=== PATIENT | male | born 1945 | race Caucasian/White ===

== ENCOUNTER 2018-05-13 06:30 | Day surgery (SDC) | payer OTHER ==
[2018-05-12 15:31] LABS: Protime INR 1.28
--- NOTE | 2018-05-12 15:38 | RAD REPORT ---
EXAM DESCRIPTION: Barbara Fam And Fani (2 Views)05/12/2018 2:45 pm CLINICAL HISTORY: Hypertension/preop for cardioversion COMPARISON: 2010 FINDINGS: The lungs appear clear of acute infiltrate. The heart is mildly enlarged. Postsurgical changes involve the chest. IMPRESSION: No acute abnormalities displayed
[2018-05-13] MEDS ORDERED: RIVAROXABAN 20 MG TABLET PO ONE (07:30)
[2018-05-13] MEDS ORDERED: MIDAZOLAM HCL 5 MG/5 ML INJ ONE (07:48)
[2018-05-13] MEDS ORDERED: ATROPINE SULF 1 MG/10 ML SYR IV ONE (07:51)
--- NOTE | 2018-05-13 12:13 | EKG ---
Test Date: 2018-05-13 Test Time: 08:00:29 Blood Donor Recruiter Supervisor: AMY MEASUREMENT RESULTS: Intervals: Rate: 58 MD: 398 QRSD: 84 QT: 436 QTc: 428 Tebbetts: P: 56 MD: 398 QRS: -18 T: 69 INTERPRETIVE STATEMENTS: Sinus bradycardia with 1st degree AV block Otherwise normal ECG Compared to ECG 04/09/2000 02:50:00 First degree AV block now present Sinus rhythm no longer present Electronically Signed On 05-13-18 12:11:48 CDT by Kaleb Bradley
--- NOTE | 2018-05-13 18:27 | OP ---
Date of Procedure: 05/13/2018 Surgeon: Kaleb Bradley MD Procedure: Direct current cardioversion. Indication: Atrial fibrillation. Mr. Swartz is a 73-year-old white male with history of coronary artery bypass surgery in the past. Has recent normal echo and a normal Cardiolite in March. Continues to have some shortness of breath sympto ms as well as fatigue. He was in atrial fibrillation, on Xarelto. I admitted him today for cardiove rsion. Description Of Procedure: He received 8 mg of Versed for IV sedation. He received 1 shock of 100 davin ules and he converted to sinus rhythm with occasional PAC. The patient tolerated the procedure well. There were no complications. Total Conscious Sedation: 30 minutes. Final Diagnosis: Status post successful cardioversion from atrial fibrillation to normal rhythm. Plan: We will continue his present regimen including the Xarelto. He will see me in 2 weeks. The c ase was discussed with the son. SHAYNA/TIFFANIE Voice ID: [id number] Report ID: [id number]
== END 2018-05-13 09:20 | disposition home or self-care (01) ==
LOC: CCL 06:30
PROC: 5A2204Z Restoration of Cardiac Rhythm, Single (ICD-10-PCS; principal; 2018-05-13)
DX: I48.91 Unspecified atrial fibrillation (principal); I65.21 Occlusion and stenosis of right carotid artery; Z87.891 Personal history of nicotine dependence; Z88.0 Allergy status to penicillin; E78.6 Lipoprotein deficiency; I10 Essential (primary) hypertension; I25.810 Atherosclerosis of coronary artery bypass graft(s) without angina pectoris
CPT/HCPCS: 36415; 71046; 85610; 85730; 92960 ×2; 93005; J2250

== ENCOUNTER 2020-10-10 12:46 | Inpatient (IN) | payer OTHER ==
--- OUTSIDE RECORDS SUMMARY | 2020-10-10 12:48 | XMS REPORT | Continuity of Care Document ---
:1945 Author Organization [facility] Address [address] [place] [address] Dr. Guadarrama [address] [place] [id number] Care Team Providers Name Role Phone CHAVA HERNANDEZ Primary Care Physician Unavailable CHAVA HERNANDEZ Attending Clinician Unavailable Breanne RIVERA Attending Clinician Unavailable Payers Payer Name Policy Type Policy Number Effective Date Expiration Date S sugar [employer] PPO [id number] 00:00:00 Problems This patient has no known problems. Allergies, Adverse Reactions, Alerts This patient has no known allergies or adverse reactions. Medications This patient has no known medications. Procedures This patient has no known procedures. Encounters Start End Encounter Admission Attending Care Care Encounter Source Date/Time Date/Time Type Type Clinicians Facility Department ID 2020-08-03 2020-08-04 Outpatient ESME HERNANDEZ MDA NATHANAEL [id number] 07:25:55 06:29:04 SHAWNEE grider 2020-08-02 2020-08-02 Outpatient FADIA SPRINGER MDA MDA [id number] 12:09:49 23:59:00 Augusto grider 2020-08-02 2020-08-02 Outpatient FADIA SPRINGER MDA MDA [id number] 09:30:00 12:08:00 Augusto grider 2020-08-02 2020-08-02 Outpatient FADIA SPRINGER MDA MDA [id number] 09:59:38 09:59:38 Augusot grider 2020-08-02 2020-08-02 Outpatient FADIA SPRINGER MDA MDA [id number] 00:00:00 00:00:00 Augusto grider Results This patient has no known results.
[2020-10-10 14:09] LABS: Absolute Lymphocytes (CBC) 0.5 K/uL (0.7-4.9); Basophils % 0.6 % (0-1.3); Hematocrit 34.7 % (39.6-49.0); MPV 9.5 fL (7.6-11.3); RBC Red Blood Cell Count 3.84 M/uL (4.33-5.43)
--- NOTE | 2020-10-10 14:11 | RAD REPORT ---
EXAM DESCRIPTION: RAD - Chest Single View - 10/10/2020 1:44 pm CLINICAL HISTORY: Fever;SOB Chest pain. COMPARISON: Chest Pa And Lat (2 Views) dated 05/12/2018; CHEST PA AND LAT 2 VIEW dated 04/27/2011; CHES T PA AND LAT 2 VIEW dated 10/17/2006 FINDINGS: Portable technique limits examination quality. Interstitial lung markings are mildly prominent which may indicate interstitial pneumonitis/bronchiti s. Subtle reticular opacities in the lung bases, greater on the left, suggest the possibility of deve loping infiltrate/pneumonia. The heart is enlarged with changes of a prior CABG noted.
[2020-10-10] MEDS ORDERED: ALBUTEROL 2.5 MG/3 ML NEB SOL ONE (14:12)
[2020-10-10] MEDS ORDERED: IPRATROPIUM BROM 0.5MG/2.5ML ONE (14:13)
[2020-10-10 14:16] LABS: Protime INR 1.1
[2020-10-10 14:38] LABS: Bilirubin Direct 0.2 mg/dL (0-0.2); Bilirubin Total 0.8 mg/dL (0.2-1.0); Magnesium 2.2 mg/dL (1.8-2.4); Troponin (Emerg Dept Use Only) 0.04 ng/mL (0.0-0.045)
--- NOTE | 2020-10-10 15:47 | EDPHYS ---
Physician Documentation [facility] Name: Spenser Swartz Jr Age: 75 yrs Sex: Male : 1945 Arrival Date: 10/10/2020 Time: 12:54 Bed 16 Private MD: ED Physician Moisés Irving HPI: 10/10 13:26 This 75 yrs old Male presents to ER via EMS with complaints of shortness of pm1 breath. 13:26 The patient has shortness of breath at rest, with light activity. Onset: The pm1 symptoms/episode began/occurred 2 day(s) ago. Duration: The symptoms are continuous, and are steadily getting worse. The patient's shortness of breath is aggravated by nothing, is alleviated by nothing. Associated signs and symptoms: Pertinent positives: non-productive cough, subjective fever, chills. sore throat, Pertinent negatives: chest pain. Severity of symptoms: in the emergency department the symptoms are worse Pain is currently a 0 / 10. The patient has not recently seen a physician, the patient's primary care provider is Dr. Gandhi. Historical: - Allergies: 13:03 PENICILLINS; jd3 13:03 Codeine; jd3 - Home Meds: 13:03 Allopurinol Oral [Active]; amlodipine oral [Active]; Lisinopril Oral [Active]; jd3 metoprolol succinate oral oral [Active]; gabapentin oral oral [Active]; atorvastatin oral oral [Active]; Metformin Oral [Active]; aspirin Oral [Active]; doxazosin oral oral [Active]; - PMHx: 13:03 Atrial Fib; Diabetes - NIDDM; jd3 - Immunization history:: Adult Immunizations up to date. - Social history:: Smoking status: Patient denies any tobacco usage or history of. ROS: 13:26 Eyes: Negative for injury, pain, redness, and discharge. pm1 13:26 Neck: Negative for injury, pain, and swelling. 13:26 Cardiovascular: Negative for chest pain, palpitations, and edema, Abdomen/GI: Negative for abdominal pain, nausea, vomiting, diarrhea, and constipation, Back: Negative for injury and pain, MS/Extremity: Negative for injury and deformity, Skin: Negative for injury, rash, and discoloration. 13:26 Constitutional: Positive for chills, fever, Negative for poor PO intake. 13:26 ENT: Positive for sore throat, Negative for ear pain. 13:26 Respiratory: Positive for cough, shortness of breath, Negative for sputum production. 13:26 Neuro: Positive for generalized weakness. Exam: 13:26 Constitutional: This is a well developed, well nourished patient who is awake, alert, pm1 and in no acute distress. Head/Face: Normocephalic, atraumatic. Chest/axilla: Normal chest wall appearance and motion. Nontender with no deformity. No lesions are appreciated. Cardiovascular: Regular rate and rhythm with a normal S1 and S2. No gallops, murmurs, or rubs. Normal PMI, no JVD. No pulse deficits. 13:26 Back: No spinal tenderness. No costovertebral tenderness. Full range of motion. Skin: Warm, dry with normal turgor. Normal color with no rashes, no lesions, and no evidence of cellulitis. MS/ Extremity: Pulses equal, no cyanosis. Neurovascular intact. Full, normal range of motion. 13:26 Respiratory: the patient does not display signs of respiratory distress, Respirations: tachypnea, that is mild, Breath sounds: wheezing: expiratory that is mild, is heard diffusely, Respiratory rate: tachypnea at 24 13:26 Abdomen/GI: Inspection: abdomen appears normal, Palpation: abdomen is soft and non-tender, in all quadrants. 13:26 Neuro: Exam negative for acute changes, Orientation: is normal, Mentation: is normal, Motor: is normal, moves all fours. Vital Signs: 13:03 BP 135 / 55; Pulse 72; Resp 24 S; Temp 98.5(O); Pulse Ox 97% on R/A; Weight 95.25 kg jd3 (R); Height 5 ft. 8 in. (172.72 cm) (R); Pain 0/10; 14:00 BP 129 / 40; Pulse 82; Resp 23; Pulse Ox 98% on R/A; zb 15:46 BP 128 / 48; Pulse 67; Resp 18; Temp 98.6; Pulse Ox 98% on R/A; zb 16:10 BP 128 / 48; Pulse 73; Resp 18; Pulse Ox 94% on R/A; zb 13:03 Body Mass Index 31.93 (95.25 kg, 172.72 cm) jd3 MDM: 13:10 Patient medically screened. pm1 15:38 Data reviewed: lab test result(s), BUN/Cr 27/1.43 respectively on 06/07/2016 no other pm1 current labs on record. Today BUN/Cr 59/2.25 respectively. Will order small bolus of fluids in the ER. 15:44 Data reviewed: vital signs. Data interpreted: Pulse oximetry: on 2L(s) per nasal pm1 canula, is 98 %. Interpretation: normal. 15:44 Counseling: I had a detailed discussion with the patient and/or guardian regarding: the pm1 historical points, exam findings, and any diagnostic results supporting the discharge/admit diagnosis, lab results, radiology results, the need for further work-up and treatment in the hospital. 17:02 ED course: CURB-65 and PSI port score indicate admission. Scores of 2 and 97 pm1 respectively. 10/10 13:19 Order name: Basic Metabolic Panel pm1 10/10 13:19 Order name: CBC with Diff pm1 10/10 13:19 Order name: LFT's pm1 10/10 13:19 Order name: Magnesium pm1 10/10 13:19 Order name: NT PRO-BNP pm1 10/10 13:19 Order name: PT-INR pm1 10/10 13:19 Order name: Troponin (emerg Dept Use Only) pm1 10/10 13:19 Order name: COVID-19 pm1 10/10 13:19 Order name: Flu pm1 10/10 13:19 Order name: Strep pm1 10/10 14:12 Order name: CBC with Automated Diff; Complete Time: 14:23 EDMS 10/10 14:17 Order name: Protime (+INR); Complete Time: 14:23 EDMS 10/10 14:18 Order name: CORONAVIRUS EDMS 10/10 14:31 Order name: Group A Streptococcus Rapid Sc; Complete Time: 14:34 EDMS 10/10 13:19 Order name: XRAY Chest (1 view) pm1 10/10 13:19 Order name: EKG; Complete Time: 13:22 pm1 10/10 14:13 Order name: RAD; Complete Time: 14:23 EDMS 10/10 14:36 Order name: Influenza Screen (A ; Complete Time: 14:54 EDMS 10/10 14:38 Order name: Basic Metabolic Panel; Complete Time: 14:54 EDMS 10/10 14:38 Order name: Liver (Hepatic) Function; Complete Time: 14:54 EDMS 10/10 14:38 Order name: Troponin (Emerg Dept Use Only); Complete Time: 14:54 EDMS 10/10 14:38 Order name: NT PRO-BNP; Complete Time: 14:54 EDMS 10/10 14:38 Order name: Magnesium; Complete Time: 14:54 EDMS 10/10 15:02 Order name: SARS-COV-2 RT PCR; Complete Time: 15:11 EDMS 10/10 15:56 Order name: Blood Culture Adult (2) pm1 10/10 13:19 Order name: Cardiac monitoring; Complete Time: 14:58 pm1 10/10 13:19 Order name: EKG - Nurse/Tech; Complete Time: 14:58 pm1 10/10 13:19 Order name: IV Saline Lock; Complete Time: 13:54 pm1 10/10 13:19 Order name: Labs collected and sent; Complete Time: 13:54 pm1 10/10 13:19 Order name: O2 Per Protocol; Complete Time: 13:54 pm1 10/10 13:19 Order name: O2 Sat Monitoring; Complete Time: 13:54 pm1 10/10 13:19 Order name: Droplet/Contact Precautions; Complete Time: 14:03 pm1 Administered Medications: 14:01 Drug: Albuterol - atroVENT (3:1) (2.5 mg - 0.5 mg) 3 ml Route: Nebulizer; zb 14:58 Follow up: Response: No adverse reaction zb 16:30 Drug: Tamiflu 75 mg Route: PO; zb 17:00 Follow up: Response: No adverse reaction zb 16:30 Drug: Rocephin 1 grams Route: IV; Rate: calculated rate; Site: right forearm; zb 16:30 Drug: NS 0.9% 500 ml Route: IV; Rate: bolus; Site: right femoral; zb 17:00 Follow up: Response: No adverse reaction; IV Status: Completed infusion; IV Intake: zb 500ml 18:13 Drug: AZITHromycin 500 mg Route: IVPB; Infused Over: 1 hrs; Site: right forearm; zb 18:30 Follow up: Response: No adverse reaction; IV Status: Infusion continued zb Disposition: 18:58 Co-signature as Attending Physician, Moisés Irving MD. rn Disposition: 10/10/20 15:46 Hospitalization ordered by Lizandro Russell for Inpatient Admission. Preliminary diagnosis are Pneumonia, unspecified organism, Influenza due to other identified influenza virus - Influenza B virus, Acute renal failure. - Bed requested for Telemetry/MedSurg (Inpatient). - Status is Inpatient Admission. zb - Condition is Stable. - Problem is new. - Symptoms have improved. Signatures: Dispatcher [employer] EDDionne De Guzman RN RN dw Moisés Irving MD MD rn Marinas, Patrick, TABLE TOP TILE SETTER TABLE TOP TILE SETTER pm1 Esvin Pichardo RN RN Jordyn Bernal RN RN zyaa Corrections: (The following items were deleted from the chart) 17:49 15:46 Hospitalization Ordered by Lizandro Russell for Inpatient Admission. Preliminary dw diagnosis is Pneumonia, unspecified organism; Influenza due to other identified influenza virus - Influenza B virus; Acute renal failure. Bed requested for Telemetry/MedSurg (Inpatient). Status is Inpatient Admission. Condition is Stable. Problem is new. Symptoms have improved. pm1 18:55 17:49 10/10/2020 15:46 Hospitalization Ordered by Lizandro Russell for Inpatient zb Admission. Preliminary diagnosis is Pneumonia, unspecified organism; Influenza due to other identified influenza virus - Influenza B virus; Acute renal failure. Bed requested for Telemetry/MedSurg (Inpatient). Status is Inpatient Admission. Condition is Stable. Problem is new. Symptoms have improved. dw
--- NOTE | 2020-10-10 15:47 | ER ---
Nurse's Notes [facility] Name: Spenser Swartz Jr Age: 75 yrs Sex: Male : 1945 Arrival Date: 10/10/2020 Time: 12:54 Bed 16 Private MD: Diagnosis: Pneumonia, unspecified organism;Influenza due to other identified influenza virus-Influenza B virus;Acute renal failure Presentation: 10/10 12:54 Chief complaint: EMS states: "for about 2 days now the pt has been having low grade jd3 fever, cough, chills, and worsening shortness of breath on exertion. he has also been reporting getting weaker over the past couple of days.". Coronavirus screen: chills, cough unrelated to allergies, fatigue, fever, shortness of breath, Client presents with at least one sign or symptom that may indicate coronavirus-19. Standard/surgical mask placed on the client. Provider contacted for isolation considerations. Ebola Screen: Patient negative for fever greater than or equal to 101.5 degrees Fahrenheit, and additional compatible Ebola Virus Disease symptoms. Initial Sepsis Screen: Does the patient meet any 2 criteria? No. Patient's initial sepsis screen is negative. Does the patient have a suspected source of infection? No. Patient's initial sepsis screen is negative. Risk Assessment: Do you want to hurt yourself or someone else? Patient reports no desire to harm self or others. Onset of symptoms was October 08, 2020. 12:54 Method Of Arrival: EMS: [facility] jd3 12:54 Acuity: AMA 3 jd3 Historical: - Allergies: 13:03 PENICILLINS; jd3 13:03 Codeine; jd3 - Home Meds: 13:03 Allopurinol Oral [Active]; amlodipine oral [Active]; Lisinopril Oral [Active]; jd3 metoprolol succinate oral oral [Active]; gabapentin oral oral [Active]; atorvastatin oral oral [Active]; Metformin Oral [Active]; aspirin Oral [Active]; doxazosin oral oral [Active]; - PMHx: 13:03 Atrial Fib; Diabetes - NIDDM; jd3 - Immunization history:: Adult Immunizations up to date. - Social history:: Smoking status: Patient denies any tobacco usage or history of. Screenin:00 Abuse screen: Denies threats or abuse. Denies injuries from another. Nutritional zb screening: No deficits noted. Tuberculosis screening: No symptoms or risk factors identified. Fall Risk No fall in past 12 months (0 pts). No secondary diagnosis (0 pts). IV access (20 points). Ambulatory Aid- Crutches/Cane/Walker (15 pts). Gait- Normal/Bed Rest/Wheelchair (0 pts) Mental Status- Oriented to own ability (0 pts). Total Anna Fall Scale indicates Low Risk Score (25-44 pts). Fall prevention measures have been instituted. Side Rails Up X 2 Placed close to Nursing Station Frequent Obs/Assesments occuring Family Present and informed to notify staff if they need to leave bedside As available Patient and Family Educated on Fall Prevention Program and strategies. Assessment: 13:00 General: Appears in no apparent distress. uncomfortable, Behavior is calm, cooperative, zb appropriate for age. Pain: Denies pain. Neuro: Level of Consciousness is awake, alert, obeys commands, Oriented to person, place, time. Cardiovascular: Heart tones S1 S2 Capillary refill < 3 seconds in bilateral fingers Patient's skin is warm and dry. Pulses are all present. Respiratory: Reports shortness of breath at rest cough that is non-productive, dry, Breath sounds with wheezes. Respiratory: Airway is patent Respiratory effort is even, unlabored, shallow, Respiratory pattern is tachypnea. GI: Abdomen is round non-distended. : No signs and/or symptoms were reported regarding the genitourinary system. EENT: No signs and/or symptoms were reported regarding the EENT system. Derm: Skin is intact, is healthy with good turgor. Musculoskeletal: Circulation, motion, and sensation intact. Capillary refill < 3 seconds, in bilateral fingers. Range of motion: intact in all extremities. 14:00 Reassessment: Patient appears in no apparent distress at this time. Patient and/or zb family updated on plan of care and expected duration. Pain level reassessed. Patient is alert, oriented x 3, equal unlabored respirations, skin warm/dry/pink. pt less tachypneic Patient states feeling better. Patient states symptoms have improved. 15:00 Reassessment: Patient appears in no apparent distress at this time. Patient and/or zb family updated on plan of care and expected duration. Pain level reassessed. Patient is alert, oriented x 3, equal unlabored respirations, skin warm/dry/pink. pt able to stand and use urinal. still c/o of weakness. 16:00 Reassessment: Patient appears in no apparent distress at this time. Patient and/or zb family updated on plan of care and expected duration. Pain level reassessed. Patient is alert, oriented x 3, equal unlabored respirations, skin warm/dry/pink. pt in bed. ECP discussing care at bedside. 17:00 Reassessment: Patient appears in no apparent distress at this time. Patient and/or zb family updated on plan of care and expected duration. Pain level reassessed. Patient is alert, oriented x 3, equal unlabored respirations, skin warm/dry/pink. pt talking on the phone to family. denies pain or discomfort at this time. no c/o of SOB. 18:00 Reassessment: Patient appears in no apparent distress at this time. Patient and/or zb family updated on plan of care and expected duration. Pain level reassessed. Patient is alert, oriented x 3, equal unlabored respirations, skin warm/dry/pink. pt resting quietly. 18:30 Reassessment: Patient appears in no apparent distress at this time. Patient and/or zb family updated on plan of care and expected duration. Pain level reassessed. Patient is alert, oriented x 3, equal unlabored respirations, skin warm/dry/pink. admitting status discussed w/ patient. Vital Signs: 13:03 BP 135 / 55; Pulse 72; Resp 24 S; Temp 98.5(O); Pulse Ox 97% on R/A; Weight 95.25 kg [facility] (R); Height 5 ft. 8 in. (172.72 cm) (R); Pain 0/10; 14:00 BP 129 / 40; Pulse 82; Resp 23; Pulse Ox 98% on R/A; zb 15:46 BP 128 / 48; Pulse 67; Resp 18; Temp 98.6; Pulse Ox 98% on R/A; zb 16:10 BP 128 / 48; Pulse 73; Resp 18; Pulse Ox 94% on R/A; zb 13:03 Body Mass Index 31.93 (95.25 kg, 172.72 cm) [facility] ED Course: 12:54 Patient arrived in ED. jd3 12:57 Triage completed. jd3 13:04 Arm band placed on. jd3 13:10 Anthony Suarez NP is PHCP. pm1 13:10 Moisés Irving MD is Attending Physician. pm1 13:26 Jordyn Stephen RN is Primary Nurse. zb 14:03 Inserted saline lock: 20 gauge in right wrist, using aseptic technique. Blood collected.jd3 14:11 Patient has correct armband on for positive identification. Bed in low position. Call zb light in reach. Side rails up X 1. Door closed. Noise minimized. 15:45 Lizandro Russell is Hospitalizing Provider. pm1 18:30 No provider procedures requiring assistance completed. Patient admitted, IV remains in zb place. Administered Medications: 14:01 Drug: Albuterol - atroVENT (3:1) (2.5 mg - 0.5 mg) 3 ml Route: Nebulizer; zb 14:58 Follow up: Response: No adverse reaction zb 16:30 Drug: Tamiflu 75 mg Route: PO; zb 17:00 Follow up: Response: No adverse reaction zb 16:30 Drug: Rocephin 1 grams Route: IV; Rate: calculated rate; Site: right forearm; zb 16:30 Drug: NS 0.9% 500 ml Route: IV; Rate: bolus; Site: right femoral; zb 17:00 Follow up: Response: No adverse reaction; IV Status: Completed infusion; IV Intake: zb 500ml 18:13 Drug: AZITHromycin 500 mg Route: IVPB; Infused Over: 1 hrs; Site: right forearm; zb 18:30 Follow up: Response: No adverse reaction; IV Status: Infusion continued zb Intake: 17:00 IV: 500ml; Total: 500ml. zb Outcome: 15:46 Decision to Hospitalize by Provider. pm1 18:30 Admitted to Med/surg accompanied by tech, via stretcher, room 224, with chart, Report zb called to LYDIA Wilhelm 18:30 Condition: stable 18:30 Instructed on the need for admit. 18:55 Patient left the ED. zb Signatures: Anthony Suarez NP HANDY WORKER pm1 Esvin Pichardo RN RN jd3 Brown, Zipporah, RN RN zb Corrections: (The following items were deleted from the chart) 13:04 13:03 BP 135 / 45; Pulse 72bpm; Resp 24bpm; Spontaneous; Pulse Ox 97% RA; Temp 98.5F jd3 Oral; 95.25 kg Reported; Height 5 ft. 8 in. Reported; BMI: 31.9; Pain 0/10; jd3 14: 11:30 General: Appears in no apparent distress. uncomfortable, Behavior is calm, zb cooperative, appropriate for age, zb 11:30 Pain: Denies pain. zb z 11:30 Neuro: Level of Consciousness is awake, alert, obeys commands, Oriented to zb person, place, time, zb 11:30 Cardiovascular: Heart tones S1 S2 Capillary refill < 3 seconds in bilateral zb fingers Patient's skin is warm and dry. Pulses are all present. zb 11:30 Respiratory: Airway is patent Respiratory effort is even, unlabored, shallow, zb Respiratory pattern is tachypnea z 11:30 GI: zb z 11:30 Respiratory: Reports shortness of breath at rest cough that is non-productive, zb dry, Breath sounds with wheezes zb 11:30 GI: Abdomen is round non-distended, zb z 11:30 : No signs and/or symptoms were reported regarding the genitourinary system. zb z 11:30 EENT: No signs and/or symptoms were reported regarding the EENT system. zb z 11:30 Derm: Skin is intact, is healthy with good turgor, zb z 11:30 Musculoskeletal: Circulation, motion, and sensation intact. Capillary refill < 3 zb seconds, in bilateral fingers. Range of motion: intact in all extremities, zb : 12:30 General: Appears in no apparent distress. uncomfortable, Behavior is calm, zb cooperative, appropriate for age, zb 12:30 Pain: Denies pain. zb z 12:30 Neuro: Level of Consciousness is awake, alert, obeys commands, Oriented to zb person, place, time, zb 12:30 Cardiovascular: Heart tones S1 S2 Capillary refill < 3 seconds in bilateral zb fingers Patient's skin is warm and dry. Pulses are all present. zb :06 01:30 Respiratory: Reports shortness of breath at rest cough that is non-productive, zb dry, Breath sounds with wheezes zb 30 Respiratory: Airway is patent Respiratory effort is even, unlabored, shallow, zb Respiratory pattern is tachypnea zb : : No signs and/or symptoms were reported regarding the genitourinary system. zb zb : GI: Abdomen is round non-distended, zb zb :30 EENT: No signs and/or symptoms were reported regarding the EENT system. zb zb :30 Derm: Skin is intact, is healthy with good turgor, zb zb :30 Musculoskeletal: Circulation, motion, and sensation intact. Capillary refill < 3 zb seconds, in bilateral fingers. Range of motion: intact in all extremities, zb
[2020-10-10] MEDS ORDERED: OSELTAMIVIR 75 MG CAP ONE (16:35)
[2020-10-10] MEDS ORDERED: CEFTRIAXONE/SWI 1gm 1 GM/10 ML SYR ONE (16:35)
[2020-10-10] MEDS ORDERED: NA CHLORIDE 0.9% 500 ML ONE (16:35)
--- NOTE | 2020-10-10 16:58 | P.HP ---
Certification for Inpatient Patient admitted to: Observation With expected LOS: <2 Midnights Practitioner: I am a practitioner with admitting privileges, knowledge of patient current condition, hospital course, and medical plan of care. Services: Services provided to patient in accordance with Admission requirements found in Title 42 Section 412.3 of the Code of Federal Regulations Patient History Date of Service: 10/10/20 Reason for admission: Shortness of breath History of Present Illness: 75-year-old gentleman with a past medical history of chronic atrial fibrillation, hypertension and diabetes mellitus type 2 presented to the emergency department with a complain of upper respiratory symptoms including nasal congestion, sore throat and nonproductive cough of about 3 days duration. He also reports generalized weakness. Blood work in the ED demonstrated moderate leukocytosis. Patient does not meet criteria for sepsis. His COVID 19 test is negative but he tested positive for influenza B. He has no known diagnosis of COPD .The patient was given bronchodilator treatment with partial improvement in shortness of breath. He was not hypoxic on room air. His serum creatinine is elevated above his baseline. Given patient's age, renal insufficiency and his risk of progression of disease, he is hospitalized further management. Allergies codeine Allergy (Verified 05/12/18 14:14) Itching Penicillins Allergy (Verified 05/12/18 14:14) Rash Home Medications: Amlodipine [Norvasc] 10 mg PO DAILY 05/12/18 Atorvastatin Calcium [Lipitor] 40 mg PO BEDTIME 05/12/18 Metoprolol Succinate [Toprol Xl] 100 mg PO DAILY 05/12/18 Rivaroxaban [Xarelto] 20 mg PO DAILY 05/12/18 lisinopriL [Lisinopril] 40 mg PO DAILY 05/12/18 - Past Medical/Surgical History -: Hypertension -: DM type 2 -: Chronic atrial fibrillation -: Coronary artery disease -: CABG -: Rotator cuff surgery - Family History Sister -: Diabetes - Social History Smoking Status: Never smoker Alcohol use: Yes CD- Drugs: No Caffeine use: No Place of Residence: Home Review of Systems Other: Except as documented, all other systems reviewed and negative. Physical Examination - Physical Exam General: Alert, In no apparent distress, Obese HEENT: PERRLA, Mucous membr. moist/pink, Sclerae nonicteric Neck: Supple, JVD not distended Respiratory: Clear to auscultation bilaterally, Normal air movement Cardiovascular: No edema, Normal S1 S2, No murmurs, Irregular heart rate/rhythm Capillary refill: <2 Seconds Gastrointestinal: Normal bowel sounds, Soft and benign, Non-distended, No tenderness Musculoskeletal: No swelling, No tenderness Integumentary: No rashes, No erythema Neurological: Normal speech, Normal strength at 5/5 x4 extr, Cranial nerves 3-12 intact - Studies Laboratory Data (last 24 hrs) 10/10/20 13:49: PT 12.9 H, INR 1.10 10/10/20 13:49: WBC 15.7 H, Hgb 11.5 L, Hct 34.7 L, Plt Count 222 10/10/20 13:49: Sodium 138, Potassium 5.0, BUN 59 H, Creatinine 2.25 H, Glucose 245 H, Magnesium 2.2, Total Bilirubin 0.8, AST 19, ALT 36, Alkaline Phosphatase 191 H Microbiology Data (last 24 hrs): 10/10/20 13:53 Nasopharnyx Influenza Type A Antigen Screen - Final 10/10/20 13:53 Nasopharnyx Influenza Type B Antigen Screen - Final 10/10/20 13:53 Throat Group A Streptococcus Rapid Screen - Final Assessment and Plan - Problems (Diagnosis) (1) Viral pneumonia Current Visit: Yes Status: Acute (2) Influenzal bronchopneumonia Current Visit: Yes Status: Acute (3) DM type 2 (diabetes mellitus, type 2) Current Visit: Yes Status: Acute (4) Chronic atrial fibrillation Current Visit: Yes Status: Acute (5) Hypertension Current Visit: Yes Status: Acute - Plan Place patient under observation. Supportive measures with IV NS. Bronchodilators p.r.n. Will start patient on Tamiflu. Secondary bacterial infection not excluded. Will therefore treat him with IV azithromycin. Follow blood cultures. Atrial fibrillation rate controlled. Validate and reconcile home medications. PT consult. Patient recent serum creatinine baseline is unknown. Trial of IV fluid and monitor BMP for improvement. Insulin sliding scale for glucose management. Monitor CBC to follow leukocytosis. - Advance Directives Does patient have a Living Will: No Does patient have a Durable POA for Healthcare: No - Code Status/Comfort Care Code Status Assessed: Yes Code Status: Full Code
--- NOTE | 2020-10-10 17:07 | P.PN ---
Date of Service: 10/10/20 I discussed advanced directives with patient. He stated he is not having a living will or POSLT. I discussed code status. Patient want to be full code. He has not appointed MPOA. He stated his son Ion Swartz will be his medical decisionmaker. I emphasized the need to have his living will documented. Time spent advanced directive was about 18 minutes.
[2020-10-10] MEDS ORDERED: AZITHROMYCIN IV 500 MG in NA CHLORIDE 0.9% 250 ML IVPB ONE (18:00)
[2020-10-10] MEDS ORDERED: ACETAMINOPHEN 500 MG TAB PO PRN (18:03)
[2020-10-10] MEDS: OSELTAMIVIR 75 MG CAP PO SCH (20:50)
[2020-10-10] MEDS: INSULIN -REGULAR HUMAN 50 UNIT/0.5 ML ML SQ SCH (20:56)
[2020-10-10] MEDS: NA CHLORIDE 0.9% 1,000 ML IV SCH (20:57)
[2020-10-10 21:05] VITALS: BMI 33.2
[2020-10-10] MEDS: HEPARIN 5000 UNIT/ML 1 ML VIAL SQ SCH ×2 (21:35→23:17)
[2020-10-11] MEDS: ALBUTEROL 2.5 MG/3 ML NEB SOL NEB PRN ×2 (01:35→08:37)
[2020-10-11 04:17] LABS: Absolute Lymphocytes (CBC) 0.9 K/uL (0.7-4.9); Basophils % 0.4 % (0-1.3); Hematocrit 28.1 % (39.6-49.0); Lymphocytes % 7.7 % (15.3-44.8); MPV 9.5 fL (7.6-11.3)
[2020-10-11 04:27] LABS: Magnesium 2.2 mg/dL (1.8-2.4); Phosphorus 3.5 mg/dL (2.5-4.9); Potassium 4.5 mmol/L (3.5-5.1)
[2020-10-11] MEDS: NA CHLORIDE 0.9% 1,000 ML IV SCH ×2 (07:23→10:07)
[2020-10-11] MEDS ORDERED: AZITHROMYCIN IV 500 MG in NA CHLORIDE 0.9% 250 ML IVPB SCH (09:00)
[2020-10-11] MEDS: INSULIN -REGULAR HUMAN 50 UNIT/0.5 ML ML SQ SCH ×4 (10:09→20:51)
[2020-10-11] MEDS: HEPARIN 5000 UNIT/ML 1 ML VIAL SQ SCH ×2 (10:09→17:34)
[2020-10-11] MEDS: OSELTAMIVIR 75 MG CAP PO SCH ×2 (10:10→20:52)
--- NOTE | 2020-10-11 12:42 | EKG ---
Test Date: 2020-10-10 Test Time: 14:32:44 Floor Scraper: COLT MEASUREMENT RESULTS: Intervals: Rate: 100 ME: QRSD: 82 QT: 502 QTc: 647 [place]: P: ME: QRS: 54 T: 77 INTERPRETIVE STATEMENTS: Atrial fibrillation with premature ventricular or aberrantly conducted complexes ST elevation, consider inferior injury or acute infarct Prolonged QT ACUTE MO Abnormal ECG Compared to ECG 05/13/2018 08:00:29 Ventricular premature complex(es) now present ST (T wave) deviation now present Prolonged QT interval now present Myocardial infarct finding now present Sinus bradycardia no longer present First degree AV block no longer present Electronically Signed On 10-11-20 12:39:41 BULL WHEEL WORKER by Kaleb Bradley
--- NOTE | 2020-10-11 12:53 | P.PN ---
Subjective Date of Service: 10/11/20 Chief Complaint: Shortness of breath Subjective: Improving (feeling better, breathing better, but requiring 2-3LNC still, mild cough no nausea/vomiting) Review of Systems 10-point ROS is otherwise unremarkable Physical Examination - Vital Signs Temperature: 99.0 F Blood Pressure: 147/50 Pulse: 75 Respirations: 19 Pulse Ox (%): 97 - Physical Exam General: Alert, In no apparent distress HEENT: Sclerae nonicteric Respiratory: Diminished (at bases bilaterally), Other (mildly labored after exertion) Cardiovascular: No edema, Irregular heart rate/rhythm Gastrointestinal: Soft and benign, No tenderness Integumentary: No rashes Neurological: Normal speech, Normal affect - Studies Laboratory Data (last 24 hrs) 10/11/20 03:37: Sodium 141, Potassium 4.5, BUN 58 H, Creatinine 2.02 H, Glucose 172 H, Phosphorus 3.5, Magnesium 2.2 10/11/20 03:37: WBC 11.7 H D, Hgb 9.3 L, Hct 28.1 L D, Plt Count 179 10/10/20 13:49: PT 12.9 H, INR 1.10 10/10/20 13:49: WBC 15.7 H, Hgb 11.5 L, Hct 34.7 L, Plt Count 222 10/10/20 13:49: Sodium 138, Potassium 5.0, BUN 59 H, Creatinine 2.25 H, Glucose 245 H, Magnesium 2.2, Total Bilirubin 0.8, AST 19, ALT 36, Alkaline Phosphatase 191 H Microbiology Data (last 24 hrs): 10/10/20 13:53 Nasopharnyx Influenza Type A Antigen Screen - Final 10/10/20 13:53 Nasopharnyx Influenza Type B Antigen Screen - Final 10/10/20 13:53 Throat Group A Streptococcus Rapid Screen - Final Assessment & Plan Physician Review Additional Text: Viral pneumonia, Flu B Influenzal bronchopneumonia KRISTI on CKD, unclear baseline DM type 2 Chronic Afib HTN continue tamiflu, switch azithro to levaquin for possible bacterial infection follow blood cultures - neg so far afib rate controlled KRISTI improving with IVF, will continue, monitor closely for signs of overload, pt denies CHF history continue insulin sliding scale wean O2 as tolerated Afib/HTN - appear controlled confirm home medications Dispo: anticipate dc home in 24-48hrs, possibly tomorrow Time Spent Managing Pts Care (In Minutes): 35
[2020-10-11] MEDS ORDERED: Levofloxacin 750mg IV 750 MG/150 ML BAG IV SCH (13:00)
[2020-10-11] MEDS: ATORVASTATIN 40 MG TAB PO SCH (20:52)
[2020-10-11] MEDS: GABAPENTIN 300 MG CAP PO SCH (20:52)
[2020-10-11] MEDS: DOXAZOSIN 2 MG TAB PO SCH (21:00)
[2020-10-12] MEDS: HEPARIN 5000 UNIT/ML 1 ML VIAL SQ SCH ×3 (01:31→17:16)
[2020-10-12 04:26] LABS: Absolute Lymphocytes (CBC) 0.7 K/uL (0.7-4.9); Basophils % 0.4 % (0-1.3); Hematocrit 26.6 % (39.6-49.0); Lymphocytes % 6.5 % (15.3-44.8); MPV 9.7 fL (7.6-11.3); RBC Red Blood Cell Count 2.95 M/uL (4.33-5.43)
[2020-10-12 04:42] LABS: Magnesium 2.2 mg/dL (1.8-2.4); Potassium 4.2 mmol/L (3.5-5.1)
[2020-10-12] MEDS: ALBUTEROL 2.5 MG/3 ML NEB SOL NEB PRN ×2 (04:50→10:45)
[2020-10-12 05:01] LABS: Blood Morphology Comment NOT SEEN (NOT SEEN); Platelet Estimate ADEQ
--- NOTE | 2020-10-12 06:48 | RAD REPORT ---
EXAM DESCRIPTION: RAD - Chest Single View - 10/12/2020 6:24 am CLINICAL HISTORY: hypoxia, pneumonia COMPARISON: Portable October 10 TECHNIQUE: AP portable chest image was obtained 10/12/2020 6:24 am . FINDINGS: Lung volumes are similar to comparison. New airspace opacification has developed in the lo wer right lung field. There is increased interstitial opacification throughout both lung cheema with increased central pulmonary vasculature. Cardiomegaly is present. Patchy left perihilar airspace opac ification present as well. Sternotomy wires CABG surgical changes noted. Trachea is midline. No measurable pleural effusion and no pneumothorax. No acute bony abnormality seen. No acute aortic findings suspected. IMPRESSION: Focal right lung base and left perihilar airspace opacification with overall heart, vasc ular interstitial prominence. Bilateral pneumonia is suspected and patient shows failure or volume overload findings as well.
[2020-10-12] MEDS: ASPIRIN 81 MG CHEWABLE TABLET PO SCH (08:40)
[2020-10-12] MEDS: AMLODIPINE 10 MG TAB PO SCH (08:40)
[2020-10-12] MEDS: OSELTAMIVIR 75 MG CAP PO SCH ×2 (08:40→21:45)
[2020-10-12] MEDS: METOPROLOL XL 50 MG TAB PO SCH (08:40)
[2020-10-12] MEDS: INSULIN -REGULAR HUMAN 50 UNIT/0.5 ML ML SQ SCH ×4 (08:42→21:46)
[2020-10-12] MEDS: allopurinoL 300 MG TAB PO SCH (08:45)
[2020-10-12] MEDS ORDERED: FUROSEMIDE 40 MG/4 ML VIAL IV ONE (11:52)
--- NOTE | 2020-10-12 11:59 | P.CNS ---
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 Cr was 2.2 on admission, started on IVF cr down to 1.8, pt stated during his last visit with PCP he was instructed to stop metfromin due to worsening RFT denied NSAID in take pt laso was taking diuretics prn for edema Review of Systems: Head and Neck: No red eye. No ear pain. GI: No nausea, no vomiting. : No polyuria, no dysuria, no hematuria. Field Staff: Not applicable. Respiratory: shortness of breath, ocassional edema Cardiovascular: No chest pain or palpitation Endocrine: No polydipsia. Skin: No rash. Neuro: Has neuropathy. Musculoskeletal: No back pain . 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 cr improved now , off IVF will give lasix X1 will order UA and UPC agree to hold losartan DM as per primary team HTN BP controllled Infelunza positive on 3liters NC CXR with signs of congestion and fluid overload total time spent 45min will give lasix X1 Allergies codeine Allergy (Verified 05/12/18 14:14) Itching Penicillins Allergy (Verified 05/12/18 14:14) Rash Home Medications: Amlodipine [Norvasc] 10 mg PO DAILY 05/12/18 Atorvastatin Calcium [Lipitor] 40 mg PO BEDTIME 05/12/18 Metoprolol Succinate [Toprol Xl] 50 mg PO DAILY 05/12/18 lisinopriL [Lisinopril] 40 mg PO DAILY 05/12/18 Allopurinol 1 tab PO DAILY 10/10/20 Alpha Lipoic Acid 200 mg PO DAILY 10/10/20 Aspirin 1 tab PO DAILY 10/10/20 Cholecalciferol (Vitamin D3) [Vitamin D3] 5,000 unit PO DAILY 10/10/20 Cyanocobalamin (Vitamin B-12) [Vitamin B-12] 1,000 mcg PO DAILY 10/10/20 Cyanocobalamin (Vitamin B-12) [Vitamin B12] 1,000 mcg PO DAILY 10/10/20 Doxazosin Mesylate 1 tab PO BEDTIME 10/10/20 Gabapentin 300 mg PO BEDTIME 10/10/20 Glutha Dose 1 tab PO DAILY 10/10/20 L.acidoph,Paracasei, B.lactis [Probiotic] 1 cap PO DAILY 10/10/20 Mv-Mn/Iron/Folic Acid/Herb 190 [Vitamin D3 Complete Caplet] 5,000 units PO DAILY 10/10/20 Prevagen 1 tab PO DAILY 10/10/20 Ubidecarenone/Vit E Acet [Co Q-10 100 mg Softgel] 1 each PO DAILY 10/10/20 Vit C/E/Zn/Coppr/Lutein/Zeaxan [Preservision Areds 2 Softgel] 1 each PO BID 10/10/20 - Past Medical/Surgical History Diabetic: Yes -: Hypertension -: DM type 2 -: Chronic atrial fibrillation -: Coronary artery disease -: Benign Tremors -: CABG -: Rotator cuff surgery - Family History Sister Medical History: Diabetes Father Medical History: Lung disease Notes: emphysema - Social History Alcohol use: Yes CD- Drugs: No Caffeine use: Yes Place of Residence: Home Physical Examination Temp Pulse Resp BP Pulse Ox 98.3 F 78 26 H 125/48 L 94 10/12/20 08:00 10/12/20 08:00 10/12/20 08:00 10/12/20 08:00 10/12/20 08:00
[2020-10-12] MEDS ORDERED: PNEUMOCOCCAL VACCINE 0.5 ML IMVAC ONE (12:00)
[2020-10-12 14:45] LABS: Urine Appearance CLEAR; Urine Bilirubin NEGATIVE (NEG); Urine Blood NEGATIVE (NEG); Urine Color YELLOW; Urine Glucose NEGATIVE (NEG); Urine Protein NEGATIVE (NEG); Urine Urobilinogen 0.2 mg/dL (0.2-1.0)
[2020-10-12 14:49] LABS: Urine Microscopic Reflex NO UMIC
[2020-10-12 14:53] LABS: Urine Protein/Creatinine Ratio 0.35 ratio (<0.15)
--- NOTE | 2020-10-12 15:19 | P.PN ---
Subjective Date of Service: 10/12/20 Chief Complaint: Shortness of breath Subjective: No new changes (continues with SOB, reports overall feeling better - chills improved) Review of Systems 10-point ROS is otherwise unremarkable Physical Examination - Vital Signs Temperature: 98.2 F Blood Pressure: 126/59 Pulse: 79 Respirations: 27 Pulse Ox (%): 94 - Physical Exam General: Alert, In no apparent distress HEENT: Sclerae nonicteric Respiratory: Crackles/rales, Other (mildly labored on 2-3LNC) Cardiovascular: Edema (1+ bilateral lower extremity edema), Irregular heart rate/rhythm Gastrointestinal: Soft and benign, No tenderness Musculoskeletal: No tenderness Integumentary: No significant lesion Neurological: Normal speech, Normal affect - Studies Microbiology Data (last 24 hrs): 10/10/20 13:53 Throat Culture & Sensitivity - Final NORMAL UPPER RESPIRATORY DENZEL GROWN. Assessment & Plan Physician Review Additional Text: Viral pneumonia, Flu B Influenzal bronchopneumonia KRISTI on CKD, unclear baseline DM type 2 Chronic Afib HTN continue tamiflu, levaquin for possible bacterial superinfection follow blood cultures - neg so far afib rate controlled KRISTI improved with IVF - pt seemed volume overloaded yesterday evening so fluids were dc'd continues to have some SOB and oxygen requirement. CXR today with some pulm edema nephrology consulted for KRISTI on CKD and volume overload will give IV Lasix x1 today continue insulin sliding scale Afib/HTN - appears controlled confirm home medications Dispo: anticipate dc home in 24-48hrs, possibly tomorrow, weaning oxygen Time Spent Managing Pts Care (In Minutes): 35
[2020-10-12 15:57] LABS: Urine Appearance CLEAR; Urine Bilirubin NEGATIVE (NEG); Urine Blood NEGATIVE (NEG); Urine Color YELLOW; Urine Glucose NEGATIVE (NEG); Urine Protein NEGATIVE (NEG); Urine Urobilinogen 0.2 mg/dL (0.2-1.0)
[2020-10-12 15:58] LABS: Urine Microscopic Reflex NO UMIC
--- NOTE | 2020-10-12 19:20 | RAD REPORT ---
EXAM DESCRIPTION: US - Renal Ultrasound-Complete - 10/12/2020 6:52 pm CLINICAL HISTORY: Acute renal insufficiency COMPARISON: None. FINDINGS: The right kidney measures 10 cm with an increased echotexture. The left kidney measures 9 cm with an increased echotexture. Hydronephrosis is not seen. No gross abnormality of bladder is seen IMPRESSION: Increased renal echotexture consistent with parenchymal disease
[2020-10-12] MEDS: DOXAZOSIN 2 MG TAB PO SCH (21:44)
[2020-10-12] MEDS: GABAPENTIN 300 MG CAP PO SCH (21:45)
[2020-10-12] MEDS: ATORVASTATIN 40 MG TAB PO SCH (21:45)
[2020-10-13] MEDS: HEPARIN 5000 UNIT/ML 1 ML VIAL SQ SCH ×3 (01:10→17:36)
[2020-10-13 04:21] LABS: Absolute Lymphocytes (CBC) 0.9 K/uL (0.7-4.9); Basophils % 0.7 % (0-1.3); Hematocrit 26.4 % (39.6-49.0); Lymphocytes % 10.6 % (15.3-44.8); MPV 9.4 fL (7.6-11.3); RBC Red Blood Cell Count 2.93 M/uL (4.33-5.43)
[2020-10-13 04:31] LABS: Magnesium 2.4 mg/dL (1.8-2.4); Potassium 4.5 mmol/L (3.5-5.1)
[2020-10-13] MEDS: INSULIN -REGULAR HUMAN 50 UNIT/0.5 ML ML SQ SCH ×3 (07:30→16:30)
[2020-10-13] MEDS: METOPROLOL XL 50 MG TAB PO SCH (09:21)
[2020-10-13] MEDS: allopurinoL 300 MG TAB PO SCH (09:21)
[2020-10-13] MEDS: OSELTAMIVIR 75 MG CAP PO SCH (09:21)
[2020-10-13] MEDS: AMLODIPINE 10 MG TAB PO SCH (09:21)
[2020-10-13] MEDS: ASPIRIN 81 MG CHEWABLE TABLET PO SCH (09:21)
--- NOTE | 2020-10-13 10:33 | P.DS ---
Admission Date: 10/11/20 Discharge Date: 10/13/20 (Hospitalist) Disposition: ROUTINE DISCHARGE Discharge Condition: FAIR Reason for Admission: Congestive heart failure Brief History of Present Illness: Patient is 75 years of age admitted with shortness of breath elevated BNP presumed heart failure the also has chronic renal failure him a Haemophilus influenza B positive seen by Nephrology no evidence of sepsis Hospital Course: Patient did well no new complaints is AFib remain control seen by Nephrology renal function was little better improved with diuretics renal ultrasound chronic renal disease patient to be discharged home resume his home medications added some Lasix continue with anti influenza therapy for another 3 days the time of discharge he was alert oriented responsive cooperative vital signs all stable AFib remained controlled as chest was clear cardiovascular system os sounds normal patient is in AFib abdomen soft extremities no edema the check room air pulse ox prior to discharge ambulate Vital Signs/Physical Exam: Temp Pulse Resp BP Pulse Ox 98.1 F 91 H 25 H 133/63 96 10/13/20 08:00 10/13/20 09:21 10/13/20 08:00 10/13/20 09:21 10/13/20 08:00 Laboratory Data at Discharge: WBC 8.8 K/uL (4.3-10.9) D 10/13/20 03:53 Hgb 8.9 g/dL (13.6-17.9) L 10/13/20 03:53 Hct 26.4 % (39.6-49.0) L 10/13/20 03:53 Plt Count 200 K/uL (152-406) 10/13/20 03:53 PT 12.9 SECONDS (9.5-12.5) H 10/10/20 13:49 INR 1.10 10/10/20 13:49 Sodium 143 mmol/L (136-145) 10/13/20 03:53 Potassium 4.5 mmol/L (3.5-5.1) 10/13/20 03:53 BUN 52 mg/dL (7-18) H 10/13/20 03:53 Creatinine 1.89 mg/dL (0.55-1.3) H 10/13/20 03:53 Glucose 119 mg/dL (74-106) H 10/13/20 03:53 Phosphorus 3.5 mg/dL (2.5-4.9) 10/11/20 03:37 Magnesium 2.4 mg/dL (1.8-2.4) 10/13/20 03:53 Total Bilirubin 0.8 mg/dL (0.2-1.0) 10/10/20 13:49 AST 19 U/L (15-37) 10/10/20 13:49 ALT 36 U/L (12-78) 10/10/20 13:49 Alkaline Phosphatase 191 U/L (45-117) H 10/10/20 13:49 Home Medications: Amlodipine [Norvasc*] 10 mg PO DAILY 05/12/18 Atorvastatin Calcium [Lipitor] 40 mg PO BEDTIME 05/12/18 Metoprolol Succinate [Toprol Xl] 50 mg PO DAILY 05/12/18 lisinopriL [Lisinopril] 40 mg PO DAILY 05/12/18 Allopurinol 1 tab PO DAILY 10/10/20 Alpha Lipoic Acid 200 mg PO DAILY 10/10/20 Aspirin 1 tab PO DAILY 10/10/20 Cholecalciferol (Vitamin D3) [Vitamin D3] 5,000 unit PO DAILY 10/10/20 Cyanocobalamin (Vitamin B-12) [Vitamin B-12] 1,000 mcg PO DAILY 10/10/20 Cyanocobalamin (Vitamin B-12) [Vitamin B12] 1,000 mcg PO DAILY 10/10/20 Doxazosin Mesylate 1 tab PO BEDTIME 10/10/20 Gabapentin 300 mg PO BEDTIME 10/10/20 Glutha Dose 1 tab PO DAILY 10/10/20 L.acidoph,Paracasei, B.lactis [Probiotic] 1 cap PO DAILY 10/10/20 Mv-Mn/Iron/Folic Acid/Herb 190 [Vitamin D3 Complete Caplet] 5,000 units PO DAILY 10/10/20 Prevagen 1 tab PO DAILY 10/10/20 Ubidecarenone/Vit E Acet [Co Q-10 100 mg Softgel] 1 each PO DAILY 10/10/20 Vit C/E/Zn/Coppr/Lutein/Zeaxan [Preservision Areds 2 Softgel] 1 each PO BID 10/10/20 Furosemide [Lasix] 40 mg PO DAILY 30 Days #30 tab 10/13/20 Oseltamivir [Tamiflu*] 75 mg PO BID #6 cap 10/13/20 New Medications: Furosemide [Lasix] 40 mg PO DAILY 30 Days #30 tab Oseltamivir [Tamiflu*] 75 mg PO BID #6 cap Followup: Unknown,U [Primary Care Provider] -
[2020-10-13 14:19] VITALS: O2SAT 95
--- NOTE | 2020-10-13 14:26 | P.PN ---
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 Cr was 2.2 on admission, started on IVF cr down to 1.8, today feels better , but cont to require oxygen Cr stable will give lasix X1 Review of Systems: Head and Neck: No red eye. No ear pain. GI: No nausea, no vomiting. : No polyuria, no dysuria, no hematuria. Production Control Technologist: Not applicable. Respiratory: shortness of breath improved Cardiovascular: No chest pain or palpitation Endocrine: No polydipsia. Skin: No rash. Neuro: Has neuropathy. Musculoskeletal: No back pain . 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
[2020-10-13] MEDS ORDERED: FUROSEMIDE 40 MG/4 ML VIAL IV ONE (14:28)
[2020-10-13 17:33] VITALS: BP 142/64; TEMP 97.2
== END 2020-10-13 18:36 | disposition home or self-care (01) | DRG 194 ==
LOC: ER 12:46 → ERHOLD 16:47 → 2ND 18:13 → OBSVTOIN 10-11 11:24
PROVIDERS: ADMIT Internal Medicine; ATTEND Internal Medicine Sleep Medicine
DX: J10.08 Influenza due to other identified influenza virus with other specified pneumonia (principal); I48.20 Chronic atrial fibrillation, unspecified; I12.0 Hypertensive chronic kidney disease with stage 5 chronic kidney disease or end stage renal disease; N18.5 Chronic kidney disease, stage 5; N17.9 Acute kidney failure, unspecified; J12.9 Viral pneumonia, unspecified; I25.10 Atherosclerotic heart disease of native coronary artery without angina pectoris; E86.0 Dehydration; E11.22 Type 2 diabetes mellitus with diabetic chronic kidney disease; B96.3 Hemophilus influenzae [H. influenzae] as the cause of diseases classified elsewhere; E66.9 Obesity, unspecified; Z68.33 Body mass index [BMI] 33.0-33.9, adult; Z88.0 Allergy status to penicillin; Z79.82 Long term (current) use of aspirin; Z88.5 Allergy status to narcotic agent; Z79.84 Long term (current) use of oral hypoglycemic drugs; Z79.899 Other long term (current) drug therapy; Z79.01 Long term (current) use of anticoagulants; Z95.1 Presence of aortocoronary bypass graft; Z20.828 Contact with and (suspected) exposure to other viral communicable diseases; Z23 Encounter for immunization
CPT/HCPCS: 36415; 71045; 76770; 80048; 80076; 81003; 82570; 82947; 83735; 83880; 84100; 84156; 84484; 85025; 85610; 87040; 87070; 87081; 87804; 90471; 90732; 93005; 94640; 94760; 96365; 96375; 97112; 97116; 97161; 97530; 99285; J0456; J0696; J1644; J1940; J7030; J7040; J7050; U0003

== ENCOUNTER 2020-12-18 05:41 | Inpatient (IN) | payer OTHER ==
--- OUTSIDE RECORDS SUMMARY | 2020-12-18 05:44 | XMS REPORT | Continuity of Care Document ---
:1945 Author Organization [facility] Address [address] [place] [address] Dr. Guadarrama [address] [place] [id number] Care Team Providers Name Role Phone CHAVA HERNANDEZ Primary Care Physician Unavailable CHAVA HERNANDEZ Attending Clinician Unavailable Breanne RIVERA Attending Clinician Unavailable Payers Payer Name Policy Type Policy Number Effective Date Expiration Date S sugar [employer] PPO [id number] 00:00:00 Problems This patient has no known problems. Allergies, Adverse Reactions, Alerts This patient has no known allergies or adverse reactions. Medications This patient has no known medications. Procedures This patient has no known procedures. Encounters Start End Encounter Admission Attending Care Care Encounter Source Date/Time Date/Time Type Type Clinicians Facility Department ID 2020-08-03 2020-08-04 Outpatient ESME HERNANDEZ MDA NATHANAEL [id number] 07:25:55 06:29:04 SHAWNEE grider 2020-08-02 2020-08-02 Outpatient FADIA SPRINGER MDA MDA [id number] 12:09:49 23:59:00 Augusto grider 2020-08-02 2020-08-02 Outpatient FADIA SPRINGER MDA MDA [id number] 09:30:00 12:08:00 Augusto grider 2020-08-02 2020-08-02 Outpatient ESME VILLEGASHTFADIA Lao NATHANAEL MDA [id number] 09:59:38 09:59:38 Augusto grider 2020-08-02 2020-08-02 Outpatient FADIA SPRINGER MDA MDA [id number] 00:00:00 00:00:00 Augusto grider Results This patient has no known results.
[2020-12-18] MEDS ORDERED: IPRATROPIUM BROM 0.5MG/2.5ML ONE (06:16)
[2020-12-18] MEDS ORDERED: LEVALBUTEROL 1.25 MG/3 ML NEB ONE (06:17)
[2020-12-18 06:22] LABS: Absolute Lymphocytes (CBC) 0.8 K/uL (0.7-4.9); Basophils % 0.5 % (0-1.3); Hematocrit 32.8 % (39.6-49.0); Lymphocytes % 5.3 % (15.3-44.8); MPV 8.1 fL (7.6-11.3); RBC Red Blood Cell Count 3.84 M/uL (4.33-5.43)
[2020-12-18 06:29] LABS: Protime INR 1.16
[2020-12-18] MEDS ORDERED: ACETAMINOPHEN 325 MG TABLET ONE (06:37)
[2020-12-18 06:44] LABS: ALT/SGPT 40 U/L (12-78); AST/SGOT 23 U/L (15-37); Albumin 4.2 g/dL (3.4-5.0); Alkaline Phosphatase 207 U/L (45-117); BUN Blood Urea Nitrogen 28 mg/dL (7-18); Bicarbonate 23 mmol/L (21-32); Bilirubin Direct 0.3 mg/dL (0-0.2); Bilirubin Total 1.1 mg/dL (0.2-1.0); Glucose Level 170 mg/dL (74-106); Magnesium 2.2 mg/dL (1.8-2.4); NT PRO-BNP 1526 pg/mL (<450); Potassium 4.3 mmol/L (3.5-5.1); Protein, Total 6.8 g/dL (6.4-8.2); Sodium Level 142 mmol/L (136-145); Troponin (Emerg Dept Use Only) < 0.02 ng/mL (0.0-0.045)
[2020-12-18] MEDS ORDERED: NA CHLORIDE 0.9% 250 ML ONE (06:53)
[2020-12-18] MEDS ORDERED: CEFTRIAXONE/SWI 1gm 1 GM/10 ML SYR ONE (06:53)
[2020-12-18] MEDS ORDERED: AZITHROMYCIN 500 MG INJ IVPB ONE (06:53)
--- NOTE | 2020-12-18 07:13 | EDPHYS ---
Physician Documentation [facility] Name: Spenser Swartz Jr Age: 75 yrs Sex: Male : 1945 Arrival Date: 12/18/2020 Time: 05:42 Bed 3 Private MD: ED Physician Aneesh Lares HPI: 12/18 06:07 This 75 yrs old Male presents to ER via EMS with complaints of Respiratory mh7 Distress. 06:07 The patient has shortness of breath at rest. Onset: The symptoms/episode began/occurred mh7 today, at 02:30. Duration: The symptoms are continuous, and are unchanged since they started. The patient's shortness of breath is aggravated by supine position, is alleviated by nothing. Associated signs and symptoms: Pertinent positives: non-productive cough, Pertinent negatives: chest pain, productive cough, diaphoresis, dizziness, fever, hemoptysis, loss of consciousness, nausea, numbness in extremities, visual changes, vomiting. Severity of symptoms: At their worst the symptoms were moderate today, in the emergency department the symptoms have improved moderately. States that he choked on some soda then felt SOB when he tried to lay down. EMS reports O2 Sat of 82 % at the scene.. Historical: - Allergies: 05:56 Codeine; bb 05:56 PENICILLINS; bb - Home Meds: 05:56 Allopurinol Oral [Active]; amlodipine oral [Active]; Aspirin Oral [Active]; bb atorvastatin Oral [Active]; doxazosin Oral [Active]; gabapentin Oral [Active]; lisinopril Oral [Active]; Metformin Oral [Active]; metoprolol succinate Oral [Active]; - PMHx: 05:56 Atrial Fib; Diabetes - NIDDM; Hypertension; bb - PSHx: 05:56 CABG; bb - Immunization history:: Adult Immunizations up to date. - Social history:: Smoking status: unknown. ROS: 06:07 Constitutional: Negative for fever, chills, and weight loss, Eyes: Negative for injury, mh7 pain, redness, and discharge, ENT: Negative for injury, pain, and discharge, Neck: Negative for injury, pain, and swelling, Cardiovascular: Negative for chest pain, palpitations, and edema, Abdomen/GI: Negative for abdominal pain, nausea, vomiting, diarrhea, and constipation, Back: Negative for injury and pain, : Negative for injury, bleeding, discharge, and swelling, MS/Extremity: Negative for injury and deformity, Skin: Negative for injury, rash, and discoloration, Neuro: Negative for headache, weakness, numbness, tingling, and seizure, Psych: Negative for depression, anxiety, suicide ideation, homicidal ideation, and hallucinations, Allergy/Immunology: Negative for hives, rash, and allergies, Endocrine: Negative for neck swelling, polydipsia, polyuria, polyphagia, and marked weight changes, Hematologic/Lymphatic: Negative for swollen nodes, abnormal bleeding, and unusual bruising. Exam: 06:07 Head/Face: Normocephalic, atraumatic. Eyes: Pupils equal round and reactive to light, mh7 extra-ocular motions intact. Lids and lashes normal. Conjunctiva and sclera are non-icteric and not injected. Cornea within normal limits. Periorbital areas with no swelling, redness, or edema. Neck: Trachea midline, no thyromegaly or masses palpated, and no cervical lymphadenopathy. Supple, full range of motion without nuchal rigidity, or vertebral point tenderness. No Meningismus. Chest/axilla: Normal chest wall appearance and motion. Nontender with no deformity. No lesions are appreciated. Cardiovascular: Regular rate and rhythm with a normal S1 and S2. No gallops, murmurs, or rubs. Normal PMI, no JVD. No pulse deficits. 06:07 Back: No spinal tenderness. No costovertebral tenderness. Full range of motion. Skin: Warm, dry with normal turgor. Normal color with no rashes, no lesions, and no evidence of cellulitis. MS/ Extremity: Pulses equal, no cyanosis. Neurovascular intact. Full, normal range of motion. Neuro: Awake and alert, GCS 15, oriented to person, place, time, and situation. Cranial nerves II-XII grossly intact. Motor strength 5/5 in all extremities. Sensory grossly intact. Cerebellar exam normal. Normal gait. Psych: Awake, alert, with orientation to person, place and time. Behavior, mood, and affect are within normal limits. 06:07 Constitutional: The patient appears alert, awake, uncomfortable. 06:07 Respiratory: mild respiratory distress is noted, Respirations: tachypnea, that is mild, Breath sounds: rhonchi, that are moderate, are scattered, Respiratory rate: 28 Vital Signs: 05:52 BP 156 / 49; Pulse 82; Resp 28; Temp 100.9(A); Pulse Ox 98% on 15% Non-rebreather mask; bb Weight 93.44 kg (R); Height 5 ft. 8 in. (172.72 cm) (R); Pain 0/10; 07:39 BP 108 / 53; Pulse 67; Resp 20; Pulse Ox 98% on 4 lpm NC; ph 08:39 BP 123 / 47; Pulse 70; Resp 18; Pulse Ox 97% on R/A; ph 05:52 Body Mass Index 31.32 (93.44 kg, 172.72 cm) bb MDM: 07:11 Differential diagnosis: Anemia Anxiety Reaction asthma, Bronchitis CHF exacerbation, mh7 Chronic Obstructive Pulmonary Disease Myocardial Infarction pneumonia, pulmonary edema. Data reviewed: vital signs, nurses notes, EMS record, old medical records, lab test result(s), cardiac enzymes, CBC, electrolytes, urinalysis, EKG, radiologic studies, plain films. Data interpreted: Pulse oximetry: on BiPAP is 100 %. Interpretation: acceptable. Counseling: I had a detailed discussion with the patient and/or guardian regarding: the historical points, exam findings, and any diagnostic results supporting the discharge/admit diagnosis, the presence of at least one elevated blood pressure reading (>120/80) during this emergency department visit, lab results, radiology results, the need for further work-up and treatment in the hospital. Response to treatment: the patient's symptoms have markedly improved after treatment. 07:13 Patient medically screened. 12/18 05:51 Order name: Basic Metabolic Panel; Complete Time: 07:06 12/18 05:51 Order name: CBC with Diff 12/18 05:51 Order name: LFT's; Complete Time: 07:06 12/18 05:51 Order name: Magnesium; Complete Time: 07:06 12/18 05:51 Order name: NT PRO-BNP; Complete Time: 07:06 12/18 05:51 Order name: PT-INR; Complete Time: 07:06 12/18 05:51 Order name: Troponin (emerg Dept Use Only); Complete Time: 07:06 12/18 05:51 Order name: XRAY Chest (1 view) [facility] 12/18 06:14 Order name: Blood Culture Adult (2) [facility] 12/18 08:23 Order name: COVID-19/FLU A+B [facility] 12/18 09:21 Order name: CBC Smear Scan [facility] 12/18 05:51 Order name: EKG; Complete Time: 05:52 [facility] 12/18 05:51 Order name: Cardiac monitoring; Complete Time: 06:02 [facility] 12/18 05:51 Order name: EKG - Nurse/Tech; Complete Time: 06:02 [facility] 12/18 05:51 Order name: IV Saline Lock; Complete Time: 06:02 [facility] 12/18 05:51 Order name: Labs collected and sent; Complete Time: 06:02 [facility] 12/18 05:51 Order name: O2 Per Protocol; Complete Time: 06:02 [facility] 12/18 05:51 Order name: O2 Sat Monitoring; Complete Time: 06:02 [facility] Administered Medications: 06:25 Drug: Tylenol 650 mg Route: PO; mg2 06:43 Drug: Rocephin - (cefTRIAXone) 1 grams Route: IVPB; Infused Over: 30 mins; Site: left wh forearm; 06:45 Drug: AZITHromycin 500 mg Route: IVPB; Infused Over: 1 hrs; Site: left forearm; 08:22 Drug: Lasix 40 mg Route: IVP; Site: left forearm; Disposition: 12/18/20 07:13 Hospitalization ordered by Lizandro Russell for Inpatient Admission. Preliminary diagnosis are CHF Exacerbation, Pneumonia, Hypoxia. - Bed requested for Telemetry/MedSurg (Inpatient). - Status is Inpatient Admission. sv - Condition is Stable. - Problem is new. - Symptoms have improved. Signatures: Dispatcher [employer] EDMS Shauna Swift RN RN sv Woody, Diana RN Pauline Quiñonez RN RN bb Hall, Patricia, RN RN ph Habalo, Winsy, RN RN Gerson Garcia RN RN mg2 Aneesh Lares MD MD 7 Corrections: (The following items were deleted from the chart) 07:43 07:10 Influenza Screen (A \T\ B)+BA.LAB.BRZ ordered. EDMT EDMT 07:43 07:10 CORONAVIRUS+MR.LAB.BRZ ordered. EDMT EDMS 08:58 07:13 Hospitalization Ordered by Lizandro Russell for Inpatient Admission. Preliminary dw diagnosis is CHF Exacerbation; Pneumonia; Hypoxia. Bed requested for Telemetry/MedSurg (Inpatient). Status is Inpatient Admission. Condition is Stable. Problem is new. Symptoms have improved. [facility] 09:40 08:58 12/18/2020 07:13 Hospitalization Ordered by Lizandro Russell for Inpatient sv Admission. Preliminary diagnosis is CHF Exacerbation; Pneumonia; Hypoxia. Bed requested for Telemetry/MedSurg (Inpatient). Status is Inpatient Admission. Condition is Stable. Problem is new. Symptoms have improved. dw
--- NOTE | 2020-12-18 07:13 | ER ---
Nurse's Notes [facility] Name: Spenser Swartz Jr Age: 75 yrs Sex: Male : 1945 Arrival Date: 12/18/2020 Time: 05:42 Bed 3 Private MD: Diagnosis: CHF Exacerbation;Pneumonia;Hypoxia Presentation: 12/18 05:52 Chief complaint: EMS states: they were toned out for report of pt in respiratory bb distress after choking on root beer earlier tonight. Coronavirus screen: At this time, the client does not indicate any symptoms associated with coronavirus-19. Ebola Screen: No symptoms or risks identified at this time. Initial Sepsis Screen: Does the patient meet any 2 criteria? RR > 20 per min. No. Patient's initial sepsis screen is negative. Does the patient have a suspected source of infection? No. Patient's initial sepsis screen is negative. Risk Assessment: Do you want to hurt yourself or someone else? Patient reports no desire to harm self or others. Onset of symptoms was December 18, 2020. 05:52 Method Of Arrival: EMS: [facility] bb 05:52 Acuity: AMA 1 bb 05:52 Care prior to arrival: Glucose check: 245 Oxygen administered. via a non-rebreather bb mask. Triage Assessment: 06:06 Respiratory: Reports shortness of breath at rest. mg2 06:06 General: Appears. Respiratory: the patient has mild shortness of breath. mg2 Historical: - Allergies: 05:56 Codeine; bb 05:56 PENICILLINS; bb - Home Meds: 05:56 Allopurinol Oral [Active]; amlodipine oral [Active]; Aspirin Oral [Active]; bb atorvastatin Oral [Active]; doxazosin Oral [Active]; gabapentin Oral [Active]; lisinopril Oral [Active]; Metformin Oral [Active]; metoprolol succinate Oral [Active]; - PMHx: 05:56 Atrial Fib; Diabetes - NIDDM; Hypertension; bb - PSHx: 05:56 CABG; bb - Immunization history:: Adult Immunizations up to date. - Social history:: Smoking status: unknown. Screenin:04 Abuse screen: Denies threats or abuse. Denies injuries from another. Nutritional mg2 screening: No deficits noted. Tuberculosis screening: No symptoms or risk factors identified. Fall Risk IV access (20 points). Assessment: 06:02 General: Appears distressed, Behavior is calm, cooperative. Pain: Denies pain. Neuro: mg2 Level of Consciousness is awake, alert, obeys commands, Oriented to person, place, time, situation. Respiratory: Airway is patent Respiratory effort is even, labored, Respiratory pattern is tachypnea Breath sounds with wheezes bilaterally. in right upper lobe and left upper lobe. GI: No signs and/or symptoms were reported involving the gastrointestinal system. : No signs and/or symptoms were reported regarding the genitourinary system. EENT: No signs and/or symptoms were reported regarding the EENT system. Derm: Skin is intact, is healthy with good turgor, Skin is pink, warm \T\ dry. normal. Musculoskeletal: Circulation, motion, and sensation intact. Capillary refill < 3 seconds. 06:05 Reassessment: patient started on BIPAP \T\ 70% FIO2. mg2 06:06 Cardiovascular: Rhythm is atrial fibrillation. mg2 06:53 Reassessment: Patient appears in no apparent distress at this time. Patient and/or mg2 family updated on plan of care and expected duration. Pain level reassessed. 07:14 Reassessment: Patient appears in no apparent distress at this time. Patient and/or ph family updated on plan of care and expected duration. Pain level reassessed. Patient is alert, oriented x 3, equal unlabored respirations, skin warm/dry/pink. Pt requesting to remove Bi-pap, states that he is feeling claustrophobic but that his breathing is feeling better, mask removed and pt placed on NC at 4L, appears to be tolerating well w/ Spo2 100% and non-labored respirations. 08:38 Reassessment: Patient appears in no apparent distress at this time. Patient and/or ph family updated on plan of care and expected duration. Pain level reassessed. Patient is alert, oriented x 3, equal unlabored respirations, skin warm/dry/pink. Dr Russell at bedside to speak w/ pt, pt currently 98% RA. Vital Signs: 05:52 BP 156 / 49; Pulse 82; Resp 28; Temp 100.9(A); Pulse Ox 98% on 15% Non-rebreather mask; bb Weight 93.44 kg (R); Height 5 ft. 8 in. (172.72 cm) (R); Pain 0/10; 07:39 BP 108 / 53; Pulse 67; Resp 20; Pulse Ox 98% on 4 lpm NC; ph 08:39 BP 123 / 47; Pulse 70; Resp 18; Pulse Ox 97% on R/A; ph 05:52 Body Mass Index 31.32 (93.44 kg, 172.72 cm) bb ED Course: 05:42 Patient arrived in ED. cl3 05:47 Gerson Garcia, RN is Primary Nurse. mg2 05:51 Aneesh Lares MD is Attending Physician. mh7 05:54 Triage completed. bb 05:56 Arm band placed on Patient placed in an exam room, on a stretcher, on oxygen, on bb radiographer cardiac catheterization, on pulse oximetry, RT at bedside for placement of Bipap. EKG completed in triage. Results shown to MD. 06:04 No provider procedures requiring assistance completed. Inserted saline lock: 20 gauge mg2 in left forearm, using aseptic technique. Blood collected. by ASPEN Casanova. 06:05 Patient has correct armband on for positive identification. mg2 06:10 XRAY Chest (1 view) In Process Unspecified. EDMS 07:12 Lizandro Russell is Hospitalizing Provider. 7 Administered Medications: 06:25 Drug: Tylenol 650 mg Route: PO; mg2 06:43 Drug: Rocephin - (cefTRIAXone) 1 grams Route: IVPB; Infused Over: 30 mins; Site: left wh forearm; 06:45 Drug: AZITHromycin 500 mg Route: IVPB; Infused Over: 1 hrs; Site: left forearm; wh 08:22 Drug: Lasix 40 mg Route: IVP; Site: left forearm; Outcome: 07:13 Decision to Hospitalize by Provider. mh7 09:40 Patient left the ED. sv Signatures: Dispatcher [employer] EDMS Shauna Swift RN RN sv Ballard, Brenda, RN RN bb Leonor Chase RN RN Aman Merino RN RN Gerson Garcia RN RN [facility] Maranda Segovia cl3 Aneesh Lares MD MD [facility]
--- NOTE | 2020-12-18 07:31 | RAD REPORT ---
EXAM DESCRIPTION: Barbara Single View12/18/2020 6:10 am CLINICAL HISTORY: Shortness of breath COMPARISON: September 2020 FINDINGS: Right basilar consolidation. Mild additional bilateral interstitial lung opacities. Heart is moderately enlarged. Postsurgical shelly nges involve the chest IMPRESSION: Mild bilateral interstitial pulmonary opacities likely pulmonary edema Right basilar lung opacity may represent a superimposed pneumonia or atelectasis
[2020-12-18] MEDS ORDERED: FUROSEMIDE 40 MG/4 ML VIAL ONE (08:11)
[2020-12-18 08:23] LABS: SARS-COV-2 RT PCR NEGATIVE (NEGATIVE)
--- NOTE | 2020-12-18 09:00 | P.HP ---
Certification for Inpatient Patient admitted to: Observation With expected LOS: <2 Midnights Practitioner: I am a practitioner with admitting privileges, knowledge of patient current condition, hospital course, and medical plan of care. Services: Services provided to patient in accordance with Admission requirements found in Title 42 Section 412.3 of the Code of Federal Regulations Patient History Date of Service: 12/18/20 Reason for admission: Shortness of breath History of Present Illness: 75-year-old gentleman with a history of chronic atrial fibrillation, coronary artery disease, DM type 2 was brought to the emergency department due to sudden onset of shortness of breath, coughing and choking sensation. Patient states he tripped on his root beer around 2:00 a.m. today. The episode was followed by respiratory distress, choking, coughing. EMS was called for found him with oxygen saturation of 82%. Patient was placed on 100% non-rebreather mask and brought to the emergency department. Patient had low-grade fever with a temperature of 100.9 in the ED. His chest x-ray in the ED demonstrated vascular congestion and right basilar opacity. Patient was tolerating room air with oxygen saturation of 98% during my examination in the ED. His initial troponin is negative. EKG demonstrated a rate controlled atrial fibrillation with nonspecific ST changes. COVID 19 test is negative. Patient reports having received 2 doses of the COVID vaccine. He is diagnosed with acute CHF, there is also a concern for aspiration pneumonitis. He is placed under observation for further management. Allergies codeine Allergy (Verified 05/12/18 14:14) Itching Penicillins Allergy (Verified 05/12/18 14:14) Rash Home Medications: Amlodipine [Norvasc*] 10 mg PO DAILY 05/12/18 Atorvastatin Calcium [Lipitor] 40 mg PO BEDTIME 05/12/18 Metoprolol Succinate [Toprol Xl] 50 mg PO DAILY 05/12/18 lisinopriL [Lisinopril] 40 mg PO DAILY 05/12/18 Allopurinol 1 tab PO DAILY 10/10/20 Alpha Lipoic Acid 200 mg PO DAILY 10/10/20 Aspirin 1 tab PO DAILY 10/10/20 Cholecalciferol (Vitamin D3) [Vitamin D3] 5,000 unit PO DAILY 10/10/20 Cyanocobalamin (Vitamin B-12) [Vitamin B-12] 1,000 mcg PO DAILY 10/10/20 Cyanocobalamin (Vitamin B-12) [Vitamin B12] 1,000 mcg PO DAILY 10/10/20 Doxazosin Mesylate 1 tab PO BEDTIME 10/10/20 Gabapentin 300 mg PO BEDTIME 10/10/20 Glutha Dose 1 tab PO DAILY 10/10/20 L.acidoph,Paracasei, B.lactis [Probiotic] 1 cap PO DAILY 10/10/20 Mv-Mn/Iron/Folic Acid/Herb 190 [Vitamin D3 Complete Caplet] 5,000 units PO DAILY 10/10/20 Prevagen 1 tab PO DAILY 10/10/20 Ubidecarenone/Vit E Acet [Co Q-10 100 mg Softgel] 1 each PO DAILY 10/10/20 Vit C/E/Zn/Coppr/Lutein/Zeaxan [Preservision Areds 2 Softgel] 1 each PO BID 10/10/20 Furosemide [Lasix] 40 mg PO DAILY 30 Days #30 tab 10/13/20 Oseltamivir [Tamiflu*] 75 mg PO BID #6 cap 10/13/20 - Past Medical/Surgical History Diabetic: Yes -: Hypertension -: DM type 2 -: Chronic atrial fibrillation -: Coronary artery disease -: Benign Tremors -: CABG -: Rotator cuff surgery - Family History Sister -: Diabetes Father -: Lung disease Notes: emphysema - Social History Alcohol use: Yes CD- Drugs: No Caffeine use: Yes Review of Systems Other: Except as documented, all other systems reviewed and negative. Physical Examination - Physical Exam General: Alert, In no apparent distress, Oriented x3 HEENT: Atraumatic, Normocephalic, Mucous membr. moist/pink, EOMI, Sclerae nonicteric Neck: Supple, JVD not distended, No Thyromegaly Respiratory: Clear to auscultation bilaterally, Normal air movement Cardiovascular: Normal S1 S2, Edema (Bilateral lower extremities.), Irregular heart rate/rhythm Gastrointestinal: Normal bowel sounds, Soft and benign, Non-distended, No tenderness Musculoskeletal: No clubbing, No tenderness Integumentary: No rashes, No erythema Neurological: Normal speech, Normal strength at 5/5 x4 extr, Cranial nerves 3-12 intact - Studies Laboratory Data (last 24 hrs) 12/18/20 06:05: PT 13.4 H, INR 1.16 12/18/20 06:05: WBC 14.90 H, Hgb 10.7 L, Hct 32.8 L, Plt Count 247 12/18/20 06:05: Sodium 142, Potassium 4.3, BUN 28 H, Creatinine 1.43 H, Glucose 170 H, Magnesium 2.2, Total Bilirubin 1.1 H, AST 23, ALT 40, Alkaline Phosphatase 207 H Assessment and Plan - Problems (Diagnosis) (1) Congestive heart failure Current Visit: Yes Status: Acute (2) Aspiration pneumonitis Current Visit: Yes Status: Acute (3) Chronic atrial fibrillation Current Visit: No Status: Acute (4) Hypertension Current Visit: No Status: Acute - Plan Place patient under observation. Treat CHF exacerbation with IV Lasix Trend troponin Obtain echocardiogram. Start IV clindamycin and Rocephin to treat aspiration pneumonia. Repeat chest x-ray in a.m. follow blood cultures. Continue on metoprolol for afib. Continue home antihypertensives. - Advance Directives Does patient have a Living Will: No Does patient have a Durable POA for Healthcare: No
[2020-12-18 09:21] LABS: Anisocytosis 1+; Blood Morphology Comment NOTED (NOT SEEN); Ovalocytes 1+; Platelet Estimate ADEQ; White Blood Cell Scan OK (OK)
[2020-12-18] MEDS ORDERED: CEFTRIAXONE 1 GM/NS 50 ML 1 GM/50 ML BAG IV SCH (09:47)
[2020-12-18] MEDS ORDERED: ONDANSETRON 4 MG/2 ML VIAL IV PRN (09:47)
[2020-12-18] MEDS ORDERED: ACETAMINOPHEN 500 MG TAB PO PRN (09:47)
[2020-12-18] MEDS ORDERED: CLINDAMYCIN PHOSPHATE 600 MG in NA CHLORIDE 0.9% 50 ML IV SCH (09:47)
[2020-12-18] MEDS ORDERED: ALBUTEROL 2.5 MG/3 ML NEB SOL NEB PRN (09:47)
[2020-12-18 10:33] VITALS: BMI 31.3
[2020-12-18] MEDS: CEFTRIAXONE/SWI 1gm 1 GM/10 ML SYR IV SCH (11:46)
[2020-12-18] MEDS: CLINDAMYCIN 600MG/D5W 600 MG/50 ML BAG IV SCH ×2 (13:36→16:32)
[2020-12-18] MEDS: FUROSEMIDE 40 MG/4 ML VIAL IV SCH (17:08)
[2020-12-18] MEDS: HEPARIN 5000 UNIT/ML 1 ML VIAL SQ SCH (20:54)
[2020-12-19] MEDS: CLINDAMYCIN 600MG/D5W 600 MG/50 ML BAG IV SCH ×3 (00:25→17:09)
[2020-12-19 05:55] LABS: Absolute Lymphocytes (CBC) 1.3 K/uL (0.7-4.9); Basophils % 0.6 % (0-1.3); Lymphocytes % 11.7 % (15.3-44.8); MPV 8.7 fL (7.6-11.3); RBC Red Blood Cell Count 3.42 M/uL (4.33-5.43)
[2020-12-19 06:17] LABS: Phosphorus 3.9 mg/dL (2.5-4.9); Potassium 4.2 mmol/L (3.5-5.1)
--- NOTE | 2020-12-19 08:03 | RAD REPORT ---
EXAM DESCRIPTION: RAD - Chest Single View - 12/19/2020 4:32 am CLINICAL HISTORY: CHF / ?pneumonia COMPARISON: Portable December 18 TECHNIQUE: AP portable chest image was obtained 12/19/2020 4:32 am . FINDINGS: Heart size has decreased. Central vasculature has diminished in prominence. The CHF/ volum e overload component seen on the prior day study has improved. There remains right greater than left lung base opacification also improved. Trachea is midline. Sternotomy wires are in place. No measurab le pleural effusion and no pneumothorax. No acute bony abnormality seen. No acute aortic findings chani pected. IMPRESSION: Partial resolution of the bilateral lung base infiltrate pattern. Substantial reduction in the CHF/ volume overload component seen on the prior day study.
[2020-12-19] MEDS: FUROSEMIDE 40 MG/4 ML VIAL IV SCH ×2 (09:03→17:08)
[2020-12-19] MEDS: HEPARIN 5000 UNIT/ML 1 ML VIAL SQ SCH ×2 (09:04→21:05)
[2020-12-19] MEDS: CEFTRIAXONE/SWI 1gm 1 GM/10 ML SYR IV SCH (11:55)
--- NOTE | 2020-12-19 15:42 | P.PN ---
Subjective Date of Service: 12/19/20 Chief Complaint: Shortness of breath Subjective: Improving (breathing more comfortably, however still having slight increased work of breathing, dyspnea on exertion. lower extremity swelling) Review of Systems 10-point ROS is otherwise unremarkable Physical Examination - Vital Signs Temperature: 98.4 F Blood Pressure: 145/63 Pulse: 68 Respirations: 14 Pulse Ox (%): 94 - Studies Laboratory Data (last 24 hrs) 12/19/20 05:24: Sodium 141, Potassium 4.2, BUN 31 H, Creatinine 1.43 H, Glucose 131 H, Phosphorus 3.9, Magnesium 2.0, Triglycerides 85, Cholesterol 75, HDL Cholesterol 32 L, Cholesterol/HDL Ratio 2.34 12/19/20 05:24: WBC 10.90 D, Hgb 9.7 L, Hct 29.0 L, Plt Count 199 12/18/20 15:11: Troponin I 0.02 Assessment & Plan Physician Review Additional Text: Physical Exam: General: Alert, slight increased work of breathing HEENT: Sclerae nonicteric, normal conjunctiva Respiratory: slightly diminished at bases bilaterally Cardiovascular: Irregular heart rate/rhythm, 1+ b/l lower extremity edema to knees Gastrointestinal: soft, NTND Ext: no rash/erythema Problem List: acute on chronic Congestive heart failure, unknown type Aspiration pneumonia chronic CKD3 Chronic atrial fibrillation Hypertension improving, but still with dyspnea, slight increased work of breathing, continue IV diuresis echocardiogram to be done today continue abx for aspiration pneumonia - clinda & rocephin repeat CXR today with improvement blood cultures pending metoprolol not given, h/o afib, patient with bradycardia overnight / early this morning to 30s for brief moments, 4-5 second pause cardiology consulted, pt states he thinks this may have happened before renal function appears at baseline Dispo: anticipate dc home tomorrow pending further diuresis and bradycardia resolves. Time Spent Managing Pts Care (In Minutes): 40
[2020-12-19] MEDS ORDERED: ALBUTEROL 2.5 MG/3 ML NEB SOL NEB PRN (16:00)
--- NOTE | 2020-12-19 17:11 | EKG ---
Test Date: 2020-12-18 Test Time: 05:46:59 Furnishings Conservator: RAJI MEASUREMENT RESULTS: Intervals: Rate: 77 [place]: QRSD: 80 QT: 366 QTc: 414 [place]: P: [place]: QRS: -18 T: 120 INTERPRETIVE STATEMENTS: Atrial fibrillation Nonspecific ST and T wave abnormality Abnormal ECG Compared to ECG 10/10/2020 14:36:58 ST (T wave) deviation now present Electronically Signed On 12-19-20 17:06:34 [employer]ES [employer] MARK[employer] INTERN by Kaleb Bradley
[2020-12-19] MEDS ORDERED: DOXAZOSIN 2 MG TAB PO SCH (21:00)
[2020-12-19] MEDS ORDERED: ATORVASTATIN 40 MG TAB PO SCH (21:00)
[2020-12-19] MEDS ORDERED: GABAPENTIN 300 MG CAP PO SCH (21:00)
[2020-12-20] MEDS: CLINDAMYCIN 600MG/D5W 600 MG/50 ML BAG IV SCH ×2 (00:06→08:39)
[2020-12-20 06:11] LABS: Basophils % 1.1 % (0-1.3); Hematocrit 28.1 % (39.6-49.0); Lymphocytes % 16.4 % (15.3-44.8); MPV 8.4 fL (7.6-11.3); RBC Red Blood Cell Count 3.34 M/uL (4.33-5.43)
[2020-12-20 06:20] LABS: Magnesium 2.1 mg/dL (1.8-2.4)
[2020-12-20] MEDS: METOPROLOL XL 50 MG TAB PO SCH ×2 (08:38→09:00)
[2020-12-20] MEDS: HEPARIN 5000 UNIT/ML 1 ML VIAL SQ SCH (08:38)
[2020-12-20] MEDS: FUROSEMIDE 40 MG/4 ML VIAL IV SCH (08:38)
[2020-12-20] MEDS: CEFTRIAXONE/SWI 1gm 1 GM/10 ML SYR IV SCH (08:39)
[2020-12-20] MEDS ORDERED: AMLODIPINE 10 MG TAB PO SCH (09:00)
[2020-12-20] MEDS ORDERED: allopurinoL 300 MG TAB PO SCH (09:00)
[2020-12-20] MEDS ORDERED: ASPIRIN 81 MG CHEWABLE TABLET PO SCH (09:00)
[2020-12-20 09:31] VITALS: O2SAT 97
--- NOTE | 2020-12-20 09:51 | ECHO ---
HEIGHT: 5 ft 8 in WEIGHT: 195 lb 12.8 oz DATE OF STUDY: 12/19/[address]: gato koehler 2-DIMENSIONAL: YES M.MODE: YES DOPPLER: YES COLOR FLOW: YES TDS: NO PORTABLE: NO DEFINITY: NO BUBBLE STUDY: NO DIAGNOSIS: CONGESTIVE HEART FAILURE EXACERBATION CARDIAC HISTORY: CATHERIZATION: NO SURGERY: YES PROSTHETIC VALVE: NO PACEMAKER: NO MEASUREMENTS (cm) DIASTOLIC (NORMALS) SYSTOLIC (NORMALS) IVSd 1.2 (0.6-1.2) LA Diam 3.8 (1.9-4.0) LVEF 77% LVIDd 4.6 (3.5-5.7) LVIDs 2.5 (2.0-3.5) %FS 45% LVPWd 1.3 (0.6-1.2) Ao Diam 2.7 (2.0-3.7) 2 DIMENSIONAL ASSESSMENT: RIGHT ATRIUM: NORMAL LEFT ATRIUM: NORMAL RIGHT VENTRICLE: NORMAL LEFT VENTRICLE: NORMAL TRICUSPID VALVE: NORMAL MITRAL VALVE: NORMAL PULMONIC VALVE: NORMAL AORTIC VALVE: SCLEROSIS PERICARDIAL EFFUSION: NONE AORTIC ROOT: NORMAL LEFT VENTRICULAR WALL MOTION: NORMAL DOPPLER/COLOR FLOW: NORMAL COMMENTS: AORTIC SCLEROSIS WITH NO STENOSIS. NORMAL LEFT VENTRICULAR SIZE AND FUNCTION. NO WALL MOTION ABNORMALITY. TECHNOLOGIST: Chandana VENTURA
--- NOTE | 2020-12-20 10:01 | CON ---
Date of Consultation: 12/19/2020 Reason For Consultation: Congestive heart failure, atrial fibrillation, and bradycardia. History Of Present Illness: Mr. Swartz is a 75-year-old male. He is very well known to me from previou s office visit and admission. He has had a history of paroxysmal atrial fibrillation, underwent a ca rdioversion by me in April of 2018. He converted to sinus rhythm now. However, he is back into atria l fibrillation that is now chronic with a lower ventricular response. He also has a history of diabe len, hypertension, coronary artery disease and he is status post CABG. He came in with congestive he art failure that is already improved by the time I saw him. The patient has had PND, orthopnea, peda l edema. He denied any palpitation or syncope. Denied any chest pain. He denied any fever, chills, or cough. Past Medical History: As stated earlier. Allergies: HE IS ALLERGIC TO CODEINE AND LEVAQUIN. Review of Systems: Negative. Social History: Negative. Family History: Noncontributory. Medications: At home include Lasix, aspirin, Neurontin, metoprolol, allopurinol, , Lipitor and lisinopril. Physical Examination: Vital Signs: Stable. He had atrial fibrillation at a rate of 60. HEENT: Negative. Neck: Supple with no bruit, lymphadenopathy, JVD, or thyromegaly. Chest: Reveals some rales at both bases. Cardiac: Revealed atrial fibrillation. Abdomen: Benign. Extremities: Revealed only trace edema. Neurologic: He was nonfocal. Pulses were present distally bilaterally. Skin: Dry and intact. Diagnostic Data: EKG showed atrial fibrillation with a rate in 60. His chest x-ray was unremarkable . BNP was 1526. His creatinine was 1.43. His hemoglobin was 9.7. Impression And Plan: 1.Chronic atrial fibrillation, slow ventricular response. The patient definitely should be on antic oagulation. He should be on Xarelto or Eliquis. I think his metoprolol should be held. If his hear t rate increases, we will consider ablation or pacemaker down the road. There is an echocardiogram p ending. 2.Acute on chronic diastolic congestive heart failure. He is now on Lasix. He is already improving and diuresing well. 3.Palpable chronic obstructive pulmonary disease. He is on antibiotics and inhalers now. 4.Renal insufficiency. 5.Anemia. 6.Diabetes, well controlled. 7.Hypertension, well controlled. 8.Dyslipidemia, well controlled. 9.Coronary artery disease, status post coronary artery bypass grafting. Continue present regimen. Hold metoprolol, add an anticoagulant. Check the echocardiogram. I will continue to follow him. SHAYNA/TIFFANIE Voice ID: [id number] Report ID: [id number]
--- NOTE | 2020-12-20 11:39 | P.CNS ---
Date of Consult: 12/20/20 Reason for Consult: Aspiration pneumonia, bacteremia Chief Complaint: Shortness of breath History of Present Illness: The patient is an 85-year-old male with a past medical history of paroxysmal atrial fibrillation status post cardioversion, diabetes type 2, CAD status post CABG, congestive heart failure who presented to the ED on Saturday after some shortness of breath after having a sip soda and feeling a choking like sensation. EMS was dispatched and he was found to have an O2 saturation 82%. In the ER the patient was placed on 100% non-rebreather mask, and chest x-ray was ordered which showed vascular congestion consistent with congestive heart failure and right basal opacities. Due to the patient's clinical presentation and chest x-ray findings aspiration pneumonia is suspected. Blood cultures were ordered and both were positive for gram positive , awaiting species identification. Infectious disease has been consulted to monitor the patient's possible aspiration pneumonia as well as bacteremia. Repeat blood cultures have been ordered, patient is currently on clindamycin and ceftriaxone. Patient denies nausea, vomiting, diarrhea, shortness breath, chest pain, any acute complaints/pain. Patient states he is feeling well. Patient remains afebrile, leukocytosis resolved. 10 papoint ROS completed with pertinant postives and negatives listed above. Allergies codeine Allergy (Verified 05/12/18 14:14) Itching Penicillins Allergy (Verified 05/12/18 14:14) Rash Home Medications: Amlodipine [Norvasc*] 10 mg PO DAILY 05/12/18 Atorvastatin Calcium [Lipitor] 40 mg PO BEDTIME 05/12/18 Metoprolol Succinate [Toprol Xl] 50 mg PO DAILY 05/12/18 Allopurinol 1 tab PO DAILY 10/10/20 Aspirin 1 tab PO DAILY 10/10/20 Doxazosin Mesylate 1 tab PO BEDTIME 10/10/20 Gabapentin 300 mg PO BEDTIME 10/10/20 L.acidoph,Paracasei, B.lactis [Probiotic] 1 cap PO DAILY 10/10/20 Vit C/E/Zn/Coppr/Lutein/Zeaxan [Preservision Areds 2 Softgel] 1 each PO BID 10/10/20 Furosemide [Lasix] 40 mg PO DAILY 30 Days #30 tab 10/13/20 lisinopriL [Lisinopril] 40 mg PO DAILY 12/18/20 - Past Medical/Surgical History Diabetic: Yes -: Hypertension -: DM type 2 -: Chronic atrial fibrillation -: Coronary artery disease -: Benign Tremors -: CABG -: Rotator cuff surgery - Family History Sister Medical History: Diabetes Father Medical History: Lung disease Notes: emphysema - Social History Smoking Status: Unknown if ever smoked Alcohol use: No CD- Drugs: No Caffeine use: No Place of Residence: Home Review of Systems 10-point ROS is otherwise unremarkable Physical Examination Temp Pulse Resp BP Pulse Ox 98 F 63 18 149/54 H 98 12/20/20 08:00 12/20/20 08:00 12/20/20 08:00 12/20/20 08:00 12/20/20 08:00 General: Alert, In no apparent distress, Oriented x3 HEENT: Atraumatic, Normocephalic Neck: Supple, 2+ carotid pulse no bruit Respiratory: Clear to auscultation bilaterally, Normal air movement Cardiovascular: No edema, Irregular heart rate/rhythm (a fib) Capillary refill: <2 Seconds Gastrointestinal: Normal bowel sounds Musculoskeletal: No clubbing, No swelling, No contractures Integumentary: No rashes, No breakdown, No significant lesion Microbiology 12/18/20 06:40 Blood - Blood Aerobic Blood Culture - Preliminary 12/18/20 06:40 Blood - Blood Blood Culture Gram Stain - Preliminary 12/18/20 06:40 Blood - Blood Anaerobic Blood Culture - Preliminary No growth in 24 hours. 12/18/20 06:25 Blood - Blood Aerobic Blood Culture - Preliminary 12/18/20 06:25 Blood - Blood Blood Culture Gram Stain - Preliminary 12/18/20 06:25 Blood - Blood Anaerobic Blood Culture - Preliminary No growth in 24 hours. Conclusions/Impression: Assessment: 1. Aspiration pneumonia 2. Bacteremia 3. Diabetes type 2 4. Chronic atrial fibrillation 5. Renal insufficiency 6. Congestive heart failure 7. Anemia plan: 1. Will continue current antibiotics for 2 weeks to cover aspiration pneumonia. PO recommendations following discharge include: Levaquin and clindamycin for two weeks. 2. Blood cultures taken on 12/18 were both grew gram positive cocci- awaiting species identification. Repeat blood cultures have been ordered. -medical management per primary team -continue monitor CBC and BMP -continue to monitor for signs of infection Plan of care discussed with Dr. Breen Thank you for consultation
[2020-12-20 11:42] VITALS: BP 119/50; TEMP 97.8
--- NOTE | 2020-12-20 14:38 | P.DS ---
Admission Date: 12/18/20 Discharge Date: 12/20/20 Disposition: ROUTINE DISCHARGE Discharge Condition: GOOD Reason for Admission: Shortness of breath Consultations: ID - Dr. Breen Procedures: CXR (12/18): Mild bilateral interstitial pulmonary opacities likely pulmonary edema. Right basilar lung opacity may represent a superimposed pneumonia or atelectasis. CXR (12/19): Partial resolution of the bilateral lung base infiltrate pattern. Substantial reduction in the CHF/ volume overload component seen on the prior day study. TTE (12/19): Aortic sclerosis, no stenosis. Normal LV size and function (77%), no wall motion abnormality. Problem List: acute on chronic diastolic CHF Aspiration pneumonia chronic CKD3 Chronic atrial fibrillation Hypertension Brief History of Present Illness: 75-year-old gentleman with a history of chronic atrial fibrillation, coronary artery disease, DM type 2 was brought to the emergency department due to sudden onset of shortness of breath, coughing and choking sensation. Patient states he tripped on his root beer around 2:00 a.m. today. The episode was followed by respiratory distress, choking, coughing. EMS was called for found him with oxygen saturation of 82%. Patient was placed on 100% non-rebreather mask and brought to the emergency department. Patient had low-grade fever with a temperature of 100.9 in the ED. His chest x-ray in the ED demonstrated vascular congestion and right basilar opacity. Patient was tolerating room air with oxygen saturation of 98% during my examination in the ED. His initial troponin is negative. EKG demonstrated a rate controlled atrial fibrillation with nonspecific ST changes. COVID 19 test is negative. Patient reports having received 2 doses of the COVID vaccine. He is diagnosed with acute CHF, there is also a concern for aspiration pneumonitis. He is placed under observation for further management. Hospital Course: Patient was treated with IV diuresis and empiric antibiotics for aspiration pneumonia. Patient's breathing and hypoxia improved, his leukocytosis improved. Patient had blood cultures growing Gram positive cocci, infectious disease was consulted, however final culture grew CONS - suspected contaminant. ID recommended discharge on the clindamycin and Levaquin for 2 weeks. During his hospitalization he was noted to become bradycardic down to the 30s temporarily, with 4 second pause. Cardiology was consulted, his metoprolol was discontinued. Patient remained in AFib, he was discharged on anti coagulation. He is to follow up with his PCP in the next week, and cardiology in the next few weeks. Vital Signs/Physical Exam: Physical Exam: General: Alert, NAD, breathing comfortably HEENT: Sclerae nonicteric, normal conjunctiva Respiratory: Clear to auscultation bilaterally Cardiovascular: Irregular heart rate/rhythm, trace b/l lower extremity edema Gastrointestinal: soft, NTND Ext: no rash/erythema Temp Pulse Resp BP Pulse Ox 97.8 F 67 18 119/50 L 98 12/20/20 11:42 12/20/20 11:42 12/20/20 11:42 12/20/20 11:42 12/20/20 11:42 Laboratory Data at Discharge: WBC 6.00 K/uL (4.3-10.9) D 12/20/20 05:51 Hgb 9.4 g/dL (13.6-17.9) L 12/20/20 05:51 Hct 28.1 % (39.6-49.0) L 12/20/20 05:51 Plt Count 189 K/uL (152-406) 12/20/20 05:51 PT 13.4 SECONDS (9.5-12.5) H 12/18/20 06:05 INR 1.16 12/18/20 06:05 Sodium 141 mmol/L (136-145) 12/20/20 05:51 Potassium 4.0 mmol/L (3.5-5.1) 12/20/20 05:51 BUN 32 mg/dL (7-18) H 12/20/20 05:51 Creatinine 1.39 mg/dL (0.55-1.3) H 12/20/20 05:51 Glucose 119 mg/dL (74-106) H 12/20/20 05:51 Phosphorus 3.9 mg/dL (2.5-4.9) 12/19/20 05:24 Magnesium 2.1 mg/dL (1.8-2.4) 12/20/20 05:51 Total Bilirubin 1.1 mg/dL (0.2-1.0) H 12/18/20 06:05 AST 23 U/L (15-37) 12/18/20 06:05 ALT 40 U/L (12-78) 12/18/20 06:05 Alkaline Phosphatase 207 U/L (45-117) H 12/18/20 06:05 Troponin I 0.02 ng/mL (0.0-0.045) 12/18/20 15:11 Triglycerides 85 mg/dL (<150) 12/19/20 05:24 Cholesterol 75 mg/dL (<200) 12/19/20 05:24 HDL Cholesterol 32 mg/dL (40-60) L 12/19/20 05:24 Cholesterol/HDL Ratio 2.34 12/19/20 05:24 Home Medications: Amlodipine [Norvasc*] 10 mg PO DAILY 05/12/18 Atorvastatin Calcium [Lipitor] 40 mg PO BEDTIME 05/12/18 Allopurinol 1 tab PO DAILY 10/10/20 Aspirin 1 tab PO DAILY 10/10/20 Doxazosin Mesylate 1 tab PO BEDTIME 10/10/20 Gabapentin 300 mg PO BEDTIME 10/10/20 L.acidoph,Paracasei, B.lactis [Probiotic] 1 cap PO DAILY 10/10/20 Vit C/E/Zn/Coppr/Lutein/Zeaxan [Preservision Areds 2 Softgel] 1 each PO BID 10/10/20 Furosemide [Lasix*] 40 mg PO DAILY 30 Days #30 tab 10/13/20 lisinopriL [Lisinopril] 40 mg PO DAILY 12/18/20 Rivaroxaban [Xarelto] 20 mg PO DAILY 30 Days #30 tablet 12/20/20 clindamycin HCL [Clindamycin HCl] 600 mg PO Q8H 14 Days #84 capsule 12/20/20 levoFLOXacin [Levaquin] 750 mg PO DAILY 14 Days #14 tab 12/20/20 New Medications: clindamycin HCL [Clindamycin HCl] 600 mg PO Q8H 14 Days #84 capsule levoFLOXacin [Levaquin] 750 mg PO DAILY 14 Days #14 tab Rivaroxaban [Xarelto] 20 mg PO DAILY 30 Days #30 tablet Physician Discharge Instructions: You were found to have an acute CHF Exacerbation and aspiration pneumonia from your choking episode. You responded well to antibiotics. You are discharged with 2 weeks of 2 antibiotics. Your heart rate was noted to get very low, Cardiology was consulted and recommended stopping your metoprolol. It is also recommended you start on a blood thinner to reduce your risk of developing a blood clot that can go to your lungs/brain. Anne Mariequis and Xarelto are 2 types of blood thinners. Prescriptions were sent for both to see which would be more affordable. You are only to take one of these prescriptions, not both. Please follow up with your PCP in the next week, and follow up with Cardiology in 1-2 weeks. Diet: AHA Activity: Ad dotty Followup: Unknown,U [Primary Care Provider] - Time spent managing pt's care (in minutes): 45
[2020-12-20] MEDS ORDERED: CLINDAMYCIN INJ 600 MG in NA CHLORIDE 0.9% 50 ML IV SCH (17:00)
--- NOTE | 2020-12-26 12:28 | PN ---
Subjective: The patient was initially admitted by Dr. Irving and Dr. Russell on 12/19/2020. He was se en for congestive heart failure, atrial fibrillation, and bradycardia. The patient has had chronic a trial fibrillation with slow ventricular response. I recommended Xarelto or Eliquis. His metoprolol was held because of bradycardia. I think if his heart rate increases, we will consider ablation and a pacemaker. He also has acute on chronic diastolic congestive heart failure. He is improved much on Lasix. He has COPD. He is on antibiotics and inhalers. Renal insufficiency, anemia, diabetes, h ypertension, dyslipidemia, coronary artery disease status post CABG. Echocardiogram that was done on 12/19/2020 showed aortic sclerosis without any stenosis, normal left ventricular ejection fraction, normal ventricular size with an ejection fraction of 77%. On 12/20/2020, his blood pressure was 119/ 50. He was in AFib at a rate of 67. He was afebrile, 97% on room air. His last creatinine was 1.39 , which was improved. Last hemoglobin was 9.4. Again, he has chronic atrial fibrillation, low ventr icular response. We should take him off metoprolol. He should definitely be on anticoagulation with Xarelto or Eliquis. His other problems listed earlier are stable. He can go home whenever it is ok ay with Dr. Irving. I will see him in the office in the next week or 2. SHAYNA/TIFFANIE Voice ID: [id number] Report ID: [id number]
== END 2020-12-20 16:25 | disposition home or self-care (01) | DRG 177 ==
LOC: ER 05:41 → 2ND 09:30 → OBSVTOIN 12-19 13:34
PROVIDERS: ADMIT Internal Medicine; ATTEND Hospitalist
DX: J69.0 Pneumonitis due to inhalation of food and vomit (principal); I50.33 Acute on chronic diastolic (congestive) heart failure; I13.0 Hypertensive heart and chronic kidney disease with heart failure and stage 1 through stage 4 chronic kidney disease, or unspecified chronic kidney disease; I48.20 Chronic atrial fibrillation, unspecified; R78.81 Bacteremia; N18.30 Chronic kidney disease, stage 3 unspecified; E11.22 Type 2 diabetes mellitus with diabetic chronic kidney disease; J44.9 Chronic obstructive pulmonary disease, unspecified; N28.9 Disorder of kidney and ureter, unspecified; E78.5 Hyperlipidemia, unspecified; D64.9 Anemia, unspecified; I25.10 Atherosclerotic heart disease of native coronary artery without angina pectoris; Z88.5 Allergy status to narcotic agent; Z88.0 Allergy status to penicillin; Z79.82 Long term (current) use of aspirin; Z95.1 Presence of aortocoronary bypass graft; Z79.84 Long term (current) use of oral hypoglycemic drugs; Z79.899 Other long term (current) drug therapy; Z20.822 Contact with and (suspected) exposure to COVID-19
CPT/HCPCS: 0240U; 36415; 71045; 80048; 80061; 80076; 82947; 83735; 83880; 84100; 84145; 84484; 85025; 85610; 87040; 87205; 93005; 93306; 94760; 96374; 96375; 97161; 99291; G0378; J0456; J0696; J1644; J1940; J7050

== ENCOUNTER 2021-08-15 05:55 | Day surgery (SDC) | payer OTHER ==
--- NOTE | 2021-08-11 14:07 | RAD REPORT ---
EXAM DESCRIPTION: RAD - Chest Pa And Lat (2 Views) - 08/11/2021 2:02 pm CLINICAL HISTORY: Pre Op pending carotid angiogram Chest pain. COMPARISON: Chest Single View dated 12/19/2020; Chest Single View dated 12/18/2020; Chest Single View d ated 10/12/2020; Chest Single View dated 10/10/2020 FINDINGS: The lungs are clear. The heart is normal in size. No displaced fractures. Sternotomy wires noted. IMPRESSION: No acute or concerning finding suspected.
[2021-08-11 14:10] LABS: Absolute Lymphocytes (CBC) 1.2 K/uL (0.7-4.9); Basophils % 1.1 % (0-1.3); Hematocrit 38.3 % (39.6-49.0); Lymphocytes % 14.9 % (15.3-44.8); MPV 8.2 fL (7.6-11.3); RBC Red Blood Cell Count 4.34 M/uL (4.33-5.43)
[2021-08-11 14:16] LABS: Protime INR 1.32
[2021-08-11 14:29] LABS: Potassium 4.8 mmol/L (3.5-5.1)
[2021-08-15] MEDS ORDERED: HEPA 1000U/500MLS 1,000 UNIT/500 ML BAG IV ONE (07:34)
[2021-08-15] MEDS ORDERED: LIDOCAINE 1% 20 ML MDV ONE (07:34)
[2021-08-15] MEDS ORDERED: NA CHLORIDE 0.9% 500 ML ONE (07:42)
[2021-08-15] MEDS ORDERED: FENTANYL CITR 100 MCG/2 ML ONE (08:14)
[2021-08-15] MEDS ORDERED: MIDAZOLAM HCL 2 MG/2 ML INJ ONE (08:14)
[2021-08-15] MEDS ORDERED: ATROPINE SULF 1 MG/10 ML SYR IV ONE (08:14)
[2021-08-15 08:42] VITALS: TEMP 97.8
[2021-08-15 10:01] VITALS: BP 98/57; O2SAT 97
--- NOTE | 2021-08-15 15:55 | OP ---
Surgeon: Kaleb Bradley MD Hand Presser: Mr. Shelley. Procedure Performed: Mr. Swartz is 76. He was admitted to the field laborer today as an outpatient for bila teral selective carotid angiogram. Indication: Cerebrovascular disease that has worsened by Doppler. Procedure In Detail: In the field laborer, he was prepped and draped in routine sterile manner. Given Ve rsed and fentanyl for sedation. A 6-Portuguese sheath introduced in the right common femoral artery succ essfully. Angio-Seal was used to close the case. Angiography there was normal. A JR4 catheter was used to cannulate the right common carotid first and then the left common carotid second. Angiograph y there revealed normal common carotid artery bilaterally, normal external carotid artery, and ostial 50%-60% bilateral ICAs. The patient tolerated the procedure well. There were no complications. Blood Loss: 5 mL. Anesthesia: Total conscious sedation was 30 minutes. Final Diagnosis: Moderate cerebrovascular disease. Plan: To continue medical therapy. Followup carotid Doppler once a year. The patient will remain i n the hospital for 2 hours of bedrest and then go home. SHAYNA/TIFFANIE Voice ID: [id number] Report ID: [id number]
== END 2021-08-15 10:15 | disposition home or self-care (01) ==
LOC: CCL 05:55
DX: I65.23 Occlusion and stenosis of bilateral carotid arteries (principal); I25.10 Atherosclerotic heart disease of native coronary artery without angina pectoris; I48.91 Unspecified atrial fibrillation; I10 Essential (primary) hypertension; Z79.01 Long term (current) use of anticoagulants; Z88.0 Allergy status to penicillin; Z88.6 Allergy status to analgesic agent; Z20.822 Contact with and (suspected) exposure to COVID-19
CPT/HCPCS: 93005; 85025; 80048; 36415; 85610; 82947; 85730; 71046; 36222; U0003; C1893; C1760; J2250; J3010; J7040; J1644

== ENCOUNTER 2022-04-03 05:35 | Inpatient (IN) | payer OTHER ==
--- OUTSIDE RECORDS SUMMARY | 2022-04-03 05:38 | XMS REPORT | Continuity of Care Document ---
:[address] [facility] t Address [address] [place] [address] Dr. Guadarrama [address] [place] [id number] Care Team Providers Name Role Phone [phone] Primary Care Physician Unavailable PEREZ Attending Clinician Unavailable CORBY Attending Clinician Unavailable CHAVA HERNANDEZ Attending Clinician Unavailable Breanne RIVERA Attending Clinician Unavailable Payers Payer Name Policy Type Policy Number Effective Date Expiration Date S sugar [employer] MED[employer]ARE PPO [id number] 00:00:00 Problems This patient has no known problems. Allergies, Adverse Reactions, Alerts This patient has no known allergies or adverse reactions. Medications This patient has no known medications. Procedures This patient has no known procedures. Encounters Start End Encounter Admission Attending Care Care Encounter Source Date/Time Date/Time Type Type Clinicians Facility Department ID 2021-08-03 2021-08-03 Outpatient ESME RILEYNELSON NATHANAEL HUFFMAN [id number] 11:01:39 23:59:00 JONNY grider 2021-08-03 2021-08-03 Outpatient ESME TODD NATHANAEL HUFFMAN [id number] 13:29:14 13:29:14 JONNY grider 2021-08-03 2021-08-03 Outpatient ESME TAVAREZ NATHANAEL MDA [id number] 12:46:21 13:24:31 EH grider 2021-08-03 2021-08-03 Outpatient ESME RILEYNELSON NATHANAEL HUFFMAN [id number] 11:00:35 11:00:35 JONNY grider 2021-08-03 2021-08-03 Outpatient ESME RILEYNELSON NATHANAEL HUFFMAN [id number] 09:18:41 09:18:41 JONNY grider 2020-08-03 2020-08-04 Outpatient ESME HERNANDEZ NATHANAEL MDA [id number] 07:25:55 06:29:04 SHAWNEE grider 2020-08-02 2020-08-02 Outpatient [facility] MDA MDA [id number] 12:09:49 23:59:00 Augusto grider 2020-08-02 2020-08-02 Outpatient [facility] MDA [id number] 09:30:00 12:08:00 Augusto grider 2020-08-02 2020-08-02 Outpatient [facility] MDA MDA [id number] 09:59:38 09:59:38 Augusto grider 2020-08-02 2020-08-02 Outpatient [facility] MDA MDA [id number] 00:00:00 00:00:00 Augusto grider Results This patient has no known results.
[2022-04-03 06:23] LABS: Absolute Lymphocytes (CBC) 0.5 K/uL (0.7-4.9); Hematocrit 34.8 % (39.6-49.0); Lymphocytes % 2.9 % (15.3-44.8); MCV 77.8 fL (80-100); MPV 7.9 fL (7.6-11.3); RBC Red Blood Cell Count 4.48 M/uL (4.33-5.43)
[2022-04-03 06:27] LABS: Protime INR 2.06
[2022-04-03] MEDS ORDERED: CEFTRIAXONE 1000 MG/VIAL ONE ×2 (06:28→08:53)
[2022-04-03] MEDS ORDERED: NA CHLORIDE 0.9% 50 ML ONE (06:28)
[2022-04-03 06:41] LABS: Urine Blood Negative (Negative); Urine Glucose 2+ (Negative); Urine Protein 3+ (Negative); Urine Specific Gravity 1.015 (1.005-1.030); Urine pH 5.5 (5.0-7.0)
[2022-04-03 06:44] LABS: Albumin 3.7 g/dL (3.4-5.0); Bilirubin Direct 0.2 mg/dL (0-0.2); Bilirubin Total 0.8 mg/dL (0.2-1.0); Magnesium 2.3 mg/dL (1.8-2.4); Potassium 4.8 mmol/L (3.5-5.1); Protein, Total 6.5 g/dL (6.4-8.2)
[2022-04-03 06:51] LABS: Troponin High Sensitivity 367.2 pg/mL (<58.9)
[2022-04-03 06:59] LABS: Blood Morphology Comment NOT SEEN (NOT SEEN); Platelet Estimate ADEQ
--- NOTE | 2022-04-03 07:42 | ER ---
Nurse's Notes [facility] Name: Spenser Swartz Jr Age: 77 yrs Sex: Male : 1945 Arrival Date: 04/03/2022 Time: 05:41 Bed 4 Private MD: Diagnosis: Fever, unspecified;Weakness;Chronic atrial fibrillation;longterm (current) use of anticoagulants;Sepsis, unspecified organism;Acute kidney failure, unspecified-on chronic;Elevated white blood cell count;Non ST elevation NV Presentation: 04/03 05:41 Chief complaint: Patient states: "I just don't feel good overall" pt took 1300mg as6 Tylenol [facility] states: called out for fever. Coronavirus screen: Client presents with at least one sign or symptom that may indicate coronavirus-19. Provider contacted for isolation considerations. Ebola Screen: No symptoms or risks identified at this time. Initial Sepsis Screen: Does the patient meet any 2 criteria? RR > 20 per min. Does the patient have a suspected source of infection? Yes: Productive cough/pneumonia. Risk Assessment: Do you want to hurt yourself or someone else? Patient reports no desire to harm self or others. Onset of symptoms was April 03, 2022. 05:41 Method Of Arrival: EMS: [facility] as6 05:41 Acuity: AMA 3 as6 Historical: - Allergies: 05:44 Codeine; as6 05:44 PENICILLINS; as6 - PMHx: 05:44 Atrial Fib; Diabetes - NIDDM; Hypertension; Parkinson's disease; as6 - Immunization history:: Client reports receiving the 2nd dose of the Covid vaccine, pfizer. - Social history:: Smoking status: Patient denies any tobacco usage or history of. - Family history:: not pertinent. Screenin:56 Abuse screen: Denies threats or abuse. Denies injuries from another. Nutritional as6 screening: No deficits noted. Tuberculosis screening: No symptoms or risk factors identified. Fall Risk None identified. Assessment: 05:53 Reassessment: pt had a short run of v-tach. General: Appears ill, Behavior is calm, as6 cooperative, Reports chills for fever for feeling ill for fatigue for. Pain: Denies pain. Neuro: Miles Agitation-Sedation Scale (RASS): 0 - Alert and Calm Level of Consciousness is awake, alert, obeys commands, Oriented to person, place, time, situation. Cardiovascular: Denies chest pain, shortness of breath. Respiratory: Reports cough that is Respiratory effort is even, unlabored, Respiratory pattern is regular, symmetrical. Derm: Skin temperature is hot. 06:56 Reassessment: Patient appears in no apparent distress at this time. as6 07:00 Reassessment: RECD REPORT FROM DAVE FREEMAN. 77YO WM P/W MALAISE AND FEVER, CT PENDING. bp 08:00 Reassessment: No changes from previously documented assessment. Patient and/or family bp updated on plan of care and expected duration. Pain level reassessed. PT RETURNED FROM CT. ADMIT INITIATED. Vital Signs: 05:41 BP 159 / 57; Pulse 79; Resp 31; Temp 100.4; Pulse Ox 95% ; Weight 95.25 kg (R); Height as6 5 ft. 8 in. (172.72 cm) (R); Pain 0/10; 06:56 BP 126 / 83; Pulse 78; Resp 24 S; Pulse Ox 94% on R/A; as6 08:00 BP 108 / 38; Pulse 67; Resp 24; Temp 98.8; Pulse Ox 96% ; bp 05:41 Body Mass Index 31.93 (95.25 kg, 172.72 cm) as6 ED Course: 05:41 Patient arrived in ED. as6 05:44 Triage completed. as6 05:46 Dave Gamboa, RN is Primary Nurse. as6 05:46 Arm band placed on. as6 05:48 Jamil Ceja MD is Attending Physician. shelly 05:56 Bed in low position. Call light in reach. Side rails up X2. Client placed on continuous as6 cardiac and pulse oximetry monitoring. NIBP monitoring applied. 06:16 Inserted saline lock: 18 gauge in right forearm, using aseptic technique. Blood as6 collected. 06:29 XRAY Chest (1 view) In Process Unspecified. EDMS 07:39 Yovani Schmid MD is Hospitalizing Provider. shelly 07:47 CT Chest Abdomen Pelvis W/O Contrast In Process Unspecified. EDMS 20:30 No provider procedures requiring assistance completed. Patient admitted, IV remains in as6 place. Administered Medications: 06:29 Drug: Rocephin (cefTRIAXone) 1 grams Route: IV; Rate: per protocol; Site: right forearm;as6 20:09 Follow up: Response: No adverse reaction; IV Status: Completed infusion; IV Intake: [id number] 06:30 Drug: NS 0.9% 1000 ml Route: IV; Rate: 1 bolus; Site: right forearm; bp 20:07 Follow up: Response: No adverse reaction; IV Status: Completed infusion; IV Intake: 62cmdi6 07:45 Drug: NS 0.9% 1000 ml Route: IV; Rate: 125 ml/hr; Site: right forearm; bp 20:07 Follow up: IV Status: Infusion continued upon admission as6 07:45 Drug: NS 0.9% 1000 ml Route: IV; Rate: 1 bolus; Site: right forearm; bp 20:09 Follow up: Response: No adverse reaction; IV Status: Completed infusion; IV Intake: as6 1000ml 07:45 Drug: Zithromax (azithromycin) 500 mg Route: IVPB; Infused Over: 1 hrs; Site: right bp forearm; 20:10 Follow up: Response: No adverse reaction; IV Status: Completed infusion; IV Intake: as6 250ml 07:45 Drug: Tylenol 650 mg Route: PO; bp 08:28 Follow up: Response: No adverse reaction bp 08:40 Drug: Rocephin (cefTRIAXone) 1 grams Route: IV; Rate: per protocol; Site: right forearm;bp 20:09 Follow up: Response: No adverse reaction; IV Status: Completed infusion; IV Intake: [id number] Medication: 20:31 VIS not applicable for this client. as6 Intake: 20:07 IV: 50ml; Total: 50ml. as6 20:09 IV: 50ml; Total: 100ml. as6 20:09 IV: 1000ml; Total: 1100ml. as6 20:09 IV: 50ml; Total: 1150ml. as6 20:10 IV: 250ml; Total: 1400ml. as6 Outcome: 07:41 Decision to Hospitalize by Provider. shelly 20:30 Admitted to ICU accompanied by porfirio, via stretcher, room 7, with chart, Report called as6 to Rocio FREEMAN 20:30 Condition: stable 20:30 Instructed on the need for admit. 21:09 Patient left the ED. sm5 Signatures: Dispatcher [employer] EDJamil Duckworth MD MD cha Peltier, Brian RN RN bp Dave Gamboa, RN RN as6 Mariam Ha, RN RN sm5
--- NOTE | 2022-04-03 07:42 | EDPHYS ---
Physician Documentation [facility] Name: Spenser Swartz Jr Age: 77 yrs Sex: Male : 1945 Arrival Date: 04/03/2022 Time: 05:41 Bed 4 Private MD: ED Physician Jamil Ceja HPI: 04/03 07:30 This 77 yrs old Male presents to ER via EMS with complaints of Fever. shelly 07:30 The patient reports fever, that was measured at 101 degrees Fahrenheit, with a pattern shelly that is constant, higher at night. Onset: The symptoms/episode began/occurred 1 day(s) ago. Modifying factors: there are no obvious modifying factors. Associated signs and symptoms: Pertinent positives: arthralgias, backache, chills, decreased appetite, headache, myalgias, nausea, runny nose. Severity of symptoms: At their worst the symptoms were mild moderate in the emergency department the symptoms have improved mildly. The patient has not experienced similar symptoms in the past. 07:34 The patient or guardian reports cough, that is intermittent, flu symptoms, arthralgias, shelly low-grade fever, myalgias. Modifying factors: The symptoms are alleviated by nothing. the symptoms are aggravated by activity. Associated signs and symptoms: Pertinent positives: fever, rhinorrhea. Historical: - Allergies: 05:44 Codeine; as6 05:44 PENICILLINS; as6 - PMHx: 05:44 Atrial Fib; Diabetes - NIDDM; Hypertension; Parkinson's disease; as6 - Immunization history:: Client reports receiving the 2nd dose of the Covid vaccine, pfizer. - Social history:: Smoking status: Patient denies any tobacco usage or history of. - Family history:: not pertinent. ROS: 07:34 Eyes: Negative for injury, pain, redness, and discharge, ENT: Negative for injury, shelly pain, and discharge, Neck: Negative for injury, pain, and swelling, Cardiovascular: Negative for chest pain, palpitations, and edema, Respiratory: Negative for shortness of breath, cough, wheezing, and pleuritic chest pain, Abdomen/GI: Negative for abdominal pain, nausea, vomiting, diarrhea, and constipation, Back: Negative for injury and pain, : Negative for injury, bleeding, discharge, and swelling, MS/Extremity: Negative for injury and deformity, Skin: Negative for injury, rash, and discoloration, Neuro: Negative for headache, weakness, numbness, tingling, and seizure, Psych: Negative for depression, anxiety, suicide ideation, homicidal ideation, and hallucinations, Allergy/Immunology: Negative for hives, rash, and allergies, Endocrine: Negative for neck swelling, polydipsia, polyuria, polyphagia, and marked weight changes, Hematologic/Lymphatic: Negative for swollen nodes, abnormal bleeding, and unusual bruising. 07:34 Constitutional: Positive for body aches, chills, fatigue, fever, malaise. Exam: 07:34 Head/Face: Normocephalic, atraumatic. Eyes: Pupils equal round and reactive to light, shelly extra-ocular motions intact. Lids and lashes normal. Conjunctiva and sclera are non-icteric and not injected. Cornea within normal limits. Periorbital areas with no swelling, redness, or edema. ENT: Nares patent. No nasal discharge, no septal abnormalities noted. Tympanic membranes are normal and external auditory canals are clear. Oropharynx with no redness, swelling, or masses, exudates, or evidence of obstruction, uvula midline. Mucous membranes moist. Chest/axilla: Normal chest wall appearance and motion. Nontender with no deformity. No lesions are appreciated. Respiratory: Lungs have equal breath sounds bilaterally, clear to auscultation and percussion. No rales, rhonchi or wheezes noted. No increased work of breathing, no retractions or nasal flaring. Abdomen/GI: Soft, non-tender, with normal bowel sounds. No distension or tympany. No guarding or rebound. No evidence of tenderness throughout. Back: No spinal tenderness. No costovertebral tenderness. Full range of motion. Male : Normal genitalia with no discharge or lesions. Skin: Warm, dry with normal turgor. Normal color with no rashes, no lesions, and no evidence of cellulitis. 07:34 Constitutional: The patient appears non-diaphoretic, febrile. 07:34 ECG was reviewed by the Attending Physician. Vital Signs: 05:41 BP 159 / 57; Pulse 79; Resp 31; Temp 100.4; Pulse Ox 95% ; Weight 95.25 kg (R); Height as6 5 ft. 8 in. (172.72 cm) (R); Pain 0/10; 06:56 BP 126 / 83; Pulse 78; Resp 24 S; Pulse Ox 94% on R/A; as6 08:00 BP 108 / 38; Pulse 67; Resp 24; Temp 98.8; Pulse Ox 96% ; bp 05:41 Body Mass Index 31.93 (95.25 kg, 172.72 cm) as6 MDM: 05:48 Patient medically screened. shelly 07:37 Antibiotic administration: Rocephin and Zithromax given. Differential diagnosis: shelly bronchitis, flu, URI, viral Infection, bacterial infection, URI, bronchitis, pneumonia UTI, gastroenteritis, meningitis. Data reviewed: vital signs, nurses notes, lab test result(s), EKG, radiologic studies, CT scan, plain films. Data interpreted: manager monitoring: rate is 78 beats/min, rhythm is atrial fibrillation, Pulse oximetry: on room air is 94 %. Test interpretation: by ED physician or midlevel provider: ECG, plain radiologic studies. Counseling: I had a detailed discussion with the patient and/or guardian regarding: the historical points, exam findings, and any diagnostic results supporting the discharge/admit diagnosis, the presence of at least one elevated blood pressure reading (>120/80) during this emergency department visit, lab results, radiology results, the need for further work-up and treatment in the hospital. 04/03 06:01 Order name: Basic Metabolic Panel; Complete Time: 07:04/03 06:01 Order name: CBC with Diff; Complete Time: 07:04/03 06:01 Order name: LFT's; Complete Time: 07:04/03 06:01 Order name: Magnesium; Complete Time: 07:04/03 06:01 Order name: NT PRO-BNP; Complete Time: 07:04/03 06:01 Order name: PT-INR; Complete Time: 07:04/03 06:01 Order name: Troponin HS; Complete Time: 07:13 04/03 06:01 Order name: Lipase; Complete Time: 07:13 04/03 06:01 Order name: Lactate; Complete Time: 07:13 04/03 06:01 Order name: Procalcitonin; Complete Time: 07:04/03 06:02 Order name: Flu; Complete Time: 07:04/03 06:02 Order name: SARS-COV-2 RT PCR (Document "Date of Onset" if Symptomatic); Complete Time: [facility] 19:57 04/03 06:06 Order name: Blood Culture Adult (2) [facility] 04/03 06:17 Order name: Glucose, Ancillary Testing; Complete Time: 07:13 [facility]SD 04/03 06:01 Order name: XRAY Chest (1 view); Complete Time: 19:57 [facility] 04/03 06:41 Order name: Urine Dipstick-Ancillary; Complete Time: 07:13 [facility]SD 04/03 06:59 Order name: Manual Differential; Complete Time: 07:13 [facility]SD 04/03 07:28 Order name: Urine Culture [facility] 04/03 07:30 Order name: CT Chest Abdomen Pelvis W/O Contrast; Complete Time: 19:57 [facility] 04/03 11:08 Order name: CBC with Automated Diff [facility]SD 04/03 11:08 Order name: CBC with Automated Diff [facility]SD 04/03 11:08 Order name: Comprehensive Metabolic Panel [facility] 04/03 11:08 Order name: Comprehensive Metabolic Panel [facility] 04/03 11:08 Order name: Protime (+INR) [facility] 04/03 11:08 Order name: Protime (+INR) [facility] 04/03 11:08 Order name: PTT, Activated Partial Thromb [facility]SD 04/03 11:08 Order name: PTT, Activated Partial Thromb [facility]SD 04/03 11:36 Order name: Lactate Sepsis 2 HR Follow-up; Complete Time: 19:57 [facility] 04/03 15:24 Order name: US; Complete Time: 19:57 [facility] 04/03 06:01 Order name: EKG; Complete Time: 06:02 [facility] 04/03 06:01 Order name: Cardiac monitoring; Complete Time: 06:17 [facility] 04/03 06:01 Order name: EKG - Nurse/Tech; Complete Time: 06:17 [facility] 04/03 06:01 Order name: IV Saline Lock; Complete Time: 06:17 [facility] 04/03 06:01 Order name: Labs collected and sent; Complete Time: 06:17 [facility] 04/03 06:01 Order name: O2 Per Protocol; Complete Time: 06:17 [facility] 04/03 06:01 Order name: O2 Sat Monitoring; Complete Time: 06:17 [facility] 04/03 06:01 Order name: Urine Dipstick-Ancillary (obtain specimen); Complete Time: 06:56 shelly 04/03 11:08 Order name: CONS Physician Consult EDMS 04/03 11:08 Order name: Heart Healthy EDMS EC:34 Rate is 77 beats/min. Rhythm is irregularly irregular. QRS [place] is Normal. IA interval shelly is normal. QRS interval is normal. QT interval is normal. No Q waves. T waves are Normal. No ST changes noted. Clinical impression: Atrial Fibrillation. Interpreted by me. Reviewed by me. Administered Medications: 06:29 Drug: Rocephin (cefTRIAXone) 1 grams Route: IV; Rate: per protocol; Site: right forearm;as6 20:09 Follow up: Response: No adverse reaction; IV Status: Completed infusion; IV Intake: [id number] 06:30 Drug: NS 0.9% 1000 ml Route: IV; Rate: 1 bolus; Site: right forearm; bp 20:07 Follow up: Response: No adverse reaction; IV Status: Completed infusion; IV Intake: [id number] 07:45 Drug: NS 0.9% 1000 ml Route: IV; Rate: 125 ml/hr; Site: right forearm; bp 20:07 Follow up: IV Status: Infusion continued upon admission as6 07:45 Drug: NS 0.9% 1000 ml Route: IV; Rate: 1 bolus; Site: right forearm; bp 20:09 Follow up: Response: No adverse reaction; IV Status: Completed infusion; IV Intake: as6 1000ml 07:45 Drug: Zithromax (azithromycin) 500 mg Route: IVPB; Infused Over: 1 hrs; Site: right bp forearm; 20:10 Follow up: Response: No adverse reaction; IV Status: Completed infusion; IV Intake: as6 250ml 07:45 Drug: Tylenol 650 mg Route: PO; bp 08:28 Follow up: Response: No adverse reaction bp 08:40 Drug: Rocephin (cefTRIAXone) 1 grams Route: IV; Rate: per protocol; Site: right forearm;bp 20:09 Follow up: Response: No adverse reaction; IV Status: Completed infusion; IV Intake: [id number] Disposition Summary: 04/03/22 07:41 Hospitalization Ordered Hospitalization Status: Inpatient Admission shelly Provider: Yovani Schmid cha Condition: Stable shelly Problem: new shelly Symptoms: have improved shelly Bed/Room Type: Standard shelly Location: Intensive Care Unit(04/03/22 18:41) bd Room Assignment: 7-(04/03/22 18:41) bd Diagnosis - Fever, unspecified shelly - Weakness shelly - Chronic atrial fibrillation shelly - medical technologist blood bank (current) use of anticoagulants shelly - Sepsis, unspecified organism shelly - Acute kidney failure, unspecified - on chronic shelly - Elevated white blood cell count shelly - Non ST elevation NE shelly Discharge Instructions: - Discharge Summary Sheet ph Forms: - Medication Reconciliation Form shelly - SBAR form ph Signatures: Dispatcher [employer] Angie Calderon Corey, MD MD cha Peltier, Brian, RN RN bp Dave Gamboa RN RN as6 Corrections: (The following items were deleted from the chart) 12:24 07:41 Telemetry/MedSurg (Inpatient) shelly bp 12:24 07:41 shelly bp 18:41 12:24 [facility] ER HOLD bp bd 18:41 12:24 ERHOLD- bp bd
[2022-04-03] MEDS ORDERED: ACETAMINOPHEN 325 MG TABLET ONE (07:56)
[2022-04-03] MEDS ORDERED: AZITHROMYCIN 500 MG INJ IVPB ONE (07:56)
[2022-04-03] MEDS ORDERED: NA CHLORIDE 0.9% 250 ML ONE (07:56)
[2022-04-03] MEDS ORDERED: NA CHLORIDE 0.9% 1,000 ML ONE ×3 (07:56→10:10)
--- NOTE | 2022-04-03 08:12 | RAD REPORT ---
EXAM DESCRIPTION: CT - Chest Abd Pelvis Wo Con - 04/03/2022 7:45 am CLINICAL HISTORY: Chest and abdomen pain. fever and renal failure COMPARISON: No comparisons TECHNIQUE: A limited noncontrast study was performed. All CT scans are performed using dose optimization technique as appropriate and may include automated exposure control or mA/KV adjustment according to patient size. FINDINGS: Mild patchy opacities are seen in both posterior lung bases, nonspecific.Changes of prior CABG are noted.No pleural or pericardial effusion.No intrathoracic adenopathy. The liver, spleen, pancreas, adrenal glands and kidneys are within normal limits. No bowel obstruction, free air, free fluid or abscess. Normal appendix. Moderate stool retained throu ghout the colon. Diverticulosis coli. No pathologic lymphadenopathy in the abdomen or pelvis. Small f at containing umbilical hernia. Thoracic degenerative changes are present. IMPRESSION: Small patchy opacities in both posterior lung bases likely representing pneumonia.
--- NOTE | 2022-04-03 08:17 | RAD REPORT ---
EXAM DESCRIPTION: RAD - Chest Single View - 04/03/2022 6:27 am CLINICAL HISTORY: COUGH Chest pain. COMPARISON: Chest Pa And Lat (2 Views) dated 08/11/2021; Chest Single View dated 12/19/2020; Chest Sin gle View dated 12/18/2020; Chest Single View dated 10/12/2020 FINDINGS: Portable technique limits examination quality. Mild interstitial pulmonary edema. The heart is enlarged with changes of a prior CABG noted. No displ aced fractures. IMPRESSION: Mild CHF.
[2022-04-03] MEDS ORDERED: MORPHINE 2 MG/ML SYR IV PRN (11:01)
[2022-04-03] MEDS ORDERED: ACETAMINOPHEN 500 MG TAB PO PRN (11:01)
[2022-04-03] MEDS ORDERED: ONDANSETRON 4 MG/2 ML VIAL IV PRN (11:01)
--- NOTE | 2022-04-03 11:06 | EKG ---
Test Date: 2022-04-03 Test Time: 06:00:55 Service Restorer Emergency: RAJI MEASUREMENT RESULTS: Intervals: Rate: 77 VA: QRSD: 88 QT: 432 QTc: 488 [place]: P: VA: QRS: -45 T: 85 INTERPRETIVE STATEMENTS: Atrial fibrillation with a competing junctional pacemaker Left anterior fascicular block Prolonged QT Abnormal ECG Compared to ECG 08/11/2021 12:25:11 Left anterior fascicular block now present Prolonged QT interval now present Electronically Signed On 04-03-22 11:04:46 CDT by Kaleb Bradley
[2022-04-03] MEDS: NA CHLORIDE 0.9% 1,000 ML IV SCH (12:00)
[2022-04-03] MEDS ORDERED: NA CHLORIDE 0.9% 500 ML IV ONE (12:10)
[2022-04-03] MEDS ORDERED: VANCOMYCIN 1 GM in NA CHLORIDE 0.9% 250 ML IVPB SCH (12:28)
[2022-04-03] MEDS ORDERED: HYDROCORTISONE SUC 100 MG INJ IV ONE (12:29)
[2022-04-03] MEDS ORDERED: NA CHLORIDE 0.9% 500 ML ONE (12:53)
[2022-04-03] MEDS ORDERED: HYDROCORTISONE SUC 100 MG INJ ONE (12:53)
[2022-04-03] MEDS ORDERED: VANCOMYCIN 1.75 GM in NA CHLORIDE 0.9% 500 ML IVPB SCH (13:00)
[2022-04-03] MEDS ORDERED: Levofloxacin500mg IV 500 MG/100 ML BAG IV SCH (15:00)
--- NOTE | 2022-04-03 15:23 | RAD REPORT ---
EXAM DESCRIPTION: US - Renal Ultrasound-Complete - 04/03/2022 1:43 pm CLINICAL HISTORY: Acute renal failure COMPARISON: January 2022 FINDINGS: The right kidney measures 11 cm with an increased echotexture. 1.8 centimeters cyst The left kidney measures 11 cm with an increased echotexture. Hydronephrosis is not seen. No gross abnormality of bladder is noted. Prostate gland is enlarged IMPRESSION: Increased renal echotexture consistent with parenchymal disease
[2022-04-03] MEDS ORDERED: Levofloxacin500mg IV 500 MG/100 ML BAG IV ONE (17:04)
[2022-04-03] MEDS ORDERED: CEFTRIAXONE 1,000 MG in NA CHLORIDE 0.9% 50 ML IVPB SCH (21:00)
[2022-04-03 22:23] VITALS: BMI 33.0
[2022-04-03] MEDS: HYDROCORTISONE SUC 100 MG INJ IV SCH (22:29)
[2022-04-04 05:13] LABS: Absolute Lymphocytes (CBC) 0.8 K/uL (0.7-4.9); Lymphocytes % 5.8 % (15.3-44.8); MCV 79.3 fL (80-100); MPV 8.1 fL (7.6-11.3); RBC Red Blood Cell Count 4.16 M/uL (4.33-5.43)
[2022-04-04 05:16] LABS: Protime INR 1.37
[2022-04-04 05:26] LABS: AST/SGOT 48 U/L (15-37); Albumin 3.3 g/dL (3.4-5.0); Alkaline Phosphatase 138 U/L (45-117); BUN Blood Urea Nitrogen 56 mg/dL (7-18); Bicarbonate 22 mmol/L (21-32); Bilirubin Total 0.7 mg/dL (0.2-1.0); Glomerular Filtration Rate 32 ml/min (=/>90); Glucose Level 223 mg/dL (74-106); Potassium 4.7 mmol/L (3.5-5.1); Protein, Total 6.1 g/dL (6.4-8.2); Sodium Level 137 mmol/L (136-145)
[2022-04-04 05:29] LABS: ALT/SGPT < 10 U/L (12-78)
--- NOTE | 2022-04-04 07:43 | P.HP ---
Certification for Inpatient Patient admitted to: Inpatient With expected LOS: >2 Midnights Patient will require the following post-hospital care: None Practitioner: I am a practitioner with admitting privileges, knowledge of patient current condition, hospital course, and medical plan of care. Services: Services provided to patient in accordance with Admission requirements found in Title 42 Section 412.3 of the Code of Federal Regulations Patient History Date of Service: 04/03/22 Reason for admission: Pneumonia; Allergies codeine Allergy (Verified 08/11/21 13:12) Itching Penicillins Allergy (Verified 08/11/21 13:12) Rash Home Medications: Amlodipine [Norvasc*] 10 mg PO DAILY 05/12/18 Atorvastatin Calcium [Lipitor] 40 mg PO BEDTIME 05/12/18 Allopurinol 1 tab PO DAILY 10/10/20 Aspirin 1 tab PO DAILY 10/10/20 Doxazosin Mesylate 1 tab PO BEDTIME 10/10/20 Gabapentin 300 mg PO BEDTIME 10/10/20 L.acidoph,Paracasei, B.lactis [Probiotic] 1 cap PO DAILY 10/10/20 Vit C/E/Zn/Coppr/Lutein/Zeaxan [Preservision Areds 2 Softgel] 1 each PO BID 10/10/20 Furosemide [Lasix*] 40 mg PO DAILY 30 Days #30 tab 10/13/20 lisinopriL [Lisinopril] 40 mg PO DAILY 12/18/20 Rivaroxaban [Xarelto] 20 mg PO DAILY 30 Days #30 tablet 12/20/20 clindamycin HCL [Clindamycin HCl] 600 mg PO Q8H 14 Days #84 capsule 12/20/20 levoFLOXacin [Levaquin] 750 mg PO DAILY 14 Days #14 tab 12/20/20 - Past Medical/Surgical History Has patient received pneumonia vaccine in the past: Yes Diabetic: Yes -: Hypertension -: DM type 2 -: Chronic atrial fibrillation -: Coronary artery disease -: Benign Tremors -: CABG -: Rotator cuff surgery - Family History Sister Medical History: Diabetes Father Medical History: Lung disease Notes: emphysema - Social History Smoking Status: Never smoker Alcohol use: No CD- Drugs: No Place of Residence: Home Review of Systems 10-point ROS is otherwise unremarkable Physical Examination - Vital Signs Temperature: 97.2 F Blood Pressure: 165/66 Pulse: 62 Respirations: 19 Pulse Ox (%): 95 - Physical Exam General: Alert, In no apparent distress, Oriented x3 HEENT: Atraumatic, PERRLA, Mucous membr. moist/pink, EOMI, Sclerae nonicteric Neck: Supple, 2+ carotid pulse no bruit, No LAD, Without JVD or thyroid abnormality Respiratory: Diminished, Rhonchi/gurgles Cardiovascular: Regular rate/rhythm, Normal S1 S2, No murmurs Gastrointestinal: Normal bowel sounds, Soft and benign, Non-distended, No tenderness, No rebound, No guarding Musculoskeletal: No clubbing, No swelling, No tenderness Integumentary: No rashes Neurological: Normal speech, Normal strength at 5/5 x4 extr, Normal tone, Sensation intact, Cranial nerves 3-12 intact Lymphatics: No axilla or inguinal lymphadenopathy - Studies Microbiology Data (last 24 hrs): 04/03/22 06:08 Nasopharnyx Influenza Type A Antigen Screen - Final 04/03/22 06:08 Nasopharnyx Influenza Type B Antigen Screen - Final Assessment & Plan - Problems (Diagnosis) (1) Pneumonia Current Visit: Yes Status: Acute Qualifiers: Pneumonia type: due to unspecified organism Laterality: bilateral Lung location: lower lobe of lung Qualified Code(s): J18.9 - Pneumonia, unspecified organism (2) Chronic atrial fibrillation Current Visit: No Status: Acute (3) Congestive heart failure Current Visit: No Status: Acute (4) DM type 2 (diabetes mellitus, type 2) Current Visit: No Status: Acute (5) Hypertension Current Visit: No Status: Acute Qualifiers: Hypertension type: primary hypertension Qualified Code(s): I10 - Essential (primary) hypertension - Plan Plan: 1. Continue with IV antibiotics 2. Awaiting sputum and blood culture 3. Repeat chest x-ray 4. CT scan of the chest if pneumonia is not improving- 5. Appreciate pulmonary consultation 6. Continue with nebs as needed 7. O2 per protocol 8. Continue with gentle hydration 9. Repeat labs including CBC and renal function in a.m. 10. GI and DVT prophylaxis Discharge Plan: Home Plan to discharge in: Greater than 2 days - Advance Directives Does patient have a Living Will: No Does patient have a Durable POA for Healthcare: No - Code Status/Comfort Care Code Status Assessed: Yes Code Status: Full Code Critical Care: No Time Spent Managing PTS Care (In Minutes): 45
--- NOTE | 2022-04-04 07:49 | P.PN ---
Subjective Date of Service: 04/04/22 Subjective: No new changes, No C/O voiced, Improving Review of Systems 10-point ROS is otherwise unremarkable Physical Examination - Vital Signs Temperature: 97.2 F Blood Pressure: 165/66 Pulse: 62 Respirations: 19 Pulse Ox (%): 95 - Physical Exam General: Alert, In no apparent distress, Oriented x3 Respiratory: Diminished, Expiratory wheezes Cardiovascular: Regular rate/rhythm, Normal S1 S2, No murmurs Gastrointestinal: Normal bowel sounds, Soft and benign, Non-distended, No tenderness Musculoskeletal: No clubbing, No swelling, No tenderness Neurological: Sensation intact, Cranial nerves 3-12 intact - Studies Microbiology Data (last 24 hrs): 04/03/22 06:08 Nasopharnyx Influenza Type A Antigen Screen - Final 04/03/22 06:08 Nasopharnyx Influenza Type B Antigen Screen - Final Medications List Reviewed: Yes Assessment & Plan - Problems (Diagnosis) (1) Pneumonia Current Visit: Yes Status: Acute Qualifiers: Pneumonia type: due to unspecified organism Laterality: bilateral Lung location: lower lobe of lung Qualified Code(s): J18.9 - Pneumonia, unspecified organism (2) Chronic atrial fibrillation Current Visit: No Status: Acute (3) Congestive heart failure Current Visit: No Status: Acute (4) DM type 2 (diabetes mellitus, type 2) Current Visit: No Status: Acute (5) Hypertension Current Visit: No Status: Acute Qualifiers: Hypertension type: primary hypertension Qualified Code(s): I10 - Essential (primary) hypertension - Plan Plan: 1. Continue with IV antibiotics 2. Awaiting sputum and blood culture 3. Repeat chest x-ray 4. CT scan of the chest if pneumonia is not improving- 5. Appreciate pulmonary consultation 6. Continue with nebs as needed 7. O2 per protocol 8. Continue with gentle hydration 9. Repeat labs including CBC and renal function in a.m. 10. GI and DVT prophylaxis Discharge Plan: Home Plan to discharge in: Greater than 2 days - Advance Directives Does patient have a Living Will: No Does patient have a Durable POA for Healthcare: No - Code Status/Comfort Care Code Status: Full Code Critical Care: No Time Spent Managing PTS Care (In Minutes): 45
[2022-04-04] MEDS: HYDROCORTISONE SUC 100 MG INJ IV SCH ×2 (07:59→20:15)
[2022-04-04] MEDS: NA CHLORIDE 0.9% 1,000 ML IV SCH (08:00)
--- NOTE | 2022-04-04 13:11 | CON ---
Date of Consultation: 04/04/2022 Reason For Consultation: Elevated BUN and creatinine, hypertension, fluid management. 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 The patient came to the hospital over the weekend. He attended a football game. After the football game, he started feeling tired, weak, cough with yellowish sputum. His symptoms gradually got worse until he came to the hospital yesterday, found to have elevation in BUN and creatinine. For that reason, we have been consulted. The only changes in his medication when we saw him back in February. He has significant increase in his leg swelling. At that time, we resumed his Lasix. The patient also continued to be on SHAHBAZ inhibitor. Otherwise, no other insulting medications. The patient denied taking any nonsteroidal. No IV contrast. No recent hospitalization. Upon arrival to the hospital, creatinine was 2.5. The patient was initiated on hydration, creatinine down to 2, GFR has been improved to 32. His baseline GFR used to be 44. Past Medical History: As I mention above; 1. Parkinson disease. 2. Hypertension. 3. COPD. 4. Diabetes since 2009, complicated with neuropathy, no retinopathy. 5. 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 6. Chronic edema. Allergies: TO CODEINE AND PENICILLIN. Past Surgical History: Includes; 1. CABG. 2. Rotator cuff surgery. Family History: Positive for diabetes and COPD. Social History: Denied smoking, denied drinking, denied drugs abuse. Review of Systems: Head and Neck: No red eye. No ear pain. Has light headache. GI: Decreased intake. : No polyuria. No dysuria. No hematuria. Product Development Ecologist: Not applicable. Respiratory: Has cough. Cardiovascular: Has leg swelling. Endocrine: No polydipsia. Skin: No rash. Neuro: Has neuropathy. Has tremor. Musculoskeletal: Generalized fatigue and cramp. Physical Examination: Vital Signs: When I saw the patient; blood pressure 165/66, pulse of 62, afebrile. Chest: Clear to auscultation. Heart: S1, S2. Regular. Abdomen: Soft, nontender. Extremity: Trace edema. Venous stasis change bilaterally. Neuro: Resting tremor. No weakness. Laboratory Data: Back in February 2022; hemoglobin 11.3, BUN 19, creatinine 1.6, GFR 44, calcium of 8.8. Upon admission to the hospital; sodium 133, potassium 4.8, bicarb 22, BUN 64, creatinine 2.5, GFR 26. Calcium is 8.6, albumin 3.7. Corrected calcium is 8.6. Today lab data; sodium 137, potassium 4.7, bicarb 22, BUN 56, creatinine 2, calcium 8.7. Urinalysis negative for infection, +3 protein. Chest x-ray; cardiomegaly with congestion. Renal ultrasound showing a small size kidney, no obstruction, [address] abdomen and pelvis was done without any contrast showed pneumonia. Current Medications: The patient received 3 L of IV fluid bolus, Levaquin 500, vancomycin, morphine. Lisinopril has discontinued. Lasix has been discontinued. Assessment And Plan: 1. Acute kidney injury secondary to prerenal, dehydration, secondary to heat exertion, superimposed with SHAHBAZ inhibitor and Lasix, on the recovery phase, looked to me normal volume, currently with history of congestive heart failure. I will hold on further bolus of the fluid and maintain the patient on 50 per hour and we will monitor the patient. I agree with holding Lasix, holding lisinopril for the time being, and we will follow up the patient. 2. Hypertension, controlled, optimal with the presence of acute kidney injury as above. Holding SHAHBAZ inhibitor and Lasix. We will monitor. 3. Heat exertion secondary to dehydration and Lasix, on the recovery phase. 4. Hyponatremia, depletional, resolved. 5. Congestive heart failure, currently normal volume. I am going to hold on any diuresis for the time being and we will follow up. Time spent examining the patient [id number], reviewing the data of lab and radiology discussing the case with the patient reviewing the case with the tractor driver teamster including nursing discussing the case with the hospitalist 35-minute NURIS/TIFFANIE Voice ID: [id number] Report ID: [id number] DRAKE
[2022-04-04] MEDS: RIVAROXABAN 20 MG TABLET PO SCH (18:45)
[2022-04-04] MEDS: ATORVASTATIN 40 MG TAB PO SCH (20:14)
[2022-04-04] MEDS: DOXAZOSIN 2 MG TAB PO SCH (20:14)
[2022-04-04] MEDS: GABAPENTIN 300 MG CAP PO SCH (20:14)
--- NOTE | 2022-04-05 07:14 | P.PN ---
Date of Service: 04/05/22 Subjective Subjective: No new changes, No C/O voiced, Improving; Patient states he feels much better. Review of Systems 10-point ROS is otherwise unremarkable Physical Examination - Vital Signs Reviewed - Physical Exam General: Alert, In no apparent distress, Oriented x3 Respiratory: Diminished, Expiratory wheezes Cardiovascular: Regular rate/rhythm, Normal S1 S2, No murmurs Gastrointestinal: Normal bowel sounds, Soft and benign, Non-distended, No tenderness Musculoskeletal: No clubbing, No swelling, No tenderness Neurological: Sensation intact, Cranial nerves 3-12 intact Assessment & Plan - Problems (Diagnosis) (1) Pneumonia Current Visit: Yes Status: Acute Qualifiers: Pneumonia type: due to unspecified organism Laterality: bilateral Lung location: lower lobe of lung Qualified Code(s): J18.9 - Pneumonia, unspecified organism (2) Chronic atrial fibrillation Current Visit: No Status: Acute (3) Congestive heart failure Current Visit: No Status: Acute (4) DM type 2 (diabetes mellitus, type 2) Current Visit: No Status: Acute (5) Hypertension Current Visit: No Status: Acute Qualifiers: Hypertension type: primary hypertension Qualified Code(s): I10 - Essential (primary) hypertension - Plan Continue with plan of care as mentioned below: 1. Continue with IV antibiotics 2. Awaiting sputum and blood culture 3. Repeat chest x-ray 4. Continue with strict blood pressure and blood sugar control 5. Appreciate cardiology and nephrology consultation 6. Continue with nebs as needed 7. O2 per protocol 8. Continue with gentle hydration 9. Repeat labs including CBC and renal function in a.m. 10. GI and DVT prophylaxis Discharge Plan: Home Plan to discharge in: Greater than 2 days - Advance Directives Does patient have a Living Will: No Does patient have a Durable POA for Healthcare: No - Code Status/Comfort Care Code Status: Full Code Critical Care: No Time Spent Managing PTS Care (In Minutes): 45
[2022-04-05] MEDS ORDERED: RIVAROXABAN 20 MG TABLET PO SCH (08:00)
[2022-04-05] MEDS: ASPIRIN 81 MG CHEWABLE TABLET PO SCH (08:43)
[2022-04-05] MEDS: allopurinoL 300 MG TAB PO SCH (08:43)
[2022-04-05] MEDS: HYDROCORTISONE SUC 100 MG INJ IV SCH ×2 (08:43→21:55)
[2022-04-05] MEDS: AMLODIPINE 10 MG TAB PO SCH (08:44)
[2022-04-05] MEDS: lisinopriL 20 MG TAB PO SCH (08:44)
[2022-04-05] MEDS ORDERED: HOME MED 1 EA UNK (Lisinopril [Lisinopril] 40 MG Tablet) PO SCH (09:00)
[2022-04-05] MEDS ORDERED: FUROSEMIDE 40 MG TABLET PO SCH (09:00)
[2022-04-05] MEDS ORDERED: Levofloxacin 750mg IV 750 MG/150 ML BAG IV SCH (12:00)
[2022-04-05 12:19] LABS: Absolute Lymphocytes (CBC) 0.7 K/uL (0.7-4.9); Hematocrit 37.2 % (39.6-49.0); Lymphocytes % 7.1 % (15.3-44.8); MCV 79.9 fL (80-100); MPV 8.1 fL (7.6-11.3); RBC Red Blood Cell Count 4.65 M/uL (4.33-5.43)
[2022-04-05 12:48] LABS: Albumin 3.9 g/dL (3.4-5.0); Magnesium 2.3 mg/dL (1.8-2.4); Potassium 4.6 mmol/L (3.5-5.1); Protein, Total 7.2 g/dL (6.4-8.2)
[2022-04-05] MEDS ORDERED: VANCOMYCIN 1.75 GM in NA CHLORIDE 0.9% 500 ML IVPB SCH ×4 (13:00)
--- NOTE | 2022-04-05 15:41 | PN ---
Date of Progress Note: 04/05/2022 Subjective: The patient was admitted with acute kidney injury secondary to prerenal, secondary to heat exhaustion and over diuresis. The patient was treated, recovered. The patient came today feeling well. Diuresis has been stopped. Physical Examination: Vital Signs: Blood pressure 153/80, pulse of 62, afebrile. Chest: Clear to auscultation. Heart: S1, S2 regular. Abdomen: Soft, nontender. Extremity: Trace edema. Neuro: Alert, oriented x3. No focal. Laboratory Data: WBC 10.4, H and H 11.8/37.2. Sodium 136, potassium 4.6, bicarb 24, BUN 50, creatinine down to 1.9, GFR 35, calcium 9.6. Current Medications: The patient on include; 1. Levaquin 750 every 48 hours. 2. Vancomycin. 3. Xarelto. 4. Amlodipine 10. 5. Cardura 2 mg. 6. Lisinopril 40. 7. Gabapentin. 8. Lasix 40 daily. 9. Lisinopril. 10. Hydrocortisone. 11. Allopurinol. Assessment And Plan: 1. Acute kidney injury secondary to prerenal, secondary to heat exhaustion, superimposed with over diuresis, recovered, resolved. Okay to resume Lasix 20 mg daily and we will monitor. 2. Gout, stable. 3. Hypertension, controlled, optimal. Continue current treatment. Decrease Lasix to 20 mg and continue lisinopril. 4. Congestive heart failure, currently normal volume. Resume Lasix 20 mg. 5. Pneumonia as by primary. Continue current antibiotic. We will follow up vancomycin level. 6. Hyponatremia secondary to dilutional secondary to congestive heart failure. Resume Lasix 20 mg. The patient cleared from the Renal standpoint for discharge planning to follow up in the office in 2-3 weeks. Time spent examining the patient [id number], reviewing the data of lab and radiology discussing the case with the patient reviewing the case with the team assistant including nursing discussing the case with the hospitalist 35-minute NURIS/TIFFANIE Voice ID: [id number] Report ID: [id number] MTDDutch
[2022-04-05] MEDS: RIVAROXABAN 20 MG TABLET PO SCH (17:28)
[2022-04-05 17:47] VITALS: O2SAT 96
--- NOTE | 2022-04-05 21:11 | CON ---
Date of Consultation: 04/03/2022 Reason For Consultation: Atrial fibrillation. History Of Present Illness: Mr. Swartz is a 77-year-old white male, known to me from previous office vi sits and admissions. He has a history of atrial fibrillation, diabetes, hypertension, dyslipidemia, coronary artery disease status post CABG, and parkinsonism, came in with pneumonia and sepsis and rap id rate with atrial fibrillation. He has no cardiac symptoms. Denied PND, orthopnea, pedal edema, p alpitations, or syncope. He has some shortness of breath from his pneumonia. Has had some cough. H as had some chills, but no fever. He denied any chest pain. Past Medical History: As stated above. Allergies: HE IS ALLERGIC TO CODEINE AND PENICILLIN. Review of Systems: Negative. Social History: Negative. Family History: Noncontributory. Physical Examination: Vital Signs: Stable. He was in atrial fibrillation at a rate of 60. Afebrile. HEENT: Negative. Neck: Supple without any lymphadenopathy, JVD, thyromegaly, or bruit. Chest: Revealed some crackles both bases and some expiratory wheezing. Cardiac: Revealed atrial fibrillation. Abdomen: Benign. Extremities: Revealed no clubbing, cyanosis. He had trace edema and chronic venous changes distally . His pulses were present bilaterally distally. Neurologic: He was nonfocal. Skin: Dry and intact. Diagnostic Data: EKG showed atrial fibrillation. Chest x-ray showed congestive heart failure, possi ble pneumonia. Procalcitonin was elevated. Creatinine is 2.05. His white count was 17,000. Tropon in was 361. Glucose . Impression And Plan: 1.Elevated troponin secondary to demand ischemia from pneumonia as well as renal insufficiency. 2.Chronic atrial fibrillation for which he takes Xarelto. 3.Mild congestive heart failure exacerbation. 4.Renal insufficiency. 5.Elevated white count. 6.Poorly controlled diabetes. 7.Elevated procalcitonin secondary to sepsis. 8.Hypertension, well controlled. 9.Dyslipidemia, well controlled. 10.Parkinsonism. 11.Coronary artery disease, status post coronary artery bypass graft. I will continue his present r egimen including Xarelto, lisinopril, Lasix, allopurinol, Norvasc, Lipitor, and aspirin. H e needs to be on antibiotics. He needs to have some mild diuresis while watching his kidney function . No need for doing anything with his atrial fibrillation. SHAYNA/TIFFANIE Voice ID: [id number] Report ID: [id number]
[2022-04-05] MEDS: GABAPENTIN 300 MG CAP PO SCH (21:56)
[2022-04-05] MEDS: DOXAZOSIN 2 MG TAB PO SCH (21:56)
[2022-04-05] MEDS: ATORVASTATIN 40 MG TAB PO SCH (21:56)
[2022-04-05] MEDS ORDERED: HYDRALAZINE HCL 20 MG/ML VIAL IV PRN (22:14)
[2022-04-06 06:18] LABS: Absolute Lymphocytes (CBC) 0.9 K/uL (0.7-4.9); Hematocrit 30.8 % (39.6-49.0); Lymphocytes % 10.4 % (15.3-44.8); MCV 79.8 fL (80-100); MPV 7.8 fL (7.6-11.3); RBC Red Blood Cell Count 3.86 M/uL (4.33-5.43)
[2022-04-06 06:33] LABS: Albumin 3.2 g/dL (3.4-5.0); Bilirubin Total 0.8 mg/dL (0.2-1.0); Magnesium 1.9 mg/dL (1.8-2.4); Potassium 4.4 mmol/L (3.5-5.1); Protein, Total 5.8 g/dL (6.4-8.2)
--- NOTE | 2022-04-06 07:17 | RAD REPORT ---
EXAM DESCRIPTION: RAD - Chest Single View - 04/06/2022 4:55 am CLINICAL HISTORY: pneumonia COMPARISON: Portable 04/03/2022 TECHNIQUE: AP portable chest image was obtained 04/06/2022 4:55 am . FINDINGS: No new mass or consolidation. Central vasculature and lung markings have decreased in prom inence. Sternotomy wires are in place. No new or progressive parenchymal finding. Heart and vasculatu re are normal. No measurable pleural effusion and no pneumothorax. No acute bony abnormality seen. No acute aortic findings suspected. IMPRESSION: Complete or near complete resolution of the mild CHF or volume overload pattern. No focal infiltrate identifiable.
[2022-04-06] MEDS: HYDROCORTISONE SUC 100 MG INJ IV SCH (08:17)
[2022-04-06] MEDS: allopurinoL 300 MG TAB PO SCH (08:17)
[2022-04-06] MEDS: ASPIRIN 81 MG CHEWABLE TABLET PO SCH (08:17)
[2022-04-06] MEDS: AMLODIPINE 10 MG TAB PO SCH (08:18)
[2022-04-06 08:19] VITALS: BP 137/56
[2022-04-06] MEDS: lisinopriL 20 MG TAB PO SCH (08:19)
[2022-04-06] MEDS ORDERED: FUROSEMIDE 20 MG TABLET PO SCH (09:00)
[2022-04-06 10:54] VITALS: TEMP 97.7
--- NOTE | 2022-04-06 12:00 | P.PN ---
Subjective Date of Service: 04/06/22 Chief Complaint: Pneumonia; Physical Examination - Vital Signs Temperature: 97.7 F Blood Pressure: 137/56 Pulse: 65 Respirations: 18 Pulse Ox (%): 97 - Studies Microbiology Data (last 24 hrs): 04/03/22 06:37 Clean Catch Urine [place] Count - Final BETWEEN 10,000 & 100,000 CFU/ML 04/03/22 06:37 Clean Catch Urine - Final MIXED DENZEL. Medications List Reviewed: Yes Assessment And Plan - Plan 1. Acute kidney injury secondary to prerenal, secondary to heat exhaustion, superimposed with over diuresis, recovered, resolved. Okay to resume Lasix 20 mg daily and we will monitor. 2. Gout, stable. 3. Hypertension, controlled, optimal. Continue current treatment. Decrease Lasix to 20 mg and continue lisinopril. 4. Congestive heart failure, currently normal volume. Resume Lasix 20 mg. 5. Pneumonia as by primary. Continue current antibiotic. We will follow up vancomycin level. 6. Hyponatremia secondary to dilutional secondary to congestive heart failure. Resume Lasix 20 mg. The patient cleared from the Renal standpoint for discharge planning to follow up in the office in 2-3 weeks.
== END 2022-04-06 11:50 | disposition home or self-care (01) | DRG 871 ==
LOC: ER 05:35 → ERHOLD 11:02 → INTOOBSV 11:02 → OBSVTOIN 11:02 → 3RD-ICU 19:26 → 4TH 04-04 14:20
PROVIDERS: ADMIT Hospitalist; ATTEND Hospitalist
DX: A41.9 Sepsis, unspecified organism (principal); J18.9 Pneumonia, unspecified organism; N17.9 Acute kidney failure, unspecified; E87.1 Hypo-osmolality and hyponatremia; I48.20 Chronic atrial fibrillation, unspecified; I13.0 Hypertensive heart and chronic kidney disease with heart failure and stage 1 through stage 4 chronic kidney disease, or unspecified chronic kidney disease; J44.0 Chronic obstructive pulmonary disease with (acute) lower respiratory infection; R65.20 Severe sepsis without septic shock; T67.5XXA Heat exhaustion, unspecified, initial encounter; M10.9 Gout, unspecified; G20 Parkinson's disease; E11.22 Type 2 diabetes mellitus with diabetic chronic kidney disease; N18.32 Chronic kidney disease, stage 3b; I50.9 Heart failure, unspecified; E11.21 Type 2 diabetes mellitus with diabetic nephropathy; I25.10 Atherosclerotic heart disease of native coronary artery without angina pectoris; Z95.1 Presence of aortocoronary bypass graft; Z88.0 Allergy status to penicillin; Z20.822 Contact with and (suspected) exposure to COVID-19
CPT/HCPCS: 36415; 71045; 71250; 74176; 76770; 80048; 80053; 80076; 80202; 81003; 82947; 83605; 83690; 83735; 83880; 84145; 84484; 85025; 85610; 85730; 87040; 87086; 87088; 87804; 93005; 96365; 96366; 99285; J0360; J0456; J1720; J3370; J7030; J7040; J7050; U0003

== ENCOUNTER 2022-09-19 12:39 | Inpatient (IN) | payer OTHER ==
--- OUTSIDE RECORDS SUMMARY | 2022-09-19 12:42 | XMS REPORT | Continuity of Care Document ---
:1945 Author Organization [facility] t Address [address] [place] [address] Care Team Providers Name Role Phone [phone] Primary Care Physician Unavailable JOSEE LI Attending Clinician Unavailable EH TAVAREZ Attending Clinician Unavailable JONNY TODD Attending Clinician Unavailable SHAWNEE HERNANDEZ Attending Clinician Unavailable FADIA RIVERA Attending Clinician Unavailable Payers Payer Name Policy Type Policy Number Effective Date Expiration Date S sugar [employer] MEDICARE PPO [id number] 2021 00:00:00 Problems This patient has no known problems. Allergies, Adverse Reactions, Alerts Allergy Allergy Status Severity Reaction(s) Onset Inactive Treating Comm ents Source Name Type Date Date Clinician CODEINE DRUG Active MD SULFATE INGREDI 6-24 Anderso 00:00: n 00 PENICILL Drug Active Low Rash MD INS Class 6-24 Anderso 00:00: n 00 CODEINE DRUG Active MD SULFATE INGREDI 6-24 Anderso 00:00: n 00 PENICILL Drug Active Low Rash 2015- MD INS Class 6-24 Anderso 00:00: n 00 CODEINE DRUG Active MD SULFATE INGREDI 6-24 Anderso 00:00: n 00 PENICILL Drug Active Low Rash 2015- MD INS Class 6-24 Anderso 00:00: n 00 CODEINE DRUG Active 2015- MD SULFATE INGREDI 6-24 Anderso 00:00: n 00 PENICILL Drug Active Low Rash 2015-0 MD INS Class 6-24 Anderso 00:00: n 00 CODEINE DRUG Active MD SULFATE INGREDI 6-24 Anderso 00:00: n 00 PENICILL Drug Active Low Rash 2015- MD INS Class 6-24 Anderso 00:00: n 00 CODEINE DRUG Active 2016-0 MD SULFATE INGREDI 6-24 Anderso 00:00: n 00 PENICILL Drug Active Low Rash 2016-0 MD INS Class 6-24 Anderso 00:00: n 00 CODEINE DRUG Active 2016-0 MD SULFATE INGREDI 6-24 Anderso 00:00: n 00 PENICILL Drug Active Low Rash 2016-0 MD INS Class 6-24 Anderso 00:00: n 00 CODEINE DRUG Active 2016-0 MD SULFATE INGREDI 6-24 Anderso 00:00: n 00 PENICILL Drug Active Low Rash 2016-0 MD INS Class 6-24 Anderso 00:00: n 00 CODEINE DRUG Active 2016-0 MD SULFATE INGREDI 6-24 Anderso 00:00: n 00 PENICILL Drug Active Low Rash 2016-0 MD INS Class 6-24 Anderso 00:00: n 00 CODEINE DRUG Active 2016-0 MD SULFATE INGREDI 6-24 Anderso 00:00: n 00 PENICILL Drug Active Low Rash 2016-0 MD INS Class 6-24 Anderso 00:00: n 00 CODEINE DRUG Active 2016-0 MD SULFATE INGREDI 6-24 Anderso 00:00: n 00 PENICILL Drug Active Low Rash 2016-0 MD INS Class 6-24 Anderso 00:00: n 00 CODEINE DRUG Active 2016-0 MD SULFATE INGREDI 6-24 Anderso 00:00: n 00 PENICILL Drug Active Low Rash 2016-0 MD INS Class 6-24 Anderso 00:00: n 00 CODEINE DRUG Active 2016-0 MD SULFATE INGREDI 6-24 Anderso 00:00: n 00 PENICILL Drug Active Low Rash 2016-0 MD INS Class 6-24 Anderso 00:00: n 00 CODEINE DRUG Active 2016-0 MD SULFATE INGREDI 6-24 Anderso 00:00: n 00 PENICILL Drug Active Low Rash 2016-0 MD INS Class 6-24 Anderso 00:00: n 00 CODEINE DRUG Active 2016-0 MD SULFATE INGREDI 6-24 Anderso 00:00: n 00 PENICILL Drug Active Low Rash 2016-0 MD INS Class 6-24 Anderso 00:00: n 00 CODEINE DRUG Active 2016-0 MD SULFATE INGREDI 6-24 Anderso 00:00: n 00 PENICILL Drug Active Low Rash 2016-0 MD INS Class 6-24 Anderso 00:00: n 00 CODEINE DRUG Active 2016-0 MD SULFATE INGREDI 6-24 Anderso 00:00: n 00 PENICILL Drug Active Low Rash 2016-0 MD INS Class 6-24 Anderso 00:00: n 00 CODEINE DRUG Active 2016-0 MD SULFATE INGREDI 6-24 Anderso 00:00: n 00 PENICILL Drug Active Low Rash 2016-0 MD INS Class 6-24 Anderso 00:00: n 00 CODEINE DRUG Active 2016-0 MD SULFATE INGREDI 6-24 Anderso 00:00: n 00 PENICILL Drug Active Low Rash 2016-0 MD INS Class 6-24 Anderso 00:00: n 00 CODEINE DRUG Active 2016-0 MD SULFATE INGREDI 6-24 Anderso 00:00: n 00 PENICILL Drug Active Low Rash 2016-0 MD INS Class 6-24 Anderso 00:00: n 00 CODEINE DRUG Active 2015-0 MD SULFATE INGREDI 6-24 Anderso 00:00: n 00 PENICILL Drug Active Low Rash 2015-0 MD INS Class 6-24 Anderso 00:00: n 00 CODEINE DRUG Active 2015-0 MD SULFATE INGREDI 6-24 Anderso 00:00: n 00 PENICILL Drug Active Low Rash 2016-0 MD INS Class 6-24 Anderso 00:00: n 00 Medications This patient has no known medications. Procedures This patient has no known procedures. Encounters Start End Encounter Admission Attending Care Care Encounter Source Date/Time Date/Time Type Type Clinicians Facility Department ID 2022-08-02 2022-08-02 Outpatient NATHANAEL MDA [id number] MD 10:40:58 23:59:00 Augusto o n 2022-08-02 2022-08-02 Outpatient BHUPENDRANATHANAEL EASTMAN MDA [id number] MD 13:29:31 13:29:31 JOSEE grider 2022-08-02 2022-08-02 Outpatient MDA MDA [id number] MD 12:59:37 12:59:37 Augusto o n 2022-08-02 2022-08-02 Outpatient NATHANAEL MDA [id number] MD 11:29:26 11:29:26 Augusto o n 2022-08-02 2022-08-02 Outpatient EL NATHANAEL TAVAREZ MDA [id number] MD 09:12:03 10:12:28 EH grider 2021-08-03 2021-08-03 Outpatient PEREZ, MDA MDA [id number] 11:01:39 23:59:00 JONNY Casas o cheo 2021-08-03 2021-08-03 Outpatient PEREZ, MDA MDA [id number] 13:29:14 13:29:14 JONNY Casas o cheo 2021-08-03 2021-08-03 Outpatient [facility], MDA MDA [id number] MD 12:46:21 13:24:31 EH grider 2021-08-03 2021-08-03 Outpatient PEREZ, MDA MDA [id number] 11:00:35 11:00:35 JONNY grider 2021-08-03 2021-08-03 Outpatient PEREZ, MDA MDA [id number] 09:18:41 09:18:41 JONNY grider 2020-08-03 2020-08-04 Outpatient [facility], MDA MDA [id number] 07:25:55 06:29:04 SHAWNEE grider 2020-08-02 2020-08-02 Outpatient RIVERA, FADIA MDA MDA [id number] 12:09:49 23:59:00 Augusto o cheo 2020-08-02 2020-08-02 Outpatient RIVERA, FADIA MDA MDA [id number] 09:30:00 12:08:00 Augusto o cheo 2020-08-02 2020-08-02 Outpatient RIVERA FADIA MDA MDA [id number] 09:59:38 09:59:38 Augusto o cheo 2020-08-02 2020-08-02 Outpatient RIVERA FADIA MDA MDA [id number] 00:00:00 00:00:00 Augusto o cheo Results This patient has no known results.
--- NOTE | 2022-09-19 15:35 | RAD REPORT ---
EXAM DESCRIPTION: RAD - Chest Single View - 09/19/2022 3:28 pm CLINICAL HISTORY: SOB COMPARISON: Chest Single View dated 04/06/2022; Chest Single View dated 04/03/2022; Chest Pa And Lat ( 2 Views) dated 08/11/2021; Chest Single View dated 12/19/2020 FINDINGS: Lines: None. Lungs: Vascular engorgement. Pleural: Small right effusion. Cardiac: Mild cardiomegaly. Mediastinum: Within normal limits. Bones: No acute fractures. Sternotomy. Other: None IMPRESSION: Findings likely representing edema with small right effusion.
[2022-09-19 15:49] LABS: Protime INR 1.32
[2022-09-19 15:50] LABS: Absolute Lymphocytes (CBC) 0.8 K/uL (0.7-4.9); Hematocrit 23.2 % (39.6-49.0); Lymphocytes % 11.7 % (15.3-44.8); MCV 82.6 fL (80-100); MPV 8.2 fL (7.6-11.3)
[2022-09-19 16:09] LABS: Albumin 3.8 g/dL (3.4-5.0); Bilirubin Direct 0.3 mg/dL (0-0.2); Bilirubin Total 0.8 mg/dL (0.2-1.0); Magnesium 2.8 mg/dL (1.8-2.4); Protein, Total 6.4 g/dL (6.4-8.2)
[2022-09-19 16:11] LABS: Troponin High Sensitivity 67.7 pg/mL (<58.9)
[2022-09-19 16:30] LABS: SARS-COV-2 RT PCR NEGATIVE (NEGATIVE)
[2022-09-19] MEDS ORDERED: NA CHLORIDE 0.9% 250 ML ONE (17:15)
[2022-09-19] MEDS ORDERED: PANTOPRAZOLE 40 MG INJ ONE (17:15)
--- NOTE | 2022-09-19 18:35 | P.HP ---
Certification for Inpatient Patient admitted to: Inpatient With expected LOS: >2 Midnights Patient will require the following post-hospital care: None Practitioner: I am a practitioner with admitting privileges, knowledge of patient current condition, hospital course, and medical plan of care. Services: Services provided to patient in accordance with Admission requirements found in Title 42 Section 412.3 of the Code of Federal Regulations Patient History Date of Service: 09/19/22 Reason for admission: Upper GI bleed History of Present Illness: 77-year-old male with history of A. fib on chronic anticoagulation with Xarelto, aspirin, CAD status post CABG, insulin-dependent diabetes, hypertension, hyperlipidemia and CKD presents the emergency department for dyspnea on exertion. Patient reports symptoms worsening over the course the last couple weeks he also reports dark stools the past 2 weeks. He was evaluated in the emergency department his labs were significant for mild creatinine 2.72 GFR 23 BUN 91 hemoglobin 7.5 Pierce crit 20.2 BNP 4189 high-sensitivity troponin 67.7 chest x-ray shows findings likely representing edema with small right pleural effusion. Patient was given 2 units packed red blood cells in the emergency department ED provider discussed case with GI who recommends admission. He was placed on Protonix drip. Allergies codeine Allergy (Verified 08/11/21 13:12) Itching Penicillins Allergy (Verified 08/11/21 13:12) Rash Home Medications: Amlodipine [Norvasc*] 10 mg PO DAILY 05/12/18 Atorvastatin Calcium [Lipitor] 40 mg PO BEDTIME 05/12/18 Allopurinol 1 tab PO DAILY 10/10/20 Aspirin 1 tab PO DAILY 10/10/20 Doxazosin Mesylate 1 tab PO BEDTIME 10/10/20 Gabapentin 300 mg PO BEDTIME 10/10/20 L.acidoph,Paracasei, B.lactis [Probiotic] 1 cap PO DAILY 10/10/20 Vit C/E/Zn/Coppr/Lutein/Zeaxan [Preservision Areds 2 Softgel] 1 each PO BID 10/10/20 Furosemide [Lasix*] 40 mg PO DAILY 30 Days #30 tab 10/13/20 lisinopriL [Lisinopril] 40 mg PO DAILY 12/18/20 Dapagliflozin Propanediol [Farxiga] 1 tab PO DAILY 04/05/22 Rivaroxaban [Xarelto*] 1 tab PO DAILY AT SUPPER 04/05/22 levoFLOXacin [Levaquin] 500 mg PO DAILY #10 tab 04/06/22 predniSONE [Prednisone*] 20 mg PO BID #11 tab 04/06/22 - Past Medical/Surgical History Diabetic: Yes -: Hypertension -: DM type 2 -: Chronic atrial fibrillation -: Coronary artery disease -: Benign Tremors -: CKD -: CABG -: Rotator cuff surgery Psychosocial/ Personal History: Patient lives at home with his - Family History Sister -: Diabetes Father -: Lung disease Notes: emphysema - Social History Smoking Status: Never smoker Alcohol use: No CD- Drugs: No Caffeine use: No Place of Residence: Home Review of Systems 10-point ROS is otherwise unremarkable Respiratory: SOB with Excertion Gastrointestinal: Melena Physical Examination - Physical Exam General: Alert, In no apparent distress, Oriented x3 HEENT: Atraumatic, PERRLA, Mucous membr. moist/pink, EOMI, Sclerae nonicteric Neck: Supple, 2+ carotid pulse no bruit, No LAD, Without JVD or thyroid abnormality Respiratory: Clear to auscultation bilaterally, Normal air movement Cardiovascular: Regular rate/rhythm, Normal S1 S2, Edema Capillary refill: <2 Seconds Gastrointestinal: Normal bowel sounds, No tenderness Musculoskeletal: No tenderness Integumentary: No rashes Neurological: Normal gait, Normal speech, Normal strength at 5/5 x4 extr, Normal tone, Normal affect Lymphatics: No axilla or inguinal lymphadenopathy - Studies Laboratory Data (last 24 hrs) 09/19/22 15:31: PT 14.5 H, INR 1.32 09/19/22 15:31: WBC 6.80, Hgb 7.5 L, Hct 23.2 L, Plt Count 180 09/19/22 15:31: Sodium 139, Potassium 5.0, BUN 91 H, Creatinine 2.72 H, Glucose 120 H, Magnesium 2.8 H, Total Bilirubin 0.8, AST 18, ALT 13, Alkaline Phosphatase 154 H Assessment and Plan - Plan Assessment: Dyspnea on exertion, acute blood loss anemia secondary to upper GI bleed complicated with use of chronic anticoagulation Acute on chronic diastolic congestive heart failure Atrial fibrillation on chronic anticoagulation therapy KRISTI on CKD 4 Diabetes mellitus type 2insulin-dependent Hypertension Hyperlipidemia Plan: Dyspnea on exertion, acute blood loss anemia secondary to upper GI bleed complicated with use of chronic anticoagulation: NPO after midnight, give 2u PRBC now, monitor H/H. Gi consult, hold xarelto/asa. Continue protonix drip. Appreciate Gi input. Acute on chronic diastolic congestive heart failure: IV lasix, cardiology/nephrology consult. Atrial fibrillation on chronic anticoagulation therapy: Hold anticoagulation. monitor on tele, rate controlled. KRISTI on CKD 4: Nephrology consulted. Diabetes mellitus type 2insulin-dependent: Q6H accucheck, SSI Hypertension: Continue home meds. Hyperlipidemia: Continue home meds. DVT PPX: SCD Code status: Full Discharge Plan: Home Plan to discharge in: 72 Hours - Advance Directives Does patient have a Living Will: No Does patient have a Durable POA for Healthcare: No - Code Status/Comfort Care Code Status Assessed: Yes (Full code) Critical Care: No Time Spent Managing Pts Care (In Minutes): 70
--- NOTE | 2022-09-19 18:41 | ER ---
Nurse's Notes [facility] Name: Spenser Swartz Jr Age: 77 yrs Sex: Male : 1945 Arrival Date: 09/19/2022 Time: 12:44 Bed 25 Private MD: Diagnosis: GI Bleed/ Gastrointestinal hemorrhage, unspecified;Anemia, unspecified Presentation: 09/19 13:06 Chief complaint: Patient states: SOB with exertion worse than usual this week. No ll1 fever. Slight cough. No appetite. No N/V/D. Coronavirus screen: Vaccine status: Patient reports receiving the 2nd dose of the covid vaccine. Client denies travel out of the [place] in the last 14 days. cough unrelated to allergies, difficulty breathing, shortness of breath, Client presents with at least one sign or symptom that may indicate coronavirus-19. Standard/surgical mask placed on the client. Ebola Screen: Patient denies travel to an Ebola-affected area in the 21 days before illness onset. Initial Sepsis Screen: Does the patient meet any 2 criteria? No. Patient's initial sepsis screen is negative. Does the patient have a suspected source of infection? No. Patient's initial sepsis screen is negative. Risk Assessment: Do you want to hurt yourself or someone else? Patient reports no desire to harm self or others. Onset of symptoms was September 12, 2022. 13:06 Method Of Arrival: Wheelchair ll1 13:06 Acuity: AMA 3 ll1 Triage Assessment: 13:10 General: Appears uncomfortable, Behavior is cooperative, appropriate for age. Pain: ll1 Denies pain. Respiratory: Reports shortness of breath on exertion cough that is Onset: The symptoms/episode began/occurred 1 week, the patient has moderate shortness of breath. Musculoskeletal: Reports B feet swelling. Historical: - Allergies: 13:09 Codeine; ll1 13:09 PENICILLINS; ll1 - PMHx: 13:09 Atrial Fib; Diabetes - NIDDM; Hypertension; Parkinson's disease; ll1 - PSHx: 13:09 triple bypass; achilles tendon SX, L shoulder rotator cuff; ll1 - Immunization history:: Client reports receiving the 2nd dose of the Covid vaccine. - Social history:: Smoking status: Patient denies any tobacco usage or history of. Screenin:37 Abuse screen: Denies threats or abuse. Denies injuries from another. Nutritional tp1 screening: No deficits noted. Tuberculosis screening: No symptoms or risk factors identified. Fall Risk None identified. Assessment: 15:15 General: Appears in no apparent distress. comfortable, Behavior is calm, cooperative. tp1 Pain: Denies pain. Neuro: Level of Consciousness is awake, alert, obeys commands, Oriented to person, place, time, situation. Cardiovascular: Capillary refill < 3 seconds in bilateral fingers Patient's skin is warm and dry. Rhythm is atrial fibrillation. Respiratory: Reports shortness of breath cough that is Airway is patent Respiratory effort is even, unlabored, Breath sounds are clear Denies pain with respiration, pain with cough. GI: Abdomen is obese, Patient currently denies diarrhea, nausea, vomiting. : No signs and/or symptoms were reported regarding the genitourinary system. EENT: No signs and/or symptoms were reported regarding the EENT system. Derm: Skin is pink, warm \T\ dry. Musculoskeletal: Circulation, motion, and sensation intact. 15:40 Musculoskeletal: Swelling present in right leg and left leg. tp1 16:52 Reassessment: Patient appears in no apparent distress at this time. No changes from tp1 previously documented assessment. Patient and/or family updated on plan of care and expected duration. Pain level reassessed. Patient is alert, oriented x 3, equal unlabored respirations, skin warm/dry/pink. Patient denies pain at this time. 18:18 Reassessment: received written order from GUERLINE Fermin to administer tylenol 650 mg PO tp1 X1, benadryl 12.5 mg IV X1, and Solu-cortef 50 mg IV X1 pre-infusion. 18:18 Reassessment: Patient appears in no apparent distress at this time. No changes from tp1 previously documented assessment. Patient is alert, oriented x 3, equal unlabored respirations, skin warm/dry/pink. Patient denies pain at this time. 19:30 Reassessment: Patient appears in no apparent distress at this time. Patient is alert, tp1 oriented x 3, equal unlabored respirations, skin warm/dry/pink. resting in bed watching TV Patient denies pain at this time. 20:31 Reassessment: Patient appears in no apparent distress at this time. No changes from tp1 previously documented assessment. Patient is alert, oriented x 3, equal unlabored respirations, skin warm/dry/pink. Patient denies pain at this time. 20:33 Reassessment: attempted to give report. tp1 21:06 Reassessment: report given to Winnie FREEMAN. tp1 Vital Signs: 13:06 BP 117 / 81; Pulse 62; Resp 18; Temp 98.2(O); Pulse Ox 97% ; Weight 99.79 kg; Height 5 ll1 ft. 8 in. (172.72 cm); Pain 0/10; 15:38 BP 130 / 92; Pulse 63; Resp 16; Pulse Ox 100% on R/A; tp1 16:52 BP 111 / 42; Pulse 60; Resp 14; Pulse Ox 100% ; tp1 17:30 BP 100 / 49; Pulse 64; Resp 18; Pulse Ox 98% on R/A; tp1 20:30 BP 115 / 54; Pulse 62; Resp 18; Pulse Ox 97% on R/A; tp1 13:06 Body Mass Index 33.45 (99.79 kg, 172.72 cm) 1 ED Course: 12:44 Patient arrived in ED. am2 13:06 Arm band placed on. ll1 13:09 Triage completed. 1 14:49 David Fermin PA is PHCP. [facility] 14:49 Dom Toscano MD is Attending Physician. m 15:05 Patient placed in an exam room, on a stretcher. iw 15:12 Marybeth Zhang RN is Primary Nurse. tp1 15:30 XRAY Chest (1 view) In Process Unspecified. EDMS 15:37 Patient has correct armband on for positive identification. Placed in gown. Bed in low tp1 position. Adult w/ patient. Client placed on continuous cardiac and pulse oximetry monitoring. NIBP monitoring applied. 15:37 No provider procedures requiring assistance completed. EKG done. Inserted saline lock: tp1 20 gauge in right antecubital area, using aseptic technique. Blood collected. 15:40 COVID-19/FLU A+B Sent. tp1 16:52 Served as a cardiac rehabilitation program director during rectal exam. tp1 18:39 Yovani Schmid MD is Hospitalizing Provider. [facility] 21:06 Patient admitted, IV remains in place. tp1 Administered Medications: 17:20 Drug: ProTONIX (pantoprazole) 80 mg Route: IVP; Site: right antecubital; tp1 20:32 Follow up: Response: No adverse reaction tp1 17:25 Drug: ProTONIX (pantoprazole) 8 mg/hr Route: IV; Rate: 25 ml/hr; Site: right tp1 antecubital; 21:01 Follow up: IV Status: Infusion continued upon admission tp1 20:34 Drug: Solu-CORTEF (hyrdoCORTISONE) 50 mg Route: IVP; Site: right antecubital; kr3 21:01 Follow up: Response: No adverse reaction tp1 20:38 Drug: Benadryl (diphenhydrAMINE) 12.5 mg Route: IVP; Site: right antecubital; kr3 21:01 Follow up: Response: No adverse reaction tp1 20:38 Drug: Tylenol 650 mg Route: PO; kr3 21:01 Follow up: Response: No adverse reaction tp1 Medication: 15:40 VIS not applicable for this client. tp1 Outcome: 18:40 Decision to Hospitalize by Provider. conner 21:06 Admitted to Med/surg accompanied by nurse, via wheelchair, with chart. tp1 21:06 Condition: good 21:06 Discharge instructions given to patient, Instructed on the need for admit, Demonstrated understanding of instructions. 21:33 Patient left the ED. tp1 Signatures: Dispatcher [employer] EDMS David Fermin PA PA [facility] Virginie Cole RN RN Ashanti Valdes Lynsay, RN RN ll1 Marybeth Zhang RN RN tp1 Lynne Murrieta RN RN kr3 Corrections: (The following items were deleted from the chart) 18:19 18:17 Reassessment: tp1 tp1
--- NOTE | 2022-09-19 18:41 | EDPHYS ---
Physician Documentation [facility] Name: Spenser Swartz Jr Age: 77 yrs Sex: Male : 1945 Arrival Date: 09/19/2022 Time: 12:44 Bed 25 Private MD: ED Physician Dom Toscano HPI: 09/19 14:58 This 77 yrs old Male presents to ER via Wheelchair with complaints of Shortness Of jmm Breath. 14:58 The patient has shortness of breath at rest. Onset: The symptoms/episode began/occurred jmm gradually, 2 week(s) ago. Duration: The symptoms are continuous. The patient's shortness of breath is aggravated by exertion. Is a 77-year-old male with history of atrial fibrillation, diabetes mellitus, hypertension the presents emerged department with complaints of progressively worsening shortness of breath beginning approximately 2 weeks ago. Patient also complaining of dark stools. Denies chest pain.. Historical: - Allergies: 13:09 Codeine; ll1 13:09 PENICILLINS; ll1 - PMHx: 13:09 Atrial Fib; Diabetes - NIDDM; Hypertension; Parkinson's disease; ll1 - PSHx: 13:09 triple bypass; achilles tendon SX, L shoulder rotator cuff; ll1 - Immunization history:: Client reports receiving the 2nd dose of the Covid vaccine. - Social history:: Smoking status: Patient denies any tobacco usage or history of. ROS: 14:58 Constitutional: Positive for fatigue. jmm 14:58 Respiratory: Positive for shortness of breath. 14:58 All other systems are negative. Exam: 14:58 Constitutional: This is a well developed, well nourished patient who is awake, alert, jmm and in no acute distress. Head/Face: atraumatic. Eyes: EOMI, no conjunctival erythema appreciated ENT: Moist Mucus Membranes Neck: Trachea midline, Supple Chest/axilla: Normal chest wall appearance and motion. Cardiovascular: Regular rate and rhythm. No edema appreciated Respiratory: Normal respirations, no respiratory distress appreciated 14:58 Skin: General appearance color normal MS/ Extremity: Moves all extremities, no obvious deformities appreciated, no edema noted to the lower extremities Neuro: Awake and alert Psych: Behavior is normal, Mood is normal, Patient is cooperative and pleasant 14:58 Abdomen/GI: Inspection: abdomen appears normal, Bowel sounds: normal, Palpation: abdomen is soft and non-tender, in all quadrants, Rectal exam: Stool: guaiac positive, black, hemorrhoid(s). Vital Signs: 13:06 BP 117 / 81; Pulse 62; Resp 18; Temp 98.2(O); Pulse Ox 97% ; Weight 99.79 kg; Height 5 ll1 ft. 8 in. (172.72 cm); Pain 0/10; 15:38 BP 130 / 92; Pulse 63; Resp 16; Pulse Ox 100% on R/A; tp1 16:52 BP 111 / 42; Pulse 60; Resp 14; Pulse Ox 100% ; tp1 17:30 BP 100 / 49; Pulse 64; Resp 18; Pulse Ox 98% on R/A; tp1 20:30 BP 115 / 54; Pulse 62; Resp 18; Pulse Ox 97% on R/A; tp1 13:06 Body Mass Index 33.45 (99.79 kg, 172.72 cm) ll1 MDM: 14:59 Patient medically screened. [facility] 18:39 Data reviewed: vital signs, nurses notes. Counseling: I had a detailed discussion with conner the patient and/or guardian regarding: the historical points, exam findings, and any diagnostic results supporting the discharge/admit diagnosis, lab results, radiology results, the need for further work-up and treatment in the hospital. ED course: I discussed the patient with the GI whom will consult on the case. I discussed the patient with Kaveh Singh whom accepted the patient to Dr. Sharmaine thomas.. 09/19 14:58 Order name: Basic Metabolic Panel; Complete Time: 16:12 [facility] 09/19 14:58 Order name: CBC with Diff; Complete Time: 16:10 [facility] 09/19 14:58 Order name: LFT's; Complete Time: 16:12 [facility] 09/19 14:58 Order name: Magnesium; Complete Time: 16:12 [facility] 09/19 14:58 Order name: NT PRO-BNP; Complete Time: 16:12 [facility] 09/19 14:58 Order name: PT-INR; Complete Time: 16:10 [facility] 09/19 14:58 Order name: Troponin HS; Complete Time: 16:12 [facility] 09/19 14:58 Order name: XRAY Chest (1 view); Complete Time: 15:48 [facility] 09/19 14:59 Order name: COVID-19/FLU A+B; Complete Time: 16:52 [facility] 09/19 16:11 Order name: Type And Screen [facility] 09/19 17:16 Order name: Bb Add On bd 09/19 18:23 Order name: ABO/RH no charge; Complete Time: 18:27 [facility] 09/19 14:58 Order name: EKG; Complete Time: 15:01 [facility] 09/19 14:58 Order name: Cardiac monitoring; Complete Time: 15:40 [facility] 09/19 14:58 Order name: EKG - Nurse/Tech; Complete Time: 15:40 [facility] 09/19 14:58 Order name: IV Saline Lock; Complete Time: 15:40 [facility] 09/19 14:58 Order name: Labs collected and sent; Complete Time: 15:40 [facility] 09/19 14:58 Order name: O2 Per Protocol; Complete Time: 15:40 [facility] 09/19 14:58 Order name: O2 Sat Monitoring; Complete Time: 15:40 [facility] 09/19 16:11 Order name: Gown patient; Complete Time: 16:44 [facility] Administered Medications: 17:20 Drug: ProTONIX (pantoprazole) 80 mg Route: IVP; Site: right antecubital; tp1 20:32 Follow up: Response: No adverse reaction tp1 17:25 Drug: ProTONIX (pantoprazole) 8 mg/hr Route: IV; Rate: 25 ml/hr; Site: right tp1 antecubital; 21:01 Follow up: IV Status: Infusion continued upon admission tp1 20:34 Drug: Solu-CORTEF (hyrdoCORTISONE) 50 mg Route: IVP; Site: right antecubital; kr3 21:01 Follow up: Response: No adverse reaction tp1 20:38 Drug: Benadryl (diphenhydrAMINE) 12.5 mg Route: IVP; Site: right antecubital; kr3 21:01 Follow up: Response: No adverse reaction tp1 20:38 Drug: Tylenol 650 mg Route: PO; kr3 21:01 Follow up: Response: No adverse reaction tp1 Disposition Summary: 09/19/22 18:40 Hospitalization Ordered Hospitalization Status: Inpatient Admission alicia Provider: Schmid, Mohammad jmm Location: Telemetry/MedSur (Inpatient) jmm Condition: Stable jmm Problem: new jmm Symptoms: have improved jmm Bed/Room Type: Standard [facility] Room Assignment: 402(09/19/22 20:32) cg Diagnosis - GI Bleed/ Gastrointestinal hemorrhage, unspecified jmm - Anemia, unspecified jmm Forms: - Medication Reconciliation Form jmm - SBAR form jmm Addendum: 09/24/2022 04:22 Co-signature as Attending Physician, Dom Toscano MD I agree with the assessment and r t plan of care. Signatures: Dispatcher [employer] EDMS David Fermin PA PA jmm Garcia, Cindy RN RN cg Ida Segovia RN RN ll1 Marybeth Zhang RN RN tp1 Lynne Murrieta RN RN kr3 Dom Toscano MD MD rt Corrections: (The following items were deleted from the chart) 09/19 20:32 18:40 jmm cg
[2022-09-19] MEDS ORDERED: HYDROCORTISONE SUC 100 MG INJ ONE (20:23)
[2022-09-19] MEDS ORDERED: ACETAMINOPHEN 325 MG TABLET ONE (20:24)
[2022-09-19] MEDS ORDERED: DIPHENHYDRAMINE 12.5MG/5ML LIQ ONE (20:24)
[2022-09-19] MEDS ORDERED: DIPHENHYDRAMINE 50 MG/ML VIAL ONE (20:27)
[2022-09-19] MEDS: INSULIN -REGULAR HUMAN 50 UNIT/0.5 ML ML SQ SCH (21:15)
[2022-09-19] MEDS ORDERED: ONDANSETRON 4 MG/2 ML VIAL IV PRN (21:15)
[2022-09-19] MEDS: PANTOPRAZOLE INJ 80 MG in NA CHLORIDE 0.9% 250 ML IV SCH (21:15)
[2022-09-19 21:36] VITALS: BMI 33.3
[2022-09-19] MEDS ORDERED: NA CHLORIDE 0.9% 100 ML IV ONE (22:52)
[2022-09-20] MEDS: PANTOPRAZOLE INJ 80 MG in NA CHLORIDE 0.9% 250 ML IV SCH ×2 (02:42→17:25)
[2022-09-20] MEDS ORDERED: FUROSEMIDE 40 MG/4 ML VIAL IV ONE (03:49)
[2022-09-20 06:05] LABS: Absolute Lymphocytes (CBC) 0.6 K/uL (0.7-4.9); Hematocrit 27.5 % (39.6-49.0); Lymphocytes % 9.1 % (15.3-44.8); MCV 84.2 fL (80-100); RBC Red Blood Cell Count 3.27 M/uL (4.33-5.43)
[2022-09-20 06:25] LABS: Albumin 3.6 g/dL (3.4-5.0); Bilirubin Total 1.6 mg/dL (0.2-1.0); Protein, Total 6.1 g/dL (6.4-8.2)
[2022-09-20] MEDS: INSULIN -REGULAR HUMAN 50 UNIT/0.5 ML ML SQ SCH ×4 (07:30→20:04)
[2022-09-20] MEDS ORDERED: PNEUMOCOCCAL VACCINE 0.5 ML IMVAC ONE (08:00)
[2022-09-20] MEDS ORDERED: FUROSEMIDE 20 MG/ 2ML VIAL IV SCH (09:00)
[2022-09-20] MEDS ORDERED: NA CHLORIDE 0.9% 1,000 ML ONE (11:34)
[2022-09-20] MEDS ORDERED: propofoL 200 MG/20 ML VIAL IV ONE (12:13)
[2022-09-20] MEDS ORDERED: ALBUTEROL 2.5 MG/3 ML NEB SOL ONE (12:51)
--- NOTE | 2022-09-20 13:22 | EKG ---
Test Date: 2022-09-19 Test Time: 15:20:34 Associate Professor Of Management: TP MEASUREMENT RESULTS: Intervals: Rate: 66 NV: QRSD: 90 QT: 428 QTc: 448 [place]: P: NV: QRS: -49 T: 173 INTERPRETIVE STATEMENTS: Atrial fibrillation Left anterior fascicular block Nonspecific ST and T wave abnormality Abnormal ECG Compared to ECG 04/03/2022 06:00:55 ST (T wave) deviation now present Prolonged QT interval no longer present Electronically Signed On 09-20-22 13:21:15 [employer] (CAD) by Raoul Dailey
[2022-09-20 15:29] LABS: Potassium 4.8 mmol/L (3.5-5.1)
[2022-09-20 15:30] LABS: Absolute Lymphocytes (CBC) 0.9 K/uL (0.7-4.9); Lymphocytes % 8.5 % (15.3-44.8); MCV 81.8 fL (80-100); MPV 8.6 fL (7.6-11.3); RBC Red Blood Cell Count 3.54 M/uL (4.33-5.43)
--- NOTE | 2022-09-20 16:06 | RAD REPORT ---
EXAM DESCRIPTION: RAD - Chest Single View - 09/20/2022 3:47 pm CLINICAL HISTORY: COPD Chest pain. COMPARISON: Chest Single View dated 09/19/2022; Chest Single View dated 04/06/2022; Chest Single View dated 04/03/2022; Chest Pa And Lat (2 Views) dated 08/11/2021 FINDINGS: Portable technique limits examination quality. Mild pulmonary edema is seen. The heart is moderately enlarged in size with changes of a prior CABG. No displaced fractures. IMPRESSION: Mild CHF.
--- NOTE | 2022-09-20 16:56 | CON ---
Date of Consultation: 09/20/2022 Reason For Consultation: Elevated BUN and creatinine, fluid management. 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 Last seen in the office back in early June. The patient apparently had chronic leg swelling and shortness of breath. The patient had acute kidney injury secondary to over diuresis, was seen in the office in June. At that time, we decreased the Lasix as his creatinine was jumped up to 2.5. According to the patient, the patient started having some shortness of breath without increasing any swelling, but has decreased in his exertional tolerance. For that reason, gradually his exertional tolerance has been declining. For that reason, he reported to the hospital. The patient came to the hospital complaining from his shortness of breath, also the patient had some black stool and found to have significant drop in his hemoglobin down to 7.5. The patient denied taking any nonsteroidal, no IV contrast. Primary workup found to have elevation in creatinine up to 2.7, down GFR 23 with elevation in the BUN to 91. For that reason, we have been consulted. The patient again denied other changes in his medication. The patient complaining from orthopnea and decreased exertional tolerance with increased increase in leg swelling. Past Medical History: Includes; 1. Diabetes complicated with neuropathy, nephropathy, and retinopathy with nephrotic range proteinuria. 2. Hypertension. 3. Hyperlipidemia. 4. CAD status post CABG. Had echocardiogram back in December 2020 with normal ejection fraction. 5. Hypertension. 6. Parkinson disease. Allergies: TO CODEINE AND PENICILLIN. Past Surgical History: Includes CABG, rotator cuff surgery. Family History: Positive for diabetes and COPD. Social History: Denied smoking, denied drinking, denied drugs abuse. Review of Systems: Head and Neck: No red eye. No ear pain. GI: Has black stool. : No polyuria. No dysuria. Has foamy urine. Technical Report Writer: Not applicable. Respiratory: Has shortness of breath. Cardiovascular: Has orthopnea. Has leg swelling. Has decreased exertional tolerance. Neuro: Has neuropathy. Musculoskeletal: Generalized fatigue. Skin: No rash. Physical Examination: General: When I saw the patient; the patient lying in bed, slightly shortness of breath. Vital Signs: Blood pressure 131/49, pulse of 50, afebrile. Chest: Crackles bilateral. Heart: S1, S2. Systolic murmur. Abdomen: Obese. Could not appreciate any organomegaly. No guarding or rebound. Extremities: +1 edema, erythema with venous stasis change bilateral. Laboratory Data: WBC 6.5, H and H 8.7/27.5. Sodium 139, potassium 5, bicarb 17, BUN 87, creatinine 2.6, GFR 24, calcium 8.8. Troponin 9.1. Urinalysis; +1 protein, specific gravity 1.017. Current Medications: The patient on include Lasix 20 b.i.d., pantoprazole, insulin. Assessment And Plan: 1. Acute kidney injury on advanced chronic kidney disease, normal-sized kidney 10/10, nephrotic range proteinuria, over volume. I am going to go ahead and increase the Lasix to 40 mg b.i.d. and we will monitor the patient. I am going to go ahead and get chest x-ray for better evaluation for fluid status and we will monitor. 2. Hypertension, controlled, optimal. We will continue to utilize blood pressure for more diuresis. 3. 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 Serum protein electrophoresis was negative before back in December. Serology also was negative. I am going to keep avoiding any SHAHBAZ inhibitor or ARB for the time being. 4. Hyponatremia, dilutional. 5. Acidosis non-anion gap metabolic acidosis secondary to renal failure. I am going to start the patient on sodium bicarb oral. 6. Congestive heart failure with exacerbation. We will try to optimize the fluid status with diuresis. 7. Anemia secondary to gastrointestinal bleed. Continue PPI. I am going to send for anemia workup. Again, light chain disease has been ruled out. 8. Coronary artery disease with congestive heart failure exacerbation. Continue serial cardiac enzyme. Time spent examining the patient [id number], reviewing data, lab and radiology, discussing the case with the patient, discussing the case with count team clerk including nursing and hospitalist more than 65 minutes JT Voice ID: [id number] Report ID: [id number] [facility]
[2022-09-20 17:09] LABS: Blood Morphology Comment NOT SEEN (NOT SEEN); Platelet Estimate ADEQ; White Blood Cell Scan OK (OK)
[2022-09-20] MEDS: FUROSEMIDE 40 MG/4 ML VIAL IV SCH (17:26)
[2022-09-20] MEDS: SODIUM BICARB 325 MG TAB PO SCH (20:06)
--- NOTE | 2022-09-21 02:33 | OP ---
Surgeon: Justino Hawthorne MD Procedure Performed: Esophagogastroduodenoscopy. Indication For Procedure: Severe iron-deficiency anemia, suspected upper GI bleed. Plan For Anesthesia: Monitored anesthesia care. Complexity: Average. Technique: After obtaining informed consent from the patient and explaining risks and complications, which include but are not limited to bleeding, infection, perforation, and anesthesia complication, patient was placed in the left lateral position and sedation was given. From then on, the scope was advanced to the mouth and carefully guided up till the second portion of the duodenum. After complet ion of examination, all therapeutic maneuvers, scope and equipment were withdrawn and the procedure t erminated in a safe manner. Findings: Esophagus: No gross lesion in the entire esophagus. Stomach: Mild patchy erythema seen in the body and antrum; biopsies taken. A single, very small AVM that was not bleeding was seen in the gastric body. This was updated. Duodenum: In the duodenal bulb, another small red spot was seen. Due to suspicion of AVM, this was ablated as well. The second part of the duodenum appeared normal. Complications: None. Estimated Blood Loss: Minimal. Tolerance To Anesthesia: Excellent. Postoperative Diagnoses: Gastritis, small nonbleeding gastric arteriovenous malformations, status po st ablation. Plan: Continue pain management. Follow up in the GI Clinic. The patient has seen Dr. Cordova who pe rformed a recent colonoscopy done a few weeks ago. So, the patient can follow up with him or with us . Continue PPI. Advance diet to full liquids and discharge today or tomorrow. US/MODL Voice ID: [id number] Report ID: [id number]
[2022-09-21] MEDS: PANTOPRAZOLE INJ 80 MG in NA CHLORIDE 0.9% 250 ML IV SCH ×2 (03:56→08:30)
[2022-09-21 05:01] LABS: Absolute Lymphocytes (CBC) 0.9 K/uL (0.7-4.9); Hematocrit 28.6 % (39.6-49.0); Lymphocytes % 12.2 % (15.3-44.8); MCV 82.6 fL (80-100); MPV 8.2 fL (7.6-11.3); RBC Red Blood Cell Count 3.46 M/uL (4.33-5.43)
[2022-09-21 05:48] LABS: Albumin 3.7 g/dL (3.4-5.0); Bilirubin Total 1.5 mg/dL (0.2-1.0); Ferritin 27.7 ng/mL (26-388); Folic Acid, (Folate) 14.9 ng/mL (3.1-17.5); Magnesium 2.4 mg/dL (1.8-2.4); Phosphorus 3.9 mg/dL (2.5-4.9); Potassium 4.3 mmol/L (3.5-5.1); Uric Acid 5.3 mg/dL (3.5-7.2)
[2022-09-21 05:50] LABS: Thyroid Stimulating Hormone 4.39 uIU/mL (0.360-3.740)
[2022-09-21] MEDS: INSULIN -REGULAR HUMAN 50 UNIT/0.5 ML ML SQ SCH (07:30)
[2022-09-21] MEDS: FUROSEMIDE 40 MG/4 ML VIAL IV SCH (08:55)
[2022-09-21] MEDS: SODIUM BICARB 325 MG TAB PO SCH (08:55)
[2022-09-21 08:57] VITALS: BP 127/48
[2022-09-21] MEDS ORDERED: SOD FERRIC GLUC COMPLX/SUCROSE 125 MG in NA CHLORIDE 0.9% 100 ML IV SCH (09:00)
--- NOTE | 2022-09-21 09:00 | P.PN ---
Date of Service: 09/19/22 Subjective Patient down for EGD Physical Examination - Physical Exam General: Alert, In no apparent distress, Oriented x3 Respiratory: Clear to auscultation bilaterally, Normal air movement Cardiovascular: Regular rate/rhythm, Normal S1 S2, Edema Gastrointestinal: Normal bowel sounds, No tenderness Neurological: Normal gait, Normal speech, Normal strength at 5/5 x4 extr, Normal tone, Normal affect Assessment and Plan - Plan Assessment: Dyspnea on exertion, acute blood loss anemia secondary to upper GI bleed complicated with use of chronic anticoagulation Acute on chronic diastolic congestive heart failure Atrial fibrillation on chronic anticoagulation therapy KRISTI on CKD 4 Diabetes mellitus type 2insulin-dependent Hypertension Hyperlipidemia Plan: Dyspnea on exertion, acute blood loss anemia secondary to upper GI bleed complicated with use of chronic anticoagulation: NPO after midnight, give 2u PRBC now, monitor H/H. Gi consult, hold xarelto/asa. Continue protonix drip. Appreciate Gi input. Acute on chronic diastolic congestive heart failure: IV lasix, cardiology/nephrology consult. Atrial fibrillation on chronic anticoagulation therapy: Hold anticoagulation. m onitor on tele, rate controlled. KRISTI on CKD 4: Nephrology consulted. Diabetes mellitus type 2insulin-dependent: Q6H accucheck, SSI Hypertension: Continue home meds. Hyperlipidemia: Continue home meds.
[2022-09-21 09:36] VITALS: TEMP 98.3
--- NOTE | 2022-09-21 10:11 | P.DS ---
Discharge Date: 09/21/22 Disposition: ROUTINE DISCHARGE Discharge Condition: GOOD Reason for Admission: Upper GI bleed Consultations: Gastroenterology and cardiology Brief History of Present Illness: Pt is a 77-year-old male with history of A. fib on chronic anticoagulation with Xarelto, aspirin, CAD status post CABG, insulin-dependent diabetes, hypertension, hyperlipidemia and CKD presents the emergency department for dyspnea on exertion. Patient reports symptoms worsening over the course the last couple weeks he also reports dark stools the past 2 weeks. He was evaluated in the emergency department his labs were significant for mild creatinine 2.72 GFR 23 BUN 91 hemoglobin 7.5 Pierce crit 20.2 BNP 4189 high- sensitivity troponin 67.7 chest x-ray shows findings likely representing edema with small right pleural effusion. Patient was given 2 units packed red blood cells in the emergency department ED provider discussed case with GI who recommends admission. He was placed on Protonix drip. Hospital Course: Patient has done well during hospitalization. EGD showed gastritis. Patient is stable for discharge on Protonix twice a day. Cardiology recommends holding off on Xarelto and they will follow him up as an outpatient. At this time, patient is stable for discharge. Patient does have some acute renal insufficiency and uremia which may be related to GI bleed. Patient needs to keep himself hydrated well. Continue with nephrology follow-up as well. Vital Signs/Physical Exam: Temp Pulse Resp BP Pulse Ox 98.3 F 66 16 127/48 L 95 09/21/22 08:00 09/21/22 08:55 09/21/22 08:00 09/21/22 08:55 09/21/22 08:00 General: Alert, In no apparent distress, Oriented x3 Laboratory Data at Discharge: WBC 7.60 K/uL (4.3-10.9) 09/21/22 04:06 Hgb 9.4 g/dL (13.6-17.9) L 09/21/22 04:06 Hct 28.6 % (39.6-49.0) L 09/21/22 04:06 Plt Count 190 K/uL (152-406) 09/21/22 04:06 PT 14.5 SECONDS (9.5-12.5) H 09/19/22 15:31 INR 1.32 09/19/22 15:31 Sodium 138 mmol/L (136-145) 09/21/22 04:06 Potassium 4.3 mmol/L (3.5-5.1) 09/21/22 04:06 BUN 82 mg/dL (7-18) H 09/21/22 04:06 Creatinine 2.64 mg/dL (0.55-1.3) H 09/21/22 04:06 Glucose 135 mg/dL (74-106) H 09/21/22 04:06 Uric Acid 5.3 mg/dL (3.5-7.2) 09/21/22 04:06 Phosphorus 3.9 mg/dL (2.5-4.9) 09/21/22 04:06 Magnesium 2.4 mg/dL (1.8-2.4) 09/21/22 04:06 Total Bilirubin 1.5 mg/dL (0.2-1.0) H 09/21/22 04:06 AST 20 U/L (15-37) 09/21/22 04:06 ALT 28 U/L (12-78) 09/21/22 04:06 Alkaline Phosphatase 109 U/L (45-117) 09/21/22 04:06 Home Medications: Amlodipine [Norvasc*] 10 mg PO DAILY 05/12/18 Atorvastatin Calcium [Lipitor] 40 mg PO BEDTIME 05/12/18 Aspirin 1 tab PO DAILY 10/10/20 Doxazosin Mesylate 1 tab PO BEDTIME 10/10/20 Gabapentin 300 mg PO BEDTIME 10/10/20 L.acidoph,Paracasei, B.lactis [Probiotic] 1 cap PO DAILY 10/10/20 Furosemide [Lasix*] 40 mg PO DAILY 30 Days #30 tab 10/13/20 lisinopriL [Lisinopril] 40 mg PO DAILY 12/18/20 Dapagliflozin Propanediol [Farxiga] 1 tab PO DAILY 04/05/22 predniSONE [Prednisone*] 20 mg PO BID #11 tab 04/06/22 Carbidopa/Levodopa [Carbidopa-Levodopa 25-100 Tab] 2 tab PO TID 09/20/22 Hydralazine [Apresoline*] 25 mg PO TID 09/20/22 Insulin Glargine/Lixisenatide [Soliqua 100 Unit-33 Mcg/ml Pen] See Protocol SQ ACHS 09/20/22 Na Bicarb Tab [Sodium Bicarb 325 MG Tab*] 650 mg PO BID 09/20/22 Pramipexole [Mirapex*] 0.5 mg PO TID 09/20/22 Pantoprazole [Protonix Tab] 40 mg PO BID #60 tab 09/21/22 New Medications: Pantoprazole [Protonix Tab] 40 mg PO BID #60 tab Physician Discharge Instructions: -DC IV and DC home -Follow-up with PCP in 1 to 2 weeks -Follow-up with Cardiology, Nephrorology, and gastroenterology in 1 to 2 weeks -Please call Dr. Schmid at [phone] if any questions regarding hospital stay -Please call nursing station at [phone] if any nursing or medication questions -Return to the emergency room if symptoms worsen Diet: AHA Activity: Fall precautions Followup: Manuel Gandhi MD [Primary Care Provider] - Time spent managing pt's care (in minutes): 35
[2022-09-21 11:21] VITALS: O2SAT 95
--- NOTE | 2022-09-24 07:06 | CON ---
Date of Consultation: 09/21/2022 Reason For Consultation: The patient with upper GI bleed in the setting of atrial fibrillation, on X arelto. History Of Present Illness: Mr. Swartz is 77, has a history of CABG, atrial fibrillation, diabetes, hyp ertension, and parkinsonism, came in with upper GI bleed, hemoglobin was 7.5. He is now status post ablation of gastric bleed by Dr. Hawthorne. He has AVMs by endoscopy. He is asymptomatic from a card iovascular standpoint. His Xarelto has been held. He denied any cardiac symptoms. He has received transfusions. Past Medical History: Includes CABG, atrial fibrillation, diabetes, hypertension, and parkinsonism. Allergies: TO CODEINE AND PENICILLIN. Review of Systems: Negative. Social History: Negative. Family History: Negative. Physical Examination: Vital Signs: Stable. He was in atrial fibrillation, rate was 64. HEENT: Negative. Neck: Supple with no bruit. Chest: Clear. Cardiac: Exam revealed atrial fibrillation. Abdomen: Benign. Extremities: Revealed no clubbing, cyanosis, or edema. Skin: Dry and intact. Neurologically: He was nonfocal. Pulses were present distally bilaterally. Medications: Include aspirin, Lipitor, Xarelto, Norvasc, Sinemet, insulin, lisinopril, Farxiga, Lasi x, hydralazine, Neurontin, and doxazosin. Diagnostic Data: His creatinine is 2.76 . Troponin was 91. Hemoglobin is 7.5. Impression And Plan: The patient with gastrointestinal bleed secondary to arteriovenous malformation , status post ablation. I think we should hold the Xarelto. Continue baby aspirin. He has chronic atrial fibrillation. We will consider him for a Watchman in the very near future. Cardiac vargas, he has a history of coronary artery bypass graft, atrial fibrillation. He is asymptomatic in that regar d. His elevated troponin is secondary to demand ischemia from anemia. Has diabetes, hypertension th at are all controlled, Parkinsonism is well controlled. He has significant renal insufficiency. We will have to follow very closely. From my standpoint, he can go home. Hold Xarelto. Continue the r est of the medicine. Continue baby aspirin. I will see him in the office soon. I will set him up f or a Watchman. SHAYNA/TIFFANIE Voice ID: [id number] Report ID: [id number]
== END 2022-09-21 12:26 | disposition home or self-care (01) | DRG 377 ==
LOC: ER 12:39 → ERHOLD 18:23 → 4TH 21:07
PROVIDERS: ADMIT Hospitalist; ATTEND Hospitalist
PROC: 30233N1 Transfusion of Nonautologous Red Blood Cells into Peripheral Vein, Percutaneous Approach (ICD-10-PCS; 2022-09-19)
PROC: 0DB78ZX Excision of Stomach, Pylorus, Via Natural or Artificial Opening Endoscopic, Diagnostic (ICD-10-PCS; 2022-09-20)
PROC: 0DB68ZX Excision of Stomach, Via Natural or Artificial Opening Endoscopic, Diagnostic (ICD-10-PCS; principal; 2022-09-20 14:30)
DX: K29.71 Gastritis, unspecified, with bleeding (principal); I50.33 Acute on chronic diastolic (congestive) heart failure; N17.9 Acute kidney failure, unspecified; I13.0 Hypertensive heart and chronic kidney disease with heart failure and stage 1 through stage 4 chronic kidney disease, or unspecified chronic kidney disease; D62 Acute posthemorrhagic anemia; N18.4 Chronic kidney disease, stage 4 (severe); I24.8 Other forms of acute ischemic heart disease; E87.1 Hypo-osmolality and hyponatremia; E87.20 Acidosis, unspecified; K31.811 Angiodysplasia of stomach and duodenum with bleeding; I48.91 Unspecified atrial fibrillation; E11.22 Type 2 diabetes mellitus with diabetic chronic kidney disease; E11.40 Type 2 diabetes mellitus with diabetic neuropathy, unspecified; D63.1 Anemia in chronic kidney disease; E78.5 Hyperlipidemia, unspecified; G20 Parkinson's disease; I25.10 Atherosclerotic heart disease of native coronary artery without angina pectoris; J44.9 Chronic obstructive pulmonary disease, unspecified; N28.9 Disorder of kidney and ureter, unspecified; Z88.5 Allergy status to narcotic agent; Z88.0 Allergy status to penicillin; Z79.4 Long term (current) use of insulin; Z95.0 Presence of cardiac pacemaker; Z79.52 Long term (current) use of systemic steroids; Z79.01 Long term (current) use of anticoagulants; Z79.82 Long term (current) use of aspirin; Z79.899 Other long term (current) drug therapy; Z20.822 Contact with and (suspected) exposure to COVID-19
CPT/HCPCS: 0240U; 36415; 36430; 71045; 80048; 80053; 80069; 80076; 82550; 82607; 82728; 82746; 82947; 83540; 83735; 83880; 83970; 84439; 84443; 84466; 84484; 84550; 85025; 85610; 86850; 86900; 86901; 88305; 88312; 93005; 96365; 96366; 96375; 99285; C9113; J1200; J1720; J1940; J2704; J2916; J7030; J7050; J7613; P9016; Q0163

== ENCOUNTER 2022-10-10 13:45 | Inpatient (IN) | payer OTHER ==
--- OUTSIDE RECORDS SUMMARY | 2022-10-10 13:48 | XMS REPORT | Continuity of Care Document ---
:1945 Author Organization [facility] t Address [address] [place] [address] Care Team Providers Name Role Phone [phone] Primary Care Physician Unavailable JOSEE LI Attending Clinician Unavailable HE TAVAREZ Attending Clinician Unavailable JONNY TODD Attending Clinician Unavailable SHAWNEE HERNANDEZ Attending Clinician Unavailable FADIA RIVERA Attending Clinician Unavailable Payers Payer Name Policy Type Policy Number Effective Date Expiration Date S sugar [employer] MED[employer] PPO [id number] 2021 00:00:00 Problems This patient has no [...] Department ID 2022-08-02 2022-08-02 Outpatient NATHANAEL MDA [id number] MD 10:40:58 23:59:00 Augusto o n 2022-08-02 2022-08-02 Outpatient BHUPENDRANATHANAEL EASTMAN MDA [id number] MD 13:29:31 13:29:31 JOSEE grider 2022-08-02 2022-08-02 Outpatient MDA MDA [id number] MD 12:59:37 12:59:37 Augusto o n 2022-08-02 2022-08-02 Outpatient NATHANAEL MDA [id number] MD 11:29:26 11:29:26 Augusto o n 2022-08-02 2022-08-02 Outpatient EL NATHANAEL TAVAREZ MDA [id number] MD 09:12:03 10:12:28 EH grider 2021-08-03 2021-08-03 Outpatient PEREZ, MDA MDA [id number] 11:01:39 23:59:00 JONNY Casas o cheo 2021-08-03 2021-08-03 Outpatient PEREZ, MDA MDA [id number] 13:29:14 13:29:14 JONNY Casas o cheo 2021-08-03 2021-08-03 Outpatient [facility], MDA MDA [id number] MD 12:46:21 13:24:31 EH grider 2021-08-03 2021-08-03 Outpatient PEREZ, MDA MDA [id number] 11:00:35 11:00:35 JONNY grider 2021-08-03 2021-08-03 Outpatient PEREZ, MDA MDA [id number] 09:18:41 09:18:41 JONNY grider 2020-08-03 2020-08-[address] [facility], MDA MDA [id number] 07:25:55 06:29:04 SHAWNEE grider 2020-08-02 2020-08-02 Outpatient RIVERA, FADIA MDA MDA [id number] 12:09:49 23:59:00 Augusto o cheo 2020-08-02 2020-08-02 Outpatient RIVERA, FADIA MDA MDA [id number] 09:30:00 12:08:00 Augusto o cheo 2020-08-02 2020-08-02 Outpatient RIVERA FADIA MDA MDA [id number] 09:59:38 09:59:38 Augusto o cheo 2020-08-02 2020-08-02 Outpatient RIVERA FADIA MDA MDA [id number] 00:00:00 00:00:00 Augusto o cheo Results This patient has no known results.
[2022-10-10 14:32] LABS: Absolute Lymphocytes (CBC) 0.4 K/uL (0.7-4.9); Hematocrit 28.1 % (39.6-49.0); Lymphocytes % 3.5 % (15.3-44.8); MCV 81.4 fL (80-100); MPV 8.2 fL (7.6-11.3); RBC Red Blood Cell Count 3.45 M/uL (4.33-5.43)
--- NOTE | 2022-10-10 14:36 | RAD REPORT ---
EXAM DESCRIPTION: Barbara Single View10/10/2022 2:26 pm CLINICAL HISTORY: Shortness of breath COMPARISON: September 20, 2022 FINDINGS: The lungs appear clear of acute infiltrate. The heart is moderately enlarged. Post surgical changes involve the chest IMPRESSION: No acute abnormalities displayed
[2022-10-10] MEDS ORDERED: NA CHLORIDE 0.9% 1,000 ML ONE (14:37)
[2022-10-10 14:47] LABS: Albumin 3.6 g/dL (3.4-5.0); Bilirubin Total 0.8 mg/dL (0.2-1.0); Potassium 4.5 mmol/L (3.5-5.1); Protein, Total 5.9 g/dL (6.4-8.2); Troponin High Sensitivity 46.1 pg/mL (<58.9)
[2022-10-10 15:36] LABS: Protime INR 1.2
[2022-10-10] MEDS ORDERED: LIDOCAINE VISCOUS 2% SOLN 15 ML UDC ONE (16:09)
[2022-10-10 16:22] LABS: SARS-COV-2 RT PCR NEGATIVE (NEGATIVE)
[2022-10-10 16:48] LABS: Urine Bacteria None Seen /HPF (<20); Urine RBC <5 /HPF (None Seen)
--- NOTE | 2022-10-10 18:58 | RAD REPORT ---
EXAM DESCRIPTION: CT - Chest Abd Pelvis Wo Con - 10/10/2022 6:42 pm CLINICAL HISTORY: Shortness of breath/hypotension/abdominal pain COMPARISON: March 2022 TECHNIQUE: Computed axial tomography of the chest, abdomen and pelvis was obtained. Oral contrast wa s given. IV contrast was not requested. All CT scans are performed using dose optimization technique as appropriate and may include automated exposure control or mA/KV adjustment according to patient size. FINDINGS: The evaluation of mediastinum, kylee, vessels and solid organs is limited secondary to the lack of IV contrast administration Mild patchy opacities lower lobes. No mediastinal or hilar lymphadenopathy is seen. Coronary arterial calcifications. Cardiomegaly Small right pleural effusion. A pericardial effusion is not seen. The liver, pancreas, adrenals and kidneys appear grossly normal Mild splenomegaly There is no evidence of diverticulitis. A normal appendix Pepe catheter within the bladder. Small to moderate umbilical hernia IMPRESSION: Mild patchy opacities lower lobes may indicate mild pneumonia or pneumonitis Mild splenomegaly
--- NOTE | 2022-10-10 19:13 | EDPHYS ---
Physician Documentation [facility] Name: Spenser Swartz Jr Age: 77 yrs Sex: Male : 1945 Arrival Date: 10/10/2022 Time: 13:46 Bed 5 Private MD: ED Physician Dom Toscano HPI: 10/10 14:10 This 77 yrs old Male presents to ER via EMS with complaints of Fever, Shortness Of jh7 Breath. 14:10 The patient reports fever, that was measured at 102 degrees Fahrenheit. Onset: The jh7 symptoms/episode began/occurred today. 16:56 Associated signs and symptoms: Pertinent positives: cough, shortness of breath, jh7 Pertinent negatives: chest pain. 77-year-old male presents for shortness of breath and fever. gave 1300 mg of Tylenol prior to arrival. History of triple bypass and blood transfusion. States his PCP is Dr. Gandhi. Also reports history of A. fib and Parkinson's. Patient was 90% O2 saturation on scene and increased to 96% with 2 L of oxygen.. Historical: - Allergies: 14:08 Codeine; kr3 14:08 PENICILLINS; kr3 - PMHx: 14:08 Atrial Fib; Diabetes - NIDDM; Parkinson's disease; Hypertension; kr3 - PSHx: 14:08 achilles tendon SX, L shoulder rotator cuff; triple bypass; kr3 - Immunization history:: Adult Immunizations up to date. - Social history:: Smoking status: Patient/guardian denies using tobacco, the patient reports quitting approximately 50 years ago. ROS: 16:59 Eyes: Negative for injury, pain, redness, and discharge, ENT: Negative for injury, jh7 pain, and discharge, Neck: Negative for injury, pain, and swelling, Cardiovascular: Negative for chest pain, palpitations, and edema, Abdomen/GI: Negative for abdominal pain, nausea, vomiting, diarrhea, and constipation, MS/Extremity: Negative for injury and deformity, Skin: Negative for injury, rash, and discoloration, Neuro: Negative for headache, weakness, numbness, tingling, and seizure. 16:59 Constitutional: Positive for chills, fever. 16:59 Respiratory: Positive for shortness of breath, at rest. Negative for wheezing. 16:59 All other systems are negative. Exam: 14:38 Constitutional: This is a well developed, well nourished patient who is awake, alert, jh7 and in no acute distress. Head/Face: Normocephalic, atraumatic. Eyes: Pupils equal round and reactive to light, extra-ocular motions intact. Lids and lashes normal. Conjunctiva and sclera are non-icteric and not injected. Cornea within normal limits. Periorbital areas with no swelling, redness, or edema. Neck: Trachea midline, no thyromegaly or masses palpated, and no cervical lymphadenopathy. Supple, full range of motion without nuchal rigidity, or vertebral point tenderness. No Meningismus. 14:38 Abdomen/GI: Soft, non-tender, with normal bowel sounds. No distension or tympany. No guarding or rebound. No evidence of tenderness throughout. Skin: Warm, dry with normal turgor. Normal color with no rashes, no lesions, and no evidence of cellulitis. MS/ Extremity: Pulses equal, no cyanosis. Neurovascular intact. Full, normal range of motion. Neuro: Awake and alert, GCS 15, oriented to person, place, time, and situation. Motor strength 5/5 in all extremities. Sensory grossly intact. Normal gait. 14:38 Cardiovascular: Rate: normal, Rhythm: irregularly irregular, Pulses: Pulses are 2+ in right radial artery and left radial artery. 14:38 Cardiovascular: Edema: 3+ edema to level of left midcalf, left ankle, left foot, right midcalf, right ankle and right foot. 14:38 Respiratory: mild respiratory distress is noted, Breath sounds: decreased breath sounds, are located in both bases. Vital Signs: 14:03 BP 123 / 43; Pulse 67; Resp 27; Temp 101.8(A); Pulse Ox 99% on 2 lpm NC; Weight 99.79 kr3 kg; Height 5 ft. 8 in. (172.72 cm); 14:33 BP 90 / 40; Pulse 52; Resp 15 S; Temp 100.5(O); Pulse Ox 99% on 2 lpm NC; jl7 15:30 BP 112 / 43; Pulse 45; Resp 19; Pulse Ox 100% ; jl7 16:45 BP 121 / 57; Pulse 58; Resp 15; Temp 99.9(C); Pulse Ox 100% on 2 lpm NC; jl7 17:07 BP 98 / 47; Pulse 51; Resp 15; Temp 99.5(C); Pulse Ox 94% ; jl7 18:00 BP 137 / 54; Pulse 61; Resp 17; Pulse Ox 99% ; jl7 19:00 BP 120 / 54; Pulse 69; Resp 15; Pulse Ox 100% ; jl7 20:27 BP 120 / 66; Pulse 55; Resp 19 S; Temp 99.1(C); Pulse Ox 100% on 2 lpm NC; as6 14:03 Body Mass Index 33.45 (99.79 kg, 172.72 cm) kr3 MDM: 13:50 Patient medically screened. [facility] 19:11 Post IV fluid administration reassessment for Sepsis: Client not prescribed the 30 jh7 mL/kg IVF due to: concern for fluid overload. concern for heart failure. blood pressure responded with lesser volume. Amount of IVF prescribed: 1000. 19:16 Differential diagnosis: viral Infection, bacterial infection, pneumonia UTI, Influenza, jh7 CHF exacerbation, pulmonary embolism. Data reviewed: vital signs, nurses notes, lab test result(s), EKG, radiologic studies, CT scan, plain films. Data interpreted: shelter monitor: rate is 59 beats/min, rhythm is atrial fibrillation, with no ectopy, Interpretation: atrial fibrillation. Counseling: I had a detailed discussion with the patient and/or guardian regarding: the historical points, exam findings, and any diagnostic results supporting the discharge/admit diagnosis, the need for further work-up and treatment in the hospital. Response to treatment: the patient's symptoms have markedly improved after treatment, Blood pressure normalized after 1 L fluid bolus, hypoxia improved after oxygen therapy. ED course: The patient will be admitted for septic shock. Admission discussed with Kaveh Singh NP. Severe sepsis criteria met due to source of infection being pneumonia, temperature of greater than 100.9, respiratory rate 27, and a documented MAP less than 65. Septic shock criteria met due to severe sepsis criteria being met and to documented MAPs less than 65. Blood pressure improved after 1 L bolus given. Additional fluids were not given due to history of CHF and bilateral 3+ pitting edema in lower extremities.. 10/10 13:54 Order name: Blood Culture Adult (2) [facility] 10/10 13:54 Order name: CBC with Diff; Complete Time: 14:37 [facility] 10/10 13:54 Order name: CMP; Complete Time: 14:59 [facility] 10/10 13:54 Order name: Lactate w/ 2H reflex if indic.; Complete Time: 14:59 [facility] 10/10 13:54 Order name: Protime (+inr); Complete Time: 15:53 [facility] 10/10 13:54 Order name: Ptt, Activated; Complete Time: 15:53 [facility] 10/10 13:54 Order name: Urine Culture [facility] 10/10 13:54 Order name: Urine Microscopic Only; Complete Time: 16:54 [facility] 10/10 13:54 Order name: Troponin High Sensitivity; Complete Time: 14:59 [facility] 10/10 13:55 Order name: NT PRO-BNP; Complete Time: 14:59 [facility] 10/10 15:00 Order name: COVID-19/FLU A+B; Complete Time: 16:25 [facility] 10/10 15:05 Order name: Glucose, Ancillary Testing; Complete Time: 15:14 [facility] 10/10 16:02 Order name: D-Dimer; Complete Time: 16:43 [facility] 10/10 16:02 Order name: Procalcitonin; Complete Time: 17:17 [facility] 10/10 13:54 Order name: Chest Single View XRAY; Complete Time: 14:37 [facility] 10/10 13:54 Order name: EKG; Complete Time: 13:55 [facility] 10/10 13:54 Order name: Accucheck; Complete Time: 14:38 [facility] 10/10 13:54 Order name: Cardiac monitoring; Complete Time: 14:38 [facility] 10/10 13:54 Order name: EKG - Nurse/Tech; Complete Time: 14:38 [facility] 10/10 13:54 Order name: IV Saline Lock - Large Bore; Complete Time: 14:38 [facility] 10/10 13:54 Order name: Labs collected and sent; Complete Time: 14:38 [facility] 10/10 13:54 Order name: O2 Per Protocol; Complete Time: 14:38 [facility] 10/10 13:54 Order name: O2 Sat Monitoring; Complete Time: 14:38 [facility] 10/10 13:54 Order name: Vital Signs; Complete Time: 14:38 [facility] 10/10 17:54 Order name: CT Chest Abdomen Pelvis W/O Contrast; Complete Time: 19:00 [facility] 10/10 16:01 Order name: My; Complete Time: 16:38 jh7 EC:38 Rate is 62 beats/min. Rhythm is irregularly irregular. Left axis deviation noted. QRS [facility] interval is normal at 0.88 msec. QT interval is normal at 418 msec. Clinical impression: Atrial Fibrillation. Administered Medications: 14:38 Drug: NS 0.9% 1000 ml Route: IV; Rate: 1 bolus; Site: left forearm; jl7 15:30 Follow up: Response: No adverse reaction; IV Status: Completed infusion; IV Intake: jl7 1000ml 17:18 Not Given (Physician Discretion): Lasix (furosemide) 40 mg IVP once; give over 2 minutesj7 19:40 Drug: AZITHromycin 500 mg Route: IVPB; Infused Over: 1 hrs; Site: left forearm; as6 20:26 Follow up: Response: No adverse reaction; IV Status: Completed infusion; IV Intake: as6 250ml 19:40 Drug: Rocephin (cefTRIAXone) 1 grams Route: IV; Rate: 1 calculated rate; Site: left as6 forearm; 20:26 Follow up: Response: No adverse reaction; IV Status: Completed infusion; IV Intake: [id number] Disposition: 10/11 12:35 Co-signature as Attending Physician, Dom Toscano MD I agree with the assessment and rt plan of care. Disposition Summary: 10/10/22 19:13 Hospitalization Ordered Hospitalization Status: Inpatient Admission [facility] Provider: Luis Irving [facility] Condition: Stable [facility] Problem: new [facility] Symptoms: have improved [facility] Bed/Room Type: Standard [facility] Room Assignment: [facility](10/10/22 19:47) 1 Diagnosis - Severe sepsis with septic shock [facility] Forms: - Medication Reconciliation Form [facility] - SBAR form [facility] Critical care time excluding procedures: 10/10 19:16 Critical care time: Bedside Care: 20 minutes, Consultation: 10 minutes. Total time: 30 [facility] minutes Signatures: Dispatcher [employer] Ashlee Wick RN RN jl7 Shelby Monsivais RN RN eb1 Dave Gamboa RN RN as6 Cynthia Joseph FNP [employer] 7 Lynne Murrieta RN RN kr3 Dom Toscano MD MD rt Corrections: (The following items were deleted from the chart) 19:31 16:59 Respiratory: mild respiratory distress is noted, Breath sounds: decreased breath jh7 sounds, are located in both bases, jh7 19:31 16:59 Constitutional: This is a well developed, well nourished patient who is awake, jh7 alert, and in no acute distress. Head/Face: Normocephalic, atraumatic. Eyes: Pupils equal round and reactive to light, extra-ocular motions intact. Lids and lashes normal. Conjunctiva and sclera are non-icteric and not injected. Cornea within normal limits. Periorbital areas with no swelling, redness, or edema. Neck: Trachea midline, no thyromegaly or masses palpated, and no cervical lymphadenopathy. Supple, full range of motion without nuchal rigidity, or vertebral point tenderness. No Meningismus. jh7 19:31 16:59 Cardiovascular: Rate: normal, Rhythm: irregularly irregular, Pulses: Pulses are jh7 2+ in right radial artery and left radial artery. jh7 19:31 16:59 Cardiovascular: Edema: 3+ edema to level of left midcalf, left ankle, left foot, jh7 right midcalf, right ankle and right foot, jh7 19:31 16:59 Abdomen/GI: Soft, non-tender, with normal bowel sounds. No distension or tympany. jh7 No guarding or rebound. No evidence of tenderness throughout. Skin: Warm, dry with normal turgor. Normal color with no rashes, no lesions, and no evidence of cellulitis. MS/ Extremity: Pulses equal, no cyanosis. Neurovascular intact. Full, normal range of motion. Neuro: Awake and alert, GCS 15, oriented to person, place, time, and situation. Motor strength 5/5 in all extremities. Sensory grossly intact. Normal gait. jh7 19:47 19:13 jh7 eb1
--- NOTE | 2022-10-10 19:13 | ER ---
Nurse's Notes [facility] Name: Spenser Swartz Jr Age: 77 yrs Sex: Male : 1945 Arrival Date: 10/10/2022 Time: 13:46 Bed 5 Private MD: Diagnosis: Severe sepsis with septic shock Presentation: 10/10 14:03 Chief complaint: EMS states: toned out for SOB, patient was in the low 90 upon arrival. kr3 patients temp was 101.4 30 minutes after gave 1300 mg of tylenol. Applied 2 LPM NC and patients saturation came up to the high 90's. Coronavirus screen: Vaccine status: Patient reports receiving the 2nd dose of the covid vaccine. Client denies travel out of the [place] in the last 14 days. Ebola Screen: Patient denies travel to an Ebola-affected area in the 21 days before illness onset. Initial Sepsis Screen: Does the patient meet any 2 criteria? RR > 20 per min. Temp <36.0*C (96.8*F)) or > 38.3*C (100.9*F). Yes Does the patient have a suspected source of infection? No. Patient's initial sepsis screen is negative. 14:03 Method Of Arrival: EMS kr3 14:08 Risk Assessment: Do you want to hurt yourself or someone else? Patient reports no kr3 desire to harm self or others. Onset of symptoms. Onset of symptoms was October 10, 2022. 14:08 Acuity: AMA 3 kr3 14:09 Acuity: AMA 2 iw Triage Assessment: 14:09 General: Appears distressed, comfortable, Behavior is calm, cooperative, appropriate kr3 for age. Historical: - Allergies: 14:08 Codeine; kr3 14:08 PENICILLINS; kr3 - PMHx: 14:08 Atrial Fib; Diabetes - NIDDM; Parkinson's disease; Hypertension; kr3 - PSHx: 14:08 achilles tendon SX, L shoulder rotator cuff; triple bypass; kr3 - Immunization history:: Adult Immunizations up to date. - Social history:: Smoking status: Patient/guardian denies using tobacco, the patient reports quitting approximately 50 years ago. Screenin:30 [facility] ED Fall Risk Assessment (Adult) History of falling in the last 3 months, jl7 including since admission No falls in past 3 months (0 pts) Confusion or Disorientation No (0 pts) Intoxicated or Sedated No (0 pts) Impaired Gait Yes (1 pt) Mobility Assist Device Used No (0 pt) Altered Elimination Yes (1 pt) Score/Fall Risk Level 0 - 2 = Low Risk Oriented to surroundings, Maintained a safe environment, Assessed \T\ reinforced patient's understanding of fall precautions, Hourly rounding (assess needs \T\ fall precautionary measures) done. Abuse screen: Denies threats or abuse. Denies injuries from another. Nutritional screening: No deficits noted. Tuberculosis screening: No symptoms or risk factors identified. Assessment: 14:30 General: Appears in no apparent distress. uncomfortable, ill, obese, unkempt, Behavior jl7 is calm, cooperative, drowsy. Pain: Denies pain. Neuro: Level of Consciousness is obeys commands, lethargic, Oriented to person, place, time. Cardiovascular: Rhythm is irregular. Respiratory: Airway is patent Respiratory effort is even, unlabored, Respiratory pattern is regular, symmetrical. GI: Abdomen is round distended. Derm: Skin is pink, warm \T\ dry. 15:30 Reassessment: Patient appears in no apparent distress at this time. No changes from jl7 previously documented assessment. Patient and/or family updated on plan of care and expected duration. Pain level reassessed. Pt remains drowsy and oriented. 16:30 Reassessment: Patient appears in no apparent distress at this time. No changes from jl7 previously documented assessment. Vital Signs: 14:03 BP 123 / 43; Pulse 67; Resp 27; Temp 101.8(A); Pulse Ox 99% on 2 lpm NC; Weight 99.79 kr3 kg; Height 5 ft. 8 in. (172.72 cm); 14:33 BP 90 / 40; Pulse 52; Resp 15 S; Temp 100.5(O); Pulse Ox 99% on 2 lpm NC; jl7 15:30 BP 112 / 43; Pulse 45; Resp 19; Pulse Ox 100% ; jl7 16:45 BP 121 / 57; Pulse 58; Resp 15; Temp 99.9(C); Pulse Ox 100% on 2 lpm NC; jl7 17:07 BP 98 / 47; Pulse 51; Resp 15; Temp 99.5(C); Pulse Ox 94% ; jl7 18:00 BP 137 / 54; Pulse 61; Resp 17; Pulse Ox 99% ; jl7 19:00 BP 120 / 54; Pulse 69; Resp 15; Pulse Ox 100% ; jl7 20:27 BP 120 / 66; Pulse 55; Resp 19 S; Temp 99.1(C); Pulse Ox 100% on 2 lpm NC; as6 14:03 Body Mass Index 33.45 (99.79 kg, 172.72 cm) kr3 ED Course: 13:46 Patient arrived in ED. ph 13:50 [facility]. jh7 13:50 Dom Toscano MD is Attending Physician. jh7 14:00 Initial lab(s) drawn, by me, sent to lab. First set of blood cultures drawn. iw 14:02 Ashlee Panda RN is Primary Nurse. jl7 14:07 Inserted saline lock: 20 gauge in right antecubital area, using aseptic technique. iw Blood collected. 14:07 Maintain EMS IV. Dressing intact. Site clean \T\ dry. Gauge \T\ site: 18LAC . iw 14:08 Triage completed. kr3 14:09 Arm band placed on left wrist. Patient placed in an exam room, on a stretcher. kr3 14:15 Patient has correct armband on for positive identification. Placed in gown. Bed in low jl7 position. Call light in reach. Side rails up X2. Client placed on continuous cardiac and pulse oximetry monitoring. NIBP monitoring applied. 14:28 Chest Single View XRAY In Process Unspecified. EDMS 14:40 EKG done, by ED staff, reviewed by Cynthia LYNN. jl7 16:30 Urine collected: Pepe catheter specimen, clear. Pepe cath inserted, using sterile jl7 technique, 16 Fr., by wi, balloon inflated, urine specimen collected. returned clear yellow urine. Patient tolerated well. 17:05 No provider procedures requiring assistance completed. Patient admitted, IV remains in jl7 place. intact, No redness/swelling at site. 18:44 CT Chest Abdomen Pelvis W/O Contrast In Process Unspecified. EDMS 19:12 Luis Irving MD is Hospitalizing Provider. jh7 Administered Medications: 14:38 Drug: NS 0.9% 1000 ml Route: IV; Rate: 1 bolus; Site: left forearm; jl7 15:30 Follow up: Response: No adverse reaction; IV Status: Completed infusion; IV Intake: jl7 1000ml 17:18 Not Given (Physician Discretion): Lasix (furosemide) 40 mg IVP once; give over 2 minutesjh7 19:40 Drug: AZITHromycin 500 mg Route: IVPB; Infused Over: 1 hrs; Site: left forearm; as6 20:26 Follow up: Response: No adverse reaction; IV Status: Completed infusion; IV Intake: as6 250ml 19:40 Drug: Rocephin (cefTRIAXone) 1 grams Route: IV; Rate: 1 calculated rate; Site: left as6 forearm; 20:26 Follow up: Response: No adverse reaction; IV Status: Completed infusion; IV Intake: [id number] Medication: 16:45 VIS not applicable for this client. jl7 Intake: 15:30 IV: 1000ml; Total: 1000ml. jl7 20:26 IV: 10ml; Total: 1010ml. as6 20:26 IV: 250ml; Total: 1260ml. as6 Outcome: 19:13 Decision to Hospitalize by Provider. jh7 20:26 Admitted to Med/surg accompanied by tech, via stretcher, room 232, with oxygen, with as6 chart, Report called to Rafa FREEMAN 20:26 Condition: stable 20:26 Instructed on the need for admit. 20:28 Patient left the ED. as6 Signatures: Dispatcher [employer] EDMS Virginie Cole RN RN iw Hall, Patricia, RN RN ph Leal, Jahala, RN RN jl7 Slawson, Ashby, RN RN as6 Cynthia Joseph FNP [employer] 7 Lynne Murrieta RN RN kr3 Corrections: (The following items were deleted from the chart) 17:00 14:33 BP 154 / 84; Pulse 87bpm; Resp 15bpm; Spontaneous; Pulse Ox 99% 2 lpm Nasal jl7 Cannula; Temp 100.5F Oral; jl7
[2022-10-10] MEDS ORDERED: CEFTRIAXONE 1000 MG/VIAL ONE (19:25)
[2022-10-10] MEDS ORDERED: AZITHROMYCIN 500 MG INJ IVPB ONE (19:25)
[2022-10-10] MEDS ORDERED: NA CHLORIDE 0.9% 250 ML ONE (19:25)
--- NOTE | 2022-10-10 20:24 | P.HP ---
Certification for Inpatient Patient admitted to: Inpatient With expected LOS: >2 Midnights Patient will require the following post-hospital care: None Practitioner: I am a practitioner with admitting privileges, knowledge of patient current condition, hospital course, and medical plan of care. Services: Services provided to patient in accordance with Admission requirements found in Title 42 Section 412.3 of the Code of Federal Regulations Patient History Date of Service: 10/10/22 Reason for admission: Septic shock, pneumonia History of Present Illness: 77-year-old male with history of atrial fibrillation, previously on anticoagulation but recently discontinued after GI bleed, CAD status post CABG, insulin-dependent diabetes, hypertension, hyperlipidemia, Parkinson's, CKD 4 presents the emergency department for shortness of breath, fever. He reports feeling short of breath last couple weeks but began running fever today. He was evaluated in the emergency department his labs were significant for white blood cell count 10.7 hemoglobin 9.1 hematocrit 28.1 creatinine 2.73 GFR 23 glucose 188 BNP 4218 procalcitonin 0.19 urine negative for UTI chest x-ray negative for acute findings CT chest abdomen pelvis without contrast was performed which revealed mild patchy opacities lower lobes and indicate mild pneumonia or pneumonitis, mild splenomegaly. Patient's blood pressures were soft in the emergency department, he had SIRS criteria present including tachypnea, fever and met criteria for septic shock given 2 blood pressures with MAP less than 65. He was given 1 L of normal saline and his blood pressure improved, he was not given 30 cc/kg IV fluid bolus given his history of congestive heart failure with presence of bilateral pitting edema to the lower extremities. Will admit for further valuation and management of septic shock, pneumonia. Allergies codeine Allergy (Verified 08/11/21 13:12) Itching Penicillins Allergy (Verified 08/11/21 13:12) Rash Home Medications: Amlodipine [Norvasc*] 10 mg PO DAILY 05/12/18 Atorvastatin Calcium [Lipitor] 40 mg PO BEDTIME 05/12/18 Aspirin 1 tab PO DAILY 10/10/20 Doxazosin Mesylate 1 tab PO BEDTIME 10/10/20 Gabapentin 300 mg PO BEDTIME 10/10/20 L.acidoph,Paracasei, B.lactis [Probiotic] 1 cap PO DAILY 10/10/20 Furosemide [Lasix*] 40 mg PO DAILY 30 Days #30 tab 10/13/20 lisinopriL [Lisinopril] 40 mg PO DAILY 12/18/20 Dapagliflozin Propanediol [Farxiga] 1 tab PO DAILY 04/05/22 predniSONE [Prednisone*] 20 mg PO BID #11 tab 04/06/22 Carbidopa/Levodopa [Carbidopa-Levodopa 25-100 Tab] 2 tab PO TID 09/20/22 Hydralazine [Apresoline*] 25 mg PO TID 09/20/22 Insulin Glargine/Lixisenatide [Soliqua 100 Unit-33 Mcg/ml Pen] See Protocol SQ ACHS 09/20/22 Na Bicarb Tab [Sodium Bicarb 325 MG Tab*] 650 mg PO BID 09/20/22 Pramipexole [Mirapex*] 0.5 mg PO TID 09/20/22 Pantoprazole [Protonix Tab] 40 mg PO BID #60 tab 09/21/22 - Past Medical/Surgical History Diabetic: Yes -: Hypertension -: DM type 2 -: Chronic atrial fibrillation -: Coronary artery disease -: Benign Tremors -: CKD 4 -: CABG -: Rotator cuff surgery Psychosocial/ Personal History: Patient lives at home with his - Family History Sister -: Diabetes Father -: Lung disease Notes: emphysema - Social History Alcohol use: No CD- Drugs: No Caffeine use: No Place of Residence: Home Review of Systems 10-point ROS is otherwise unremarkable General: Fever, Chills, Weakness, Malaise Respiratory: Cough, Dry, Shortness of Breath Physical Examination - Physical Exam General: Alert, In no apparent distress, Oriented x3 HEENT: Atraumatic, PERRLA, Mucous membr. moist/pink, EOMI, Sclerae nonicteric Neck: Supple, 2+ carotid pulse no bruit, No LAD, Without JVD or thyroid abnormality Respiratory: Diminished, Crackles/rales Cardiovascular: Normal S1 S2, Edema, Irregular heart rate/rhythm (A. fib, rate controlled) Capillary refill: <2 Seconds Gastrointestinal: Normal bowel sounds, No tenderness Musculoskeletal: No tenderness Integumentary: No rashes Neurological: Normal speech, Normal strength at 5/5 x4 extr, Normal tone, Normal affect Lymphatics: No axilla or inguinal lymphadenopathy - Studies Laboratory Data (last 24 hrs) 10/10/22 14:00: PT 13.2 H, INR 1.20, APTT 31.0 10/10/22 14:00: Sodium 138, Potassium 4.5, BUN 46 H, Creatinine 2.73 H, Glucose 188 H, Total Bilirubin 0.8, AST 16, ALT 16, Alkaline Phosphatase 186 H 10/10/22 14:00: WBC 10.70, Hgb 9.1 L, Hct 28.1 L, Plt Count 157 Assessment and Plan - Plan Assessment: Septic shock secondary to bilateral lower lobe pneumonia Acute on chronic diastolic congestive heart failure Atrial fibrillation CKD 4 Diabetes mellitus type IIinsulin-dependent CAD status post CABG Anemia of chronic diseaserecent upper GI bleed secondary to gastritis Plan: Septic shock secondary to bilateral lower lobe pneumonia: Blood cultures obtained in the emergency department, SIRS criteria present including fever, tachypnea meets criteria for septic shock given 2 blood pressures with MAP less than 65. He was given 1 L NS bolus, not given 30 cc/kg IV fluid bolus as blood pressure improved with 1 L of normal saline and he also has acute on chronic diastolic congestive heart failure. Will consult cardiology, nephrology continu e with antibiotics Rocephin/Zithromax. Will obtain sputum culture as well. Acute on chronic diastolic congestive heart failure: Cardiology to be consulted, will hold off on diuresis for the time being given no pulmonary edema present on chest x-ray, soft blood pressure readings in ED. Atrial fibrillation: Continue medications for rate control patient was taken off of his Xarelto after a recent GI bleed related to gastritis. He is reportedly going to receive the watchman procedure sometime in the near future with his flight/transport nurse. He currently takes daily aspirin, will continue this. CKD 4: Stable from baseline, nephrology consulted given presence of septic shock, volume overload, CKD 4. Diabetes mellitus type IIinsulin-dependent: Mild sliding scale insulin. CAD status post CABG: Monitor on telemetry, continue meds. Anemia of chronic diseaserecent upper GI bleed secondary to gastritis: Hemoglobin stable from discharge levels, continue twice daily Protonix. EGD showed gastritis at the time patient was taken off of his Xarelto. Denies further episodes of bleeding. DVT PPX:SCD Code status:Full Discharge Plan: Home Plan to discharge in: 72 Hours - Advance Directives Does patient have a Living Will: No Does patient have a Durable POA for Healthcare: No - Code Status/Comfort Care Code Status Assessed: Yes (Full code) Critical Care: No Time Spent Managing Pts Care (In Minutes): 70
[2022-10-10] MEDS ORDERED: ONDANSETRON 4 MG/2 ML VIAL IV PRN (20:52)
[2022-10-10] MEDS ORDERED: ALBUTEROL 2.5 MG/3 ML NEB SOL NEB PRN (20:52)
[2022-10-10] MEDS: INSULIN -REGULAR HUMAN 50 UNIT/0.5 ML ML SQ SCH (21:00)
[2022-10-10] MEDS: CARBIDOPA/LEVODOPA 25/100 TAB PO SCH (21:50)
[2022-10-10] MEDS: PANTOPRAZOLE 40MG TABLET PO SCH (21:50)
[2022-10-10] MEDS: SODIUM BICARB 325 MG TAB PO SCH (21:50)
[2022-10-10] MEDS: HEPARIN 5000 UNIT/ML 1 ML VIAL SQ SCH (21:50)
[2022-10-10 23:06] VITALS: BMI 33.4
[2022-10-11 05:59] LABS: Absolute Lymphocytes (CBC) 0.7 K/uL (0.7-4.9); Hematocrit 25.9 % (39.6-49.0); MCV 81.2 fL (80-100); MPV 8.2 fL (7.6-11.3); RBC Red Blood Cell Count 3.19 M/uL (4.33-5.43)
[2022-10-11 06:19] LABS: AST/SGOT 10 U/L (15-37); Albumin 3.1 g/dL (3.4-5.0); Alkaline Phosphatase 118 U/L (45-117); BUN Blood Urea Nitrogen 45 mg/dL (7-18); Bicarbonate 23 mmol/L (21-32); Glomerular Filtration Rate 27 ml/min (=/>90); Glucose Level 119 mg/dL (74-106); Potassium 4.3 mmol/L (3.5-5.1); Protein, Total 5.5 g/dL (6.4-8.2); Sodium Level 138 mmol/L (136-145)
[2022-10-11 06:25] LABS: ALT/SGPT < 10 U/L (16-61)
[2022-10-11] MEDS: INSULIN -REGULAR HUMAN 50 UNIT/0.5 ML ML SQ SCH ×4 (07:30→21:00)
[2022-10-11] MEDS: SODIUM BICARB 325 MG TAB PO SCH ×2 (08:56→22:02)
[2022-10-11] MEDS: PANTOPRAZOLE 40MG TABLET PO SCH ×2 (08:56→16:12)
[2022-10-11] MEDS: ASPIRIN EC 81 MG TAB PO SCH (08:56)
[2022-10-11] MEDS: CARBIDOPA/LEVODOPA 25/100 TAB PO SCH ×3 (08:56→22:01)
[2022-10-11] MEDS: HEPARIN 5000 UNIT/ML 1 ML VIAL SQ SCH ×2 (08:57→22:03)
[2022-10-11] MEDS ORDERED: CEFTRIAXONE 1,000 MG in NA CHLORIDE 0.9% 50 ML IVPB SCH (09:00)
[2022-10-11] MEDS ORDERED: AZITHROMYCIN IV 500 MG in NA CHLORIDE 0.9% 250 ML IVPB SCH (09:00)
--- NOTE | 2022-10-11 09:18 | P.PN ---
Date of Service: 10/11/22 Subjective: feels breathing has improved no nausea/vomiting/diarrhea, no bleeding still short of breat / dyspneic on exertion ROS: A complete review of systems was performed and is negative except as mentioned above Physical Exam: Gen: NAD, AOx3 HEENT: normal conjunctiva, sclera anicteric CV: irregularlly irregular rhythm, 1+ bilateral lower extremity edema Pulm: non-labored respirations, diminished bialterally with rhonchi, on 2L NC Abd: soft, non-tender, non-distended Skin: no rashes, no lesions Neuro: normal speech, normal affect, moves all extremities vitals reviewed Problem List Septic shock secondary to bilateral lower lobe pneumonia Acute on chronic diastolic congestive heart failure Atrial fibrillation CKD 4 Diabetes mellitus type IIinsulin-dependent CAD status post CABG Anemia of chronic diseaserecent upper GI bleed secondary to gastritis b/l pneumonia blood cultures obtained in ED; 2BP with MAP< 65, documented septic shock. received only 1L NS, due to acute on chronic diastolic CHF febrile >101 in ED continue empiric antibiotics Pulm consulted acute on chronic d-CHF Afib - continue home meds, pt with rate control, stable cardiology consulted recent GI bleed, not candidate for anticoagulation, scheduled for watchman's procedure next month KRISTI on CKD4 repeat labs, monitor; possibly from CHF exacerbation vs hypotension / sepsis nephrology consullted sliding scale insulin / accucheks monitor hgb given recent GI bleed pt denies any dark or bloody stools VTE: SCDs Code: Full Dispo: home, ~2 days Time Spent Managing Pts Care (In Minutes): 35
--- NOTE | 2022-10-11 13:19 | P.CNS ---
Date of Consult: 10/11/22 Reason for Consult: Shortness of breath Chief Complaint: Shortness of breath History of Present Illness: Patient is 77 years of age has been sick for about 2 days complaining of shortness of breath admitted with a pneumonia he does have Parkinson's disease with tremors history of coronary artery disease he is doing much better denies any fever chills or productive cough feeling better since admission Allergies codeine Allergy (Verified 08/11/21 13:12) Itching Penicillins Allergy (Verified 08/11/21 13:12) Rash Home Medications: Atorvastatin Calcium [Lipitor] 40 mg PO BEDTIME 05/12/18 Aspirin 1 tab PO DAILY 10/10/20 Doxazosin Mesylate 1 tab PO BEDTIME 10/10/20 Gabapentin 300 mg PO BEDTIME 10/10/20 lisinopriL [Lisinopril] 40 mg PO DAILY 12/18/20 Dapagliflozin Propanediol [Farxiga] 1 tab PO DAILY 04/05/22 Carbidopa/Levodopa [Carbidopa-Levodopa 25-100 Tab] 2 tab PO TID 09/20/22 Hydralazine [Apresoline*] 25 mg PO TID 09/20/22 Na Bicarb Tab [Sodium Bicarb 325 MG Tab*] 650 mg PO BID 09/20/22 Pramipexole [Mirapex*] 1 tab PO TID 09/20/22 Pantoprazole [Protonix Tab] 40 mg PO BID #60 tab 09/21/22 Allopurinol 1 tab PO DAILY 10/10/22 Furosemide [Lasix*] 40 mg PO DAILY PRN 10/10/22 Umeclidinium Brm/Vilanterol Tr [Anoro Ellipta 62.5-25 Mcg INH] 1 puff IH DAILY 10/10/22 - Past Medical/Surgical History Diabetic: Yes -: Hypertension -: DM type 2 -: Chronic atrial fibrillation -: Coronary artery disease -: Benign Tremors -: CKD 4 -: CABG -: Rotator cuff surgery Psychosocial/ Personal History: Patient lives at home with his - Family History Sister Medical History: Diabetes Father Medical History: Lung disease Notes: emphysema - Social History Smoking Status: Unknown if ever smoked Alcohol use: No CD- Drugs: No Caffeine use: No Place of Residence: Home Review of Systems 10-point ROS is otherwise unremarkable Physical Examination Temp Pulse Resp BP Pulse Ox 98.9 F 63 18 104/48 L 90 L 10/11/22 12:00 10/11/22 12:00 10/11/22 12:00 10/11/22 12:00 10/11/22 12:00 General: Alert, In no apparent distress, Oriented x3 Neck: Supple Respiratory: Clear to auscultation bilaterally Cardiovascular: No edema, Regular rate/rhythm, Normal S1 S2 Gastrointestinal: Normal bowel sounds, Soft and benign, Non-distended Laboratory Data (last 24 hrs) 10/10/22 14:00: PT 13.2 H, INR 1.20, APTT 31.0 10/10/22 14:00: Sodium 138, Potassium 4.5, BUN 46 H, Creatinine 2.73 H, Glucose 188 H, Total Bilirubin 0.8, AST 16, ALT 16, Alkaline Phosphatase 186 H 10/10/22 14:00: WBC 10.70, Hgb 9.1 L, Hct 28.1 L, Plt Count 157 - Problems (1) Congestive heart failure Current Visit: Yes Status: Acute Plan: Patient is 77 years of age admitted with worsening dyspnea he does have a right- sided pleural effusion elevated BNP chronic renal failure mild anemia I suspect that he has an exacerbation of his underlying presumed diastolic heart failure patient does not smoke currently he is on any inhaled doing better doubt pneumonia chest x-ray shows cardiomegaly patient's vital signs are stable probably needs to increase his Lasix at home there is no evidence of any infection he does not qualify for home O2 given him 1 dose of Lasix here patient has a Pepe catheter and for discharge Qualifiers: Heart failure type: diastolic
[2022-10-11] MEDS: FUROSEMIDE 40 MG/4 ML VIAL IV SCH (13:46)
--- NOTE | 2022-10-11 15:10 | CON ---
Date of Consultation: 10/11/2022 Reason For Consultation: Shortness of breath and heart failure. History Of Present Illness: A 77-year-old male with history of atrial fibrillation; history of GI bl eed, so he is not on anticoagulation; coronary artery disease, status post CABG; diabetes; diastolic heart failure; Parkinson's; dyslipidemia, stage 4 kidney disease, presented with shortness of breath, lower extremity edema, found to be in acute heart failure, started on Lasix and he is doing better. Past Medical History: As outlined above in the HPI. Medications: Reviewed. Please refer to reconciliation sheet for detailed list. Allergies: CODEINE, PENICILLIN. Family History: No premature coronary artery disease or cancer. Social History: Does not smoke or drink. Does not use any drugs. Review of Systems: All systems reviewed are they are negative except as mentioned in the HPI. Physical Examination: Vital Signs: Reviewed. Head and Neck: Pupils are equal, reactive to light. Intact eye movements. No JVD. No cervical lym phadenopathy. Neck is supple. Thyroid is not enlarged. Lungs: Decreased breathing sounds with rhonchi bilaterally. No accessory muscle use or muscle retra ction. Heart: Irregularly irregular. No extra sounds. Abdomen: Soft, nontender. Bowel sounds positive. No organomegaly. No masses or hernia. No rigidi ty or rebound. Extremities: Edema bilaterally. No clubbing, cyanosis. Intact pulses. Skin: No rashes. Neurologic: Alert, awake, oriented x3. No acute focal deficits appreciated. Investigations: Creatinine on admission was 2.73 and now is 2.39. Troponins are negative. Hemoglob in 8.6 and white blood cell count was 8.6. Chest x-ray, no acute abnormalities. Assessment And Plan: 1.Acute on chronic diastolic heart failure exacerbation. Continue IV Lasix. His creatinine has imp roved significantly suggesting significant fluid overload condition. Monitor BUN, creatinine, and el ectrolytes. 2.Acute on chronic renal failure due to acute congestive heart failure exacerbation and elevated simone tral venous pressure, improved with Lasix. Continue current management. Patient had a recent gastro intestinal bleed, so is not a candidate for anticoagulation. He is already on the schedule to have a left atrial appendage closure, which will be done as an outpatient. In the interim, I recommend to load him with amiodarone to get him out of atrial fibrillation and if he does not convert into sinus rhythm, then we will plan for cardioversion. SR/MODL Voice ID: [id number] Report ID: [id number]
--- NOTE | 2022-10-11 18:23 | P.CNS ---
Date of Consult: 10/11/22 Reason for Consult: KRISTI , fluid management Chief Complaint: Shortness of breath History of Present Illness: A 77-year-old gentleman with significant past medical history Diabetic CKD IV , of hypertension , COPD, Parkinson disease , diabetes s, CAD status post CABG, and CHF pt was admitted for SOB pt was admitted recently for CHF exacerbation and anemia , this admission pt had SOB, in ER pt was febrile, BP borderline, pt received IVF, in ER Cr 2.7 , CT scan showed pneumonia, pt started ion IVF ABx , his cr improved to 2.3 today , lasix resumed Past Medical History: Includes; 1. Diabetes complicated with neuropathy, nephropathy, and retinopathy with nephrotic range proteinuria. 2. Hypertension. 3. Hyperlipidemia. 4. CAD status post CABG. Had echocardiogram back in December 2020 with normal ejection fraction. 5. Hypertension. 6. Parkinson disease. Allergies: TO CODEINE AND PENICILLIN. Past Surgical History: Includes CABG, rotator cuff surgery. Family History: Positive for diabetes and COPD. Social History: Denied smoking, denied drinking, denied drugs abuse ROS General : fever, HEENT: Denies dry, vision changes and headache Resp: SOB,denied cough or wheezes Cardiovascular: have excertional dyspnea and edema , denied chest pain, palpitation GI: denies abdominal pain, diarrhea or constipation : denies dysuria, urgency, foamy urine or blood tinged urine Musculoskeletal: denies muscle aches, joint pain Endo: denies polyuria and and polydipsia Extre: denies pain numbness Physical exam General: AAOx3, NAD, obese HEENT PERRLA, moist mucose membrane neck: supple, no elevated JVD CHEST; rales HEART : RRR. Normal S1,2 no murmur or rub Abd: soft, Nt, liao catheter Ext: +1 edema Skin : No rash A/P # KRISTI on diabetic CKD Cr improving CT scan no hydronephrosis cont lasix renal diet renal dose medications will dc Liao in 1-2 days #DM SSI #CHF Cont lasix I/o low salt diet #Anemia of chronic disease S/P EGD recently , showed gastritis Cont PPI monitor Hb and transfuse if Hb <7.0 Total time spent 65 minutes including documentation, reviewing labs , placing orders and discussing with medical team Allergies codeine Allergy (Verified 08/11/21 13:12) Itching Penicillins Allergy (Verified 08/11/21 13:12) Rash Home Medications: Atorvastatin Calcium [Lipitor] 40 mg PO BEDTIME 05/12/18 Aspirin 1 tab PO DAILY 10/10/20 Doxazosin Mesylate 1 tab PO BEDTIME 10/10/20 Gabapentin 300 mg PO BEDTIME 10/10/20 lisinopriL [Lisinopril] 40 mg PO DAILY 12/18/20 Dapagliflozin Propanediol [Farxiga] 1 tab PO DAILY 04/05/22 Carbidopa/Levodopa [Carbidopa-Levodopa 25-100 Tab] 2 tab PO TID 09/20/22 Hydralazine [Apresoline*] 25 mg PO TID 09/20/22 Na Bicarb Tab [Sodium Bicarb 325 MG Tab*] 650 mg PO BID 09/20/22 Pramipexole [Mirapex*] 1 tab PO TID 09/20/22 Pantoprazole [Protonix Tab] 40 mg PO BID #60 tab 09/21/22 Allopurinol 1 tab PO DAILY 10/10/22 Furosemide [Lasix*] 40 mg PO DAILY PRN 10/10/22 Umeclidinium Brm/Vilanterol Tr [Anoro Ellipta 62.5-25 Mcg INH] 1 puff IH DAILY 10/10/22 - Past Medical/Surgical History Diabetic: Yes -: Hypertension -: DM type 2 -: Chronic atrial fibrillation -: Coronary artery disease -: Benign Tremors -: CKD 4 -: CABG -: Rotator cuff surgery Psychosocial/ Personal History: Patient lives at home with his - Family History Sister Medical History: Diabetes Father Medical History: Lung disease Notes: emphysema - Social History Smoking Status: Unknown if ever smoked Alcohol use: No CD- Drugs: No Caffeine use: No Place of Residence: Home Physical Examination Temp Pulse Resp BP Pulse Ox 99.5 F 65 18 131/60 94 10/11/22 16:00 10/11/22 16:00 10/11/22 16:00 10/11/22 16:00 10/11/22 16:00
[2022-10-12 04:00] LABS: Absolute Lymphocytes (CBC) 0.8 K/uL (0.7-4.9); Hematocrit 28.4 % (39.6-49.0); Lymphocytes % 11.7 % (15.3-44.8); MCV 81.2 fL (80-100); MPV 8.3 fL (7.6-11.3)
[2022-10-12 04:18] LABS: AST/SGOT 12 U/L (15-37); Albumin 3.3 g/dL (3.4-5.0); Alkaline Phosphatase 112 U/L (45-117); BUN Blood Urea Nitrogen 46 mg/dL (7-18); Bicarbonate 23 mmol/L (21-32); Glomerular Filtration Rate 27 ml/min (=/>90); Glucose Level 133 mg/dL (74-106); Potassium 4.3 mmol/L (3.5-5.1); Protein, Total 5.9 g/dL (6.4-8.2); Sodium Level 136 mmol/L (136-145)
[2022-10-12 04:29] LABS: ALT/SGPT < 10 U/L (16-61)
[2022-10-12] MEDS: INSULIN -REGULAR HUMAN 50 UNIT/0.5 ML ML SQ SCH ×4 (07:30→20:49)
[2022-10-12] MEDS: ASPIRIN EC 81 MG TAB PO SCH (08:31)
[2022-10-12] MEDS: HEPARIN 5000 UNIT/ML 1 ML VIAL SQ SCH ×2 (08:31→20:12)
[2022-10-12] MEDS: SODIUM BICARB 325 MG TAB PO SCH ×2 (08:31→20:12)
[2022-10-12] MEDS: FUROSEMIDE 40 MG/4 ML VIAL IV SCH (08:31)
[2022-10-12] MEDS: CARBIDOPA/LEVODOPA 25/100 TAB PO SCH ×3 (08:31→20:12)
[2022-10-12] MEDS: PANTOPRAZOLE 40MG TABLET PO SCH ×2 (08:31→16:39)
--- NOTE | 2022-10-12 14:40 | P.PN ---
Subjective Date of Service: 10/12/22 Chief Complaint: Shortness of breath Subjective: Other (He reports no inc in SOB.) Physical Examination - Vital Signs Temperature: 97.6 F Blood Pressure: 132/66 Pulse: 58 Respirations: 14 Pulse Ox (%): 91 - Physical Exam General: In no apparent distress HEENT: Atraumatic, Normocephalic Neck: Supple, JVD not distended Respiratory: Other (Symmetric chest expansion) Cardiovascular: No rubs, No murmurs Gastrointestinal: Soft and benign, No guarding Musculoskeletal: No clubbing, Swelling Integumentary: No warmth Neurological: Normal speech, Normal tone Lymphatics: No axilla or inguinal lymphadenopathy Urinary: Other (No bladder distention) External genitalia: Deferred Rectal: Deferred - Studies Microbiology Data (last 24 hrs): 10/10/22 16:25 Clean Catch Urine [place] Count - Final No growth. 10/10/22 16:25 Clean Catch Urine - Final No growth. Assessment And Plan - Plan # KRISTI 2/2 CRS1 w/ shock on diabetic CKD Shock resolved, SCr improving CT scan no hydronephrosis cont lasix [place] po fluid intake Monitor renal panel # Acute on chronic diastolic HF Received abx empirically for ?pneumonia Cont lasix low salt diet Do not restrict po fluid intake unless serum Na drops below 130 meq/L # Anemia of chronic disease S/P EGD recently , showed gastritis Cont PPI monitor Hb and transfuse if Hb <7.0 # DM Mngt per primary team
--- NOTE | 2022-10-12 16:25 | P.PN ---
Date of Service: 10/12/22 Subjective: feeling much better sitting up in chair at bedside has not ambulated much yet no new/worsening symptoms liao remains, good UOP off oxygen this morning ROS: A complete review of systems was performed and is negative except as mentioned above Physical Exam: Gen: NAD, AOx3 HEENT: normal conjunctiva, sclera anicteric CV: irregularlly irregular rhythm, trace-1+ bilateral lower extremity edema Pulm: non-labored respirations, diminished bilaterally with mild rhonchi, on room air Abd: soft, non-tender, non-distended Neuro: normal speech, normal affect, moves all extremities liao in place (placed in ED for strict I/Os) vitals reviewed Problem List Septic shock secondary to bilateral lower lobe pneumonia Acute on chronic diastolic congestive heart failure Atrial fibrillation CKD 4 Diabetes mellitus type IIinsulin-dependent CAD status post CABG Anemia of chronic diseaserecent upper GI bleed secondary to gastritis b/l pneumonia blood cultures obtained in ED; 2BP with MAP< 65, documented septic shock. received only 1L NS, due to acute on chronic diastolic CHF febrile >101 in ED continue empiric antibiotics Pulm consulted - dc'd antibiotics 10/11, felt this is not sepsis/infectious lasix as need acute on chronic d-CHF Afib - continue home meds, pt with rate control, stable cardiology consulted recent GI bleed, not candidate for anticoagulation, scheduled for watchman's procedure next month KRISTI on CKD4 repeat labs, monitor; possibly from CHF exacerbation vs hypotension / sepsis nephrology consulted stable around baseline now dc liao in AM sliding scale insulin / accucheks monitor hgb given recent GI bleed pt denies any dark or bloody stools VTE: SCDs Code: Full Dispo: home, ~possibly tomorrow Time Spent Managing Pts Care (In Minutes): 35
[2022-10-12] MEDS ORDERED: AMIODARONE HCL 150 MG in D5W 100 ML IV STA (19:25)
[2022-10-12] MEDS ORDERED: AMIODARONE HCL 900 MG in Dextrose 5%-Water 482 ML IV SCH (20:00)
--- NOTE | 2022-10-12 20:02 | PN ---
Date of Progress Note: 10/12/2022 Subjective: Seen by bedside, doing clinically better. Review of Systems: No chest pain. He has some shortness of breath. No dysuria, polyuria, or urinary urgency. All othe r systems reviewed and they were negative. Physical Examination: Vital Signs: Reviewed. Head And Neck: Pupils are equal and reactive to light. Intact eye movements. No JVD. No cervical lymphadenopathy. Neck is supple. Thyroid is not enlarged. Lungs: Clear to auscultation bilaterally. No rhonchi, wheezing, or crackles. No accessory muscle u se. Heart: Irregularly irregular. No extra sounds. Abdomen: Soft, nontender. Bowel sounds positive. No organomegaly. No masses or hernia. No rigidi ty or rebound. Extremities: Trace edema. No clubbing or cyanosis. Intact pulses. Skin: No rash. Neurologic: Alert, awake, and oriented x3. No acute focal deficits appreciated. Investigations: Labs are reviewed. Assessment/recommendation: 1.[id number] diastolic heart failure exacerbation, improving. Continue current management. 2.Atrial fibrillation. The patient was not started on amiodarone drip yet. We will discuss with [facility] hospitalist and if no contraindication, also recommend load with amiodarone drip. We will plan for left atrial appendage closure as an outpatient due to the GI bleed history and at that time, while he is on amiodarone, we will do cardioversion. SR/MODL Voice ID: [id number] Report ID: [id number]
[2022-10-12] MEDS ORDERED: AMIODARONE IN DEXTROSE,ISO-OSM 360 MG/200 ML BAG IV ONE ×2 (20:52→20:55)
[2022-10-13 03:49] LABS: Absolute Lymphocytes (CBC) 0.7 K/uL (0.7-4.9); Hematocrit 28.5 % (39.6-49.0); MCV 79.8 fL (80-100); MPV 8.1 fL (7.6-11.3); RBC Red Blood Cell Count 3.57 M/uL (4.33-5.43)
[2022-10-13 04:14] LABS: AST/SGOT 16 U/L (15-37); Albumin 3.3 g/dL (3.4-5.0); Alkaline Phosphatase 102 U/L (45-117); BUN Blood Urea Nitrogen 44 mg/dL (7-18); Bicarbonate 24 mmol/L (21-32); Creatine Phosphokinase 90 U/L (39-308); Glomerular Filtration Rate 30 ml/min (=/>90); Glucose Level 145 mg/dL (74-106); Potassium 4.4 mmol/L (3.5-5.1); Sodium Level 137 mmol/L (136-145)
[2022-10-13 04:29] LABS: ALT/SGPT < 10 U/L (16-61)
[2022-10-13] MEDS: INSULIN -REGULAR HUMAN 50 UNIT/0.5 ML ML SQ SCH (07:30)
[2022-10-13] MEDS: SODIUM BICARB 325 MG TAB PO SCH (08:22)
[2022-10-13] MEDS: ASPIRIN EC 81 MG TAB PO SCH (08:23)
[2022-10-13] MEDS: PANTOPRAZOLE 40MG TABLET PO SCH (08:23)
[2022-10-13] MEDS: CARBIDOPA/LEVODOPA 25/100 TAB PO SCH (08:23)
[2022-10-13] MEDS: HEPARIN 5000 UNIT/ML 1 ML VIAL SQ SCH (08:24)
[2022-10-13] MEDS: FUROSEMIDE 40 MG/4 ML VIAL IV SCH (08:25)
[2022-10-13 08:33] VITALS: BP 155/58
[2022-10-13 09:08] VITALS: TEMP 98.1
[2022-10-13 10:11] VITALS: O2SAT 91
--- NOTE | 2022-10-13 10:11 | P.DS ---
Admission Date: 10/10/22 Discharge Date: 10/13/22 Disposition: ROUTINE DISCHARGE Discharge Condition: FAIR Reason for Admission: Shortness of breath - Problems (1) Congestive heart failure Current Visit: Yes Status: Acute Qualifiers: Heart failure type: diastolic Brief History of Present Illness: Patient is 77 years of age has been sick for about 2 days complaining of shortness of breath admitted with a pneumonia he does have Parkinson's disease with tremors history of coronary artery disease he is doing much better denies any fever chills or productive cough feeling better since admission Hospital Course: Patient is 77 years of age admitted with acute on chronic diastolic heart failure developed A. fib by cardiology and was started on amiodarone he did well was diuresed also seen by nephrology and function stable CT of the abdomen was also done nonspecific changes scheduled for a cardioversion on October 31 and to resume all other home medication oxygenation satisfactory at discharge and to monitor his weights fluid intake salt Vital Signs/Physical Exam: Temp Pulse Resp BP Pulse Ox 98.1 F 64 18 155/58 H 90 L 10/13/22 08:00 10/13/22 08:25 10/13/22 08:00 10/13/22 08:25 10/13/22 08:00 Laboratory Data at Discharge: WBC 6.10 K/uL (4.3-10.9) 10/13/22 03:18 Hgb 9.3 g/dL (13.6-17.9) L 10/13/22 03:18 Hct 28.5 % (39.6-49.0) L 10/13/22 03:18 Plt Count 161 K/uL (152-406) 10/13/22 03:18 PT 13.2 SECONDS (9.5-12.5) H 10/10/22 14:00 INR 1.20 10/10/22 14:00 APTT 31.0 SECONDS (24.3-36.9) 10/10/22 14:00 Sodium 137 mmol/L (136-145) 10/13/22 03:18 Potassium 4.4 mmol/L (3.5-5.1) 10/13/22 03:18 BUN 44 mg/dL (7-18) H 10/13/22 03:18 Creatinine 2.17 mg/dL (0.70-1.30) H 10/13/22 03:18 Glucose 145 mg/dL (74-106) H 10/13/22 03:18 Total Bilirubin 1.0 mg/dL (0.2-1.0) 10/13/22 03:18 AST 16 U/L (15-37) 10/13/22 03:18 ALT < 10 U/L (16-61) L 10/13/22 03:18 Alkaline Phosphatase 102 U/L (45-117) 10/13/22 03:18 Home Medications: Atorvastatin Calcium [Lipitor] 40 mg PO BEDTIME 05/12/18 Aspirin 1 tab PO DAILY 10/10/20 Doxazosin Mesylate 1 tab PO BEDTIME 10/10/20 Gabapentin 300 mg PO BEDTIME 10/10/20 lisinopriL [Lisinopril] 40 mg PO DAILY 12/18/20 Dapagliflozin Propanediol [Farxiga] 1 tab PO DAILY 04/05/22 Carbidopa/Levodopa [Carbidopa-Levodopa 25-100 Tab] 2 tab PO TID 09/20/22 Hydralazine [Apresoline*] 25 mg PO TID 09/20/22 Na Bicarb Tab [Sodium Bicarb 325 MG Tab*] 650 mg PO BID 09/20/22 Pramipexole [Mirapex*] 1 tab PO TID 09/20/22 Pantoprazole [Protonix Tab*] 40 mg PO BID #60 tab 09/21/22 Allopurinol 1 tab PO DAILY 10/10/22 Furosemide [Lasix*] 40 mg PO DAILY PRN 10/10/22 Umeclidinium Brm/Vilanterol Tr [Anoro Ellipta 62.5-25 Mcg INH] 1 puff IH DAILY 10/10/22 Amiodarone HCl [Cordarone*] 200 mg PO DAILY 30 Days #60 tab 10/13/22 New Medications: Amiodarone HCl [Cordarone*] 200 mg PO DAILY 30 Days #60 tab Physician Discharge Instructions: Fluid restriction 1200 cc a day no added salt diet Daily weights uterine prescription has been faxed follow-up with Dr. Kingsley for cardioversion scheduled for October 31 Diet: Low sodium Followup: Raoul Dailey MD [ACTIVE - CAN ADMIT] - Unknown,U [Primary Care Provider] -
[2022-10-13] MEDS ORDERED: AMIODARONE HCL 900 MG in Dextrose 5%-Water 482 ML IV SCH (12:00)
--- NOTE | 2022-10-13 17:31 | EKG ---
Test Date: 2022-10-10 Test Time: 14:38:36 Ship Fitter: BG MEASUREMENT RESULTS: Intervals: Rate: 62 NH: QRSD: 88 QT: 418 QTc: 424 Novice: P: NH: QRS: -44 T: 182 INTERPRETIVE STATEMENTS: Atrial fibrillation Left axis deviation Nonspecific ST and T wave abnormality Abnormal ECG Compared to ECG 09/19/2022 15:20:34 Left-axis deviation now present Left anterior fascicular block no longer present ST (T wave) deviation still present Electronically Signed On 10-13-22 17:27:33 BAG TURNER by Raoul Dailey
== END 2022-10-13 11:29 | disposition home or self-care (01) | DRG 871 ==
LOC: ER 13:45 → ERHOLD 19:35 → 2ND 20:21
PROVIDERS: ADMIT Hospitalist; ATTEND Internal Medicine Sleep Medicine
DX: A41.9 Sepsis, unspecified organism (principal); I50.33 Acute on chronic diastolic (congestive) heart failure; J18.9 Pneumonia, unspecified organism; I13.0 Hypertensive heart and chronic kidney disease with heart failure and stage 1 through stage 4 chronic kidney disease, or unspecified chronic kidney disease; N18.4 Chronic kidney disease, stage 4 (severe); N17.9 Acute kidney failure, unspecified; E11.22 Type 2 diabetes mellitus with diabetic chronic kidney disease; E11.40 Type 2 diabetes mellitus with diabetic neuropathy, unspecified; E11.319 Type 2 diabetes mellitus with unspecified diabetic retinopathy without macular edema; D63.1 Anemia in chronic kidney disease; I48.91 Unspecified atrial fibrillation; E78.5 Hyperlipidemia, unspecified; G20 Parkinson's disease; D63.8 Anemia in other chronic diseases classified elsewhere; I25.10 Atherosclerotic heart disease of native coronary artery without angina pectoris; Z88.5 Allergy status to narcotic agent; Z79.4 Long term (current) use of insulin; Z88.0 Allergy status to penicillin; Z95.1 Presence of aortocoronary bypass graft; Z79.82 Long term (current) use of aspirin; Z79.52 Long term (current) use of systemic steroids; Z87.891 Personal history of nicotine dependence; Z79.899 Other long term (current) drug therapy; Z20.822 Contact with and (suspected) exposure to COVID-19
CPT/HCPCS: 0240U; 36415; 51702; 71045; 71250; 74176; 80053; 81015; 82550; 82947; 83605; 83880; 84145; 84484; 85025; 85379; 85610; 85730; 87040; 87086; 87088; 93005; 94010; 96361; 96365; 96368; 99285; J0282; J0456; J1644; J1815; J1940; J7030; J7050

== ENCOUNTER → 2022-12-27 | Day surgery (SDC) | payer OTHER ==
[~2022-12-27] MED LIST: ATROPINE SULF 1 MG/10 ML SYR IV ONE; FENTANYL CITR 100 MCG/2 ML ONE; FLUMAZENIL 0.1 MG/ML (5 mL VIAL) IV ONE; LIDOCAINE VISCOUS 2% SOLN 15 ML UDC ONE; MIDAZOLAM HCL 5 ML ONE; NA CHLORIDE 0.9% 500 ML ONE
[2022-12-27 10:14] VITALS: BP 101/63; O2SAT 100
--- NOTE | 2022-12-27 10:50 | OP ---
Date of Procedure: 12/27/2022 Surgeon: MARIBEL NINO Procedure Performed: Transesophageal echocardiogram. Indication: Left atrial appendage thrombus. This is a pre-Watchman. Description Of Procedure: After risks, benefits, alternatives, risks were explained, the patient agr eed to the procedure and signed informed consent. The patient was brought into the cardiac ablation laboratory and after proper time-out, the back of the throat was numbed using local lidocaine and the n I gave 3 mg of Versed and then LETA probe was inserted without difficulty. LETA was performed. No t hrombus was seen. LETA probe was removed. The patient tolerated the procedure very well. Conclusion: Successful transesophageal echocardiogram with no complications and no left atrial appen dage thrombus. Plan: Proceed with Watchman. /TIFFANIE Voice ID: [id number] Report ID: [id number]
--- NOTE | 2022-12-27 13:53 | TEE ---
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 NORMAL LEFT VENTRICULAR EJECTION FRACTION 55-60% 2. NO LEFT ATRIAL APPENDAGE THROMBUS IS SEEN TECHNOLOGIST: VENESSA JOHNSON
== END | disposition home or self-care (01) ==
LOC: EKG 06:29
PROVIDERS: ATTEND Internal Medicine
DX: I48.91 Unspecified atrial fibrillation (principal); Z88.0 Allergy status to penicillin; Z88.5 Allergy status to narcotic agent
CPT/HCPCS: 93312; J2250; J7040 ×2; J0461; J3010

== ENCOUNTER 2023-03-14 06:42 | Day surgery (SDC) | payer OTHER ==
[2023-03-14] MEDS ORDERED: FLUMAZENIL 0.1 MG/ML (5 mL VIAL) IV ONE (07:17)
[2023-03-14] MEDS ORDERED: MIDAZOLAM HCL 2 MG/2 ML INJ ONE (07:17)
[2023-03-14] MEDS ORDERED: ATROPINE SULF 1 MG/10 ML SYR IV ONE (07:17)
[2023-03-14] MEDS ORDERED: LIDOCAINE VISCOUS 2% SOLN 15 ML UDC ONE ×2 (07:24)
[2023-03-14] MEDS ORDERED: PHENOL 1.4% ORAL SPRAY 180ML ONE (07:24)
[2023-03-14] MEDS ORDERED: MIDAZOLAM HCL 5 MG/5 ML INJ ONE ×2 (07:24)
[2023-03-14] MEDS ORDERED: NA CHLORIDE 0.9% 500 ML ONE (07:29)
--- NOTE | 2023-03-15 07:01 | TEE ---
TRANSESOPHAGEAL ECHOCARDIOGRAM REPORT CARDIOLOGY DEPARTMENT DATE OF STUDY: 03/14/2023 HEIGHT: 5'8 WEIGHT: 216 DIAGNOSIS: STATUS POST WATCHMAN CARDIAC HISTORY: CATHERIZATION: SURGERY: PROSTHETIC VALVE: PACEMAKER: 2 DIMENSIONAL ASSESSMENT: RIGHT ATRIUM: LEFT ATRIUM: RIGHT VENTRICLE: LEFT VENTRICLE: TRICUSPID VALVE: MITRAL VALVE: PULMONIC VALVE: AORTIC VALVE: PERICARDIAL EFFUSION: AORTIC ROOT: EJECTION FRACTION: 50 % COMMENTS: 1. LETA PROBE WAS INSERTED WITH DIFFICULTY. 2. WATCHMAN IS SEATED WELL. NO LEAK. SMALL THROMBUS ON THE DEVICE. 3. NORMAL LEFT VENTRICULAR EJECTION FRACTION 50%. TECHNOLOGIST: Abbey JOHNSON
== END 2023-03-14 09:15 | disposition home or self-care (01) ==
LOC: EKG 06:42
PROVIDERS: ATTEND Internal Medicine
DX: I48.91 Unspecified atrial fibrillation (principal); Z98.890 Other specified postprocedural states; I25.10 Atherosclerotic heart disease of native coronary artery without angina pectoris; I35.0 Nonrheumatic aortic (valve) stenosis; I11.0 Hypertensive heart disease with heart failure; I50.33 Acute on chronic diastolic (congestive) heart failure; E11.9 Type 2 diabetes mellitus without complications; E78.5 Hyperlipidemia, unspecified; Z79.82 Long term (current) use of aspirin; Z79.01 Long term (current) use of anticoagulants; Z79.899 Other long term (current) drug therapy; Z88.0 Allergy status to penicillin; Z88.5 Allergy status to narcotic agent; Z87.891 Personal history of nicotine dependence; Z82.49 Family history of ischemic heart disease and other diseases of the circulatory system
CPT/HCPCS: 93312; 82947; J2250; J7040; J0461

== ENCOUNTER 2023-05-06 11:00 | Day surgery (SDC) | payer OTHER ==
[~2023-05-06 11:00] MED LIST changes: -ATROPINE SULF 1 MG/10 ML SYR IV ONE; -FENTANYL CITR 100 MCG/2 ML ONE; -FLUMAZENIL 0.1 MG/ML (5 mL VIAL) IV ONE; -LIDOCAINE VISCOUS 2% SOLN 15 ML UDC ONE; -MIDAZOLAM HCL 5 ML ONE; -NA CHLORIDE 0.9% 500 ML ONE; +SIMPLE SYRUP 10 ML, LIDOCAINE 2% VISCOUS ORAL 10 ML PO ONE
[2023-05-06] MEDS ORDERED: HYDRALAZINE HCL 20 MG/ML VIAL ONE (11:15)
[2023-05-06] MEDS ORDERED: FLUMAZENIL 0.1 MG/ML (5 mL VIAL) IV ONE (11:16)
[2023-05-06] MEDS ORDERED: MIDAZOLAM HCL 5 ML ONE (11:16)
[2023-05-06] MEDS ORDERED: ATROPINE SULF 1 MG/10 ML SYR IV ONE (11:16)
[2023-05-06] MEDS ORDERED: METOPROLOL TARTRATE 5 MG/5 ML INJ IV ONE (11:16)
[2023-05-06] MEDS ORDERED: FENTANYL CITR 100 MCG/2 ML ONE (11:16)
[2023-05-06] MEDS ORDERED: NA CHLORIDE 0.9% 500 ML ONE (11:30)
--- NOTE | 2023-05-06 13:40 | OP ---
Date of Procedure: 05/06/2023 Surgeon: MARIBEL NINO Procedure Performed: Transesophageal echocardiogram. Indication: AFib, post Watchman. Description Of Procedure: After risks, benefits, and alternatives were explained, the patient agreed to procedure and signed informed consent. The patient was brought into the cardiac catheterization laboratory. After appropriate time-out, back of throat was numbed using viscous and lidocaine and th en gave 3 mg of Versed and LETA was performed and Watchman seated very well. No thrombus. LETA was re moved and the patient sent to recovery in stable condition. Conclusion: Successful LETA post Watchman and Watchman seated well with no leak or thrombus. Plan: Discontinue Xarelto. SR/MODL Voice ID: [id number] Report ID: [id number]
--- NOTE | 2023-05-07 06:54 | TEE ---
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 TRANSESOPHAGEAL ECHOCARDIOGRAM PROBE WAS INSERTED WITHOUT DIFFICULTY 2. NORMAL LEFT VENTRICULAR EJECTION FRACTION 55-60% 3. WATCHMAN IS SEATED WELL, NO THROMBUS, NO LEAKS TECHNOLOGIST: JACQUE LORA
== END 2023-05-06 15:01 | disposition home or self-care (01) ==
LOC: EKG 11:00
PROVIDERS: ATTEND Internal Medicine
DX: I48.91 Unspecified atrial fibrillation (principal); Z98.890 Other specified postprocedural states
CPT/HCPCS: 93312; 82947; J2250; J7040; J0360; J0461; J3010

== ENCOUNTER 2023-09-30 10:50 | Inpatient (IN) | payer OTHER ==
[2023-09-30] MEDS ORDERED: ACETAMINOPHEN 500 MG TAB ONE (11:24)
--- NOTE | 2023-09-30 11:36 | RAD REPORT ---
EXAM DESCRIPTION: CT - Abdomen Pelvis Wo Contrast - 09/30/2023 11:09 am CLINICAL HISTORY: fever, diarrhea;Abd pain COMPARISON: Chest Pa And Lat (2 Views) dated 09/17/2023 TECHNIQUE: Thin cut axial CT imaging of the abdomen and pelvis was performed without IV contrast. Mu ltiplanar reformats were generated and reviewed. All CT scans are performed using dose optimization technique as appropriate and may include automated exposure control or mA/KV adjustment according to patient size. FINDINGS: Patchy bibasilar airspace opacities. Trace right pleural effusion. The liver, adrenal glands, and pancreas show no suspicious findings. Calcific focus near the liver hi lum, favored to be vascular in nature. Spleen is mildly enlarged measuring 14.8 cm in long axis. Gall bladder and biliary tree are also without suspicious finding. Symmetric renal contour, without suspicious parenchymal findings within limits of noncontrast techniq ue. No evidence of radiopaque calculi or hydroureteronephrosis. No dilated bowel loops or bowel wall thickening. Mild colonic diverticulosis. No free air, free fluid or inflammatory stranding. No hernia, mass or bulky lymphadenopathy. The urinary bladder is without significant finding. Mild prostatomegaly. No suspicious bony findings. IMPRESSION: Patchy bibasilar airspace opacities with trace right pleural effusion, concerning for pn eumonia. Mild splenomegaly. Other incidental findings include colonic diverticulosis and mild prostatomegaly.
[2023-09-30 11:47] LABS: Absolute Lymphocytes (CBC) 0.5 K/uL (0.7-4.9); Hematocrit 33.7 % (39.6-49.0); Lymphocytes % 3.4 % (15.3-44.8); MPV 8.3 fL (7.6-11.3); Platelets 179 thou/uL (152-406); RBC Red Blood Cell Count 4.88 M/uL (4.33-5.43)
[2023-09-30 11:57] LABS: Protime INR 1.24
[2023-09-30 12:06] LABS: Albumin 3.7 g/dL (3.4-5.0); Bilirubin Total 1.6 mg/dL (0.2-1.0); Potassium 3.4 mEq/L (3.5-5.1); Protein, Total 7.2 g/dL (6.4-8.2)
[2023-09-30] MEDS ORDERED: AZITHROMYCIN 500 MG INJ IVPB ONE (12:09)
[2023-09-30] MEDS ORDERED: NA CHLORIDE 0.9% 250 ML ONE ×2 (12:09→12:51)
[2023-09-30] MEDS ORDERED: CEFTRIAXONE 1000 MG/VIAL ONE (12:09)
[2023-09-30 12:13] LABS: Specific Gravity 1.019 (1.005-1.030); Transitional Epithelial <5 /HPF (None Seen); Urine Bacteria None Seen /HPF (<20); Urine Bilirubin NEGATIVE (Negative); Urine Blood Negative (Negative); Urine Clarity Clear (Clear); Urine Color Light-Yellow (Yellow); Urine Glucose 4+ (Over) (Negative); Urine Protein 1+ (Negative); Urine Urobilinogen Normal (Normal); Urine pH 5.5 (5.0-7.0)
[2023-09-30 12:25] LABS: Platelet Estimate ADEQ
[2023-09-30 12:26] LABS: Anisocytosis 1+; Blood Morphology Comment NOTED (NOT SEEN); Hypochromasia 1+; Ovalocytes 1+; Poikilocytosis 1+; Toxic Granulation NOTED
--- NOTE | 2023-09-30 12:37 | ER ---
Nurse's Notes [facility] Name: Spenser Swartz Jr Age: 78 yrs Sex: Male : 1945 Arrival Date: 09/30/2023 Time: 10:50 Bed 13 Private MD: Diagnosis: Severe sepsis without septic shock;Pneumonia, unspecified organism;Dyspnea, unspecified Presentation: 09/30 11:12 Chief complaint: Patient states: EMS reports weakness, dry heaving, and upset stomach cp4 that started yesterday. Coronavirus screen: Vaccine status: Patient reports being unvaccinated. Client denies travel out of the [place] in the last 14 days. At this time, the client does not indicate any symptoms associated with coronavirus-19. Ebola Screen: Patient negative for fever greater than or equal to 101.5 degrees Fahrenheit, and additional compatible Ebola Virus Disease symptoms Patient denies exposure to infectious person. Patient denies travel to an Ebola-affected area in the 21 days before illness onset. No symptoms or risks identified at this time. Risk Assessment: Do you want to hurt yourself or someone else? Patient reports no desire to harm self or others. Onset of symptoms was September 28, 2023. 11:12 Method Of Arrival: EMS: [facility] cp4 11:12 Acuity: AMA 3 cp4 11:13 Initial Sepsis Screen: Does the patient meet any 2 criteria? No. Patient's initial cp4 sepsis screen is negative. Does the patient have a suspected source of infection? No. Patient's initial sepsis screen is negative. Triage Assessment: 11:13 General: Appears in no apparent distress. Behavior is calm, cooperative, appropriate cp4 for age. Pain: Denies pain. Historical: - Allergies: 11:13 Codeine; cp4 11:13 PENICILLINS; cp4 - PMHx: 11:13 Atrial Fib; Diabetes - NIDDM; Parkinson's disease; Hypertension; cp4 - PSHx: 11:13 triple bypass; achilles tendon SX; cp4 - Immunization history:: Adult Immunizations up to date. - Social history:: Smoking status: Patient denies any tobacco usage or history of. - Family history:: not pertinent. - Hospitalizations: : No recent hospitalization is reported. Screenin:06 [facility] ED Fall Risk Assessment (Adult) History of falling in the last 3 months, cp4 including since admission No falls in past 3 months (0 pts) Confusion or Disorientation No (0 pts) Intoxicated or Sedated No (0 pts) Impaired Gait No (0 pts) Mobility Assist Device Used No (0 pt) Altered Elimination No (0 pt) Score/Fall Risk Level 0 - 2 = Low Risk Oriented to surroundings, Maintained a safe environment, Educated pt \T\ family on fall prevention, incl call for assistance when getting out of bed, Assessed \T\ reinforced patient's understanding of fall precautions, Hourly rounding (assess needs \T\ fall precautionary measures) done. Abuse screen: Denies threats or abuse. Nutritional screening: No deficits noted. Tuberculosis screening: No symptoms or risk factors identified. Assessment: 12:06 Reassessment: No changes from previously documented assessment. cp4 Vital Signs: 11:13 BP 139 / 76; Pulse 70; Resp 18; Temp 99.2; Pulse Ox 98% ; FiO2 2 %; cp4 12:00 BP 130 / 60; Pulse 69; Resp 20; Pulse Ox 98% 2 lpm ; cp4 13:00 BP 106 / 61; Pulse 70; Resp 20; Pulse Ox 99% 2 lpm ; cp4 14:00 BP 132 / 66; Pulse 69; Resp 20; Pulse Ox 99% 2 lpm ; cp4 15:00 BP 134 / 57; Pulse 68; Resp 20; Pulse Ox 99% 2 lpm ; cp4 16:00 BP 127 / 60; Pulse 70; Resp 18; Pulse Ox 99% 2 lpm ; cp4 17:00 BP 141 / 65; Pulse 69; Resp 18; Pulse Ox 98% ; cp4 20:00 BP 130 / 77; Pulse 70; Resp 18; Pulse Ox 99% 2 lpm ; cp4 ED Course: 10:57 Patient arrived in ED. rn 10:57 Moisés Irving MD is Attending Physician. rn 11:03 Nazia Kevin is Primary Nurse. cp4 11:09 CT Abd/Pelvis - Without Contrast In Process Unspecified. EDMS 11:13 Triage completed. cp4 11:13 Arm band placed on left wrist. Patient placed in an exam room. cp4 11:53 SARS-COV-2 RT PCR Sent. cp4 11:53 Flu Sent. cp4 11:53 BNP Sent. cp4 11:53 Blood Culture Adult (2) Sent. cp4 12:06 Placed in gown. Bed in low position. Call light in reach. Side rails up X2. cp4 12:07 Inserted saline lock: 22 gauge in right upper arm, using aseptic technique. Blood cp4 collected. 12:36 Luis Irving MD is Hospitalizing Provider. rn 13:13 Chest Single View XRAY In Process Unspecified. EDMS 15:45 BNP Sent. cp4 20:23 No provider procedures requiring assistance completed. cp4 20:23 Patient admitted, IV remains in place. cp4 20:23 Provided Education on: admissions. cp4 Administered Medications: 11:53 Drug: Acetaminophen PO 1000 mg PO once Route: PO; cp4 12:07 Drug: Zithromax IVPB 500 mg IVPB once over 1 hrs; mix in 250 mL NS Route: IVPB; Infused cp4 Over: 1 hrs; Site: right upper arm; 14:09 Follow up: Response: No adverse reaction; IV Status: Completed infusion cp4 12:08 Drug: Rocephin IV 1 grams IV at calculated rate once; Given slow IV push per pharmacy cp4 instructions Route: IV; Rate: calculated rate; Site: right upper arm; 12:24 Follow up: Response: No adverse reaction; IV Status: Completed infusion cp4 12:41 Drug: NS 0.9% IV 250 ml IV at bolus once Route: IV; Rate: bolus; Site: right upper arm; cp4 14:09 Follow up: Response: No adverse reaction; IV Status: Completed infusion cp4 15:45 Follow up: Response: No adverse reaction; IV Status: Completed infusion cp4 Medication: 12:06 VIS not applicable for this client. cp4 Outcome: 12:36 Decision to Hospitalize by Provider. rn 20:36 Admitted to Tele accompanied by tech, via stretcher, with oxygen, Report called to kingsley Ballard 20:36 Condition: stable 20:36 Discharge instructions given to patient, Instructed on the need for admit, 20:53 Patient left the ED. cp4 Signatures: Dispatcher [employer] Moisés Malloy MD MD rn Potter, Christina cp4 Corrections: (The following items were deleted from the chart) 11:14 11:13 PSHx: achilles tendon SX; cp4 cp4
--- NOTE | 2023-09-30 12:37 | EDPHYS ---
Physician Documentation [facility] Name: Spenser Swartz Jr Age: 78 yrs Sex: Male : 1945 Arrival Date: 09/30/2023 Time: 10:50 Bed 13 Private MD: ED Physician Moisés Irving HPI: 09/30 11:13 This 78 yrs old Male presents to ER via EMS with complaints of General Weakness. rn 11:13 Patient reports generalized weakness that began yesterday. Reports subjective fever and rn feeling sick. Reports cough and shortness of breath along with diarrhea. No abdominal pain. No vomiting. Does have a history of congestive heart failure. Denies any changes in lower extremity swelling.. Onset: The symptoms/episode began/occurred last night. Severity of symptoms: At their worst the symptoms were moderate in the emergency department the symptoms are unchanged. The patient has not experienced similar symptoms in the past. Historical: - Allergies: 11:13 Codeine; cp4 11:13 PENICILLINS; cp4 - PMHx: 11:13 Atrial Fib; Diabetes - NIDDM; Parkinson's disease; Hypertension; cp4 - PSHx: 11:13 triple bypass; achilles tendon SX; cp4 - Immunization history:: Adult Immunizations up to date. - Social history:: Smoking status: Patient denies any tobacco usage or history of. - Family history:: not pertinent. - Hospitalizations: : No recent hospitalization is reported. ROS: 11:13 Constitutional: Positive for fever ENT: Negative for nasal congestion Neck: Negative rn for injury, pain, and swelling, Cardiovascular: Negative for chest pain, palpitations, and edema, Respiratory: Positive for cough and shortness of breath Abdomen/GI: Positive for diarrhea MS/Extremity: Negative for injury and deformity, Skin: Negative for injury, rash, and discoloration, Neuro: Positive for generalized weakness and malaise Exam: 11:13 Constitutional: This is a well developed, well nourished patient who is awake, alert, rn and in no acute distress. Head/Face: Normocephalic, atraumatic. ENT: Dry mucous membranes, no stridor Cardiovascular: Tachycardic, regular. No pulse deficits. Respiratory: Expiratory wheezing bilaterally, diminished breath sounds at bases. Mild tachypnea. Abdomen/GI: Soft, non-tender, nondistended MS/ Extremity: Pulses equal, no cyanosis. Neurovascular intact. Full, normal range of motion. Equal circumference. 1+ edema bilaterally with mild erythema, no open wounds Neuro: Awake and alert, GCS 15, oriented to person, place, time, and situation. Cranial nerves II-XII grossly intact. Motor strength 4/5 in all extremities. Sensory grossly intact. 12:46 ECG was reviewed by the Attending Physician. rn Vital Signs: 11:13 BP 139 / 76; Pulse 70; Resp 18; Temp 99.2; Pulse Ox 98% ; FiO2 2 %; cp4 12:00 BP 130 / 60; Pulse 69; Resp 20; Pulse Ox 98% 2 lpm ; cp4 13:00 BP 106 / 61; Pulse 70; Resp 20; Pulse Ox 99% 2 lpm ; cp4 14:00 BP 132 / 66; Pulse 69; Resp 20; Pulse Ox 99% 2 lpm ; cp4 15:00 BP 134 / 57; Pulse 68; Resp 20; Pulse Ox 99% 2 lpm ; cp4 16:00 BP 127 / 60; Pulse 70; Resp 18; Pulse Ox 99% 2 lpm ; cp4 17:00 BP 141 / 65; Pulse 69; Resp 18; Pulse Ox 98% ; cp4 20:00 BP 130 / 77; Pulse 70; Resp 18; Pulse Ox 99% 2 lpm ; cp4 MDM: 10:57 Patient medically screened. rn 12:30 ED course: Patient with congestive heart failure, elevated lactate, will be gentle with rn fluids, at this time 1 250 cc bolus ordered given already 1+ edema and pleural effusion on chest imaging along with elevated BNP.. 12:34 Differential Diagnosis. rn 12:34 Data reviewed: vital signs, nurses notes, lab test result(s), radiologic studies, CT rn scan, and as a result, I will admit patient. Consideration of Admission/Observation Patient was admitted/placed on observation. Escalation of care including admission/observation considered. Care significantly affected by the following chronic conditions: Diabetes, Hypertension, Congestive Heart Failure. Counseling: I had a detailed discussion with the patient and/or guardian regarding the historical points, exam findings, and any diagnostic results supporting the discharge/admit diagnosis, lab results, radiology results, the need for further work-up and treatment in the hospital. ED course: Patient with fever, pneumonia as source, elevated lactate and WBC. Blood cultures obtained, antibiotics ordered and administered. Lactate is elevated but less than 4 and no clinical signs of shock to indicate need for full sepsis bolus, will give fluids as needed given congestive heart failure and already volume overload status.. 09/30 10:58 Order name: Blood Culture Adult (2) rn 09/30 10:58 Order name: CBC with Diff; Complete Time: 12:29 rn 09/30 10:58 Order name: CMP; Complete Time: 12:29 rn 09/30 10:58 Order name: Lactate w/ 2H reflex if indic.; Complete Time: 12:29 rn 09/30 10:58 Order name: Protime (+inr); Complete Time: 12:29 rn 09/30 10:58 Order name: Ptt, Activated; Complete Time: 12:29 rn 09/30 10:58 Order name: Urinalysis w/ reflexes; Complete Time: 12:29 rn 09/30 10:58 Order name: BNP; Complete Time: 12:29 rn 09/30 10:58 Order name: Flu; Complete Time: 12:29 rn 09/30 10:58 Order name: SARS-COV-2 RT PCR; Complete Time: 12:29 rn 09/30 12:25 Order name: Manual Differential; Complete Time: 12:29 EDLA 09/30 12:40 Order name: Glucose, Ancillary Testing; Complete Time: 12:48 EDLA 09/30 14:49 Order name: BNP cp4 09/30 15:48 Order name: NT PRO-BNP EDMS 09/30 18:40 Order name: Glucose, Ancillary Testing EDLA 09/30 10:58 Order name: Chest Single View XRAY; Complete Time: 13:25 rn 09/30 10:59 Order name: CT Abd/Pelvis - Without Contrast; Complete Time: 11:38 rn 11 14:05 Order name: Echo with Doppler EDLA 09/30 15:32 Order name: CT EDLA 09/30 10:58 Order name: EKG; Complete Time: 10:59 rn 09/30 10:58 Order name: Accucheck; Complete Time: 11:04 rn 09/30 10:58 Order name: Cardiac monitoring; Complete Time: 11:04 rn 09/30 10:58 Order name: EKG - Nurse/Tech; Complete Time: 11:53 rn 09/30 10:58 Order name: IV Saline Lock - Large Bore; Complete Time: 11:04 rn 09/30 10:58 Order name: Labs collected and sent; Complete Time: 11:53 rn 09/30 10:58 Order name: O2 Per Protocol; Complete Time: 11: rn 09/30 10:58 Order name: O2 Sat Monitoring; Complete Time: 11:04 rn 09/30 10:58 Order name: Vital Signs; Complete Time: 11:04 rn EC:46 Rate is 70 beats/min. Left axis deviation noted. QRS is positive in lead I and negative rn in lead aVF. QRS interval is prolonged at 186 msec. No Q waves. T waves are Normal. No ST changes noted. Clinical impression: paced rhythm. Interpreted by me. Reviewed by me. Administered Medications: 11:53 Drug: Acetaminophen PO 1000 mg PO once Route: PO; cp4 12:07 Drug: Zithromax IVPB 500 mg IVPB once over 1 hrs; mix in 250 mL NS Route: IVPB; Infused cp4 Over: 1 hrs; Site: right upper arm; 14:09 Follow up: Response: No adverse reaction; IV Status: Completed infusion cp4 12:08 Drug: Rocephin IV 1 grams IV at calculated rate once; Given slow IV push per pharmacy cp4 instructions Route: IV; Rate: calculated rate; Site: right upper arm; 12:24 Follow up: Response: No adverse reaction; IV Status: Completed infusion cp4 12:41 Drug: NS 0.9% IV 250 ml IV at bolus once Route: IV; Rate: bolus; Site: right upper arm; cp4 14:09 Follow up: Response: No adverse reaction; IV Status: Completed infusion cp4 15:45 Follow up: Response: No adverse reaction; IV Status: Completed infusion cp4 Disposition Summary: 09/30/23 12:36 Hospitalization Ordered Notes: Hospitalization Status: Inpatient Admission rn Provider: Luis Irving rn Condition: Stable rn Problem: new rn Symptoms: have improved rn Bed/Room Type: Standard rn Location: Telemetry/MedSurg (Inpatient)(09/30/23 20:10) rv1 Room Assignment: 206(09/30/23 20:10) rv1 Diagnosis - Severe sepsis without septic shock rn - Pneumonia, unspecified organism rn - Dyspnea, unspecified rn Forms: - Medication Reconciliation Form rn - SBAR form rn - Leadership Thank You Letter rn Signatures: Dispatcher [employer] Angie Calderon bd Moisés Irving MD MD rn Caro Mora rv1 Nazia Kevin cp4 Corrections: (The following items were deleted from the chart) 11:14 11:13 PSHx: achilles tendon SX; cp4 cp4 12:37 12:36 Acute kidney failure, unspecified rn rn 17:52 12:36 Telemetry/MedSurg (Inpatient) nlely bd 17:52 12:36 rn bd 20:10 17:52 [facility] ER HOLD bd rv1 20:10 17:52 ERHOLD- bd rv1
--- NOTE | 2023-09-30 13:23 | RAD REPORT ---
EXAM DESCRIPTION: Dionnat Single View09/30/2023 1:11 pm CLINICAL HISTORY: Cough COMPARISON: August 2023 FINDINGS: Pulmonary vascular congestion Mild bibasilar opacities may represent pneumonia or atelectasis Heart is moderately enlarged. Pacemaker leads in place. Postsurgical changes involve the chest
--- NOTE | 2023-09-30 13:50 | P.HP ---
Certification for Inpatient Patient admitted to: Inpatient With expected LOS: <2 Midnights Patient will require the following post-hospital care: None Practitioner: I am a practitioner with admitting privileges, knowledge of patient current condition, hospital course, and medical plan of care. Services: Services provided to patient in accordance with Admission requirements found in Title 42 Section 412.3 of the Code of Federal Regulations Patient History Date of Service: 09/30/23 Reason for admission: acute on chronic heart failure History of Present Illness: 78-year-old male with a past medical history of atrial fibrillation, diabetes [id number], Parkinson's, hypertension, presents to the emergency room with generalized weakness. HPI limited, spoke with patients son, he reports he was ok yesterday, has known reported weakness, Son reports not feeling well and is worse than the last 24 hours. Reports associated cough and shortness of breath with loose stools, reports lower extremity edema. Denies chest pain, abdominal pain, NV. r Plan to admit for - Severe sepsis without septic shock, Pneumonia, unspecified organism, Dyspnea, unspecified, acute on chronic heart failure. Laboratory evaluation with elevated lactic 2.3, leukocytosis 15.90, microcytic anemia 10.3, 33.7, mild hyponatremia 134, mild hypokalemia 3.4, acute on chronic kidney injury unknown baseline BUN 26 creatinine 2.04, SARS negative, UA unremarkable chest x-ray FINDINGS: Pulmonary vascular congestion. Mild bibasilar opacities may represent pneumonia or atelectasis. Heart is moderately enlarged.Pacemaker leads in place. Postsurgical changes involve the ches, BNP 3853, Allergies codeine Allergy (Verified 09/17/23 09:11) Itching Penicillins Allergy (Verified 09/17/23 09:11) Rash Home Medications: Atorvastatin Calcium [Lipitor] 40 mg PO BEDTIME 05/12/18 Aspirin 1 tab PO DAILY 10/10/20 Doxazosin Mesylate 1 tab PO BEDTIME 10/10/20 Gabapentin 300 mg PO BEDTIME 10/10/20 Dapagliflozin Propanediol [Farxiga] 1 tab PO DAILY 04/05/22 Carbidopa/Levodopa [Carbidopa-Levodopa 25-100 Tab] 2 tab PO TID 09/20/22 Pramipexole [Mirapex*] 1 tab PO TID 09/20/22 Furosemide [Lasix*] 40 mg PO DAILY PRN 10/10/22 Insulin Glargine/Lixisenatide [Soliqua 100 Unit-33 Mcg/ml Pen] 20 units SQ DAILY 09/30/23 - Past Medical/Surgical History Diabetic: Yes -: Hypertension -: DM type 2 -: Chronic atrial fibrillation -: Coronary artery disease -: Benign Tremors -: CKD 4 -: CABG -: Rotator cuff surgery Psychosocial/ Personal History: Patient lives at home with his - Family History Sister -: Diabetes Father -: Lung disease Notes: emphysema - Social History Alcohol use: No CD- Drugs: No Caffeine use: No Review of Systems PER HPI Physical Examination - Physical Exam General: Confused HEENT: Atraumatic, Normocephalic Neck: Supple, 2+ carotid pulse no bruit Respiratory: Diminished Cardiovascular: Regular rate/rhythm, Edema (BLE ) Gastrointestinal: Normal bowel sounds, Soft and benign Musculoskeletal: No clubbing, No swelling Integumentary: Other (dry skin BLE) Neurological: Other (confused, lethargic) - Studies Laboratory Data (last 24 hrs) 09/30/23 09/30/23 09/30/23 11:35 11:35 11:35 WBC 15.90 H Hgb 10.3 L Hct 33.7 L Plt Count 179 PT 13.6 H INR 1.24 APTT 33.9 Sodium 134 L Potassium 3.4 L BUN 26 H Creatinine 2.04 H Glucose 241 H Total Bilirubin 1.6 H AST 13 L ALT 13 L Alkaline Phosphatase 167 H Microbiology Data (last 24 hrs): 09/30/23 11:40 Nasopharnyx Influenza Type A Antigen Screen - Final 09/30/23 11:40 Nasopharnyx Influenza Type B Antigen Screen - Final Assessment and Plan - Plan Assessment/Plan Acute on chronic heart failure, ukn baseline cardiomegealy severe sepsis without shock secondary to pneumonia Metabolic encephalopathy secondary to sepsis cardiology consult gentle diureiss sepsis gentle IVF due to known heart failure trend wbc, lactic leukocytosis 15.90, elevated lactic 2.3 SARS negative, UA unremarkable chest x-ray FINDINGS: Pulmonary vascular congestion. Mild bibasilar opacities may represent pneumonia or atelectasis. Heart is moderately enlarged.Pacemaker leads in place. Postsurgical changes involve the ches, BNP 3853, CT Head IMPRESSION: No acute intracranial abnormality is seen If patient's symptoms persist MRI of the brain would be recommended [facility] 09/19/2023 1. Left main is 100% occluded. 2. RCA; diffuse 90% and then becomes 100% occluded. Graft Study: 1. Widely patent OBREGON to LAD. 2. Widely patent SVG to RCA. 3. Occluded SVG to OM. 4. LVEDP was elevated between 25 and 30 mmHg. Right heart cath numbers: RA pressure is 25/29, mean 26. RV pressure 95/17, mean of 26. PA pressure was 95/40, mean of 59. Pulmonary wedge pressure was between 40 and 45, and the cardiac output was 4.66 L/minute. Mean gradient across the aortic valve was 18 to 20 mmHg and valve area was 1.5 sq cm. Conclusions: 1. Severe cachil dehe coronary artery disease with occluded RCA and left main with patent OBREGON to LAD and SVG graft to RCA. 2. Severely elevated filling pressure and severe pulmonary hypertension. 3. Moderate aortic valve stenosis as outlined above. microcytic anemia HH10.3, 33.7,trend HH hyponatremia sodium 134,, trend electrolytes, replace prn hypokalemia potassium 3.4 trend electroyltes replace PRN atrial fibrillation resume appop home meds acute on chronic kidney injury unk baseline Neph consult trend kidney function acute on chronic kidney injury unknown baseline BUN 26 creatinine 2.04 diabetes [id number] SSI, Parkinson's hypertension resume approp home meds Diet Renal Full Code DVT heparin, Discharge Plan: Home - Advance Directives Does patient have a Living Will: No Does patient have a Durable POA for Healthcare: No - Code Status/Comfort Care Code Status: Full Code Critical Care: No Time Spent Managing Pts Care (In Minutes): 55
--- OUTSIDE RECORDS SUMMARY | 2023-09-30 14:36 | XMS REPORT | Continuity of Care Document ---
Author Name Unknown Address [address] [facility] [address] [place] [address] [facility] Address [address] [facility] [address] [place] [address] Care Team Providers Care Dental Ceramist Assistant Name Role Phone None, None Primary Care Physician Unavailab JOSEE Laughlin Attending Clinician Unavailab EH Burton Attending Clinician Unavailable Josee Plasencia APRN Attending Clinician ARAMIS ANTUNEZ Attending Clinician Unavailable Mickey Briggs Attending Clinician Unavailable Kristina Hodge Attending Clinician Unavailable JONNY TODD Attending Clinician Unavailable SHAWNEE HERNANDEZ Attending Clinician Unavail able FADIA RIVERA Attending Clinician Unavailable Raoul Dailey Admitting Clinician Unavailable Manuel Gandhi Admitting Clinician Unavailable Payers Payer Name Policy Type Policy Number Effective Date Expirati on Date Source [employer] MEDICARE O [id number] 1 00:00:00 [employer] MEDICARE PPO [id number] 1 00:00:00 Problems Condition Name Condition Details Condition Category Status Onset Date Resolution Date Last Treatment Date Treating Clinician Comments Source Presence of Watchman left atrial appendage closure device Presence of Watchman left atrial appendage closure device Disease Active 8- 00:00: 00 [facility] Pneumonia Pneumonia Disease Active 8-17 00:00: 00 [facility] Congestive heart failure Congestive heart failure Disease Active 817 00:00: 00 [facility] Bradycardi a Bradycardi a Disease Active 817 00:00: 00 [facility] Pacemaker Pacemaker Disease Active 817 00:00: 00 [facility] Melanoma Melanoma Disease Active 2- 00:00: 00 [facility] Parkinson' s disease Parkinson' s disease Disease Active 2021-10 0-13 00:00: 00 Overview: Formattin g of this note might be different from the original. Last Assessmen t & Plan: Formattin g of this note might be different from the original. He was recently diagnosed with Parkinson 's. He states that since beginning the medicatio n the tremors have improved. He attended physical therapy which was helpful in teaching him proper ways to walk. He will continue with the Sinemet and Mirapex. He will continue to follow-up with his local provider. [facility] Chronic atrial fibrillati on Chronic atrial fibrillati on Disease Active 2020-10 0 00:00: 00 Overview: Formattin g of this note might be different from the original. Last Assessmen t & Plan: Formattin g of this note might be different from the original. He is currently in sinus rhythm. He continues to follow with his local cardiolog ist and takes Xarelto 15 mg daily. Continue cardiac medicatio ns, as above. [facility] Hyperkalem ia Hyperkalem ia Disease Active 2020-10 0 00:00: 00 Overview: Formattin g of this note might be different from the original. Last Assessmen t & Plan: Formattin g of this note might be different from the original. Potassium is elevated to 5.7 and as above he has an elevated creatinin e of 1.88. He states that his physician is aware that he has an elevated creatinin e but he is unsure what his potassium has been. I have given extensive education on high potassium foods and what to avoid. Nephrotox ic agents were also discussed with the patient. I have instructe d Mr. Ritchei to follow-up with his local PCP for repeat labs. A message has also been sent to Dr. Gandhi with his recent labs. [facility] Hyperlipid emia Hyperlipid emia Disease Active 2020-10 00:00: 00 Overview: Formattin g of this note might be different from the original. Last Assessmen t & Plan: Formattin g of this note might be different from the original. As above he is followed by his local cardiolog ist who manages his hyperlipi demia. He will continue with atorvasta tin 40 mg daily. He will continue to avoid fatty and fried foods and increase activity. [facility] Neuropathy Neuropathy Disease Active 2020-10 00:00: 00 Overview: Formattin g of this note might be different from the original. Last Assessmen t & Plan: Formattin g of this note might be different from the original. The neuropath y is overall stable; continue gabapenti n 300 mg at bedtime. 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 Last Assessmen t & Plan: Formattin g of this note might be different from the original. Refer to plan under history of malignant melanoma of the skin. [facility] Tremor Tremor Disease Active 2020-10 00:00: 00 Overview: Formattin g of this note might be different from the original. Last Assessmen t & Plan: Formattin g of this note might be different from the original. He has a tremor for which she is being followed by a local neurologi st. He is being evaluated for Parkinson 's. [facility] Type 2 diabetes mellitus Type 2 diabetes mellitus Disease Recurre nce 2020-10 00:00: 00 Overview: Formattin g of this note might be different from the original. Last Assessmen t & Plan: Formattin g of this note might be different from the original. Blood glucose is 117 today; he continues with Farxiga 5 mg daily. His local PCP continues to manage his diabetes. [facility] History of malignant melanoma of skin History of malignant melanoma of skin Disease Active 2019-10 00:00: 00 Overview: Formattin g of this note might be different from the original. Last Assessmen t & Plan: Formattin g of this note might be different from the original. Robe Ritchie is a 77 y.o. 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 This was treated with a wide local excision and negative sentinel node biopsy. He developed local recurrenc e in the left ear in 2010. He has remained free of disease since this time and has been followed with active surveilla nce and in 07/2021 kiki rodriguez to [facility]. He returns today with follow-up and restaging scans. LDH is 209, ultrasoun d of the head and neck is negative for metastati c cervical or parotid adenopath y and chest x-ray without acute or metastati c disease. I have personall y reviewed the imaging and agree there is no evidence of disease recurrenc e. As he is now 10 years from his last recurrenc e and therapy it is recommend ed to continue with annual visits in the [facility] with chest x-ray and ultrasoun d to rule out disease recurrenc e. Therefore , he will return in 07/2023. Robe Ritchie was instructe d to continue with routine dermatolo gy exams as well as self skin and fritz exams and to notify us of any concernin g areas or further questions . He was reminded on sun safety and encourage d to use sunscreen liberally and to wear longsleev e shirts, hats and sunglasse s when out in the sun. He was given education on the role of the [facility] and educated on the importanc e of [facility]. Encourage d to continue with routine physical, ophthalmo logy and dental exams. [facility] Hypertensi on Hypertensi on Disease Recurre nce 2019-10 0- 00:00: 00 Overview: Formattin g of this note might be different from the original. Last Assessmen t & Plan: Formattin g of this note might be different from the original. His blood pressure is 150/69 today in clinic. He continues to be followed by a local cardiolog ist. He will continue with Norvasc 10 mg daily, lisinopri l 20 mg daily, hydralazi ne 10 mg 3 times daily, Lasix 20 mg daily, and aspirin daily. He states that his doctor recently cut down the lisinopri l and Lasix secondary to his kidney function. [facility] Serum creatinine raised Serum creatinine raised Disease Active 7- 00:00: 00 Overview: Formattin g of this note might be different from the original. Last Assessmen t & Plan: Formattin g of this note might be different from the original. His creatinin e is 2.27 with BUN 59. Electroly len are unremarka ble. He states that his cardiolog ist recently dropped his Lasix and lisinopri l secondary to elevated creatinin e. He is now seeing a nephrolog ist and is scheduled for a follow-up next month. We discussed nephrotox ic agents that he should avoid. [facility] Fatty liver Fatty liver Disease Active 05-07 00:00: 00 [facility] Allergies, Adverse Reactions, Alerts Allergy Name Allergy Type Status Severity Reaction(s) Onset Date Inactive Date Treating Clinician Comments Source [facility] Drug Class Active Low Rash 04-13 00:00: 00 MD Sunil grider CODEINE SULFATE DRUG INGREDI Active 04-13 00:00: 00 MD Sunil grider [facility] Drug Class Active Low Rash 04-13 00:00: 00 MD Sunil grider CODEINE SULFATE DRUG INGREDI Active 04-13 00:00: 00 MD Sunil grider [facility] Drug Class Active Low Rash 04-13 00:00: 00 MD Sunil grider CODEINE SULFATE DRUG INGREDI Active 04-13 00:00: 00 MD Sunil grider [facility] Drug Class Active Low Rash 04-13 00:00: 00 MD Sunil grider CODEINE SULFATE DRUG INGREDI Active 04-13 00:00: 00 MD Sunil grider [facility] Drug Class Active Low Rash 04-13 00:00: 00 MD Sunil grider CODEINE SULFATE DRUG INGREDI Active 04-13 00:00: 00 MD Sunil grider [facility] Drug Class Active Low Rash 04-13 00:00: 00 MD Sunil grider CODEINE SULFATE DRUG INGREDI Active 04-13 00:00: 00 MD Sunil grider [facility] Drug Class Active Low Rash 04-13 00:00: 00 MD Sunil grider CODEINE SULFATE DRUG INGREDI Active 04-13 00:00: 00 MD Sunil grider [facility] Drug Class Active Low Rash 04-13 00:00: 00 MD Sunil grider CODEINE SULFATE DRUG INGREDI Active 04-13 00:00: 00 MD Sunil grider [facility] Drug Class Active Low Rash 04-13 00:00: 00 MD Sunil grider CODEINE SULFATE DRUG INGREDI Active 04-13 00:00: 00 MD Sunil grider [facility] Drug Class Active Low Rash 04-13 00:00: 00 MD Sunil grider CODEINE SULFATE DRUG INGREDI Active 04-13 00:00: 00 MD Sunil grider [facility] Drug Class Active Low Rash 04-13 00:00: 00 MD Sunil grider CODEINE SULFATE DRUG INGREDI Active 04-13 00:00: 00 MD Sunil grider [facility] Drug Class Active Low Rash 04-13 00:00: 00 MD Sunil grider CODEINE SULFATE DRUG INGREDI Active 04-13 00:00: 00 MD Sunil grider [facility] Drug Class Active Low Rash 04-13 00:00: 00 MD Sunil grider CODEINE SULFATE DRUG INGREDI Active 04-13 00:00: 00 MD Sunil grider [facility] Drug Class Active Low Rash 04-13 00:00: 00 MD Sunil grider CODEINE SULFATE DRUG INGREDI Active 04-13 00:00: 00 MD Sunil grider [facility] Drug Class Active Low Rash 04-13 00:00: 00 MD Sunil grider CODEINE SULFATE DRUG INGREDI Active 04-13 00:00: 00 MD Sunil grider [facility] Drug Class Active Low Rash 04-13 00:00: 00 MD Sunil grider CODEINE SULFATE DRUG INGREDI Active 04-13 00:00: 00 MD Sunil grider [facility] Drug Class Active Low Rash 04-13 00:00: 00 MD Sunil grider CODEINE SULFATE DRUG INGREDI Active 04-13 00:00: 00 MD Sunil grider [facility] Drug Class Active Low Rash 04-13 00:00: 00 MD Sunil grider CODEINE SULFATE DRUG INGREDI Active 04-13 00:00: 00 MD Sunil grider [facility] Drug Class Active Low Rash 04-13 00:00: 00 MD Sunil grider CODEINE SULFATE DRUG INGREDI Active 04-13 00:00: 00 MD Sunil grider [facility] Drug Class Active Low Rash 04-13 00:00: 00 MD Sunil grider CODEINE SULFATE DRUG INGREDI Active 04-13 00:00: 00 MD Sunil grider [facility] Drug Class Active Low Rash 04-13 00:00: 00 MD Sunil grider CODEINE SULFATE DRUG INGREDI Active 04-13 00:00: 00 MD Sunil grider [facility] Drug Class Active Low Rash 04-13 00:00: 00 MD Sunil grider CODEINE SULFATE DRUG INGREDI Active 04-13 00:00: 00 MD Sunil grider [facility] Drug Class Active Low Rash 04-13 00:00: 00 MD Sunil grider CODEINE SULFATE DRUG INGREDI Active 04-13 00:00: 00 MD Sunil grider [facility] Drug Class Active Low Rash 04-13 00:00: 00 MD Sunil grider CODEINE SULFATE DRUG INGREDI Active 04-13 00:00: 00 MD Sunil grider [facility] Drug Class Active Low Rash 04-13 00:00: 00 MD Sunil grider CODEINE SULFATE DRUG INGREDI Active 04-13 00:00: 00 MD Sunil grider [facility] Drug Class Active Low Rash 04-13 00:00: 00 MD Sunil grider CODEINE SULFATE DRUG INGREDI Active 04-13 00:00: 00 MD Sunil grider [facility] Drug Class Active Low Rash 04-13 00:00: 00 MD Sunil grider CODEINE SULFATE DRUG INGREDI Active 04-13 00:00: 00 MD Sunil grider [facility] Drug Class Active Low Rash 04-13 00:00: 00 MD Sunil grider CODEINE SULFATE DRUG INGREDI Active 04-13 00:00: 00 MD Sunil grider [facility] Drug Class Active Low Rash 04-13 00:00: 00 MD Sunil grider CODEINE SULFATE DRUG INGREDI Active 04-13 00:00: 00 MD Sunil grider [facility] Drug Class Active Low Rash 04-13 00:00: 00 MD Sunil grider CODEINE SULFATE DRUG INGREDI Active 04-13 00:00: 00 MD Sunil grider [facility] Drug Class Active Low Rash 04-13 00:00: 00 MD Sunil grider CODEINE SULFATE DRUG INGREDI Active 04-13 00:00: 00 MD Sunil grider [facility] Drug Class Active Low Rash 04-13 00:00: 00 MD Sunil grider CODEINE SULFATE DRUG INGREDI Active 04-13 00:00: 00 MD Sunil grider [facility] Drug Class Active Low Rash 04-13 00:00: 00 MD Sunil grider CODEINE SULFATE DRUG INGREDI Active 04-13 00:00: 00 MD Sunil grider [facility] Drug Class Active Low Rash 04-13 00:00: 00 MD Sunil grider CODEINE SULFATE DRUG INGREDI Active 04-13 00:00: 00 MD Sunil grider [facility] Drug Class Active Low Rash 04-13 00:00: 00 MD Sunil grider CODEINE SULFATE DRUG INGREDI Active 04-13 00:00: 00 MD Sunil grider [facility] Drug Class Active Low Rash 04-13 00:00: 00 MD Sunil grider CODEINE SULFATE DRUG INGREDI Active 04-13 00:00: 00 MD Sunil grider [facility] Drug Class Active Low Rash 04-13 00:00: 00 MD Sunil grider CODEINE SULFATE DRUG INGREDI Active 04-13 00:00: 00 MD Sunil grider [facility] Drug Class Active Low Rash 04-13 00:00: 00 MD Sunil grider Codeine Propensi ty to adverse reaction s Active 04-13 00:00: 00 Patient not sure if he is allergic to codeine [facility]icill ins Propensi ty to adverse reaction s Active Rash 04-13 00:00: 00 [facility] CODEINE SULFATE DRUG INGREDI Active 04-13 00:00: 00 MD Sunil grider [facility] Drug Class Active Low Rash 04-13 00:00: 00 MD Sunil grider CODEINE SULFATE DRUG INGREDI Active 04-13 00:00: 00 MD Sunil grider [facility] Drug Class Active Low Rash 04-13 00:00: 00 MD Sunil grider CODEINE SULFATE DRUG INGREDI Active 04-13 00:00: 00 MD Sunil grider [facility] Drug Class Active Low Rash 04-13 00:00: 00 MD Sunil grider CODEINE SULFATE DRUG INGREDI Active 04-13 00:00: 00 MD Sunil grider [facility] Drug Class Active Low Rash 04-13 00:00: 00 MD Sunil grider CODEINE SULFATE DRUG INGREDI Active 04-13 00:00: 00 MD Sunil grider [facility] Drug Class Active Low Rash 04-13 00:00: 00 MD Sunil grider CODEINE SULFATE DRUG INGREDI Active 04-13 00:00: 00 MD Sunil grider [facility] Drug Class Active Low Rash 04-13 00:00: 00 MD Sunil grider CODEINE SULFATE DRUG INGREDI Active 04-13 00:00: 00 MD Sunil grider [facility] Drug Class Active Low Rash 04-13 00:00: 00 MD Sunil grider CODEINE SULFATE DRUG INGREDI Active 04-13 00:00: 00 MD Sunil grider [facility] Drug Class Active Low Rash 04-13 00:00: 00 MD Sunil grider CODEINE SULFATE DRUG INGREDI Active 04-13 00:00: 00 MD Sunil grider [facility] Drug Class Active Low Rash 04-13 00:00: 00 MD Sunil grider CODEINE SULFATE DRUG INGREDI Active 04-13 00:00: 00 MD Sunil grider [facility] DA Active SV RASHES 2012-10 00:00: 00 [facility] codeine DA Active SV ITCHING 2012-10 00:00: 00 [facility] Social History Social Habit Start Date Stop Date Quantity Comments Source History of tobacco use Cigarette Smoker [facility] Alcohol intake 2023-06-10 00:00:00 2023-06-10 00:00:00 Ex-drinker (finding) [facility] Exposure to SARS-CoV-2 (event) 2022-11-12 00:00:00 2022-11-22 14:16:00 Not sure [facility] Tobacco use and exposure 2022-11-22 00:00:00 2022-11-22 00:00:00 Smokeless tobacco non-user [facility] Sex Ass[birth year] At 1945 00:00:00 1945 00:00:00 [facility] Smoking Status Start Date Stop Date Source Ex-smoker 2022-11-22 00:00:00 2022-11-22 00:00:00 [facility] Medications Ordered Medication Name Filled Medication Name Start Date Stop Date Current Medication? Ordering Clinician Indication Dosage Frequency Signature (SIG) Comments Components Source pramipexole (Mirapex) 0.25 MG tablet 06-10 10:29: 47 Yes .25mg [id number] 3D Take 0.25 mg by mouth in the morning and 0.25 mg at noon and 0.25 mg in the evening. [facility] Apoaequorin (PREVAGEN PO) 06-10 10:29: 47 Yes Take by mouth. [facility] Multiple Vitamins-Mi nerals (PRESERVISI ON AREDS 2 PO) 06-10 10:29: 47 Yes Take by mouth. [facility] ferrous gluconate (Fergon) 324 (38 Fe) MG tablet 06-10 10:27: 08 06-10 00:00 :00 No Take by mouth. [facility] lisinopril 40 MG tablet 06-10 10:26: 06 06-10 00:00 :00 No 20mg Take 20 mg by mouth. [facility] aspirin 81 MG chewable tablet 06-10 10:26: 04 Yes 81mg Chew 81 mg. [facility] atorvastati n (Lipitor) 40 MG tablet 06-10 10:26: 04 Yes 40mg Take 40 mg by mouth. [facility] doxazosin (Cardura) 2 MG tablet 06-10 10:26: 04 Yes 2mg Take 2 mg by mouth. [facility] gabapentin (Neurontin) 300 MG capsule 06-10 10:26: 04 Yes 300mg Take 300 mg by mouth. [facility] metoprolol succinate XL (Toprol-XL) 25 MG 24 hr tablet 4-13 00:00: 00 Yes 25mg Q.5D Take 25 mg by mouth in the morning and 25 mg before bedtime. [facility] rivaroxaban (Xarelto) 15 MG tablet 11-22 14:47: 44 11-22 00:00 :00 No 15mg Take 15 mg by mouth. [facility] aspirin 81 MG chewable tablet 11-22 14:47: 11 Yes 81mg Chew 81 mg. [facility] atorvastati n (Lipitor) 40 MG tablet 11-22 14:47: 11 Yes 40mg Take 40 mg by mouth. [facility] doxazosin (Cardura) 2 MG tablet 11-22 14:47: 11 Yes 2mg Take 2 mg by mouth. [facility] ferrous gluconate (Fergon) 324 (38 Fe) MG tablet 11-22 14:47: 11 Yes Take by mouth. [facility] gabapentin (Neurontin) 300 MG capsule 11-22 14:47: 11 Yes 300mg Take 300 mg by mouth. [facility] lisinopril 40 MG tablet 11-22 14:47: 11 Yes 20mg Take 20 mg by mouth. [facility] amLODIPine (Norvasc) 10 MG tablet 11-22 14:46: 10 11-22 00:00 :00 No 10mg Take 10 mg by mouth. [facility] allopurinol (Zyloprim) 300 MG tablet 11-22 14:45: 24 11-22 00:00 :00 No 300mg Take 300 mg by mouth. [facility] Eliquis 5 MG tablet 11-06 00:00: 00 Yes 5mg Q.5D Take 5 mg by mouth in the morning and 5 mg before bedtime. [facility] Eliquis 5 MG tablet 11-06 00:00: 00 Yes 5mg Q.5D Take 5 mg by mouth in the morning and 5 mg before bedtime. [facility] amiodarone (Pacerone) 200 MG tablet 2021-10 00:00: 00 11-22 00:00 :00 No 200mg 200 mg. [facility] furosemide (Lasix) 40 MG tablet 2021-10 00:00: 00 Yes 40mg 40 mg. [facility] Umeclidiniu m-Vilantero l 62.5-25 MCG/ACT aerosol powder 2021-10- 00:00: 00 Yes 1{puff} 1 puff. [facility] furosemide (Lasix) 40 MG tablet 2021-10 00:00: 00 Yes 40mg 40 mg. [facility] Woody mora-Vilantero l 62.5-25 MCG/ACT aerosol powder 2021-10 00:00: 00 06-10 00:00 :00 No 1{puff} 1 puff. [facility] pantoprazol e (ProtoNix) 40 MG EC tablet 2021-10 00:00: 00 11-22 00:00 :00 No 40mg 40 mg. [facility] Insulin Glargine-Li xisenatide 100-33 UNT-MCG/ML solution pen-injecto r 2021-10 00:00: 00 Yes BEFORE MEALS AND AT BEDTIME [facility] sodium bicarbonate 325 MG tablet 2021-10 00:00: 00 Yes 650mg 650 mg. [facility] Insulin Glargine-Li xisenatide 100-33 UNT-MCG/ML solution pen-injecto r 2021-10 00:00: 00 Yes BEFORE MEALS AND AT BEDTIME [facility] sodium bicarbonate 325 MG tablet 2021-10 00:00: 00 06-10 00:00 :00 No 650mg 650 mg. [facility] carbidopa-l evodopa (Sinemet) 25-100 MG tablet - 00:00: 00 Yes 2{tbl} 2 tablets. [facility] carbidopa-l evodopa (Sinemet) 25-100 MG tablet 9- 00:00: 00 Yes 2{tbl} 2 tablets. [facility] hydrALAZINE (Apresoline ) 25 MG tablet - 00:00: 00 Yes 25mg 25 mg. [facility] hydrALAZINE (Apresoline ) 25 MG tablet - 00:00: 00 Yes 25mg 25 mg. [facility] predniSONE (Deltasone) 20 MG tablet 6-16 00:00: 00 11-22 00:00 :00 No 20mg 20 mg. [facility] dapaglifloz in (Farxiga) 5 MG 6-15 00:00: 00 Yes 1{tbl} 1 tablet. [facility] dapaglifloz in (Farxiga) 5 MG 6-15 00:00: 00 Yes 1{tbl} 1 tablet. [facility] pramipexole (Mirapex) 0.125 MG tablet 2- 00:00: 00 11-22 00:00 :00 No 1{tbl} [id number] 3D Take 1 tablet by mouth in the morning and 1 tablet at noon and 1 tablet in the evening. [facility] Vital Signs Vital Name Observation Time Observation Value Comments S our Systolic blood pressure 2023-06-10 15:20:00 131 mm[Hg] [facility] Diastolic blood pressure 2023-06-10 15:20:00 75 mm[Hg] [facility] Heart rate 2023-06-10 15:20:00 69 /min [facility] Body height 2023-06-10 15:20:00 [facility]6 [facility] 2023-06-10 15:20:00 [facility].791 [facility] BMI 2023-06-10 15:20:00 [facility] Sy[facility] blood pressure 2022-11-22 20:43:00 95 mm[Hg] [facility] Diastolic blood pressure 2022-11-22 20:43:00 58 mm[Hg] [facility] Heart rate 2022-11-22 20:43:00 70 /min [facility] Body height 2022-11-22 20:43:00 172.7 cm [facility] 2022-11-22 20:43:00 92.987 [facility] BMI 2022-11-22 20:43:00 31.17 kg/m2 [facility] Procedures Procedure Date / Time Performed Performing Clinicia n Source ECG 12-LEAD 2023-06-10 16:05:51 Josee Plasencia [facility] [id number] 2023-01-30 00:00:00 LUDIVINA [facility] ECG 12-LEAD 2022-11-22 20:51:00 [facility] [id number] 2022-11-05 00:00[facility]00 [facility] [id number] 2022-11-05 00:00:00 [facility] [id number] [facility]22[facility]11[facility]05 [facility] [id number] 2022-11-05 [facility] [id number] 2022-11-02 00:00:00 KYRPO [facility] Encounters Start Date/Time End Date/Time Encounter Type Admission Type Attending Clinicians Care Facility Care Department Encounter ID Source 2023-03-28 14:54:56 Outpatient [facility] [id number] [facility] 2023-01-17 15:36:04 Outpatient [facility] [id number] [facility] 2023-01-16 11:42:11 Outpatient [facility] [id number] [facility] 2022-11-23 14:44:00 Outpatient [facility] [id number] [facility] 2022-11-22 14:10:22 Outpatient [facility] [id number] [facility] 2022-11-21 14:02:07 Outpatient [facility] [id number] [facility] 2022-11-16 13:09:26 Outpatient [facility] [id number] [facility] 2022-11-08 13:33:42 Outpatient [facility] [id number] [facility] 2022-11-07 09:40:24 Outpatient [facility] [id number] [facility] 2022-11-06 09:33:34 Outpatient [facility] [id number] [facility] 2022-11-04 20:47:02 Outpatient [facility] [id number] [facility] 2023-08-01 10:10:03 2023-08-01 23:59:[address] [facility] [id number] MD Sunil grider 2023-08-01 13:37:31 2023-08-01 14:10:02 Outpatient EH BUTCHER MDA MDA [id number] MD Sunil grider 2023-08-01 13:38:00 2023-08-01 13:38:00 Outpatient JOSEE KERN MDA MDA [id number] MD Sunil grider 2023-08-01 11:00:08 2023-08-01 11:00:08 Outpatient JOSEE KERN MDA MDA [id number] MD Sunil grider 2023-08-01 10:31:46 2023-08-01 10:31:46 Outpatient JOSEE KERN MDA MDA [id number] MD Sunil grider 2023-06-10 10:00:00 2023-06-10 10:58:48 Office Visit Erinn Josee [facility] [id number] [facility] 2023-06-06 13:45:00 2023-06-06 13:45:00 Outpatient ARAMIS ANTUNEZ [facility] [id number] [facility] 2023-01-30 05:50:00 2023-01-30 17:37:00 Inpatient Mickey Gee [facility] CARD [id number] [facility] 2022-11-22 14:45:00 2022-11-22 15:17:29 Office Visit Aramis Antunez [facility] [id number] [facility] 2022-10-31 05:46:00 2022-11-06 12:48:00 Inpatient Kristina Retana [facility] MEDI.01 [id number] 60 [facility] 2022-08-02 10:40:58 2022-08-02 23:59:00 Outpatient ESME MDA MDA [id number] MD Sunil grider 2022-08-02 13:29:31 2022-08-02 13:29:31 Outpatient JOSEE KERN MDA MDA [id number] MD Snuil grider 2022-08-02 12:59:37 2022-08-02 12:59:37 Outpatient EL MDA MDA [id number] MD Sunil grider 2022-08-02 11:29:26 2022-08-02 11:29:26 Outpatient EL MDA MDA [id number] MD Sunil grider 2022-08-02 09:12:03 2022-08-02 10:12:28 Outpatient ESME CORBY EH MDA MDA [id number] MD Sunil grider 2021-08-03 11:01:39 2021-08-03 23:59:00 Outpatient JONNY VÁSQUEZ MDA MDA [id number] MD Sunil grider 2021-08-03 13:29:14 2021-08-03 13:29:14 Outpatient JONNY VÁSQUEZ MDA MDA [id number] MD Sunil grider 2021-08-03 12:46:21 2021-08-03 13:24:31 Outpatient ESME EH TAVAREZ MDA MDA [id number] MD Sunil grider 2021-08-03 11:00:35 2021-08-03 11:00:35 Outpatient JONNY VÁSQUEZ MDA MDA [id number] MD Sunil grider 2021-08-03 09:18:41 2021-08-03 09:18:41 Outpatient JONNY VÁSQUEZ MDA MDA [id number] MD Sunil grider 2020-08-03 07:25:55 2020-08-04 06:29:04 Outpatient SHAWNEE LEON MDA MDA [id number] MD Sunil grider 2020-08-02 12:09:49 2020-08-02 23:59:00 Outpatient EL FADIA RIVERA MDA MDA [id number] MD Sunil grider 2020-08-02 09:30:00 2020-08-02 12:08:00 Outpatient EL NICOLE FADIA MDA MDA [id number] MD Sunil grider 2020-08-02 09:59:38 2020-08-02 09:59:38 Outpatient EL NICOLE FADIA MDA MDA [id number] MD Sunil grider 2020-08-02 00:00:00 2020-08-02 00:00:00 Outpatient EL RIVERAFADIA THOMAS MDA MDA [id number] MD Sunil grider Results Test Description Test Time Test Comments Results Result Co mments Source [id number] 10:52:00* Test Item Value Reference Range Interpretation Comme nts ACT-ISTAT (test code = ACTI) 263 SEC 74-137 H Performed by cer tified metal drilling machine operator at [facility] GLUCOSE [id number] 08:49:00* Test Item Value Reference Range Interpretation Comme nts GLUCOSE BEDSIDE (test code = GLUBED) 134 MG/DL 70-110 H Performed by cer tified metal drilling machine operator at [facility] - XR CHEST 1 [id number] 00:00:00 [facility] 1945 Sex: M FAX: Manuel Gaxiola MD [phone] [place]: St: ADM FAX: Raoul Bowens MD [phone] ------ Name: ROBE RITCHIE [facility] : 1945 Age/S: 77/M [address] [place] [address] Unit #: [id number] Loc: [place] [address] Phys: Raoul Dailey MD Acct: [id number] Dis Date: Status: ADM IN PHONE #: [phone] Exam Date: 01/30/2023 1200 FAX #: [phone] Reason: S/P WATCHMAN EXAMS: CPT CODE: [id number] XR CHEST 1 V 44627 PROCEDURE INFORMATION: Exam: XR Chest Exam date and time: 01/30/2023 11:41AM Age: 77 years old Clinical indication: Pre-operative exam; Respiratory screening exam; Additional info: S/P watchman TECHNIQUE: Imaging protocol: Radiologic exam of the chest. Views: 1 view. COMPARISON: DX XR CHEST 2 V 01/28/2023 12:16 PM FINDINGS: Tubes, catheters and devices: Pacemaker. Lungs:Hypodensity lungs. No consolidation. No interstitial edema. Pleural spaces: No pleural effusion. Nopneumothorax. Heart/Mediastinum: Mild cardiomegaly. Bones/joints: Midline sternotomy wires. IMPRESSION: No acute cardiopulmonary process identified. at 1212 Reported and signed by: Ronald Escalante M.D. CC: Manuel Gandhi MD;Raoul Dailey MD Technologist: RT Alayna(R) Trnscrd Date/Time/By: 01/30/2023 (1212) : By: [email or web address] Orig Print D/T: S: 01/30/2023 (1212) PAGE 1 Signed ReportBASIC METABOLIC [id number] 12:42:00* Test Item Value Reference Range Interpretation Comme nts SODIUM (test code = NA) 140 mEq/L 134-147 N POTASSIUM (test code = K) 4.2 mEq/L 3.4-5.0 N CHLORIDE (test code = CL) 106 mEq/L 100-108 N CARBON DIOXIDE (test code = CO2) 27 mEq/l 21-33 N ANION GAP (test code = GAP) 11 0-20 N GLUCOSE (test code = GLU) 106 mg/dL 70-110 N BLOOD UREA NITROGEN (test code = BUN) 37 mg/dL 7-18 H GLOMERULAR FILTRATION RATE (test code = GFR) 35.4 70-80 L The Glomerular Filtration Rate is a calculated parameterbased on serum Creatinine, patient age and sex. GFR valuesless than 60 mL/min/1.73 square meters are indicative ofChronic Kidney Disease. Values less than 15 mL/min/1.73square meters indicate Kidney failure. The calculation forGFR is based on the CKD-EPI (2020) calculation. This formulais race indifferent and is the recommended formula for GFRby the National Kidney Foundation for Adults.The GFR will not calculate if the sex is unknown or if thepatient's age is <18 years. CREATININE (test code = CREAT) 1.9 mg/dL 0.6-1.3 H CALCIUM (test code = CA) 9.2 mg/dL 8.0-10.5 N [id number] 12:42:00* Test Item Value Reference Range Interpretation Comme nts PREALBUMIN (test code = PREALB) 22.9 mg/dL 16.0-40.0 N PROTHROMBIN [id number] 12:24:00* Test Item Value Reference Range Interpretation Comme nts PROTHROMBIN TIME PATIENT (test code = PTP) 13.2 SECONDS 9.3-12.9 H INTERNATIONAL NORMAL RATIO (test code = INR) 1.2 0.8-1.2 N TARGET INR BY INDICATION Indication INR1. Prophylaxis of venous thrombosis 2.0 - 3.0 (orthopedic surgery), Prophylaxis of venous thrombosis (other than high-risk surgery), Treatment of Deep Vein Thrombosis/Pulmonary Embolism, Prevention of systemic embolism - Tissue heart valves, Acute Myocardial Infarction (to prevent systemic embolism), Valvular heart disease, Atrial Fibrillation, Bileaflet mechanical valve in aortic position.2. Mechanical prosthetic valves (high risk), 2.5 - 3.5 Presence of Lupus Anticoagulant or Antiphospholipid Antibodies, Prevention of systemic embolism - Acute Myocardial Infarction (to prevent recurrent infarct). CBC W/AUTO [id number] 12:20:00* Test Item Value Reference Range Interpretation Comme nts WHITE BLOOD CELL (test code = WBC) 6.6 x10 3/uL 4.5-11.0 N RED BLOOD CELL (test code = RBC) 4.66 x10 6/uL 4.00-5.60 N HEMOGLOBIN (test code = HGB) 11.9 g/dL 12.5-16.9 L HEMATOCRIT (test code = HCT) 38.4 % 37.5-50.7 N MEAN CELL VOLUME (test code = MCV) 82.4 fL 81.0-99.0 N MEAN CELL HGB (test code = MCH) 25.5 pg 27.0-33.0 L MEAN CELL HGB CONCETRATION (test code = MCHC) 31.0 g/dL 33.0-37.0 L RED CELL DISTRIBUTION WIDTH CV (test code = RDW) 16.6 % 11.5-14.5 H RED CELL DISTRIBUTION WIDTH SD (test code = RDW-SD) 50.3 fL 37.0-54.0 N PLATELET COUNT (test code = PLT) 176 x10 3/uL 150-400 N MEAN PLATELET VOLUME (test c ode = MPV) 9.6 fL 7.0-9.0 H NEUTROPHIL % (test code = NT%) 63.2 % 56.0-77.0 N IMMATURE GRANULOCYTE % (test code = IG%) 0.3 % 0.0-2.0 N LYMPHOCYTE % (test code = LY%) 21.3 % 14.0-32.0 N MONOCYTE % (test code = MO%) 8.2 % 4.8-9.0 N EOSINOPHIL % (test code = EO%) 6.2 % 0.3-3.7 H BASOPHIL % (test code = BA%) 0.8 % 0.0-2.0 N NUCLEATED RBC % (test code = NRBC%) 0.0 % 0-0 N NEUTROPHIL # (test code = NT#) 4.18 x10 3/uL 2.0-7.6 N IMMATURE GRANULOCYTE # (test code = IG#) 0.02 x10 3/uL 0.00-0.03 N LYMPHOCYTE # (test code = LY#) 1.41 x10 3/uL 1.0-3.8 N MONOCYTE # (test code = MO#) 0.54 x10 3/uL 0.1-0.8 N EOSINOPHIL # (test code = EO#) 0.41 x10 3/uL 0.0-0.2 H BASOPHIL # (test code = BA#) 0.05 x10 3/uL 0.0-0.2 N NUCLEATED RBC # (test code = NRBC#) 0.00 x10 3/uL 0.0-0.1 N MANUAL DIFF REQUIRED (test c ode = MDIFF) NO - XR CHEST 2 [id number] 00:00:00 [facility] : 1945 Sex: M FAX: Manuel Gaxiola MD [phone] [place]: St: PRE FAX: Raoul Bowens MD [phone] ------ Name: ROBE RITCHIE [facility] [employer] : 1945 Age/S: 77/M [address] [place] [address] Unit #: [id number] Loc: [place] [address] Phys: Raoul Dailey MD Acct: [id number] Dis Date: Status: PRE IN PHONE #: Exam Date: 01/28/2023 1311 FAX #: [phone] Reason: PRE OP EXAMS: CPT CODE: [id number] CHEST 2 V 08406 PROCEDURE INFORMATION: Exam: XR Chest Exam date and time: 01/28/2023 12:16 PM Age: 77 years old Clinical indication: Pre- operative exam; Cardiovascular screening and respiratory screening exam; Additional info: Pre op TECHNIQUE: Imaging protocol: Radiologic exam of the chest. Views: 2 views. PA and Lateral COMPARISON: CR XR CHEST 1V 11/06/2022 8:30 AM FINDINGS: Tubes, Catheter,Devices: Pacemaker from the left is noted. Lungs: Appear free of acute disease. Pleural spaces: No pleural effusion. No pneumothorax. Heart/Mediastinum: Mild cardiomegaly is unchanged.Calcifications and tortuosity of the aorta is noted.. Bones/joints: Median sternotomy wires are identified. IMPRESSION: No acute cardiopulmonary findings. at 1349 Reported and signed by: Sherry Marroquin M.D. CC: Manuel Gandhi MD; Raoul Dailey MD Technologist: RT Carlitos(R) Trngakayleen Date/Time/By: 01/28/2023 (1348) : By: Altagracia Orig Print D/T: S: 01/28/2023 (133) PAGE 1 Signed ReportGLUCOSE [id number] 11:50:00* Test Item Value Reference Range Interpretation Comme [facility] GLUCOSE BEDSIDE (test code = GLUBED) 171 MG/DL 70-110 H Performed by jerome ohara metal drilling machine operator at [facility] CYTOLOGY NON [id number] 11:05:00* Test Item Value Reference Range Interpretation Comme nts CYTOLOGY NON SUPERVISOR INTELLIGENCE ANALYST (test code = CR) R UN DATE: 11/06/22 [employer] - LAB PAGE 1 RUN TIME: 1106 Specimen Inquiry RUN USER: INTERFACE P ATIENT: ROBE RITCHIE JR LOC: [facility] U #: [id number] AGE/SX: 77/M ROOM: [facility] RE10/31/22REG DR: Kristina Hodge MD : [birth year] BED: 1 DIS: STATUS: ADM IN TLOC: SPEC #: [id number] RECD: 11/05/22 STATUS: SHIVA VILLA #: [id number] JHON: 11/02/22- SUBM DR: Kristina Hodge MD ENTERED: 11/05/22 SP TYPE: CYTO NGYN OTHR DR: No Primary or Family Physician Sherly Gomes MD, Molham MD Barr, David T MD Dahdel, Maher MD Lakhani, Asif MD Raslan,Aramis Narayanan MD, MDORDERED: 28502, 60324, ANATOMIC SPEC COPIES TO: No Primary or Family Physician Sherly Gomes MD [address] [place] [address] Mickey Briggs MD [address] [place] [address] Kristina Hodge MD [address] [place] [address] Manuel Gandhi MD [address] [place] [address] Taylor Lowery MD [address] [place] [address] [address] [place] [address] Carlos Alberto Barfield MD [address] [place] [address] CONTINUED ON NEXT PAGE R UN DATE: 11/06/22 [employer] - LAB PAGE 2 RUN TIME: 1106 Specimen Inquiry RUN USER: INTERFACE S PEC #: [id number] PATIENT: ROBE RITCHIE JR #[id number] (Continued) COPIES TO: (Continued) Raoul Dailey MD [address] [facility] [address] [place], [place] [id number] [place] [address], [address] [place], [place] [address] PROCEDURES: 94482 (11/05/22-1420) 28028 (11/05/22) TISSUES: A. PLEURAL FLUID - RIGHT CLINICAL HISTORY SAME FINAL DIAGNOSIS Pleural effusion, right, cellblock and cytospin: No cells diagnostic of malignancy. GROSS DESCRIPTION Received right pleural effusion is 45 mL of yellow fluid without fixative for cytologicevaluation, cellblock and cytospin smears are prepared. Technical component performed at [facility],[address] [place] [address], [place] [address] Unless gross only, the diagnosis is based upon microscopic examination.Immunohistochemistr y: This test was developed and its performance characteristicsdetermined by this laboratory. It has not been approved nor does it need approvalby the US FDA. Appropriate positive and negative controls are reviewed and judgedto be acceptable. This laboratory is certified under the Clinical Laboratory ImprovementAmendments (CLIA-88) as qualified to perform high complexity clinical laboratory testing. MICROSCOPIC DESCRIPTION Cellblock and cytospin smears of the right pleural effusion reveal numerous mesothelialcells with background mild mixed inflammation. No cells diagnostic of malignancy areidentified. There is an accepted false positive and negative rate in all cytologicdiagnostic procedures, therefore, tissue biopsy confirmation is recommended if clinicallyindicated. CONTINUED ON NEXT PAGE Eliseo UN DATE: 11/06/22 [employer] - LAB PAGE 3 RUN TIME: 1106 Specimen Inquiry RUN USER: INTERFACE S PEC #: [id number] PATIENT: ROBE RITCHIE #[id number] (Continued) CLINICAL INFORMATION RIGHT PLEURAL EFFUSION ------- Signed _ Manuel Ybarra 11/06/22 1105 END OF REPORT BASIC METABOLIC [id number] 08:38:00* Test Item Value Reference Range Interpretation Comme nts SODIUM (test code = NA) 138 mEq/L 134-147 N POTASSIUM (test code = K) 5.0 mEq/L 3.4-5.0 N CHLORIDE (test code = CL) 107 mEq/L 100-108 N CARBON DIOXIDE (test code = CO2) 26 mEq/l 21-33 N ANION GAP (test code = GAP) 10 0-20 N GLUCOSE (test code = GLU) 115 mg/dL 70-110 H BLOOD UREA NITROGEN (test code = BUN) 58 mg/dL 7-18 H GLOMERULAR FILTRATION RATE (test code = GFR) 25.5 70-80 L The Glomerular Filtration Rate is a calculated parameterbased on serum Creatinine, patient age and sex. GFR valuesless than 60 mL/min/1.73 square meters are indicative ofChronic Kidney Disease. Values less than 15 mL/min/1.73square meters indicate Kidney failure. The calculation forGFR is based on the CKD-EPI (2020) calculation. This formulais race indifferent and is the recommended formula for GFRby the National Kidney Foundation for Adults.The GFR will not calculate if the sex is unknown or if thepatient's age is <18 years. CREATININE (test code = CREAT) 2.5 mg/dL 0.6-1.3 H CALCIUM (test code = CA) 9.2 mg/dL 8.0-10.5 N [id number] 08:38:00* Test Item Value Reference Range Interpretation Comme nts PHOSPHOROUS (test code = PHOS) 4.2 MG/DL 2.5-4.9 N [id number] 08:38:00* Test Item Value Reference Range Interpretation Comme nts MAGNESIUM (test code = MAG) 2.03 mg/dL 1.80-2.40 N CBC W/AUTO [id number] 08:26:00* Test Item Value Reference Range Interpretation Comme nts WHITE BLOOD CELL (test code = WBC) 6.1 x10 3/uL 4.5-11.0 N RED BLOOD CELL (test code = RBC) 3.86 x10 6/uL 4.00-5.60 L HEMOGLOBIN (test code = HGB) 9.6 g/dL 12.5-16.9 L HEMATOCRIT (test code = HCT) 31.2 % 37.5-50.7 L MEAN CELL VOLUME (test code = MCV) 80.8 fL 81.0-99.0 L MEAN CELL HGB (test code = MCH) 24.9 pg 27.0-33.0 L MEAN CELL HGB CONCETRATION (test code = MCHC) 30.8 g/dL 33.0-37.0 L RED CELL DISTRIBUTION WIDTH CV (test code = RDW) 16.3 % 11.5-14.5 H RED CELL DISTRIBUTION WIDTH SD (test code = RDW-SD) 47.7 fL 37.0-54.0 N PLATELET COUNT (test code = PLT) 166 x10 3/uL 150-400 N MEAN PLATELET VOLUME (test c ode = MPV) 10.0 fL 7.0-9.0 H NEUTROPHIL % (test code = NT%) 71.6 % 56.0-77.0 N IMMATURE GRANULOCYTE % (test code = IG%) 0.5 % 0.0-2.0 N LYMPHOCYTE % (test code = LY%) 13.3 % 14.0-32.0 L MONOCYTE % (test code = MO%) 8.7 % 4.8-9.0 N EOSINOPHIL % (test code = EO%) 5.1 % 0.3-3.7 H BASOPHIL % (test code = BA%) 0.8 % 0.0-2.0 N NUCLEATED RBC % (test code = NRBC%) 0.0 % 0-0 N NEUTROPHIL # (test code = NT#) 4.35 x10 3/uL 2.0-7.6 N IMMATURE GRANULOCYTE # (test code = IG#) 0.03 x10 3/uL 0.00-0.03 N LYMPHOCYTE # (test code = LY#) 0.81 x10 3/uL 1.0-3.8 L MONOCYTE # (test code = MO#) 0.53 x10 3/uL 0.1-0.8 N EOSINOPHIL # (test code = EO#) 0.31 x10 3/uL 0.0-0.2 H BASOPHIL # (test code = BA#) 0.05 x10 3/uL 0.0-0.2 N NUCLEATED RBC # (test code = NRBC#) 0.00 x10 3/uL 0.0-0.1 N MANUAL DIFF REQUIRED (test c ode = MDIFF) NO GLUCOSE [id number] 05:51:00* Test Item Value Reference Range Interpretation Comme nts GLUCOSE BEDSIDE (test code = GLUBED) 101 MG/DL 70-110 N Performed by cer lev metal drilling machine operator at [facility] - XR CHEST 1 [id number] 00:00:00 [facility] 1945 Sex: M FAX: Kristina Adrian MD [phone] [place]: St: ADM FAX: Manuel Gaxiola MD [phone] FAX: Raoul Bowens MD [phone] FAX: Wade Carey [phone] Name: ROBE RITCHIE [facility] [employer] :1945 Age/S: 77/M [address] [place] [address] Unit #: [id number] Loc: G.4421 [place] [address] Phys: Wade Carey Acct: [id number] Dis Date: Status: ADM IN PHONE #: [phone] Exam Date: 11/06/2022 0950 FAX #: [phone] Reason: Post PM/ICD EXAMS: CPT CODE: [id number] XR CHEST 1 V 92651 PROCEDURE INFORMATION: Exam: XR Chest Exam date and time: 11/06/2022 8:30 AM Age: 77 years old Clinical indication: Other: Post pm/icd TECHNIQUE: Imaging protocol: Radiologic exam of the chest. Views: 1 view. COMPARISON: CR XR CHEST 1V 11/05/2022 2:06 PM FINDINGS: Tubes, catheters and devices: Stable surgical implants. Lungs: Interval slight worsening of the right mid/lower lung pulmonary infiltrate. No significant left pulmonary infiltrate. Pleural spaces: Small right pleural effusion, stable. No pneumothorax. No left pleural effusion. Heart/Mediastinum: Stable cardiomegaly. Bones/joints:Median sternotomy wires. IMPRESSION: 1. Stable small right pleural effusion. Interval slight worsening of the right mid/lower lung pulmonary infiltrate. 2. No significant left pulmonary infiltrate. at 1013 Reported and signed by: Alessandra Franks M.D. CC: Kristina Hodge MD; Manuel Gandhi MD; Raoul Dailey MD; Wade Keating Technologist: RT Mary(Eliseo) Trnscrd Date/Time/By: 11/06/2022 (1013) : By: [email or web address] Signed Report GLUCOSE [id number] 19:11:00* Test Item Value Reference Range Interpretation Comme nts GLUCOSE BEDSIDE (test code = GLUBED) 121 MG/DL 70-110 H Performed by cer tified metal drilling machine operator at [facility] GLUCOSE [id number] 16:47:00* Test Item Value Reference Range Interpretation Comme nts GLUCOSE BEDSIDE (test code = GLUBED) 122 MG/DL 70-110 H Performed by cer tified metal drilling machine operator at [facility] COVID 19 Asymptomatic IH [id number] 08:22:00* Test Item Value Reference Range Interpretation Comme nts COVID 19 Asymptomatic IH AG (test code = COVNONPUIAG) Negative Negative A negative resul t is presumptive and should be confirmedwith an FDA authorized molecular assay, if necessary forpatient management.A positive result does not rule out co-infections withother pathogens.This test detects both viable (live) and non-viable,SARS-CoV, and SARS-CoV-2. Test performance depends on theamount of virus (antigen) in the sample.This test has not been FDA cleared or approved; the test hasbeen authorized by FDA under an Emergency Use Authorization(EUA) for use by laboratories certified under the CLIA thatmeet the requirements to perform moderate, high or waivedcomplexity tests. BASIC METABOLIC [id number] 08:13:00* Test Item Value Reference Range Interpretation Comme nts SODIUM (test code = NA) 137 mEq/L 134-147 N POTASSIUM (test code = K) 5.0 mEq/L 3.4-5.0 N CHLORIDE (test code = CL) 104 mEq/L 100-108 N CARBON DIOXIDE (test code = CO2) 23 mEq/l 21-33 N ANION GAP (test code = GAP) 15 0-20 N GLUCOSE (test code = GLU) 120 mg/dL 70-110 H BLOOD UREA NITROGEN (test code = BUN) 77 mg/dL 7-18 H GLOMERULAR FILTRATION RATE (test code = GFR) 20.5 70-80 L The Glomerular Filtration Rate is a calculated parameterbased on serum Creatinine, patient age and sex. GFR valuesless than 60 mL/min/1.73 square meters are indicative ofChronic Kidney Disease. Values less than 15 mL/min/1.73square meters indicate Kidney failure. The calculation forGFR is based on the CKD-EPI (2020) calculation. This formulais race indifferent and is the recommended formula for GFRby the National Kidney Foundation for Adults.The GFR will not calculate if the sex is unknown or if thepatient's age is <18 years. CREATININE (test code = CREAT) 3.0 mg/dL 0.6-1.3 H CALCIUM (test code = CA) 9.5 mg/dL 8.0-10.5 N [id number] 08:13:00* Test Item Value Reference Range Interpretation Comme nts PHOSPHOROUS (test code = PHOS) 5.1 MG/DL 2.5-4.9 H [id number] 08:13:00* Test Item Value Reference Range Interpretation Comme nts MAGNESIUM (test code = MAG) 2.11 mg/dL 1.80-2.40 N CBC W/AUTO [id number] 07:38:00* Test Item Value Reference Range Interpretation Comme nts WHITE BLOOD CELL (test code = WBC) 9.4 x10 3/uL 4.5-11.0 RED BLOOD CELL (test code = RBC) 3.98 x10 6/uL 4.00-5.60 L HEMOGLOBIN (test code = HGB) 10.0 g/dL 12.5-16.9 L HEMATOCRIT (test code = HCT) 32.1 % 37.5-50.7 L MEAN CELL VOLUME (test code = MCV) 80.7 fL 81.0-99.0 L MEAN CELL HGB (test code = MCH) 25.1 pg 27.0-33.0 L MEAN CELL HGB CONCETRATION (test code = MCHC) 31.2 g/dL 33.0-37.0 L RED CELL DISTRIBUTION WIDTH CV (test code = RDW) 16.2 % 11.5-14.5 H RED CELL DISTRIBUTION WIDTH SD (test code = RDW-SD) 46.7 fL 37.0-54.0 N PLATELET COUNT (test code = PLT) 197 x10 3/uL 150-400 N MEAN PLATELET VOLUME (test c ode = MPV) 11.6 fL 7.0-9.0 H NEUTROPHIL % (test code = NT%) 75.8 % 56.0-77.0 N IMMATURE GRANULOCYTE % (test code = IG%) 0.3 % 0.0-2.0 N LYMPHOCYTE % (test code = LY%) 12.0 % 14.0-32.0 L MONOCYTE % (test code = MO%) 7.4 % 4.8-9.0 N EOSINOPHIL % (test code = EO%) 3.9 % 0.3-3.7 H BASOPHIL % (test code = BA%) 0.6 % 0.0-2.0 N NUCLEATED RBC % (test code = NRBC%) 0.0 % 0-0 N NEUTROPHIL # (test code = NT#) 7.12 x10 3/uL 2.0-7.6 N IMMATURE GRANULOCYTE # (test code = IG#) 0.03 x10 3/uL 0.00-0.03 N LYMPHOCYTE # (test code = LY#) 1.13 x10 3/uL 1.0-3.8 N MONOCYTE # (test code = MO#) 0.70 x10 3/uL 0.1-0.8 N EOSINOPHIL # (test code = EO#) 0.37 x10 3/uL 0.0-0.2 H BASOPHIL # (test code = BA#) 0.06 x10 3/uL 0.0-0.2 N NUCLEATED RBC # (test code = NRBC#) 0.00 x10 3/uL 0.0-0.1 N MANUAL DIFF REQUIRED (test c ode = MDIFF) NO THROMBOPLASTIN TIME [id number] 07:11:00* Test Item Value Reference Range Interpretation Comme [facility] THROMBOPLASTIN TIME PARTIAL (test code = PTT) 37.5 Seconds 25.0-39.5 N Therapeutic Rang e: 50.4 - 88.3 Seconds Effective 02/03/2019 GLUCOSE [id number] 06:09:00* Test Item Value Reference Range Interpretation Comme [facility] GLUCOSE BEDSIDE (test code = GLUBED) 118 MG/DL 70-110 H Performed by jerome [employer] machine operator at [facility] - XR CHEST 1 [id number] 00:00:00 [facility] : 1945 Sex: M FAX: Kristina Adrian MD [phone] [place]: St: ADM FAX: Manuel Gaxiola MD [phone] FAX: Raoul Bowens MD [phone] FAX: Wade Carey [phone] Name: ROBE RITCHIE [facility] [employer] :1945 Age/S: 77/M 79 [place] [address] Unit #: [id number] Loc: G.4421 [place] [address] Phys: Wade Carey EMERGENCY MEDICAL TECHNICIAN BASIC Acct: [id number] Dis Date: Status: ADM IN PHONE #: [phone] Exam Date: 11/05/2022 1408 FAX #: [phone] Reason: Post PM/ICD EXAMS: CPT CODE: [id number] XR CHEST 1 V 56078 PROCEDURE INFORMATION: Exam: XR Chest Exam date and time: 11/05/2022 2:06 PM Age: 77 years old Clinical indication: Other: Post pm/icd TECHNIQUE: Imaging protocol: Radiologic exam of the chest. Views: 1 view. COMPARISON: CR XR CHEST 1V 11/02/2022 2:22 PM FINDINGS: Left chest cardiac device with leads projecting over the expected regions of the right atrium and ventricle. Lungs: Low lung volumes are present bilaterally. Bilateral multifocal airspace opacities. Pleural spaces: Small right pleural effusion. No pneumothorax. Heart/Mediastinum: Heart size is within normal limits. Atherosclerotic calcifications. Bones/joints: No displaced fracture. Median sternotomy wires. IMPRESSION: Bilateral multifocal airspace opacities may represent developing pneumonia. Small right pleural effusion. at 1533 Reported and signed by: Brady Santizo M.D. CC: Kristina Hodge MD; Manuel Gandhi MD; Raoul Dailey MD; Wade Carey Technologist: RT Mary(R) Trnscrd Date/Time/By: 11/05/2022 (153) : By: [id number] Orig Print D/T: S: 11/05/2022 (1532) PAGE 1 Signed ReportGLUCOSE [id number] 20:06:00* Test Item Value Reference Range Interpretation Comme nts GLUCOSE BEDSIDE (test code = GLUBED) 126 MG/DL 70-110 H Performed by [facility] tified metal drilling machine operator at [facility] GLUCOSE [id number] 17:05:00* Test Item Value Reference Range Interpretation Comme nts GLUCOSE BEDSIDE (test code = GLUBED) 157 MG/DL 70-110 H Performed by [facility] [employer] metal drilling machine operator at [facility] GLUCOSE [id number] 14:03:00* Test Item Value Reference Range Interpretation Comme nts GLUCOSE BEDSIDE (test code = GLUBED) 131 MG/DL 70-110 H Performed by [facility] [employer] metal drilling machine operator at [facility] GLUCOSE [id number] 08:26:00* Test Item Value Reference Range Interpretation Comme nts GLUCOSE BEDSIDE (test code = GLUBED) 106 MG/DL 70-110 N Performed by [facility] [employer] metal drilling machine operator at [facility] BASIC METABOLIC [id number] 07:56:00* Test Item Value Reference Range Interpretation Comme nts SODIUM (test code = NA) 136 mEq/L 134-147 N POTASSIUM (test code = K) 5.1 mEq/L 3.4-5.0 H CHLORIDE (test code = CL) 104 mEq/L 100-108 N CARBON DIOXIDE (test code = CO2) 21 mEq/l 21-33 N ANION GAP (test code = GAP) 16 0-20 N GLUCOSE (test code = GLU) 138 mg/dL 70-110 H BLOOD UREA NITROGEN (test code = BUN) 63 mg/dL 7-18 H GLOMERULAR FILTRATION RATE (test code = GFR) 19.7 70-80 L The Glomerular Filtration Rate is a calculated parameterbased on serum Creatinine, patient age and sex. GFR valuesless than 60 mL/min/1.73 square meters are indicative ofChronic Kidney Disease. Values less than 15 mL/min/1.73square meters indicate Kidney failure. The calculation forGFR is based on the CKD-EPI (2020) calculation. This formulais race indifferent and is the recommended formula for GFRby the National Kidney Foundation for Adults.The GFR will not calculate if the sex is unknown or if thepatient's age is <18 years. CREATININE (test code = CREAT) 3.1 mg/dL 0.6-1.3 H CALCIUM (test code = CA) 8.7 mg/dL 8.0-10.5 N [id number] 07:56:00* Test Item Value Reference Range Interpretation Comme nts PHOSPHOROUS (test code = PHOS) 5.5 MG/DL 2.5-4.9 H [id number] 07:56:00* Test Item Value Reference Range Interpretation Comme nts MAGNESIUM (test code = MAG) 2.07 mg/dL 1.80-2.40 N CBC W/AUTO [id number] 07:25:00* Test Item Value Reference Range Interpretation Comme nts WHITE BLOOD CELL (test code = WBC) 4.7 x10 3/uL 4.5-11.0 N RED BLOOD CELL (test code = RBC) 3.75 x10 6/uL 4.00-5.60 L HEMOGLOBIN (test code = HGB) 9.3 g/dL 12.5-16.9 L HEMATOCRIT (test code = HCT) 30.9 % 37.5-50.7 L MEAN CELL VOLUME (test code = MCV) 82.4 fL 81.0-99.0 N MEAN CELL HGB (test code = MCH) 24.8 pg 27.0-33.0 L MEAN CELL HGB CONCETRATION (test code = MCHC) 30.1 g/dL 33.0-37.0 L RED CELL DISTRIBUTION WIDTH CV (test code = RDW) 16.1 % 11.5-14.5 H RED CELL DISTRIBUTION WIDTH SD (test code = RDW-SD) 48.6 fL 37.0-54.0 N PLATELET COUNT (test code = PLT) 174 x10 3/uL 150-400 N MEAN PLATELET VOLUME (test c ode = MPV) 11.6 fL 7.0-9.0 H NEUTROPHIL % (test code = NT%) 65.4 % 56.0-77.0 N IMMATURE GRANULOCYTE % (test code = IG%) 0.4 % 0.0-2.0 N LYMPHOCYTE % (test code = LY%) 16.3 % 14.0-32.0 N MONOCYTE % (test code = MO%) 8.6 % 4.8-9.0 N EOSINOPHIL % (test code = EO%) 8.2 % 0.3-3.7 H BASOPHIL % (test code = BA%) 1.1 % 0.0-2.0 N NUCLEATED RBC % (test code = NRBC%) 0.0 % 0-0 N NEUTROPHIL # (test code = NT#) 3.05 x10 3/uL 2.0-7.6 N IMMATURE GRANULOCYTE # (test code = IG#) 0.02 x10 3/uL 0.00-0.03 N LYMPHOCYTE # (test code = LY#) 0.76 x10 3/uL 1.0-3.8 L MONOCYTE # (test code = MO#) 0.40 x10 3/uL 0.1-0.8 N EOSINOPHIL # (test code = EO#) 0.38 x10 3/uL 0.0-0.2 H BASOPHIL # (test code = BA#) 0.05 x10 3/uL 0.0-0.2 N NUCLEATED RBC # (test code = NRBC#) 0.00 x10 3/uL 0.0-0.1 N MANUAL DIFF REQUIRED (test c ode = MDIFF) NO GLUCOSE [id number] 17:07:00* Test Item Value Reference Range Interpretation Comme nts GLUCOSE BEDSIDE (test code = GLUBED) 129 MG/DL 70-110 H Performed by cer tified metal drilling machine operator at [facility] GLUCOSE [id number] 13:01:00* Test Item Value Reference Range Interpretation Comme nts GLUCOSE BEDSIDE (test code = GLUBED) 156 MG/DL 70-110 H Performed by cer lev metal drilling machine operator at [facility] BASIC METABOLIC [id number] 08:11:00* Test Item Value Reference Range Interpretation Comme nts SODIUM (test code = NA) 137 mEq/L 134-147 N POTASSIUM (test code = K) 5.1 mEq/L 3.4-5.0 H CHLORIDE (test code = CL) 103 mEq/L 100-108 N CARBON DIOXIDE (test code = CO2) 24 mEq/l 21-33 N ANION GAP (test code = GAP) 15 0-20 N GLUCOSE (test code = GLU) 149 mg/dL 70-110 H BLOOD UREA NITROGEN (test code = BUN) 70 mg/dL 7-18 H GLOMERULAR FILTRATION RATE (test code = GFR) 17.6 70-80 L The Glomerular Filtration Rate is a calculated parameterbased on serum Creatinine, patient age and sex. GFR valuesless than 60 mL/min/1.73 square meters are indicative ofChronic Kidney Disease. Values less than 15 mL/min/1.73square meters indicate Kidney failure. The calculation forGFR is based on the CKD-EPI (2020) calculation. This formulais race indifferent and is the recommended formula for GFRby the National Kidney Foundation for Adults.The GFR will not calculate if the sex is unknown or if thepatient's age is <18 years. CREATININE (test code = CREAT) 3.4 mg/dL 0.6-1.3 H CALCIUM (test code = CA) 9.1 mg/dL 8.0-10.5 N [id number] 08:11:00* Test Item Value Reference Range Interpretation Comme nts PHOSPHOROUS (test code = PHOS) 6.1 MG/DL 2.5-4.9 H [id number] 08:11:00* Test Item Value Reference Range Interpretation Comme nts MAGNESIUM (test code = MAG) 2.10 mg/dL 1.80-2.40 N CBC W/AUTO [id number] 07:17:00* Test Item Value Reference Range Interpretation Comme nts WHITE BLOOD CELL (test code = WBC) 4.5 x10 3/uL 4.5-11.0 N RED BLOOD CELL (test code = RBC) 3.68 x10 6/uL 4.00-5.60 L HEMOGLOBIN (test code = HGB) 9.1 g/dL 12.5-16.9 L HEMATOCRIT (test code = HCT) 30.0 % 37.5-50.7 L MEAN CELL VOLUME (test code = MCV) 81.5 fL 81.0-99.0 N MEAN CELL HGB (test code = MCH) 24.7 pg 27.0-33.0 L MEAN CELL HGB CONCETRATION (test code = MCHC) 30.3 g/dL 33.0-37.0 L RED CELL DISTRIBUTION WIDTH CV (test code = RDW) 15.9 % 11.5-14.5 H RED CELL DISTRIBUTION WIDTH SD (test code = RDW-SD) 48.3 fL 37.0-54.0 N PLATELET COUNT (test code = PLT) 147 x10 3/uL 150-400 L MEAN PLATELET VOLUME (test c ode = MPV) 10.5 fL 7.0-9.0 H NEUTROPHIL % (test code = NT%) 62.6 % 56.0-77.0 N IMMATURE GRANULOCYTE % (test code = IG%) 0.2 % 0.0-2.0 N LYMPHOCYTE % (test code = LY%) 19.8 % 14.0-32.0 N MONOCYTE % (test code = MO%) 10.4 % 4.8-9.0 H EOSINOPHIL % (test code = EO%) 5.9 % 0.3-3.7 H BASOPHIL % (test code = BA%) 1.1 % 0.0-2.0 N NUCLEATED RBC % (test code = NRBC%) 0.0 % 0-0 N NEUTROPHIL # (test code = NT#) 2.84 x10 3/uL 2.0-7.6 N IMMATURE GRANULOCYTE # (test code = IG#) 0.01 x10 3/uL 0.00-0.03 N LYMPHOCYTE # (test code = LY#) 0.90 x10 3/uL 1.0-3.8 L MONOCYTE # (test code = MO#) 0.47 x10 3/uL 0.1-0.8 N EOSINOPHIL # (test code = EO#) 0.27 x10 3/uL 0.0-0.2 H BASOPHIL # (test code = BA#) 0.05 x10 3/uL 0.0-0.2 N NUCLEATED RBC # (test code = NRBC#) 0.00 x10 3/uL 0.0-0.1 N MANUAL DIFF REQUIRED (test c ode = MDIFF) NO GLUCOSE [id number] 05:45:00* Test Item Value Reference Range Interpretation Comme nts GLUCOSE BEDSIDE (test code = GLUBED) 150 MG/DL 70-110 H Performed by cer tified metal drilling machine operator at [facility] GLUCOSE [id number] 21:24:00* Test Item Value Reference Range Interpretation Comme nts GLUCOSE BEDSIDE (test code = GLUBED) 158 MG/DL 70-110 H Performed by cer tified metal drilling machine operator at [facility] GLUCOSE [id number] 18:20:00* Test Item Value Reference Range Interpretation Comme nts GLUCOSE BEDSIDE (test code = GLUBED) 179 MG/DL 70-110 H Performed by cer tified metal drilling machine operator at [facility] PLERUAL FLD [id number] 17:00:00* Test Item Value Reference Range Interpretation Comme nts PLERUAL FLD GLUCOSE (test code = GLUPL) 142 MG/DL See_Comment The Reference Ra nge and Method Performance specificationshave not been established for this fluid. The test resultshould be correlated into the clinical context forinterpretation. [Automated message] The system which generated this result transmitted reference range: (). The reference range was not used to interpret this result as normal/abnormal. PLEURUAL FLD [id number] 17:00:00* Test Item Value Reference Range Interpretation Comme nts PLEURUAL FLD GLUCOSE (test c ode = GLUPL) 142 MG/DL PLEURAL FLD TOTAL [id number] 16:59:00* Test Item Value Reference Range Interpretation Comme nts PLEURAL FLD TOTAL PROTEIN (test code = PROTPL) 2.8 GM/DL See_Comment The Reference Ra nge and Method Performance specificationshave not been established for this fluid. The test resultshould be correlated into the clinical context forinterpretation. [Automated message] The system which generated this result transmitted reference range: (). The reference range was not used to interpret this result as normal/abnormal. PLEURAL FLD [id number] 16:59:00* Test Item Value Reference Range Interpretation Comme nts PLEURAL FLD LDH (test code = LDHPL) 102 UNITS/L See_Comment Result is in INT ERNATIONAL UNITS/LITERThe Reference Range and Method Performance specificationshave not been established for this fluid. The test resultshould be correlated into the clinical context forinterpretation. [Automated message] The system which generated this result transmitted reference range: (). The reference range was not used to interpret this result as normal/abnormal. PLEURAL FLD TOTAL [id number] 16:59:00* Test Item Value Reference Range Interpretation Comme nts PLEURAL FLD TOTAL PROTEIN (t est code = PROTPL) 2.8 GM/DL PLEURAL FLD [id number] 16:59:00* Test Item Value Reference Range Interpretation Comme nts PLEURAL FLD LDH (test code = LDHPL) 102 UNITS/L PLEURAL FLD CELL [id number] 16:13:00* Test Item Value Reference Range Interpretation Comme nts PLEURAL FLD COLOR (test code = COLPL) YELLOW PLEURAL FLD APPEARANCE (test code = APPPL) CLEAR PLEURAL FLD WBC (test code = WBCPL) 221 cells/uL 0-500 N PLEURAL FLD RBC (test code = RBCPL) < 2000 Cells/uL 0-0 H PLEURAL FLD POLY (test code = POLYPL) 38 % PLEURAL FLD LYMPHOCYTE (test code = LYMPHPL) 31 % PLEURAL FLD MONOCYTE (test code = MONOPL) 26 % PLEURAL FLD MACROPHAGE (test code = MACPL) 5 % PLEURAL FLD MESOTHELIAL (len t code = MESPL) RARE GLUCOSE [id number] 12:19:00* Test Item Value Reference Range Interpretation Comme nts GLUCOSE BEDSIDE (test code = GLUBED) 166 MG/DL 70-110 H Performed by cer tified metal drilling machine operator at [facility] TOTAL IRON BINDING [id number] 10:08:00* Test Item Value Reference Range Interpretation Comme nts SERUM IRON (test code = IRON) 24 mcg/dL 35-150 L TOTAL IRON BINDING CAPACITY (test code = TIBC) 378 mcg/dL 260-445 N UIBC (test code = UIBC) 354 mcg/dL IRON SATURATION (test code = FESAT) 6.3 % 14-34 L [id number] 10:08:00* Test Item Value Reference Range Interpretation Comme nts FERRITIN (test code = BOB) 34.5 ng/mL 23.9-336.2 N BASIC METABOLIC [id number] 09:58:00* Test Item Value Reference Range Interpretation Comme nts SODIUM (test code = NA) 138 mEq/L 134-147 N POTASSIUM (test code = K) 4.9 mEq/L 3.4-5.0 N CHLORIDE (test code = CL) 104 mEq/L 100-108 N CARBON DIOXIDE (test code = CO2) 25 mEq/l 21-33 N ANION GAP (test code = GAP) 14 0-20 N GLUCOSE (test code = GLU) 119 mg/dL 70-110 H BLOOD UREA NITROGEN (test code = BUN) 68 mg/dL 7-18 H GLOMERULAR FILTRATION RATE (test code = GFR) 19.7 70-80 L The Glomerular Filtration Rate is a calculated parameterbased on serum Creatinine, patient age and sex. GFR valuesless than 60 mL/min/1.73 square meters are indicative ofChronic Kidney Disease. Values less than 15 mL/min/1.73square meters indicate Kidney failure. The calculation forGFR is based on the CKD-EPI (2020) calculation. This formulais race indifferent and is the recommended formula for GFRby the National Kidney Foundation for Adults.The GFR will not calculate if the sex is unknown or if thepatient's age is <18 years. CREATININE (test code = CREAT) 3.1 mg/dL 0.6-1.3 H CALCIUM (test code = CA) 9.7 mg/dL 8.0-10.5 N [id number] 09:58:00* Test Item Value Reference Range Interpretation Comme nts PHOSPHOROUS (test code = PHOS) 4.8 MG/DL 2.5-4.9 N [id number] 09:58:00* Test Item Value Reference Range Interpretation Comme nts MAGNESIUM (test code = MAG) 2.03 mg/dL 1.80-2.40 N CBC W/AUTO [id number] 09:38:00* Test Item Value Reference Range Interpretation Comme nts WHITE BLOOD CELL (test code = WBC) 5.1 x10 3/uL 4.5-11.0 N RED BLOOD CELL (test code = RBC) 3.80 x10 6/uL 4.00-5.60 L HEMOGLOBIN (test code = HGB) 9.4 g/dL 12.5-16.9 L HEMATOCRIT (test code = HCT) 30.7 % 37.5-50.7 L MEAN CELL VOLUME (test code = MCV) 80.8 fL 81.0-99.0 L MEAN CELL HGB (test code = MCH) 24.7 pg 27.0-33.0 L MEAN CELL HGB CONCETRATION (test code = MCHC) 30.6 g/dL 33.0-37.0 L RED CELL DISTRIBUTION WIDTH CV (test code = RDW) 16.1 % 11.5-14.5 H RED CELL DISTRIBUTION WIDTH SD (test code = RDW-SD) 48.0 fL 37.0-54.0 N PLATELET COUNT (test code = PLT) 181 x10 3/uL 150-400 N MEAN PLATELET VOLUME (test c ode = MPV) 10.7 fL 7.0-9.0 H NEUTROPHIL % (test code = NT%) 65.2 % 56.0-77.0 N IMMATURE GRANULOCYTE % (test code = IG%) 0.2 % 0.0-2.0 N LYMPHOCYTE % (test code = LY%) 17.8 % 14.0-32.0 N MONOCYTE % (test code = MO%) 9.5 % 4.8-9.0 H EOSINOPHIL % (test code = EO%) 6.3 % 0.3-3.7 H BASOPHIL % (test code = BA%) 1.0 % 0.0-2.0 N NUCLEATED RBC % (test code = NRBC%) 0.0 % 0-0 N NEUTROPHIL # (test code = NT#) 3.29 x10 3/uL 2.0-7.6 N IMMATURE GRANULOCYTE # (test code = IG#) 0.01 x10 3/uL 0.00-0.03 N LYMPHOCYTE # (test code = LY#) 0.90 x10 3/uL 1.0-3.8 L MONOCYTE # (test code = MO#) 0.48 x10 3/uL 0.1-0.8 N EOSINOPHIL # (test code = EO#) 0.32 x10 3/uL 0.0-0.2 H BASOPHIL # (test code = BA#) 0.05 x10 3/uL 0.0-0.2 N NUCLEATED RBC # (test code = NRBC#) 0.00 x10 3/uL 0.0-0.1 N MANUAL DIFF REQUIRED (test c ode = MDIFF) NO GLUCOSE [id number] 06:42:00* Test Item Value Reference Range Interpretation Comme nts GLUCOSE BEDSIDE (test code = GLUBED) 118 MG/DL 70-110 H Performed by jerome ohara metal drilling machine operator at [facility] - XR CHEST 1 [id number] 00:00:00 [facility] 1945 Sex: M FAX: Kristina Adrian MD [phone] [place]: St: ADM FAX: Manuel Gaxiola MD [phone] FAX: Terri Matos FAX: Raoul Bowens MD [phone] Name: ROBE RITCHIE [facility] : 1945 Age/S: 77/M [address] [place] [address] Unit #: [id number] Loc: [address] [place] [id number] Phys: Terri Matos MD Acct: [id number] Dis Date: Status: ADM IN PHONE #: [phone] Exam Date: 11/02/2022 FAX #: [phone] Reason: POST RIGHT THORACENTESIS EXAMS: CPT CODE: [id number] XR CHEST 1 V 13453 PROCEDURE INFORMATION: Exam: XR Chest Exam date and time: 11/02/2022 2:22 PM Age: 77 years old Clinical indication: Screening exam; Other screening; Additional info: Post right thoracentesis TECHNIQUE: Imaging protocol: Radiologic exam of the chest. Views: 1 view. COMPARISON: CR XR CHEST 1V 11/01/2022 2:50 PM FINDINGS: Lungs: Decreased but persistent right lower lobe infiltrate and pleural effusion. Pleural spaces: See "Lungs" finding. Heart/Mediastinum: Mild cardiomegaly. Bones/joints: Post sternotomy change. Broken mid sternotomy wire. Thoracic spurring. Post sternotomy change to the left shoulder. IMPRESSION: Decreased but persistent right lower lobe infiltrate and pleural effusion. at 2162 Reported and signed by:Uriel Leon M.D. CC: Kristina Hodge MD; Manuel Gandhi MD; Terri Matos MD; Raoul Dailey MD Technologist: RT Bassam(R) Trnscrd Date/Time/By: 11/02/2022 (1454) : By: [id number] [facility] D/T: S: 11/02/2022 (145) PAGE 1 Signed Report- US THORACENTESIS [id number] 00:00:00 [facility] 1945 Sex: M Name: ROBE RITCHIE [facility] : 1945 Age/S: 77 / M [address] [place] [address] Unit #: [id number] Loc: [place] [address] Phys: Taylor Lowery MD Acct: [id number] Dis Date: Status: ADM IN PHONE #: [phone] Exam Date: 11/02/2022 1410 FAX #: [phone] Reason: r effusion EXAMS: CPT CODE: [id number] US THORACENTESIS W/IMAG [id number] PROCEDURE INFORMATION: Exam: IR Thoracentesis, Aspiration With Image Guidance Exam date and time: 11/02/2022 1:20 PM Age: 77 years old Clinical indication: Condition or disease; Additional info: R effusion TECHNIQUE: Imaging protocol: Radiology Procedure. Thoracentesis, needle or catheter, aspiration of the pleural space with imaging guidance. Concurrent real time US visualization of vascular needle entry. Permanent recording and reporting. COMPARISON: CR XR CHEST 1V 11/01/2022 2:50 PM FINDINGS: Advanced practice providers: None. CONSENT AND SEDATION INFO: Consent: The risks, benefits and alternatives of the procedure were discussed. Informed consent was obtained. Time out: Timeout was performed prior to the procedure. Sterile technique: All elements of maximal sterile barrier technique were followed which include cap, mask, sterile gown, sterile gloves, sterile full- body drape, hand hygiene, 2% chlorhexidine for cutaneous antisepsis (skin prep), sterile ultrasound gel, and sterile probe cover. Procedure summary: Ultrasound was used to evaluate potential access sites. Preliminary ultrasound demonstrates moderate right pleural effusion. The right chest was sterilely prepped and draped. 1% lidocaine was used for local anesthesia. Using ultrasound guidance, 5 [place] [employer] sheathed needle was advanced into the pleural space using trocar technique. Pleural fluid was aspirated after removal of the needle. The sheath was removed, and pressure was applied at the puncture site with adequate hemostasis. Sterile dressing was applied. Surgical tissue or fluid: Total volume of 1200 mL of clear yellow pleural fluid was removed. Complications: There were no evident complications and the patient had no complaints. IMPRESSION: Technically successful ultrasound guided right thoracentesis. PAGE 1 Signed Report (CONTINUED) Name: ROBE RITCHIE JR [facility] : 1945 Age/S: 77 / M [address] [place] [address] Unit #: [id number] Loc: [place] [address] Phys: Taylor Lowery MD Acct: [id number] Dis Date: Status: ADM IN PHONE #: [phone] Exam Date: 11/02/2022 1410 FAX #: [phone] Reason: r effusion EXAMS: CPT CODE: [id number] US THORACENTESIS W/IMAG [id number] (Continued) at 1633 Reported and signed by: Terri Matos M.D. CC: Kristina Maldonado; Manuel Gandhi MD; Taylor Lowery MD; Raoul Dailey MD Technologist: Daisy Tate [facility] Date/Time:11/02/2022 (1632) [id number] Orig Print D/T: S: 11/02/2022 (1632) Probe: PAGE 2 Signed ReportGLUCOSE [id number] 20:29:00* Test Item Value Reference Range Interpretation Comme [facility] GLUCOSE BEDSIDE (test code = GLUBED) 141 MG/DL 70-110 H Performed by cer tified metal drilling machine operator at [facility] GLUCOSE [id number] 17:38:00* Test Item Value Reference Range Interpretation Comme nts GLUCOSE BEDSIDE (test code = GLUBED) 176 MG/DL 70-110 H Performed by cer tified metal drilling machine operator at [facility] GLUCOSE [id number] 12:19:00* Test Item Value Reference Range Interpretation Comme nts GLUCOSE BEDSIDE (test code = GLUBED) 153 MG/DL 70-110 H Performed by cer tified metal drilling machine operator at [facility] BASIC METABOLIC [id number] 08:45:00* Test Item Value Reference Range Interpretation Comme nts SODIUM (test code = NA) 139 mEq/L 134-147 N POTASSIUM (test code = K) 5.0 mEq/L 3.4-5.0 N CHLORIDE (test code = CL) 105 mEq/L 100-108 N CARBON DIOXIDE (test code = CO2) 24 mEq/l 21-33 N ANION GAP (test code = GAP) 15 0-20 N GLUCOSE (test code = GLU) 132 mg/dL 70-110 H BLOOD UREA NITROGEN (test code = BUN) 63 mg/dL 7-18 H GLOMERULAR FILTRATION RATE (test code = GFR) 20.5 70-80 L The Glomerular Filtration Rate is a calculated parameterbased on serum Creatinine, patient age and sex. GFR valuesless than 60 mL/min/1.73 square meters are indicative ofChronic Kidney Disease. Values less than 15 mL/min/1.73square meters indicate Kidney failure. The calculation forGFR is based on the CKD-EPI (202) calculation. This formulais race indifferent and is the recommended formula for GFRby the National Kidney Foundation for Adults.The GFR will not calculate if the sex is unknown or if thepatient's age is <18 years. CREATININE (test code = CREAT) 3.0 mg/dL 0.6-1.3 H CALCIUM (test code = CA) 9.4 mg/dL 8.0-10.5 N [id number] 08:45:00* Test Item Value Reference Range Interpretation Comme nts PHOSPHOROUS (test code = PHOS) 4.3 MG/DL 2.5-4.9 N [id number] 08:45:00* Test Item Value Reference Range Interpretation Comme nts MAGNESIUM (test code = MAG) 2.17 mg/dL 1.80-2.40 N B-TYPE NATRIURETIC [id number] 08:42:00* Test Item Value Reference Range Interpretation Comme nts B-TYPE NATRIURETIC PEPTIDE ( test code = BNP) 295.0 PG/ML 0-100 H CBC W/AUTO [id number] 08:20:00* Test Item Value Reference Range Interpretation Comme nts WHITE BLOOD CELL (test code = WBC) 5.4 x10 3/uL 4.5-11.0 N RED BLOOD CELL (test code = RBC) 3.68 x10 6/uL 4.00-5.60 L HEMOGLOBIN (test code = HGB) 9.0 g/dL 12.5-16.9 L HEMATOCRIT (test code = HCT) 29.7 % 37.5-50.7 L MEAN CELL VOLUME (test code = MCV) 80.7 fL 81.0-99.0 L MEAN CELL HGB (test code = MCH) 24.5 pg 27.0-33.0 L MEAN CELL HGB CONCETRATION (test code = MCHC) 30.3 g/dL 33.0-37.0 L RED CELL DISTRIBUTION WIDTH CV (test code = RDW) 16.1 % 11.5-14.5 H RED CELL DISTRIBUTION WIDTH SD (test code = RDW-SD) 47.8 fL 37.0-54.0 N PLATELET COUNT (test code = PLT) 179 x10 3/uL 150-400 N MEAN PLATELET VOLUME (test c ode = MPV) 10.3 fL 7.0-9.0 H NEUTROPHIL % (test code = NT%) 70.5 % 56.0-77.0 N IMMATURE GRANULOCYTE % (test code = IG%) 0.2 % 0.0-2.0 N LYMPHOCYTE % (test code = LY%) 14.2 % 14.0-32.0 N MONOCYTE % (test code = MO%) 7.6 % 4.8-9.0 N EOSINOPHIL % (test code = EO%) 6.6 % 0.3-3.7 H BASOPHIL % (test code = BA%) 0.9 % 0.0-2.0 N NUCLEATED RBC % (test code = NRBC%) 0.0 % 0-0 N NEUTROPHIL # (test code = NT#) 3.83 x10 3/uL 2.0-7.6 N IMMATURE GRANULOCYTE # (test code = IG#) 0.01 x10 3/uL 0.00-0.03 N LYMPHOCYTE # (test code = LY#) 0.77 x10 3/uL 1.0-3.8 L MONOCYTE # (test code = MO#) 0.41 x10 3/uL 0.1-0.8 N EOSINOPHIL # (test code = EO#) 0.36 x10 3/uL 0.0-0.2 H BASOPHIL # (test code = BA#) 0.05 x10 3/uL 0.0-0.2 N NUCLEATED RBC # (test code = NRBC#) 0.00 x10 3/uL 0.0-0.1 N MANUAL DIFF REQUIRED (test c ode = MDIFF) NO GLUCOSE [id number] 06:16:00* Test Item Value Reference Range Interpretation Comme nts GLUCOSE BEDSIDE (test code = GLUBED) 146 MG/DL 70-110 H Performed by cer tified metal drilling machine operator at [facility] - XR CHEST 1 [id number] 00:00:00 [facility] 1945 Sex: M FAX: Kristina Adrian MD [phone] [place]: St: ADM FAX: Manuel Gaxiola MD [phone] FAX: Taylor Palacios MD [phone] FAX: Raoul Bowens MD [phone] Name: ROBE RITCHIE [facility] : 1945 Age/S: 77/M [address] [place] [address] Unit #: [id number] Loc: G.4421 [place] [address] Phys: Taylor Lowery MD Acct: [id number] Dis Date: Status: ADM IN PHONE #: [phone] Exam Date: 11/01 1525 FAX #: [phone] Reason: sob EXAMS: CPT CODE: [id number] XR CHEST 1 V 75720 PROCEDUREINFORMATION: Exam: XR Chest Exam date and time: 11/01/2022 2:50 PM Age: 77 years old Clinical indication: Shortness of breath; Additional info: SOB TECHNIQUE: Imaging protocol: Radiologic exam of the chest. Views: 1 view. COMPARISON: DX XR CHEST 2 V 10/29/2022 11:55 AM FINDINGS: Lungs: Increased moderate right lower lobe airspace opacity is noted. Small opacity in left lung base is increased. No interstitial edema. Pleural spaces: No left pleural effusion. Small right pleural effusion. No pneumothorax. Heart/Mediastinum: Heart size is mildly enlarged. Bones/joints: No acute abnormality. Midline s ternotomy wires. IMPRESSION: 1. Increased moderate right lower lobe pneumonia with small right pleural effusion. 2. Increased left base atelectasis/infiltrate. at 1556 Reported and signed by: Ronald Escalante M.D. CC: Kristina Hodge MD; Manuel Gandhi MD; Taylor Lowery MD; Raoul Dailey MD Technologist: Ck Alcala Trnscrd Date/Time/By: 11/01/2022 (7566) : By: [email or web address] Orig Print D/T: S: 11/01/2022 (1918) PAGE 1 Signed Report- [facility] 2022-11-01 00:00:00 [facility] LEONOR BAUTISTAName: ROBE RITCHIE : 1945 Sex: M Name: ROBE RITCHIE [facility] Leonor Bautista : 1945 Age/S: 77 / M [address] [place] [address] Unit #: [id number] Loc: [place]Y [address] Phys: Cynthia Silver AGACNP Acct: [id number] Dis Date: Status: ADM IN PHONE #: [phone] Exam Date: 11/01/2022 1058 FAX #: [phone] Reason: rule out DVT, LE edema, erythema EXAMS: CPT CODE: [id number] DUP VEIN MARIE 75322 PROCEDURE INFORMATION: Exam: US Duplex Lower Extremity Veins, Bilateral Exam date and time: 11/01/2022 10:13 AM Age: 77 yearsold Clinical indication: Edema, localized; Lower extremity, bilateral; Additional info: Rule out dvt, le edema, erythema TECHNIQUE: Imaging protocol: Real-time duplex ultrasound of the bilateral extremities with 2-D jason scale, color Doppler flow and spectral waveform analysis with image documentati on. Complete exam focused on the bilateral lower extremity veins. COMPARISON: No relevant prior studies available. FINDINGS: Right deep veins: Unremarkable. The common femoral, femoral, proximal profunda femoral and popliteal veins are patent without thrombus. Normal Doppler waveforms. Normal compressibility and/or augmentation response. Right superficial veins: Saphenofemoral junction is patent without thrombus. Left deep veins: Unremarkable. The common femoral, femoral, proximal profunda femoral and popliteal veins are patent without thrombus. Normal Doppler waveforms. Normal compressibility and/or augmentation response. Left superficial veins: Saphenofemoral junction is patent without thr ombus. Soft tissues: Right Mercedes's cyst measures 5.1 X 1.4 X 2.8 cm. Soft tissue edema. IMPRESSION: No evidence of deep vein thrombosis. at 1108 Reported and signed by: Uriel Leon M.D. CC: Kristina Hodge MD; Manuel Gandhi MD; Cynthia Dailey MD Technologist: Rosa Trujillo RDMS(AB)(OB) Trnscb Date/Time: 11/01/2022 (1108) [id number] PAGE 1 Signed Report- US RETROPERITONEAL [id number] 00:00:[address] [facility] [place] [place] ROBE RITCHIE : 1945 Sex: M Name: ROBE RITCHIE [facility] Leonor Bautista : 1945 Age/S: 77 / M [address] [place] [address] Unit #: [id number] Loc: [place] [address] Phys: Sherly Gomes MD Acct: [id number] Dis Date: Status: ADM IN PHONE #: [phone] Exam Date: 11/01/2022 1100 FAX #: [phone] Reason: CKD EXAMS: CPT CODE: [id number] US RETROPERITONEAL COM [id number] PROCEDURE INFORMATION: Exam: US Retroperitoneal; Com plete; Kidneys and Bladder Exam date and time: 11/01/2022 10:05 AM Age: 77 years old Clinical indication: Abnormal findings; Abnormal lab test; Abnormal kidney function lab tests; Additional info: CkdTECHNIQUE: Imaging protocol: Real-time ultrasound of the retroperitoneum with image documentation. Complete exam focused on the kidneys and bladder. COMPARISON: No relevant prior studies available. FINDINGS: Right kidney: The right kidney measures 9.5 cm. No stones. No hydronephrosis.The renal corticomedullary differentiation is maintained. Simple right renal cyst measures 1.9 cm. Left kidney: The left kidney measures 10.4 cm. No stones. No hydronephrosis.The renal corticomedullary differentiation is maintained. Aorta: Obscured aorta bifurcation by bowel gas. Intraperitoneal space: Ascites. Urinary bladder: Unremarkable. IMPRESSION: 1. No acute renal abnormality. 2. Ascites. at 1115 Reported and signed by: Uriel Leon M.D. CC: Sherly Gomes MD; Kristina Hodge MD; Manuel Gandhi MD; Raoul Dailey MD Technologist: Rosa Trujillo RDMS(AB)(OB) Trnscb Date/Time: 11/01/2022 (1115) [email or web address] Orig Print D/T: S: 11/01/2022 (1115) Probe: PAGE 1 Signed Report GLUCOSE [id number] 19:10:00* Test Item Value Reference Range Interpretation Comme nts GLUCOSE BEDSIDE (test code = GLUBED) 181 MG/DL 70-110 H Performed by cer tified metal drilling machine operator at [facility] GLUCOSE [id number] 09:03:00* Test Item Value Reference Range Interpretation Comme nts GLUCOSE BEDSIDE (test code = GLUBED) 114 MG/DL 70-110 H Performed by cer tified metal drilling machine operator at [facility] GLUCOSE [id number] 07:24:00* Test Item Value Reference Range Interpretation Comme nts GLUCOSE BEDSIDE (test code = GLUBED) 123 MG/DL 70-110 H Performed by [facility] tified metal drilling machine operator at [facility] BASIC METABOLIC [id number] 11:52:00* Test Item Value Reference Range Interpretation Comme nts SODIUM (test code = NA) 141 mEq/L 134-147 N POTASSIUM (test code = K) 5.0 mEq/L 3.4-5.0 N CHLORIDE (test code = CL) 105 mEq/L 100-108 N CARBON DIOXIDE (test code = CO2) 25 mEq/l 21-33 N ANION GAP (test code = GAP) 16 0-20 N GLUCOSE (test code = GLU) 107 mg/dL 70-110 N BLOOD UREA NITROGEN (test code = BUN) 69 mg/dL 7-18 H GLOMERULAR FILTRATION RATE (test code = GFR) 17.6 70-80 L The Glomerular Filtration Rate is a calculated parameterbased on serum Creatinine, patient age and sex. GFR valuesless than 60 mL/min/1.73 square meters are indicative ofChronic Kidney Disease. Values less than 15 mL/min/1.73square meters indicate Kidney failure. The calculation forGFR is based on the CKD-EPI (2020) calculation. This formulais race indifferent and is the recommended formula for GFRby the National Kidney Foundation for Adults.The GFR will not calculate if the sex is unknown or if thepatient's age is <18 years. CREATININE (test code = CREAT) 3.4 mg/dL 0.6-1.3 H CALCIUM (test code = CA) 9.5 mg/dL 8.0-10.5 N [id number] 11:52:00* Test Item Value Reference Range Interpretation Comme nts PREALBUMIN (test code = PREALB) 27.7 mg/dL 16.0-40.0 N PROTHROMBIN [id number] 11:46:00* Test Item Value Reference Range Interpretation Comme nts PROTHROMBIN TIME PATIENT (test code = PTP) 13.6 SECONDS 9.3-12.9 H INTERNATIONAL NORMAL RATIO (test code = INR) 1.2 0.8-1.2 N TARGET INR BY INDICATION Indication INR1. Prophylaxis of venous thrombosis 2.0 - 3.0 (orthopedic surgery), Prophylaxis of venous thrombosis (other than high-risk surgery), Treatment of Deep Vein Thrombosis/Pulmonary Embolism, Prevention of systemic embolism - Tissue heart valves, Acute Myocardial Infarction (to prevent systemic embolism), Valvular heart disease, Atrial Fibrillation, Bileaflet mechanical valve in aortic position.2. Mechanical prosthetic valves (high risk), 2.5 - 3.5 Presence of Lupus Anticoagulant or Antiphospholipid Antibodies, Prevention of systemic embolism - Acute Myocardial Infarction (to prevent recurrent infarct). CBC W/AUTO [id number] 11:33:00* Test Item Value Reference Range Interpretation Comme nts WHITE BLOOD CELL (test code = WBC) 5.7 x10 3/uL 4.5-11.0 N RED BLOOD CELL (test code = RBC) 3.70 x10 6/uL 4.00-5.60 L HEMOGLOBIN (test code = HGB) 9.2 g/dL 12.5-16.9 L HEMATOCRIT (test code = HCT) 30.3 % 37.5-50.7 L MEAN CELL VOLUME (test code = MCV) 81.9 fL 81.0-99.0 N MEAN CELL HGB (test code = MCH) 24.9 pg 27.0-33.0 L MEAN CELL HGB CONCETRATION (test code = MCHC) 30.4 g/dL 33.0-37.0 L RED CELL DISTRIBUTION WIDTH CV (test code = RDW) 16.3 % 11.5-14.5 H RED CELL DISTRIBUTION WIDTH SD (test code = RDW-SD) 49.0 fL 37.0-54.0 N PLATELET COUNT (test code = PLT) 191 x10 3/uL 150-400 N MEAN PLATELET VOLUME (test c ode = MPV) 10.7 fL 7.0-9.0 H NEUTROPHIL % (test code = NT%) 73.3 % 56.0-77.0 N IMMATURE GRANULOCYTE % (test code = IG%) 0.2 % 0.0-2.0 N LYMPHOCYTE % (test code = LY%) 14.6 % 14.0-32.0 N MONOCYTE % (test code = MO%) 8.2 % 4.8-9.0 N EOSINOPHIL % (test code = EO%) 2.8 % 0.3-3.7 N BASOPHIL % (test code = BA%) 0.9 % 0.0-2.0 N NUCLEATED RBC % (test code = NRBC%) 0.0 % 0-0 N NEUTROPHIL # (test code = NT#) 4.21 x10 3/uL 2.0-7.6 N IMMATURE GRANULOCYTE # (test code = IG#) 0.01 x10 3/uL 0.00-0.03 N LYMPHOCYTE # (test code = LY#) 0.84 x10 3/uL 1.0-3.8 L MONOCYTE # (test code = MO#) 0.47 x10 3/uL 0.1-0.8 N EOSINOPHIL # (test code = EO#) 0.16 x10 3/uL 0.0-0.2 N BASOPHIL # (test code = BA#) 0.05 x10 3/uL 0.0-0.2 N NUCLEATED RBC # (test code = NRBC#) 0.00 x10 3/uL 0.0-0.1 N MANUAL DIFF REQUIRED (test c ode = MDIFF) NO - XR CHEST 2 [id number] 00:00:[address] [facility] [place] [place]: ROBE RITCHIE : 1945 Sex: M FAX: Manuel Gaxiola MD [phone] [place]: St: PRE FAX: Raoul Bowens MD [phone] ------ Name: ROBE RITCHIE JR [facility] : 1945 Age/S: 77/M [address] [place] [address] Unit #: [id number] Loc: [place] [address] Phys: Raoul Dailey MD Acct: [id number] Dis Date: Status: PRE IN PHONE #: Exam Date: 10/29/2022 1225 FAX #: [phone] Reason: PAT EXAMS: CPT CODE: [id number] XR CHEST 2 V 88246 PROCEDURE INFORMATION: Exam: XR Chest Exam date and time: 10/29/2022 11:55 AM Age: 77 years old Clinical indication: Other: Pre-op; Additional info: Pat TECHNIQUE: Imaging protocol: Radiologic exam of the chest. Views: 2 views. PA and Lateral COMPARISON: No relevant prior studies available. FINDINGS: Lungs: No significant interstitial edema. No focal consolidation in left lung. Moderate opacity in the right lower lobe is noted. Pleural spaces: No significant left pleural effusion. Small right pleural effusion. Heart/Mediastinum: The heart size is normal. Bones/joints: Midline sternotomy wires. IMPRESSION: 1. Moderate right lower lobe opacity, possibly pneumonia. 2. Small right pleural effusion. at 1252 Reported and signed by: Ronald Escalante M.D. CC: Manuel Gandhi MD; Raoul Dailey MD Technologist: Ashanti Stewart, RT(R); Shauna Valdes [facility] Date/Time/By: 10/29/2022 (5770) : By: [email or web address] Orig Print D/T: S: 10/29/2022 (3111) PAGE 1 Signed Report Notes Date/Time Note Provider Source 2023-01-30 13:42:00 [id number] 12T13:42:[id number] [place] 522578 PATIENT NAME: ROBE RITCHIE JR ADMIT DATE: 01/30/23ACCOUNT NO: [id number] ROOM NO: [facility] AGE: 77 REPORT TYPE: eECHOCARDIOGRAM REPORT SEX: M ADMITTING PHYSICIAN:Raoul Dailey MD ATTENDING PHYSICIAN:Mickey Briggs MD *[address] [address]Xoxgg: [phone]: [phone] Limited Transthoracic Echocardiogram Patient: Robe RitchieStudy Date: 01/30/2023 BP: Location: COCCLURN: [id number] : 1945 Age: 77 Height: 65 in / 165.1 cmAccession#: [id number] Gender: M Weight: 216 lb / 98.2 kgBMI/BSA: 36 kg/m 2 / 2.16 m 2 *Ordering Physician: * Wade Carey *Interpreting Physician: * Mickey Briggs MD*Registered Vascular Technologist (Rvt): Mary Dennis RDCS Indications: R/O PERICARDIAL EFFUSION. Study data: Transthoracic echocardiogram, limited study. Limited 2Dand limited spectral Doppler. Location: Bedside. Patient room number:PACU. Findings Left ventricle: The estimated ejection fraction is 50-54%.Pericardium: There is no pericardial effusion. Measurements Left ventricle Value RefPATIENT NAME: ROBE RITCHIE FRANDY, LAX 4.8 cm 4.2 - 5.8 ESD, LAX 3.5 cm 2.5 - 4.0 ESD/bsa, LAX 1.6 cm/m 2 1.3 - 2.1 FS, LAX 28 % 25 - 43 PW, ED 1.2 cm 0.6 - 1.0 IVS/PW, ED 0.99 --------- EF 54 % 52 - 72 Ventricular septum Value Ref IVS, ED 1.2 cm 0.6 - 1.0 Tricuspid valve Value Ref TR peak v 3.63 m/sec <=2.8 Peak RV-RA grad, S 53 mm Hg --------- Conclusions Summary: Left ventricle: The estimated ejection fraction is 50-54%. Prepared and electronically signed by Mickey Briggs MD01/30/2023 13:42 at 1342 PATIENT NAME: ROBE RITCHIE JR :42:0 0G.[id number] for patient yhqqTSSBGFNCEHDSRE5996-52-93X72:43:01 HCACL 2023-01-30 11:38:00 [id number] 12T11:38:00 [facility] ([facility])Discharge SummaryREPORT#:[id number] REPORT STATUS: SignedDATE:01/30/23 TIME: 1138 PATIENT: ROBE RITCHIE JR UNIT #: [id number]#: [id number] [address] AGE: 77 SEX: M ATTEND: Mickey Briggs [facility] AUTHOR: Wade Carey EMERGENCY MEDICAL TECHNICIAN BASIC * ALL edits or amendments must be made on the electronic/computer document * Wade Carey 01/30/23 1138:PCP PCPDischarge to: smoot General InformationDischarge date: 01/30/23Discharge diagnosis:AFIBHospital course:Patient with paroxysmal atrial fibrillation, CHADSVASC score of 6, and intolerance to long-term anticoagulation due to bleeding risk. Patient is s/p successful implantation of a 24mm Watchman device in the left atrial appendage. Patient tolerated the procedure without post-op complications. No thrombus was identified in the pre-/intra-op LETA. Postoperatively, chest x-ray is negative for any acute process. Post-op echo didnot show a pericardial effusion. Patient ambulated without any difficulty, and heart rate and blood pressure are stable. Right groin suture removed by this CLOTH HANDLER. No infection, bleeding, or hematoma. Dermabond applied and intact. Patient was provided with post-Watchman discharge instructions. Patient is to follow up with PCP and cone cleaner in 1 to 2 weeks post discharge. Patient is to follow up with cone cleaner for the 45-day LETA, and for anticoagulation recommendation. Patient is to continue Eliquis for 6 weeks, then transition to aspirin and Plavix. Duration of aspirin is lifelong. Duration of Plavix is 6 months post 45-day LETA. Post-Watchman discharge instructions given to the patient who verbalized understanding, and patient was instructed to report any complaints of chest pain, shortness of breath, lightheadedness, or dizziness to the cone cleaner. Dispo: It is medically necessary that patients undergoing percutaneous left atrial appendage occlusion are admitted as an inpatient. This patient had a recovery that was earlier than expected and can be discharged today. Med Rec PCPPCP:PCP: Manuel Gandhi MD Med RecDischarge meds:Continue taking these medications:ATORVASTATIN (LIPITOR) 40 MG TAB 40 MILLIGRAM ORAL BEDTIME. Comments: TAKES AT 3617-6070 DOXAZOSIN (CARDURA) 2 MG TAB 2 MILLIGRAM ORAL BEDTIME. Comments: TAKES 8329-0980 ASPIRIN (ASPIRIN) 81 MG TAB.CHEW 81 MILLIGRAM ORAL BEDTIME. Dapagliflozin Propanediol (FARXIGA) 5 MG TAB 5 MILLIGRAM ORAL DAILY. GABAPENTIN (NEURONTIN) 300 MG CAP 300 MILLIGRAM ORAL BEDTIME. PRAMIPEXOLE DI-HCL (MIRAPEX) 0.25 MG TAB 0.25 MILLIGRAM ORAL THREE TIMES A DAY. [AREDS N2 EYES] 1 CAPSULE ORAL TWICE DAILY. CARBIDOPA/LEVODOPA (SINEMET 25/100 MG) 25 MG-100 MG TAB 2 TABLET ORAL THREE TIMES A DAY. SODIUM BICARBONATE (SODIUM BICARBONATE) 650 MG TAB 650 MILLIGRAM ORAL TWICE DAILY. UMECLIDINIUM BRM/VILANTEROL TR (ANORO ELLIPTA 62.5-25 MCG INH) 62.5 MCG-25 MCG/ACTUATION INHALER 1 PUFF INHALATION RT - DAILY. [PREVAGEN EXT STRENGT] 1 ORAL DAILY. [BALANCE FRUIT] 3 TABLET ORAL DAILY. [BALANCE VEGGIES] 3 TABLET ORAL DAILY. UBIDECARENONE (CO Q-10) (Unknown Strength) CAP Unknown Dose ORAL DAILY. DOCUSATE SODIUM (COLACE) 100 MG CAP 100 MILLIGRAM ORAL DAILY. FUROSEMIDE (LASIX) 40 MG TAB 40 MILLIGRAM ORAL DAILY. Qty = 30 APIXABAN (ELIQUIS) 5 MG TAB 5 MILLIGRAM ORAL TWICE DAILY. Qty = 60 METOPROLOL TARTRATE (LOPRESSOR) 25 MG TAB 25 MILLIGRAM ORAL TWICE DAILY. Qty = 60 LISINOPRIL (ZESTRIL) 40 MG TAB 40 MILLIGRAM ORAL DAILY. hydrALAZINE (APRESOLINE) 25 MG TAB 25 MILLIGRAM ORAL THREE TIMES A DAY. [INSULIN PEN] ObjectiveVS/I OLast Documented: Result Date Time O2 Delivery Simple mask 01/30 1135 O2 Flow Rate 14 01/30 1135 Temp 36.5 01/30 1118 Pulse Ox 96 01/30 0901 B/P 138/65 01/30 0901 Pulse 69 01/30 0901 Resp 16 01/30 0901 PATIENT WEIGHT: Weight (lb): 216Weight (oz): 14.96Weight (kg): 98.400 General appearance: alert, awake, orientedCardiovascular: regular rate rhythmRespiratory: clear to auscultation, no distressGI: soft, non-tenderExtremities: moves allNeuro/TUMBLER PLATER: alert, oriented X 3Skin: dryWound/incision: Location:Right groin suture removed by this CLOTH HANDLER. No infection, bleeding, or hematoma. Dermabond applied and intact. ResultsFindings/Data:Laboratory Tests: 01/30 01/30 01/30 1123 1047 0838 Chemistry POC Glucose (70 - 110 MG/DL) 140 H 134 H Coagulation Activated Coag Time (74 - 137 SEC) 263 H Treatments ProceduresTreatments Procedures:Left atrial appendage closure using 24 mm Watchman FLX closure device.Imaging:Recent Impressions:RADIOLOGY - XR CHEST 2 V 01/28 1311 Report Impression - Status: SIGNED Entered: 01/28/2023 1349 IMPRESSION: No acute cardiopulmonary findings. Impression By: Altagracia Marroquin M.D. Discharge Instructions PCPPCP:PCP: Manuel Gandhi MD )( Discharge to: Home/Self Care Discharge InstructionsAdditional Discharge Routines: Attending Follow-Up)( Diet: Cardiac)( Activity: As Tolerated Follow-up AppointmentsAttending Physician: Attending Physician: Raoul Dailey MD Attending physician follow up timeframe: In 1-2 weeks Mickey Briggs 01/30/23 1716:Attestations Physician AttestationAgree w/findings plan:I have seen the pt, I Agree with the findings and plan as documented by Wade Keating. at 1529 at 1717 RPT #:[id number] OF REPORTDSDischarge pcwwbcr5529-32-49R46:38:00G.[id number] ailable for patient vaquDOPUKIDBWIPVUL6852-13-25P63:29:15 [facility] 2023-01-30 11:28:00 [id number] 12T11:28:[id number] [place] [address] PATIENT NAME: ROBE RITCHIE JR ADMIT DATE: 01/30/23ACCOUNT NO: [id number] ROOM NO: [facility] AGE: 77 REPORT TYPE: eELECTROCARDIOGRAM REPORT SEX: M ADMITTING PHYSICIAN:Raoul Dailey MD ATTENDING PHYSICIAN:Mickey Briggs MD Order:[id number] Reason : S/P WATCHMAN Test Date/Time Stamp:SatJan 30 2023 11:28:33Blood Pressure : / mmHGVent. Rate : 070 BPM Atrial Rate : 037 BPM P-R Int : 000 ms QRS Dur : 190 ms QT Int : 466 ms P-R-T Axes : 000 -79 097 degrees QTc Int : 503 ms Ventricular-paced rhythm with occasional premature ventricular complexesAbnormal ECGPRE_OPConfirmed by OPAL CERVANTES MD ([id number]) on 01/30/2023 7:16:23 PM Referred By: Raoul Dailey Confirmed by:OPAL CERVANTES MD at 7476 PATIENT NAME: ROBE RITCHIE JR .[id number] AVAvailable for patient [id number]:16:42 [facility] 2023-01-30 10:59:00 [id number] 12T10:59:[id number] [address] PATIENT NAME: ROBE RITCHIE JR ADMIT DATE: 01/30/23ACCOUNT NO: [id number] [facility] 78 REPORT TYPE: OPERATIVE REPORT SEX: M ADMITTING PHYSICIAN:Raoul Dailey MD ATTENDING PHYSICIAN:Mickey Briggs MD OPERATION DATE: 01/30/2023 PREOPERATIVE DIAGNOSIS: POSTOPERATIVE DIAGNOSIS: PROCEDURE PERFORMED: Left atrial appendage closure using 24 mm Watchman FLX closure device. SURGEON: Raoul Dailey MD DESULPHURIZER OPERATOR: ANESTHESIA: INDICATION: Atrial fibrillation, intolerance of anticoagulants and high risk ofstroke. ACCESS: Right femoral vein, 16-[place] closed with kihsja-lz-ommzc suture. COMPLICATIONS: None. BLEEDING: Less than 50 mL PROCEDURE IN DETAIL: After risks, benefits and alternatives were explained, thepatient agreed to proceed and signed informed consent. The patient was brought into the cardiac Catheterization Laboratory, prepped and draped in sterile fashion. Then anesthesia was applied and LETA probe was inserted by anesthesia team and there was no thrombus in the appendage as such I used a micropuncture kit with ultrasound guidance and accessed right femoral vein and then placed 8-[place] Citizen [place] sheath. Gave partial dose of heparin and then upgraded to 16-[place] Citizen Cook sheath and took SL1 sheath into the SVC over a wire and then the [place] needle inside that descended into the interatrial septum and under the LETA and fluoroscopy guidance and in the low mid position, transseptal puncture was performed successfully. LA pressure was measured between 15 and 17 mmHg. We then sent a ProTrack wire into the left atrium and the full dose of heparin by that time was administered to assure ACT level above 250 throughout the procedure and then I exchanged the SL1 sheath for the Watchman double curve sheath and then I took a pigtail into the left atrium navigated that into the appendage and then telescoped the Watchman sheath over it into the appendage andperformed appendage angiogram and determined 24 mm device will be suitable for closure. The device was prepped and de-aired in the usual sterile fashion and then removed the pigtail after good bleed back from the sheath with a positive PATIENT NAME: ROBE RITCHIE JR flush through the Watchman delivery system. Watchman delivery system was introduced into the sheath and advanced all the way to the appendage and securedin place and then under fluoroscopy and LETA guidance, the Watchman was deployed successfully. PASS criteria were evaluated and met and then device was releasedin position. Subsequently removed the Watchman sheath and delivery system inside of it and then removed the 16-[place] Cook sheath and applied a rthewm-fw-wajab suture for closure with good hemostasis. The patient tolerated the procedure very well and was transferred to recovery in stable condition. CONCLUSION: Successful left atrial appendage closure using 24 mm Watchman FLX closure device. Dictated By: Raoul Dailey MD Date Dictated: 01/30/2023 10:59:18Date Transcribed: 01/30/2023 13:19:45SR/Jus #: [id number] ID: [id number] by Raoul Dailey MD On 04/30/2023 10:54:12 AM at 1054 PATIENT NAME: ROBE RITCHIE JR [id number]:19:00G.[id number] lable for patient gxpzXTPOALAVWMTFHS8785-88-69Z84:54:56 [facility] 2023-01-28 11:52:00 [id number] 10T11:52:[id number] [address] PATIENT NAME: ROBE RITCHIE JR ADMIT DATE: ACCOUNT NO: [id number] ROOM NO: AGE: 77 REPORT TYPE: eELECTROCARDIOGRAM REPORT SEX: M ADMITTING PHYSICIAN:Raoul Dailey MD ATTENDING PHYSICIAN:Raoul Dailey MD Order:[id number] Reason : PREOP Test Date/Time Stamp:SatJan 28 2023 11:52:40Blood Pressure : / mmHGVent. Rate : 075 BPM Atrial Rate : 086 BPM P-R Int : 000 ms QRS Dur : 186 ms QT Int : 478 ms P-R-T Axes : 000 263 104 degrees QTc Int : 533 ms Sinus rhythm with complete heart block and Ventricular-paced rhythm withfrequent premature ventricular complexesAbnormal ECGPRE_OPConfirmed by OPAL CERVANTES MD ([id number]) on 01/28/2023 4:15:17 PM Referred By: Raoul Dailey Confirmed by:OPAL ECRVANTES MD at 1615 PATIENT NAME: ROBE RITCHIE JR .[id number] AVAvailable for patient [id number]:15:43 [facility] 2022-11-06 10:30:00 [id number] 17T10:30:00 [facility] Discharge SummaryREPORT#:[id number] REPORT STATUS: SignedDATE:11/06/22 TIME: 1030 PATIENT: ROBE RITCHIE JR UNIT #: [id number]#: [id number] [address] [birth year] AGE: 77 SEX: M ATTEND: Kristina Hodge MDADM AUTHOR: Lis Benson MD * ALL edits or amendments must be made on the electronic/computer document * General InformationDate of admission:Observation Start Date: Date of admission: 10/31/22 Discharge date: 11/06/22Admission diagnosis: atrial thrombus afib bradycardia SSSDMHTNCKDparkinson's disease Hx of bleeding Discharge diagnosis: atrial thrombus afib bradycardia SSSDMHTNCKDparkinson's disease Hx of bleeding Hospital course: atrial thrombus afib bradycardia SSSDMHTNCKDparkinson's disease Hx of bleeding atrial thrombus /afib/ bradycardia tele HR -- 40 -- manage as cardiology hematology consult -- usp AC start eliuis now DM-- hold metformin now -- sliding scale HTN -- stop lisinopril-- due to CKD -- hold hydralazine -- monitor BP -- well control now CKD-- nephrology consult DVTP-- on eliquis 11/01- he feel well -- tele -- show HR -- 20--30 at night -- EP consult as cardiology -- BP-- stable -- continue monitor in tele 11/02- he feel well -- EP consult -- no indication for pacemaker now -- thorancentesis -- 1200 cc fluid remove afternoon -- continue monitor in tele -- home if ok with cardiology and pulmon 11/03- his HR-- 39 --47 -- pacemaker placement -- saturday as EP and cardiology 11/04- no complaint -- remain bradycrdiac --pacemaker -- AM he had pacemaker placement . he feel well he is stable to discharge home . he will follow up with cardiology and pcp in 2 weeks Consultants: cardiology, nephrology Free Text DxA P NotesFree text DxA P notes: atrial thrombus afib bradycardia SSSDMHTNCKDparkinson's disease Hx of bleeding atrial thrombus /afib/ bradycardia tele HR -- 40 -- manage as cardiology hematology consult -- [employer] AC start eliuis now DM-- hold metformin now -- sliding scale HTN -- stop lisinopril-- due to CKD -- hold hydralazine -- monitor BP -- well control now CKD-- nephrology consult DVTP-- on eliquis 11/01- he feel well -- tele -- show HR -- 20--30 at night -- EP consult as cardiology -- BP-- stable -- continue monitor in tele 11/02- he feel well -- EP consult -- no indication for pacemaker now -- thorancentesis -- 1200 cc fluid remove afternoon -- continue monitor in tele -- home if ok with cardiology and pulmon 11/03- his HR-- 39 --47 -- pacemaker placement -- saturday as EP and cardiology 11/04- no complaint -- remain bradycrdiac --pacemaker -- AM Med Rec Med RecDischarge meds:Stop taking the following medications:FUROSEMIDE (LASIX) 40 MG TAB 20 MILLIGRAM ORAL DAILY. as needed for EDEMA hydrALAZINE (APRESOLINE) 25 MG TAB 25 MILLIGRAM ORAL THREE TIMES A DAY. LISINOPRIL (ZESTRIL) 40 MG TAB 20 MILLIGRAM ORAL DAILY. AMIODARONE (PACERONE) 200 MG TAB 200 MILLIGRAM ORAL DAILY. Continue taking these medications:ATORVASTATIN (LIPITOR) 40 MG TAB 40 MILLIGRAM ORAL BEDTIME. Comments: TAKES AT [id number] DOXAZOSIN (CARDURA) 2 MG TAB 2 MILLIGRAM ORAL BEDTIME. Comments: TAKES 2011-6886 ASPIRIN (ASPIRIN) 81 MG TAB.CHEW 81 MILLIGRAM ORAL BEDTIME. Dapagliflozin Propanediol (FARXIGA) 5 MG TAB 5 MILLIGRAM ORAL DAILY. GABAPENTIN (NEURONTIN) 300 MG CAP 300 MILLIGRAM ORAL BEDTIME. PRAMIPEXOLE DI-HCL (MIRAPEX) 0.25 MG TAB 0.25 MILLIGRAM ORAL THREE TIMES A DAY. [AREDS N2 EYES] 1 CAPSULE ORAL TWICE DAILY. CARBIDOPA/LEVODOPA (SINEMET 25/100 MG) 25 MG-100 MG TAB 2 TABLET ORAL THREE TIMES A DAY. SODIUM BICARBONATE (SODIUM BICARBONATE) 650 MG TAB 650 MILLIGRAM ORAL TWICE DAILY. UMECLIDINIUM BRM/VILANTEROL TR (ANORO ELLIPTA 62.5-25 MCG INH) 62.5 MCG-25 MCG/ACTUATION INHALER 1 PUFF INHALATION RT - DAILY. [PREVAGEN EXT STRENGT] 1 ORAL DAILY. [BALANCE FRUIT] 3 TABLET ORAL DAILY. [BALANCE VEGGIES] 3 TABLET ORAL DAILY. [MINERALS IMMUNO 150] 3 TABLET ORAL DAILY. UBIDECARENONE (CO Q-10) (Unknown Strength) CAP Unknown Dose ORAL DAILY. DOCUSATE SODIUM (COLACE) 100 MG CAP 100 MILLIGRAM ORAL DAILY. Start taking the following new medications:DOXYCYCLINE MONOHYDRATE (MONODOX) 100 MG CAP 100 MILLIGRAM ORAL EVERY 12 HOURS. Qty = 8 No Refills FUROSEMIDE (LASIX) 40 MG TAB 40 MILLIGRAM ORAL DAILY. Qty = 30 No Refills APIXABAN (ELIQUIS) 5 MG TAB 5 MILLIGRAM ORAL TWICE DAILY. Qty = 60 No Refills METOPROLOL TARTRATE (LOPRESSOR) 25 MG TAB 25 MILLIGRAM ORAL TWICE DAILY. Qty = 60 No Refills ObjectiveVS/I OLast Documented: Result Date Time Pulse Ox 98 11/06 0750 B/P 165/83 11/06 0750 B/P Mean 110.5 11/06 0750 O2 Delivery Room air 11/06 0750 Temp 36.3 11/06 0750 Pulse 69 11/06 0750 Resp 18 11/06 0750 O2 Flow Rate 2 11/02 2044 24 hour I O ending at 0700: 11/06 0700 11/05 1900 Intake Total Output Total 700 Balance -700 Number Voids 2 Output, Urine 700 General appearance: alert, awake, orientedHead/Eyes: atraumatic, normal conjunctiva/sclera, normal eyelids/periorb., normocephalicNeck: full range of motion, non-tender, no JVDCardiovascular: bradycardic, normal heart soundsRespiratory: aerating well, clear to auscultationAbdomen: non-tender, normal bowel sounds, soft, no distentionExtremities: moves all, no calf tenderness, no edemaNeuro/TUMBLER PLATER: alert, oriented X 3, CNII-XII intact, normal speech, no motor deficits, no sensory deficitsSkin: dry, intact ResultsFindings/Data:Laboratory Tests: 11/06 11/06 11/05 11/05 0811 0540 1859 1636 Chemistry Sodium (134 - 147 mEq/L) 138 Potassium (3.4 - 5.0 mEq/L) 5.0 Chloride (100 - 108 mEq/L) 107 Carbon Dioxide (21 - 33 mEq/l) 26 Anion Gap (0 - 20) 10 BUN (7 - 18 mg/dL) 58 H Creatinine (0.6 - 1.3 mg/dL) 2.5 H Glomerular Filtr Rate (70 - 80) 25.5 L Glucose (70 - 110 mg/dL) 115 H POC Glucose (70 - 110 MG/DL) 101 121 H 122 H Calcium (8.0 - 10.5 mg/dL) 9.2 Phosphorus (2.5 - 4.9 MG/DL) 4.2 Magnesium (1.80 - 2.40 mg/dL) 2.03 Hematology WBC (4.5 - 11.0 x10 3/uL) 6.1 RBC (4.00 - 5.60 x10 6/uL) 3.86 L Hgb (12.5 - 16.9 g/dL) 9.6 L Hct (37.5 - 50.7 %) 31.2 L MCV (81.0 - 99.0 fL) 80.8 L MCH (27.0 - 33.0 pg) 24.9 L MCHC (33.0 - 37.0 g/dL) 30.8 L RDW (11.5 - 14.5 %) 16.3 H Plt Count (150 - 400 x10 3/uL) 166 MPV (7.0 - 9.0 fL) 10.0 H Neut % (Auto) (56.0 - 77.0 %) 71.6 Lymph % (Auto) (14.0 - 32.0 %) 13.3 L [place] % (Auto) (4.8 - 9.0 %) 8.7 Eos % (Auto) (0.3 - 3.7 %) 5.1 H Baso % (Auto) (0.0 - 2.0 %) 0.8 Neut # (Auto) (2.0 - 7.6 x10 3/uL) 4.35 Lymph # (Auto) (1.0 - 3.8 x10 3/uL) 0.81 L [place] # (Auto) (0.1 - 0.8 x10 3/uL) 0.53 Eos # (Auto) (0.0 - 0.2 x10 3/uL) 0.31 H Baso # (Auto) (0.0 - 0.2 x10 3/uL) 0.05 Abs Immat Gran (auto) (0.00 - 0.03 x10 3/uL) 0.03 Add Manual Diff NO Immature Gran % (0.0 - 2.0 %) 0.5 Nucleated RBC % (0 - 0 %) 0.0 Nucleated RBCs # (Man) (0.0 - 0.1 x10 3/uL) 0.00 Discharge Instructions PCPDischarge to: Home/Self CareAdditional Discharge Routines: PCP Follow-Up, Steam Fitter Helper Follow-UpDiet: CardiacActivity: As Tolerated Follow-up AppointmentsPCP follow-up: PCP: Manuel Gandhi MD PCP follow up timeframe: In 1-2 weeks Special instructions:CALL TO SCHEDULE APPOINTMENTAttending Physician: Attending Physician: Kristina Hodge MD Pceiklqtkn provider 1: Provider 1: Mickey Briggs MD Specialty: CardiologyInterventional Consult follow up timeframe: In 2-3 weeks Special instructions:CALL TO SCHEDULE APPOINTMENTConsulting provider 2: Provider 2: Aramis Antunez MD Specialty: CARDIOLOGY ELECTROPHYSIOLOGY Follow up timeframe: In 1-2 weeks Special instructions:CALL TO SCHEDULE APPOINTMENTConsulting provider 3: Provider 3: Sherly Gomes MD Specialty: NEPHROLOGY Follow up timeframe: ADVISED Special instructions:CALL TO SCHEDULE APPOINTMENTConsulting provider 4: Provider 4: Taylor Lowery MD Specialty: PULMONARY Follow up timeframe: IF ADVISED Quality: Discharge Current MedicationsCurrent medication review: Current Medications Sig/Denice Start time Last Medication Dose Route Stop Time Status Admin Docusate Sodium 100 MG DAILY 11/01 0900 AC PO 12/01 0859 Aspirin 81 MG BEDTIME 10/31 2100 AC PO 11/30 205 Atorvastatin Calcium 40 MG BEDTIME 10/31 2100 AC PO 11/30 205 Gabapentin 300 MG BEDTIME 10/31 2100 AC PO 11/30 205 Insulin Human Lispro 0 AC HS 10/31 1630 AC SUBQ 11/30 1629 Carbidopa/Levodopa 2 TAB TID 10/31 1500 AC PO 11/30 1459 Pramipexole 0.25 MG TID 10/31 1500 AC Dihydrochloride PO 11/30 1459 Dextrose/Water 125 ML ASDIR PRN 10/31 1200 CKD IV 11/30 1159 Dextrose/Water 250 ML ASDIR PRN 10/31 1200 CKD IV 11/30 1159 Glucagon 1 MG ASDIR PRN 10/31 1200 AC IM 11/30 1159 Furosemide 0 .STK-MED ONE 10/31 1045 DC .ROUTE Furosemide 0 .STK-MED ONE 10/31 1043 DC .ROUTE Furosemide 60 MG Q8HR 10/31 0945 AC 10/31 IV 10/31 2201 1047 Sodium Chloride 250 ML ASDIR PRN 10/31 0945 AC IV 11/30 0944 Apixaban 2.5 MG BID 10/31 0900 AC PO 11/30 0859 Atropine Sulfate 0.5 MG ASDIR PRN 10/31 0830 AC IV 11/01 0822 Sodium Chloride 500 ML ASDIR PRN 10/31 0830 AC IV 11/01 0822 Vancomycin HCl 0 .STK-MED ONE 10/31 0735 DC 10/31 .ROUTE 0751 Heparin Sodium 0 .STK-MED ONE 10/31 0724 DC .ROUTE Sugammadex Sodium 0 .STK-MED ONE 10/31 0615 DC IV Sodium Chloride 250 ML .STK-MED ONE 10/31 702 DC IV Heparin Sodium 0 .STK-MED ONE 10/31 699 DC .ROUTE Norepinephrine 0 .K-MED ONE 10/31 699 DC Bitartrate IV Propofol 20 ML .STK-MED ONE 10/31 699 DC IV Rocuronium [place] 0 .STK-MED ONE 10/31 699 DC IV Heparin Sodium 0 .STK-MED ONE 10/31 0658 DC 10/31 .ROUTE 0751 Heparin Sodium/ 2,000 ML .STK-MED ONE 10/31 657 DC 10/31 Sodium Chloride IV 0751 Heparin Sodium/ 500 ML .STK-MED ONE 10/31 657 DC 10/31 Sodium Chloride IV 0751 Bupivacaine HCl 0 .K-MED ONE 10/31 0657 DC .ROUTE Acetaminophen 0 .[facility]-MED ONE 10/31 642 DC .ROUTE Gabapentin 0 .[facility]-MED ONE 10/31 642 DC .ROUTE Lidocaine HCl 0 .[facility]-MED ONE 10/31 642 DC .ROUTE Acetaminophen 1,000 MG PREOP ONCALL 10/29 1145 DC PO 11/28 2359 Lactated Ringer's 1,000 ML PREOP ONCALL 10/29 1145 DC IV 11/28 2359 Lidocaine HCl 2 ML PREOP ONCALL 10/29 1145 DC LOCAL 11/28 2359 Lidocaine HCl 2 ML PREOP ONCALL 10/29 1145 DC LOCAL 11/28 2359 Sodium Chloride 500 ML PREOP ONCALL 10/29 1145 DC IV 11/28 2359 Sodium Chloride 500 ML PREOP ONCALL 10/29 1145 DC IV 11/28 2359 Sodium Chloride 1,000 ML PREOP ONCALL 10/29 1145 DC IV 11/28 2359 Sodium Chloride 5 ML ASDIR PRN 10/29 1145 AC IV 11/28 1144 Sodium Chloride 10 ML ASDIR PRN 10/29 1145 AC IV 11/28 1144 Sodium Chloride 250 ML ASDIR PRN 10/29 1145 DC IV 11/28 1144 Home Medications:ATORVASTATIN (LIPITOR) 40 MG PO BEDTIME DOXAZOSIN (CARDURA) 2 MG PO BEDTIME ASPIRIN 81 MG PO BEDTIME Dapagliflozin Propanediol (FARXIGA) 5 MG PO DAILY FUROSEMIDE (LASIX) 20 MG PO DAILY PRN EDEMA hydrALAZINE (APRESOLINE) 25 MG PO TID LISINOPRIL (ZESTRIL) 20 MG PO DAILY GABAPENTIN (NEURONTIN) 300 MG PO BEDTIME PRAMIPEXOLE DI-HCL (MIRAPEX) 0.25 MG PO TID [AREDS N2 EYES] 1 CAP PO BID CARBIDOPA/LEVODOPA (SINEMET 25/100 MG) 2 TAB PO TID SODIUM BICARBONATE 650 MG PO BID UMECLIDINIUM BRM/VILANTEROL TR (ANORO ELLIPTA 62.5-25 MCG INH) 1 PUFF INH RTDAILY AMIODARONE (PACERONE) 200 MG PO DAILY [PREVAGEN EXT STRENGT] 1 PO DAILY [BALANCE FRUIT] 3 TAB PO DAILY [BALANCE VEGGIES] 3 TAB PO DAILY [MINERALS IMMUNO 150] 3 TAB PO DAILY UBIDECARENONE (CO Q-10) (Unknown Dose) PO DAILY DOCUSATE SODIUM (COLACE) 100 MG PO DAILY I attest that the foregoing medication list in the medical record is true, accurate, and complete to the best of my knowledge. at 1039 RPT #:[id number] OF REPORTDSDischarge [id number]:30:00G.[id number] ailable for patient [id number]:39:34 [facility] 2022-11-06 09:18:00 [id number] 17T09:18:00 [facility])Cardiology Progress NoteREPORT#:[id number] REPORT STATUS: SignedDATE:11/06/22 TIME: 917 PATIENT: ROBE RITCHIE UNIT #: [id number]#: [id number] [address] [birth year] AGE: 77 SEX: M ATTEND: Kristina Hodge AUTHOR: Cynthia Silver * ALL edits or amendments must be made on the electronic/computer document * SubjectiveComments:s/p PPM, doing well. Objective GeneralVS/I O:24 hour I O ending at 0700: 11/06 0700 11/05 1900 Intake Total Output Total 700 Balance -700 Number Voids 2 Output, Urine 700 Vital Signs: Date Time Temp Pulse Resp B/P B/P Pulse O2 O2 Flow FiO2 Mean Ox Delivery Rate 11/06 0750 36.3 69 18 165/83 110.5 98 Room air 11/06 0609 36.4 70 16 127/65 85 93 11/06 0541 36.3 70 16 127/78 94.2 95 Nasal cannula 11/05 2338 36.5 69 18 113/64 80.0 95 Room air 11/05 2140 36.4 70 16 127/65 85 93 Room air 11/05 1638 36.7 70 20 132/74 0.0 90 PATIENT WEIGHT: Weight (lb): 212Weight (oz): 3.82Weight (kg): 96.270 Medications:Active Meds + DC'd Last 24 HrsDoxycycline Monohydrate (DOXYCYCLINE MONOHYDRATE) 100 MG Q12HR PO Ferric Sodium Gluconate Complex (FERRLECIT) 125 MG DAILY IV Sodium Chloride (SODIUM CHLORIDE 0.9%) 100 MLFentanyl Citrate (SUBLIMAZE) 0 .STK-MED ONE .ROUTE (DC) Midazolam HCl (VERSED) 0 .STK-MED ONE .ROUTE (DC) Lidocaine/Epinephrine (XYLOCAINE 1% W/EPI (5mcg/mL) MPF) 0 .STK-MED ONE LOCAL (DC) Cefazolin Sodium (KEFZOL OR ANCEF) 0 .STK-MED ONE .ROUTE (DC) Gentamicin Sulfate (GARAMYCIN) 0 .STK-MED ONE .ROUTE (DC) Lidocaine/Epinephrine (XYLOCAINE 1% W/EPI (5mcg/mL) MPF) 0 .STK-MED ONE LOCAL (DC) Sodium Bicarbonate (SODIUM BICARBONATE) 0 .STK-MED ONE IV (DC) Hydrocodone Bitart/Acetaminophen (NORCO 5/325) 2 TAB Q4H PRN PRN PO Calcium Acetate (CALCIUM ACETATE) 667 MG C MEALS PO Ferric Sodium Gluconate Complex (FERRLECIT) 125 MG DAILY IV (DC) Sodium Chloride (SODIUM CHLORIDE 0.9%) 100 MLFurosemide (LASIX) 40 MG BID 9A 5P PO Docusate Sodium (COLACE) 100 MG DAILY PO Aspirin (ASPIRIN) 81 MG BEDTIME PO Atorvastatin Calcium (LIPITOR) 40 MG BEDTIME PO Gabapentin (NEURONTIN) 300 MG BEDTIME PO Insulin Human Lispro (HUMALOG) 0 AC HS SUBQ Carbidopa/Levodopa (SINEMET-25 100) 2 TAB TID PO Pramipexole Dihydrochloride (MIRAPEX) 0.25 MG TID PO Dextrose/Water (DEXTROSE 10% IN WATER) 125 ML ASDIR PRN IV (CKD) Dextrose/Water (DEXTROSE 10% IN WATER) 250 ML ASDIR PRN IV (CKD) Glucagon (GLUCAGON) 1 MG ASDIR PRN IM Sodium Chloride (SODIUM CHLORIDE 0.9%) 250 ML ASDIR PRN IV Physical ExamGeneral appearance: alert, awake, orientedHead/Eyes: atraumaticENT: moist mucosal membranesNeck: non-tender, no JVDCardiovascular: CV assessment: regular rate and rhythm, no murmurRespiratory: decreased breath sounds, no distressAbdomen: soft, non-tenderGenitourinary: no flank pain, no urinary catheterUpper extremity: UE assessment: normal temperatureLower extremity: LE assessment: edemaMusculoskeletal: normal inspectionNeuro/TUMBLER PLATER: alert, oriented X 3, normal speechSkin: dry, some erythema of BLEWound/incision: Location:Left upper chest covered with dressingPsychiatry: normal affect, normal mood ResultsFindings/Data:Laboratory Tests 11/06 11/06 11/05 11/05 0811 0540 1859 1636 Chemistry Sodium (134 - 147 mEq/L) 138 Potassium (3.4 - 5.0 mEq/L) 5.0 Chloride (100 - 108 mEq/L) 107 Carbon Dioxide (21 - 33 mEq/l) 26 Anion Gap (0 - 20) 10 BUN (7 - 18 mg/dL) 58 H Creatinine (0.6 - 1.3 mg/dL) 2.5 H Glomerular Filtr Rate (70 - 80) 25.5 L Glucose (70 - 110 mg/dL) 115 H POC Glucose (70 - 110 MG/DL) 101 121 H 122 H Calcium (8.0 - 10.5 mg/dL) 9.2 Phosphorus (2.5 - 4.9 MG/DL) 4.2 Magnesium (1.80 - 2.40 mg/dL) 2.03 Laboratory Tests 11/06 0811 Hematology WBC (4.5 - 11.0 x10 3/uL) 6.1 RBC (4.00 - 5.60 x10 6/uL) 3.86 L Hgb (12.5 - 16.9 g/dL) 9.6 L Hct (37.5 - 50.7 %) 31.2 L MCV (81.0 - 99.0 fL) 80.8 L MCH (27.0 - 33.0 pg) 24.9 L MCHC (33.0 - 37.0 g/dL) 30.8 L RDW (11.5 - 14.5 %) 16.3 H Plt Count (150 - 400 x10 3/uL) 166 MPV (7.0 - 9.0 fL) 10.0 H Neut % (Auto) (56.0 - 77.0 %) 71.6 Lymph % (Auto) (14.0 - 32.0 %) 13.3 L [place] % (Auto) (4.8 - 9.0 %) 8.7 Eos % (Auto) (0.3 - 3.7 %) 5.1 H Baso % (Auto) (0.0 - 2.0 %) 0.8 Neut # (Auto) (2.0 - 7.6 x10 3/uL) 4.35 Lymph # (Auto) (1.0 - 3.8 x10 3/uL) 0.81 L [place] # (Auto) (0.1 - 0.8 x10 3/uL) 0.53 Eos # (Auto) (0.0 - 0.2 x10 3/uL) 0.31 H Baso # (Auto) (0.0 - 0.2 x10 3/uL) 0.05 Abs Immat Gran (auto) (0.00 - 0.03 x10 3/uL) 0.03 Add Manual Diff NO Immature Gran % (0.0 - 2.0 %) 0.5 Nucleated RBC % (0 - 0 %) 0.0 Nucleated RBCs # (Man) (0.0 - 0.1 x10 3/uL) 0.00 Laboratory Tests 11/06 0811 Chemistry Magnesium (1.80 - 2.40 mg/dL) 2.03 Radiology data:Recent Impressions:RADIOLOGY - XR CHEST 1 V 11/05 6718 Report Impression - Status: SIGNED Entered: 11/05/2022 6413 IMPRESSION: Bilateral multifocal airspace opacities may represent developing pneumonia.Small right pleural effusion.Impression By: [email or web address] - Brady Santizo M.D. Telemetry Interpretation:paced Diagnosis, Assessment PlanProblem List/A P: 1. Atrial fibrillation 2. KRISTI (acute kidney injury) 3. Hx of CABG 4. Diastolic CHF Plan discussed with: patient, nurse Free Text DxA P NotesFree Text DxA P Notes:77 YO male with PMHx of CAD s/p 3V CABG (2014), chronic atrial fibrillation, GI Bleed, hypertension, CKD, and Diastolic CHF. He was on chronic anticoagulation with Xarelto but developed GI bleed. He was admitted today to undergo watchman procedure. However, during the preoperative LETA he was found to have left atrial appendage thrombus so the procedure was halted, also found to have elevated creatinine, and volume overloaded 1. Chronic atrial fibrillation - with SSS s/p PPMWatchman halted due to left atrial thrombus11/05/22: s/p SJ PPMstart metoprolol artrate 25 mg BIDno need for amiodarone since this is chronic afibresume Eliquis 48 post PPM which will be on 11/07/22 2. Left atrial thrombusresume Eliquis tomorrowrepeat Echo in a month to eval LA clot 3. KRISTI on CKDunclear baseline kidney functioncreatinine 3.4->3.0->3.1 ->3.4->3->2.5Nephrology followingOn Lasix 40 mg IV twice daily 4. 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 CAD with prior 3V CABGcontinue ASA, statin, add BB 6. Lower extremity edema d/t fluid overloaddiuresis per nephroLE venous doppler no DVT 7. Hypertensionnormotensivehold ACEI/ARBs d/t AKIstart Metoprolol tartrate 25 mg BID 8. History of GIB bleedhgb 9.2->9->9.4-> 9.1-> 9.3->9.6 9. CXR showed RLL opacity/pleural effusionWBC normal, no feveron PO Lasixs/p rt thoracentesis 1.2 L (11/02)per Pulm Kiley to DC from cardiologyOutpatient follw-up with Dr. Dailey next weekDischarge meds discharged indepth with patient at 1529 at 2339 RPT #:[id number] OF REPORTPRProgress [id number]:18:00G.[id number] able for patient [id number]:30:08 [facility] 2022-11-06 08:23:00 [id number]- 17T08:23:00 [facility] ([facility])EP Progress NoteREPORT#:[id number] REPORT STATUS: SignedDATE:11/06/22 TIME: 822 PATIENT: ROBE RITCHIE UNIT #: [id number]#: [id number] [address] [birth year] AGE: 77 SEX: M ATTEND: Kristina Hodge AUTHOR: Wade Carey EMERGENCY MEDICAL TECHNICIAN BASIC * ALL edits or amendments must be made on the electronic/computer document * Wade Carey 11/06/22 0823:Objective GeneralVS/I OLast Documented: Result Date Time Pulse Ox 98 11/06 0750 B/P 165/83 11/06 0750 B/P Mean 110.5 11/06 0750 O2 Delivery Room air 11/06 0750 Temp 36.3 11/06 0750 Pulse 69 11/06 0750 Resp 18 11/06 0750 O2 Flow Rate 2 11/02 2044 24 hour I O ending at 0700: 11/06 0700 11/05 1900 Intake Total Output Total 700 Balance -700 Number Voids 2 Output, Urine 700 PATIENT WEIGHT: Weight (lb): 212Weight (oz): 3.82Weight (kg): 96.270 Medications:Active Meds + DC'd Last 24 HrsDoxycycline Monohydrate (DOXYCYCLINE MONOHYDRATE) 100 MG Q12HR PO Ferric Sodium Gluconate Complex (FERRLECIT) 125 MG DAILY IV Sodium Chloride (SODIUM CHLORIDE 0.9%) 100 MLFentanyl Citrate (SUBLIMAZE) 0 .STK-MED ONE .ROUTE (DC) Midazolam HCl (VERSED) 0 .STK-MED ONE .ROUTE (DC) Lidocaine/Epinephrine (XYLOCAINE 1% W/EPI (5mcg/mL) MPF) 0 .STK-MED ONE LOCAL (DC) Cefazolin Sodium (KEFZOL OR ANCEF) 0 .STK-MED ONE .ROUTE (DC) Gentamicin Sulfate (GARAMYCIN) 0 .STK-MED ONE .ROUTE (DC) Lidocaine/Epinephrine (XYLOCAINE 1% W/EPI (5mcg/mL) MPF) 0 .STK-MED ONE LOCAL (DC) Sodium Bicarbonate (SODIUM BICARBONATE) 0 .STK-MED ONE IV (DC) Hydrocodone Bitart/Acetaminophen (NORCO 5/325) 2 TAB Q4H PRN PRN PO Calcium Acetate (CALCIUM ACETATE) 667 MG C MEALS PO Ferric Sodium Gluconate Complex (FERRLECIT) 125 MG DAILY IV (DC) Sodium Chloride (SODIUM CHLORIDE 0.9%) 100 MLFurosemide (LASIX) 40 MG BID 9A 5P PO Docusate Sodium (COLACE) 100 MG DAILY PO Aspirin (ASPIRIN) 81 MG BEDTIME PO Atorvastatin Calcium (LIPITOR) 40 MG BEDTIME PO Gabapentin (NEURONTIN) 300 MG BEDTIME PO Insulin Human Lispro (HUMALOG) 0 AC HS SUBQ Carbidopa/Levodopa (SINEMET-25 100) 2 TAB TID PO Pramipexole Dihydrochloride (MIRAPEX) 0.25 MG TID PO Dextrose/Water (DEXTROSE 10% IN WATER) 125 ML ASDIR PRN IV (CKD) Dextrose/Water (DEXTROSE 10% IN WATER) 250 ML ASDIR PRN IV (CKD) Glucagon (GLUCAGON) 1 MG ASDIR PRN IM Sodium Chloride (SODIUM CHLORIDE 0.9%) 250 ML ASDIR PRN IV Physical ExamGeneral appearance: alert, awake, orientedCardiovascular: CV assessment: regular rate and rhythm, no murmurRespiratory: on oxygen, no distressAbdomen: soft, non-tenderExtremities: moves allNeuro/TUMBLER PLATER: alert, oriented X 3Skin: dryWound/incision: Location:PPM site clean, dry; no sign of infectionFindings/Data:Laboratory Tests: 11/06 11/05 11/05 0540 1859 1636 Chemistry POC Glucose (70 - 110 MG/DL) 101 121 H 122 H Recent Impressions:RADIOLOGY - XR CHEST 1 V 11/05 1408 Report Impression - Status: SIGNED Entered: 11/05/2022 1533 IMPRESSION: Bilateral multifocal airspace opacities may represent developing pneumonia.Small right pleural effusion.Impression By: [id number] - Brady Santizo M.D. Diagnosis, Assessment PlanFree Text A P:1. Bradycardia-currently VPaced 70-s/p PPM implantation per ()-monitored overnight-hemodynamically stable-PPM site clean, dry; no sign of infection-device interrogation completed; normal function-CXR: no pneumothorax-L arm sling in place-instructions given for wound care, mobility, driving, and moisture-Rx: minocycline 100mg bid x5 days-no lovenox or heparin [id number] AC eliquis 48hrs post-op-ok to d/c from EP standpoint; outpt f/u, , 2 weeks 2. Afib-s/p aborted attempt for LAAO via WATCHMAN per -s/p [place], [place] thrombus-no AA therapy-AC eliquis 3. CHF-per cardio, LVEF nml Consultants: cardiology, nephrology at 1134 at 2147 RPT #:[id number] OF REPORTPRProgress [id number] able for patient [id number]:06 [facility] 2022-11-06 08:05:00 [id number]:05:00 [facility] ([facility])Nephrology Progress NoteREPORT#:[id number] REPORT STATUS: SignedDATE:11/06/22 TIME: 0805 PATIENT: ROBE RITCHIE JR UNIT #: [id number]#: [id number] ROOM/BED: 4421-1DOB: [birth year] AGE: 77 SEX: M ATTEND: Kristina Hodge MDADM AUTHOR: Sherly Gomes MD * ALL edits or amendments must be made on the electronic/computer document * SubjectiveChief complaint:For watchman deviceHPI:Patient seen and evaluated, discussed with care team, 77-year-old male with history of diabetes mellitus, hypertension, hyperlipidemia, chronic kidney disease followed by patient liaison in [place] who presented for watchman's device placement, however the procedure was aborted due to TTE showing atrial thrombus. His laboratories showed sodium 141, potassium 5, CO2 25, BUN 69, creatinine 3.4, glucose 107, hemoglobin 9.2, platelet 191, blood count 5.7. Patient seen post procedure in the PACU, he feels okay except for shortness of breath. Renal consult was requested for evaluation management of his elevated BUN and creatinine.Patient reports:Yes: complaints. Comments:Patient seen and evaluated, HPI no change from initial, feels okay. Review of SystemsConstitutional:Reports: fatigue. Denies: chills, fever. Skin:Reports: swelling. Denies: rash. Allergy/Immun:Denies: hives, itching. Eyes:Denies: redness, discharge. ENT:Denies: ear drainage, ear ringing. Respiratory:Denies: hemoptysis, SOB. Cardiovascular:Denies: chest pain. Objective GeneralVS/I O:Vital Signs: Date Time Temp Pulse Resp B/P B/P Pulse O2 O2 Flow FiO2 Mean Ox Delivery Rate 11/06 0750 36.3 69 18 165/83 110.5 98 Room air 11/06 0609 36.4 70 16 127/65 85 93 11/06 0541 36.3 70 16 127/78 94.2 95 Nasal cannula 11/05 2338 36.5 69 18 113/64 80.0 95 Room air 11/05 2140 36.4 70 16 127/65 85 93 Room air 11/05 1638 36.7 70 20 132/74 0.0 90 24 hour I O ending at 0700: 11/06 0700 11/05 1900 Intake Total Output Total 700 Balance -700 Number Voids 2 Output, Urine 700 PATIENT WEIGHT: Weight (lb): 212Weight (oz): 3.82Weight (kg): 96.270 MedicationsActive Meds + DC'd Last 24 HrsDoxycycline Monohydrate (DOXYCYCLINE MONOHYDRATE) 100 MG Q12HR PO Ferric Sodium Gluconate Complex (FERRLECIT) 125 MG DAILY IV Sodium Chloride (SODIUM CHLORIDE 0.9%) 100 MLFentanyl Citrate (SUBLIMAZE) 0 .STK-MED ONE .ROUTE (DC) Midazolam HCl (VERSED) 0 .STK-MED ONE .ROUTE (DC) Lidocaine/Epinephrine (XYLOCAINE 1% W/EPI (5mcg/mL) MPF) 0 .STK-MED ONE LOCAL (DC) Cefazolin Sodium (KEFZOL OR ANCEF) 0 .STK-MED ONE .ROUTE (DC) Gentamicin Sulfate (GARAMYCIN) 0 .STK-MED ONE .ROUTE (DC) Lidocaine/Epinephrine (XYLOCAINE 1% W/EPI (5mcg/mL) MPF) 0 .STK-MED ONE LOCAL (DC) Sodium Bicarbonate (SODIUM BICARBONATE) 0 .STK-MED ONE IV (DC) Hydrocodone Bitart/Acetaminophen (NORCO 5/325) 2 TAB Q4H PRN PRN PO Calcium Acetate (CALCIUM ACETATE) 667 MG C MEALS PO Ferric Sodium Gluconate Complex (FERRLECIT) 125 MG DAILY IV (DC) Sodium Chloride (SODIUM CHLORIDE 0.9%) 100 MLFurosemide (LASIX) 40 MG BID 9A 5P PO Docusate Sodium (COLACE) 100 MG DAILY PO Aspirin (ASPIRIN) 81 MG BEDTIME PO Atorvastatin Calcium (LIPITOR) 40 MG BEDTIME PO Gabapentin (NEURONTIN) 300 MG BEDTIME PO Insulin Human Lispro (HUMALOG) 0 AC HS SUBQ Carbidopa/Levodopa (SINEMET-25 100) 2 TAB TID PO Pramipexole Dihydrochloride (MIRAPEX) 0.25 MG TID PO Dextrose/Water (DEXTROSE 10% IN WATER) 125 ML ASDIR PRN IV (CKD) Dextrose/Water (DEXTROSE 10% IN WATER) 250 ML ASDIR PRN IV (CKD) Glucagon (GLUCAGON) 1 MG ASDIR PRN IM Sodium Chloride (SODIUM CHLORIDE 0.9%) 250 ML ASDIR PRN IV Physical ExamGeneral appearance: alert, no acute distressHead/eyes: atraumatic, normocephalicENT: normal noseNeck: non-tender, supple/no meningismusCardiovascular: normal heart sounds, no rubRespiratory: aerating well, symmetric expansionAbdomen: non-tender, softGenitourinary: no flank pain, no urinary catheterExtremities: pitting edema, non-tenderMusculoskeletal: no CVA tenderness, no tendernessNeuro/TUMBLER PLATER: alert, normal speechSkin: dry, intact ResultsFindings/Data:Laboratory Tests 11/06 11/05 11/05 11/05 11/05 0540 1859 1636 0558 0510 Chemistry Sodium (134 - 147 mEq/L) 137 Potassium (3.4 - 5.0 mEq/L) 5.0 Chloride (100 - 108 mEq/L) 104 Carbon Dioxide (21 - 33 mEq/l) 23 Anion Gap (0 - 20) 15 BUN (7 - 18 mg/dL) 77 H Creatinine (0.6 - 1.3 mg/dL) 3.0 H Glomerular Filtr Rate (70 - 80) 20.5 L Glucose (70 - 110 mg/dL) 120 H POC Glucose (70 - 110 MG/DL) 101 121 H 122 H 118 H Calcium (8.0 - 10.5 mg/dL) 9.5 Phosphorus (2.5 - 4.9 MG/DL) 5.1 H Magnesium (1.80 - 2.40 mg/dL) 2.11 11/04 1653 1238 0804 0450 Chemistry Sodium (134 - 147 mEq/L) 136 Potassium (3.4 - 5.0 mEq/L) 5.1 H Chloride (100 - 108 mEq/L) 104 Carbon Dioxide (21 - 33 mEq/l) 21 Anion Gap (0 - 20) 16 BUN (7 - 18 mg/dL) 63 H Creatinine (0.6 - 1.3 mg/dL) 3.1 H Glomerular Filtr Rate (70 - 80) 19.7 L Glucose (70 - 110 mg/dL) 138 H POC Glucose (70 - 110 MG/DL) 126 H 157 H 131 H 106 Calcium (8.0 - 10.5 mg/dL) 8.7 Phosphorus (2.5 - 4.9 MG/DL) 5.5 H Magnesium (1.80 - 2.40 mg/dL) 2.07 11/03 11/03 1656 1225 Chemistry POC Glucose (70 - 110 MG/DL) 129 H 156 H Laboratory Tests 11/05 0510 Coagulation PTT (Nestor) (25.0 - 39.5 Seconds) 37.5 Laboratory Tests 11/05 11/04 0510 0450 Hematology WBC (4.5 - 11.0 x10 3/uL) 9.4 4.7 RBC (4.00 - 5.60 x10 6/uL) 3.98 L 3.75 L Hgb (12.5 - 16.9 g/dL) 10.0 L 9.3 L Hct (37.5 - 50.7 %) 32.1 L 30.9 L MCV (81.0 - 99.0 fL) 80.7 L 82.4 MCH (27.0 - 33.0 pg) 25.1 L 24.8 L MCHC (33.0 - 37.0 g/dL) 31.2 L 30.1 L RDW (11.5 - 14.5 %) 16.2 H 16.1 H Plt Count (150 - 400 x10 3/uL) 197 174 MPV (7.0 - 9.0 fL) 11.6 H 11.6 H Neut % (Auto) (56.0 - 77.0 %) 75.8 65.4 Lymph % (Auto) (14.0 - 32.0 %) 12.0 L 16.3 [place] % (Auto) (4.8 - 9.0 %) 7.4 8.6 Eos % (Auto) (0.3 - 3.7 %) 3.9 H 8.2 H Baso % (Auto) (0.0 - 2.0 %) 0.6 1.1 Neut # (Auto) (2.0 - 7.6 x10 3/uL) 7.12 3.05 Lymph # (Auto) (1.0 - 3.8 x10 3/uL) 1.13 0.76 L [place] # (Auto) (0.1 - 0.8 x10 3/uL) 0.70 0.40 Eos # (Auto) (0.0 - 0.2 x10 3/uL) 0.37 H 0.38 H Baso # (Auto) (0.0 - 0.2 x10 3/uL) 0.06 0.05 Abs Immat Gran (auto) (0.00 - 0.03 x10 3/uL) 0.03 0.02 Add Manual Diff NO NO Immature Gran % (0.0 - 2.0 %) 0.3 0.4 Nucleated RBC % (0 - 0 %) 0.0 0.0 Nucleated RBCs # (Man) (0.0 - 0.1 x10 3/uL) 0.00 0.00 Laboratory Tests 11/05 0720 Serology SARS-CoV-2 Ag (Rapid) (Negative) Negative Microbiology Date/Time Procedure - Status Source Growth 11/03 2134 Occult Blood - COMP STOOL Recent Impressions:RADIOLOGY - XR CHEST 1 V 11/05 1408 Report Impression - Status: SIGNED Entered: 11/05/2022 1533 IMPRESSION: Bilateral multifocal airspace opacities may represent developing pneumonia.Small right pleural effusion.Impression By: [email or web address] - Brady Santizo M.D. Laboratory Tests 11/06 11/05 11/05 0540 1859 1636 Chemistry POC Glucose (70 - 110 MG/DL) 101 121 H 122 H Diagnosis, Assessment PlanFree Text A P:Patient seen and evaluated, discussed with care team, images and laboratories reviewed.History of hypertension: On doxazosin/hydralazine and lisinopril: We will hold lisinopril: Multiple pressure closely and adjust medications as neededHistory of diabetes mellitus: On Farxiga at, will DC due to low GFR.History of hyperlipidemiaHistory of A. 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 Sodium 139, potassium 5, CO2 24, BUN 63, creatinine 3 down from 3.4 improving, hemoglobin 9,platelet 179, blood count 5. laboratory this morning showed hemoglobin 9.4, platelet 181, blood count 5.1, sodium 138, potassium 4.9, CO2 25, BUN 68, creatinine 3.1 relatively stable, will give 3 more doses of IV Lasix 40 mg every 8 hours, iron saturation 6.3%, ferritin 34, will give Ferrlecit 125 mg IV daily for 8 doses11/03/2022 laboratory this morning showed sodium 137, potassium 5.1, CO2 24, BUN 70, creatinine 3.4 up from 3.1, phosphorus 6.1 we will start PhosLo 1 p.o. with each meal, hemoglobin 9.1, platelet 147, blood count 4.5, will start Lasix 40 mgp.o. twice daily, will check fecal occult blood since patient had low iron stores11/04/2022 laboratory this morning showed sodium 136, potassium 5.1, CO2 21, BUN 63 down from 70, creatinine 3.1 down from 3.4 better, phosphorus 5.5 was startedon PhosLo yesterday, hemoglobin 9.3, platelet 174, blood count 4.7, continue Lasix 40 mg p.o. twice daily11/05/2022 laboratory this morning showed sodium 137, potassium 5, CO2 23, BUN 77, creatinine 3 down from 3.1, hemoglobin 10, platelet 177, blood count 9.4, output reported 1700 cc.11/06/2022 weight down to 96 kg, laboratory this morning showed sodium 138, potassium 5, CO2 26, BUN 58, creatinine 2.5 down from 3 continues to improve, hemoglobin 9.6, platelet 166, blood count 6.1Consultants: cardiology, nephrology at [address] [facility] #:[id number] OF REPORTPRProgress [id number]:05:[id number] able for patient [id number]:02:49 [facility] 2022-11-05 16:16:00 [id number] 16T16:16:00 [facility] ([facility])DT Operative NoteREPORT#:[id number] REPORT STATUS: SignedDATE:11/05/22 TIME: 1616 PATIENT: ROBE RITCHIE UNIT #: [id number]#: [id number] [address] [birth year] AGE: 77 SEX: M ATTEND: Kristina Hodge AUTHOR: Aramis Antunez MD * ALL edits or amendments must be made on the electronic/computer document * Operative Report Operative NoteNote:Permanent pacemaker implantation procedure note Procedure Date: 11/05/2022 Operators: Aramis Antunez MD. Referring: Dr. Mickey Conner MD. Pre-Op Diagnosis: Irreversible symptomatic bradycardia, atrial fibrillation with slow ventricular response. Post-Op Diagnosis: Same. Procedure: 1. Implantation of dual-chamber pacemaker.2. Left arm venogram. Procedure Summary/Findings: The risks, benefits, alternatives of the device implant with sedation were explained before the procedure. Risks explained include cardiac tamponade, pneumothorax, bleeding, infection, vascular injury, MA, CVA, emergent sternotomy, intubation, . Written informed consent was obtained. The patient was reassessed prior to the procedure, including airway, physical status vitals. The patient was deemed appropriate to proceed with moderate conscious sedation. IV antibiotics were given at the beginning of the procedure as standard protocol. Moderate conscious sedation was provided under my direct supervision by an independent sedation-trained nurse who monitored the patient vitals throughoutthe procedure. About 45 minutes were spent directly supervising monitoring the patient receiving sedation. A total of 1 mg of IV Versed 50 mcg of IV Fentanyl was used for sedation. See nurse s sedation sheet that I signed for further details. The patient tolerated the sedation well. After applying standard sterile precautions, local anesthetic with 2% lidocaine with epinephrine was administered to the prepectoral region. A left sided venogram showed patency from the axillary vein to the heart. The skin was incised 4 cm dissected to fascia. A pocket was created over the pectoralis muscle using blunt dissection. Hemostasis was obtained with electrocautery. Percutaneous left sided axillary venous access was obtained via the modified Seldinger technique with micropuncture technique under fluoroscopic guidance leon wire was advanced to the inferior vena cava. An additional axillary venipuncture was performed in a similar manner and another wire was advanced to the inferior vena cava. A hemostatic peel-away sheath was inserted over one of the wires and a 7F ventricular lead was advanced. Using a slightly curved stylet, this lead was passively fixed to the right ventricular apical septum after seeing great injury confirming adequate numbers on interrogation. THAI showed septal position of the lead. Next a hemostatic peel-away sheath was advanced over the remaining wire and a 6F atrial lead was advanced. Using a J stylet, this lead was actively fixed to the right atrial appendage after seeing great injury confirming adequate numbers on interrogation. Pacing at 10V did not cause any chest wall or diaphragmatic stimulation. Optimal lead slack was confirmed. Theleads were secured to the muscle with Ethibond. The pocket was irrigated thoroughly with antibiotic solution and hemostasis was confirmed. A new generator was brought onto the field and connected to the leads. The generator and leads were introduced into the pocket. The generator was tied to the muscle with silk. In 3-layer standard fashion, the pocket was sutured with Vicryl to provide adequate closure. The wound was dressed with gauze surgical tape. Pressure dressing was applied. At the conclusion of the procedure, fluoroscopy revealed good lead position withno pneumothorax or retained sponges, and a normal heart border on THAI view. Thepatient tolerated the procedure well and was returned to a telemetry bed in stable condition. Device:St Mani Model [id number], Serial # [id number]: Model 2088TC/46, Serial # [id number]: Model 1948/52, Serial # [id number]. P wave: 1.4 mV A.fibRA pacing impedance: 460 ohmsRA threshold: A fib R wave: 7.4 mVRV pacing impedance: 460 ohmsRV threshold: 0.5 V @ 0.4 ms Settings: DDD 60/120 Estimated Blood Loss: Minimal Blood Administered: None Grafts or Implants: Device as above Any Specimen Removed: None Complications: None Anesthesia: Moderate conscious sedation Medications: Versed, Fentanyl, Ancef Conclusion: 1. Successful implantation of a dual-chamber pacemaker2. No apparent immediate complications Post-Procedure Plan:1. _Observe patient overnight as outpatient with extended recovery.2. Bedrest for 6 hours.3. Resume cardiac diet.4. EKG after procedure.5. Portable CXR now 2-view CXR tomorrow morning if possible.6. Device interrogation tomorrow morning.7. Hold anticoagulants x 48 hours.8. Pain control: Tylenol Tylenol #3 as needed.9. Antibiotics: Minocycline 100mg BID x7 days.10. Follow-up in 2 weeks in [facility]. Device/Wound Care Instructions:1. Keep wound completely dry for at least 1 week.2. Not to elevate device-side arm past horizontal for at least 2 weeks.3. Use sling for at least 2 weeks.4. No lifting over 10 lbs with device arm for 2 weeks.5. Remove dressings the day after procedure. Can re-apply fresh dressing as needed.6. Do not remove Steri-strips or glue. They will come off by itself.7. No driving until follow-up. at 1619 RPT #:[id number] OF REPORTOPOperative [id number]:16:00G.[id number] ilable for patient [id number]:20:19 [facility] 2022-11-05 14:59:00 [id number] 16T14:59:00 [facility] ([facility])Pulmonology Progress NoteREPORT#:[id number] REPORT STATUS: SignedDATE:11/05/22 TIME: 1459 PATIENT: ROBE RITCHIE UNIT #: [id number]#: [id number] [address]: [birth year] AGE: 77 SEX: M ATTEND: Kristina Hodge AUTHOR: Ricky Lassiter MD * ALL edits or amendments must be made on the electronic/computer document * SubjectiveChief complaint:No acute events overnightThis morning had pacemaker placementDoing well postprocedure on room air Review of Systems ROSConstitutional:Denies: fatigue, fever, lethargy. Respiratory:Denies: hemoptysis, pleuritic pain, pneumonia. Cardiovascular:Denies: GONZALEZ (dyspnea on exertion), palpitations, parox nocturnal dyspnea. GI:Denies: anorexia, diarrhea, hematochezia. Heme:Denies: adenopathy, bleeding, bruising, petechiae, other. Objective GeneralVS/I O:Last Documented: Result Date Time Pulse Ox 98 11/05 719 B/P 133/52 11/05 719 B/P Mean 78.9 11/05 719 Temp 36.6 11/05 719 Pulse 44 11/05 719 Resp 20 11/05 719 O2 Delivery Room air 11/05 06 O2 Flow Rate 2 11/02 2044 24 hour I O ending at 0700: 11/05 0700 11/04 1900 Intake Total 100.00 Output Total 1700 Balance -1700 100.00 Intake, IV 100.00 Output, Urine 1700 PATIENT WEIGHT: Weight (lb): 220Weight (oz): 7.4Weight (kg): 100.000 Medications:Active Meds + DC'd Last 24 HrsFerric Sodium Gluconate Complex (FERRLECIT) 125 MG DAILY IV Sodium Chloride (SODIUM CHLORIDE 0.9%) 100 MLFentanyl Citrate (SUBLIMAZE) 0 .STK-MED ONE .ROUTE (DC) Midazolam HCl (VERSED) 0 .STK-MED ONE .ROUTE (DC) Lidocaine/Epinephrine (XYLOCAINE 1% W/EPI (5mcg/mL) MPF) 0 .STK-MED ONE LOCAL (DC) Cefazolin Sodium (KEFZOL OR ANCEF) 0 .STK-MED ONE .ROUTE (DC) Gentamicin Sulfate (GARAMYCIN) 0 .STK-MED ONE .ROUTE (DC) Lidocaine/Epinephrine (XYLOCAINE 1% W/EPI (5mcg/mL) MPF) 0 .STK-MED ONE LOCAL (DC) Sodium Bicarbonate (SODIUM BICARBONATE) 0 .STK-MED ONE IV (DC) Hydrocodone Bitart/Acetaminophen (NORCO 5/325) 2 TAB Q4H PRN PRN PO Calcium Acetate (CALCIUM ACETATE) 667 MG C MEALS PO Ferric Sodium Gluconate Complex (FERRLECIT) 125 MG DAILY IV (DC) Sodium Chloride (SODIUM CHLORIDE 0.9%) 100 MLFurosemide (LASIX) 40 MG BID 9A 5P PO Docusate Sodium (COLACE) 100 MG DAILY PO Aspirin (ASPIRIN) 81 MG BEDTIME PO Atorvastatin Calcium (LIPITOR) 40 MG BEDTIME PO Gabapentin (NEURONTIN) 300 MG BEDTIME PO Insulin Human Lispro (HUMALOG) 0 AC HS SUBQ Carbidopa/Levodopa (SINEMET-25 100) 2 TAB TID PO Pramipexole Dihydrochloride (MIRAPEX) 0.25 MG TID PO Dextrose/Water (DEXTROSE 10% IN WATER) 125 ML ASDIR PRN IV (CKD) Dextrose/Water (DEXTROSE 10% IN WATER) 250 ML ASDIR PRN IV (CKD) Glucagon (GLUCAGON) 1 MG ASDIR PRN IM Sodium Chloride (SODIUM CHLORIDE 0.9%) 250 ML ASDIR PRN IV Physical ExamGeneral appearance: alert, awake, oriented, no acute distress, pleasant, conversational, mental status normal, no respiratory distressHead/eyes: atraumatic, normocephalic, PERRL, PERRLANeck: full range of motion, non-tenderCardiovascular: normal heart sounds, normal S1/S2, regular rate rhythm, no murmur, no rub, no gallopRespiratory/chest: aerating well, clear to auscultation, symmetric expansion, nodistress, no tendernessAbdomen: soft, non-tender, no distention, no guardingExtremities: no cyanosis, no edema, no peripheral edemaMusculoskeletal: no muscle spasmNeuro/TUMBLER PLATER: alert ResultsFindings/Data:Laboratory Tests 11/05/22 0510:[Embedded Image Not Available]Laboratory Tests 11/05 11/05 11/05 11/05 7219 1636 0558 0510 Chemistry Sodium (134 - 147 mEq/L) 137 Potassium (3.4 - 5.0 mEq/L) 5.0 Chloride (100 - 108 mEq/L) 104 Carbon Dioxide (21 - 33 mEq/l) 23 Anion Gap (0 - 20) 15 BUN (7 - 18 mg/dL) 77 H Creatinine (0.6 - 1.3 mg/dL) 3.0 H Glomerular Filtr Rate (70 - 80) 20.5 L Glucose (70 - 110 mg/dL) 120 H POC Glucose (70 - 110 MG/DL) 121 H 122 H 118 H Calcium (8.0 - 10.5 mg/dL) 9.5 Phosphorus (2.5 - 4.9 MG/DL) 5.1 H Magnesium (1.80 - 2.40 mg/dL) 2.11 Laboratory Tests 11/05 0510 Coagulation PTT ([place]) (25.0 - 39.5 Seconds) 37.5 Laboratory Tests 11/05 0510 Hematology WBC (4.5 - 11.0 x10 3/uL) 9.4 RBC (4.00 - 5.60 x10 6/uL) 3.98 L Hgb (12.5 - 16.9 g/dL) 10.0 L Hct (37.5 - 50.7 %) 32.1 L MCV (81.0 - 99.0 fL) 80.7 L MCH (27.0 - 33.0 pg) 25.1 L MCHC (33.0 - 37.0 g/dL) 31.2 L RDW (11.5 - 14.5 %) 16.2 H Plt Count (150 - 400 x10 3/uL) 197 MPV (7.0 - 9.0 fL) 11.6 H Neut % (Auto) (56.0 - 77.0 %) 75.8 Lymph % (Auto) (14.0 - 32.0 %) 12.0 L [place] % (Auto) (4.8 - 9.0 %) 7.4 Eos % (Auto) (0.3 - 3.7 %) 3.9 H Baso % (Auto) (0.0 - 2.0 %) 0.6 Neut # (Auto) (2.0 - 7.6 x10 3/uL) 7.12 Lymph # (Auto) (1.0 - 3.8 x10 3/uL) 1.13 [place] # (Auto) (0.1 - 0.8 x10 3/uL) 0.70 Eos # (Auto) (0.0 - 0.2 x10 3/uL) 0.37 H Baso # (Auto) (0.0 - 0.2 x10 3/uL) 0.06 Abs Immat Gran (auto) (0.00 - 0.03 x10 3/uL) 0.03 Add Manual Diff NO Immature Gran % (0.0 - 2.0 %) 0.3 Nucleated RBC % (0 - 0 %) 0.0 Nucleated RBCs # (Man) (0.0 - 0.1 x10 3/uL) 0.00 Laboratory Tests 11/05 0720 Serology SARS-CoV-2 Ag (Rapid) (Negative) Negative Radiology data:Recent Impressions:RADIOLOGY - XR CHEST 1 V 11/05 1408 Report Impression - Status: SIGNED Entered: 11/05/2022 1533 IMPRESSION: Bilateral multifocal airspace opacities may represent developing pneumonia.Small right pleural effusion.Impression By: [email or web address] Agus Santizo M.D. Diagnosis, Assessment PlanFree Text A P:Impressions:1. Pleural effusion#2 pulmonary edema#3 CHF exacerbation#4 CKD#5 atrial thrombosis#6 history of GI bleed Recommendations:On room air saturating wellStatus post pacemaker placementPostprocedure chest x-ray reviewed no consolidations, mild atelectasisThoracentesis 1.2 L drainedDVT prophylaxisFull code Consultants: cardiology, nephrology at 2033 RPT #:[id number] OF REPORTPRProgress [id number]:59:00G.[id number] able for patient [id number]:34:01 [facility] 2022-11-05 11:42:00 [id number] 16T11:42:00 [facility] ([facility])Juanjose/Oncology Progress NoteREPORT#:[id number] REPORT STATUS: SignedDATE:11/05/22 TIME: 1142 PATIENT: ROBE RITCHIE JR UNIT #: [id number]#: [id number] [place] [facility] [place]: [birth year] AGE: 77 SEX: M ATTEND: Kristina Hodge AUTHOR: Carlos Alberto Barfield MD * ALL edits or amendments must be made on the electronic/computer document * SubjectiveChief Complaint:For PPM placement today- eliquis on hold Objective Physical ExamVS:Vital Signs Date Temp Pulse Resp B/P B/P Mean Pulse Ox FiO2 11/04-11/05 36.3-36.6 38-47 16-20 125-145/50-70 75.0-93.1 94-99 Last Documented: Result Date Time Pulse Ox 98 11/05 0720 B/P 133/52 11/05 0720 B/P Mean 78.9 11/05 0720 Temp 36.6 11/05 0720 Pulse 44 11/05 0720 Resp 20 11/05 07 O2 Delivery Room air 11/05 0600 O2 Flow Rate 2 11/02 2044 General appearance: alert, awake, orientedHEENT: anicteric, atraumaticCardiovascular: bradycardia, irregularly irregularRespiratory: crackles, decreased breath soundsAbdomen: non-tender, normal bowel sounds, softExtremities: pitting edemaNeuro/TUMBLER PLATER: alert, oriented X 3skin dry, intactPsychiatry: normal affect Current MedicationsMedications:Active Meds + DC'd Last 24 HrsHydrocodone Bitart/Acetaminophen (NORCO 5/325) 2 TAB Q4H PRN PRN PO Calcium Acetate (CALCIUM ACETATE) 667 MG C MEALS PO Ferric Sodium Gluconate Complex (FERRLECIT) 125 MG DAILY IV Sodium Chloride (SODIUM CHLORIDE 0.9%) 100 MLFurosemide (LASIX) 40 MG BID 9A 5P PO Docusate Sodium (COLACE) 100 MG DAILY PO Aspirin (ASPIRIN) 81 MG BEDTIME PO Atorvastatin Calcium (LIPITOR) 40 MG BEDTIME PO Gabapentin (NEURONTIN) 300 MG BEDTIME PO Insulin Human Lispro (HUMALOG) 0 AC HS SUBQ Carbidopa/Levodopa (SINEMET-25 100) 2 TAB TID PO Pramipexole Dihydrochloride (MIRAPEX) 0.25 MG TID PO Dextrose/Water (DEXTROSE 10% IN WATER) 125 ML ASDIR PRN IV (CKD) Dextrose/Water (DEXTROSE 10% IN WATER) 250 ML ASDIR PRN IV (CKD) Glucagon (GLUCAGON) 1 MG ASDIR PRN IM Sodium Chloride (SODIUM CHLORIDE 0.9%) 250 ML ASDIR PRN IV ResultsFindings/Data:Laboratory Tests 11/05/22 0510:[Embedded Image Not Available]Laboratory Tests 11/05 11/05 11/04 11/04 11/04 0558 0510 1955 1653 1238 Chemistry Sodium (134 - 147 mEq/L) 137 Potassium (3.4 - 5.0 mEq/L) 5.0 Chloride (100 - 108 mEq/L) 104 Carbon Dioxide (21 - 33 mEq/l) 23 Anion Gap (0 - 20) 15 BUN (7 - 18 mg/dL) 77 H Creatinine (0.6 - 1.3 mg/dL) 3.0 H Glomerular Filtr Rate (70 - 80) 20.5 L Glucose (70 - 110 mg/dL) 120 H POC Glucose (70 - 110 MG/DL) 118 H 126 H 157 H 131 H Calcium (8.0 - 10.5 mg/dL) 9.5 Phosphorus (2.5 - 4.9 MG/DL) 5.1 H Magnesium (1.80 - 2.40 mg/dL) 2.11 Laboratory Tests 11/05 0510 Coagulation PTT ([place]) (25.0 - 39.5 Seconds) 37.5 Laboratory Tests 11/05 0510 Hematology WBC (4.5 - 11.0 x10 3/uL) 9.4 RBC (4.00 - 5.60 x10 6/uL) 3.98 L Hgb (12.5 - 16.9 g/dL) 10.0 L Hct (37.5 - 50.7 %) 32.1 L MCV (81.0 - 99.0 fL) 80.7 L MCH (27.0 - 33.0 pg) 25.1 L MCHC (33.0 - 37.0 g/dL) 31.2 L RDW (11.5 - 14.5 %) 16.2 H Plt Count (150 - 400 x10 3/uL) 197 MPV (7.0 - 9.0 fL) 11.6 H Neut % (Auto) (56.0 - 77.0 %) 75.8 Lymph % (Auto) (14.0 - 32.0 %) 12.0 L [place] % (Auto) (4.8 - 9.0 %) 7.4 Eos % (Auto) (0.3 - 3.7 %) 3.9 H Baso % (Auto) (0.0 - 2.0 %) 0.6 Neut # (Auto) (2.0 - 7.6 x10 3/uL) 7.12 Lymph # (Auto) (1.0 - 3.8 x10 3/uL) 1.13 [place] # (Auto) (0.1 - 0.8 x10 3/uL) 0.70 Eos # (Auto) (0.0 - 0.2 x10 3/uL) 0.37 H Baso # (Auto) (0.0 - 0.2 x10 3/uL) 0.06 Abs Immat Gran (auto) (0.00 - 0.03 x10 3/uL) 0.03 Add Manual Diff NO Immature Gran % (0.0 - 2.0 %) 0.3 Nucleated RBC % (0 - 0 %) 0.0 Nucleated RBCs # (Man) (0.0 - 0.1 x10 3/uL) 0.00 Laboratory Tests 11/05 0720 Serology SARS-CoV-2 Ag (Rapid) (Negative) Negative Diagnosis, Assessment PlanConsultants: cardiology, nephrology Free Text DxA P NotesFree Text DxA P Notes:ASSESSMENT:1. 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 Previous history of anticoagulation with recent GI bleed. Suspectunderlying acute iron deficiency anemia.3. Acute on chronic kidney disease.4. Acute on chronic diastolic congestive heart failure.5. History of coronary artery disease status post coronary artery bypass graft.6. Hypertension. PLAN:-Continue anticoagulation recommendations as per cardiology. Suspect leftatrial thrombus secondary to underlying atrial fibrillation. No necessity forhypercoagulable workup. Currently, started on Eliquis 2.5 mg oral twice dailygiven renal insufficiency- on hold for PPM today-Iron panel with iron deficiency- ferrlecit x 8 ordered- dose 12/26 today- Hb 10-Nephrology consultation appreciated. Creatinine 3 Currently receiving Lasix 40 mg po BID now-Bilateral lower extremity ultrasound to rule out deep vein thrombosis- negative-Pulm consult and f/u appreciated- s/ rt thoracentesis 1200mL removed 11/02-Other medical management as per primary team. Stable from heme end. Carlos Alberto Barfield MD at 1144 RPT #:[id number] OF REPORTPRProgress [id number]:42:[id number] able for patient [id number]:44:53 [facility]L 2022-11-05 08:59:00 [id number]- 16T08:59:00 [facility] ([facility])Cardiology Progress NoteREPORT#:[id number] REPORT STATUS: SignedDATE:11/05/22 TIME: 08 PATIENT: ROBE RITCHIE UNIT #: [id number]#: [id number] [address] [birth year] AGE: 77 SEX: M ATTEND: Kristina Hodge AUTHOR: Cynthia Silver * ALL edits or amendments must be made on the electronic/computer document * SubjectivePatient reports:No: complaints. Objective GeneralVS/I O:24 hour I O ending at 0700: 11/05 0700 11/04 1900 Intake Total 100.00 Output Total 1700 Balance -1700 100.00 Intake, IV 100.00 Output, Urine 1700 Vital Signs: Date Time Temp Pulse Resp B/P B/P Pulse O2 O2 Flow FiO2 Mean Ox Delivery Rate 11/05 0720 36.6 44 20 133/52 78.9 98 11/05 0600 36.6 46 18 125/50 75.0 94 Room air 11/04 2309 36.4 47 16 145/59 87.8 94 Room air 11/04 1956 36.6 44 16 145/67 93.1 94 Room air 11/04 1659 36.5 38 18 140/52 81.1 94 Room air 11/04 1240 36.3 42 18 128/70 89.5 99 Nasal cannula PATIENT WEIGHT: Weight (lb): 220Weight (oz): 7.4Weight (kg): 100.000 Medications:Active Meds + DC'd Last 24 HrsHydrocodone Bitart/Acetaminophen (NORCO 5/325) 2 TAB Q4H PRN PRN PO Calcium Acetate (CALCIUM ACETATE) 667 MG C MEALS PO Ferric Sodium Gluconate Complex (FERRLECIT) 125 MG DAILY IV Sodium Chloride (SODIUM CHLORIDE 0.9%) 100 MLFurosemide (LASIX) 40 MG BID 9A 5P PO Docusate Sodium (COLACE) 100 MG DAILY PO Aspirin (ASPIRIN) 81 MG BEDTIME PO Atorvastatin Calcium (LIPITOR) 40 MG BEDTIME PO Gabapentin (NEURONTIN) 300 MG BEDTIME PO Insulin Human Lispro (HUMALOG) 0 AC HS SUBQ Carbidopa/Levodopa (SINEMET-25 100) 2 TAB TID PO Pramipexole Dihydrochloride (MIRAPEX) 0.25 MG TID PO Dextrose/Water (DEXTROSE 10% IN WATER) 125 ML ASDIR PRN IV (CKD) Dextrose/Water (DEXTROSE 10% IN WATER) 250 ML ASDIR PRN IV (CKD) Glucagon (GLUCAGON) 1 MG ASDIR PRN IM Sodium Chloride (SODIUM CHLORIDE 0.9%) 250 ML ASDIR PRN IV Physical ExamGeneral appearance: alert, awakeHead/Eyes: atraumaticENT: moist mucosal membranesNeck: non-tender, no JVDCardiovascular: CV assessment: bradycardia, irregularly irregular, no murmurRespiratory: decreased breath sounds, no distressAbdomen: soft, non-tenderGenitourinary: no flank pain, no urinary catheterUpper extremity: UE assessment: normal temperatureLower extremity: LE assessment: edemaMusculoskeletal: normal inspectionNeuro/TUMBLER PLATER: alert, oriented X 3, normal speechSkin: dry, some erythema of BLEPsychiatry: normal affect, normal mood ResultsFindings/Data:Laboratory Tests 11/05 11/05 11/04 11/04 11/04 0558 0510 1955 1653 1238 Chemistry Sodium (134 - 147 mEq/L) 137 Potassium (3.4 - 5.0 mEq/L) 5.0 Chloride (100 - 108 mEq/L) 104 Carbon Dioxide (21 - 33 mEq/l) 23 Anion Gap (0 - 20) 15 BUN (7 - 18 mg/dL) 77 H Creatinine (0.6 - 1.3 mg/dL) 3.0 H Glomerular Filtr Rate (70 - 80) 20.5 L Glucose (70 - 110 mg/dL) 120 H POC Glucose (70 - 110 MG/DL) 118 H 126 H 157 H 131 H Calcium (8.0 - 10.5 mg/dL) 9.5 Phosphorus (2.5 - 4.9 MG/DL) 5.1 H Magnesium (1.80 - 2.40 mg/dL) 2.11 Laboratory Tests 11/05 0510 Coagulation PTT ([place]) (25.0 - 39.5 Seconds) 37.5 Laboratory Tests 11/05 0510 Hematology WBC (4.5 - 11.0 x10 3/uL) 9.4 RBC (4.00 - 5.60 x10 6/uL) 3.98 L Hgb (12.5 - 16.9 g/dL) 10.0 L Hct (37.5 - 50.7 %) 32.1 L MCV (81.0 - 99.0 fL) 80.7 L MCH (27.0 - 33.0 pg) 25.1 L MCHC (33.0 - 37.0 g/dL) 31.2 L RDW (11.5 - 14.5 %) 16.2 H Plt Count (150 - 400 x10 3/uL) 197 MPV (7.0 - 9.0 fL) 11.6 H Neut % (Auto) (56.0 - 77.0 %) 75.8 Lymph % (Auto) (14.0 - 32.0 %) 12.0 L [place] % (Auto) (4.8 - 9.0 %) 7.4 Eos % (Auto) (0.3 - 3.7 %) 3.9 H Baso % (Auto) (0.0 - 2.0 %) 0.6 Neut # (Auto) (2.0 - 7.6 x10 3/uL) 7.12 Lymph # (Auto) (1.0 - 3.8 x10 3/uL) 1.13 [place] # (Auto) (0.1 - 0.8 x10 3/uL) 0.70 Eos # (Auto) (0.0 - 0.2 x10 3/uL) 0.37 H Baso # (Auto) (0.0 - 0.2 x10 3/uL) 0.06 Abs Immat Gran (auto) (0.00 - 0.03 x10 3/uL) 0.03 Add Manual Diff NO Immature Gran % (0.0 - 2.0 %) 0.3 Nucleated RBC % (0 - 0 %) 0.0 Nucleated RBCs # (Man) (0.0 - 0.1 x10 3/uL) 0.00 Laboratory Tests 11/05 0720 Serology SARS-CoV-2 Ag (Rapid) (Negative) Negative Laboratory Tests 11/05 0510 Chemistry Magnesium (1.80 - 2.40 mg/dL) 2.11 Radiology data:Recent Impressions:RADIOLOGY - XR CHEST 1 V 11/05 1408 Report Impression - Status: SIGNED Entered: 11/05/2022 1533 IMPRESSION: Bilateral multifocal airspace opacities may represent developing pneumonia.Small right pleural effusion.Impression By: [email or web address] - Brady Santizo M.D. Results: labs reviewed, vital signs reviewed Diagnosis, Assessment Plan Free Text DxA P NotesFree Text DxA P Notes:77 YO male with PMHx of CAD s/p 3V CABG (2014), chronic atrial fibrillation, GI Bleed, hypertension, CKD, and Diastolic CHF. He was on chronic anticoagulation with Xarelto but developed GI bleed. He was admitted today to undergo watchman procedure. However, during the preoperative LETA he was found to have left atrial appendage thrombus so the procedure was halted, also found to have elevated creatinine, and volume overloaded 1. Chronic atrial fibrillation - slow A. fib/AFLT. Per EPS.Watchman halted due to left atrial thrombusHold Eliquis -PPM planned todaynot on BB, CCB or AA d/t bradycardiacontinue telemetry - monitor for sick sinus syndromeRepeat Echo in a month to eval LA clotPPM today 2. Left atrial thrombusEliquis 2.5 mg BID - on hold in prep for Saturday 3. KRISTI on CKDunclear baseline kidney functioncreatinine 3.4->3.0->3.1 ->3.4->3Nephrology followingOn Lasix 40 mg IV twice daily 4. 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 CAD with prior 3V CABGno BB due to bradycardiacontinue ASA and statin 6. Lower extremity edema d/t fluid overloaddiuresis per nephroLE venous doppler no DVT 7. Hypertensionnormotensivemonitor off BP medshold ACEI/ARBs d/t KRISTI, no BB d/t bradycardia 8. History of GIB bleedhgb 9.2->9->9.4-> 9.1-> 9.3 9. CXR showed RLL opacity/pleural effusionWBC normal, no feveron PO Lasixs/p rt thoracentesis 1.2 L (11/02)per Pulm at 1702 at 2338 RPT #:[id number] OF REPORTPRProgress [id number]:59:[id number] able for patient [id number]:02:55 [facility] 2022-11-05 08:55:00 [id number] 16T08:55:00 [facility] ([facility])Clinical NoteREPORT#:[id number] REPORT STATUS: SignedDATE:11/05/22 TIME: 0855 PATIENT: ROBE RITCHIE UNIT #: [id number]#: [id number] [address] [birth year] AGE: 77 SEX: M ATTEND: Kristina Hodge AUTHOR: Dionne Smith APRN * ALL edits or amendments must be made on the electronic/computer document * Clinical NoteNote:Chart reviewed, pt out room for procedure. Will see in AM. Labs in AM. at 0855 RPT #:[id number] OF REPORTCLClinical [id number]:55:00G.[id number] able for patient [id number]:56:09 [facility] 2022-11-05 07:43:00 [id number] 16T07:43:00 [facility] ([facility])Nephrology Progress NoteREPORT#:[id number] REPORT STATUS: SignedDATE:11/05/22 TIME: 0743 PATIENT: ROBE RITCHIE JR UNIT #: [id number]#: [id number] ROOM/BED: 4421[address]1DOB: [birth year] AGE: 77 SEX: M ATTEND: NaveenHerberthhumberto Vila MDADM AUTHOR: Sherly Gomes MD * ALL edits or amendments must be made on the electronic/computer document * SubjectiveChief complaint:For watchman deviceHPI:Patient seen and evaluated, discussed with care team, 77-year-old male with history of diabetes mellitus, hypertension, hyperlipidemia, chronic kidney disease followed by patient liaison in [place] and [place] who presented for watchman's device placement, however the procedure was aborted due to TTE showing atrial thrombus. His laboratories showed sodium 141, potassium 5, CO2 25, BUN 69, creatinine 3.4, glucose 107, hemoglobin 9.2, platelet 191, blood count 5.7. Patient seen post procedure in the PACU, he feels okay except for shortness of breath. Renal consult was requested for evaluation management of his elevated BUN and creatinine.Patient reports:Yes: complaints. Comments:Patient seen and evaluated, HPI no change from initial, feels okay. Review of SystemsConstitutional:Reports: fatigue. Denies: chills, fever. Skin:Denies: abrasion, bruising. Allergy/Immun:Denies: hives, itching. Eyes:Denies: redness, discharge. ENT:Denies: ear drainage, ear ringing. Respiratory:Denies: hemoptysis, SOB. Cardiovascular:Denies: chest pain. Objective GeneralVS/I O:Vital Signs: Date Time Temp Pulse Resp B/P B/P Pulse O2 O2 Flow FiO2 Mean Ox Delivery Rate 11/05 0720 36.6 44 20 133/52 78.9 98 11/05 0600 36.6 46 18 125/50 75.0 94 Room air 11/04 2309 36.4 47 16 145/59 87.8 94 Room air 11/04 1956 36.6 44 16 145/67 93.1 94 Room air 11/04 1659 36.5 38 18 140/52 81.1 94 Room air 11/04 1240 36.3 42 18 128/70 89.5 99 Nasal cannula 11/04 0808 36.3 37 18 135/48 77.0 93 Room air 24 hour I O ending at 0700: 11/05 0700 11/04 1900 Intake Total 100.00 Output Total 1700 Balance -1700 100.00 Intake, IV 100.00 Output, Urine 1700 PATIENT WEIGHT: Weight (lb): 220Weight (oz): 7.4Weight (kg): 100.000 MedicationsActive Meds + DC'd Last 24 HrsHydrocodone Bitart/Acetaminophen (NORCO 5/325) 2 TAB Q4H PRN PRN PO Calcium Acetate (CALCIUM ACETATE) 667 MG C MEALS PO Ferric Sodium Gluconate Complex (FERRLECIT) 125 MG DAILY IV Sodium Chloride (SODIUM CHLORIDE 0.9%) 100 MLFurosemide (LASIX) 40 MG BID 9A 5P PO Docusate Sodium (COLACE) 100 MG DAILY PO Aspirin (ASPIRIN) 81 MG BEDTIME PO Atorvastatin Calcium (LIPITOR) 40 MG BEDTIME PO Gabapentin (NEURONTIN) 300 MG BEDTIME PO Insulin Human Lispro (HUMALOG) 0 AC HS SUBQ Carbidopa/Levodopa (SINEMET-25 100) 2 TAB TID PO Pramipexole Dihydrochloride (MIRAPEX) 0.25 MG TID PO Dextrose/Water (DEXTROSE 10% IN WATER) 125 ML ASDIR PRN IV (CKD) Dextrose/Water (DEXTROSE 10% IN WATER) 250 ML ASDIR PRN IV (CKD) Glucagon (GLUCAGON) 1 MG ASDIR PRN IM Sodium Chloride (SODIUM CHLORIDE 0.9%) 250 ML ASDIR PRN IV Physical ExamGeneral appearance: alert, no acute distressHead/eyes: atraumatic, normocephalicENT: normal noseNeck: non-tender, supple/no meningismusCardiovascular: normal heart sounds, no rubRespiratory: aerating well, symmetric expansionAbdomen: non-tender, softGenitourinary: no flank pain, no urinary catheterExtremities: pitting edema, non-tenderMusculoskeletal: no CVA tenderness, no tendernessNeuro/TUMBLER PLATER: alert, normal speechSkin: dry, intact ResultsFindings/Data:Laboratory Tests 11/05 11/04 11/04 11/04 11/04 0558 1955 1653 1238 0804 Chemistry POC Glucose (70 - 110 MG/DL) 118 H 126 H 157 H 131 H 106 11/04 11/03 11/03 11/03 11/03 0450 1656 1225 0505 0500 Chemistry Sodium (134 - 147 mEq/L) 136 137 Potassium (3.4 - 5.0 mEq/L) 5.1 H 5.1 H Chloride (100 - 108 mEq/L) 104 103 Carbon Dioxide (21 - 33 mEq/l) 21 24 Anion Gap (0 - 20) 16 15 BUN (7 - 18 mg/dL) 63 H 70 H Creatinine (0.6 - 1.3 mg/dL) 3.1 H 3.4 H Glomerular Filtr Rate (70 - 80) 19.7 L 17.6 L Glucose (70 - 110 mg/dL) 138 H 149 H POC Glucose (70 - 110 MG/DL) 129 H 156 H 150 H Calcium (8.0 - 10.5 mg/dL) 8.7 9.1 Phosphorus (2.5 - 4.9 MG/DL) 5.5 H 6.1 H Magnesium (1.80 - 2.40 mg/dL) 2.07 2.10 11/021 1735 1111 0803 0803 Chemistry Sodium (134 - 147 mEq/L) 138 Potassium (3.4 - 5.0 mEq/L) 4.9 Chloride (100 - 108 mEq/L) 104 Carbon Dioxide (21 - 33 mEq/l) 25 Anion Gap (0 - 20) 14 BUN (7 - 18 mg/dL) 68 H Creatinine (0.6 - 1.3 mg/dL) 3.1 H Glomerular Filtr Rate (70 - 80) 19.7 L Glucose (70 - 110 mg/dL) 119 H POC Glucose (70 - 110 MG/DL) 158 H 179 H 166 H Calcium (8.0 - 10.5 mg/dL) 9.7 Phosphorus (2.5 - 4.9 MG/DL) 4.8 Magnesium (1.80 - 2.40 mg/dL) 2.03 Iron (35 - 150 mcg/dL) 24 L TIBC (260 - 445 mcg/dL) 378 % Saturation (14 - 34 %) 6.3 L Unsat Iron Binding (mcg/dL) 354 Ferritin (23.9 - 336.2 ng/mL) 34.5 Laboratory Tests 11/05 0510 Coagulation PTT (Nestor) (25.0 - 39.5 Seconds) 37.5 Laboratory Tests 11/05 11/04 11/03 11/02 0510 0450 0505 0803 Hematology WBC (4.5 - 11.0 x10 3/uL) 9.4 4.7 4.5 5.1 RBC (4.00 - 5.60 x10 6/uL) 3.98 L 3.75 L 3.68 L 3.80 L Hgb (12.5 - 16.9 g/dL) 10.0 L 9.3 L 9.1 L 9.4 L Hct (37.5 - 50.7 %) 32.1 L 30.9 L 30.0 L 30.7 L MCV (81.0 - 99.0 fL) 80.7 L 82.4 81.5 80.8 L MCH (27.0 - 33.0 pg) 25.1 L 24.8 L 24.7 L 24.7 L MCHC (33.0 - 37.0 g/dL) 31.2 L 30.1 L 30.3 L 30.6 L RDW (11.5 - 14.5 %) 16.2 H 16.1 H 15.9 H 16.1 H Plt Count (150 - 400 x10 3/uL) 197 174 147 L 181 MPV (7.0 - 9.0 fL) 11.6 H 11.6 H 10.5 H 10.7 H Neut % (Auto) (56.0 - 77.0 %) 75.8 65.4 62.6 65.2 Lymph % (Auto) (14.0 - 32.0 %) 12.0 L 16.3 19.8 17.8 [place] % (Auto) (4.8 - 9.0 %) 7.4 8.6 10.4 H 9.5 H Eos % (Auto) (0.3 - 3.7 %) 3.9 H 8.2 H 5.9 H 6.3 H Baso % (Auto) (0.0 - 2.0 %) 0.6 1.1 1.1 1.0 Neut # (Auto) (2.0 - 7.6 x10 3/uL) 7.12 3.05 2.84 3.29 Lymph # (Auto) (1.0 - 3.8 x10 3/uL) 1.13 0.76 L 0.90 L 0.90 L [place] # (Auto) (0.1 - 0.8 x10 3/uL) 0.70 0.40 0.47 0.48 Eos # (Auto) (0.0 - 0.2 x10 3/uL) 0.37 H 0.38 H 0.27 H 0.32 H Baso # (Auto) (0.0 - 0.2 x10 3/uL) 0.06 0.05 0.05 0.05 Abs Immat Gran (auto) (0.00 - 0.03 x10 3/uL) 0.03 0.02 0.01 0.01 Add Manual Diff NO NO NO NO Immature Gran % (0.0 - 2.0 %) 0.3 0.4 0.2 0.2 Nucleated RBC % (0 - 0 %) 0.0 0.0 0.0 0.0 Nucleated RBCs # (Man) (0.0 - 0.1 x10 3/uL) 0.00 0.00 0.00 0.00 Laboratory Tests 11/02 1345 Other Body Source Pleural Color YELLOW Pleural Appearance CLEAR Pleural RBC (0 - 0 Cells/uL) < 2000 H Pleural Tot WBC Counted (0 - 500 cells/uL) 221 Pleural Mesothelial RARE Pleural Polynuclear % (%) 38 Pleural Lymphocytes % (%) 31 Pleural Monocytes % (%) 26 Pleural Macrophages % (%) 5 Microbiology Date/Time Procedure - Status Source Growth 11/03 2134 Occult Blood - COMP STOOL Laboratory Tests 11/05 11/04 11/04 11/04 11/04 0558 1955 1653 1238 0804 Chemistry POC Glucose (70 - 110 MG/DL) 118 H 126 H 157 H 131 H 106 Laboratory Tests 11/05 0510 Coagulation PTT ([place]) (25.0 - 39.5 Seconds) 37.5 Laboratory Tests 11/05 0510 Hematology WBC (4.5 - 11.0 x10 3/uL) 9.4 RBC (4.00 - 5.60 x10 6/uL) 3.98 L Hgb (12.5 - 16.9 g/dL) 10.0 L Hct (37.5 - 50.7 %) 32.1 L MCV (81.0 - 99.0 fL) 80.7 L MCH (27.0 - 33.0 pg) 25.1 L MCHC (33.0 - 37.0 g/dL) 31.2 L RDW (11.5 - 14.5 %) 16.2 H Plt Count (150 - 400 x10 3/uL) 197 MPV (7.0 - 9.0 fL) 11.6 H Neut % (Auto) (56.0 - 77.0 %) 75.8 Lymph % (Auto) (14.0 - 32.0 %) 12.0 L [place] % (Auto) (4.8 - 9.0 %) 7.4 Eos % (Auto) (0.3 - 3.7 %) 3.9 H Baso % (Auto) (0.0 - 2.0 %) 0.6 Neut # (Auto) (2.0 - 7.6 x10 3/uL) 7.12 Lymph # (Auto) (1.0 - 3.8 x10 3/uL) 1.13 [place] # (Auto) (0.1 - 0.8 x10 3/uL) 0.70 Eos # (Auto) (0.0 - 0.2 x10 3/uL) 0.37 H Baso # (Auto) (0.0 - 0.2 x10 3/uL) 0.06 Abs Immat Gran (auto) (0.00 - 0.03 x10 3/uL) 0.03 Add Manual Diff NO Immature Gran % (0.0 - 2.0 %) 0.3 Nucleated RBC % (0 - 0 %) 0.0 Nucleated RBCs # (Man) (0.0 - 0.1 x10 3/uL) 0.00 Diagnosis, Assessment PlanFree Text A P:Patient seen and evaluated, discussed with care team, images and laboratories reviewed.History of hypertension: On doxazosin/hydralazine and lisinopril: We will hold lisinopril: Multiple pressure closely and adjust medications as neededHistory of diabetes mellitus: On Farxiga at, will DC due to low GFR.History of hyperlipidemiaHistory of A. 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 Sodium 139, potassium 5, CO2 24, BUN 63, creatinine 3 down from 3.4 improving, hemoglobin 9,platelet 179, blood count 5. laboratory this morning showed hemoglobin 9.4, platelet 181, blood count 5.1, sodium 138, potassium 4.9, CO2 25, BUN 68, creatinine 3.1 relatively stable, will give 3 more doses of IV Lasix 40 mg every 8 hours, iron saturation 6.3%, ferritin 34, will give Ferrlecit 125 mg IV daily for 8 doses11/03/2022 laboratory this morning showed sodium 137, potassium 5.1, CO2 24, BUN 70, creatinine 3.4 up from 3.1, phosphorus 6.1 we will start PhosLo 1 p.o. with each meal, hemoglobin 9.1, platelet 147, blood count 4.5, will start Lasix 40 mgp.o. twice daily, will check fecal occult blood since patient had low iron stores11/04/2022 laboratory this morning showed sodium 136, potassium 5.1, CO2 21, BUN 63 down from 70, creatinine 3.1 down from 3.4 better, phosphorus 5.5 was startedon PhosLo yesterday, hemoglobin 9.3, platelet 174, blood count 4.7, continue Lasix 40 mg p.o. twice daily11/05/2022 laboratory this morning showed sodium 137, potassium 5, CO2 23, BUN 77, creatinine 3 down from 3.1, hemoglobin 10, platelet 177, blood count 9.4, output reported 1700 cc.Consultants: cardiology, nephrology at 1034 RPT #:[id number] OF REPORTPRProgress [id number]:43:[id number] able for patient [id number]:34:57 [facility] 2022-11-04 12:14:00 [id number] 15T12:14:00 [facility] ([facility])Hospitalist Progress NoteREPORT#:[id number] REPORT STATUS: SignedDATE:11/04/22 TIME: 1214 PATIENT: ROBE RITCHIE JR UNIT #: [id number]#: [id number] [address] [birth year] AGE: 77 SEX: M ATTEND: Kristina Hodge [facility] AUTHOR: Lis Benson MD * ALL edits or amendments must be made on the electronic/computer document * SubjectiveChief complaint:he feel well . no cp no sob pacemaker -- saturdayHPI:77 years old male with PMH of parkinson disease , CAD with CABG, afib , DM , HTNand CKD had watchman placement today . LETA show atrial thrombus . procedure was canceled . he is seen in the director of cardiac cath lab . he complaint of sob for 2 weeks . he hadinternal bleeding few weeks ago . xarelto stoped . he is on ASA. no cp no fever no cough no nausea no vomiting Review of SystemsConstitutional:Denies: generalized weakness, lethargy. Respiratory:Denies: pneumonia, productive cough (sputum), SOB. Cardiovascular:Denies: chest pain, edema. GI:Denies: abdominal pain, nausea, vomiting. :Denies: flank pain. Neuro:Denies: dizziness. Objective GeneralVS/I O:Vital Signs: Date Time Temp Pulse Resp B/P B/P Pulse O2 O2 Flow FiO2 Mean Ox Delivery Rate 11/04 0808 36.3 37 18 135/48 77.0 93 Room air 11/04 0359 36.4 39 18 115/37 63.2 95 11/04 0123 36.4 43 18 113/64 80.7 95 11/03 2219 36.4 40 16 112/36 61.1 97 11/03 1708 36.2 36 18 118/42 66.9 97 Room air 11/03 1228 36.2 47 18 115/49 70.9 94 Room air 24 hour I O ending at 0700: 11/04 0700 11/03 1900 Intake Total 100 Output Total 200 Balance -100 Intake, Oral 100 Output, Urine 200 Patient 100 kg Weight Weight Standing scale Measurement Method PATIENT WEIGHT: Weight (lb): 220Weight (oz): 7.4Weight (kg): 100.000 Medications:Active Meds + DC'd Last 24 HrsCalcium Acetate (CALCIUM ACETATE) 667 MG C MEALS PO Ferric Sodium Gluconate Complex (FERRLECIT) 125 MG DAILY IV Sodium Chloride (SODIUM CHLORIDE 0.9%) 100 MLFurosemide (LASIX) 40 MG BID 9A 5P PO Docusate Sodium (COLACE) 100 MG DAILY PO Aspirin (ASPIRIN) 81 MG BEDTIME PO Atorvastatin Calcium (LIPITOR) 40 MG BEDTIME PO Gabapentin (NEURONTIN) 300 MG BEDTIME PO Insulin Human Lispro (HUMALOG) 0 AC HS SUBQ Carbidopa/Levodopa (SINEMET-25 100) 2 TAB TID PO Pramipexole Dihydrochloride (MIRAPEX) 0.25 MG TID PO Dextrose/Water (DEXTROSE 10% IN WATER) 125 ML ASDIR PRN IV (CKD) Dextrose/Water (DEXTROSE 10% IN WATER) 250 ML ASDIR PRN IV (CKD) Glucagon (GLUCAGON) 1 MG ASDIR PRN IM Sodium Chloride (SODIUM CHLORIDE 0.9%) 250 ML ASDIR PRN IV Physical ExamGeneral appearance: alert, awake, orientedHead/Eyes: atraumatic, normal conjunctiva/sclera, normal eyelids/periorb., normocephalicNeck: full range of motion, non-tender, no JVDCardiovascular: bradycardic, normal heart soundsRespiratory: aerating well, clear to auscultationAbdomen: non-tender, normal bowel sounds, soft, no distentionExtremities: moves all, no calf tenderness, no edemaNeuro/TUMBLER PLATER: alert, oriented X 3, CNII-XII intact, normal speech, no motor deficits, no sensory deficitsSkin: dry, intact ResultsFindings/Data:Laboratory Tests 11/04 11/04 11/03 11/03 0804 0450 1656 1225 Chemistry Sodium (134 - 147 mEq/L) 136 Potassium (3.4 - 5.0 mEq/L) 5.1 H Chloride (100 - 108 mEq/L) 104 Carbon Dioxide (21 - 33 mEq/l) 21 Anion Gap (0 - 20) 16 BUN (7 - 18 mg/dL) 63 H Creatinine (0.6 - 1.3 mg/dL) 3.1 H Glomerular Filtr Rate (70 - 80) 19.7 L Glucose (70 - 110 mg/dL) 138 H POC Glucose (70 - 110 MG/DL) 106 129 H 156 H Calcium (8.0 - 10.5 mg/dL) 8.7 Phosphorus (2.5 - 4.9 MG/DL) 5.5 H Magnesium (1.80 - 2.40 mg/dL) 2.07 Laboratory Tests 11/04 0450 Hematology WBC (4.5 - 11.0 x10 3/uL) 4.7 RBC (4.00 - 5.60 x10 6/uL) 3.75 L Hgb (12.5 - 16.9 g/dL) 9.3 L Hct (37.5 - 50.7 %) 30.9 L MCV (81.0 - 99.0 fL) 82.4 MCH (27.0 - 33.0 pg) 24.8 L MCHC (33.0 - 37.0 g/dL) 30.1 L RDW (11.5 - 14.5 %) 16.1 H Plt Count (150 - 400 x10 3/uL) 174 MPV (7.0 - 9.0 fL) 11.6 H Neut % (Auto) (56.0 - 77.0 %) 65.4 Lymph % (Auto) (14.0 - 32.0 %) 16.3 [place] % (Auto) (4.8 - 9.0 %) 8.6 Eos % (Auto) (0.3 - 3.7 %) 8.2 H Baso % (Auto) (0.0 - 2.0 %) 1.1 Neut # (Auto) (2.0 - 7.6 x10 3/uL) 3.05 Lymph # (Auto) (1.0 - 3.8 x10 3/uL) 0.76 L [place] # (Auto) (0.1 - 0.8 x10 3/uL) 0.40 Eos # (Auto) (0.0 - 0.2 x10 3/uL) 0.38 H Baso # (Auto) (0.0 - 0.2 x10 3/uL) 0.05 Abs Immat Gran (auto) (0.00 - 0.03 x10 3/uL) 0.02 Add Manual Diff NO Immature Gran % (0.0 - 2.0 %) 0.4 Nucleated RBC % (0 - 0 %) 0.0 Nucleated RBCs # (Man) (0.0 - 0.1 x10 3/uL) 0.00 Microbiology Date/Time Procedure - Status Source Growth 11/03 2133 Occult Blood - COMP STOOL Diagnosis, Assessment PlanConsultants: cardiology, nephrology Free Text DxA P NotesFree text DxA P notes: atrial thrombus afib bradycardia SSSDMHTNCKDparkinson's disease Hx of bleeding atrial thrombus /afib/ bradycardia tele HR -- 40 -- manage as cardiology hematology consult -- [employer] AC start eliuis now DM-- hold metformin now -- sliding scale HTN -- stop lisinopril-- due to CKD -- hold hydralazine -- monitor BP -- well control now CKD-- nephrology consult DVTP-- on eliquis 11/01- he feel well -- tele -- show HR -- 20--30 at night -- EP consult as cardiology -- BP-- stable -- continue monitor in tele 11/02- he feel well -- EP consult -- no indication for pacemaker now -- thorancentesis -- 1200 cc fluid remove afternoon -- continue monitor in tele -- home if ok with cardiology and pulmon 11/03- his HR-- 39 --47 -- pacemaker placement -- saturday as EP and cardiology 11/04- no complaint -- remain bradycrdiac --pacemaker -- AM Quality: Gen Med Crit Care Current MedicationsCurrent medication review: Current Medications Sig/Denice Start time Last Medication Dose Route Stop Time Status Admin Docusate Sodium 100 MG DAILY 11/01 0900 AC PO 12/01 858 Aspirin 81 MG BEDTIME 10/31 2099 AC PO 11/30 2058 Atorvastatin Calcium 40 MG BEDTIME 10/31 2099 AC PO 11/30 2058 Gabapentin 300 MG BEDTIME 10/31 2099 AC PO 11/30 2058 Insulin Human Lispro 0 AC HS 10/31 1630 AC SUBQ 11/30 1629 Carbidopa/Levodopa 2 TAB TID 10/31 1500 AC PO 11/30 1459 Pramipexole 0.25 MG TID 10/31 1500 AC Dihydrochloride PO 11/30 1459 Dextrose/Water 125 ML ASDIR PRN 10/31 1200 CKD IV 11/30 1159 Dextrose/Water 250 ML ASDIR PRN 10/31 1200 CKD IV 11/30 1159 Glucagon 1 MG ASDIR PRN 10/31 1200 AC IM 11/30 1159 Furosemide 0 .STK-MED ONE 10/31 1045 DC .ROUTE Furosemide 0 .STK-MED ONE 10/31 1043 DC .ROUTE Furosemide 60 MG Q8HR 10/31 0945 AC 10/31 IV 10/31 2201 1047 Sodium Chloride 250 ML ASDIR PRN 10/31 0945 AC IV 11/30 0944 Apixaban 2.5 MG BID 10/31 0900 AC PO 11/30 0859 Atropine Sulfate 0.5 MG ASDIR PRN 10/31 0830 AC IV 11/01 0822 Sodium Chloride 500 ML ASDIR PRN 10/31 0830 AC IV 11/01 0822 Vancomycin HCl 0 .STK-MED ONE 10/31 0735 DC 10/31 .ROUTE 0751 Heparin Sodium 0 .STK-MED ONE 10/31 0724 DC .ROUTE Sugammadex Sodium 0 .STK-MED ONE 10/31 0715 DC IV Sodium Chloride 250 ML .STK-MED ONE 10/31 0703 DC IV Heparin Sodium 0 .STK-MED ONE 10/31 0700 DC .ROUTE Norepinephrine 0 .STK-MED ONE 10/31 07 DC Bitartrate IV Propofol 20 ML .STK-MED ONE 10/31 07 DC IV Rocuronium [place] 0 .STK-MED ONE 10/31 07 DC IV Heparin Sodium 0 .STK-MED ONE 10/31 0658 DC 10/31 .ROUTE 0751 Heparin Sodium/ 2,000 ML .STK-MED ONE 10/31 0658 DC 10/31 Sodium Chloride IV 0751 Heparin Sodium/ 500 ML .STK-MED ONE 10/31 0658 DC 10/31 Sodium Chloride IV 0751 Bupivacaine HCl 0 .STK-MED ONE 10/31 0657 DC .ROUTE Acetaminophen 0 .STK-MED ONE 10/31 642 DC .ROUTE Gabapentin 0 .STK-MED ONE 10/31 642 DC .ROUTE Lidocaine HCl 0 .STK-MED ONE 10/31 642 DC .ROUTE Acetaminophen 1,000 MG PREOP ONCALL 10/29 1145 DC PO 11/28 2359 Lactated Ringer's 1,000 ML PREOP ONCALL 10/29 1145 DC IV 11/28 2359 Lidocaine HCl 2 ML PREOP ONCALL 10/29 1145 DC LOCAL 11/28 2359 Lidocaine HCl 2 ML PREOP ONCALL 10/29 1145 DC LOCAL 11/28 2359 Sodium Chloride 500 ML PREOP ONCALL 10/29 1145 DC IV 11/28 2359 Sodium Chloride 500 ML PREOP ONCALL 10/29 1145 DC IV 11/28 2359 Sodium Chloride 1,000 ML PREOP ONCALL 10/29 1145 DC IV 11/28 2359 Sodium Chloride 5 ML ASDIR PRN 10/29 1145 AC IV 11/28 1144 Sodium Chloride 10 ML ASDIR PRN 10/29 1145 AC IV 11/28 1144 Sodium Chloride 250 ML ASDIR PRN 10/29 1145 DC IV 11/28 1144 Home Medications:ATORVASTATIN (LIPITOR) 40 MG PO BEDTIME DOXAZOSIN (CARDURA) 2 MG PO BEDTIME ASPIRIN 81 MG PO BEDTIME Dapagliflozin Propanediol (FARXIGA) 5 MG PO DAILY FUROSEMIDE (LASIX) 20 MG PO DAILY PRN EDEMA hydrALAZINE (APRESOLINE) 25 MG PO TID LISINOPRIL (ZESTRIL) 20 MG PO DAILY GABAPENTIN (NEURONTIN) 300 MG PO BEDTIME PRAMIPEXOLE DI-HCL (MIRAPEX) 0.25 MG PO TID [AREDS N2 EYES] 1 CAP PO BID CARBIDOPA/LEVODOPA (SINEMET 25/100 MG) 2 TAB PO TID SODIUM BICARBONATE 650 MG PO BID UMECLIDINIUM BRM/VILANTEROL TR (ANORO ELLIPTA 62.5-25 MCG INH) 1 PUFF INH RTDAILY AMIODARONE (PACERONE) 200 MG PO DAILY [PREVAGEN EXT STRENGT] 1 PO DAILY [BALANCE FRUIT] 3 TAB PO DAILY [BALANCE VEGGIES] 3 TAB PO DAILY [MINERALS IMMUNO 150] 3 TAB PO DAILY UBIDECARENONE (CO Q-10) (Unknown Dose) PO DAILY DOCUSATE SODIUM (COLACE) 100 MG PO DAILY I attest that the foregoing medication list in the medical record is true, accurate, and complete to the best of my knowledge. at 1757 RPT #:[id number] OF REPORTPRProgress [id number]:14:[id number] able for patient [id number]:58:25 [facility] 2022-11-04 09:03:00 [id number] 15T09:03:00 [facility] ([facility])Cardiology Progress NoteREPORT#:[id number] REPORT STATUS: SignedDATE:11/04/22 TIME: 09 PATIENT: ROBE RITCHIE UNIT #: [id number]#: [id number] [address] [birth year] AGE: 77 SEX: M ATTEND: Kristina Hodge AUTHOR: Erica Vaughan [employer]OTH HANDLER * ALL edits or amendments must be made on the electronic/computer document * SubjectiveChief complaint:Want to walk around nursing stationPatient reports:No: chest pain, palpitations, shortness of breath. Nursing reports:No: complaints. Comments:Patient is on room air, NAD.Telemetry shows atrial fibrillation. Objective GeneralVS/I O:24 hour I O ending at 0700: 11/03 1900 11/04 0700 Intake Total 100 Output Total 200 Balance -100 Intake, Oral 100 Output, Urine 200 Patient 100 kg Weight Weight Standing scale Measurement Method Vital Signs: Date Time Temp Pulse Resp B/P B/P Pulse O2 O2 Flow FiO2 Mean Ox Delivery Rate 11/04 0808 97.3 37 18 135/48 77.0 93 Room air 11/04 0359 97.5 39 18 115/37 63.2 95 11/04 0123 97.5 43 18 113/64 80.7 95 11/03 2219 97.5 40 16 112/36 61.1 97 11/03 1708 97.2 36 18 118/42 66.9 97 Room air 11/03 1228 97.2 47 18 115/49 70.9 94 Room air PATIENT WEIGHT: Weight (lb): 220Weight (oz): 7.4Weight (kg): 100.000 Medications:Active Meds + DC'd Last 24 HrsCalcium Acetate (CALCIUM ACETATE) 667 MG C MEALS PO Ferric Sodium Gluconate Complex (FERRLECIT) 125 MG DAILY IV Sodium Chloride (SODIUM CHLORIDE 0.9%) 100 MLFurosemide (LASIX) 40 MG BID 9A 5P PO Docusate Sodium (COLACE) 100 MG DAILY PO Aspirin (ASPIRIN) 81 MG BEDTIME PO Atorvastatin Calcium (LIPITOR) 40 MG BEDTIME PO Gabapentin (NEURONTIN) 300 MG BEDTIME PO Insulin Human Lispro (HUMALOG) 0 AC HS SUBQ Carbidopa/Levodopa (SINEMET-25 100) 2 TAB TID PO Pramipexole Dihydrochloride (MIRAPEX) 0.25 MG TID PO Dextrose/Water (DEXTROSE 10% IN WATER) 125 ML ASDIR PRN IV (CKD) Dextrose/Water (DEXTROSE 10% IN WATER) 250 ML ASDIR PRN IV (CKD) Glucagon (GLUCAGON) 1 MG ASDIR PRN IM Sodium Chloride (SODIUM CHLORIDE 0.9%) 250 ML ASDIR PRN IV Status post:11/02 right thoracentesis drained 1.2 L Physical ExamGeneral appearance: alert, awake, oriented, no acute distress, pleasant, conversational, mental status normal, no respiratory distressHead/Eyes: atraumaticENT: moist mucosal membranesNeck: non-tender, no JVDCardiovascular: CV assessment: bradycardia, irregularly irregular, no murmurRespiratory: decreased breath sounds, no distressAbdomen: soft, non-tenderGenitourinary: no flank pain, no urinary catheterUpper extremity: UE assessment: normal temperatureLower extremity: LE assessment: edemaMusculoskeletal: normal inspectionNeuro/TUMBLER PLATER: alert, oriented X 3, normal speechSkin: dry, some erythema of BLEPsychiatry: normal affect, normal mood ResultsFindings/Data:Laboratory Tests 11/03 11/03 11/04 11/04 1225 1656 0450 0804 Chemistry Sodium (134 - 147 mEq/L) 136 Potassium (3.4 - 5.0 mEq/L) 5.1 H Chloride (100 - 108 mEq/L) 104 Carbon Dioxide (21 - 33 mEq/l) 21 Anion Gap (0 - 20) 16 BUN (7 - 18 mg/dL) 63 H Creatinine (0.6 - 1.3 mg/dL) 3.1 H Glomerular Filtr Rate (70 - 80) 19.7 L Glucose (70 - 110 mg/dL) 138 H POC Glucose (70 - 110 MG/DL) 156 H 129 H 106 Calcium (8.0 - 10.5 mg/dL) 8.7 Phosphorus (2.5 - 4.9 MG/DL) 5.5 H Magnesium (1.80 - 2.40 mg/dL) 2.07 Laboratory Tests 11/04 0450 Hematology WBC (4.5 - 11.0 x10 3/uL) 4.7 RBC (4.00 - 5.60 x10 6/uL) 3.75 L Hgb (12.5 - 16.9 g/dL) 9.3 L Hct (37.5 - 50.7 %) 30.9 L MCV (81.0 - 99.0 fL) 82.4 MCH (27.0 - 33.0 pg) 24.8 L MCHC (33.0 - 37.0 g/dL) 30.1 L RDW (11.5 - 14.5 %) 16.1 H Plt Count (150 - 400 x10 3/uL) 174 MPV (7.0 - 9.0 fL) 11.6 H Neut % (Auto) (56.0 - 77.0 %) 65.4 Lymph % (Auto) (14.0 - 32.0 %) 16.3 [place] % (Auto) (4.8 - 9.0 %) 8.6 Eos % (Auto) (0.3 - 3.7 %) 8.2 H Baso % (Auto) (0.0 - 2.0 %) 1.1 Neut # (Auto) (2.0 - 7.6 x10 3/uL) 3.05 Lymph # (Auto) (1.0 - 3.8 x10 3/uL) 0.76 L [place] # (Auto) (0.1 - 0.8 x10 3/uL) 0.40 Eos # (Auto) (0.0 - 0.2 x10 3/uL) 0.38 H Baso # (Auto) (0.0 - 0.2 x10 3/uL) 0.05 Abs Immat Gran (auto) (0.00 - 0.03 x10 3/uL) 0.02 Add Manual Diff NO Immature Gran % (0.0 - 2.0 %) 0.4 Nucleated RBC % (0 - 0 %) 0.0 Nucleated RBCs # (Man) (0.0 - 0.1 x10 3/uL) 0.00 Microbiology Date/Time Procedure - Status Source Growth 11/03 2133 Occult Blood - COMP STOOL Laboratory Tests 11/04 0450 Chemistry Magnesium (1.80 - 2.40 mg/dL) 2.07 Results: labs reviewed, vital signs reviewed, vital signs stable, rhythm personally rev'd, current med profile rev'dTelemetry Interpretation:Atrial fibrillation Diagnosis, Assessment PlanProblem List/A P: 1. Atrial fibrillation 2. KRISTI (acute kidney injury) 3. Hx of CABG 4. Diastolic CHF Consultants: cardiology, nephrologyPlan discussed with: patient, nurse Free Text DxA P NotesFree Text DxA P Notes:77 YO male with PMHx of CAD s/p 3V CABG (2014), chronic atrial fibrillation, GI Bleed, hypertension, CKD, and Diastolic CHF. He was on chronic anticoagulation with Xarelto but developed GI bleed. He was admitted today to undergo watchman procedure. However, during the preoperative LETA he was found to have left atrial appendage thrombus so the procedure was halted, also found to have elevated creatinine, and volume overloaded 1. Chronic atrial fibrillation - slow A. fib/AFLT. Per EPS.Watchman halted due to left atrial thrombusHold Eliquis - plan PPM in a.m 11/05.not on BB, CCB or AA d/t bradycardiacontinue telemetry - monitor for sick sinus syndromeRepeat Echo in a month to eval LA clotplan PPM on Saturday, 11/05. No dizziness. 2. Left atrial thrombusEliquis 2.5 mg BID - on hold for PPM on Saturday, 11/05. 3. KRISTI on CKDunclear baseline kidney functioncreatinine 3.4->3.0->3.1 ->3.4Nephrology followingOn Lasix 40 mg IV twice daily 4. Acute on chronic diastolic CHFEcho with normal EF, mild ASBNP 295Diuresis per nephrology, currently on IV Lasix 40 mg bid 5. CAD with prior 3V CABGno BB due to bradycardiacontinue ASA and statin 6. Lower extremity edema d/t fluid overloaddiuresis per nephroLE venous doppler no DVT 7. Hypertensionnormotensivemonitor off BP medshold ACEI/ARBs d/t KRISTI, no BB d/t bradycardia 8. History of GIB bleedhgb 9.2->9->9.4-> 9.1-> 9.3 9. CXR showed RLL opacity/pleural effusionWBC normal, no fevercould be 2/2 volume overload, on IV Lasixs/p rt thoracentesis 1.2 L (11/02)per Pulm Okay ambulate around nursing station with physical therapy CV stable.Cont supportive care.plan pacemaker in a.m. at 1226 at 1320 RPT #:[id number] OF REPORTPRProgress [id number]:03:[id number] able for patient [id number]:26:56 [facility] 2022-11-04 08:03:00 [id number] 15T08:03:00 [facility] ([facility])Nephrology Progress NoteREPORT#:[id number] REPORT STATUS: SignedDATE:11/04/22 TIME: 0803 PATIENT: ROBE RITCHIE UNIT #: [id number]#: [id number] [address] [birth year] AGE: 77 SEX: M ATTEND: Kristina Hodge AUTHOR: Sherly Gomes MD * ALL edits or amendments must be made on the electronic/computer document * SubjectiveChief complaint:For watchman deviceHPI:Patient seen and evaluated, discussed with care team, 77-year-old male with history of diabetes mellitus, hypertension, hyperlipidemia, chronic kidney disease followed by patient liaison in [place] who presented for watchman's device placement, however the procedure was aborted due to TTE showing atrial thrombus. His laboratories showed sodium 141, potassium 5, CO2 25, BUN 69, creatinine 3.4, glucose 107, hemoglobin 9.2, platelet 191, blood count 5.7. Patient seen post procedure in the PACU, he feels okay except for shortness of breath. Renal consult was requested for evaluation management of his elevated BUN and creatinine.Patient reports:Yes: complaints. Comments:Patient seen and evaluated, HPI no change from initial, feels okay. Review of SystemsConstitutional:Reports: fatigue. Denies: chills, fever. Skin:Denies: abrasion, bruising. Allergy/Immun:Denies: hives, itching. Eyes:Denies: redness, discharge. ENT:Denies: ear drainage, ear ringing. Respiratory:Denies: hemoptysis, SOB. Cardiovascular:Denies: chest pain. Objective GeneralVS/I O:Vital Signs: Date Time Temp Pulse Resp B/P B/P Pulse O2 O2 Flow FiO2 Mean Ox Delivery Rate 11/04 0359 36.4 39 18 115/37 63.2 95 11/04 0123 36.4 43 18 113/64 80.7 95 11/03 2219 36.4 40 16 112/36 61.1 97 11/03 1708 36.2 36 18 118/42 66.9 97 Room air 11/03 1228 36.2 47 18 115/49 70.9 94 Room air 24 hour I O ending at 0700: 11/04 0700 11/03 1900 Intake Total 100 Output Total 200 Balance -100 Intake, Oral 100 Output, Urine 200 Patient 100 kg Weight Weight Standing scale Measurement Method PATIENT WEIGHT: Weight (lb): 220Weight (oz): 7.4Weight (kg): 100.000 MedicationsActive Meds + DC'd Last 24 HrsCalcium Acetate (CALCIUM ACETATE) 667 MG C MEALS PO Ferric Sodium Gluconate Complex (FERRLECIT) 125 MG DAILY IV Sodium Chloride (SODIUM CHLORIDE 0.9%) 100 MLFurosemide (LASIX) 40 MG BID 9A 5P PO Docusate Sodium (COLACE) 100 MG DAILY PO Aspirin (ASPIRIN) 81 MG BEDTIME PO Atorvastatin Calcium (LIPITOR) 40 MG BEDTIME PO Gabapentin (NEURONTIN) 300 MG BEDTIME PO Insulin Human Lispro (HUMALOG) 0 AC HS SUBQ Carbidopa/Levodopa (SINEMET-25 100) 2 TAB TID PO Pramipexole Dihydrochloride (MIRAPEX) 0.25 MG TID PO Dextrose/Water (DEXTROSE 10% IN WATER) 125 ML ASDIR PRN IV (CKD) Dextrose/Water (DEXTROSE 10% IN WATER) 250 ML ASDIR PRN IV (CKD) Glucagon (GLUCAGON) 1 MG ASDIR PRN IM Sodium Chloride (SODIUM CHLORIDE 0.9%) 250 ML ASDIR PRN IV Physical ExamGeneral appearance: alert, no acute distressHead/eyes: atraumatic, normocephalicENT: normal noseNeck: non-tender, supple/no meningismusCardiovascular: normal heart sounds, no rubRespiratory: aerating well, symmetric expansionAbdomen: non-tender, softGenitourinary: no flank pain, no urinary catheterExtremities: pitting edema, non-tenderMusculoskeletal: no CVA tenderness, no tendernessNeuro/TUMBLER PLATER: alert, normal speechSkin: dry, intact ResultsFindings/Data:Laboratory Tests 11/04 11/03 11/03 11/03 11/03 0450 1656 1225 0505 0500 Chemistry Sodium (134 - 147 mEq/L) 136 137 Potassium (3.4 - 5.0 mEq/L) 5.1 H 5.1 H Chloride (100 - 108 mEq/L) 104 103 Carbon Dioxide (21 - 33 mEq/l) 21 24 Anion Gap (0 - 20) 16 15 BUN (7 - 18 mg/dL) 63 H 70 H Creatinine (0.6 - 1.3 mg/dL) 3.1 H 3.4 H Glomerular Filtr Rate (70 - 80) 19.7 L 17.6 L Glucose (70 - 110 mg/dL) 138 H 149 H POC Glucose (70 - 110 MG/DL) 129 H 156 H 150 H Calcium (8.0 - 10.5 mg/dL) 8.7 9.1 Phosphorus (2.5 - 4.9 MG/DL) 5.5 H 6.1 H Magnesium (1.80 - 2.40 mg/dL) 2.07 2.10 01/13 11/02 1735 1111 0803 0803 Chemistry Sodium (134 - 147 mEq/L) 138 Potassium (3.4 - 5.0 mEq/L) 4.9 Chloride (100 - 108 mEq/L) 104 Carbon Dioxide (21 - 33 mEq/l) 25 Anion Gap (0 - 20) 14 BUN (7 - 18 mg/dL) 68 H Creatinine (0.6 - 1.3 mg/dL) 3.1 H Glomerular Filtr Rate (70 - 80) 19.7 L Glucose (70 - 110 mg/dL) 119 H POC Glucose (70 - 110 MG/DL) 158 H 179 H 166 H Calcium (8.0 - 10.5 mg/dL) 9.7 Phosphorus (2.5 - 4.9 MG/DL) 4.8 Magnesium (1.80 - 2.40 mg/dL) 2.03 Iron (35 - 150 mcg/dL) 24 L TIBC (260 - 445 mcg/dL) 378 % Saturation (14 - 34 %) 6.3 L Unsat Iron Binding (mcg/dL) 354 Ferritin (23.9 - 336.2 ng/mL) 34.5 11/02 11/01 11/01 11/01 0533 1959 1716 1159 Chemistry POC Glucose (70 - 110 MG/DL) 118 H 141 H 176 H 153 H Laboratory Tests 11/04 11/03 11/02 0450 0505 0803 Hematology WBC (4.5 - 11.0 x10 3/uL) 4.7 4.5 5.1 RBC (4.00 - 5.60 x10 6/uL) 3.75 L 3.68 L 3.80 L Hgb (12.5 - 16.9 g/dL) 9.3 L 9.1 L 9.4 L Hct (37.5 - 50.7 %) 30.9 L 30.0 L 30.7 L MCV (81.0 - 99.0 fL) 82.4 81.5 80.8 L MCH (27.0 - 33.0 pg) 24.8 L 24.7 L 24.7 L MCHC (33.0 - 37.0 g/dL) 30.1 L 30.3 L 30.6 L RDW (11.5 - 14.5 %) 16.1 H 15.9 H 16.1 H Plt Count (150 - 400 x10 3/uL) 174 147 L 181 MPV (7.0 - 9.0 fL) 11.6 H 10.5 H 10.7 H Neut % (Auto) (56.0 - 77.0 %) 65.4 62.6 65.2 Lymph % (Auto) (14.0 - 32.0 %) 16.3 19.8 17.8 [place] % (Auto) (4.8 - 9.0 %) 8.6 10.4 H 9.5 H Eos % (Auto) (0.3 - 3.7 %) 8.2 H 5.9 H 6.3 H Baso % (Auto) (0.0 - 2.0 %) 1.1 1.1 1.0 Neut # (Auto) (2.0 - 7.6 x10 3/uL) 3.05 2.84 3.29 Lymph # (Auto) (1.0 - 3.8 x10 3/uL) 0.76 L 0.90 L 0.90 L [place] # (Auto) (0.1 - 0.8 x10 3/uL) 0.40 0.47 0.48 Eos # (Auto) (0.0 - 0.2 x10 3/uL) 0.38 H 0.27 H 0.32 H Baso # (Auto) (0.0 - 0.2 x10 3/uL) 0.05 0.05 0.05 Abs Immat Gran (auto) (0.00 - 0.03 x10 3/uL) 0.02 0.01 0.01 Add Manual Diff NO NO NO Immature Gran % (0.0 - 2.0 %) 0.4 0.2 0.2 Nucleated RBC % (0 - 0 %) 0.0 0.0 0.0 Nucleated RBCs # (Man) (0.0 - 0.1 x10 3/uL) 0.00 0.00 0.00 Laboratory Tests 11/02 11/01 11/01 11/01 1345 1345 1345 1345 Other Body Source Pleural Color YELLOW Pleural Appearance CLEAR Pleural RBC (0 - 0 Cells/uL) < 2000 H Pleural Tot WBC Counted (0 - 500 cells/uL) 221 Pleural Mesothelial RARE Pleural Polynuclear % (%) 38 Pleural Lymphocytes % (%) 31 Pleural Monocytes % (%) 26 Pleural Macrophages % (%) 5 Pleural Total Protein (() GM/DL) 2.8 Pleural LDH (() UNITS/L) 102 Pleural Glucose (() MG/DL) 142 Microbiology Date/Time Procedure - Status Source Growth 11/03 2133 Occult Blood - COMP STOOL Recent Impressions:ULTRASOUND - US THORACENTESIS W/IMAG 11/02 1410 Report Impression - Status: SIGNED Entered: 11/02/2022 1633 IMPRESSION: Technically successful ultrasound guided right thoracentesis. Impression By: [email or web address] - Terri Matos M.D.RADIOLOGY - XR CHEST 1 V 11/02 1415 Report Impression - Status: SIGNED Entered: 11/02/2022 1457 IMPRESSION: Decreased but persistent right lower lobe infiltrate and pleural effusion. Impression By: [id number] - Uriel Leon M.D. Laboratory Tests 11/04 11/03 11/03 0450 1656 1225 Chemistry Sodium (134 - 147 mEq/L) 136 Potassium (3.4 - 5.0 mEq/L) 5.1 H Chloride (100 - 108 mEq/L) 104 Carbon Dioxide (21 - 33 mEq/l) 21 Anion Gap (0 - 20) 16 BUN (7 - 18 mg/dL) 63 H Creatinine (0.6 - 1.3 mg/dL) 3.1 H Glomerular Filtr Rate (70 - 80) 19.7 L Glucose (70 - 110 mg/dL) 138 H POC Glucose (70 - 110 MG/DL) 129 H 156 H Calcium (8.0 - 10.5 mg/dL) 8.7 Phosphorus (2.5 - 4.9 MG/DL) 5.5 H Magnesium (1.80 - 2.40 mg/dL) 2.07 Laboratory Tests 11/04 0450 Hematology WBC (4.5 - 11.0 x10 3/uL) 4.7 RBC (4.00 - 5.60 x10 6/uL) 3.75 L Hgb (12.5 - 16.9 g/dL) 9.3 L Hct (37.5 - 50.7 %) 30.9 L MCV (81.0 - 99.0 fL) 82.4 MCH (27.0 - 33.0 pg) 24.8 L MCHC (33.0 - 37.0 g/dL) 30.1 L RDW (11.5 - 14.5 %) 16.1 H Plt Count (150 - 400 x10 3/uL) 174 MPV (7.0 - 9.0 fL) 11.6 H Neut % (Auto) (56.0 - 77.0 %) 65.4 Lymph % (Auto) (14.0 - 32.0 %) 16.3 [place] % (Auto) (4.8 - 9.0 %) 8.6 Eos % (Auto) (0.3 - 3.7 %) 8.2 H Baso % (Auto) (0.0 - 2.0 %) 1.1 Neut # (Auto) (2.0 - 7.6 x10 3/uL) 3.05 Lymph # (Auto) (1.0 - 3.8 x10 3/uL) 0.76 L [place] # (Auto) (0.1 - 0.8 x10 3/uL) 0.40 Eos # (Auto) (0.0 - 0.2 x10 3/uL) 0.38 H Baso # (Auto) (0.0 - 0.2 x10 3/uL) 0.05 Abs Immat Gran (auto) (0.00 - 0.03 x10 3/uL) 0.02 Add Manual Diff NO Immature Gran % (0.0 - 2.0 %) 0.4 Nucleated RBC % (0 - 0 %) 0.0 Nucleated RBCs # (Man) (0.0 - 0.1 x10 3/uL) 0.00 Microbiology Date/Time Procedure - Status Source Growth 11/03 2133 Occult Blood - COMP STOOL Diagnosis, Assessment PlanFree Text A P:Patient seen and evaluated, discussed with care team, images and laboratories reviewed.History of hypertension: On doxazosin/hydralazine and lisinopril: We will hold lisinopril: Multiple pressure closely and adjust medications as neededHistory of diabetes mellitus: On Farxiga at, will DC due to low GFR.History of hyperlipidemiaHistory of A. 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 Sodium 139, potassium 5, CO2 24, BUN 63, creatinine 3 down from 3.4 improving, hemoglobin 9,platelet 179, blood count 5. laboratory this morning showed hemoglobin 9.4, platelet 181, blood count 5.1, sodium 138, potassium 4.9, CO2 25, BUN 68, creatinine 3.1 relatively stable, will give 3 more doses of IV Lasix 40 mg every 8 hours, iron saturation 6.3%, ferritin 34, will give Ferrlecit 125 mg IV daily for 8 doses11/03/2022 laboratory this morning showed sodium 137, potassium 5.1, CO2 24, BUN 70, creatinine 3.4 up from 3.1, phosphorus 6.1 we will start PhosLo 1 p.o. with each meal, hemoglobin 9.1, platelet 147, blood count 4.5, will start Lasix 40 mgp.o. twice daily, will check fecal occult blood since patient had low iron stores11/04/2022 laboratory this morning showed sodium 136, potassium 5.1, CO2 21, BUN 63 down from 70, creatinine 3.1 down from 3.4 better, phosphorus 5.5 was startedon PhosLo yesterday, hemoglobin 9.3, platelet 174, blood count 4.7, continue Lasix 40 mg p.o. twice dailyConsultants: cardiology, nephrology at 0929 [facility] #:[id number] OF REPORTPRProgress [id number]:03:00G.[id number] able for patient [id number]:30:01 [facility] 2022-11-03 15:06:00 [id number] 14T15:06:00 [facility] ([facility])Hospitalist Progress NoteREPORT#:[id number] REPORT STATUS: SignedDATE:11/03/22 TIME: 1506 PATIENT: ROBE RITCHIE JR UNIT #: [id number]#: [id number] [address] [birth year] AGE: 77 SEX: M ATTEND: Kristina Hodge AUTHOR: Lis Benson MD * ALL edits or amendments must be made on the electronic/computer document * SubjectiveChief complaint:less sob after thoracentesis pacemaker -- saturday HPI:77 years old male with PMH of parkinson disease , CAD with CABG, afib , DM , HTNand CKD had watchman placement today . LETA show atrial thrombus . procedure was canceled . he is seen in the director of cardiac cath lab . he complaint of sob for 2 weeks . he hadinternal bleeding few weeks ago . xarelto stoped . he is on ASA. no cp no fever no cough no nausea no vomiting Review of SystemsConstitutional:Denies: fatigue, fever, generalized weakness, lethargy. Respiratory:Denies: productive cough (sputum), SOB, wheezing. Cardiovascular:Denies: chest pain, GONZALEZ (dyspnea on exertion), edema, palpitations. GI:Denies: abdominal pain, nausea, vomiting. Neuro:Denies: dizziness, headache. Objective GeneralVS/I O:Vital Signs: Date Time Temp Pulse Resp B/P B/P Pulse O2 O2 Flow FiO2 Mean Ox Delivery Rate 11/03 1228 36.2 47 18 115/49 70.9 94 Room air 11/03 0709 36.4 39 18 110/37 0.0 99 Room air 11/03 0501 36.4 42 16 104/65 78.0 97 Room air 11/03 0056 36.5 40 16 105/51 69.1 98 Room air 11/02 2045 Nasal 2 cannula 11/02 2032 36.5 43 16 110/49 69.7 95 Room air 11/02 1738 36.4 37 17 157/55 88.6 98 Room air PATIENT WEIGHT: Weight (lb): 220Weight (oz): 7.4Weight (kg): 100.000 Medications:Active Meds + DC'd Last 24 HrsCalcium Acetate (CALCIUM ACETATE) 667 MG C MEALS PO Ferric Sodium Gluconate Complex (FERRLECIT) 125 MG DAILY IV Sodium Chloride (SODIUM CHLORIDE 0.9%) 100 MLFurosemide (LASIX) 40 MG BID 9A 5P PO Furosemide (LASIX 40 mg/4 mL INJECTION) 40 MG Q8HR IV (DC) Docusate Sodium (COLACE) 100 MG DAILY PO Aspirin (ASPIRIN) 81 MG BEDTIME PO Atorvastatin Calcium (LIPITOR) 40 MG BEDTIME PO Gabapentin (NEURONTIN) 300 MG BEDTIME PO Insulin Human Lispro (HUMALOG) 0 AC HS SUBQ Carbidopa/Levodopa (SINEMET-25 100) 2 TAB TID PO Pramipexole Dihydrochloride (MIRAPEX) 0.25 MG TID PO Dextrose/Water (DEXTROSE 10% IN WATER) 125 ML ASDIR PRN IV (CKD) Dextrose/Water (DEXTROSE 10% IN WATER) 250 ML ASDIR PRN IV (CKD) Glucagon (GLUCAGON) 1 MG ASDIR PRN IM Sodium Chloride (SODIUM CHLORIDE 0.9%) 250 ML ASDIR PRN IV Physical ExamGeneral appearance: alert, awake, orientedHead/Eyes: atraumatic, normal conjunctiva/sclera, normal eyelids/periorb., normocephalicNeck: full range of motion, non-tender, no JVDCardiovascular: bradycardic, normal heart soundsRespiratory: aerating well, clear to auscultationAbdomen: non-tender, normal bowel sounds, soft, no distentionExtremities: moves all, no calf tenderness, no edemaNeuro/TUMBLER PLATER: alert, oriented X 3, CNII-XII intact, normal speech, no motor deficits, no sensory deficitsSkin: dry, intact ResultsFindings/Data:Laboratory Tests 11/03 11/03 11/03 11/02 11/02 1225 0505 0500 2031 1735 Chemistry Sodium (134 - 147 mEq/L) 137 Potassium (3.4 - 5.0 mEq/L) 5.1 H Chloride (100 - 108 mEq/L) 103 Carbon Dioxide (21 - 33 mEq/l) 24 Anion Gap (0 - 20) 15 BUN (7 - 18 mg/dL) 70 H Creatinine (0.6 - 1.3 mg/dL) 3.4 H Glomerular Filtr Rate (70 - 80) 17.6 L Glucose (70 - 110 mg/dL) 149 H POC Glucose (70 - 110 MG/DL) 156 H 150 H 158 H 179 H Calcium (8.0 - 10.5 mg/dL) 9.1 Phosphorus (2.5 - 4.9 MG/DL) 6.1 H Magnesium (1.80 - 2.40 mg/dL) 2.10 Laboratory Tests 11/03 0505 Hematology WBC (4.5 - 11.0 x10 3/uL) 4.5 RBC (4.00 - 5.60 x10 6/uL) 3.68 L Hgb (12.5 - 16.9 g/dL) 9.1 L Hct (37.5 - 50.7 %) 30.0 L MCV (81.0 - 99.0 fL) 81.5 MCH (27.0 - 33.0 pg) 24.7 L MCHC (33.0 - 37.0 g/dL) 30.3 L RDW (11.5 - 14.5 %) 15.9 H Plt Count (150 - 400 x10 3/uL) 147 L MPV (7.0 - 9.0 fL) 10.5 H Neut % (Auto) (56.0 - 77.0 %) 62.6 Lymph % (Auto) (14.0 - 32.0 %) 19.8 [place] % (Auto) (4.8 - 9.0 %) 10.4 H Eos % (Auto) (0.3 - 3.7 %) 5.9 H Baso % (Auto) (0.0 - 2.0 %) 1.1 Neut # (Auto) (2.0 - 7.6 x10 3/uL) 2.84 Lymph # (Auto) (1.0 - 3.8 x10 3/uL) 0.90 L [place] # (Auto) (0.1 - 0.8 x10 3/uL) 0.47 Eos # (Auto) (0.0 - 0.2 x10 3/uL) 0.27 H Baso # (Auto) (0.0 - 0.2 x10 3/uL) 0.05 Abs Immat Gran (auto) (0.00 - 0.03 x10 3/uL) 0.01 Add Manual Diff NO Immature Gran % (0.0 - 2.0 %) 0.2 Nucleated RBC % (0 - 0 %) 0.0 Nucleated RBCs # (Man) (0.0 - 0.1 x10 3/uL) 0.00 Diagnosis, Assessment PlanConsultants: cardiology, nephrology Free Text DxA P NotesFree text DxA P notes: atrial thrombus afib bradycardia SSSDMHTNCKDparkinson's disease Hx of bleeding atrial thrombus /afib/ bradycardia tele HR -- 40 -- manage as cardiology hematology consult -- usp AC start eliuis now DM-- hold metformin now -- sliding scale HTN -- stop lisinopril-- due to CKD -- hold hydralazine -- monitor BP -- well control now CKD-- nephrology consult DVTP-- on eliquis 11/01- he feel well -- tele -- show HR -- 20--30 at night -- EP consult as cardiology -- BP-- stable -- continue monitor in tele 11/02- he feel well -- EP consult -- no indication for pacemaker now -- thorancentesis -- 1200 cc fluid remove afternoon -- continue monitor in tele -- home if ok with cardiology and pulmon 11/03- his HR-- 39 --47 -- pacemaker placement -- saturday as EP and cardiology Quality: Gen Med Crit Care Current MedicationsCurrent medication review: Current Medications Sig/Denice Start time Last Medication Dose Route Stop Time Status Admin Docusate Sodium 100 MG DAILY 11/01 0900 AC PO 12/01 0859 Aspirin 81 MG BEDTIME 10/31 2100 AC PO 11/30 2058 Atorvastatin Calcium 40 MG BEDTIME 10/31 2100 AC PO 11/30 2058 Gabapentin 300 MG BEDTIME 10/31 2100 AC PO 11/30 2058 Insulin Human Lispro 0 AC HS 10/31 1630 AC SUBQ 11/30 1629 Carbidopa/Levodopa 2 TAB TID 10/31 1500 AC PO 11/30 1459 Pramipexole 0.25 MG TID 10/31 1500 AC Dihydrochloride PO 11/30 1459 Dextrose/Water 125 ML ASDIR PRN 10/31 1200 CKD IV 11/30 1159 Dextrose/Water 250 ML ASDIR PRN 10/31 1200 CKD IV 02/10 1159 Glucagon 1 MG ASDIR PRN 10/31 1200 AC IM 11/30 1159 Furosemide 0 .STK-MED ONE 10/31 1045 DC .ROUTE Furosemide 0 .STK-MED ONE 10/31 1043 DC .ROUTE Furosemide 60 MG Q8HR 10/31 0945 AC 10/31 IV 10/31 2201 1047 Sodium Chloride 250 ML ASDIR PRN 10/31 0945 AC IV 11/30 0944 Apixaban 2.5 MG BID 10/31 0900 AC PO 11/30 0859 Atropine Sulfate 0.5 MG ASDIR PRN 10/31 0830 AC IV 11/01 0822 Sodium Chloride 500 ML ASDIR PRN 10/31 0830 AC IV 11/01 0822 Vancomycin HCl 0 .STK-MED ONE 10/31 0735 DC 10/31 .ROUTE 0751 Heparin Sodium 0 .STK-MED ONE 10/31 0724 DC .ROUTE Sugammadex Sodium 0 .STK-MED ONE 10/31 0715 DC IV Sodium Chloride 250 ML .STK-MED ONE 10/31 07 DC IV Heparin Sodium 0 .STK-MED ONE 10/31 07 DC .ROUTE Norepinephrine 0 .STK-MED ONE 10/31 699 DC Bitartrate IV Propofol 20 ML .STK-MED ONE 10/31 07 DC IV Rocuronium [place] 0 .STK-MED ONE 10/31 699 DC IV Heparin Sodium 0 .STK-MED ONE 10/31 0658 DC 10/31 .ROUTE 0751 Heparin Sodium/ 2,000 ML .STK-MED ONE 10/31 06 DC 10/31 Sodium Chloride IV 0751 Heparin Sodium/ 500 ML .STK-MED ONE 10/31 06 DC 10/31 Sodium Chloride IV 0751 Bupivacaine HCl 0 .STK-MED ONE 10/31 0657 DC .ROUTE Acetaminophen 0 .STK-MED ONE 10/31 642 DC .ROUTE Gabapentin 0 .STK-MED ONE 10/31 642 DC .ROUTE Lidocaine HCl 0 .STK-MED ONE 10/31 642 DC .ROUTE Acetaminophen 1,000 MG PREOP ONCALL 10/29 1145 DC PO 11/28 2359 Lactated Ringer's 1,000 ML PREOP ONCALL 10/29 1145 DC IV 11/28 2359 Lidocaine HCl 2 ML PREOP ONCALL 10/29 1145 DC LOCAL 11/28 2359 Lidocaine HCl 2 ML PREOP ONCALL 10/29 1145 DC LOCAL 11/28 2359 Sodium Chloride 500 ML PREOP ONCALL 10/29 1145 DC IV 11/28 2359 Sodium Chloride 500 ML PREOP ONCALL 10/29 1145 DC IV 11/28 2359 Sodium Chloride 1,000 ML PREOP ONCALL 10/29 1145 DC IV 11/28 2359 Sodium Chloride 5 ML ASDIR PRN 10/29 1145 AC IV 11/28 1144 Sodium Chloride 10 ML ASDIR PRN 10/29 1145 AC IV 11/28 1144 Sodium Chloride 250 ML ASDIR PRN 10/29 1145 DC IV 11/28 1144 Home Medications:ATORVASTATIN (LIPITOR) 40 MG PO BEDTIME DOXAZOSIN (CARDURA) 2 MG PO BEDTIME ASPIRIN 81 MG PO BEDTIME Dapagliflozin Propanediol (FARXIGA) 5 MG PO DAILY FUROSEMIDE (LASIX) 20 MG PO DAILY PRN EDEMA hydrALAZINE (APRESOLINE) 25 MG PO TID LISINOPRIL (ZESTRIL) 20 MG PO DAILY GABAPENTIN (NEURONTIN) 300 MG PO BEDTIME PRAMIPEXOLE DI-HCL (MIRAPEX) 0.25 MG PO TID [AREDS N2 EYES] 1 CAP PO BID CARBIDOPA/LEVODOPA (SINEMET 25/100 MG) 2 TAB PO TID SODIUM BICARBONATE 650 MG PO BID UMECLIDINIUM BRM/VILANTEROL TR (ANORO ELLIPTA 62.5-25 MCG INH) 1 PUFF INH RTDAILY AMIODARONE (PACERONE) 200 MG PO DAILY [PREVAGEN EXT STRENGT] 1 PO DAILY [BALANCE FRUIT] 3 TAB PO DAILY [BALANCE VEGGIES] 3 TAB PO DAILY [MINERALS IMMUNO 150] 3 TAB PO DAILY UBIDECARENONE (CO Q-10) (Unknown Dose) PO DAILY DOCUSATE SODIUM (COLACE) 100 MG PO DAILY I attest that the foregoing medication list in the medical record is true, accurate, and complete to the best of my knowledge. at 1658 [facility] #:[id number] OF REPORTPRProgress [id number]:06:[id number] able for patient [id number]:59:08 [facility] 2022-11-03 08:55:00 [id number] 14T08:55:00 [facility] ([facility])Cardiology Progress NoteREPORT#:[id number] REPORT STATUS: SignedDATE:11/03/22 TIME: 0855 PATIENT: ROBE RITCHIE JR UNIT #: [id number]#: [id number] [address] AGE: 77 SEX: M ATTEND: Kristina Hodge MDADM AUTHOR: Erica Vaughan NP * ALL edits or amendments must be made on the electronic/computer document * SubjectiveChief complaint:doing betterPatient reports:No: chest pain, palpitations, shortness of breath. Nursing reports:No: complaints. Comments:Pt is sitting on the edge of bed, eating breakfast.Telemetry shows atrial flutter with slow rate 40-50's, occasional heart rate dropped to 30 not sustained. Plan for pacemaker insertion on SaturdayBilateral lower leg edema. Objective GeneralVS/I O:Vital Signs: Date Time Temp Pulse Resp B/P B/P Pulse O2 O2 Flow FiO2 Mean Ox Delivery Rate 11/03 1228 97.2 47 18 115/49 70.9 94 Room air 11/03 0709 97.5 39 18 110/37 0.0 99 Room air 11/03 0501 97.5 42 16 104/65 78.0 97 Room air 11/03 0056 97.7 40 16 105/51 69.1 98 Room air 11/02 2045 Nasal 2 cannula 11/02 2033 97.7 43 16 110/49 69.7 95 Room air 11/02 1738 97.5 37 17 157/55 88.6 98 Room air PATIENT WEIGHT: Weight (lb): 220Weight (oz): 7.4Weight (kg): 100.000 Medications:Active Meds + DC'd Last 24 HrsCalcium Acetate (CALCIUM ACETATE) 667 MG C MEALS PO Ferric Sodium Gluconate Complex (FERRLECIT) 125 MG DAILY IV Sodium Chloride (SODIUM CHLORIDE 0.9%) 100 MLFurosemide (LASIX) 40 MG BID 9A 5P PO Furosemide (LASIX 40 mg/4 mL INJECTION) 40 MG Q8HR IV (DC) Docusate Sodium (COLACE) 100 MG DAILY PO Aspirin (ASPIRIN) 81 MG BEDTIME PO Atorvastatin Calcium (LIPITOR) 40 MG BEDTIME PO Gabapentin (NEURONTIN) 300 MG BEDTIME PO Insulin Human Lispro (HUMALOG) 0 AC HS SUBQ Carbidopa/Levodopa (SINEMET-25 100) 2 TAB TID PO Pramipexole Dihydrochloride (MIRAPEX) 0.25 MG TID PO Dextrose/Water (DEXTROSE 10% IN WATER) 125 ML ASDIR PRN IV (CKD) Dextrose/Water (DEXTROSE 10% IN WATER) 250 ML ASDIR PRN IV (CKD) Glucagon (GLUCAGON) 1 MG ASDIR PRN IM Sodium Chloride (SODIUM CHLORIDE 0.9%) 250 ML ASDIR PRN IV Status post:11/02 right thoracentesis drained 1.2 L Physical ExamGeneral appearance: alert, awake, oriented, no acute distress, pleasant, conversational, mental status normal, no respiratory distressHead/Eyes: atraumaticENT: moist mucosal membranesNeck: non-tender, no JVDCardiovascular: CV assessment: bradycardia, irregularly irregular, no murmurRespiratory: decreased breath sounds, no distressAbdomen: soft, non-tenderGenitourinary: no flank pain, no urinary catheterUpper extremity: UE assessment: normal temperatureLower extremity: LE assessment: edemaMusculoskeletal: normal inspectionNeuro/TUMBLER PLATER: alert, oriented X 3, normal speechSkin: dry, some erythema of BLEPsychiatry: normal affect, normal mood ResultsFindings/Data:Laboratory Tests 11/02 11/02 11/03 11/03 11/03 1735 2031 0500 0505 1225 Chemistry Sodium (134 - 147 mEq/L) 137 Potassium (3.4 - 5.0 mEq/L) 5.1 H Chloride (100 - 108 mEq/L) 103 Carbon Dioxide (21 - 33 mEq/l) 24 Anion Gap (0 - 20) 15 BUN (7 - 18 mg/dL) 70 H Creatinine (0.6 - 1.3 mg/dL) 3.4 H Glomerular Filtr Rate (70 - 80) 17.6 L Glucose (70 - 110 mg/dL) 149 H POC Glucose (70 - 110 MG/DL) 179 H 158 H 150 H 156 H Calcium (8.0 - 10.5 mg/dL) 9.1 Phosphorus (2.5 - 4.9 MG/DL) 6.1 H Magnesium (1.80 - 2.40 mg/dL) 2.10 Laboratory Tests 11/03 0505 Hematology WBC (4.5 - 11.0 x10 3/uL) 4.5 RBC (4.00 - 5.60 x10 6/uL) 3.68 L Hgb (12.5 - 16.9 g/dL) 9.1 L Hct (37.5 - 50.7 %) 30.0 L MCV (81.0 - 99.0 fL) 81.5 MCH (27.0 - 33.0 pg) 24.7 L MCHC (33.0 - 37.0 g/dL) 30.3 L RDW (11.5 - 14.5 %) 15.9 H Plt Count (150 - 400 x10 3/uL) 147 L MPV (7.0 - 9.0 fL) 10.5 H Neut % (Auto) (56.0 - 77.0 %) 62.6 Lymph % (Auto) (14.0 - 32.0 %) 19.8 [place] % (Auto) (4.8 - 9.0 %) 10.4 H Eos % (Auto) (0.3 - 3.7 %) 5.9 H Baso % (Auto) (0.0 - 2.0 %) 1.1 Neut # (Auto) (2.0 - 7.6 x10 3/uL) 2.84 Lymph # (Auto) (1.0 - 3.8 x10 3/uL) 0.90 L [place] # (Auto) (0.1 - 0.8 x10 3/uL) 0.47 Eos # (Auto) (0.0 - 0.2 x10 3/uL) 0.27 H Baso # (Auto) (0.0 - 0.2 x10 3/uL) 0.05 Abs Immat Gran (auto) (0.00 - 0.03 x10 3/uL) 0.01 Add Manual Diff NO Immature Gran % (0.0 - 2.0 %) 0.2 Nucleated RBC % (0 - 0 %) 0.0 Nucleated RBCs # (Man) (0.0 - 0.1 x10 3/uL) 0.00 Laboratory Tests 11/02 1345 Other Body Source Pleural Color YELLOW Pleural Appearance CLEAR Pleural RBC (0 - 0 Cells/uL) < 2000 H Pleural Tot WBC Counted (0 - 500 cells/uL) 221 Pleural Mesothelial RARE Pleural Polynuclear % (%) 38 Pleural Lymphocytes % (%) 31 Pleural Monocytes % (%) 26 Pleural Macrophages % (%) 5 Laboratory Tests 11/03 0505 Chemistry Magnesium (1.80 - 2.40 mg/dL) 2.10 Radiology data:Recent Impressions:ULTRASOUND - US THORACENTESIS W/IMAG 11/02 1410 Report Impression - Status: SIGNED Entered: 11/02/2022 1633 IMPRESSION: Technically successful ultrasound guided right thoracentesis. Impression By: [email or web address] - Terri Matos M.D.RADIOLOGY - XR CHEST 1 V 11/02 1415 Report Impression - Status: SIGNED Entered: 11/02/2022 1457 IMPRESSION: Decreased but persistent right lower lobe infiltrate and pleural effusion. Impression By: [email or web address] - Uriel Leon M.D. Results: labs reviewed, vital signs reviewed, vital signs stable, rhythm personally rev'd, current med profile rev'dTelemetry Interpretation:Atrial flutter Diagnosis, Assessment PlanProblem List/A P: 1. Atrial fibrillation 2. KRISTI (acute kidney injury) 3. Hx of CABG 4. Diastolic CHF Consultants: cardiology, nephrologyPlan discussed with: patient, nurse Free Text DxA P NotesFree Text DxA P Notes:77 YO male with PMHx of CAD s/p 3V CABG (2014), chronic atrial fibrillation, GI Bleed, hypertension, CKD, and Diastolic CHF. He was on chronic anticoagulation with Xarelto but developed GI bleed. He was admitted today to undergo watchman procedure. However, during the preoperative LETA he was found to have left atrial appendage thrombus so the procedure was halted, also found to have elevated creatinine, and volume overloaded 1. Chronic atrial fibrillation - slow A. fib/AFLT. Per EPS.Watchman halted due to left atrial thrombusHold Eliquis - plan PPM on Saturday.not on BB, CCB or AA d/t bradycardiacontinue telemetry - monitor for sick sinus syndromeRepeat Echo in a month to eval LA clotplan PPM on Saturday No dizziness. 2. Left atrial thrombusEliquis 2.5 mg BID - on hold for PPM on Saturday. 3. KRISTI on CKDunclear baseline kidney functioncreatinine 3.4->3.0->3.1 ->3.4Nephrology following 4. Acute on chronic diastolic CHFEcho with normal EF, mild ASBNP 295Diuresis per nephrology, currently on IV Lasix 40 mg bid 5. CAD with prior 3V CABGno BB due to bradycardiacontinue ASA and statin 6. Lower extremity edema d/t fluid overloaddiuresis per nephroLE venous doppler no DVT 7. Hypertensionnormotensivemonitor off BP medshold ACEI d/t KRISTI, no BB d/t bradycardia 8. History of GIB bleedhgb 9.2->9->9.4-> 9.1 9. CXR showed RLL opacity/pleural effusionWBC normal, no fevercould be 2/2 volume overload, on IV Lasixs/p rt thoracentesis 1.2 L (11/02)per Pulm CV stable.Cont supportive care. at 1340 at 0653 RPT #:[id number] OF REPORTPRProgress [id number]:55:[id number] able for patient [id number]:40:14 [facility] 2022-11-03 08:31:00 [id number]- 14T08:31:00 [facility] ([facility])Nephrology Progress NoteREPORT#:[id number] REPORT STATUS: SignedDATE:11/03/22 TIME: 08 PATIENT: ROBE RITCHIE UNIT #: [id number]#: [id number] [address] [birth year] AGE: 77 SEX: M ATTEND: Kristina Hodge AUTHOR: Sherly Gomes MD * ALL edits or amendments must be made on the electronic/computer document * SubjectiveChief complaint:For watchman deviceHPI:Patient seen and evaluated, discussed with care team, 77-year-old male with history of diabetes mellitus, hypertension, hyperlipidemia, chronic kidney disease followed by patient liaison in [place] and [place] who presented for watchman's device placement, however the procedure was aborted due to TTE showing atrial thrombus. His laboratories showed sodium 141, potassium 5, CO2 25, BUN 69, creatinine 3.4, glucose 107, hemoglobin 9.2, platelet 191, blood count 5.7. Patient seen post procedure in the PACU, he feels okay except for shortness of breath. Renal consult was requested for evaluation management of his elevated BUN and creatinine.Patient reports:Yes: complaints. Comments:Patient seen and evaluated, HPI no change from initial, feels okay. Review of SystemsConstitutional:Reports: fatigue. Denies: chills, fever. Skin:Denies: abrasion, bruising. Allergy/Immun:Denies: hives, itching. Eyes:Denies: redness, discharge. ENT:Denies: ear drainage, ear ringing. Respiratory:Denies: hemoptysis, SOB. Cardiovascular:Denies: chest pain. Objective GeneralVS/I O:Vital Signs: Date Time Temp Pulse Resp B/P B/P Pulse O2 O2 Flow FiO2 Mean Ox Delivery Rate 11/03 0709 36.4 39 18 110/37 0.0 99 Room air 11/03 0501 36.4 42 16 104/65 78.0 97 Room air 11/03 0056 36.5 40 16 105/51 69.1 98 Room air 11/02 2045 Nasal 2 cannula 11/02 2033 36.5 43 16 110/49 69.7 95 Room air 11/02 1738 36.4 37 17 157/55 88.6 98 Room air 11/02 1114 36.4 40 17 147/68 94.5 95 Room air 11/02 0939 36.4 44 17 106/61 76.0 93 PATIENT WEIGHT: Weight (lb): 220Weight (oz): 7.4Weight (kg): 100.000 MedicationsActive Meds + DC'd Last 24 HrsFerric Sodium Gluconate Complex (FERRLECIT) 125 MG DAILY IV Sodium Chloride (SODIUM CHLORIDE 0.9%) 100 MLFurosemide (LASIX 40 mg/4 mL INJECTION) 40 MG Q8HR IV (DC) Docusate Sodium (COLACE) 100 MG DAILY PO Aspirin (ASPIRIN) 81 MG BEDTIME PO Atorvastatin Calcium (LIPITOR) 40 MG BEDTIME PO Gabapentin (NEURONTIN) 300 MG BEDTIME PO Insulin Human Lispro (HUMALOG) 0 AC HS SUBQ Carbidopa/Levodopa (SINEMET-25 100) 2 TAB TID PO Pramipexole Dihydrochloride (MIRAPEX) 0.25 MG TID PO Dextrose/Water (DEXTROSE 10% IN WATER) 125 ML ASDIR PRN IV (CKD) Dextrose/Water (DEXTROSE 10% IN WATER) 250 ML ASDIR PRN IV (CKD) Glucagon (GLUCAGON) 1 MG ASDIR PRN IM Sodium Chloride (SODIUM CHLORIDE 0.9%) 250 ML ASDIR PRN IV Physical ExamGeneral appearance: alert, no acute distressHead/eyes: atraumatic, normocephalicENT: normal noseNeck: non-tender, supple/no meningismusCardiovascular: normal heart sounds, no rubRespiratory: aerating well, symmetric expansionAbdomen: non-tender, softGenitourinary: no flank pain, no urinary catheterExtremities: pitting edema, non-tenderMusculoskeletal: no CVA tenderness, no tendernessNeuro/TUMBLER PLATER: alert, normal speechSkin: dry, intact ResultsFindings/Data:Laboratory Tests 11/03 11/03 11/02 11/02 11/02 0505 0500 2031 1735 1111 Chemistry Sodium (134 - 147 mEq/L) 137 Potassium (3.4 - 5.0 mEq/L) 5.1 H Chloride (100 - 108 mEq/L) 103 Carbon Dioxide (21 - 33 mEq/l) 24 Anion Gap (0 - 20) 15 BUN (7 - 18 mg/dL) 70 H Creatinine (0.6 - 1.3 mg/dL) 3.4 H Glomerular Filtr Rate (70 - 80) 17.6 L Glucose (70 - 110 mg/dL) 149 H POC Glucose (70 - 110 MG/DL) 150 H 158 H 179 H 166 H Calcium (8.0 - 10.5 mg/dL) 9.1 Phosphorus (2.5 - 4.9 MG/DL) 6.1 H Magnesium (1.80 - 2.40 mg/dL) 2.10 11/02 11/02 11/02 11/01 11/01 0803 0803 0533 0509 1716 Chemistry Sodium (134 - 147 mEq/L) 138 Potassium (3.4 - 5.0 mEq/L) 4.9 Chloride (100 - 108 mEq/L) 104 Carbon Dioxide (21 - 33 mEq/l) 25 Anion Gap (0 - 20) 14 BUN (7 - 18 mg/dL) 68 H Creatinine (0.6 - 1.3 mg/dL) 3.1 H Glomerular Filtr Rate (70 - 80) 19.7 L Glucose (70 - 110 mg/dL) 119 H POC Glucose (70 - 110 MG/DL) 118 H 141 H 176 H Calcium (8.0 - 10.5 mg/dL) 9.7 Phosphorus (2.5 - 4.9 MG/DL) 4.8 Magnesium (1.80 - 2.40 mg/dL) 2.03 Iron (35 - 150 mcg/dL) 24 L TIBC (260 - 445 mcg/dL) 378 % Saturation (14 - 34 %) 6.3 L Unsat Iron Binding (mcg/dL) 354 Ferritin (23.9 - 336.2 ng/mL) 34.5 11/01 11/01 11/01 11/01 10/31 1159 0752 0752 0500 1858 Chemistry Sodium (134 - 147 mEq/L) 139 Potassium (3.4 - 5.0 mEq/L) 5.0 Chloride (100 - 108 mEq/L) 105 Carbon Dioxide (21 - 33 mEq/l) 24 Anion Gap (0 - 20) 15 BUN (7 - 18 mg/dL) 63 H Creatinine (0.6 - 1.3 mg/dL) 3.0 H Glomerular Filtr Rate (70 - 80) 20.5 L Glucose (70 - 110 mg/dL) 132 H POC Glucose (70 - 110 MG/DL) 153 H 146 H 181 H Calcium (8.0 - 10.5 mg/dL) 9.4 Phosphorus (2.5 - 4.9 MG/DL) 4.3 Magnesium (1.80 - 2.40 mg/dL) 2.17 B-Natriuretic Peptide (0 - 100 PG/ML) 295.0 H 10/31 0852 Chemistry POC Glucose (70 - 110 MG/DL) 114 H Laboratory Tests 11/03 11/02 11/01 0505 0803 0752 Hematology WBC (4.5 - 11.0 x10 3/uL) 4.5 5.1 5.4 RBC (4.00 - 5.60 x10 6/uL) 3.68 L 3.80 L 3.68 L Hgb (12.5 - 16.9 g/dL) 9.1 L 9.4 L 9.0 L Hct (37.5 - 50.7 %) 30.0 L 30.7 L 29.7 L MCV (81.0 - 99.0 fL) 81.5 80.8 L 80.7 L MCH (27.0 - 33.0 pg) 24.7 L 24.7 L 24.5 L MCHC (33.0 - 37.0 g/dL) 30.3 L 30.6 L 30.3 L RDW (11.5 - 14.5 %) 15.9 H 16.1 H 16.1 H Plt Count (150 - 400 x10 3/uL) 147 L 181 179 MPV (7.0 - 9.0 fL) 10.5 H 10.7 H 10.3 H Neut % (Auto) (56.0 - 77.0 %) 62.6 65.2 70.5 Lymph % (Auto) (14.0 - 32.0 %) 19.8 17.8 14.2 [place] % (Auto) (4.8 - 9.0 %) 10.4 H 9.5 H 7.6 Eos % (Auto) (0.3 - 3.7 %) 5.9 H 6.3 H 6.6 H Baso % (Auto) (0.0 - 2.0 %) 1.1 1.0 0.9 Neut # (Auto) (2.0 - 7.6 x10 3/uL) 2.84 3.29 3.83 Lymph # (Auto) (1.0 - 3.8 x10 3/uL) 0.90 L 0.90 L 0.77 L [place] # (Auto) (0.1 - 0.8 x10 3/uL) 0.47 0.48 0.41 Eos # (Auto) (0.0 - 0.2 x10 3/uL) 0.27 H 0.32 H 0.36 H Baso # (Auto) (0.0 - 0.2 x10 3/uL) 0.05 0.05 0.05 Abs Immat Gran (auto) (0.00 - 0.03 x10 3/uL) 0.01 0.01 0.01 Add Manual Diff NO NO NO Immature Gran % (0.0 - 2.0 %) 0.2 0.2 0.2 Nucleated RBC % (0 - 0 %) 0.0 0.0 0.0 Nucleated RBCs # (Man) (0.0 - 0.1 x10 3/uL) 0.00 0.00 0.00 Laboratory Tests 11/02 11/01 11/01 11/01 1345 1345 1345 1345 Other Body Source Pleural Color YELLOW Pleural Appearance CLEAR Pleural RBC (0 - 0 Cells/uL) < 2000 H Pleural Tot WBC Counted (0 - 500 cells/uL) 221 Pleural Mesothelial RARE Pleural Polynuclear % (%) 38 Pleural Lymphocytes % (%) 31 Pleural Monocytes % (%) 26 Pleural Macrophages % (%) 5 Pleural Total Protein (() GM/DL) 2.8 Pleural LDH (() UNITS/L) 102 Pleural Glucose (() MG/DL) 142 Recent Impressions:ULTRASOUND - DUP VEIN MARIE 11/01 1058 Report Impression - Status: SIGNED Entered: 11/01/2022 1109 IMPRESSION: No evidence of deep vein thrombosis. Impression By: Ely Leon M.D.ULTRASOUND - US RETROPERITONEAL COM 11/01 1100 Report Impression - Status: SIGNED Entered: 11/01/2022 1115 IMPRESSION: 1. No acute renal abnormality. 2. Ascites. Impression By: Ely Leon M.D.RADIOLOGY - XR CHEST 1 V 11/01 1525 Report Impression - Status: SIGNED Entered: 11/01/2022 1557 IMPRESSION: 1. Increased moderate right lower lobe pneumonia with small right pleural effusion. 2. Increased left base atelectasis/infiltrate. Impression By: [id number] - Ronald Escalante M.D.ULTRASOUND - US THORACENTESIS W/IMAG 11/02 1410 Report Impression - Status: SIGNED Entered: 11/02/2022 1633 IMPRESSION: Technically successful ultrasound guided right thoracentesis. Impression By: [email or web address] - Terri Matos M.D.RADIOLOGY - XR CHEST 1 V 11/02 1415 Report Impression - Status: SIGNED Entered: 11/02/2022 1457 IMPRESSION: Decreased but persistent right lower lobe infiltrate and pleural effusion. Impression By: [id number] - Uriel Leon M.D. Laboratory Tests 11/03 11/03 11/02 11/02 11/02 0505 0500 2031 1735 1111 Chemistry Sodium (134 - 147 mEq/L) 137 Potassium (3.4 - 5.0 mEq/L) 5.1 H Chloride (100 - 108 mEq/L) 103 Carbon Dioxide (21 - 33 mEq/l) 24 Anion Gap (0 - 20) 15 BUN (7 - 18 mg/dL) 70 H Creatinine (0.6 - 1.3 mg/dL) 3.4 H Glomerular Filtr Rate (70 - 80) 17.6 L Glucose (70 - 110 mg/dL) 149 H POC Glucose (70 - 110 MG/DL) 150 H 158 H 179 H 166 H Calcium (8.0 - 10.5 mg/dL) 9.1 Phosphorus (2.5 - 4.9 MG/DL) 6.1 H Magnesium (1.80 - 2.40 mg/dL) 2.10 Laboratory Tests 11/03 0505 Hematology WBC (4.5 - 11.0 x10 3/uL) 4.5 RBC (4.00 - 5.60 x10 6/uL) 3.68 L Hgb (12.5 - 16.9 g/dL) 9.1 L Hct (37.5 - 50.7 %) 30.0 L MCV (81.0 - 99.0 fL) 81.5 MCH (27.0 - 33.0 pg) 24.7 L MCHC (33.0 - 37.0 g/dL) 30.3 L RDW (11.5 - 14.5 %) 15.9 H Plt Count (150 - 400 x10 3/uL) 147 L MPV (7.0 - 9.0 fL) 10.5 H Neut % (Auto) (56.0 - 77.0 %) 62.6 Lymph % (Auto) (14.0 - 32.0 %) 19.8 [place] % (Auto) (4.8 - 9.0 %) 10.4 H Eos % (Auto) (0.3 - 3.7 %) 5.9 H Baso % (Auto) (0.0 - 2.0 %) 1.1 Neut # (Auto) (2.0 - 7.6 x10 3/uL) 2.84 Lymph # (Auto) (1.0 - 3.8 x10 3/uL) 0.90 L [place] # (Auto) (0.1 - 0.8 x10 3/uL) 0.47 Eos # (Auto) (0.0 - 0.2 x10 3/uL) 0.27 H Baso # (Auto) (0.0 - 0.2 x10 3/uL) 0.05 Abs Immat Gran (auto) (0.00 - 0.03 x10 3/uL) 0.01 Add Manual Diff NO Immature Gran % (0.0 - 2.0 %) 0.2 Nucleated RBC % (0 - 0 %) 0.0 Nucleated RBCs # (Man) (0.0 - 0.1 x10 3/uL) 0.00 Laboratory Tests 11/02 1345 Other Body Source Pleural Color YELLOW Pleural Appearance CLEAR Pleural RBC (0 - 0 Cells/uL) < 2000 H Pleural Tot WBC Counted (0 - 500 cells/uL) 221 Pleural Mesothelial RARE Pleural Polynuclear % (%) 38 Pleural Lymphocytes % (%) 31 Pleural Monocytes % (%) 26 Pleural Macrophages % (%) 5 Diagnosis, Assessment PlanFree Text A P:Patient seen and evaluated, discussed with care team, images and laboratories reviewed.History of hypertension: On doxazosin/hydralazine and lisinopril: We will hold lisinopril: Multiple pressure closely and adjust medications as neededHistory of diabetes mellitus: On Farxiga at, will DC due to low GFR.History of hyperlipidemiaHistory of A. fib: On amiodarone, presented for watchman's device, however LETA showed atrial thrombus, procedure was aborted and patient will receive anticoagulation with Eliquis.Anemia: Check iron studies, B12, folate and serum immunofixationChronic kidney disease: No baseline creatinine is available, his creatinine 2012was 1.5, likely has stage IV chronic kidney disease.Possible acute kidney injury component, will check urinalysis, check urine protein creatinine ratio, check renal bladder ultrasound.Shortness of breath with lower extremity edema: We will give Lasix 60 mg IV every 8 hours x3 doses.11/01/2022 laboratories this morning not done yet, will check results when available, will give 3 more doses of IV Lasix 60 mg every 8 hours. Sodium 139, potassium 5, CO2 24, BUN 63, creatinine 3 down from 3.4 improving, hemoglobin 9,platelet 179, blood count 5. laboratory this morning showed hemoglobin 9.4, platelet 181, blood count 5.1, sodium 138, potassium 4.9, CO2 25, BUN 68, creatinine 3.1 relatively stable, will give 3 more doses of IV Lasix 40 mg every 8 hours, iron saturation 6.3%, ferritin 34, will give Ferrlecit 125 mg IV daily for 8 doses11/03/2022 laboratory this morning showed sodium 137, potassium 5.1, CO2 24, BUN 70, creatinine 3.4 up from 3.1, phosphorus 6.1 we will start PhosLo 1 p.o. with each meal, hemoglobin 9.1, platelet 147, blood count 4.5, will start Lasix 40 mgp.o. twice daily, will check fecal occult blood since patient had low iron storesConsultants: cardiology, nephrology at 1008 RPT #:[id number] OF REPORTPRProgress [id number]:31:00G.[id number] able for patient [id number]:09:04 [facility] 2022-11-02 17:15:00 [id number] 13T17:15:00 [facility] ([facility])Pulmonology Progress NoteREPORT#:[id number] REPORT STATUS: SignedDATE:11/02/22 TIME: 1715 PATIENT: ,ROBE PAINTER UNIT #: [id number]#: [id number] [place] [facility] [place]OB[place] [birth year] AGE: 77 SEX: M ATTEND: Kristina Hodge Julito MDADM AUTHOR: Taylor Lowery MD * ALL edits or amendments must be made on the electronic/computer document * Review of Systems ROSConstitutional:Denies: fatigue, fever, lethargy. Respiratory:Denies: hemoptysis, pleuritic pain, pneumonia. Cardiovascular:Denies: GONZALEZ (dyspnea on exertion), palpitations, parox nocturnal dyspnea. GI:Denies: anorexia, diarrhea, hematochezia. Heme:Denies: adenopathy, bleeding, bruising, petechiae, other. Objective GeneralVS/I O:Last Documented: Result Date Time Pulse Ox 95 11/02 1114 B/P 147/68 11/02 1114 B/P Mean 94.5 11/02 1114 O2 Delivery Room air 11/02 1114 Temp 36.4 11/02 1114 Pulse 40 11/02 1114 Resp 17 11/02 1114 O2 Flow Rate 2 10/31 1449 24 hour I O ending at 0700: 11/02 0700 11/01 1900 Intake Total 550 Output Total 500 Balance -500 550 Intake, Oral 550 Output, Urine 500 PATIENT WEIGHT: Weight (lb): 231Weight (oz): 4.24Weight (kg): 104.900 Medications:Active Meds + DC'd Last 24 HrsFerric Sodium Gluconate Complex (FERRLECIT) 125 MG DAILY IV Sodium Chloride (SODIUM CHLORIDE 0.9%) 100 MLFurosemide (LASIX 40 mg/4 mL INJECTION) 40 MG Q8HR IV Docusate Sodium (COLACE) 100 MG DAILY PO Furosemide (LASIX 40 mg/4 mL INJECTION) 60 MG Q8H IV (DC) Aspirin (ASPIRIN) 81 MG BEDTIME PO Atorvastatin Calcium (LIPITOR) 40 MG BEDTIME PO Gabapentin (NEURONTIN) 300 MG BEDTIME PO Insulin Human Lispro (HUMALOG) 0 AC HS SUBQ Carbidopa/Levodopa (SINEMET-25 100) 2 TAB TID PO Pramipexole Dihydrochloride (MIRAPEX) 0.25 MG TID PO Dextrose/Water (DEXTROSE 10% IN WATER) 125 ML ASDIR PRN IV (CKD) Dextrose/Water (DEXTROSE 10% IN WATER) 250 ML ASDIR PRN IV (CKD) Glucagon (GLUCAGON) 1 MG ASDIR PRN IM Sodium Chloride (SODIUM CHLORIDE 0.9%) 250 ML ASDIR PRN IV Free Text Obj NotesFree Text Obj Notes:General appearance: alert, awake, orientedHead/Eyes: atraumatic, normocephalic, PERRLANeck: full range of motion, non-tender, normal thyroidCardiovascular: normal heart sounds, normal S1/S2, regular rate rhythmRespiratory/chest: aerating well, clear to auscultation, symmetric expansionAbdomen: soft, non-tender, normal bowel soundsGenitourinary: no bladder distention, no flank painExtremities: No edema, moves all, normal capillary refill, no calf tendernessMusculoskeletal: full range of motion, normal inspection, painless range of motion, straight leg raise negSkin: dry, intact, normal color Diagnosis, Assessment PlanFree Text A P:1. Pleural effusion#2 pulmonary edema#3 CHF exacerbation#4 CKD#5 atrial thrombosis#6 history of GI bleed Should is volume overloadedCKDLasix 40 IV every 8 hoursS/p right-sided thoracentesis removed 1200 cc of fluidChest x-ray has much improvedPlan on pacemaker placement on Saturday Quality: Gen Med Crit Care Current MedicationsCurrent medication review: Current Medications Sig/Denice Start time Last Medication Dose Route Stop Time Status Admin Docusate Sodium 100 MG DAILY 11/01 0900 AC PO 12/01 0859 Aspirin 81 MG BEDTIME 10/31 2100 AC PO 11/30 2058 Atorvastatin Calcium 40 MG BEDTIME 10/31 2100 AC PO 11/30 2058 Gabapentin 300 MG BEDTIME 10/31 2100 AC PO 11/30 205 Insulin Human Lispro 0 AC HS 10/31 1630 AC SUBQ 11/30 1629 Carbidopa/Levodopa 2 TAB TID 10/31 1500 AC PO 11/30 1459 Pramipexole 0.25 MG TID 10/31 1500 AC Dihydrochloride PO 11/30 1459 Dextrose/Water 125 ML ASDIR PRN 10/31 1200 CKD IV 11/30 1159 Dextrose/Water 250 ML ASDIR PRN 10/31 1200 CKD IV 11/30 1159 Glucagon 1 MG ASDIR PRN 10/31 1200 AC IM 11/30 1159 Furosemide 0 .STK-MED ONE 10/31 1045 DC .ROUTE Furosemide 0 .STK-MED ONE 10/31 1043 DC .ROUTE Furosemide 60 MG Q8HR 10/31 0945 AC 10/31 IV 10/31 2201 1047 Sodium Chloride 250 ML ASDIR PRN 10/31 0945 AC IV 11/30 0944 Apixaban 2.5 MG BID 10/31 09 AC PO 11/30 0859 Atropine Sulfate 0.5 MG ASDIR PRN 10/31 0830 AC IV 11/01 0822 Sodium Chloride 500 ML ASDIR PRN 10/31 0830 AC IV 11/01 0822 Vancomycin HCl 0 .STK-MED ONE 10/31 0735 DC 10/31 .ROUTE 0751 Heparin Sodium 0 .STK-MED ONE 10/31 0724 DC .ROUTE Sugammadex Sodium 0 .STK-MED ONE 10/31 0715 DC IV Sodium Chloride 250 ML .STK-MED ONE 10/31 0703 DC IV Heparin Sodium 0 .STK-MED ONE 10/31 07 DC .ROUTE Norepinephrine 0 .STK-MED ONE 10/31 07 DC Bitartrate IV Propofol 20 ML .STK-MED ONE 10/31 07 DC IV Rocuronium [place] 0 .STK-MED ONE 10/31 07 DC IV Heparin Sodium 0 .STK-MED ONE 10/31 0658 DC 10/31 .ROUTE 0751 Heparin Sodium/ 2,000 ML .STK-MED ONE 10/31 0658 DC 10/31 Sodium Chloride IV 0751 Heparin Sodium/ 500 ML .STK-MED ONE 10/31 657 DC 10/31 Sodium Chloride IV 0751 Bupivacaine HCl 0 .STK-MED ONE 10/31 0657 DC .ROUTE Acetaminophen 0 .STK-MED ONE 10/31 06 DC .ROUTE Gabapentin 0 .STK-MED ONE 10/31 642 DC .ROUTE Lidocaine HCl 0 .STK-MED ONE 10/31 642 DC .ROUTE Acetaminophen 1,000 MG PREOP ONCALL 10/29 1145 DC PO 11/28 2359 Lactated Ringer's 1,000 ML PREOP ONCALL 10/29 1145 DC IV 11/28 2359 Lidocaine HCl 2 ML PREOP ONCALL 10/29 1145 DC LOCAL 11/28 2359 Lidocaine HCl 2 ML PREOP ONCALL 10/29 1145 DC LOCAL 11/28 2359 Sodium Chloride 500 ML PREOP ONCALL 10/29 1145 DC IV 11/28 2359 Sodium Chloride 500 ML PREOP ONCALL 10/29 1145 DC IV 11/28 2359 Sodium Chloride 1,000 ML PREOP ONCALL 10/29 1145 DC IV 11/28 2359 Sodium Chloride 5 ML ASDIR PRN 10/29 1145 AC IV 11/28 1144 Sodium Chloride 10 ML ASDIR PRN 10/29 1145 AC IV 11/28 1144 Sodium Chloride 250 ML ASDIR PRN 10/29 1145 DC IV 11/28 1144 Home Medications:ATORVASTATIN (LIPITOR) 40 MG PO BEDTIME DOXAZOSIN (CARDURA) 2 MG PO BEDTIME ASPIRIN 81 MG PO BEDTIME Dapagliflozin Propanediol (FARXIGA) 5 MG PO DAILY FUROSEMIDE (LASIX) 20 MG PO DAILY PRN EDEMA hydrALAZINE (APRESOLINE) 25 MG PO TID LISINOPRIL (ZESTRIL) 20 MG PO DAILY GABAPENTIN (NEURONTIN) 300 MG PO BEDTIME PRAMIPEXOLE DI-HCL (MIRAPEX) 0.25 MG PO TID [AREDS N2 EYES] 1 CAP PO BID CARBIDOPA/LEVODOPA (SINEMET 25/100 MG) 2 TAB PO TID SODIUM BICARBONATE 650 MG PO BID UMECLIDINIUM BRM/VILANTEROL TR (ANORO ELLIPTA 62.5-25 MCG INH) 1 PUFF INH RTDAILY AMIODARONE (PACERONE) 200 MG PO DAILY [PREVAGEN EXT STRENGT] 1 PO DAILY [BALANCE FRUIT] 3 TAB PO DAILY [BALANCE VEGGIES] 3 TAB PO DAILY [MINERALS IMMUNO 150] 3 TAB PO DAILY UBIDECARENONE (CO Q-10) (Unknown Dose) PO DAILY DOCUSATE SODIUM (COLACE) 100 MG PO DAILY I attest that the foregoing medication list in the medical record is true, accurate, and complete to the best of my knowledge. at 1716 RPT #:[id number] OF REPORTPRProgress [id number]:15:00G.[id number] able for patient [id number]:16:25 [facility] 2022-11-02 16:50:00 [id number] 13T16:50:00 [facility] ([facility])Juanjose/Oncology Progress NoteREPORT#:[id number] REPORT STATUS: SignedDATE:11/02/22 TIME: 1650 PATIENT: ROBE RITCHIE JR UNIT #: [id number]#: [id number] [address] [birth year] AGE: 77 SEX: M ATTEND: Kristina Hodge MDADM AUTHOR: Carlos Alberto Barfield MD * ALL edits or amendments must be made on the electronic/computer document * SubjectiveChief Complaint:S/p Rt thoracenetesis this AM Objective Physical ExamVS:Vital Signs Date Temp Pulse Resp B/P B/P Mean Pulse Ox FiO2 11/01-11/02 36.3-36.6 40-46 16-17 96-147/56-68 69.3-94.5 93-96 Last Documented: Result Date Time Pulse Ox 95 11/02 1114 B/P 147/68 11/02 1114 B/P Mean 94.5 11/02 1114 O2 Delivery Room air 11/02 1114 Temp 36.4 11/02 1114 Pulse 40 11/02 1114 Resp 17 11/02 1114 O2 Flow Rate 2 10/31 1449 General appearance: alert, awake, orientedHEENT: anicteric, atraumaticCardiovascular: bradycardia, irregularly irregularRespiratory: crackles, decreased breath soundsAbdomen: non-tender, normal bowel sounds, softExtremities: pitting edemaNeuro/TUMBLER PLATER: alert, oriented X 3skin dry, intactPsychiatry: normal affect Current MedicationsMedications:Active Meds + DC'd Last 24 HrsFerric Sodium Gluconate Complex (FERRLECIT) 125 MG DAILY IV Sodium Chloride (SODIUM CHLORIDE 0.9%) 100 MLFurosemide (LASIX 40 mg/4 mL INJECTION) 40 MG Q8HR IV Docusate Sodium (COLACE) 100 MG DAILY PO Furosemide (LASIX 40 mg/4 mL INJECTION) 60 MG Q8H IV (DC) Aspirin (ASPIRIN) 81 MG BEDTIME PO Atorvastatin Calcium (LIPITOR) 40 MG BEDTIME PO Gabapentin (NEURONTIN) 300 MG BEDTIME PO Insulin Human Lispro (HUMALOG) 0 AC HS SUBQ Carbidopa/Levodopa (SINEMET-25 100) 2 TAB TID PO Pramipexole Dihydrochloride (MIRAPEX) 0.25 MG TID PO Dextrose/Water (DEXTROSE 10% IN WATER) 125 ML ASDIR PRN IV (CKD) Dextrose/Water (DEXTROSE 10% IN WATER) 250 ML ASDIR PRN IV (CKD) Glucagon (GLUCAGON) 1 MG ASDIR PRN IM Sodium Chloride (SODIUM CHLORIDE 0.9%) 250 ML ASDIR PRN IV ResultsFindings/Data:Laboratory Tests 11/02/22 0803:[Embedded Image Not Available]Laboratory Tests 11/02 11/02 11/02 11/02 11/01 1111 0803 0803 0533 1959 Chemistry Sodium (134 - 147 mEq/L) 138 Potassium (3.4 - 5.0 mEq/L) 4.9 Chloride (100 - 108 mEq/L) 104 Carbon Dioxide (21 - 33 mEq/l) 25 Anion Gap (0 - 20) 14 BUN (7 - 18 mg/dL) 68 H Creatinine (0.6 - 1.3 mg/dL) 3.1 H Glomerular Filtr Rate (70 - 80) 19.7 L Glucose (70 - 110 mg/dL) 119 H POC Glucose (70 - 110 MG/DL) 166 H 118 H 141 H Calcium (8.0 - 10.5 mg/dL) 9.7 Phosphorus (2.5 - 4.9 MG/DL) 4.8 Magnesium (1.80 - 2.40 mg/dL) 2.03 Iron (35 - 150 mcg/dL) 24 L TIBC (260 - 445 mcg/dL) 378 % Saturation (14 - 34 %) 6.3 L Unsat Iron Binding (mcg/dL) 354 Ferritin (23.9 - 336.2 ng/mL) 34.5 11/01 1716 Chemistry POC Glucose (70 - 110 MG/DL) 176 H Laboratory Tests 11/02 0803 Hematology WBC (4.5 - 11.0 x10 3/uL) 5.1 RBC (4.00 - 5.60 x10 6/uL) 3.80 L Hgb (12.5 - 16.9 g/dL) 9.4 L Hct (37.5 - 50.7 %) 30.7 L MCV (81.0 - 99.0 fL) 80.8 L MCH (27.0 - 33.0 pg) 24.7 L MCHC (33.0 - 37.0 g/dL) 30.6 L RDW (11.5 - 14.5 %) 16.1 H Plt Count (150 - 400 x10 3/uL) 181 MPV (7.0 - 9.0 fL) 10.7 H Neut % (Auto) (56.0 - 77.0 %) 65.2 Lymph % (Auto) (14.0 - 32.0 %) 17.8 [place] % (Auto) (4.8 - 9.0 %) 9.5 H Eos % (Auto) (0.3 - 3.7 %) 6.3 H Baso % (Auto) (0.0 - 2.0 %) 1.0 Neut # (Auto) (2.0 - 7.6 x10 3/uL) 3.29 Lymph # (Auto) (1.0 - 3.8 x10 3/uL) 0.90 L [place] # (Auto) (0.1 - 0.8 x10 3/uL) 0.48 Eos # (Auto) (0.0 - 0.2 x10 3/uL) 0.32 H Baso # (Auto) (0.0 - 0.2 x10 3/uL) 0.05 Abs Immat Gran (auto) (0.00 - 0.03 x10 3/uL) 0.01 Add Manual Diff NO Immature Gran % (0.0 - 2.0 %) 0.2 Nucleated RBC % (0 - 0 %) 0.0 Nucleated RBCs # (Man) (0.0 - 0.1 x10 3/uL) 0.00 Laboratory Tests 11/02 1345 Other Body Source Pleural Color YELLOW Pleural Appearance CLEAR Pleural RBC (0 - 0 Cells/uL) < 2000 H Pleural Tot WBC Counted (0 - 500 cells/uL) 221 Pleural Mesothelial RARE Pleural Polynuclear % (%) 38 Pleural Lymphocytes % (%) 31 Pleural Monocytes % (%) 26 Pleural Macrophages % (%) 5 Radiology data:Recent Impressions:ULTRASOUND - US THORACENTESIS W/IMAG 11/02 1410 Report Impression - Status: SIGNED Entered: 11/02/2022 1633 IMPRESSION: Technically successful ultrasound guided right thoracentesis. Impression By: [email or web address] - Terri Matos M.D.RADIOLOGY - XR CHEST 1 V 11/02 1415 Report Impression - Status: SIGNED Entered: 11/02/2022 1457 IMPRESSION: Decreased but persistent right lower lobe infiltrate and pleural effusion. Impression By: [id number] - Uriel Leon M.D. Diagnosis, Assessment PlanConsultants: cardiology, nephrology Free Text DxA P NotesFree Text DxA P Notes:ASSESSMENT:1. 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 Previous history of anticoagulation with recent GI bleed. Suspectunderlying acute iron deficiency anemia.3. Acute on chronic kidney disease.4. Acute on chronic diastolic congestive heart failure.5. History of coronary artery disease status post coronary artery bypass graft.6. Hypertension. PLAN:-Continue anticoagulation recommendations as per cardiology. Suspect leftatrial thrombus secondary to underlying atrial fibrillation. No necessity forhypercoagulable workup. Currently, started on Eliquis 2.5 mg oral twice dailygiven renal insufficiency-Iron panel with iron deficiency- ferrlecit x 8 ordered-Nephrology consultation appreciated. Creatinine 3.1 Currently receiving Lasix40 mg IV q. 8 hours-Bilateral lower extremity ultrasound to rule out deep vein thrombosis- negative-Pulm consult and f/u appreciated- s/ rt thoracentesis 1200mL removed 11/02-Other medical management as per primary team. Will follow next week, Dr. Sherron head if needed. Carlos Alberto Barfield MD at 1652 RPT #:[id number] OF REPORTPRProgress [id number]:50:00G.[id number] able for patient [id number]:53:01 [facility] 2022-11-02 15:38:00 [id number] 13T15:38:00 [facility] ([facility] Progress NoteREPORT#:[id number] REPORT STATUS: SignedDATE:11/02/22 TIME: 153 PATIENT: ROBE RITCHIE JR UNIT #: [id number]#: [id number] [address] [birth year] AGE: 77 SEX: M ATTEND: Kristina Hodge Julito MDADM AUTHOR: Wade Carey EMERGENCY MEDICAL TECHNICIAN BASIC * ALL edits or amendments must be made on the electronic/computer document * Wade Carey 11/02/22 1538:Objective GeneralVS/I OLast Documented: Result Date Time Pulse Ox 95 11/02 1114 B/P 147/68 11/02 1114 B/P Mean 94.5 11/02 1114 O2 Delivery Room air 11/02 1114 Temp 36.4 11/02 1114 Pulse 40 11/02 1114 Resp 17 11/02 1114 O2 Flow Rate 2 10/31 1449 24 hour I O ending at 0700: 11/02 0700 11/01 1900 Intake Total 550 Output Total 500 Balance -500 550 Intake, Oral 550 Output, Urine 500 PATIENT WEIGHT: Weight (lb): 231Weight (oz): 4.24Weight (kg): 104.900 Medications:Active Meds + DC'd Last 24 HrsFerric Sodium Gluconate Complex (FERRLECIT) 125 MG DAILY IV Sodium Chloride (SODIUM CHLORIDE 0.9%) 100 MLFurosemide (LASIX 40 mg/4 mL INJECTION) 40 MG Q8HR IV Docusate Sodium (COLACE) 100 MG DAILY PO Furosemide (LASIX 40 mg/4 mL INJECTION) 60 MG Q8H IV (DC) Aspirin (ASPIRIN) 81 MG BEDTIME PO Atorvastatin Calcium (LIPITOR) 40 MG BEDTIME PO Gabapentin (NEURONTIN) 300 MG BEDTIME PO Insulin Human Lispro (HUMALOG) 0 AC HS SUBQ Carbidopa/Levodopa (SINEMET-25 100) 2 TAB TID PO Pramipexole Dihydrochloride (MIRAPEX) 0.25 MG TID PO Dextrose/Water (DEXTROSE 10% IN WATER) 125 ML ASDIR PRN IV (CKD) Dextrose/Water (DEXTROSE 10% IN WATER) 250 ML ASDIR PRN IV (CKD) Glucagon (GLUCAGON) 1 MG ASDIR PRN IM Sodium Chloride (SODIUM CHLORIDE 0.9%) 250 ML ASDIR PRN IV Apixaban (ELIQUIS 2.5MG TABLET) 2.5 MG BID PO (DC) Physical ExamGeneral appearance: alert, awake, orientedCardiovascular: CV assessment: bradycardia, irregular rhythmRespiratory: on oxygen, no distressAbdomen: soft, non-tenderExtremities: moves allNeuro/TUMBLER PLATER: alert, oriented X 3Findings/Data:Laboratory Tests: 11/02 11/02 11/02 11/02 1345 1111 0803 0803 Chemistry Sodium (134 - 147 mEq/L) 138 Potassium (3.4 - 5.0 mEq/L) 4.9 Chloride (100 - 108 mEq/L) 104 Carbon Dioxide (21 - 33 mEq/l) 25 Anion Gap (0 - 20) 14 BUN (7 - 18 mg/dL) 68 H Creatinine (0.6 - 1.3 mg/dL) 3.1 H Glomerular Filtr Rate (70 - 80) 19.7 L Glucose (70 - 110 mg/dL) 119 H POC Glucose (70 - 110 MG/DL) 166 H Calcium (8.0 - 10.5 mg/dL) 9.7 Phosphorus (2.5 - 4.9 MG/DL) 4.8 Magnesium (1.80 - 2.40 mg/dL) 2.03 Iron (35 - 150 mcg/dL) 24 L TIBC (260 - 445 mcg/dL) 378 % Saturation (14 - 34 %) 6.3 L Unsat Iron Binding (mcg/dL) 354 Ferritin (23.9 - 336.2 ng/mL) 34.5 Hematology WBC (4.5 - 11.0 x10 3/uL) 5.1 RBC (4.00 - 5.60 x10 6/uL) 3.80 L Hgb (12.5 - 16.9 g/dL) 9.4 L Hct (37.5 - 50.7 %) 30.7 L MCV (81.0 - 99.0 fL) 80.8 L MCH (27.0 - 33.0 pg) 24.7 L MCHC (33.0 - 37.0 g/dL) 30.6 L RDW (11.5 - 14.5 %) 16.1 H Plt Count (150 - 400 x10 3/uL) 181 MPV (7.0 - 9.0 fL) 10.7 H Neut % (Auto) (56.0 - 77.0 %) 65.2 Lymph % (Auto) (14.0 - 32.0 %) 17.8 [place] % (Auto) (4.8 - 9.0 %) 9.5 H Eos % (Auto) (0.3 - 3.7 %) 6.3 H Baso % (Auto) (0.0 - 2.0 %) 1.0 Neut # (Auto) (2.0 - 7.6 x10 3/uL) 3.29 Lymph # (Auto) (1.0 - 3.8 x10 3/uL) 0.90 L [place] # (Auto) (0.1 - 0.8 x10 3/uL) 0.48 Eos # (Auto) (0.0 - 0.2 x10 3/uL) 0.32 H Baso # (Auto) (0.0 - 0.2 x10 3/uL) 0.05 Abs Immat Gran (auto) (0.00 - 0.03 x10 3/uL) 0.01 Add Manual Diff NO Immature Gran % (0.0 - 2.0 %) 0.2 Nucleated RBC % (0 - 0 %) 0.0 Nucleated RBCs # (Man) (0.0 - 0.1 x10 3/uL) 0.00 Other Body Source Pleural RBC (0 - 0 Cells/uL) < 2000 H Pleural Tot WBC Counted (0 - 500 cells/uL) 221 11/02 11/01 11/01 0533 1959 1716 Chemistry POC Glucose (70 - 110 MG/DL) 118 H 141 H 176 H Microbiology: Date/Time Procedure - Status Source Growth 11/02 1345 Acid Fast Bacilli Smear - RECD PLEURAL FL 11/02 1345 Acid Fast Bacilli Culture - RECD PLEURAL FL 11/02 1345 Body Fluid Culture - WKST PLEURAL [place] 11/02 1345 Anaerobic Culture - WKST PLEURAL [place] 11/02 1345 Gram Stain - WKST PLEURAL [place] 11/01 1649 Acid Fast Bacilli Smear - ORD PLEURAL FL Recent Impressions:RADIOLOGY - XR CHEST 1 V 11/02 1415 Report Impression - Status: SIGNED Entered: 11/02/2022 3993 IMPRESSION: Decreased but persistent right lower lobe infiltrate and pleural effusion. Impression By: [id number] - Uriel Leon M.D. Laboratory Tests 11/02 0803 Chemistry Magnesium (1.80 - 2.40 mg/dL) 2.03 Diagnosis, Assessment PlanFree Text A P:1. Bradycardia-currently Afib 30s-50s-no AVN-blocking meds-no reversible causes-plan for PPM implantation Saturday,11/05-09, per () 2. Afib-s/p aborted attempt for LAAO via WATCHMAN per -s/p LETA, [place] thrombus-no AA therapy-AC eliquis; d/c per pulm 3. CHF-per cardio, LVEF nml Consultants: cardiology, nephrology at 1547 at 1309 RPT #:[id number] OF REPORTPRProgress [id number]:38:00G.[id number] able for patient [id number]:47:24 [facility] 2022-11-02 10:51:00 [id number] 13T10:51:00 [facility] Hospitalist Progress NoteREPORT#:[id number] REPORT STATUS: SignedDATE:11/02/22 TIME: 1051 PATIENT: ROBE RITCHIE UNIT #: [id number]#: [id number] [address] [birth year] AGE: 77 SEX: M ATTEND: Kristina Hodge AUTHOR: Lis Benson MD * ALL edits or amendments must be made on the electronic/computer document * SubjectiveChief complaint:he feel well . no cp no sob. thorancentesis todayHPI:77 years old male with PMH of parkinson disease , CAD with CABG, afib , DM , HTNand CKD had watchman placement today . LETA show atrial thrombus . procedure was canceled . he is seen in the director of cardiac cath lab . he complaint of sob for 2 weeks . he hadinternal bleeding few weeks ago . xarelto stoped . he is on ASA. no cp no fever no cough no nausea no vomiting Review of SystemsConstitutional:Denies: generalized weakness, lethargy. Respiratory:Denies: productive cough (sputum), SOB, wheezing. Cardiovascular:Denies: chest pain, GONZALEZ (dyspnea on exertion), edema, orthopnea. GI:Denies: abdominal pain, nausea, vomiting. Neuro:Denies: dizziness. Objective GeneralVS/I O:Vital Signs: Date Time Temp Pulse Resp B/P B/P Pulse O2 O2 Flow FiO2 Mean Ox Delivery Rate 11/02 0939 36.4 44 17 106/61 76.0 93 11/02 0535 36.6 44 16 123/68 86.1 93 Room air 11/01 2349 36.4 46 16 96/56 69.3 95 Room air 11/01 2001 36.5 45 16 146/64 91.0 93 Room air 11/01 1723 36.3 42 17 126/65 85.5 96 Room air 11/01 1200 36.5 46 16 147/52 83.6 97 Room air 24 hour I O ending at 0700: 11/02 0700 11/01 1900 Intake Total 550 Output Total 500 Balance -500 550 Intake, Oral 550 Output, Urine 500 PATIENT WEIGHT: Weight (lb): 231Weight (oz): 4.24Weight (kg): 104.900 Medications:Active Meds + DC'd Last 24 HrsFerric Sodium Gluconate Complex (FERRLECIT) 125 MG DAILY IV Sodium Chloride (SODIUM CHLORIDE 0.9%) 100 MLFurosemide (LASIX 40 mg/4 mL INJECTION) 40 MG Q8HR IV Docusate Sodium (COLACE) 100 MG DAILY PO Furosemide (LASIX 40 mg/4 mL INJECTION) 60 MG Q8H IV (DC) Aspirin (ASPIRIN) 81 MG BEDTIME PO Atorvastatin Calcium (LIPITOR) 40 MG BEDTIME PO Gabapentin (NEURONTIN) 300 MG BEDTIME PO Insulin Human Lispro (HUMALOG) 0 AC HS SUBQ Carbidopa/Levodopa (SINEMET-25 100) 2 TAB TID PO Pramipexole Dihydrochloride (MIRAPEX) 0.25 MG TID PO Dextrose/Water (DEXTROSE 10% IN WATER) 125 ML ASDIR PRN IV (CKD) Dextrose/Water (DEXTROSE 10% IN WATER) 250 ML ASDIR PRN IV (CKD) Glucagon (GLUCAGON) 1 MG ASDIR PRN IM Sodium Chloride (SODIUM CHLORIDE 0.9%) 250 ML ASDIR PRN IV Physical ExamGeneral appearance: alert, awake, orientedHead/Eyes: atraumatic, normal conjunctiva/sclera, normal eyelids/periorb., normocephalicNeck: full range of motion, non-tender, no JVDCardiovascular: bradycardic, normal heart soundsRespiratory: aerating well, clear to auscultationAbdomen: non-tender, normal bowel sounds, soft, no distentionExtremities: moves all, no calf tenderness, no edemaNeuro/TUMBLER PLATER: alert, oriented X 3, CNII-XII intact, normal speech, no motor deficits, no sensory deficitsSkin: dry, intact ResultsFindings/Data:Laboratory Tests 11/02 11/02 11/02 11/02 11/01 1111 0803 0803 0533 1959 Chemistry Sodium (134 - 147 mEq/L) 138 Potassium (3.4 - 5.0 mEq/L) 4.9 Chloride (100 - 108 mEq/L) 104 Carbon Dioxide (21 - 33 mEq/l) 25 Anion Gap (0 - 20) 14 BUN (7 - 18 mg/dL) 68 H Creatinine (0.6 - 1.3 mg/dL) 3.1 H Glomerular Filtr Rate (70 - 80) 19.7 L Glucose (70 - 110 mg/dL) 119 H POC Glucose (70 - 110 MG/DL) 166 H 118 H 141 H Calcium (8.0 - 10.5 mg/dL) 9.7 Phosphorus (2.5 - 4.9 MG/DL) 4.8 Magnesium (1.80 - 2.40 mg/dL) 2.03 Iron (35 - 150 mcg/dL) 24 L TIBC (260 - 445 mcg/dL) 378 % Saturation (14 - 34 %) 6.3 L Unsat Iron Binding (mcg/dL) 354 Ferritin (23.9 - 336.2 ng/mL) 34.5 Laboratory Tests 11/02 0803 Hematology WBC (4.5 - 11.0 x10 3/uL) 5.1 RBC (4.00 - 5.60 x10 6/uL) 3.80 L Hgb (12.5 - 16.9 g/dL) 9.4 L Hct (37.5 - 50.7 %) 30.7 L MCV (81.0 - 99.0 fL) 80.8 L MCH (27.0 - 33.0 pg) 24.7 L MCHC (33.0 - 37.0 g/dL) 30.6 L RDW (11.5 - 14.5 %) 16.1 H Plt Count (150 - 400 x10 3/uL) 181 MPV (7.0 - 9.0 fL) 10.7 H Neut % (Auto) (56.0 - 77.0 %) 65.2 Lymph % (Auto) (14.0 - 32.0 %) 17.8 [place] % (Auto) (4.8 - 9.0 %) 9.5 H Eos % (Auto) (0.3 - 3.7 %) 6.3 H Baso % (Auto) (0.0 - 2.0 %) 1.0 Neut # (Auto) (2.0 - 7.6 x10 3/uL) 3.29 Lymph # (Auto) (1.0 - 3.8 x10 3/uL) 0.90 L [place] # (Auto) (0.1 - 0.8 x10 3/uL) 0.48 Eos # (Auto) (0.0 - 0.2 x10 3/uL) 0.32 H Baso # (Auto) (0.0 - 0.2 x10 3/uL) 0.05 Abs Immat Gran (auto) (0.00 - 0.03 x10 3/uL) 0.01 Add Manual Diff NO Immature Gran % (0.0 - 2.0 %) 0.2 Nucleated RBC % (0 - 0 %) 0.0 Nucleated RBCs # (Man) (0.0 - 0.1 x10 3/uL) 0.00 Laboratory Tests 11/02 1345 Other Body Source Pleural Color YELLOW Pleural Appearance CLEAR Pleural RBC (0 - 0 Cells/uL) < 2000 H Pleural Tot WBC Counted (0 - 500 cells/uL) 221 Pleural Mesothelial RARE Pleural Polynuclear % (%) 38 Pleural Lymphocytes % (%) 31 Pleural Monocytes % (%) 26 Pleural Macrophages % (%) 5 Radiology data:Recent Impressions:ULTRASOUND - US THORACENTESIS W/IMAG 11/02 1410 Report Impression - Status: SIGNED Entered: 11/02/2022 1633 IMPRESSION: Technically successful ultrasound guided right thoracentesis. Impression By: [email or web address] Agus Matos M.D.RADIOLOGY - XR CHEST 1 V 11/02 1415 Report Impression - Status: SIGNED Entered: 11/02/2022 1457 IMPRESSION: Decreased but persistent right lower lobe infiltrate and pleural effusion. Impression By: [email or web address] Agus Leon M.D. Diagnosis, Assessment PlanConsultants: cardiology, nephrology Free Text DxA P NotesFree text DxA P notes: atrial thrombus afib bradycardia DMHTNCKDparkinson's disease Hx of bleeding atrial thrombus /afib/ bradycardia tele HR -- 40 -- manage as cardiology hematology consult -- [employer] AC start eliuis now DM-- hold metformin now -- sliding scale HTN -- stop lisinopril-- due to CKD -- hold hydralazine -- monitor BP -- well control now CKD-- nephrology consult DVTP-- on eliquis 11/01- he feel well -- tele -- show HR -- 20--30 at night -- EP consult as cardiology -- BP-- stable -- continue monitor in tele 11/02- he feel well -- EP consult -- no indication for pacemaker now -- thorancentesis -- 1200 cc fluid remove afternoon -- continue monitor in tele -- home if ok with cardiology and pulmon Quality: Gen Med Crit Care Current MedicationsCurrent medication review: Current Medications Sig/Denice Start time Last Medication Dose Route Stop Time Status Admin Docusate Sodium 100 MG DAILY 11/01 0900 AC PO 12/01 0859 Aspirin 81 MG BEDTIME 10/31 2100 AC PO 11/30 2058 Atorvastatin Calcium 40 MG BEDTIME 10/31 2100 AC PO 11/30 2058 Gabapentin 300 MG BEDTIME 10/31 2100 AC PO 11/30 2058 Insulin Human Lispro 0 AC HS 10/31 1630 AC SUBQ 11/30 1629 Carbidopa/Levodopa 2 TAB TID 10/31 1500 AC PO 11/30 1459 Pramipexole 0.25 MG TID 10/31 1500 AC Dihydrochloride PO 11/30 1459 Dextrose/Water 125 ML ASDIR PRN 10/31 1200 CKD IV 11/30 1159 Dextrose/Water 250 ML ASDIR PRN 10/31 1200 CKD IV 11/30 1159 Glucagon 1 MG ASDIR PRN 10/31 1200 AC IM 11/30 1159 Furosemide 0 .STK-MED ONE 10/31 1045 DC .ROUTE Furosemide 0 .STK-MED ONE 10/31 1043 DC .ROUTE Furosemide 60 MG Q8HR 10/31 0945 AC 10/31 IV 10/31 2201 1047 Sodium Chloride 250 ML ASDIR PRN 10/31 0945 AC IV 11/30 0944 Apixaban 2.5 MG BID 10/31 0900 AC PO 11/30 0859 Atropine Sulfate 0.5 MG ASDIR PRN 10/31 0830 AC IV 11/01 0822 Sodium Chloride 500 ML ASDIR PRN 10/31 0830 AC IV 11/01 0822 Vancomycin HCl 0 .STK-MED ONE 10/31 0735 DC 10/31 .ROUTE 0751 Heparin Sodium 0 .STK-MED ONE 10/31 0724 DC .ROUTE Sugammadex Sodium 0 .STK-MED ONE 10/31 0715 DC IV Sodium Chloride 250 ML .STK-MED ONE 10/31 0703 DC IV Heparin Sodium 0 .STK-MED ONE 10/31 07 DC .ROUTE Norepinephrine 0 .STK-MED ONE 10/31 07 DC Bitartrate IV Propofol 20 ML .STK-MED ONE 10/31 0700 DC IV Rocuronium [place] 0 .STK-MED ONE 10/31 0700 DC IV Heparin Sodium 0 .STK-MED ONE 10/31 0658 DC 10/31 .ROUTE 0751 Heparin Sodium/ 2,000 ML .STK-MED ONE 10/31 0658 DC 10/31 Sodium Chloride IV 0751 Heparin Sodium/ 500 ML .STK-MED ONE 10/31 0658 DC 10/31 Sodium Chloride IV 0751 Bupivacaine HCl 0 .STK-MED ONE 10/31 0657 DC .ROUTE Acetaminophen 0 .STK-MED ONE 10/31 0643 DC .ROUTE Gabapentin 0 .STK-MED ONE 10/31 0643 DC .ROUTE Lidocaine HCl 0 .STK-MED ONE 10/31 0643 DC .ROUTE Acetaminophen 1,000 MG PREOP ONCALL 10/29 1145 DC PO 11/28 2359 Lactated Ringer's 1,000 ML PREOP ONCALL 10/29 1145 DC IV 11/28 2359 Lidocaine HCl 2 ML PREOP ONCALL 10/29 1145 DC LOCAL 11/28 2359 Lidocaine HCl 2 ML PREOP ONCALL 10/29 1145 DC LOCAL 11/28 2359 Sodium Chloride 500 ML PREOP ONCALL 10/29 1145 DC IV 11/28 2359 Sodium Chloride 500 ML PREOP ONCALL 10/29 1145 DC IV 11/28 2359 Sodium Chloride 1,000 ML PREOP ONCALL 10/29 1145 DC IV 11/28 2359 Sodium Chloride 5 ML ASDIR PRN 10/29 1145 AC IV 11/28 1144 Sodium Chloride 10 ML ASDIR PRN 10/29 1145 AC IV 11/28 1144 Sodium Chloride 250 ML ASDIR PRN 10/29 1145 DC IV 11/28 1144 Home Medications:ATORVASTATIN (LIPITOR) 40 MG PO BEDTIME DOXAZOSIN (CARDURA) 2 MG PO BEDTIME ASPIRIN 81 MG PO BEDTIME Dapagliflozin Propanediol (FARXIGA) 5 MG PO DAILY FUROSEMIDE (LASIX) 20 MG PO DAILY PRN EDEMA hydrALAZINE (APRESOLINE) 25 MG PO TID LISINOPRIL (ZESTRIL) 20 MG PO DAILY GABAPENTIN (NEURONTIN) 300 MG PO BEDTIME PRAMIPEXOLE DI-HCL (MIRAPEX) 0.25 MG PO TID [AREDS N2 EYES] 1 CAP PO BID CARBIDOPA/LEVODOPA (SINEMET 25/100 MG) 2 TAB PO TID SODIUM BICARBONATE 650 MG PO BID UMECLIDINIUM BRM/VILANTEROL TR (ANORO ELLIPTA 62.5-25 MCG INH) 1 PUFF INH RTDAILY AMIODARONE (PACERONE) 200 MG PO DAILY [PREVAGEN EXT STRENGT] 1 PO DAILY [BALANCE FRUIT] 3 TAB PO DAILY [BALANCE VEGGIES] 3 TAB PO DAILY [MINERALS IMMUNO 150] 3 TAB PO DAILY UBIDECARENONE (CO Q-10) (Unknown Dose) PO DAILY DOCUSATE SODIUM (COLACE) 100 MG PO DAILY I attest that the foregoing medication list in the medical record is true, accurate, and complete to the best of my knowledge. at 1729 RPT #:[id number] OF REPORTPRProgress [id number]:51:[id number] able for patient [id number]:29:36 [facility] 2022-11-02 08:47:00 [id number]- 13T08:47:00 [facility] ([facility])Cardiology Progress NoteREPORT#:[id number] REPORT STATUS: SignedDATE:11/02/22 TIME: 0847 PATIENT: ROBE RITCHIE UNIT #: [id number]#: [id number] [address] AGE: 77 SEX: M ATTEND: Kristina Hodge AUTHOR: Cynthia Silver AGACNP * ALL edits or amendments must be made on the electronic/computer document * SubjectiveComments:slow afib at night, HR goes up to 50-60 with activity/ambulation Objective GeneralVS/I O:24 hour I O ending at 0700: 11/02 0700 11/01 1900 Intake Total 550 Output Total 500 Balance -500 550 Intake, Oral 550 Output, Urine 500 Vital Signs: Date Time Temp Pulse Resp B/P B/P Pulse O2 O2 Flow FiO2 Mean Ox Delivery Rate 11/02 0535 36.6 44 16 123/68 86.1 93 Room air 11/01 2349 36.4 46 16 96/56 69.3 95 Room air 11/01 2001 36.5 45 16 146/64 91.0 93 Room air 11/01 1723 36.3 42 17 126/65 85.5 96 Room air 11/01 1200 36.5 46 16 147/52 83.6 97 Room air PATIENT WEIGHT: Weight (lb): 231Weight (oz): 4.24Weight (kg): 104.900 Medications:Active Meds + DC'd Last 24 HrsDocusate Sodium (COLACE) 100 MG DAILY PO Furosemide (LASIX 40 mg/4 mL INJECTION) 60 MG Q8H IV (DC) Aspirin (ASPIRIN) 81 MG BEDTIME PO Atorvastatin Calcium (LIPITOR) 40 MG BEDTIME PO Gabapentin (NEURONTIN) 300 MG BEDTIME PO Insulin Human Lispro (HUMALOG) 0 AC HS SUBQ Carbidopa/Levodopa (SINEMET-25 100) 2 TAB TID PO Pramipexole Dihydrochloride (MIRAPEX) 0.25 MG TID PO Dextrose/Water (DEXTROSE 10% IN WATER) 125 ML ASDIR PRN IV (CKD) Dextrose/Water (DEXTROSE 10% IN WATER) 250 ML ASDIR PRN IV (CKD) Glucagon (GLUCAGON) 1 MG ASDIR PRN IM Sodium Chloride (SODIUM CHLORIDE 0.9%) 250 ML ASDIR PRN IV Apixaban (ELIQUIS 2.5MG TABLET) 2.5 MG BID PO (DC) Physical ExamGeneral appearance: obese, alert, awake, oriented, no acute distressNeck: non-tender, no JVDCardiovascular: CV assessment: bradycardia, irregular rhythmRespiratory: decreased breath sounds, no distressAbdomen: soft, non-tenderGenitourinary: no flank pain, no urinary catheterLower extremity: LE assessment: edemaMusculoskeletal: normal inspectionNeuro/TUMBLER PLATER: alert, oriented X 3, normal speechSkin: dry, some erythema of BLEPsychiatry: normal affect, normal mood ResultsFindings/Data:Laboratory Tests 11/02 11/01 11/01 11/01 0533 1959 1716 1159 Chemistry POC Glucose (70 - 110 MG/DL) 118 H 141 H 176 H 153 H Laboratory Tests 11/02/22 0803:[Embedded Image Not Available] 11/01/22 0752:[Embedded Image Not Available] Radiology data:Recent Impressions:ULTRASOUND - DUP VEIN MARIE 11/01 1058 Report Impression - Status: SIGNED Entered: 11/01/2022 1109 IMPRESSION: No evidence of deep vein thrombosis. Impression By: Ely Leon M.D.ULTRASOUND - US RETROPERITONEAL COM 11/01 1100 Report Impression - Status: SIGNED Entered: 11/01/2022 1115 IMPRESSION: 1. No acute renal abnormality. 2. Ascites. Impression By: Ely Leon M.D.RADIOLOGY - XR CHEST 1 V 11/01 1525 Report Impression - Status: SIGNED Entered: 11/01/2022 3469 IMPRESSION: 1. Increased moderate right lower lobe pneumonia with small right pleural effusion. 2. Increased left base atelectasis/infiltrate. Impression By: [email or web address] - Ronald Escalante M.D. Results: labs reviewed, vital signs reviewedTelemetry Interpretation:slow atrial fibrillation Diagnosis, Assessment PlanProblem List/A P: 1. Atrial fibrillation 2. KRISTI (acute kidney injury) 3. Hx of CABG 4. Diastolic CHF Plan discussed with: patient, consultants (EP CLOTH HANDLER), nurse Free Text DxA P NotesFree Text DxA P Notes:77 YO male with PMHx of CAD s/p 3V CABG (2014), chronic atrial fibrillation, GI Bleed, hypertension, CKD, and Diastolic CHF. He was on chronic anticoagulation with Xarelto but developed GI bleed. He was admitted today to undergo watchman procedure. However, during the preoperative LETA he was found to have left atrial appendage thrombus so the procedure was halted, also found to have elevated creatinine, and volume overloaded 1. Chronic atrial fibrillation - slow A. fibWatchman halted due to left atrial thrombuscontinue Eliquis 2.5 mg twice a dayHold amiodarone due to bradycardianot on BB or CCB therapycontinue telemetry - monitor for sick sinus syndromeRepeat Echo in a month to eval LA clotEP consult for slow afib - EP did not recommend PPM at this timewalked patient out of the room for several feet and HR goes up to 50-60s with stable blood pressure 2. Left atrial thrombusEliquis 2.5 mg BID - on hold in prep for thoracentesis 3. KRISTI on CKDunclear baseline kidney functioncreatinine 3.4->3.0->3.1 Nephrology following 4. Acute on chronic diastolic CHFEcho with normal EF, mild ASBNP 295Diuresis per nephrology, currently on IV Lasix 40 mg Q8H 5. CAD with prior 3V CABGno BB due to bradycardiacontinue ASA and statin 6. Lower extremity edema d/t fluid overloadon IV lasixLE venous doppler no DVT 7. Hypertensionnormotensivemonitor off BP medshold ACEI d/t KRISTI, no BB d/t bradycardia 8. History of GIB bleedhgb 9.2->9->9.4 9. CXR showed RLL opacity/pleural effusionWBC normal, no fevercould be 2/2 volume overload, on IV LasixPulmo following with planned for thoracentesis at 1100 at 2338 RPT #:[id number] OF REPORTPRProgress [id number]:[id number] able for patient [id number]:00:24 [facility] 2022-11-02 06:42:00 [id number] 13T06:42:00 [facility] ([facility])Nephrology Progress NoteREPORT#:[id number] REPORT STATUS: SignedDATE:11/02/22 TIME: 0642 PATIENT: ROBE RITCHIE UNIT #: [id number]#: [id number] [address] AGE: 77 SEX: M ATTEND: Kristina Hodge AUTHOR: Sherly Gomes MD * ALL edits or amendments must be made on the electronic/computer document * SubjectiveChief complaint:For watchman deviceHPI:Patient seen and evaluated, discussed with care team, 77-year-old male with history of diabetes mellitus, hypertension, hyperlipidemia, chronic kidney disease followed by patient liaison in [place] who presented for watchman's device placement, however the procedure was aborted due to TTE showing atrial thrombus. His laboratories showed sodium 141, potassium 5, CO2 25, BUN 69, creatinine 3.4, glucose 107, hemoglobin 9.2, platelet 191, blood count 5.7. Patient seen post procedure in the PACU, he feels okay except for shortness of breath. Renal consult was requested for evaluation management of his elevated BUN and creatinine.Patient reports:Yes: complaints. Comments:Patient seen and evaluated, HPI no change from initial, feels okay. Review of SystemsConstitutional:Reports: fatigue. Denies: chills, fever. Skin:Denies: abrasion, bruising. Allergy/Immun:Denies: hives, itching. Eyes:Denies: redness, discharge. ENT:Denies: ear drainage, ear ringing. Respiratory:Denies: hemoptysis, SOB. Cardiovascular:Denies: chest pain. Objective GeneralVS/I O:Vital Signs: Date Time Temp Pulse Resp B/P B/P Pulse O2 O2 Flow FiO2 Mean Ox Delivery Rate 11/02 0535 36.6 44 16 123/68 86.1 93 Room air 11/01 2349 36.4 46 16 96/56 69.3 95 Room air 11/01 2001 36.5 45 16 146/64 91.0 93 Room air 11/01 1723 36.3 42 17 126/65 85.5 96 Room air 11/01 1200 36.5 46 16 147/52 83.6 97 Room air 11/01 0811 36.6 50 17 165/68 100.6 92 Room air 24 hour I O ending at 0700: 11/02 0700 11/01 1900 Intake Total 550 Output Total 500 Balance -500 550 Intake, Oral 550 Output, Urine 500 PATIENT WEIGHT: Weight (lb): 231Weight (oz): 4.24Weight (kg): 104.900 MedicationsActive Meds + DC'd Last 24 HrsDocusate Sodium (COLACE) 100 MG DAILY PO Furosemide (LASIX 40 mg/4 mL INJECTION) 60 MG Q8H IV (DC) Aspirin (ASPIRIN) 81 MG BEDTIME PO Atorvastatin Calcium (LIPITOR) 40 MG BEDTIME PO Gabapentin (NEURONTIN) 300 MG BEDTIME PO Insulin Human Lispro (HUMALOG) 0 AC HS SUBQ Carbidopa/Levodopa (SINEMET-25 100) 2 TAB TID PO Pramipexole Dihydrochloride (MIRAPEX) 0.25 MG TID PO Dextrose/Water (DEXTROSE 10% IN WATER) 125 ML ASDIR PRN IV (CKD) Dextrose/Water (DEXTROSE 10% IN WATER) 250 ML ASDIR PRN IV (CKD) Glucagon (GLUCAGON) 1 MG ASDIR PRN IM Sodium Chloride (SODIUM CHLORIDE 0.9%) 250 ML ASDIR PRN IV Apixaban (ELIQUIS 2.5MG TABLET) 2.5 MG BID PO (DC) Atropine Sulfate (ATROPINE SULFATE 0.1MG/ML SYR) 0.5 MG ASDIR PRN IV (DC) Sodium Chloride (SODIUM CHLORIDE 0.9%) 500 ML ASDIR PRN IV (DC) Physical ExamGeneral appearance: alert, no acute distressHead/eyes: atraumatic, normocephalicENT: normal noseNeck: non-tender, supple/no meningismusCardiovascular: normal heart sounds, no rubRespiratory: aerating well, symmetric expansionAbdomen: non-tender, softGenitourinary: no flank pain, no urinary catheterExtremities: pitting edema, non-tenderMusculoskeletal: no CVA tenderness, no tendernessNeuro/TUMBLER PLATER: alert, normal speechSkin: dry, intact ResultsFindings/Data:Laboratory Tests 11/02 11/01 11/01 11/01 11/01 0533 1959 1716 1159 0752 Chemistry POC Glucose (70 - 110 MG/DL) 118 H 141 H 176 H 153 H B-Natriuretic Peptide (0 - 100 PG/ML) 295.0 H 11/01 11/01 10/31 10/31 10/31 0752 0500 1858 0852 0632 Chemistry Sodium (134 - 147 mEq/L) 139 Potassium (3.4 - 5.0 mEq/L) 5.0 Chloride (100 - 108 mEq/L) 105 Carbon Dioxide (21 - 33 mEq/l) 24 Anion Gap (0 - 20) 15 BUN (7 - 18 mg/dL) 63 H Creatinine (0.6 - 1.3 mg/dL) 3.0 H Glomerular Filtr Rate (70 - 80) 20.5 L Glucose (70 - 110 mg/dL) 132 H POC Glucose (70 - 110 MG/DL) 146 H 181 H 114 H 123 H Calcium (8.0 - 10.5 mg/dL) 9.4 Phosphorus (2.5 - 4.9 MG/DL) 4.3 Magnesium (1.80 - 2.40 mg/dL) 2.17 Laboratory Tests 11/01 0752 Hematology WBC (4.5 - 11.0 x10 3/uL) 5.4 RBC (4.00 - 5.60 x10 6/uL) 3.68 L Hgb (12.5 - 16.9 g/dL) 9.0 L Hct (37.5 - 50.7 %) 29.7 L MCV (81.0 - 99.0 fL) 80.7 L MCH (27.0 - 33.0 pg) 24.5 L MCHC (33.0 - 37.0 g/dL) 30.3 L RDW (11.5 - 14.5 %) 16.1 H Plt Count (150 - 400 x10 3/uL) 179 MPV (7.0 - 9.0 fL) 10.3 H Neut % (Auto) (56.0 - 77.0 %) 70.5 Lymph % (Auto) (14.0 - 32.0 %) 14.2 [place] % (Auto) (4.8 - 9.0 %) 7.6 Eos % (Auto) (0.3 - 3.7 %) 6.6 H Baso % (Auto) (0.0 - 2.0 %) 0.9 Neut # (Auto) (2.0 - 7.6 x10 3/uL) 3.83 Lymph # (Auto) (1.0 - 3.8 x10 3/uL) 0.77 L [place] # (Auto) (0.1 - 0.8 x10 3/uL) 0.41 Eos # (Auto) (0.0 - 0.2 x10 3/uL) 0.36 H Baso # (Auto) (0.0 - 0.2 x10 3/uL) 0.05 Abs Immat Gran (auto) (0.00 - 0.03 x10 3/uL) 0.01 Add Manual Diff NO Immature Gran % (0.0 - 2.0 %) 0.2 Nucleated RBC % (0 - 0 %) 0.0 Nucleated RBCs # (Man) (0.0 - 0.1 x10 3/uL) 0.00 Recent Impressions:ULTRASOUND - DUP VEIN MARIE 11/01 1058 Report Impression - Status: SIGNED Entered: 11/01/2022 1109 IMPRESSION: No evidence of deep vein thrombosis. Impression By: [email or web address] - Uriel Leon M.D.ULTRASOUND - US RETROPERITONEAL COM 11/01 1100 Report Impression - Status: SIGNED Entered: 11/01/2022 1115 IMPRESSION: 1. No acute renal abnormality. 2. Ascites. Impression By: [email or web address] - Uriel Leon M.D.RADIOLOGY - XR CHEST 1 V 11/01 1525 Report Impression - Status: SIGNED Entered: 11/01/2022 0296 IMPRESSION: 1. Increased moderate right lower lobe pneumonia with small right pleural effusion. 2. Increased left base atelectasis/infiltrate. Impression By: [email or web address] - Ronald Escalante M.D. Laboratory Tests 11/02 11/01 11/01 11/01 11/01 0533 1959 1716 1159 0752Chemistry POC Glucose (70 - 110 MG/DL) 118 H 141 H 176 H 153 H B-Natriuretic Peptide (0 - 100 295.0 HPG/ML) 11/01 751 Chemistry Sodium (134 - 147 mEq/L) 139 Potassium (3.4 - 5.0 mEq/L) 5.0 Chloride (100 - 108 mEq/L) 105 Carbon Dioxide (21 - 33 mEq/l) 24 Anion Gap (0 - 20) 15 BUN (7 - 18 mg/dL) 63 H Creatinine (0.6 - 1.3 mg/dL) 3.0 H Glomerular Filtr Rate (70 - 80) 20.5 L Glucose (70 - 110 mg/dL) 132 H Calcium (8.0 - 10.5 mg/dL) 9.4 Phosphorus (2.5 - 4.9 MG/DL) 4.3 Magnesium (1.80 - 2.40 mg/dL) 2.17 Laboratory Tests 11/01 751 Hematology WBC (4.5 - 11.0 x10 3/uL) 5.4 RBC (4.00 - 5.60 x10 6/uL) 3.68 L Hgb (12.5 - 16.9 g/dL) 9.0 L Hct (37.5 - 50.7 %) 29.7 L MCV (81.0 - 99.0 fL) 80.7 L MCH (27.0 - 33.0 pg) 24.5 L MCHC (33.0 - 37.0 g/dL) 30.3 L RDW (11.5 - 14.5 %) 16.1 H Plt Count (150 - 400 x10 3/uL) 179 MPV (7.0 - 9.0 fL) 10.3 H Neut % (Auto) (56.0 - 77.0 %) 70.5 Lymph % (Auto) (14.0 - 32.0 %) 14.2 [place] % (Auto) (4.8 - 9.0 %) 7.6 Eos % (Auto) (0.3 - 3.7 %) 6.6 H Baso % (Auto) (0.0 - 2.0 %) 0.9 Neut # (Auto) (2.0 - 7.6 x10 3/uL) 3.83 Lymph # (Auto) (1.0 - 3.8 x10 3/uL) 0.77 L [place] # (Auto) (0.1 - 0.8 x10 3/uL) 0.41 Eos # (Auto) (0.0 - 0.2 x10 3/uL) 0.36 H Baso # (Auto) (0.0 - 0.2 x10 3/uL) 0.05 Abs Immat Gran (auto) (0.00 - 0.03 x10 3/uL) 0.01 Add Manual Diff NO Immature Gran % (0.0 - 2.0 %) 0.2 Nucleated RBC % (0 - 0 %) 0.0 Nucleated RBCs # (Man) (0.0 - 0.1 x10 3/uL) 0.00 Diagnosis, Assessment PlanFree Text A P:Patient seen and evaluated, discussed with care team, images and laboratories reviewed.History of hypertension: On doxazosin/hydralazine and lisinopril: We will hold lisinopril: Multiple pressure closely and adjust medications as neededHistory of diabetes mellitus: On Farxiga at, will DC due to low GFR.History of hyperlipidemiaHistory of A. 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 Sodium 139, potassium 5, CO2 24, BUN 63, creatinine 3 down from 3.4 improving, hemoglobin 9,platelet 179, blood count 5. laboratory this morning showed hemoglobin 9.4, platelet 181, blood count 5.1, sodium 138, potassium 4.9, CO2 25, BUN 68, creatinine 3.1 relatively stable, will give 3 more doses of IV Lasix 40 mg every 8 hours, iron saturation 6.3%, ferritin 34, will give Ferrlecit 125 mg IV daily for 8 dosesConsultants: cardiology, nephrology at 1012 RPT #:[id number] OF REPORTPRProgress [id number]:42:[id number] able for patient [id number]:12:56 [facility] 2022-11-01 17:50:00 [id number] 12T17:50:00 [facility] ([facility])Juanjose/Oncology Progress NoteREPORT#:[id number] REPORT STATUS: SignedDATE:11/01/22 TIME: 1750 PATIENT: ROBE RITCHIE UNIT #: [id number]#: [id number] [address] [birth year] AGE: 77 SEX: M ATTEND: Kristina Hodge MDADM AUTHOR: Carlos Alberto Barfield MD * ALL edits or amendments must be made on the electronic/computer document * SubjectiveChief Complaint:Some improvement in breathing with diuresis- seen by cardio and pulmonary Objective Physical ExamVS:Vital SignsDate Temp Pulse Resp B/P B/P Mean Pulse Ox DyY602/-11/01 36.3-36.6 42-53 16-17 108-165/42-71 64.2-100.6 92-97 Last Documented: Result Date Time Pulse Ox 96 11/01 1723 B/P 126/65 11/01 1723 B/P Mean 85.5 11/01 1723 O2 Delivery Room air 11/01 1723 Temp 36.3 11/01 1723 Pulse 42 11/01 1723 Resp 17 11/01 1723 O2 Flow Rate 2 10/31 1449 General appearance: alert, awake, orientedHEENT: anicteric, atraumaticCardiovascular: bradycardia, irregularly irregularRespiratory: crackles, decreased breath soundsAbdomen: non-tender, normal bowel sounds, softExtremities: pitting edemaNeuro/TUMBLER PLATER: alert, oriented X 3skin dry, intactPsychiatry: normal affect Current MedicationsMedications:Active Meds + DC'd Last 24 HrsDocusate Sodium (COLACE) 100 MG DAILY PO Furosemide (LASIX 40 mg/4 mL INJECTION) 60 MG Q8H IV Aspirin (ASPIRIN) 81 MG BEDTIME PO Atorvastatin Calcium (LIPITOR) 40 MG BEDTIME PO Gabapentin (NEURONTIN) 300 MG BEDTIME PO Insulin Human Lispro (HUMALOG) 0 AC HS SUBQ Carbidopa/Levodopa (SINEMET-25 100) 2 TAB TID PO Pramipexole Dihydrochloride (MIRAPEX) 0.25 MG TID PO Dextrose/Water (DEXTROSE 10% IN WATER) 125 ML ASDIR PRN IV (CKD) Dextrose/Water (DEXTROSE 10% IN WATER) 250 ML ASDIR PRN IV (CKD) Glucagon (GLUCAGON) 1 MG ASDIR PRN IM Furosemide (LASIX 40 mg/4 mL INJECTION) 60 MG Q8HR IV (DC) Sodium Chloride (SODIUM CHLORIDE 0.9%) 250 ML ASDIR PRN IV Apixaban (ELIQUIS 2.5MG TABLET) 2.5 MG BID PO (DC) Atropine Sulfate (ATROPINE SULFATE 0.1MG/ML SYR) 0.5 MG ASDIR PRN IV (DC) Sodium Chloride (SODIUM CHLORIDE 0.9%) 500 ML ASDIR PRN IV (DC) ResultsFindings/Data:Laboratory Tests 11/01/22 0752:[Embedded Image Not Available]Laboratory Tests 11/01 11/01 11/01 11/01 11/01 1716 1159 0752 0752 0500 Chemistry Sodium (134 - 147 mEq/L) 139 Potassium (3.4 - 5.0 mEq/L) 5.0 Chloride (100 - 108 mEq/L) 105 Carbon Dioxide (21 - 33 mEq/l) 24 Anion Gap (0 - 20) 15 BUN (7 - 18 mg/dL) 63 H Creatinine (0.6 - 1.3 mg/dL) 3.0 H Glomerular Filtr Rate (70 - 80) 20.5 L Glucose (70 - 110 mg/dL) 132 H POC Glucose (70 - 110 MG/DL) 176 H 153 H 146 H Calcium (8.0 - 10.5 mg/dL) 9.4 Phosphorus (2.5 - 4.9 MG/DL) 4.3 Magnesium (1.80 - 2.40 mg/dL) 2.17 B-Natriuretic Peptide (0 - 100 PG/ML) 295.0 H 10/31 1858 Chemistry POC Glucose (70 - 110 MG/DL) 181 H Laboratory Tests 11/01 0752 Hematology WBC (4.5 - 11.0 x10 3/uL) 5.4 RBC (4.00 - 5.60 x10 6/uL) 3.68 L Hgb (12.5 - 16.9 g/dL) 9.0 L Hct (37.5 - 50.7 %) 29.7 L MCV (81.0 - 99.0 fL) 80.7 L MCH (27.0 - 33.0 pg) 24.5 L MCHC (33.0 - 37.0 g/dL) 30.3 L RDW (11.5 - 14.5 %) 16.1 H Plt Count (150 - 400 x10 3/uL) 179 MPV (7.0 - 9.0 fL) 10.3 H Neut % (Auto) (56.0 - 77.0 %) 70.5 Lymph % (Auto) (14.0 - 32.0 %) 14.2 [place] % (Auto) (4.8 - 9.0 %) 7.6 Eos % (Auto) (0.3 - 3.7 %) 6.6 H Baso % (Auto) (0.0 - 2.0 %) 0.9 Neut # (Auto) (2.0 - 7.6 x10 3/uL) 3.83 Lymph # (Auto) (1.0 - 3.8 x10 3/uL) 0.77 L [place] # (Auto) (0.1 - 0.8 x10 3/uL) 0.41 Eos # (Auto) (0.0 - 0.2 x10 3/uL) 0.36 H Baso # (Auto) (0.0 - 0.2 x10 3/uL) 0.05 Abs Immat Gran (auto) (0.00 - 0.03 x10 3/uL) 0.01 Add Manual Diff NO Immature Gran % (0.0 - 2.0 %) 0.2 Nucleated RBC % (0 - 0 %) 0.0 Nucleated RBCs # (Man) (0.0 - 0.1 x10 3/uL) 0.00 Radiology data:Recent Impressions:ULTRASOUND - DUP VEIN MARIE 11/01 1058 Report Impression - Status: SIGNED Entered: 11/01/2022 1109 IMPRESSION: No evidence of deep vein thrombosis. Impression By: Ely Leon M.D.ULTRASOUND - US RETROPERITONEAL COM 11/01 1100 Report Impression - Status: SIGNED Entered: 11/01/2022 1115 IMPRESSION: 1. No acute renal abnormality. 2. Ascites. Impression By: Ely Leon M.D.RADIOLOGY - XR CHEST 1 V 11/01 1525 Report Impression - Status: SIGNED Entered: 11/01/2022 1557 IMPRESSION: 1. Increased moderate right lower lobe pneumonia with small right pleural effusion. 2. Increased left base atelectasis/infiltrate. Impression By: [email or web address] - Ronald Escalante M.D. Diagnosis, Assessment PlanConsultants: cardiology, nephrology Free Text DxA P NotesFree Text DxA P Notes:ASSESSMENT:1. 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 Previous history of anticoagulation with recent GI bleed. Suspectunderlying acute iron deficiency anemia.3. Acute on chronic kidney disease.4. Acute on chronic diastolic congestive heart failure.5. History of coronary artery disease status post coronary artery bypass graft.6. Hypertension. PLAN:-Continue anticoagulation recommendations as per cardiology. Suspect leftatrial thrombus secondary to underlying atrial fibrillation. No necessity forhypercoagulable workup. Currently, started on Eliquis 2.5 mg oral twice dailygiven renal insufficiency- on hold tonight for thoracenetesis by IR in AM-Check iron panel/ferritin. Can provide parenteral iron if need be.-Nephrology consultation appreciated. Creatinine elevated 3.4, baselineunknown. Currently receiving Lasix 60 mg IV q. 8 hours- creatinine today 3-Bilateral lower extremity ultrasound to rule out deep vein thrombosis- negative-Pulm consult and f/u appreciated-Other medical management as per primary team. Carlos Alberto Barfield MD at 1753 RPT #:[id number] OF REPORTPRProgress [id number]:50:[id number] able for patient [id number]:53:34 [facility] 2022-11-01 16:49:00 [id number] 12T16:49:00 [facility] ([facility])Pulmonology Progress NoteREPORT#:[id number] REPORT STATUS: SignedDATE:11/01/22 TIME: 164 PATIENT: ROBE RITCHIE UNIT #: [id number]#: [id number] [address] [birth year] AGE: 77 SEX: M ATTEND: Kristina Hodge AUTHOR: Taylor Lowery MD * ALL edits or amendments must be made on the electronic/computer document * Review of Systems ROSConstitutional:Denies: fatigue, fever, lethargy. Respiratory:Denies: hemoptysis, pleuritic pain, pneumonia. Cardiovascular:Denies: GONZALEZ (dyspnea on exertion), palpitations, parox nocturnal dyspnea. GI:Denies: anorexia, diarrhea, hematochezia. Heme:Denies: adenopathy, bleeding, bruising, petechiae, other. Objective GeneralVS/I O:Last Documented: Result Date Time Pulse Ox 97 11/01 1200 B/P 147/52 11/01 1200 B/P Mean 83.6 11/01 1200 O2 Delivery Room air 11/01 1200 Temp 36.5 11/01 1200 Pulse 46 11/01 1200 Resp 16 11/01 1200 O2 Flow Rate 2 10/31 1449 24 hour I O ending at 0700: 11/01 0700 10/31 1900 Intake Total 500 Output Total 390 400 Balance 110 -400 Intake, Oral 500 Output, Urine 390 400 PATIENT WEIGHT: Weight (lb): 231Weight (oz): 4.24Weight (kg): 104.900 Medications:Active Meds + DC'd Last 24 HrsDocusate Sodium (COLACE) 100 MG DAILY PO Furosemide (LASIX 40 mg/4 mL INJECTION) 60 MG Q8H IV Aspirin (ASPIRIN) 81 MG BEDTIME PO Atorvastatin Calcium (LIPITOR) 40 MG BEDTIME PO Gabapentin (NEURONTIN) 300 MG BEDTIME PO Insulin Human Lispro (HUMALOG) 0 AC HS SUBQ Carbidopa/Levodopa (SINEMET-25 100) 2 TAB TID PO Pramipexole Dihydrochloride (MIRAPEX) 0.25 MG TID PO Dextrose/Water (DEXTROSE 10% IN WATER) 125 ML ASDIR PRN IV (CKD) Dextrose/Water (DEXTROSE 10% IN WATER) 250 ML ASDIR PRN IV (CKD) Glucagon (GLUCAGON) 1 MG ASDIR PRN IM Furosemide (LASIX 40 mg/4 mL INJECTION) 60 MG Q8HR IV (DC) Sodium Chloride (SODIUM CHLORIDE 0.9%) 250 ML ASDIR PRN IV Apixaban (ELIQUIS 2.5MG TABLET) 2.5 MG BID PO (DCr) Atropine Sulfate (ATROPINE SULFATE 0.1MG/ML SYR) 0.5 MG ASDIR PRN IV (DC) Sodium Chloride (SODIUM CHLORIDE 0.9%) 500 ML ASDIR PRN IV (DC) Free Text Obj NotesFree Text Obj Notes:General appearance: alert, awake, orientedHead/Eyes: atraumatic, normocephalic, PERRLANeck: full range of motion, non-tender, normal thyroidCardiovascular: normal heart sounds, normal S1/S2, regular rate rhythmRespiratory/chest: aerating well, clear to auscultation, symmetric expansionAbdomen: soft, non-tender, normal bowel soundsGenitourinary: no bladder distention, no flank painExtremities: No edema, moves all, normal capillary refill, no calf tendernessMusculoskeletal: full range of motion, normal inspection, painless range of motion, straight leg raise negSkin: dry, intact, normal color Diagnosis, Assessment PlanFree Text A P:1. Pleural effusion#2 pulmonary edema#3 CHF exacerbation#4 CKD#5 atrial thrombosis#6 history of GI bleed Patient presented for watchman procedure LETA revealed atrial thrombosis, the procedure was canceledHe is in CHF exacerbation with volume overload status, secondary to CKD as wellChest x-ray showed right-sided pleural effusion with atelectasis,There is bilateral infiltrates most consistent with pulm edemaPneumonia is unlikely he has no respiratory symptoms to suggest pneumonia and hehas no fever, no leukocytosis or left shift Has been on diuresis with clinical improvementChest x-ray has slightly improved, still with right-sided pleural effusionStop EliquisUltrasound-guided thoracentesis tomorrow morning by IR Quality: Gen Med Crit Care Current MedicationsCurrent medication review: Current Medications Sig/Denice Start time Last Medication Dose Route Stop Time Status Admin Docusate Sodium 100 MG DAILY 11/01 0900 AC PO 12/01 0859 Aspirin 81 MG BEDTIME 10/31 2100 AC PO 11/30 205 Atorvastatin Calcium 40 MG BEDTIME 10/31 2100 AC PO 11/30 205 Gabapentin 300 MG BEDTIME 10/31 2100 AC PO 11/30 205 Insulin Human Lispro 0 AC HS 10/31 1630 AC SUBQ 11/30 1629 Carbidopa/Levodopa 2 TAB TID 10/31 1500 AC PO 11/30 1459 Pramipexole 0.25 MG TID 10/31 1500 AC Dihydrochloride PO 11/30 1459 Dextrose/Water 125 ML ASDIR PRN 10/31 1200 CKD IV 11/30 1159 Dextrose/Water 250 ML ASDIR PRN 10/31 1200 CKD IV 11/30 1159 Glucagon 1 MG ASDIR PRN 10/31 1200 AC IM 11/30 1159 Furosemide 0 .STK-MED ONE 10/31 1045 DC .ROUTE Furosemide 0 .STK-MED ONE 10/31 1043 DC .ROUTE Furosemide 60 MG Q8HR 10/31 0945 AC 10/31 IV 10/31 2201 1047 Sodium Chloride 250 ML ASDIR PRN 10/31 0945 AC IV 11/30 0944 Apixaban 2.5 MG BID 10/31 0900 AC PO 11/30 0859 Atropine Sulfate 0.5 MG ASDIR PRN 10/31 0830 AC IV 11/01 0822 Sodium Chloride 500 ML ASDIR PRN 10/31 0830 AC IV 11/01 0822 Vancomycin HCl 0 .STK-MED ONE 10/31 0735 DC 10/31 .ROUTE 0751 Heparin Sodium 0 .STK-MED ONE 10/31 0724 DC .ROUTE Sugammadex Sodium 0 .STK-MED ONE 10/31 0715 DC IV Sodium Chloride 250 ML .STK-MED ONE 10/31 07 DC IV Heparin Sodium 0 .STK-MED ONE 10/31 699 DC .ROUTE Norepinephrine 0 .STK-MED ONE 10/31 699 DC Bitartrate IV Propofol 20 ML .STK-MED ONE 10/31 699 DC IV Rocuronium [place] 0 .STK-MED ONE 10/31 699 DC IV Heparin Sodium 0 .STK-MED ONE 10/31 0658 DC 10/31 .ROUTE 0751 Heparin Sodium/ 2,000 ML .STK-MED ONE 10/31 0658 DC 10/31 Sodium Chloride IV 0751 Heparin Sodium/ 500 ML .STK-MED ONE 10/31 657 DC 10/31 Sodium Chloride IV 0751 Bupivacaine HCl 0 .STK-MED ONE 10/31 0657 DC .ROUTE Acetaminophen 0 .STK-MED ONE 10/31 06 DC .ROUTE Gabapentin 0 .STK-MED ONE 10/31 06 DC .ROUTE Lidocaine HCl 0 .STK-MED ONE 10/31 06 DC .ROUTE Acetaminophen 1,000 MG PREOP ONCALL 10/29 1145 DC PO 11/28 2359 Lactated Ringer's 1,000 ML PREOP ONCALL 10/29 1145 DC IV 11/28 2359 Lidocaine HCl 2 ML PREOP ONCALL 10/29 1145 DC LOCAL 11/28 2359 Lidocaine HCl 2 ML PREOP ONCALL 10/29 1145 DC LOCAL 11/28 2359 Sodium Chloride 500 ML PREOP ONCALL 10/29 1145 DC IV 11/28 2359 Sodium Chloride 500 ML PREOP ONCALL 10/29 1145 DC IV 11/28 2359 Sodium Chloride 1,000 ML PREOP ONCALL 10/29 1145 DC IV 11/28 2359 Sodium Chloride 5 ML ASDIR PRN 10/29 1145 AC IV 11/28 1144 Sodium Chloride 10 ML ASDIR PRN 10/29 1145 AC IV 11/28 1144 Sodium Chloride 250 ML ASDIR PRN 10/29 1145 DC IV 11/28 1144 Home Medications:ATORVASTATIN (LIPITOR) 40 MG PO BEDTIME DOXAZOSIN (CARDURA) 2 MG PO BEDTIME ASPIRIN 81 MG PO BEDTIME Dapagliflozin Propanediol (FARXIGA) 5 MG PO DAILY FUROSEMIDE (LASIX) 20 MG PO DAILY PRN EDEMA hydrALAZINE (APRESOLINE) 25 MG PO TID LISINOPRIL (ZESTRIL) 20 MG PO DAILY GABAPENTIN (NEURONTIN) 300 MG PO BEDTIME PRAMIPEXOLE DI-HCL (MIRAPEX) 0.25 MG PO TID [AREDS N2 EYES] 1 CAP PO BID CARBIDOPA/LEVODOPA (SINEMET 25/100 MG) 2 TAB PO TID SODIUM BICARBONATE 650 MG PO BID UMECLIDINIUM BRM/VILANTEROL TR (ANORO ELLIPTA 62.5-25 MCG INH) 1 PUFF INH RTDAILY AMIODARONE (PACERONE) 200 MG PO DAILY [PREVAGEN EXT STRENGT] 1 PO DAILY [BALANCE FRUIT] 3 TAB PO DAILY [BALANCE VEGGIES] 3 TAB PO DAILY [MINERALS IMMUNO 150] 3 TAB PO DAILY UBIDECARENONE (CO Q-10) (Unknown Dose) PO DAILY DOCUSATE SODIUM (COLACE) 100 MG PO DAILY I attest that the foregoing medication list in the medical record is true, accurate, and complete to the best of my knowledge. at 1650 RPT #:[id number] OF REPORTPRProgress [id number]:49:[id number] able for patient [id number]:50:37 [facility] 2022-11-01 12:16:00 [id number] 12T12:16:00 [facility] Hospitalist Progress NoteREPORT#:[id number] REPORT STATUS: SignedDATE:11/01/22 TIME: 1216 PATIENT: ROBE RITCHIE UNIT #: [id number]#: [id number] [address] [birth year] AGE: 77 SEX: M ATTEND: Kristina Hodge MDADM AUTHOR: Lis Benson MD * ALL edits or amendments must be made on the electronic/computer document * SubjectiveChief complaint:he feel well . no cp no sob HPI:77 years old male with PMH of parkinson disease , CAD with CABG, afib , DM , HTNand CKD had watchman placement today . LETA show atrial thrombus . procedure was canceled . he is seen in the director of cardiac cath lab . he complaint of sob for 2 weeks . he hadinternal bleeding few weeks ago . xarelto stoped . he is on ASA. no cp no fever no cough no nausea no vomiting Review of SystemsConstitutional:Denies: fatigue, fever, generalized weakness, lethargy. Respiratory:Denies: pneumonia, productive cough (sputum), SOB, wheezing. Cardiovascular:Denies: chest pain, GONZALEZ (dyspnea on exertion), edema, orthopnea, palpitations. GI:Denies: abdominal pain, nausea, vomiting. Neuro:Denies: confusion, dizziness. Objective GeneralVS/I O:Vital Signs: Date Time Temp Pulse Resp B/P B/P Pulse O2 O2 Flow FiO2 Mean Ox Delivery Rate 11/01 1200 36.5 46 16 147/52 83.6 97 Room air 11/01 0811 36.6 50 17 165/68 100.6 92 Room air 11/01 0504 36.4 53 16 143/71 95.3 95 Room air 10/31 2330 36.5 45 16 108/42 64.2 92 Room air 10/31 2036 36.5 46 16 119/49 72.3 97 Room air 10/31 1449 Nasal 2 cannula 24 hour I O ending at 0700: 11/01 0700 10/31 1900 Intake Total 500 Output Total 390 400 Balance 110 -400 Intake, Oral 500 Output, Urine 390 400 PATIENT WEIGHT: Weight (lb): 231Weight (oz): 4.24Weight (kg): 104.900 Medications:Active Meds + DC'd Last 24 HrsDocusate Sodium (COLACE) 100 MG DAILY PO Furosemide (LASIX 40 mg/4 mL INJECTION) 60 MG Q8H IV Aspirin (ASPIRIN) 81 MG BEDTIME PO Atorvastatin Calcium (LIPITOR) 40 MG BEDTIME PO Gabapentin (NEURONTIN) 300 MG BEDTIME PO Insulin Human Lispro (HUMALOG) 0 AC HS SUBQ Carbidopa/Levodopa (SINEMET-25 100) 2 TAB TID PO Pramipexole Dihydrochloride (MIRAPEX) 0.25 MG TID PO Dextrose/Water (DEXTROSE 10% IN WATER) 125 ML ASDIR PRN IV (CKD) Dextrose/Water (DEXTROSE 10% IN WATER) 250 ML ASDIR PRN IV (CKD) Glucagon (GLUCAGON) 1 MG ASDIR PRN IM Furosemide (LASIX 40 mg/4 mL INJECTION) 60 MG Q8HR IV (DC) Sodium Chloride (SODIUM CHLORIDE 0.9%) 250 ML ASDIR PRN IV Apixaban (ELIQUIS 2.5MG TABLET) 2.5 MG BID PO Atropine Sulfate (ATROPINE SULFATE 0.1MG/ML SYR) 0.5 MG ASDIR PRN IV (DC) Sodium Chloride (SODIUM CHLORIDE 0.9%) 500 ML ASDIR PRN IV (DC) Sodium Chloride (SODIUM CHLORIDE) 5 ML ASDIR PRN IV (DC) Sodium Chloride (SODIUM CHLORIDE) 10 ML ASDIR PRN IV (DC) Physical ExamGeneral appearance: alert, awake, orientedHead/Eyes: atraumatic, normal conjunctiva/sclera, normal eyelids/periorb., normocephalicNeck: full range of motion, non-tender, no JVDCardiovascular: bradycardic, normal heart soundsRespiratory: aerating well, clear to auscultationAbdomen: non-tender, normal bowel sounds, soft, no distentionExtremities: moves all, no calf tenderness, no edemaNeuro/TUMBLER PLATER: alert, oriented X 3, CNII-XII intact, normal speech, no motor deficits, no sensory deficitsSkin: dry, intact ResultsFindings/Data:Laboratory Tests 11/01 11/01 11/01 10/31 0752 0752 0500 1858 Chemistry Sodium (134 - 147 mEq/L) 139 Potassium (3.4 - 5.0 mEq/L) 5.0 Chloride (100 - 108 mEq/L) 105 Carbon Dioxide (21 - 33 mEq/l) 24 Anion Gap (0 - 20) 15 BUN (7 - 18 mg/dL) 63 H Creatinine (0.6 - 1.3 mg/dL) 3.0 H Glomerular Filtr Rate (70 - 80) 20.5 L Glucose (70 - 110 mg/dL) 132 H POC Glucose (70 - 110 MG/DL) 146 H 181 H Calcium (8.0 - 10.5 mg/dL) 9.4 Phosphorus (2.5 - 4.9 MG/DL) 4.3 Magnesium (1.80 - 2.40 mg/dL) 2.17 B-Natriuretic Peptide (0 - 100 PG/ML) 295.0 H Laboratory Tests 11/01 0752 Hematology WBC (4.5 - 11.0 x10 3/uL) 5.4 RBC (4.00 - 5.60 x10 6/uL) 3.68 L Hgb (12.5 - 16.9 g/dL) 9.0 L Hct (37.5 - 50.7 %) 29.7 L MCV (81.0 - 99.0 fL) 80.7 L MCH (27.0 - 33.0 pg) 24.5 L MCHC (33.0 - 37.0 g/dL) 30.3 L RDW (11.5 - 14.5 %) 16.1 H Plt Count (150 - 400 x10 3/uL) 179 MPV (7.0 - 9.0 fL) 10.3 H Neut % (Auto) (56.0 - 77.0 %) 70.5 Lymph % (Auto) (14.0 - 32.0 %) 14.2 [place] % (Auto) (4.8 - 9.0 %) 7.6 Eos % (Auto) (0.3 - 3.7 %) 6.6 H Baso % (Auto) (0.0 - 2.0 %) 0.9 Neut # (Auto) (2.0 - 7.6 x10 3/uL) 3.83 Lymph # (Auto) (1.0 - 3.8 x10 3/uL) 0.77 L [place] # (Auto) (0.1 - 0.8 x10 3/uL) 0.41 Eos # (Auto) (0.0 - 0.2 x10 3/uL) 0.36 H Baso # (Auto) (0.0 - 0.2 x10 3/uL) 0.05 Abs Immat Gran (auto) (0.00 - 0.03 x10 3/uL) 0.01 Add Manual Diff NO Immature Gran % (0.0 - 2.0 %) 0.2 Nucleated RBC % (0 - 0 %) 0.0 Nucleated RBCs # (Man) (0.0 - 0.1 x10 3/uL) 0.00 Radiology data:Recent Impressions:ULTRASOUND - DUP VEIN MARIE 11/01 1058 Report Impression - Status: SIGNED Entered: 11/01/2022 1109 IMPRESSION: No evidence of deep vein thrombosis. Impression By: Ely Leon M.D.ULTRASOUND - US RETROPERITONEAL COM 11/01 1100 Report Impression - Status: SIGNED Entered: 11/01/2022 1115 IMPRESSION: 1. No acute renal abnormality. 2. Ascites. Impression By: Ely Leon M.D. Diagnosis, Assessment PlanConsultants: cardiology, nephrology Free Text DxA P NotesFree text DxA P notes: atrial thrombus afib bradycardia DMHTNCKDparkinson's disease Hx of bleeding atrial thrombus /afib/ bradycardia tele HR -- 40 -- manage as cardiology hematology consult -- [employer] AC start eliuis now DM-- hold metformin now -- sliding scale HTN -- stop lisinopril-- due to CKD -- hold hydralazine -- monitor BP -- well control now CKD-- nephrology consult DVTP-- on eliquis 11/01- he feel well -- tele -- show HR -- 20--30 at night -- EP consult as cardiology -- BP-- stable -- continue monitor in tele Quality: Gen Med Crit Care Current MedicationsCurrent medication review: Current Medications Sig/Denice Start time Last Medication Dose Route Stop Time Status Admin Docusate Sodium 100 MG DAILY 11/01 0900 AC PO 12/01 0859 Aspirin 81 MG BEDTIME 10/31 2100 AC PO 11/30 2058 Atorvastatin Calcium 40 MG BEDTIME 10/31 2100 AC PO 11/30 2058 Gabapentin 300 MG BEDTIME 10/31 2100 AC PO 11/30 2058 Insulin Human Lispro 0 AC HS 10/31 1630 AC SUBQ 11/30 1629 Carbidopa/Levodopa 2 TAB TID 10/31 1500 AC PO 11/30 1459 Pramipexole 0.25 MG TID 10/31 1500 AC Dihydrochloride PO 11/30 1459 Dextrose/Water 125 ML ASDIR PRN 10/31 1200 CKD IV 11/30 1159 Dextrose/Water 250 ML ASDIR PRN 10/31 1200 CKD IV 11/30 1159 Glucagon 1 MG ASDIR PRN 10/31 1200 AC IM 11/30 1159 Furosemide 0 .STK-MED ONE 10/31 1045 DC .ROUTE Furosemide 0 .STK-MED ONE 10/31 1043 DC .ROUTE Furosemide 60 MG Q8HR 10/31 0945 AC 10/31 IV 10/31 2201 1047 Sodium Chloride 250 ML ASDIR PRN 10/31 0945 AC IV 11/30 0944 Apixaban 2.5 MG BID 10/31 0900 AC PO 11/30 0859 Atropine Sulfate 0.5 MG ASDIR PRN 10/31 0830 AC IV 11/01 0822 Sodium Chloride 500 ML ASDIR PRN 10/31 0830 AC IV 11/01 0822 Vancomycin HCl 0 .STK-MED ONE 10/31 0735 DC 10/31 .ROUTE 0751 Heparin Sodium 0 .STK-MED ONE 10/31 0724 DC .ROUTE Sugammadex Sodium 0 .STK-MED ONE 10/31 0715 DC IV Sodium Chloride 250 ML .STK-MED ONE 10/31 0703 DC IV Heparin Sodium 0 .STK-MED ONE 10/31 07 DC .ROUTE Norepinephrine 0 .STK-MED ONE 10/31 07 DC Bitartrate IV Propofol 20 ML .STK-MED ONE 10/31 07 DC IV Rocuronium [place] 0 .STK-MED ONE 10/31 07 DC IV Heparin Sodium 0 .STK-MED ONE 10/31 0658 DC 10/31 .ROUTE 0751 Heparin Sodium/ 2,000 ML .STK-MED ONE 10/31 0658 DC 10/31 Sodium Chloride IV 0751 Heparin Sodium/ 500 ML .STK-MED ONE 10/31 06 DC 10/31 Sodium Chloride IV 0751 Bupivacaine HCl 0 .STK-MED ONE 10/31 0657 DC .ROUTE Acetaminophen 0 .STK-MED ONE 10/31 06 DC .ROUTE Gabapentin 0 .STK-MED ONE 10/31 06 DC .ROUTE Lidocaine HCl 0 .STK-MED ONE 10/31 642 DC .ROUTE Acetaminophen 1,000 MG PREOP ONCALL 10/29 1145 DC PO 11/28 2359 Lactated Ringer's 1,000 ML PREOP ONCALL 10/29 1145 DC IV 11/28 2359 Lidocaine HCl 2 ML PREOP ONCALL 10/29 1145 DC LOCAL 11/28 2359 Lidocaine HCl 2 ML PREOP ONCALL 10/29 1145 DC LOCAL 11/28 2359 Sodium Chloride 500 ML PREOP ONCALL 10/29 1145 DC IV 11/28 2359 Sodium Chloride 500 ML PREOP ONCALL 10/29 1145 DC IV 11/28 2359 Sodium Chloride 1,000 ML PREOP ONCALL 10/29 1145 DC IV 11/28 2359 Sodium Chloride 5 ML ASDIR PRN 10/29 1145 AC IV 11/28 1144 Sodium Chloride 10 ML ASDIR PRN 10/29 1145 AC IV 11/28 1144 Sodium Chloride 250 ML ASDIR PRN 10/29 1145 DC IV 11/28 1144 Home Medications:ATORVASTATIN (LIPITOR) 40 MG PO BEDTIME DOXAZOSIN (CARDURA) 2 MG PO BEDTIME ASPIRIN 81 MG PO BEDTIME Dapagliflozin Propanediol (FARXIGA) 5 MG PO DAILY FUROSEMIDE (LASIX) 20 MG PO DAILY PRN EDEMA hydrALAZINE (APRESOLINE) 25 MG PO TID LISINOPRIL (ZESTRIL) 20 MG PO DAILY GABAPENTIN (NEURONTIN) 300 MG PO BEDTIME PRAMIPEXOLE DI-HCL (MIRAPEX) 0.25 MG PO TID [AREDS N2 EYES] 1 CAP PO BID CARBIDOPA/LEVODOPA (SINEMET 25/100 MG) 2 TAB PO TID SODIUM BICARBONATE 650 MG PO BID UMECLIDINIUM BRM/VILANTEROL TR (ANORO ELLIPTA 62.5-25 MCG INH) 1 PUFF INH RTDAILY AMIODARONE (PACERONE) 200 MG PO DAILY [PREVAGEN EXT STRENGT] 1 PO DAILY [BALANCE FRUIT] 3 TAB PO DAILY [BALANCE VEGGIES] 3 TAB PO DAILY [MINERALS IMMUNO 150] 3 TAB PO DAILY UBIDECARENONE (CO Q-10) (Unknown Dose) PO DAILY DOCUSATE SODIUM (COLACE) 100 MG PO DAILY I attest that the foregoing medication list in the medical record is true, accurate, and complete to the best of my knowledge. at 1802 [facility] #:[id number] OF REPORTPRProgress [id number]:16:[id number] able for patient [id number]:07:03 [facility] 2022-11-01 10:59:00 [id number] 12T10:59:00 [facility] ([facility])EP Progress NoteREPORT#:[id number] REPORT STATUS: SignedDATE:11/01/22 TIME: 1059 PATIENT: ROBE RITCHIE UNIT #: [id number]#: [id number] [address] [birth year] AGE: 77 SEX: M ATTEND: Kristina Hodge MDADM AUTHOR: Wade Carey EMERGENCY MEDICAL TECHNICIAN BASIC * ALL edits or amendments must be made on the electronic/computer document * Wade Carey 11/01/22 1059:Objective GeneralVS/I OLast Documented: Result Date Time Pulse Ox 92 11/01 810 B/P 165/68 11/01 810 B/P Mean 100.6 11/01 810 O2 Delivery Room air 11/01 810 Temp 36.6 11/01 08 Pulse 50 11/01 810 Resp 17 11/01 810 O2 Flow Rate 2 10/31 1449 24 hour I O ending at 0700: 11/01 0700 10/31 1900 Intake Total 500 Output Total 390 400 Balance 110 -400 Intake, Oral 500 Output, Urine 390 400 PATIENT WEIGHT: Weight (lb): 231Weight (oz): 4.24Weight (kg): 104.900 Medications:Active Meds + DC'd Last 24 HrsDocusate Sodium (COLACE) 100 MG DAILY PO Furosemide (LASIX 40 mg/4 mL INJECTION) 60 MG Q8H IV Aspirin (ASPIRIN) 81 MG BEDTIME PO Atorvastatin Calcium (LIPITOR) 40 MG BEDTIME PO Gabapentin (NEURONTIN) 300 MG BEDTIME PO Insulin Human Lispro (HUMALOG) 0 AC HS SUBQ Carbidopa/Levodopa (SINEMET-25 100) 2 TAB TID PO Pramipexole Dihydrochloride (MIRAPEX) 0.25 MG TID PO Dextrose/Water (DEXTROSE 10% IN WATER) 125 ML ASDIR PRN IV (CKD) Dextrose/Water (DEXTROSE 10% IN WATER) 250 ML ASDIR PRN IV (CKD) Glucagon (GLUCAGON) 1 MG ASDIR PRN IM Furosemide (LASIX 40 mg/4 mL INJECTION) 60 MG Q8HR IV (DC) Sodium Chloride (SODIUM CHLORIDE 0.9%) 250 ML ASDIR PRN IV Apixaban (ELIQUIS 2.5MG TABLET) 2.5 MG BID PO Atropine Sulfate (ATROPINE SULFATE 0.1MG/ML SYR) 0.5 MG ASDIR PRN IV (DC) Sodium Chloride (SODIUM CHLORIDE 0.9%) 500 ML ASDIR PRN IV (DC) Acetaminophen (TYLENOL EXTRA STRENGTH) 1,000 MG PREOP ONCALL PO (DC) Lactated Ringer's (LACTATED RINGERS) 1,000 ML PREOP ONCALL IV (DC) Lidocaine HCl (LIDOCAINE HCL/PF) 2 ML PREOP ONCALL LOCAL (DC) Lidocaine HCl (LIDOCAINE HCL/PF) 2 ML PREOP ONCALL LOCAL (DC) Sodium Chloride (SODIUM CHLORIDE 0.9%) 500 ML PREOP ONCALL IV (DC) Sodium Chloride (SODIUM CHLORIDE 0.9%) 500 ML PREOP ONCALL IV (DC) Sodium Chloride (SODIUM CHLORIDE 0.9%) 1,000 ML PREOP ONCALL IV (DC) Sodium Chloride (SODIUM CHLORIDE) 5 ML ASDIR PRN IV (DC) Sodium Chloride (SODIUM CHLORIDE) 10 ML ASDIR PRN IV (DC) Sodium Chloride (SODIUM CHLORIDE 0.9%) 250 ML ASDIR PRN IV (DC) Physical ExamGeneral appearance: alert, awake, orientedCardiovascular: CV assessment: bradycardia, irregular rhythmRespiratory: on oxygen, no distressAbdomen: soft, non-tenderExtremities: moves allNeuro/TUMBLER PLATER: alert, oriented X 3Findings/Data:Laboratory Tests: 11/01 11/01 11/01 10/31 0752 0752 0500 1858 Chemistry Sodium (134 - 147 mEq/L) 139 Potassium (3.4 - 5.0 mEq/L) 5.0 Chloride (100 - 108 mEq/L) 105 Carbon Dioxide (21 - 33 mEq/l) 24 Anion Gap (0 - 20) 15 BUN (7 - 18 mg/dL) 63 H Creatinine (0.6 - 1.3 mg/dL) 3.0 H Glomerular Filtr Rate (70 - 80) 20.5 L Glucose (70 - 110 mg/dL) 132 H POC Glucose (70 - 110 MG/DL) 146 H 181 H Calcium (8.0 - 10.5 mg/dL) 9.4 Phosphorus (2.5 - 4.9 MG/DL) 4.3 Magnesium (1.80 - 2.40 mg/dL) 2.17 B-Natriuretic Peptide (0 - 100 PG/ML) 295.0 H Hematology WBC (4.5 - 11.0 x10 3/uL) 5.4 RBC (4.00 - 5.60 x10 6/uL) 3.68 L Hgb (12.5 - 16.9 g/dL) 9.0 L Hct (37.5 - 50.7 %) 29.7 L MCV (81.0 - 99.0 fL) 80.7 L MCH (27.0 - 33.0 pg) 24.5 L MCHC (33.0 - 37.0 g/dL) 30.3 L RDW (11.5 - 14.5 %) 16.1 H Plt Count (150 - 400 x10 3/uL) 179 MPV (7.0 - 9.0 fL) 10.3 H Neut % (Auto) (56.0 - 77.0 %) 70.5 Lymph % (Auto) (14.0 - 32.0 %) 14.2 [place] % (Auto) (4.8 - 9.0 %) 7.6 Eos % (Auto) (0.3 - 3.7 %) 6.6 H Baso % (Auto) (0.0 - 2.0 %) 0.9 Neut # (Auto) (2.0 - 7.6 x10 3/uL) 3.83 Lymph # (Auto) (1.0 - 3.8 x10 3/uL) 0.77 L [place] # (Auto) (0.1 - 0.8 x10 3/uL) 0.41 Eos # (Auto) (0.0 - 0.2 x10 3/uL) 0.36 H Baso # (Auto) (0.0 - 0.2 x10 3/uL) 0.05 Abs Immat Gran (auto) (0.00 - 0.03 x10 3/uL) 0.01 Add Manual Diff NO Immature Gran % (0.0 - 2.0 %) 0.2 Nucleated RBC % (0 - 0 %) 0.0 Nucleated RBCs # (Man) (0.0 - 0.1 x10 3/uL) 0.00 Laboratory Tests 11/01 11/01 0752 0752 Chemistry Magnesium (1.80 - 2.40 mg/dL) 2.17 B-Natriuretic Peptide (0 - 100 PG/ML) 295.0 H Diagnosis, Assessment PlanFree Text A P:1. Bradycardia-currently Afib 30s-50s-no AVN-blocking whpe-eglzgznztdoq-yt indication for PPM at this time-ok to d/c from EP standpoint 2. Afib-s/p aborted attempt for LAAO via [facility] per -s/p [place], [place] thrombus-no AA therapy-AC eliquis 3. CHF-per cardio, LVEF nml Consultants: cardiology, nephrology Aramis Antunez 11/05/22 1309:Attestations Physician AttestationAgree w/findings plan:Patient with symptoms of SOB, fatigued, tiredness for the last weeks. 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 at 0655 at 1312 RPT #:[id number] OF REPORTPRProgress [id number]:00G.[id number] able for patient [id number]:56:05 [facility] 2022-11-01 08:12:00 [id number] 12T08:12:00 [facility] ([facility])Cardiology Progress NoteREPORT#:[id number] REPORT STATUS: SignedDATE:11/01/22 TIME: 08 PATIENT: ROBE RITCHIE JR UNIT #: [id number]#: [id number] ROOM[facility]BED: [facility]DOB: [birth year] AGE: 77 SEX: M ATTEND: Kristina Hodge MDADM AUTHOR: Cynthia Silver AGACNP * ALL edits or amendments must be made on the electronic/computer document * SubjectiveComments:Slow afib at night low 30s, 40-50s when awake Objective GeneralVS/I O:24 hour I O ending at 0700: 11/01 0700 10/31 1900 Intake Total 500 Output Total 390 400 Balance 110 -400 Intake, Oral 500 Output, Urine 390 400 Vital Signs: Date Time Temp Pulse Resp B/P B/P Pulse O2 O2 Flow FiO2 Mean Ox Delivery Rate 11/01 810 36.6 50 17 165/68 100.6 92 Room air 11/01 0504 36.4 53 16 143/71 95.3 95 Room air 10/31 2330 36.5 45 16 108/42 64.2 92 Room air 10/31 2036 36.5 46 16 119/49 72.3 97 Room air 10/31 1449 Nasal 2 cannula 10/31 0840 Nasal 2 cannula PATIENT WEIGHT: Weight (lb): 231Weight (oz): 4.24Weight (kg): 104.900 Medications:Active Meds + DC'd Last 24 HrsDocusate Sodium (COLACE) 100 MG DAILY PO Furosemide (LASIX 40 mg/4 mL INJECTION) 60 MG Q8H IV (CKD) Aspirin (ASPIRIN) 81 MG BEDTIME PO Atorvastatin Calcium (LIPITOR) 40 MG BEDTIME PO Gabapentin (NEURONTIN) 300 MG BEDTIME PO Insulin Human Lispro (HUMALOG) 0 AC HS SUBQ Carbidopa/Levodopa (SINEMET-25 100) 2 TAB TID PO Pramipexole Dihydrochloride (MIRAPEX) 0.25 MG TID PO Dextrose/Water (DEXTROSE 10% IN WATER) 125 ML ASDIR PRN IV (CKD) Dextrose/Water (DEXTROSE 10% IN WATER) 250 ML ASDIR PRN IV (CKD) Glucagon (GLUCAGON) 1 MG ASDIR PRN IM Furosemide (LASIX 20MG INJ) 0 .STK-MED ONE .ROUTE (DC) Furosemide (LASIX 20MG INJ) 0 .STK-MED ONE .ROUTE (DC) Furosemide (LASIX 40 mg/4 mL INJECTION) 60 MG Q8HR IV (DC) Sodium Chloride (SODIUM CHLORIDE 0.9%) 250 ML ASDIR PRN IV Apixaban (ELIQUIS 2.5MG TABLET) 2.5 MG BID PO Atropine Sulfate (ATROPINE SULFATE 0.1MG/ML SYR) 0.5 MG ASDIR PRN IV Sodium Chloride (SODIUM CHLORIDE 0.9%) 500 ML ASDIR PRN IV Acetaminophen (TYLENOL EXTRA STRENGTH) 1,000 MG PREOP ONCALL PO (DC) Lactated Ringer's (LACTATED RINGERS) 1,000 ML PREOP ONCALL IV (DC) Lidocaine HCl (LIDOCAINE HCL/PF) 2 ML PREOP ONCALL LOCAL (DC) Lidocaine HCl (LIDOCAINE HCL/PF) 2 ML PREOP ONCALL LOCAL (DC) Sodium Chloride (SODIUM CHLORIDE 0.9%) 500 ML PREOP ONCALL IV (DC) Sodium Chloride (SODIUM CHLORIDE 0.9%) 500 ML PREOP ONCALL IV (DC) Sodium Chloride (SODIUM CHLORIDE 0.9%) 1,000 ML PREOP ONCALL IV (DC) Sodium Chloride (SODIUM CHLORIDE) 5 ML ASDIR PRN IV (DC) Sodium Chloride (SODIUM CHLORIDE) 10 ML ASDIR PRN IV (DC) Sodium Chloride (SODIUM CHLORIDE 0.9%) 250 ML ASDIR PRN IV (DC) Physical ExamGeneral appearance: obese, alert, awake, orientedNeck: non-tender, no JVDCardiovascular: CV assessment: bradycardia, irregular rhythm, pedal edemaRespiratory: decreased breath sounds, no distressAbdomen: soft, non-tenderGenitourinary: no flank pain, no urinary catheterLower extremity: LE assessment: edemaMusculoskeletal: normal inspectionNeuro/TUMBLER PLATER: alert, oriented X 3, normal speechSkin: dry, some erythema of BLEPsychiatry: normal affect, normal mood ResultsFindings/Data:Laboratory Tests 11/01 10/31 10/31 0500 1858 0852 Chemistry POC Glucose (70 - 110 MG/DL) 146 H 181 H 114 HLaboratory Tests 11/01/22 0752:[Embedded Image Not Available] Results: labs reviewed, vital signs reviewedTelemetry Interpretation:afib with slow ventricular rate Diagnosis, Assessment PlanProblem List/A P: 1. Atrial fibrillation 2. KRISTI (acute kidney injury) 3. Hx of CABG 4. Diastolic CHF Plan discussed with: patient, consultants (EP), nurse Free Text DxA P NotesFree Text DxA P Notes:77 YO male with PMHx of CAD s/p 3V CABG (2014), chronic atrial fibrillation, GI Bleed, hypertension, CKD, and Diastolic CHF. He was on chronic anticoagulation with Xarelto but developed GI bleed. He was admitted today to undergo watchman procedure. However, during the preoperative LETA he was found to have left atrial appendage thrombus so the procedure was halted, also found to have elevated creatinine, and volume overloaded 1. Chronic atrial fibrillation - slow A. fibWatchman halted due to left atrial thrombuson Eliquis 2.5 mg twice a dayHold amiodarone due to bradycardiatelemetry - monitor for sick sinus syndromeRepeat Echo in a month to eval LA clotEP consult for slow afib 2. Left atrial thrombusEliquis 2.5 mg BID 3. KRISTI on CKDcreatinine 3.4->3.0, unclear baseline kidney functionNephrology following 4. Acute on chronic diastolic CHFEcho with normal EF, mild ASBNP 295Diuresis per nephrology, currently in IV Lasix 60 mg Q8H 5. CAD with prior 3V CABGno BB due to bradycardiacontinue ASA and statin 6. Lower extremity edema d/t fluid overloadon IV lasixwill also get LE venous doppler to r/o DVT 7. Hypertensionnormotensivemonitor off BP medshold ACEI d/t KRISTI, no BB d/t bradycardia 8. History of GIB bleedhgb 9.2->9 9. CXR showed RLL opacity/pleural effusionWBC normal, no fevercould be 2/2 volume overload, on IV LasixPulmo with planned for thoracentesis Tx plan discussed in indepth with patient. at 1513 at 1880 RPT #:[id number] OF REPORTPRProgress [id number]:12:00G.[id number] able for patient [id number]:15:08 HCACL 2022-11-01 07:34:00 [id number] 12T07:34:00 [facility] ([facility]Neph[facility] Progress NoteREPORT#:[id number] REPORT STATUS: SignedDATE:11/01/22 TIME: 733 PATIENT: ROBE RITCHIE JR UNIT #: [id number]#: [id number] [address] AGE: 77 SEX: M ATTEND: Kristina Hodge AUTHOR: Sherly Gomes MD * ALL edits or amendments must be made on the electronic/computer document * SubjectiveChief complaint:For watchman deviceHPI:Patient seen and evaluated, discussed with care team, 77-year-old male with history of diabetes mellitus, hypertension, hyperlipidemia, chronic kidney disease followed by patient liaison in [place] and [place] who presented for watchman's device placement, however the procedure was aborted due to TTE showing atrial thrombus. His laboratories showed sodium 141, potassium 5, CO2 25, BUN 69, creatinine 3.4, glucose 107, hemoglobin 9.2, platelet 191, blood count 5.7. Patient seen post procedure in the PACU, he feels okay except for shortness of breath. Renal consult was requested for evaluation management of his elevated BUN and creatinine.Patient reports:Yes: complaints. Comments:Patient seen and evaluated, HPI no change from initial, feels better. Review of SystemsConstitutional:Reports: fatigue. Denies: chills, fever. Skin:Reports: swelling. Denies: rash. Allergy/Immun:Denies: hives, itching. Eyes:Denies: redness, discharge. ENT:Denies: ear drainage, ear ringing. Respiratory:Reports: SOB. Denies: hemoptysis. Cardiovascular:Denies: chest pain. Objective GeneralVS/I O:Vital Signs: Date Time Temp Pulse Resp B/P B/P Pulse O2 O2 Flow FiO2 Mean Ox Delivery Rate 11/01 0504 36.4 53 16 143/71 95.3 95 Room air 10/31 2330 36.5 45 16 108/42 64.2 92 Room air 10/31 2036 36.5 46 16 119/49 72.3 97 Room air 10/31 1449 Nasal 2 cannula 10/31 0840 Nasal 2 cannula 24 hour I O ending at 0700: 11/01 0700 10/31 1900 Intake Total 500 Output Total 390 400 Balance 110 -400 Intake, Oral 500 Output, Urine 390 400 PATIENT WEIGHT: Weight (lb): 231Weight (oz): 4.24Weight (kg): 104.900 MedicationsActive Meds + DC'd Last 24 HrsDocusate Sodium (COLACE) 100 MG DAILY PO Aspirin (ASPIRIN) 81 MG BEDTIME PO Atorvastatin Calcium (LIPITOR) 40 MG BEDTIME PO Gabapentin (NEURONTIN) 300 MG BEDTIME PO Insulin Human Lispro (HUMALOG) 0 AC HS SUBQ Carbidopa/Levodopa (SINEMET-25 100) 2 TAB TID PO Pramipexole Dihydrochloride (MIRAPEX) 0.25 MG TID PO Dextrose/Water (DEXTROSE 10% IN WATER) 125 ML ASDIR PRN IV (CKD) Dextrose/Water (DEXTROSE 10% IN WATER) 250 ML ASDIR PRN IV (CKD) Glucagon (GLUCAGON) 1 MG ASDIR PRN IM Furosemide (LASIX 20MG INJ) 0 .STK-MED ONE .ROUTE (DC) Furosemide (LASIX 20MG INJ) 0 .STK-MED ONE .ROUTE (DC) Furosemide (LASIX 40 mg/4 mL INJECTION) 60 MG Q8HR IV (DC) Sodium Chloride (SODIUM CHLORIDE 0.9%) 250 ML ASDIR PRN IV Apixaban (ELIQUIS 2.5MG TABLET) 2.5 MG BID PO Atropine Sulfate (ATROPINE SULFATE 0.1MG/ML SYR) 0.5 MG ASDIR PRN IV Sodium Chloride (SODIUM CHLORIDE 0.9%) 500 ML ASDIR PRN IV Vancomycin HCl (VANCOMYCIN HCL) 0 .STK-MED ONE .ROUTE (DC) Acetaminophen (TYLENOL EXTRA STRENGTH) 1,000 MG PREOP ONCALL PO (DC) Lactated Ringer's (LACTATED RINGERS) 1,000 ML PREOP ONCALL IV (DC) Lidocaine HCl (LIDOCAINE HCL/PF) 2 ML PREOP ONCALL LOCAL (DC) Lidocaine HCl (LIDOCAINE HCL/PF) 2 ML PREOP ONCALL LOCAL (DC) Sodium Chloride (SODIUM CHLORIDE 0.9%) 500 ML PREOP ONCALL IV (DC) Sodium Chloride (SODIUM CHLORIDE 0.9%) 500 ML PREOP ONCALL IV (DC) Sodium Chloride (SODIUM CHLORIDE 0.9%) 1,000 ML PREOP ONCALL IV (DC) Sodium Chloride (SODIUM CHLORIDE) 5 ML ASDIR PRN IV (DC) Sodium Chloride (SODIUM CHLORIDE) 10 ML ASDIR PRN IV (DC) Sodium Chloride (SODIUM CHLORIDE 0.9%) 250 ML ASDIR PRN IV (DC) Physical ExamGeneral appearance: alert, no acute distressHead/eyes: atraumatic, normocephalicENT: normal noseNeck: non-tender, supple/no meningismusCardiovascular: normal heart sounds, no rubRespiratory: aerating well, symmetric expansionAbdomen: non-tender, softGenitourinary: no flank pain, no urinary catheterExtremities: pitting edema, non-tenderMusculoskeletal: no CVA tenderness, no tendernessNeuro/TUMBLER PLATER: alert, normal speechSkin: dry, intact ResultsFindings/Data:Laboratory Tests 11/01 10/31 10/31 10/31 10/29 0500 1858 0852 0632 1050 Chemistry Sodium (134 - 147 mEq/L) 141 Potassium (3.4 - 5.0 mEq/L) 5.0 Chloride (100 - 108 mEq/L) 105 Carbon Dioxide (21 - 33 mEq/l) 25 Anion Gap (0 - 20) 16 BUN (7 - 18 mg/dL) 69 H Creatinine (0.6 - 1.3 mg/dL) 3.4 H Glomerular Filtr Rate (70 - 80) 17.6 L Glucose (70 - 110 mg/dL) 107 POC Glucose (70 - 110 MG/DL) 146 H 181 H 114 H 123 H Calcium (8.0 - 10.5 mg/dL) 9.5 Prealbumin (16.0 - 40.0 mg/dL) 27.7 Laboratory Tests 10/29 1050 Coagulation INR (0.8 - 1.2) 1.2 PT Patient/Control Mix (9.3 - 12.9 SECONDS) 13.6 H Laboratory Tests 10/29 1050 Hematology WBC (4.5 - 11.0 x10 3/uL) 5.7 RBC (4.00 - 5.60 x10 6/uL) 3.70 L Hgb (12.5 - 16.9 g/dL) 9.2 L Hct (37.5 - 50.7 %) 30.3 L MCV (81.0 - 99.0 fL) 81.9 MCH (27.0 - 33.0 pg) 24.9 L MCHC (33.0 - 37.0 g/dL) 30.4 L RDW (11.5 - 14.5 %) 16.3 H Plt Count (150 - 400 x10 3/uL) 191 MPV (7.0 - 9.0 fL) 10.7 H Neut % (Auto) (56.0 - 77.0 %) 73.3 Lymph % (Auto) (14.0 - 32.0 %) 14.6 [place] % (Auto) (4.8 - 9.0 %) 8.2 Eos % (Auto) (0.3 - 3.7 %) 2.8 Baso % (Auto) (0.0 - 2.0 %) 0.9 Neut # (Auto) (2.0 - 7.6 x10 3/uL) 4.21 Lymph # (Auto) (1.0 - 3.8 x10 3/uL) 0.84 L [place] # (Auto) (0.1 - 0.8 x10 3/uL) 0.47 Eos # (Auto) (0.0 - 0.2 x10 3/uL) 0.16 Baso # (Auto) (0.0 - 0.2 x10 3/uL) 0.05 Abs Immat Gran (auto) (0.00 - 0.03 x10 3/uL) 0.01 Add Manual Diff NO Immature Gran % (0.0 - 2.0 %) 0.2 Nucleated RBC % (0 - 0 %) 0.0 Nucleated RBCs # (Man) (0.0 - 0.1 x10 3/uL) 0.00 Laboratory Tests 11/01 10/31 10/31 0500 1858 0852 Chemistry POC Glucose (70 - 110 MG/DL) 146 H 181 H 114 H Diagnosis, Assessment PlanFree Text A P:Patient seen and evaluated, discussed with care team, images and laboratories reviewed.History of hypertension: On doxazosin/hydralazine and lisinopril: We will hold lisinopril: Multiple pressure closely and adjust medications as neededHistory of diabetes mellitus: On Farxiga at, will DC due to low GFR.History of hyperlipidemiaHistory of A. 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 Sodium 139, potassium 5, CO2 24, BUN 63, creatinine 3 down from 3.4 improving, hemoglobin 9,platelet 179, blood count 5.4Consultants: cardiology, nephrology at 0941 [facility] #:[id number] OF REPORTPRProgress [id number]:34:00G.[id number] able for patient [id number]:41:47 [facility] 2022-10-31 16:58:00 [id number] 11T16:58:[id number] [place] [address] PATIENT NAME: ROBE RITCHIE JR ADMIT DATE: 10/31/22ACCOUNT NO: [id number] ROOM NO: [id number] AGE: 77 REPORT TYPE: CONSULTATION REPORT SEX: M ADMITTING PHYSICIAN:Raoul Dailey MD ATTENDING PHYSICIAN:Kristina Hodge MD CONSULTATION DATE: 10/31/2022 HEMATOLOGY CONSULTATION PHYSICIAN REQUESTING CONSULTATION: Dr. Linn REASON FOR CONSULTATION: Atrial thrombus. HISTORY OF PRESENT ILLNESS: This is a 77-year-old gentleman with history of coronary artery disease, status post CABG, as well as chronic atrial fibrillation and previous history of GI bleed. He was to undergo Watchman's procedure today secondary to recent GI bleed from anticoagulation. However, preoperative TEEs noted a left atrial appendage thrombus. The patient had been on previous anticoagulation with Xarelto, but again as mentioned, discontinued secondary to GI bleed 2 weeks prior. He is noted to have elevated creatinine, as well as atrial fibrillation. PAST MEDICAL HISTORY:1. Chronic atrial fibrillation, previously on anticoagulation with Xarelto.2. Coronary artery disease, status post CABG.3. Diabetes type 2.4. Hypertension.5. CKD. PAST SURGICAL HISTORY: CABG. SOCIAL HISTORY: No smoking, alcohol or illicit drug use. FAMILY HISTORY: No history of malignancies or hematologic disorders. ALLERGIES: PENICILLIN AND CODEINE. REVIEW OF SYSTEMS: A 14-point review of systems noted to be negative unless otherwise mentioned in HPI. PHYSICAL EXAMINATION:VITAL SIGNS: Blood pressure 133/64, pulse 58, respiratory rate 14, temperature 36.3 degrees, O2 saturation 100% on 2 liters nasal cannula.GENERAL: Pleasant elderly gentleman, in no acute distress.HEENT: Normocephalic, atraumatic.NECK: Supple, no JVD, no carotid bruit.LUNGS: Decreased breath sounds bilaterally.HEART: S1, S2 positive. Irregularly irregular, bradycardic. PATIENT NAME: ROBE RITCHIE ABDOMEN: Soft, nontender, nondistended. Bowel sounds positive.EXTREMITIES: +2 pitting edema in bilateral lower extremities.NEUROLOGIC: Grossly nonfocal.SKIN: No rash or bruising seen.PSYCHIATRIC: The patient is awake and oriented to time, person, and place. LABORATORY DATA AND DIAGNOSTIC STUDIES: Sodium 141, potassium 5, chloride 105, bicarbonate 25, BUN 69, creatinine 3.4, glucose 107, calcium 9.5. CBC: WBC 5.0, hemoglobin 9.2, hematocrit 30.3, platelets 191,000, MCV 81.9, RDW 16.3. PT13.6, INR 1.2. Chest x-ray on 10/29/2022, moderate right lower lobe opacity, possibly pneumonia. Small right pleural effusion. ASSESSMENT:1. 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 Previous history of anticoagulation with recent GI bleed. Suspect underlying acute iron deficiency anemia.3. Acute on chronic kidney disease.4. Acute on chronic diastolic congestive heart failure.5. History of coronary artery disease status post coronary artery bypass graft. 6. Hypertension.7. Question of a right lower lobe pneumonia. PLAN:1. Continue anticoagulation recommendations as per cardiology. Suspect left atrial thrombus secondary to underlying atrial fibrillation. No necessity for hypercoagulable workup. Currently, started on Eliquis 2.5 mg oral twice daily given renal insufficiency.2. Check iron panel/ferritin. Can provide parenteral iron if need be.3. Nephrology consultation appreciated. Creatinine elevated 3.4, baseline unknown. Currently receiving Lasix 60 mg IV q. 8 hours.4. Bilateral lower extremity ultrasound to rule out deep vein thrombosis.5. Other medical management as per primary team. Thank you for the consultation. We will follow along side as the patient remains hospitalized. Dictated By: Carlos Alberto Barfield MD Date Dictated: 10/31/2022 16:58:17Date Transcribed: 10/31/2022 17:21:47AL/[facility]ESeveriano #: [id number] ID: [id number] by Carlos Alberto Barfield MD On 12/03/2022 06:50:11 PM at 0650 PATIENT NAME: ROBE RITCHIE INOCENCIO ESCALONA :21:00[facility] [id number] for patient [id number]:50:44 [facility] 2022-10-31 16:54:00 [id number] 11T16:54:00 [facility] ([facility])Pulmonary Consultation NoteREPORT#:[id number] REPORT STATUS: SignedDATE:10/31/22 TIME: 1654 PATIENT: ROBE RITCHIE INOCENCIO ESCALONA UNIT #: [id number]#: [id number] [address] [birth year] AGE: 77 SEX: M ATTEND: Kristina Hodge Julito MDADM AUTHOR: Taylor Lowery MD * ALL edits or amendments must be made on the electronic/computer document * History of Present Illness HPIHPI:Patient is a 77-year-old male with Parkinson, coronary disease, CABG,A. fibPresented today for evaluation for watchman procedureTEE showed arterial thrombosis, procedure was canceled, he has been off Xarelto for 3 weeksHe developed internal GI bleed and since then he had not have the XareltoHe denies any fever or chills, no coughing, no wheezingNo recent sick contact or travelHe had pulmonary edema in the past, pleural effusion but he never had thoracentesisChest x-ray looks abnormalHe admitted to have lower extremity edema, orthopnea, and PND History - Adult longitudinalPast medical history:Reports: Atrial fibrillation, Coronary artery disease, Diabetes mellitus, Hypertension, Kidney disease/stones, GI bleed. Denies: Ischemic stroke. Additional medical history:CardioversionPast surgical history:Reports: CABG. Alcohol use: Denies EtOH useDrug use: Denies recreational drugsSmoking status for patients 13 years old or older: Never SmokerMedications:Home Medications:Medication Dose/Rte/Freq Days Qty Entered Last Max Daily Dose Reviewed ATORVASTATIN (LIPITOR) 40 MG PO BEDTIME 08/25/13 10/31/22Strength: 40 MG TAB 0929 0657 DOXAZOSIN (CARDURA) 2 MG PO BEDTIME 08/25/13 10/31/22Strength: 2 MG TAB 0930 0657 ASPIRIN 81 MG PO BEDTIME 08/25/13 10/31/22Strength: 81 MG TAB.CHEW 0935 0657 Dapagliflozin Propanediol 5 MG PO DAILY 10/29/22 10/31/22 (FARXIGA) 1102 0657Strength: 5 MG TAB FUROSEMIDE (LASIX) 20 MG PO 10/29/22 10/31/22Strength: 40 MG TAB DAILY PRN EDEMA 1103 0657 hydrALAZINE (APRESOLINE) 25 MG PO TID 10/29/22 10/31/22Strength: 25 MG TAB 1103 0657 LISINOPRIL (ZESTRIL) 20 MG PO DAILY 10/29/22 10/31/22Strength: 40 MG TAB 1103 0657 GABAPENTIN (NEURONTIN) 300 MG PO BEDTIME 10/29/22 10/31/22Strength: 300 MG CAP 1103 0657 PRAMIPEXOLE DI-HCL 0.25 MG PO TID 10/29/22 10/31/22 (MIRAPEX) 1104 0657Strength: 0.25 MG TAB[AREDS N2 EYES] 1 CAP PO BID 10/29/22 10/31/22Strength: 1105 0657 CARBIDOPA/LEVODOPA 2 TAB PO TID 10/29/22 10/31/22 (SINEMET 25/100 MG) 1105 0657Strength: 25 MG-100 MG TAB SODIUM BICARBONATE 650 MG PO BID 10/29/22 10/31/22Strength: 650 MG TAB 1106 0657 UMECLIDINIUM 1 PUFF INH RTDAILY 10/29/22 10/31/22 BRM/VILANTEROL TR 1124 0657 (ANORO ELLIPTA 62.5-25 MCG INH)Strength: 62.5 MCG-25MCG/ACTUATION INHALER AMIODARONE (PACERONE) 200 MG PO DAILY 10/29/22 10/31/22Strength: 200 MG TAB 1124 0657[PREVAGEN EXT STRENGT] 1 PO DAILY 10/29/22 10/31/22Strength: 1126 0657[BALANCE FRUIT] 3 TAB PO DAILY 10/29/22 10/31/22Strength: 1127 0657[BALANCE VEGGIES] 3 TAB PO DAILY 10/29/22 10/31/22Strength: 1127 0657[MINERALS IMMUNO 150] 3 TAB PO DAILY 10/29/22 10/31/22Strength: 1127 0657 UBIDECARENONE (CO Q-10) (Unknown Dose) PO 10/29/22 10/31/22Strength: (Unknown DAILY 1127 0657Strength) CAP DOCUSATE SODIUM 100 MG PO DAILY 10/29/22 10/31/22 (COLACE) 1251 0657Strength: 100 MG CAP Current Hospital Medications:Anti-Infective Agents Sig/Denice Start time Last Medication Dose Route Stop Time Status Admin Vancomycin HCl 0 .STK-MED ONE 10/31 0735 DC 10/31 (VANCOMYCIN HCL) .ROUTE 0751 Autonomic Drugs Sig/Denice Start time Last Medication Dose Route Stop Time Status Admin Atropine Sulfate 0.5 MG ASDIR PRN 10/31 0830 AC (ATROPINE SULFATE IV 11/01 08 0.1MG/ML SYR) Norepinephrine 0 .STK-MED ONE 10/31 699 DC Bitartrate IV (LEVOPHED BITARTATE) Rocuronium [place] 0 .STK-MED ONE 10/31 699 DC (ZEMURON) IV Blood Formation,Coagulation Sig/Denice Start time Last Medication Dose Route Stop Time Status Admin Apixaban 2.5 MG BID 10/31 899 AC (ELIQUIS 2.5MG PO 11/30 0859 TABLET) Heparin Sodium 0 .STK-MED ONE 10/31 0724 DC (HEPARIN SODIUM) .ROUTE Heparin Sodium 0 .STK-MED ONE 10/31 699 DC (HEPARIN SODIUM) .ROUTE Heparin Sodium 0 .STK-MED ONE 10/31 0658 DC 10/31 (HEPARIN SODIUM) .ROUTE 0751 Heparin Sodium/ 2,000 ML .STK-MED ONE 10/31 657 DC 10/31 Sodium Chloride IV 0751 (HEPARIN 2,000 UNITS/ NS 1,000mL) Heparin Sodium/ 500 ML .STK-MED ONE 10/31 06 DC 10/31 Sodium Chloride IV 0751 (HEPARIN 1,000 UNITS/ NS 500ML) Cardiovascular Drugs Sig/Denice Start time Last Medication Dose Route Stop Time Status Admin Atorvastatin Calcium 40 MG BEDTIME 10/31 2099 AC (LIPITOR) PO 11/30 2058 Lidocaine HCl 0 .STK-MED ONE 10/31 0643 DC (XYLOCAINE) .ROUTE Lidocaine HCl 2 ML PREOP ONCALL 10/29 1145 DC (LIDOCAINE HCL/PF) LOCAL 11/28 2358 Lidocaine HCl 2 ML PREOP ONCALL 10/29 1145 DC (LIDOCAINE HCL/PF) LOCAL 11/28 2358 Central Nervous System Agents Sig/Denice Start time Last Medication Dose Route Stop Time Status Admin Aspirin 81 MG BEDTIME 10/31 2099 AC (ASPIRIN) PO 11/30 2058 Gabapentin 300 MG BEDTIME 10/31 2099 AC (NEURONTIN) PO 11/30 2058 Carbidopa/Levodopa 2 TAB TID 10/31 1500 AC 10/31 (SINEMET-25 100) PO 11/30 1459 1542 Pramipexole 0.25 MG TID 10/31 1500 AC 10/31 Dihydrochloride PO 11/30 1459 1543 (MIRAPEX) Propofol 20 ML .STK-MED ONE 10/31 0700 DC (DIPRIVAN 200MG/20ML IV INJECTION) Acetaminophen 0 .STK-MED ONE 10/31 0643 DC (TYLENOL EXTRA .ROUTE STRENGTH) Gabapentin 0 .STK-MED ONE 10/31 0643 DC (NEURONTIN) .ROUTE Acetaminophen 1,000 MG PREOP ONCALL 10/29 1145 DC (TYLENOL EXTRA PO 11/28 2359 STRENGTH) Electrolytic, Caloric, And Myranda Sig/Denice Start time Last Medication Dose Route Stop Time Status Admin Dextrose/Water 125 ML ASDIR PRN 10/31 1200 CKD (DEXTROSE 10% IN IV 11/30 1159 WATER) Dextrose/Water 250 ML ASDIR PRN 10/31 1200 CKD (DEXTROSE 10% IN IV 11/30 1159 WATER) Furosemide 0 .STK-MED ONE 10/31 1045 DC (LASIX 20MG INJ) .ROUTE Furosemide 0 .STK-MED ONE 10/31 1043 DC (LASIX 20MG INJ) .ROUTE Furosemide 60 MG Q8HR 10/31 0945 AC 10/31 (LASIX 40 mg/4 mL IV 10/31 2201 1542 INJECTION) Sodium Chloride 250 ML ASDIR PRN 10/31 0945 AC (SODIUM CHLORIDE IV 11/30 0944 0.9%) Sodium Chloride 500 ML ASDIR PRN 10/31 0830 AC (SODIUM CHLORIDE IV 11/01 0822 0.9%) Sodium Chloride 250 ML .STK-MED ONE 10/31 0703 DC (SODIUM CHLORIDE IV 0.9%) Lactated Ringer's 1,000 ML PREOP ONCALL 10/29 1145 DC (LACTATED RINGERS) IV 11/28 2358 Sodium Chloride 500 ML PREOP ONCALL 10/29 1145 DC (SODIUM CHLORIDE IV 11/28 2358 0.9%) Sodium Chloride 500 ML PREOP ONCALL 10/29 1145 DC (SODIUM CHLORIDE IV 11/28 2358 0.9%) Sodium Chloride 1,000 ML PREOP ONCALL 10/29 1145 DC (SODIUM CHLORIDE IV 11/28 2359 0.9%) Sodium Chloride 5 ML ASDIR PRN 10/29 1145 DC (SODIUM CHLORIDE) IV 11/28 1144 Sodium Chloride 10 ML ASDIR PRN 10/29 1145 DC (SODIUM CHLORIDE) IV 11/28 1144 Sodium Chloride 250 ML ASDIR PRN 10/29 1145 DC (SODIUM CHLORIDE IV 11/28 1144 0.9%) Gastrointestinal Drugs Sig/Denice Start time Last Medication Dose Route Stop Time Status Admin Docusate Sodium 100 MG DAILY 11/01 0900 AC (COLACE) PO 12/01 0859 Hormones And Synthetic Substit Sig/Denice Start time Last Medication Dose Route Stop Time Status Admin Insulin Human Lispro 0 AC HS 10/31 1630 AC (HUMALOG) SUBQ 11/30 1629 Glucagon 1 MG ASDIR PRN 10/31 1200 AC (GLUCAGON) IM 11/30 1159 Local Anesthetics (Parenteral) Sig/Denice Start time Last Medication Dose Route Stop Time Status Admin Bupivacaine HCl 0 .STK-MED ONE 10/31 0657 DC (MARCAINE 0.5%) .ROUTE Miscellaneous Therapeutic Agen Sig/Denice Start time Last Medication Dose Route Stop Time Status Admin Sugammadex Sodium 0 .STK-MED ONE 10/31 0715 DC (BRIDION) IV Allergies:Coded Allergies:Penicillins (Severe, RASHES 08/28/13)codeine (Severe, ITCHING 08/28/13) Ambulatory status: Independent Review of SystemsAll systems rev neg: except as marked Objective Physical ExamVitals:Last Documented: Result Date Time O2 Delivery Nasal cannula 10/31 1449 O2 Flow Rate 2 10/31 1449 Pulse Ox 100 10/31 699 B/P 133/64 10/31 699 Temp 36.3 10/31 699 Pulse 58 10/31 699 Resp 20 10/31 699 ResultsResults: x-ray personally reviewed Free Text Obj NotesFree Text Obj Notes:General appearance: alert, awake, orientedHead/Eyes: atraumatic, normocephalic, PERRLANeck: full range of motion, non-tender, normal thyroidCardiovascular: normal heart sounds, normal S1/S2, regular rate rhythmRespiratory/chest: aerating well, clear to auscultation, symmetric expansionAbdomen: soft, non-tender, normal bowel soundsGenitourinary: no bladder distention, no flank painExtremities: No edema, moves all, normal capillary refill, no calf tendernessMusculoskeletal: full range of motion, normal inspection, painless range of motion, straight leg raise negSkin: dry, intact, normal color Diagnosis, Assessment Plan Diagnosis, Assessment PlanConsultants: cardiology, nephrology Free Text DxA P NotesFree Text DxA P Notes:1. Pleural effusion#2 pulmonary edema#3 CHF exacerbation#4 CKD#5 atrial thrombosis#6 history of GI bleed Patient presented for watchman procedure LETA revealed atrial thrombosis, the procedure was canceledHe is in CHF exacerbation with volume overload status, secondary to CKD as wellChest x-ray showed right-sided pleural effusion with atelectasis,There is bilateral infiltrates most consistent with pulm edemaPneumonia is unlikely he has no respiratory symptoms to suggest pneumonia and hehas no fever, no leukocytosis or left shift We will plan right-sided thoracentesisI recommend diuresisRepeat chest x-ray tomorrow Thank you for the consult at 1657 RPT #:[id number] OF REPORTFUCzhjlpbozxpi3154-62-68K94:54:00G.PDOC2 [id number] for patient tyqhEJRXFSJGMSKASH7781-29-73A04:57:30 [facility] 2022-10-31 13:24:00 [id number] 11T13:24:00 [facility])Cardiology ConsultationREPORT#:[id number] REPORT STATUS: SignedDATE:10/31/22 TIME: 1324 PATIENT: ROBE RITCHIE UNIT #: [id number]#: [id number] [address] [birth year] AGE: 77 SEX: M ATTEND: Kristina Hodge AUTHOR: Cynthia Silver * ALL edits or amendments must be made on the electronic/computer document * History of Present Illness HPIRequesting Clinician: Dr. Estevez for consult:Atrial fibrillation intolerant of anticoagulationChief complaint:Atrial fibrillationPCP:PCP: Manuel Gandhi MD HPI:77 YO male with PMHx of CAD s/p 3V CABG (2014), chronic atrial fibrillation, GI Bleed, hypertension, CKD, and Diastolic CHF. He was on chronic anticoagulation with Xarelto but was discontinued about 2 weeks ago due to GI bleed He was admitted today to undergo watchman procedure. However, during the preoperative LETA he was found to have left atrial appendage thrombus so the procedure was halted. Also found to have elevated creatinine and Nephrology has been consulted. On physical examination he has about 2 to 3 + pitting edema of bilateral lower extremity, appear short of breath. monitoring and evaluation advisor showed slow atrial fibrillation down in the 30-40s range during sleep, when awake HR is in the 50s. Blood pressure is stable. History - Adult longitudinalPast medical history:Reports: Atrial fibrillation, Coronary artery disease, Diabetes mellitus, Hypertension, Kidney disease/stones, GI bleed. Denies: Ischemic stroke. Additional medical history:CardioversionPast surgical history:Reports: CABG. Alcohol use: Denies EtOH useDrug use: Denies recreational drugsSmoking status for patients 13 years old or older: Never SmokerHome medications:Home Medications:ATORVASTATIN (LIPITOR) 40 MG PO BEDTIME DOXAZOSIN (CARDURA) 2 MG PO BEDTIME ASPIRIN 81 MG PO BEDTIME Dapagliflozin Propanediol (FARXIGA) 5 MG PO DAILY FUROSEMIDE (LASIX) 20 MG PO DAILY PRN EDEMA hydrALAZINE (APRESOLINE) 25 MG PO TID LISINOPRIL (ZESTRIL) 20 MG PO DAILY GABAPENTIN (NEURONTIN) 300 MG PO BEDTIME PRAMIPEXOLE DI-HCL (MIRAPEX) 0.25 MG PO TID [AREDS N2 EYES] 1 CAP PO BID CARBIDOPA/LEVODOPA (SINEMET 25/100 MG) 2 TAB PO TID SODIUM BICARBONATE 650 MG PO BID UMECLIDINIUM BRM/VILANTEROL TR (ANORO ELLIPTA 62.5-25 MCG INH) 1 PUFF INH RTDAILY AMIODARONE (PACERONE) 200 MG PO DAILY [PREVAGEN EXT STRENGT] 1 PO DAILY [BALANCE FRUIT] 3 TAB PO DAILY [BALANCE VEGGIES] 3 TAB PO DAILY [MINERALS IMMUNO 150] 3 TAB PO DAILY UBIDECARENONE (CO Q-10) (Unknown Dose) PO DAILY DOCUSATE SODIUM (COLACE) 100 MG PO DAILY Allergies:Coded Allergies:Penicillins (Severe, RASHES 08/28/13)codeine (Severe, ITCHING 08/28/13) Ambulatory status: Independent Review of SystemsRespiratory:Reports: SOB. Cardiovascular:Denies: chest pain. GI:Denies: abdominal pain, nausea. Musculoskeletal:extremity swelling. Neuro:Denies: change in LOC, confusion, dizziness, syncope, weakness. Objective GeneralVS/I O:Vital Signs: Date Time Temp Pulse Resp B/P B/P Pulse O2 O2 Flow FiO2 Mean Ox Delivery Rate 10/31 0840 Nasal 2 cannula 10/31 0705 Nasal 2 cannula 10/31 0700 36.3 58 20 133/64 100 Nasal 2 cannula PATIENT WEIGHT: Weight (lb): 231Weight (oz): 4.24Weight (kg): 104.900 Medications:Active Meds + DC'd Last 24 HrsDocusate Sodium (COLACE) 100 MG DAILY PO Aspirin (ASPIRIN) 81 MG BEDTIME PO Atorvastatin Calcium (LIPITOR) 40 MG BEDTIME PO Gabapentin (NEURONTIN) 300 MG BEDTIME PO Insulin Human Lispro (HUMALOG) 0 AC HS SUBQ Carbidopa/Levodopa (SINEMET-25 100) 2 TAB TID PO Pramipexole Dihydrochloride (MIRAPEX) 0.25 MG TID PO Dextrose/Water (DEXTROSE 10% IN WATER) 125 ML ASDIR PRN IV (CKD) Dextrose/Water (DEXTROSE 10% IN WATER) 250 ML ASDIR PRN IV (CKD) Glucagon (GLUCAGON) 1 MG ASDIR PRN IM Furosemide (LASIX 20MG INJ) 0 .STK-MED ONE .ROUTE (DC) Furosemide (LASIX 20MG INJ) 0 .STK-MED ONE .ROUTE (DC) Furosemide (LASIX 40 mg/4 mL INJECTION) 60 MG Q8HR IV Sodium Chloride (SODIUM CHLORIDE 0.9%) 250 ML ASDIR PRN IV Apixaban (ELIQUIS 2.5MG TABLET) 2.5 MG BID PO Atropine Sulfate (ATROPINE SULFATE 0.1MG/ML SYR) 0.5 MG ASDIR PRN IV Sodium Chloride (SODIUM CHLORIDE 0.9%) 500 ML ASDIR PRN IV Vancomycin HCl (VANCOMYCIN HCL) 0 .STK-MED ONE .ROUTE (DC) Heparin Sodium (HEPARIN SODIUM) 0 .STK-MED ONE .ROUTE (DC) Sugammadex Sodium (BRIDION) 0 .STK-MED ONE IV (DC) Sodium Chloride (SODIUM CHLORIDE 0.9%) 250 ML .STK-MED ONE IV (DC) Heparin Sodium (HEPARIN SODIUM) 0 .STK-MED ONE .ROUTE (DC) Norepinephrine Bitartrate (LEVOPHED BITARTATE) 0 .STK-MED ONE IV (DC) Propofol (DIPRIVAN 200MG/20ML INJECTION) 20 ML .STK-MED ONE IV (DC) Rocuronium [place] (ZEMURON) 0 .STK-MED ONE IV (DC) Heparin Sodium (HEPARIN SODIUM) 0 .STK-MED ONE .ROUTE (DC) Heparin Sodium/Sodium Chloride (HEPARIN 2,000 UNITS/NS 1,000mL) 2,000 ML .STK-MED ONE IV (DC) Heparin Sodium/Sodium Chloride (HEPARIN 1,000 UNITS/NS 500ML) 500 ML .STK-MED ONE IV (DC) Bupivacaine HCl (MARCAINE 0.5%) 0 .STK-MED ONE .ROUTE (DC) Acetaminophen (TYLENOL EXTRA STRENGTH) 0 .STK-MED ONE .ROUTE (DC) Gabapentin (NEURONTIN) 0 .STK-MED ONE .ROUTE (DC) Lidocaine HCl (XYLOCAINE) 0 .STK-MED ONE .ROUTE (DC) Acetaminophen (TYLENOL EXTRA STRENGTH) 1,000 MG PREOP ONCALL PO (DC) Lactated Ringer's (LACTATED RINGERS) 1,000 ML PREOP ONCALL IV (DC) Lidocaine HCl (LIDOCAINE HCL/PF) 2 ML PREOP ONCALL LOCAL (DC) Lidocaine HCl (LIDOCAINE HCL/PF) 2 ML PREOP ONCALL LOCAL (DC) Sodium Chloride (SODIUM CHLORIDE 0.9%) 500 ML PREOP ONCALL IV (DC) Sodium Chloride (SODIUM CHLORIDE 0.9%) 500 ML PREOP ONCALL IV (DC) Sodium Chloride (SODIUM CHLORIDE 0.9%) 1,000 ML PREOP ONCALL IV (DC) Sodium Chloride (SODIUM CHLORIDE) 5 ML ASDIR PRN IV Sodium Chloride (SODIUM CHLORIDE) 10 ML ASDIR PRN IV Sodium Chloride (SODIUM CHLORIDE 0.9%) 250 ML ASDIR PRN IV (DC) Physical ExamGeneral appearance: alert, awake, oriented, no acute distressNeck: non-tender, no JVDCardiovascular: CV assessment: bradycardia, irregular rhythm, pedal edemaRespiratory: decreased breath sounds, no distressAbdomen: soft, non-tenderGenitourinary: no flank pain, no urinary catheterLower extremity: LE assessment: edemaMusculoskeletal: normal inspectionNeuro/TUMBLER PLATER: alert, oriented X 3, normal speechSkin: dry, some erythema of BLEPsychiatry: normal affect, normal mood ResultsFindings/Data:Laboratory Tests 10/31 10/31 0852 0632 Chemistry POC Glucose (70 - 110 MG/DL) 114 H 123 H Results: labs reviewed, vital signs reviewed, rhythm personally rev'dTelemetry Interpretation:slow atrial fibrillation Scores [id number] [id number] Score [id number] Score Response Value CHF: Yes 1 HTN: Yes 1 age greater than 75 years: Yes 2 diabetes mellitus: Yes 1 Total 5 HFQ-CLEI-GhqeaJCT-BLED Score HAS-BLED Score Response Value uncontrolled HTN-SBP>160 Yes 1 abn renal fxn/creat>=2.6 No 0 age 65 yrs or greater: Yes 1 bleeding: Yes 1 use of drugs w/bleed risk: Antiplatelet/ASA 325mg 1 Total 4 Diagnosis, Assessment PlanProblem List/A P: 1. Atrial fibrillation 2. KRISTI (acute kidney injury) 3. Hx of CABG 4. Diastolic CHF Plan discussed with: patient, nurse Free Text DxA P NotesFree Text DxA P Notes:77 YO male with PMHx of CAD s/p 3V CABG (2014), chronic atrial fibrillation, GI Bleed, hypertension, CKD, and Diastolic CHF. He was on chronic anticoagulation with Xarelto but developed GI bleed. He was admitted today to undergo watchman procedure. However, during the preoperative LETA he was found to have left atrial appendage thrombus so the procedure was halted, also found to have elevated creatinine, and volume overloaded 1. Chronic atrial fibrillation - slow A. fibWatchman halted due to left atrial thrombuson Eliquis 2.5 mg twice a dayHold amiodarone due to bradycardiatelemetry - monitor for sick sinus syndromeRepeat Echo in a month 2. Left atrial thrombusEliquis 2.5 mg BID 3. KRISTI on CKDcreatinine 3.4, unclear baseline kidney functionNephrology consulted 4. Acute on chronic diastolic CHFEcho with normal EF, mild ASCheck BNPDiuresis per nephrology, currently in IV Lasix 60 mg Q8H 5. CAD with prior 3V CABGno BB due to bradycardiacontinue ASA and statin 6. Lower extremity edema d/t fluid overloadon IV lasixwill also get LE venous doppler to r/o DVT 7. Hypertensionnormotensivemonitor off BP medshold ACEI d/t KRISTI, no BB d/t bradycardia 8. History of GIB bleedhgb 9.2 9. CXR showed RLL opacity WBC normalcould be 2/2 volume overloadPulmo consulted to armani for PNA Appreciate the referral. at 1556 at 2338 RPT #:[id number] OF [id number]:24:00G.PDOC2 [id number] for patient [id number]:56:47 [facility] 2022-10-31 11:38:00 [id number] 11T11:38:00 [facility] ([facility])EP Progress NoteREPORT#:[id number] REPORT STATUS: SignedDATE:10/31/22 TIME: 1138 PATIENT: ROBE RITCHIE UNIT #: [id number]#: [id number] [address] [birth year] AGE: 77 SEX: M ATTEND: Kristina Hodge AUTHOR: Wade Carey * ALL edits or amendments must be made on the electronic/computer document * See AddendumWade Carey 10/31/22 1138:Objective GeneralVS/I OLast Documented: Result Date Time O2 Delivery Nasal cannula 10/31 0840 O2 Flow Rate 2 10/31 0840 Pulse Ox 100 10/31 699 B/P 133/64 10/31 699 Temp 36.3 10/31 699 Pulse 58 10/31 699 Resp 20 10/31 699 PATIENT WEIGHT: Weight (lb): 231Weight (oz): 4.24Weight (kg): 104.900 Medications:Active Meds + DC'd Last 24 HrsFurosemide (LASIX 20MG INJ) 0 .STK-MED ONE .ROUTE (DC) Furosemide (LASIX 20MG INJ) 0 .STK-MED ONE .ROUTE (DC) Furosemide (LASIX 40 mg/4 mL INJECTION) 60 MG Q8HR IV Sodium Chloride (SODIUM CHLORIDE 0.9%) 250 ML ASDIR PRN IV Apixaban (ELIQUIS 2.5MG TABLET) 2.5 MG BID PO Atropine Sulfate (ATROPINE SULFATE 0.1MG/ML SYR) 0.5 MG ASDIR PRN IV Sodium Chloride (SODIUM CHLORIDE 0.9%) 500 ML ASDIR PRN IV Vancomycin HCl (VANCOMYCIN HCL) 0 .STK-MED ONE .ROUTE (DC) Heparin Sodium (HEPARIN SODIUM) 0 .STK-MED ONE .ROUTE (DC) Sugammadex Sodium (BRIDION) 0 .STK-MED ONE IV (DC) Sodium Chloride (SODIUM CHLORIDE 0.9%) 250 ML .STK-MED ONE IV (DC) Heparin Sodium (HEPARIN SODIUM) 0 .STK-MED ONE .ROUTE (DC) Norepinephrine Bitartrate (LEVOPHED BITARTATE) 0 .STK-MED ONE IV (DC) Propofol (DIPRIVAN 200MG/20ML INJECTION) 20 ML .STK-MED ONE IV (DC) Rocuronium [place] (ZEMURON) 0 .STK-MED ONE IV (DC) Heparin Sodium (HEPARIN SODIUM) 0 .STK-MED ONE .ROUTE (DC) Heparin Sodium/Sodium Chloride (HEPARIN 2,000 UNITS/NS 1,000mL) 2,000 ML .STK-MED ONE IV (DC) Heparin Sodium/Sodium Chloride (HEPARIN 1,000 UNITS/NS 500ML) 500 ML .STK-MED ONE IV (DC) Bupivacaine HCl (MARCAINE 0.5%) 0 .STK-MED ONE .ROUTE (DC) Acetaminophen (TYLENOL EXTRA STRENGTH) 0 .STK-MED ONE .ROUTE (DC) Gabapentin (NEURONTIN) 0 .STK-MED ONE .ROUTE (DC) Lidocaine HCl (XYLOCAINE) 0 .STK-MED ONE .ROUTE (DC) Acetaminophen (TYLENOL EXTRA STRENGTH) 1,000 MG PREOP ONCALL PO (CKD) Lactated Ringer's (LACTATED RINGERS) 1,000 ML PREOP ONCALL IV Lidocaine HCl (LIDOCAINE HCL/PF) 2 ML PREOP ONCALL LOCAL Lidocaine HCl (LIDOCAINE HCL/PF) 2 ML PREOP ONCALL LOCAL Sodium Chloride (SODIUM CHLORIDE 0.9%) 500 ML PREOP ONCALL IV Sodium Chloride (SODIUM CHLORIDE 0.9%) 500 ML PREOP ONCALL IV Sodium Chloride (SODIUM CHLORIDE 0.9%) 1,000 ML PREOP ONCALL IV Sodium Chloride (SODIUM CHLORIDE) 5 ML ASDIR PRN IV Sodium Chloride (SODIUM CHLORIDE) 10 ML ASDIR PRN IV Sodium Chloride (SODIUM CHLORIDE 0.9%) 250 ML ASDIR PRN IV Physical ExamGeneral appearance: alert, awake, orientedCardiovascular: CV assessment: irregular rhythmRespiratory: on oxygen, no distressAbdomen: soft, non-tenderExtremities: moves allNeuro/TUMBLER PLATER: alert, oriented X 3Findings/Data:Laboratory Tests: 10/31 10/31 0852 0632 Chemistry POC Glucose (70 - 110 MG/DL) 114 H 123 H Diagnosis, Assessment PlanFree Text A P:1. Afib-currently 40s-60s-s/p aborted attempt for LAAO via WATCHMAN per -s/p LETA, [place] thrombus identified-AC eliquis at 1349 at 1312 at 1423 Addendum 1: 11/05/22 1615 by Aramis Antunez MD at 1616 Addendum 2: 11/07/22 2148 by Aramis Antunez MD at 2149 RPT #:[id number] OF REPORTPRProgress [id number]:38:00G.[id number] able for patient [id number]:49:46 [facility] 2022-10-31 09:33:00 [id number] 11T09:33:00 [facility] ([facility])Nephrology Consultation NoteREPORT#:[id number] REPORT STATUS: SignedDATE:10/31/22 TIME: 932 PATIENT: ROBE RITCHIE UNIT #: [id number]#: [id number] [address] AGE: 77 SEX: M ATTEND: Kristina Hodge AUTHOR: Sherly Gomes MD * ALL edits or amendments must be made on the electronic/computer document * History of Present IllnessRequesting clinician: Yasmani Hodge for consult:Elevated creatinineChief complaint:For watchman deviceHPI:Patient seen and evaluated, discussed with care team, 77-year-old male with history of diabetes mellitus, hypertension, hyperlipidemia, chronic kidney disease followed by patient liaison in [place] and [place] who presented for watchman's device placement, however the procedure was aborted due to TTE showing atrial thrombus. His laboratories showed sodium 141, potassium 5, CO2 25, BUN 69, creatinine 3.4, glucose 107, hemoglobin 9.2, platelet 191, blood count 5.7. Patient seen post procedure in the PACU, he feels okay except for shortness of breath. Renal consult was requested for evaluation management of his elevated BUN and creatinine. History - Adult longitudinalPast medical history:Reports: Diabetes mellitus, Hypertension, Kidney disease/stones. Smoking status for patients 13 years old or older: Never SmokerMedications:Home Medications:Medication Dose/Rte/Freq Days Qty Entered Last Max Daily Dose Reviewed ATORVASTATIN (LIPITOR) 40 MG PO BEDTIME 08/25/13 10/31/22Strength: 40 MG TAB 0929 0657 DOXAZOSIN (CARDURA) 2 MG PO BEDTIME 08/25/13 10/31/22Strength: 2 MG TAB 0930 0657 ASPIRIN 81 MG PO BEDTIME 08/25/13 10/31/22Strength: 81 MG TAB.CHEW 0935 0657 Dapagliflozin Propanediol 5 MG PO DAILY 10/29/22 10/31/22 (FARXIGA) 1102 0657Strength: 5 MG TAB FUROSEMIDE (LASIX) 20 MG PO 10/29/22 10/31/22Strength: 40 MG TAB DAILY PRN EDEMA 1103 0657 hydrALAZINE (APRESOLINE) 25 MG PO TID 10/29/22 10/31/22Strength: 25 MG TAB 1103 0657 LISINOPRIL (ZESTRIL) 20 MG PO DAILY 10/29/22 10/31/22Strength: 40 MG TAB 1103 0657 GABAPENTIN (NEURONTIN) 300 MG PO BEDTIME 10/29/22 10/31/22Strength: 300 MG CAP 1103 0657 PRAMIPEXOLE DI-HCL 0.25 MG PO TID 10/29/22 10/31/22 (MIRAPEX) 1104 0657Strength: 0.25 MG TAB[AREDS N2 EYES] 1 CAP PO BID 10/29/22 10/31/22Strength: 1105 0657 CARBIDOPA/LEVODOPA 2 TAB PO TID 10/29/22 10/31/22 (SINEMET 25/100 MG) 1105 0657Strength: 25 MG-100 MG TAB SODIUM BICARBONATE 650 MG PO BID 10/29/22 10/31/22Strength: 650 MG TAB 1106 0657 UMECLIDINIUM 1 PUFF INH RTDAILY 10/29/22 10/31/22 BRM/VILANTEROL TR 1124 0657 (ANORO ELLIPTA 62.5-25 MCG INH)Strength: 62.5 MCG-25MCG/ACTUATION INHALER AMIODARONE (PACERONE) 200 MG PO DAILY 10/29/22 10/31/22Strength: 200 MG TAB 1124 0657[PREVAGEN EXT STRENGT] 1 PO DAILY 10/29/22 10/31/22Strength: 1126 0657[BALANCE FRUIT] 3 TAB PO DAILY 10/29/22 10/31/22Strength: 112 0657[BALANCE VEGGIES] 3 TAB PO DAILY 10/29/22 10/31/22Strengt: 1127 0657[MINERALS IMMUNO 150] 3 TAB PO DAILY 10/29/22 10/31/22Strengt: 1127 0657 UBIDECARENONE (CO Q-10) (Unknown Dose) PO 10/29/22 10/31/22Strength: (Unknown DAILY 112 0657Strength) CAP DOCUSATE SODIUM 100 MG PO DAILY 10/29/22 10/31/22 (COLACE) 1251 0657Strength: 100 MG CAP Current Hospital Medications:Anti-Infective Agents Sig/Denice Start time Last Medication Dose Route Stop Time Status Admin Vancomycin HCl 0 .STK-MED ONE 10/31 0735 DC 10/31 (VANCOMYCIN HCL) .ROUTE 075 Autonomic Drugs Sig/Denice Start time Last Medication Dose Route Stop Time Status Admin Atropine Sulfate 0.5 MG ASDIR PRN 10/31 0830 AC (ATROPINE SULFATE IV 11/01 08 0.1MG/ML SYR) Norepinephrine 0 .STK-MED ONE 10/31 699 DC Bitartrate IV (LEVOPHED BITARTATE) Rocuronium [place] 0 .STK-MED ONE 10/31 07 DC (ZEMURON) IV Blood Formation,Coagulation Sig/Denice Start time Last Medication Dose Route Stop Time Status Admin Apixaban 2.5 MG BID 10/31 09 AC (ELIQUIS 2.5MG PO 11/30 0859 TABLET) Heparin Sodium 0 .STK-MED ONE 10/31 0724 DC (HEPARIN SODIUM) .ROUTE Heparin Sodium 0 .STK-MED ONE 10/31 699 DC (HEPARIN SODIUM) .ROUTE Heparin Sodium 0 .STK-MED ONE 10/31 06 DC 10/31 (HEPARIN SODIUM) .ROUTE 075 Heparin Sodium/ 2,000 ML .STK-MED ONE 10/31 657 DC 10/31 Sodium Chloride IV 075 (HEPARIN 2,000 UNITS/ NS 1,000mL) Heparin Sodium/ 500 ML .STK-MED ONE 10/31 657 DC 10/31 Sodium Chloride IV 0751 (HEPARIN 1,000 UNITS/ NS 500ML) Cardiovascular Drugs Sig/Denice Start time Last Medication Dose Route Stop Time Status Admin Lidocaine HCl 0 .STK-MED ONE 10/31 0643 DC (XYLOCAINE) .ROUTE Lidocaine HCl 2 ML PREOP ONCALL 10/29 1145 AC (LIDOCAINE HCL/PF) LOCAL 11/28 2358 Lidocaine HCl 2 ML PREOP ONCALL 10/29 1145 AC (LIDOCAINE HCL/PF) LOCAL 11/28 235 Central Nervous System Agents Sig/Denice Start time Last Medication Dose Route Stop Time Status Admin Propofol 20 ML .STK-MED ONE 10/31 0700 DC (DIPRIVAN 200MG/20ML IV INJECTION) Acetaminophen 0 .STK-MED ONE 10/31 0643 DC (TYLENOL EXTRA .ROUTE STRENGTH) Gabapentin 0 .STK-MED ONE 10/31 642 DC (NEURONTIN) .ROUTE Acetaminophen 1,000 MG PREOP ONCALL 10/29 1145 CKD (TYLENOL EXTRA PO 11/28 2358 STRENGTH) Electrolytic, Caloric, And Myranda Sig/Denice Start time Last Medication Dose Route Stop Time Status Admin Sodium Chloride 500 ML ASDIR PRN 10/31 0830 AC (SODIUM CHLORIDE IV 11/01 08 0.9%) Sodium Chloride 250 ML .[facility]-MED ONE 10/31 0703 DC (SODIUM CHLORIDE IV 0.9%) Lactated Ringer's 1,000 ML PREOP ONCALL 10/29 1145 AC (LACTATED RINGERS) IV 11/28 235 Sodium Chloride 500 ML PREOP ONCALL 10/29 1145 AC (SODIUM CHLORIDE IV 11/28 2358 0.9%) Sodium Chloride 500 ML PREOP ONCALL 10/29 1145 AC (SODIUM CHLORIDE IV 11/28 2358 0.9%) Sodium Chloride 1,000 ML PREOP ONCALL 10/29 1145 AC (SODIUM CHLORIDE IV 11/28 2358 0.9%) Sodium Chloride 5 ML ASDIR PRN 10/29 1145 AC (SODIUM CHLORIDE) IV 11/28 1144 Sodium Chloride 10 ML ASDIR PRN 10/29 1145 AC (SODIUM CHLORIDE) IV 11/28 1144 Sodium Chloride 250 ML ASDIR PRN 10/29 1145 AC (SODIUM CHLORIDE IV 11/28 114 0.9%) Local Anesthetics (Parenteral) Sig/Denice Start time Last Medication Dose Route Stop Time Status Admin Bupivacaine HCl 0 .K-MED ONE 10/31 0657 DC (MARCAINE 0.5%) .ROUTE Miscellaneous Therapeutic Agen Sig/Denice Start time Last Medication Dose Route Stop Time Status Admin Sugammadex Sodium 0 .STK-MED ONE 10/31 0715 DC (BRIDION) IV Allergies:Coded Allergies:Penicillins (Severe, RASHES 08/28/13)codeine (Severe, ITCHING 08/28/13) Review of SystemsConstitutional:Reports: fatigue. Denies: chills, fever. Skin:Reports: swelling. Denies: rash. Allergy/Immun:Denies: hives, itching. Eyes:Denies: redness, discharge. ENT:Denies: ear drainage, ear ringing. Respiratory:Reports: SOB. Denies: hemoptysis. Cardiovascular:Denies: chest pain, palpitations. GI:Denies: abdominal pain, nausea, vomiting. :Denies: dysuria, flank pain. Musculoskeletal:Denies: extremity pain. Heme:Denies: bleeding. Endocrine:Denies: cold intolerance, heat intolerance. Neuro:Denies: change in LOC, syncope. Psych:Denies: agitation, anxiety. Objective GeneralVS/I O:Vital Signs: Date Time Temp Pulse Resp B/P B/P Pulse O2 O2 Flow FiO2 Mean Ox Delivery Rate 10/31 0840 Nasal 2 cannula 10/31 0705 Nasal 2 cannula 10/31 0700 36.3 58 20 133/64 100 Nasal 2 cannula PATIENT WEIGHT: Weight (lb): 231Weight (oz): 4.24Weight (kg): 104.900 Medications:Active Meds + DC'd Last 24 HrsApixaban (ELIQUIS 2.5MG TABLET) 2.5 MG BID PO Atropine Sulfate (ATROPINE SULFATE 0.1MG/ML SYR) 0.5 MG ASDIR PRN IV Sodium Chloride (SODIUM CHLORIDE 0.9%) 500 ML ASDIR PRN IV Vancomycin HCl (VANCOMYCIN HCL) 0 .STK-MED ONE .ROUTE (DC) Heparin Sodium (HEPARIN SODIUM) 0 .STK-MED ONE .ROUTE (DC) Sugammadex Sodium (BRIDION) 0 .STK-MED ONE IV (DC) Sodium Chloride (SODIUM CHLORIDE 0.9%) 250 ML .STK-MED ONE IV (DC) Heparin Sodium (HEPARIN SODIUM) 0 .STK-MED ONE .ROUTE (DC) Norepinephrine Bitartrate (LEVOPHED BITARTATE) 0 .STK-MED ONE IV (DC) Propofol (DIPRIVAN 200MG/20ML INJECTION) 20 ML .STK-MED ONE IV (DC) Rocuronium [place] (ZEMURON) 0 .STK-MED ONE IV (DC) Heparin Sodium (HEPARIN SODIUM) 0 .STK-MED ONE .ROUTE (DC) Heparin Sodium/Sodium Chloride (HEPARIN 2,000 UNITS/NS 1,000mL) 2,000 ML .STK-MED ONE IV (DC) Heparin Sodium/Sodium Chloride (HEPARIN 1,000 UNITS/NS 500ML) 500 ML .STK-MED ONE IV (DC) Bupivacaine HCl (MARCAINE 0.5%) 0 .STK-MED ONE .ROUTE (DC) Acetaminophen (TYLENOL EXTRA STRENGTH) 0 .STK-MED ONE .ROUTE (DC) Gabapentin (NEURONTIN) 0 .STK-MED ONE .ROUTE (DC) Lidocaine HCl (XYLOCAINE) 0 .STK-MED ONE .ROUTE (DC) Acetaminophen (TYLENOL EXTRA STRENGTH) 1,000 MG PREOP ONCALL PO (CKD) Lactated Ringer's (LACTATED RINGERS) 1,000 ML PREOP ONCALL IV Lidocaine HCl (LIDOCAINE HCL/PF) 2 ML PREOP ONCALL LOCAL Lidocaine HCl (LIDOCAINE HCL/PF) 2 ML PREOP ONCALL LOCAL Sodium Chloride (SODIUM CHLORIDE 0.9%) 500 ML PREOP ONCALL IV Sodium Chloride (SODIUM CHLORIDE 0.9%) 500 ML PREOP ONCALL IV Sodium Chloride (SODIUM CHLORIDE 0.9%) 1,000 ML PREOP ONCALL IV Sodium Chloride (SODIUM CHLORIDE) 5 ML ASDIR PRN IV Sodium Chloride (SODIUM CHLORIDE) 10 ML ASDIR PRN IV Sodium Chloride (SODIUM CHLORIDE 0.9%) 250 ML ASDIR PRN IV Physical ExamGeneral appearance: alert, no acute distressHead/eyes: atraumatic, normocephalicENT: normal noseNeck: non-tender, supple/no meningismusCardiovascular: normal heart sounds, no rubRespiratory: aerating well, symmetric expansionAbdomen: non-tender, softGenitourinary: no flank pain, no urinary catheterExtremities: pitting edema, non-tenderMusculoskeletal: no CVA tenderness, no tendernessNeuro/TUMBLER PLATER: alert, normal speechSkin: dry, intact ResultsFindings/Data:Laboratory Tests 10/31 10/31 10/29 0852 0632 1050 Chemistry Sodium (134 - 147 mEq/L) 141 Potassium (3.4 - 5.0 mEq/L) 5.0 Chloride (100 - 108 mEq/L) 105 Carbon Dioxide (21 - 33 mEq/l) 25 Anion Gap (0 - 20) 16 BUN (7 - 18 mg/dL) 69 H Creatinine (0.6 - 1.3 mg/dL) 3.4 H Glomerular Filtr Rate (70 - 80) 17.6 L Glucose (70 - 110 mg/dL) 107 POC Glucose (70 - 110 MG/DL) 114 H 123 H Calcium (8.0 - 10.5 mg/dL) 9.5 Prealbumin (16.0 - 40.0 mg/dL) 27.7 Laboratory Tests 10/29 1050 Coagulation INR (0.8 - 1.2) 1.2 PT Patient/Control Mix (9.3 - 12.9 SECONDS) 13.6 H Laboratory Tests 10/29 1050 Hematology WBC (4.5 - 11.0 x10 3/uL) 5.7 RBC (4.00 - 5.60 x10 6/uL) 3.70 L Hgb (12.5 - 16.9 g/dL) 9.2 L Hct (37.5 - 50.7 %) 30.3 L MCV (81.0 - 99.0 fL) 81.9 MCH (27.0 - 33.0 pg) 24.9 L MCHC (33.0 - 37.0 g/dL) 30.4 L RDW (11.5 - 14.5 %) 16.3 H Plt Count (150 - 400 x10 3/uL) 191 MPV (7.0 - 9.0 fL) 10.7 H Neut % (Auto) (56.0 - 77.0 %) 73.3 Lymph % (Auto) (14.0 - 32.0 %) 14.6 [place] % (Auto) (4.8 - 9.0 %) 8.2 Eos % (Auto) (0.3 - 3.7 %) 2.8 Baso % (Auto) (0.0 - 2.0 %) 0.9 Neut # (Auto) (2.0 - 7.6 x10 3/uL) 4.21 Lymph # (Auto) (1.0 - 3.8 x10 3/uL) 0.84 L [place] # (Auto) (0.1 - 0.8 x10 3/uL) 0.47 Eos # (Auto) (0.0 - 0.2 x10 3/uL) 0.16 Baso # (Auto) (0.0 - 0.2 x10 3/uL) 0.05 Abs Immat Gran (auto) (0.00 - 0.03 x10 3/uL) 0.01 Add Manual Diff NO Immature Gran % (0.0 - 2.0 %) 0.2 Nucleated RBC % (0 - 0 %) 0.0 Nucleated RBCs # (Man) (0.0 - 0.1 x10 3/uL) 0.00 Recent Impressions:RADIOLOGY - XR CHEST 2 V 10/29 1225 Report Impression - Status: SIGNED Entered: 10/29/2022 1252 IMPRESSION: 1. Moderate right lower lobe opacity, possibly pneumonia. 2. Small right pleural effusion. Impression By: [email or web address] - Ronald Escalante M.D. Laboratory Tests 10/31 10/31 0852 0632 Chemistry POC Glucose (70 - 110 MG/DL) 114 H 123 H Diagnosis, Assessment Plan Free Text DxA P NotesFree text DxA P notes:Patient seen and evaluated, discussed with care team, images and laboratories reviewed.History of hypertension: On doxazosin/hydralazine and lisinopril: We will hold lisinopril: Multiple pressure closely and adjust medications as neededHistory of diabetes mellitus: On Farxiga at, will DC due to low GFR.History of hyperlipidemiaHistory of A. fib: On amiodarone, presented for watchman's device, however LETA showed atrial thrombus, procedure was aborted and patient will receive anticoagulation with Eliquis.Anemia: Check iron studies, B12, folate and serum immunofixationChronic kidney disease: No baseline creatinine is available, his creatinine 2013was 1.5, likely has stage IV chronic kidney disease.Possible acute kidney injury component, will check urinalysis, check urine protein creatinine ratio, check renal bladder ultrasound.Shortness of breath with lower extremity edema: We will give Lasix 60 mg IV every 8 hours x3 doses. at 0942 RPT #:[id number] OF [id number]:33:00G.PDOC2 [id number] for patient [id number]:42:18 HCACL 2022-10-31 09:18:00 [id number] 11T09:18:00 [facility] ([facility])Hospitalist History PhysicalREPORT#:[id number] REPORT STATUS: SignedDATE:10/31/22 TIME: 917 PATIENT: ROBE RITCHIE JR UNIT #: [id number]#: [id number] [address] AGE: 77 SEX: M ATTEND: Kristina Hodge AUTHOR: Lis Benson MD * ALL edits or amendments must be made on the electronic/computer document * History of Present Illness HPIChief complaint:atrial thrombus HPI:77 years old male with PMH of parkinson disease , CAD with CABG, afib , DM , HTNand CKD had watchman placement today . LETA show atrial thrombus . procedure was canceled . he is seen in the director of cardiac cath lab . he complaint of sob for 2 weeks . he hadinternal bleeding few weeks ago . xarelto stoped . he is on ASA. no cp no fever no cough no nausea no vomiting History Social HistorySmoking status for patients 13 years old or older: Never Smoker Medication/Allergy-Vaccine HxAllergies:Coded Allergies:Penicillins (Severe, RASHES 08/28/13)codeine (Severe, ITCHING 08/28/13) Review of SystemsConstitutional:Denies: fatigue, fever, lethargy. Respiratory:Reports: GONZALEZ (dyspnea on exertion), SOB. Denies: non productive cough, wheezing. Cardiovascular:Denies: chest pain, GONZALEZ (dyspnea on exertion), edema, orthopnea, palpitations. GI:Denies: abdominal pain, nausea, vomiting. :Denies: dysuria, flank pain. Neuro:Denies: confusion, dizziness. Physical ExamVS/I O:Vital Signs Date Temp Pulse Resp B/P B/P Mean Pulse Ox FiO2 10/31 36.3 58 20 133/64 100 Last Documented: Result Date Time O2 Delivery Nasal cannula 10/31 704 O2 Flow Rate 2 10/31 704 Pulse Ox 100 10/31 699 B/P 133/64 10/31 699 Temp 36.3 10/31 699 Pulse 58 10/31 699 Resp 20 10/31 699 Patient Weight and BMI Weight (kg): 104.900 BMI: 35.2 General appearance: alert, awake, oriented, no acute distressHead/Eyes: atraumatic, normal conjunctiva/sclera, normal eyelids/periorb., normocephalicNeck: full range of motion, non-tender, no JVDCardiovascular: bradycardic, normal heart soundsRespiratory: aerating well, clear to auscultationAbdomen: non-tender, normal bowel sounds, soft, no distentionExtremities: moves all, no calf tenderness, no edemaNeuro/TUMBLER PLATER: alert, oriented X 3, CNII-XII intact, normal speech, no motor deficits, no sensory deficitsSkin: dry, intact ResultsFindings/Data:Laboratory Tests 10/31 10/31 10/29 0852 0632 1050 Chemistry Sodium (134 - 147 mEq/L) 141 Potassium (3.4 - 5.0 mEq/L) 5.0 Chloride (100 - 108 mEq/L) 105 Carbon Dioxide (21 - 33 mEq/l) 25 Anion Gap (0 - 20) 16 BUN (7 - 18 mg/dL) 69 H Creatinine (0.6 - 1.3 mg/dL) 3.4 H Glomerular Filtr Rate (70 - 80) 17.6 L Glucose (70 - 110 mg/dL) 107 POC Glucose (70 - 110 MG/DL) 114 H 123 H Calcium (8.0 - 10.5 mg/dL) 9.5 Prealbumin (16.0 - 40.0 mg/dL) 27.7 Laboratory Tests 10/29 1050 Coagulation INR (0.8 - 1.2) 1.2 PT Patient/Control Mix (9.3 - 12.9 SECONDS) 13.6 H Laboratory Tests 10/29 1050 Hematology WBC (4.5 - 11.0 x10 3/uL) 5.7 RBC (4.00 - 5.60 x10 6/uL) 3.70 L Hgb (12.5 - 16.9 g/dL) 9.2 L Hct (37.5 - 50.7 %) 30.3 L MCV (81.0 - 99.0 fL) 81.9 MCH (27.0 - 33.0 pg) 24.9 L MCHC (33.0 - 37.0 g/dL) 30.4 L RDW (11.5 - 14.5 %) 16.3 H Plt Count (150 - 400 x10 3/uL) 191 MPV (7.0 - 9.0 fL) 10.7 H Neut % (Auto) (56.0 - 77.0 %) 73.3 Lymph % (Auto) (14.0 - 32.0 %) 14.6 [place] % (Auto) (4.8 - 9.0 %) 8.2 Eos % (Auto) (0.3 - 3.7 %) 2.8 Baso % (Auto) (0.0 - 2.0 %) 0.9 Neut # (Auto) (2.0 - 7.6 x10 3/uL) 4.21 Lymph # (Auto) (1.0 - 3.8 x10 3/uL) 0.84 L [place] # (Auto) (0.1 - 0.8 x10 3/uL) 0.47 Eos # (Auto) (0.0 - 0.2 x10 3/uL) 0.16 Baso # (Auto) (0.0 - 0.2 x10 3/uL) 0.05 Abs Immat Gran (auto) (0.00 - 0.03 x10 3/uL) 0.01 Add Manual Diff NO Immature Gran % (0.0 - 2.0 %) 0.2 Nucleated RBC % (0 - 0 %) 0.0 Nucleated RBCs # (Man) (0.0 - 0.1 x10 3/uL) 0.00 Laboratory Tests: 10/31 10/31 0852 0632 Chemistry POC Glucose (70 - 110 MG/DL) 114 H 123 H Diagnosis, Assessment PlanFree Text A P: atrial thrombus afib bradycardia DMHTNCKDparkinson's disease Hx of bleeding atrial thrombus /afib/ bradycardia tele HR -- 40 -- manage as cardiology hematology consult -- usp AC start eliuis now DM-- hold metformin now -- sliding scale HTN -- stop lisinopril-- due to CKD -- hold hydralazine -- monitor BP -- well control now CKD-- nephrology consult Consultants: cardiology, nephrology Quality: [facility] Current MedicationsCurrent medication review: Current Medications Sig/Denice Start time Last Medication Dose Route Stop Time Status Admin Docusate Sodium 100 MG DAILY 11/01 0900 AC PO 12/01 0859 Aspirin 81 MG BEDTIME 10/31 2100 AC PO 11/30 2058 Atorvastatin Calcium 40 MG BEDTIME 10/31 2100 AC PO 11/30 205 Gabapentin 300 MG BEDTIME 10/31 2100 AC PO 11/30 2058 Insulin Human Lispro 0 AC HS 10/31 1630 AC SUBQ 11/30 1629 Carbidopa/Levodopa 2 TAB TID 10/31 1500 AC PO 11/30 1459 Pramipexole 0.25 MG TID 10/31 1500 AC Dihydrochloride PO 11/30 1459 Dextrose/Water 125 ML ASDIR PRN 10/31 1200 CKD IV 11/30 1159 Dextrose/Water 250 ML ASDIR PRN 10/31 1200 CKD IV 11/30 1159 Glucagon 1 MG ASDIR PRN 10/31 1200 AC IM 11/30 1159 Furosemide 0 .STK-MED ONE 10/31 1045 DC .ROUTE Furosemide 0 .STK-MED ONE 10/31 1043 DC .ROUTE Furosemide 60 MG Q8HR 10/31 0945 AC 10/31 IV 10/31 2201 1047 Sodium Chloride 250 ML ASDIR PRN 10/31 0945 AC IV 11/30 0944 Apixaban 2.5 MG BID 10/31 0900 AC PO 11/30 0859 Atropine Sulfate 0.5 MG ASDIR PRN 10/31 0830 AC IV 11/01 0822 Sodium Chloride 500 ML ASDIR PRN 10/31 0830 AC IV 11/01 0822 Vancomycin HCl 0 .STK-MED ONE 10/31 0735 DC 10/31 .ROUTE 0751 Heparin Sodium 0 .STK-MED ONE 10/31 0724 DC .ROUTE Sugammadex Sodium 0 .STK-MED ONE 10/31 0715 DC IV Sodium Chloride 250 ML .STK-MED ONE 10/31 0703 DC IV Heparin Sodium 0 .STK-MED ONE 10/31 07 DC .ROUTE Norepinephrine 0 .STK-MED ONE 10/31 699 DC Bitartrate IV Propofol 20 ML .K-MED ONE 10/31 699 DC IV Rocuronium [place] 0 .[facility]-MED ONE 10/31 699 DC IV Heparin Sodium 0 .[facility] ONE 10/31 0658 DC 10/31 .ROUTE 0751 Heparin Sodium/ 2,000 ML .STK-MED ONE 10/31 0658 DC 10/31 Sodium Chloride IV 0751 Heparin Sodium/ 500 ML .[facility] ONE 10/31 657 DC 10/31 Sodium Chloride IV 0751 Bupivacaine HCl 0 .[facility] ONE 10/31 06 DC .ROUTE Acetaminophen 0 .[facility] ONE 10/31 642 DC .ROUTE Gabapentin 0 .[facility] ONE 10/31 642 DC .ROUTE Lidocaine HCl 0 .[facility] ONE 10/31 642 DC .ROUTE Acetaminophen 1,000 MG PREOP ONCALL 10/29 1145 DC PO 11/28 2359 Lactated Ringer's 1,000 ML PREOP ONCALL 10/29 1145 DC IV 11/28 2359 Lidocaine HCl 2 ML PREOP ONCALL 10/29 1145 DC LOCAL 11/28 2359 Lidocaine HCl 2 ML PREOP ONCALL 10/29 1145 DC LOCAL 11/28 2359 Sodium Chloride 500 ML PREOP ONCALL 10/29 1145 DC IV 11/28 2359 Sodium Chloride 500 ML PREOP ONCALL 10/29 1145 DC IV 11/28 2359 Sodium Chloride 1,000 ML PREOP ONCALL 10/29 1145 DC IV 11/28 2359 Sodium Chloride 5 ML ASDIR PRN 10/29 1145 AC IV 11/28 1144 Sodium Chloride 10 ML ASDIR PRN 10/29 1145 AC IV 11/28 1144 Sodium Chloride 250 ML ASDIR PRN 10/29 1145 DC IV 11/28 1144 Home Medications:ATORVASTATIN (LIPITOR) 40 MG PO BEDTIME DOXAZOSIN (CARDURA) 2 MG PO BEDTIME ASPIRIN 81 MG PO BEDTIME Dapagliflozin Propanediol (FARXIGA) 5 MG PO DAILY FUROSEMIDE (LASIX) 20 MG PO DAILY PRN EDEMA hydrALAZINE (APRESOLINE) 25 MG PO TID LISINOPRIL (ZESTRIL) 20 MG PO DAILY GABAPENTIN (NEURONTIN) 300 MG PO BEDTIME PRAMIPEXOLE DI-HCL (MIRAPEX) 0.25 MG PO TID [AREDS N2 EYES] 1 CAP PO BID CARBIDOPA/LEVODOPA (SINEMET 25/100 MG) 2 TAB PO TID SODIUM BICARBONATE 650 MG PO BID UMECLIDINIUM BRM/VILANTEROL TR (ANORO ELLIPTA 62.5-25 MCG INH) 1 PUFF INH RTDAILY AMIODARONE (PACERONE) 200 MG PO DAILY [PREVAGEN EXT STRENGT] 1 PO DAILY [BALANCE FRUIT] 3 TAB PO DAILY [BALANCE VEGGIES] 3 TAB PO DAILY [MINERALS IMMUNO 150] 3 TAB PO DAILY UBIDECARENONE (CO Q-10) (Unknown Dose) PO DAILY DOCUSATE SODIUM (COLACE) 100 MG PO DAILY I attest that the foregoing medication list in the medical record is true, accurate, and complete to the best of my knowledge. at 1655 RPT #:[id number] OF REPORTHPHistory and physical [id number]:18:00G.[id number] AVAvailable for patient [id number]:55:39 [facility] 2022-10-29 11:18:00 [id number] 09T11:18:[id number] [address] PATIENT NAME: ROBE RITCHIE JR ADMIT DATE: ACCOUNT NO: [id number] ROOM NO: AGE: 77 REPORT TYPE: eELECTROCARDIOGRAM REPORT SEX: M ADMITTING PHYSICIAN:Raoul Dailey MD ATTENDING PHYSICIAN:Raoul Dailey MD Order:[id number] Reason : PAT Test Date/Time Stamp:SatOct 29 2022 11:18:18Blood Pressure : / mmHGVent. Rate : 054 BPM Atrial Rate : 015 BPM P-R Int : 000 ms QRS Dur : 086 ms QT Int : 446 ms P-R-T Axes : 000 -44 087 degrees QTc Int : 422 ms Atrial fibrillation with slow ventricular responseLeft axis deviationNonspecific T wave abnormalityAbnormal ECGPRE_OPConfirmed by HELEN NICOLAS, OPAL ([id number]) on 10/29/2022 12:06:18 PM Referred By: Raoul Dailey Confirmed by:OPAL CERVANTES MD at 1206 PATIENT NAME: ROBE RITCHIE .[id number] AVAvailable for patient [id number]:06:47 HCACL
--- NOTE | 2023-09-30 15:32 | RAD REPORT ---
EXAM DESCRIPTION: CT - Head Brain Wo Cont - 09/30/2023 3:10 pm CLINICAL HISTORY: Alteration of awareness/confusion COMPARISON: 2015 TECHNIQUE: Computed axial tomography of the head was obtained. IV contrast was not requested. All CT scans are performed using dose optimization technique as appropriate and may include automated exposure control or mA/KV adjustment according to patient size. FINDINGS: An intracranial bleed is not seen The ventricles are normal in caliber No extra-axial fluid collection is noted. Mild cerebral atrophy. No significant hypodensity within the brain Fluid within the sinuses/ mastoids is not seen. IMPRESSION: No acute intracranial abnormality is seen If patient's symptoms persist MRI of the brain would be recommended
[2023-09-30] MEDS ORDERED: ONDANSETRON 4 MG/2 ML VIAL IV PRN (17:21)
[2023-09-30] MEDS: FUROSEMIDE 40 MG/4 ML VIAL IV SCH (17:21)
[2023-09-30] MEDS: INSULIN REGULAR (HUMAN) 100 UNIT/ML SQ SCH ×2 (17:21→21:00)
[2023-09-30] MEDS ORDERED: ACETAMINOPHEN 500 MG TAB PO PRN (17:21)
[2023-09-30] MEDS ORDERED: FUROSEMIDE 40 MG/4 ML VIAL ONE (18:36)
[2023-09-30] MEDS ORDERED: INSULIN REGULAR (HUMAN) 100 UNIT/ML ONE (18:46)
[2023-09-30 18:59] VITALS: BMI 37.1
[2023-09-30] MEDS ORDERED: PNEUMOCOCCAL VACCINE 0.5 ML IMVAC ONE (20:00)
[2023-09-30] MEDS ORDERED: INFLUENZA VACCINE (for 6+ mo) 0.5 ML DOSE IMVAC ONE (20:00)
[2023-09-30 22:41] LABS: Potassium 3.5 mEq/L (3.5-5.1)
--- NOTE | 2023-10-01 03:28 | CON ---
Date of Consultation: 09/30/2023 Chief Complaint: Acute on chronic heart failure, cardiorenal syndrome. History Of Present Illness: The patient is an 78-year-old man with past medical history of atrial fi brillation, diabetes mellitus non-insulin dependent, Parkinson's, hypertension. He presented to the emergency room with generalized weakness, shortness of breath, difficulty with ambulation. The patie nt is not a good historian. According to his family, patient was not feeling well and he became leth argic and short of breath over the last 24 hours prior to admission. He was complaining of cough and shortness of breath. He also developed loose bowel movements and worsening of the lower extremity e wanda. The patient denied chest pain, denied abdominal pain, nausea, vomiting. The patient was evalu ated for possible pneumonia and is admitted to the hospital for severe sepsis without septic shock. Blood pressure is stable. Patient remains hemodynamically stable, although laboratory evaluation neftail wed elevated lactic acid of 2.3, severe leukocytosis, WBC 15.9, BUN is 26, creatinine 2.04. Patient has underlying chronic kidney disease stage 3. Previously creatinine level was ranging from 1.4 to 1 .6. The patient was found to have acute on chronic kidney injury, mild hypokalemia and Nephrology co nsultation is requested. The patient had urinalysis done and it is pending. Chest x-ray show pulmon ken vascular congestion, mild bibasilar opacities, which may represent pneumonia or atelectasis. Hea rt is moderately enlarged. Review of Systems: General: The patient is not a good historian, although he denies syncope. Eyes: Denies new vision changes. Ears, Nose, Mouth And Throat: Denies sore throat, earache. Respiratory: Has shortness of breath, cough, generalized weakness. He denies chest pain, syncope. GI: Denies melena, hematemesis. : Denies dysuria, hematuria. 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 Family History: Sister, diabetes. Father, lung disease. Social History: Negative for tobacco, alcohol, and negative for drugs. Physical Examination: General: The patient remains confused, although he can answer few questions. HEENT: Atraumatic, normocephalic. Neck: Supple. No bruits. Respiratory: Diminished breath sounds bilaterally at bases. No rhonchi. Cardiovascular: S1, S2. No pericardial friction, rub. Abdomen: Soft, benign, nontender. Extremities: Slight edema in both ankles. Skin: Warm and dry. Neurologic: Moving extremities. Cranial nerves intact. Laboratory Data: WBC 15.9, hemoglobin 10.3, platelet count 179,000. PT 13.6, INR 1.24. Sodium 134, potassium 3.4, BUN 26, creatinine 2.04, glucose 241, AST 13, ALT 13, AP 167. Impression: 1.Acute on chronic kidney injury, baseline previously was available and it was ranging from 1.4-1.6. On occasions, creatinine level was up to 1.8 during acute exacerbation of congestive heart failure with cardiorenal syndrome. Currently, patient is admitted for cardiorenal syndrome, congestive heart failure exacerbation, possible pneumonia and severe sepsis without shock secondary to pneumonia. Sarwat aggarwal has metabolic encephalopathy secondary to sepsis. The patient is undergoing cardiac workup to rule out acute coronary syndrome. The patient will require diuretics for cardiorenal syndrome and co ngestive heart failure. CT scan of the head did not show acute abnormalities, although the patient h as altered mental status. Several workups for altered mental status will be conducted by primary abril mora. 2.The plan is to re-evaluate renal ultrasound to rule out urinary retention. Monitor urine output a nd electrolytes. Continue diuretics. The patient has severe coronary artery disease. Recommend Car diology consultation. Patient was previously evaluated with right cardiac cath as well as left cardi ac cath. He had severe [place] coronary artery disease, moderate aortic valve stenosis and severely e levated filling pressure and severe pulmonary hypertension. 3.Hypokalemia. Monitor magnesium level, replace electrolytes as needed according to lab results. 4.Atrial fibrillation. The patient will continue beta zhao. 5.Acute on chronic kidney injury. Monitor renal function daily. Continue diuretics and monitor uri ne output. 6.Diabetes mellitus, non-insulin dependent. The patient may require insulin during this admission. 7.Encephalopathy. Recommend to check thyroid function. EB/MODL Voice ID: [id number] Report ID: [id number]
[2023-10-01 03:30] LABS: Absolute Lymphocytes (CBC) 0.7 K/uL (0.7-4.9); Hematocrit 30.6 % (39.6-49.0); Lymphocytes % 5.5 % (15.3-44.8); MCV 69.3 fL (80-100); MPV 8.6 fL (7.6-11.3); Platelets 163 thou/uL (152-406); RBC Red Blood Cell Count 4.41 M/uL (4.33-5.43)
[2023-10-01 03:40] LABS: Magnesium 2.4 mg/dL (1.6-2.4); Potassium 3.1 mEq/L (3.5-5.1)
--- NOTE | 2023-10-01 06:58 | P.CNS ---
Date of Consult: 10/01/23 Reason for Consult: Acute on chronic Congestive heart failure Requesting Physician: Yovani Schmid Chief Complaint: acute on chronic heart failure History of Present Illness: Mr. Swartz is an 78yo patient with a history of CAD, CABG, recent heart cath, a. b- fib with pacemaker, HTN, HLD, IDDM, essential tremor, and CKD who presented to the ED with cough, SOB, generalized weakness over the past week. He was diagnosed in the ED with pneumonia, CHF, and worsening over baseline renal disease. He states that he had the cardiac cath last month and saw Dr. Dailey in follow up last week. Mr. Swartz also saw Dr. Donald and was advised to increase lasix 40mg daily to 80mg daily x 1 week. In follow up later with Dr. Dailey he suggested staying on 80mg daily. Home medications list reviewed: Yes - Past Medical/Surgical History Diabetic: Yes -: Hypertension -: DM type 2 -: Chronic atrial fibrillation -: Coronary artery disease -: Benign Tremors -: CKD 4 -: CABG -: Rotator cuff surgery Psychosocial/ Personal History: Patient lives at home with his - Family History Sister Medical History: Diabetes Father Medical History: Lung disease Notes: emphysema - Social History Smoking Status: Unknown if ever smoked Alcohol use: No CD- Drugs: No Caffeine use: No Place of Residence: Home <Raoul Dailey - Last Filed: 10/01/23 06:51> <Yumiko Ramon - Last Filed: 10/01/23 12:42> Allergies codeine Allergy (Verified 09/17/23 09:11) Itching Penicillins Allergy (Verified 09/17/23 09:11) Rash Home Medications: Atorvastatin Calcium [Lipitor] 40 mg PO BEDTIME 05/12/18 Aspirin 1 tab PO DAILY 10/10/20 Doxazosin Mesylate 1 tab PO BEDTIME 10/10/20 Gabapentin 300 mg PO BEDTIME 10/10/20 Dapagliflozin Propanediol [Farxiga] 1 tab PO DAILY 04/05/22 Carbidopa/Levodopa [Carbidopa-Levodopa 25-100 Tab] 2 tab PO TID 09/20/22 Pramipexole [Mirapex*] 1 tab PO TID 09/20/22 Furosemide [Lasix*] 80 mg PO DAILY PRN 10/10/22 Insulin Glargine/Lixisenatide [[place] 100 Unit-33 Mcg/ml Pen] 20 units SQ DAILY 09/30/23 Hydralazine [Apresoline] 25 mg PO TID 10/01/23 Metoprolol Tartrate [Lopressor] 25 mg PO BID 10/01/23 Review of Systems 10-point ROS is otherwise unremarkable General: Weakness Respiratory: Cough, Shortness of Breath, SOB with Excertion Cardiovascular: Orthopnea, Edema Neurological: Weakness <Raoul Dailey - Last Filed: 10/01/23 06:51> Physical Examination Temp Pulse Resp BP Pulse Ox 97.9 F 70 18 136/68 99 10/01/23 04:00 10/01/23 04:00 10/01/23 04:00 10/01/23 04:00 10/01/23 04:00 General: In no apparent distress, Oriented x3 HEENT: Atraumatic, Normocephalic Neck: JVD not distended Respiratory: Crackles/rales Cardiovascular: Edema (1+pitting, pt describes improvement) Capillary refill: <2 Seconds Gastrointestinal: Normal bowel sounds, Soft and benign Musculoskeletal: No clubbing Integumentary: No rashes Neurological: Normal speech, Other (essential tremor) External genitalia: Deferred Rectal: Deferred Laboratory Data (last 24 hrs) 09/30/23 09/30/23 09/30/23 11:35 11:35 11:35 WBC 15.90 H Hgb 10.3 L Hct 33.7 L Plt Count 179 PT 13.6 H INR 1.24 APTT 33.9 Sodium 134 L Potassium 3.4 L BUN 26 H Creatinine 2.04 H Glucose 241 H Total Bilirubin 1.6 H AST 13 L ALT 13 L Alkaline Phosphatase 167 H <Raoul Dailey - Last Filed: 10/01/23 06:51> Temp Pulse Resp BP Pulse Ox 98.0 F 70 16 174/74 H 98 10/01/23 12:00 10/01/23 12:00 10/01/23 12:00 10/01/23 12:00 10/01/23 12:00 <Yumiko Ramon - Last Filed: 10/01/23 12:42> - Problems (1) CKD (chronic kidney disease) stage 4, GFR 15-29 ml/min Current Visit: Yes Status: Acute Plan: Monitor creatinine, electrolytes, low salt diet, avoid nephrotoxic medications, continue lasix 40mg IV daily for now. Nephrology consulted (2) Congestive heart failure Current Visit: No Status: Acute Plan: Continue beta blockers, pulmonary toilet, lasix, low salt diet, pt with iron deficiency anemia, check Iron level (3) Hypertension Current Visit: No Status: Acute Plan: Continue metoprolol, hydralazine for now Qualifiers: Hypertension type: primary hypertension Qualified Code(s): I10 - Essential (primary) hypertension (4) Pneumonia Current Visit: No Status: Acute Plan: IV abx per Medicine. Qualifiers: Pneumonia type: due to unspecified organism Laterality: bilateral Lung location: lower lobe of lung Qualified Code(s): J18.9 - Pneumonia, unspecified organism <Raoul Dailey - Last Filed: 10/01/23 06:51> - Problems (1) Congestive heart failure Current Visit: No Status: Acute Plan: Follow up outpatient post hospitalization, cardiology signed off <Yumiko Ramon - Last Filed: 10/01/23 12:42>
[2023-10-01] MEDS: INSULIN REGULAR (HUMAN) 100 UNIT/ML SQ SCH ×4 (07:30→21:53)
--- NOTE | 2023-10-01 08:19 | P.PN ---
Subjective Date of Service: 10/01/23 Chief Complaint: acute on chronic heart failure reports feelimg better, non productive cough, - Physical Exam General: Confused HEENT: Atraumatic, Normocephalic Neck: Supple, 2+ carotid pulse no bruit Respiratory: crackles Cardiovascular: Regular rate/rhythm, Edema (BLE ) Gastrointestinal: Normal bowel sounds, Soft and benign Musculoskeletal: No clubbing, No swelling Integumentary: Other (dry skin BLE) Neurological: Other (confused, lethargic) Review of Systems PER HPI Physical Examination - Vital Signs Temperature: 97.9 F Blood Pressure: 136/68 Pulse: 70 Respirations: 18 Pulse Ox (%): 99 - Studies Laboratory Data (last 24 hrs) 09/30/23 09/30/23 09/30/23 11:35 11:35 11:35 WBC 15.90 H Hgb 10.3 L Hct 33.7 L Plt Count 179 PT 13.6 H INR 1.24 APTT 33.9 Sodium 134 L Potassium 3.4 L BUN 26 H Creatinine 2.04 H Glucose 241 H Total Bilirubin 1.6 H AST 13 L ALT 13 L Alkaline Phosphatase 167 H Microbiology Data (last 24 hrs): 09/30/23 11:40 Nasopharnyx Influenza Type A Antigen Screen - Final 09/30/23 11:40 Nasopharnyx Influenza Type B Antigen Screen - Final Assessment And Plan - Plan Assessment/Plan Acute on chronic heart failure, ukn baseline cardiomegealy severe sepsis without shock secondary to pneumonia improving Metabolic encephalopathy secondary to sepsis cardiology consult, ECHO ordored sepsis gentle IVF due to known heart failure trend wbc, lactic leukocytosis 15.90, elevated lactic wbc-12.50, lactic-1.5 SARS negative, UA unremarkable chest x-ray FINDINGS: Pulmonary vascular congestion. Mild bibasilar opacities may represent pneumonia or atelectasis. Heart is moderately enlarged.Pacemaker leads in place. Postsurgical changes involve the ches, BNP 3853, CT Head IMPRESSION: No acute intracranial abnormality is seen If patient's symptoms persist MRI of the brain would be recommended BNP 3853, increased 5305, gentle diureiss C/RHC 09/19/2023 1. Left main is 100% occluded. 2. RCA; diffuse 90% and then becomes 100% occluded. Graft Study: 1. Widely patent OBREGON to LAD. 2. Widely patent SVG to RCA. 3. Occluded SVG to OM. 4. LVEDP was elevated between 25 and 30 mmHg. Right heart cath numbers: RA pressure is 25/29, mean 26. RV pressure 95/17, mean of 26. PA pressure was 95/40, mean of 59. Pulmonary wedge pressure was between 40 and 45, and the cardiac output was 4.66 L/minute. Mean gradient across the aortic valve was 18 to 20 mmHg and valve area was 1.5 sq cm. Conclusions: 1. Severe [place] coronary artery disease with occluded RCA and left main with patent OBREGON to LAD and SVG graft to RCA. 2. Severely elevated filling pressure and severe pulmonary hypertension. 3. Moderate aortic valve stenosis as outlined above. card plan increase lasix for 40 mg PO BID, FU card microcytic anemia HH10.3, 33.7,trend HH,-HGB 9.3 hyponatremia sodium 134,, trend electrolytes, replace prn hypokalemia potassium 3.4 trend electroyltes replace PRN atrial fibrillation resume appop home meds acute on chronic kidney injury unk baseline Neph consult trend kidney function acute on chronic kidney injury unknown baseline BUN 26 creatinine 2.04 diabetes [id number]-tevfizimx SSI, Parkinson's hypertension resume approp home meds Diet Renal Full Code DVT heparin, Discharge Plan: Home - Code Status/Comfort Care Code Status: Full Code Physician Review: Patient Assessed, Agree with Above Assessment and Plan Critical Care: No Time Spent Managing PTS Care (In Minutes): 35
[2023-10-01] MEDS ORDERED: POTASSIUM CL SA 10 MEQ TAB PO ONE ×2 (09:00→16:14)
[2023-10-01] MEDS: FUROSEMIDE 40 MG/4 ML VIAL IV SCH ×3 (09:37→21:51)
[2023-10-01] MEDS: AZITHROMYCIN IV 500 MG in NA CHLORIDE 0.9% 250 ML IVPB SCH (09:38)
[2023-10-01] MEDS: CEFTRIAXONE 1,000 MG in NA CHLORIDE 0.9% 50 ML IVPB SCH (09:38)
[2023-10-01 09:55] LABS: Potassium 3.5 mEq/L (3.5-5.1)
--- NOTE | 2023-10-01 13:43 | EKG ---
Test Date: 2023-09-30 Test Time: 11:46:18 Sr. Payroll Manager: HORACE MEASUREMENT RESULTS: Intervals: Rate: 70 RI: QRSD: 186 QT: 464 QTc: 501 Ambrose: P: RI: QRS: -42 T: 144 INTERPRETIVE STATEMENTS: V apced rhythm Electronically Signed On 10-01-23 13:40:09 [employer] WORKER by Raoul Dailey
[2023-10-01] MEDS ORDERED: HYDRALAZINE HCL 20 MG/ML VIAL IV PRN (14:02)
[2023-10-01] MEDS ORDERED: ALBUTEROL 2.5 MG/3 ML NEB SOL NEB PRN (16:03)
[2023-10-01] MEDS: IPRATROPIUM BROM 0.5MG/2.5ML NEB SCH ×2 (16:34→19:51)
[2023-10-01] MEDS ORDERED: SOD FERRIC GLUC COMPLX/SUCROSE 250 MG in NA CHLORIDE 0.9% 250 ML IV SCH (17:00)
--- NOTE | 2023-10-01 17:34 | PN ---
Date of Progress Note: 10/01/2023 Subjective: The patient was admitted with acute kidney injury secondary to cardiorenal. The patient still has shortness of breath. Objective: Vital Signs: Blood pressure 136/68, pulse of 70, afebrile. Chest: Crackles, bilateral. Heart: S1, S2. Systolic murmur. Abdomen: Soft, nontender. Extremities: Plus edema. Neurologic: Alert. No focality. Laboratory Data: Hemoglobin 9.4, sodium 137, potassium 3.5, bicarb 30, BUN 27, creatinine 1.7, continue to improve. GFR of 39, calcium 8.7, iron saturation of 39. Urinalysis negative for infection. Current Medications: The patient on, includes ceftriaxone, azithromycin, Lasix 40 b.i.d., Zofran, KCl. Assessment And Plan: 1. Acute kidney injury on chronic kidney disease secondary to cardiorenal. Patient still on the overvolume side. I am going to go ahead and continue the patient on the diuresis and we will monitor the patient closely. I am going to increase the Lasix to t.i.d. 2. Hypertension. Continue to utilize blood pressure for more diuresis. 3. Iron-deficiency anemia with the presence of congestive heart failure exacerbation. I will start the patient on IV iron and we will follow up with the Primary. 4. Congestive heart failure with exacerbation. As above. 5. Hypokalemia. We will supplement. time spend exam the patient face to face reviewing data lab and radiology , placing order discussing the case with the patient and nursing staff , discussing with the hospitalist >35 min JT Voice ID: [id number] Report ID: [id number] DRAKE
[2023-10-01] MEDS: BENZONATATE 100 MG CAP PO PRN (21:54)
[2023-10-02] MEDS: IPRATROPIUM BROM 0.5MG/2.5ML NEB SCH ×3 (01:13→13:52)
[2023-10-02] MEDS ORDERED: MELATONIN 5 MG TABLET PO PRN (01:14)
[2023-10-02 03:53] LABS: Absolute Lymphocytes (CBC) 0.8 K/uL (0.7-4.9); Hematocrit 30.4 % (39.6-49.0); MPV 7.7 fL (7.6-11.3); Platelets 168 thou/uL (152-406); RBC Red Blood Cell Count 4.43 M/uL (4.33-5.43)
[2023-10-02 03:58] LABS: MCV 68.6 fL (80-100)
[2023-10-02 04:42] LABS: Magnesium 2.2 mg/dL (1.6-2.4); Potassium 3.6 mEq/L (3.5-5.1)
--- NOTE | 2023-10-02 07:26 | P.PN ---
Subjective Date of Service: 10/02/23 Chief Complaint: acute on chronic heart failure Subjective: Improving reports feeling better, non productive cough, - Physical Exam General: Confused HEENT: Atraumatic, Normocephalic Neck: Supple, 2+ carotid pulse no bruit Respiratory: respirations, equal, unabored Cardiovascular: Regular rate/rhythm, Edema (BLE ) Gastrointestinal: Normal bowel sounds, Soft and benign Musculoskeletal: No clubbing, No swelling Neurological: Other AOX3 Review of Systems PER HPI Physical Examination - Vital Signs Temperature: 98.2 F Blood Pressure: 147/61 Pulse: 68 Respirations: 20 Pulse Ox (%): 95 Assessment And Plan - Plan Assessment/Plan Acute on chronic heart failure, ukn baseline cardiomegealy severe sepsis without shock secondary to pneumonia improving Metabolic encephalopathy secondary to sepsis cardiology consult, ECHO ordored sepsis gentle IVF due to known heart failure trend wbc, lactic leukocytosis 15.90, elevated lactic wbc-12.50, lactic-1.5, 11.50 SARS negative, UA unremarkable chest x-ray FINDINGS: Pulmonary vascular congestion. Mild bibasilar opacities may represent pneumonia or atelectasis. Heart is moderately enlarged.Pacemaker leads in place. Postsurgical changes in volve the ches, BNP 3853, CT Head IMPRESSION: No acute intracranial abnormality is seen If patient's symptoms persist MRI of the brain would be recommended increased after sepis bolus, BNP [phone] NEPH ADDED LASIX 40 IV TID, nebs, Tessalon Perles added for cough LHC/RHC 09/19/2023 1. Left main is 100% occluded. 2. RCA; diffuse 90% and then becomes 100% occluded. Graft Study: 1. Widely patent OBREGON to LAD. 2. Widely patent SVG to RCA. 3. Occluded SVG to OM. 4. LVEDP was elevated between 25 and 30 mmHg. Right heart cath numbers: RA pressure is 25/29, mean 26. RV pressure 95/17, mean of 26. PA pressure was 95/40, mean of 59. Pulmonary wedge pressure was between 40 and 45, and the cardiac output was 4.66 L/minute. Mean gradient across the aortic valve was 18 to 20 mmHg and valve area was 1.5 sq cm. Conclusions: 1. Severe [place] coronary artery disease with occluded RCA and left main with patent OBREGON to LAD and SVG graft to RCA. 2. Severely elevated filling pressure and severe pulmonary hypertension. 3. Moderate aortic valve stenosis as outlined above. card plan increase lasix for 40 mg PO BID, FU card microcytic anemia HH10.3, 33.7,trend HH,-HGB 9.3 hyponatremia sodium 134,, trend electrolytes, replace prn hypokalemia potassium 3.4 trend electroyltes replace PRN atrial fibrillation resume appop home meds acute on chronic kidney injury unk baseline Neph consult trend kidney function acute on chronic kidney injury unknown baseline BUN 26 creatinine 2.04 diabetes ivy-cpfsoys-iyrbjtbsi SSI, Parkinson's hypertension resume approp home meds Diet Renal Full Code DVT heparin, Discharge Plan: Home - Code Status/Comfort Care Code Status: Full Code Physician Review: Patient Assessed, Agree with Above Assessment and Plan Critical Care: No Time Spent Managing PTS Care (In Minutes): 35
[2023-10-02] MEDS: INSULIN REGULAR (HUMAN) 100 UNIT/ML SQ SCH ×3 (07:30→17:50)
[2023-10-02] MEDS: CEFTRIAXONE 1,000 MG in NA CHLORIDE 0.9% 50 ML IVPB SCH (08:10)
[2023-10-02] MEDS: AZITHROMYCIN IV 500 MG in NA CHLORIDE 0.9% 250 ML IVPB SCH (08:12)
[2023-10-02] MEDS ORDERED: FUROSEMIDE 40 MG TABLET PO PRN (08:35)
[2023-10-02] MEDS: BENZONATATE 100 MG CAP PO PRN (08:40)
[2023-10-02] MEDS: FUROSEMIDE 40 MG/4 ML VIAL IV SCH ×2 (08:40→15:15)
[2023-10-02] MEDS ORDERED: INSULIN GLARGINE 100 UNIT/ML SQ SCH (09:00)
[2023-10-02] MEDS ORDERED: ASPIRIN 81 MG CHEWABLE TABLET PO SCH (09:00)
[2023-10-02] MEDS ORDERED: METOPROLOL TAR 25 MG TAB PO SCH (09:00)
[2023-10-02] MEDS ORDERED: POTASSIUM CL SA 10 MEQ TAB PO ONE (09:00)
[2023-10-02] MEDS: HYDRALAZINE HCL 25 MG TABLET PO SCH ×2 (10:11→15:14)
[2023-10-02] MEDS: CARBIDOPA/LEVODOPA 25/100 TAB PO SCH ×2 (10:11→15:14)
[2023-10-02] MEDS: PRAMIPEXOLE 0.25 MG TAB PO SCH ×2 (10:12→15:14)
[2023-10-02] MEDS ORDERED: FUROSEMIDE 40 MG/4 ML VIAL IV ONE (11:15)
[2023-10-02] MEDS ORDERED: NITROGLYCERIN 0.2 MG/HR (5 MG) PATCH TD SCH (12:00)
--- NOTE | 2023-10-02 12:26 | RAD REPORT ---
EXAM DESCRIPTION: [facility] Single View10/02/2023 12:10 pm CLINICAL HISTORY: Chest pain COMPARISON: September 30, 2023 FINDINGS: Pulmonary vascular congestion. Moderately enlarged. Postsurgical changes involve the chest. Pacemaker leads in place normal size
--- NOTE | 2023-10-02 13:08 | PN ---
Date of Progress Note: 10/02/2023 Subjective: The patient was admitted to the hospital with acute kidney injury secondary to cardiorenal and hypokalemia. The patient did well. Objective: Vital Signs: Blood pressure 137/51, pulse of 70, afebrile. The patient had urine output of 1 L, negative of 400. Chest: Crackles, bilateral base. Heart: S1, S2. Systolic murmur. Abdomen: Soft, nontender. Extremities: Plus edema. Neurologic: Alert. No focality. Laboratory Data: Hemoglobin 9.5. Sodium 139, potassium 3.6, bicarb 29, BUN 29, creatinine 1.7, GFR 29. BNP 7900, trending up. Current Medications: The patient is on include: 1. Azithromycin. 2. Ceftriaxone. 3. IV iron. 4. Atorvastatin. 5. Cardura. 6. Lasix. 7. Hydralazine. 8. Sinemet. 9. Gabapentin. 10. Lasix 40 t.i.d. Assessment And Plan: 1. Acute kidney injury on chronic kidney disease secondary to cardiorenal on the recovery phase. We are going to continue diuresis. We will monitor the patient. I am going to go ahead and get chest x-ray for better evaluation of the fluid status for the patient and we will follow up. I will give the patient extra dose of Lasix today and we will monitor the patient. 2. Hypertension. Continue to utilize blood pressure for more diuresis. Currently, blood pressure more controlled. We will follow up. We will consider taper down his Cardura if needed and we will follow up. I am going to go ahead and add nitroglycerin. We will follow up the patient. 3. Hypokalemia. We will supplement. 4. Congestive heart failure with exacerbation as above. 5. Respiratory failure, combined COPD and congestive heart failure as above. time spend exam the patient face to face reviewing data lab and radiology , placing order discussing the case with the patient and nursing staff , discussing with the hospitalist >35 min NURIS/TIFFANIE Voice ID: [id number] Report ID: [id number] DRAKE
--- NOTE | 2023-10-02 13:29 | ECHO ---
HEIGHT: 5 ft 6 in WEIGHT: 230 lb 0 oz DATE OF STUDY: 10/02/[address]: Monik Leblanc NEON SIGN WORKERRoopa 2-DIMENSIONAL: YES M.MODE: YES DOPPLER: YES COLOR FLOW: YES TDS: YES PORTABLE: YES DEFINITY: BUBBLE STUDY: DIAGNOSIS: ELEVATED BNP, RULE OUT CONGESTIVE HEART FAILURE CARDIAC HISTORY: CATHERIZATION: YES SURGERY: YES PROSTHETIC VALVE: PACEMAKER: MEASUREMENTS (cm) DIASTOLIC (NORMALS) SYSTOLIC (NORMALS) IVSd 1.2 (0.6-1.2) LA Diam (1.9-4.0) LVEF 69% LVIDd 4.7 (3.5-5.7) LVIDs 2.9 (2.0-3.5) %FS 39% LVPWd 1.3 (0.6-1.2) Ao Diam 2.6 (2.0-3.7) 2 DIMENSIONAL ASSESSMENT: RIGHT ATRIUM: NORMAL LEFT ATRIUM: ENLARGED RIGHT VENTRICLE: NORMAL LEFT VENTRICLE: LEFT VENTRICULAR HYPERTROPHY TRICUSPID VALVE: MILD TRICUSPID REGURGITATION MITRAL VALVE: MILD MITRAL REGURGITATION PULMONIC VALVE: NORMAL AORTIC VALVE: CALCIFIED WITH AORTIC STENOSIS PERICARDIAL EFFUSION: NONE AORTIC ROOT: NORMAL LEFT VENTRICULAR WALL MOTION: NORMAL DOPPLER/COLOR FLOW: SEE BELOW COMMENTS: 1. NORMAL LEFT VENTRICULAR EJECTION FRACTION 60-65% WITH NORMAL WALL MOTION 2. SEVERE DIASTOLIC DYSFUNCTION 3. HEAVILY CALCIFIED AORTIC VALVE WITH MODERATE AORTIC STENOSIS 4. LEFT ATRIAL ENLARGEMENT 5. MILD CONCENTRIC LEFT VENTRICULAR HYPERTROPHY 6. SEVERE PULMONARY HYPERTENSION WITH RIGHT VENTRICULAR SYSTOLIC PRESSURE GREATER THAN 80 mmHg 7. MILD MITRAL REGURGITATION, TRICUSPID REGURGITATION TECHNOLOGIST: VENESSA JOHNSON
--- NOTE | 2023-10-02 13:34 | P.DS ---
Admission Date: 09/30/23 Discharge Date: 10/02/23 Disposition: ROUTINE DISCHARGE Reason for Admission: acute on chronic heart failure Brief History of Present Illness: 78-year-old male with a past medical history of atrial fibrillation, diabetes ngh-tyfqqew-uelmbzhrd, Parkinson's, hypertension, presents to the emergency room with generalized weakness. HPI limited, spoke with patients son, he reports he was ok yesterday, has known reported weakness, Son reports not feeling well and is worse than the last 24 hours. Reports associated cough and shortness of breath with loose stools, reports lower extremity edema. Denies chest pain, abdominal pain, NV. r Plan to admit for - Severe sepsis without septic shock, Pneumonia, unspecified organism, Dyspnea, unspecified, acute on chronic heart failure. Laboratory evaluation with elevated lactic 2.3, leukocytosis 15.90, microcytic anemia 10.3, 33.7, mild hyponatremia 134, mild hypokalemia 3.4, acute on chronic kidney injury unknown baseline BUN 26 creatinine 2.04, SARS negative, UA unremarkable chest x-ray FINDINGS: Pulmonary vascular congestion. Mild bibasilar opacities may represent pneumonia or atelectasis. Heart is moderately enlarged.Pacemaker leads in place. Postsurgical changes involve the ches, BNP 3853, - Physical Exam General: Confused HEENT: Atraumatic, Normocephalic Neck: Supple, 2+ carotid pulse no bruit Respiratory: respirations, equal, unabored Cardiovascular: Regular rate/rhythm, Edema (BLE ) Gastrointestinal: Normal bowel sounds, Soft and benign Musculoskeletal: No clubbing, No swelling Neurological: Other AOX3 Hospital Course: Assessment/Plan Acute on chronic heart failure, ukn baseline improved cardiomegealy severe sepsis without shock secondary to pneumonia improved Metabolic encephalopathy secondary to sepsis-resolved cardiology consult, ECHO ordored sepsis gentle IVF due to known heart failure trend wbc, lactic leukocytosis 15.90, elevated lactic wbc-12.50, lactic-1.5 SARS negative, UA unremarkable chest x-ray FINDINGS: Pulmonary vascular congestion. Mild bibasilar opacities may represent pneumonia or atelectasis. Heart is moderately enlarged.Pacemaker leads in place. Postsurgical changes in volve the ches, BNP 3853, CT Head IMPRESSION: No acute intracranial abnormality is seen If patient's symptoms persist MRI of the brain would be recommended BNP 3853, increased 5305, gentle diureiss Plan to increase lasix for 40 mg 2 tabs daily, follow up with cardiology after discharge Physician Discharge Instructions: -DC IV and DC home -Follow-up with PCP in 1 to 2 weeks -Please call Dr. Schmid at [phone] if any questions regarding hospital stay -Please call nursing station at [phone] if any nursing or medication questions -Return to the emergency room if symptoms worsen Diet: Low sodium Activity: Fall precautions Vital Signs/Physical Exam: Temp Pulse Resp BP Pulse Ox 98.3 F 70 16 119/63 95 10/02/23 12:00 10/02/23 12:00 10/02/23 12:00 10/02/23 12:00 10/02/23 12:00 Laboratory Data at Discharge: WBC 11.50 thou/uL (4.3-10.9) H 10/02/23 03:11 Hgb 9.5 g/dL (13.6-17.9) L 10/02/23 03:11 Hct 30.4 % (39.6-49.0) L 10/02/23 03:11 Plt Count 168 thou/uL (152-406) 10/02/23 03:11 PT 13.6 SECONDS (9.5-12.5) H 09/30/23 11:35 INR 1.24 09/30/23 11:35 APTT 33.9 SECONDS (24.3-36.9) 09/30/23 11:35 Sodium 139 mEq/L (136-145) 10/02/23 03:11 Potassium 3.6 mEq/L (3.5-5.1) 10/02/23 03:11 BUN 29 mg/dL (7-18) H 10/02/23 03:11 Creatinine 1.71 mg/dL (0.70-1.30) H 10/02/23 03:11 Glucose 180 mg/dL (74-106) H 10/02/23 03:11 Magnesium 2.2 mg/dL (1.6-2.4) 10/02/23 03:11 Total Bilirubin 1.6 mg/dL (0.2-1.0) H 09/30/23 11:35 AST 13 U/L (15-37) L 09/30/23 11:35 ALT 13 U/L (16-61) L 09/30/23 11:35 Alkaline Phosphatase 167 U/L (45-117) H 09/30/23 11:35 Home Medications: Atorvastatin Calcium [Lipitor] 40 mg PO BEDTIME 05/12/18 Aspirin 1 tab PO DAILY 10/10/20 Doxazosin Mesylate 1 tab PO BEDTIME 10/10/20 Gabapentin 300 mg PO BEDTIME 10/10/20 Dapagliflozin Propanediol [Farxiga] 1 tab PO DAILY 04/05/22 Carbidopa/Levodopa [Carbidopa-Levodopa 25-100 Tab] 2 tab PO TID 09/20/22 Pramipexole [Mirapex*] 1 tab PO TID 09/20/22 Insulin Glargine/Lixisenatide [Soliqua 100 Unit-33 Mcg/ml Pen] 20 units SQ DAILY 09/30/23 Hydralazine [Apresoline*] 25 mg PO TID 10/01/23 Metoprolol Tartrate [Lopressor*] 25 mg PO BID 10/01/23 Aspirin Chewable [Aspirin Chewable*] 81 mg PO DAILY tab.chew 10/02/23 Dapagliflozin Propanediol [Farxiga] 1 tab PO DAILY 10/02/23 Doxazosin [Cardura*] 1 mg PO BEDTIME tab 10/02/23 Furosemide [Lasix*] 80 mg PO DAILY PRN tab 10/02/23 Insulin -Regular Human [Novolin -R*] See Protocol SQ ACHS ml 10/02/23 Melatonin 10 mg PO BEDTIME PRN PRN 10/02/23 Nitroglycerin Patch [Transderm-Nitro 0.2MG/Hr Patch*] 5 mg TD Q24H 10/02/23 Followup: Manuel Gandhi MD [Primary Care Provider] -
[2023-10-02 13:36] VITALS: TEMP 98.2
[2023-10-02 17:22] VITALS: BP 147/61
[2023-10-02] MEDS ORDERED: ATORVASTATIN 40 MG TAB PO SCH (21:00)
[2023-10-02] MEDS ORDERED: DOXAZOSIN 2 MG TAB PO SCH ×2 (21:00)
[2023-10-02] MEDS ORDERED: GABAPENTIN 300 MG CAP PO SCH (21:00)
[2023-10-02 22:25] VITALS: O2SAT 97
== END 2023-10-02 21:55 | disposition home health service (06) | DRG 871 ==
LOC: ER 10:50 → ERHOLD 14:04 → 2ND 20:15
PROVIDERS: ADMIT Hospitalist; ATTEND Hospitalist
DX: A41.9 Sepsis, unspecified organism (principal); G93.41 Metabolic encephalopathy; I50.33 Acute on chronic diastolic (congestive) heart failure; J18.9 Pneumonia, unspecified organism; N17.9 Acute kidney failure, unspecified; I48.20 Chronic atrial fibrillation, unspecified; E87.1 Hypo-osmolality and hyponatremia; I13.0 Hypertensive heart and chronic kidney disease with heart failure and stage 1 through stage 4 chronic kidney disease, or unspecified chronic kidney disease; N18.4 Chronic kidney disease, stage 4 (severe); E11.22 Type 2 diabetes mellitus with diabetic chronic kidney disease; R65.20 Severe sepsis without septic shock; D50.9 Iron deficiency anemia, unspecified; E87.6 Hypokalemia; I25.10 Atherosclerotic heart disease of native coronary artery without angina pectoris; G20.A1 Parkinson's disease without dyskinesia, without mention of fluctuations; Z95.1 Presence of aortocoronary bypass graft; R53.1 Weakness; Z95.0 Presence of cardiac pacemaker; Z11.52 Encounter for screening for COVID-19
CPT/HCPCS: 36415; 70450; 71045; 74176; 80048; 80053; 81001; 82947; 83540; 83605; 83735; 83880; 84132; 84466; 85025; 85610; 85730; 87040; 87635; 87804; 93005; 93306; 94640; 94760; 96365; 96367; 99285; J0696; J1815; J1940; J2916; J7050; J7644

== ENCOUNTER 2024-04-11 15:10 | Inpatient (IN) | payer OTHER ==
--- OUTSIDE RECORDS SUMMARY | 2024-04-11 15:16 | XMS REPORT | Continuity of Care Document ---
Author Name Unknown Address [address] [facility] [address] [place] [address] [facility] Address [address] [facility]. [address] [place] [address] Care Team Providers Care Skeiner Name Role Phone None, None Primary Care Physician Unavailab JENNIFER Gutierrez Attending Clinician Unavail able Jennifer Martinez MD Attending Clinician JOSEE LI Attending Clinician Unavailab EH Burton Attending Clinician Unavailable Josee Plasencia APRN Attending Clinician ARAMIS THOMAS Attending Clinician Unavailable Mickey Briggs Attending Clinician Unavailable Kristina Hodge Attending Clinician Unavailable JONNY TODD Attending Clinician Unavailable SHAWNEE HERNANDEZ Attending Clinician Unavail able FADIA RIVERA Attending Clinician Unavailable Raoul Dailey Admitting Clinician Unavailable Manuel Gandhi Admitting Clinician Unavailable Payers Payer Name Policy Type Policy Number Effective Date Expirati on Date Source [employer] MEDICARE PPO [id number] 1 00:00:00 A[employer] MEDICARE ADVANTAGE Medicare [id number] 2023 00:00:00 [employer] MEDICARE O [id number] 1 00:00:00 Problems Condition Name Condition Details Condition Category Status Onset Date Resolution Date Last Treatment Date Treating Clinician Comments Source Presence of Watchman left atrial appendage closure device Presence of Watchman left atrial appendage closure device Disease Active 8-21 00:00: 00 [facility] Pneumonia Pneumonia Disease Active 8-17 00:00: 00 [facility] Congestive heart failure Congestive heart failure Disease Active 8-17 00:00: 00 [facility] Bradycardi a Bradycardi a Disease Active 8-17 00:00: 00 [facility] Pacemaker Pacemaker Disease Active 8-17 00:00: 00 [facility] Melanoma Melanoma Disease Active 2-01 00:00: 00 [facility] Parkinson' s disease Parkinson' s disease Disease [...] continue to follow-up with his local provider. [facility] Chronic atrial fibrillati on Chronic atrial fibrillati [...] daily. Continue cardiac medicatio ns, as above. [facility] Hyperkalem ia Hyperkalem ia Disease Active 2020-10 014 00:00: 00 Overview: Formattin g of this [...] the patient. I have instructe d Mr. Ritchie to follow-up with his local PCP for repeat labs. A message has also been sent to Dr. Gandhi with his recent labs. [facility] Hyperlipid emia Hyperlipid emia Disease Active 2020-10 [...] fatty and fried foods and increase activity. [facility] Neuropathy Neuropathy Disease Active 2020-10 00:00: 00 Overview: Formattin g of this note might be different from the original. Last Assessmen t & Plan: Formattin g of this note might be different from the original. The neuropath y is overall stable; continue gabapenti n 300 mg at bedtime. 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 Last Assessmen t & Plan: Formattin g of this note might be different from the original. Refer to plan under history of malignant melanoma of the skin. [facility] Tremor Tremor Disease Active 2020-10 00:00: 00 Overview: Formattin g of this note might be different from the original. Last Assessmen t & Plan: Formattin g of this note might be different from the original. He has a tremor for which she is being followed by a local neurologi st. He is being evaluated for Parkinson 's. [facility] Type 2 diabetes mellitus Type 2 diabetes mellitus Disease Recurre nce 2020-10 00:00: 00 Overview: Formattin g of this note might be different from the original. Last Assessmen t & Plan: Formattin g of this note might be different from the original. Blood glucose is 117 today; he continues with Farxiga 5 mg daily. His local PCP continues to manage his diabetes. [facility] History of malignant melanoma of skin History of malignant melanoma of skin Disease Active 2019-10 00:00: 00 Overview: Formattin g of this note might be different from the original. Last Assessmen t & Plan: Formattin g of this note might be different from the original. Robe Ritchie is a 77 y.o. male from [place], [place] diagnosed with a stage IB melanoma [...] clinic and educated on the importanc e [facility]. Encourage d to continue with routine physical, ophthalmo logy and dental exams. [facility] Hypertensi on Hypertensi on Disease Recurre nce 2019-10 0-13 00:00: 00 Overview: Formattin g of [...] and Lasix secondary to his kidney function. [facility] Serum creatinine raised Serum creatinine raised Disease Active 05-08 00:00: 00 Overview: Formattin g of this [...] nephrotox ic agents that he should avoid. [facility] Fatty liver Fatty liver Disease Active 05-07 00:00: 00 [facility] Allergies, Adverse Reactions, Alerts Allergy Name Allergy Type Status Severity Reaction(s) Onset Date Inactive Date Treating Clinician Comments Source CODEINE DRUG INGREDI Active Med Itching 03-08 00:00: 00 [facility] Drug Class Active Med Rash 03-08 00:00: 00 [facility] Drug Class Active Low Rash [...] Active Low Rash 04-13 00:00: 00 MD Sunli grider CODEINE SULFATE DRUG INGREDI Active 04-13 [...] DRUG INGREDI Active 04-13 00:00: 00 MD Anderso n Penicill ins DA Active SV RASHES 2012-10 00:00: 00 [facility] codeine DA Active SV ITCHING 2012-10 00:00: 00 [facility] Social History Social Habit Start Date Stop Date Quantity Comments Source History of tobacco use Cigarette Smoker [facility] Alcohol intake 2023-06-10 00:00:00 2023-06-10 00:00:00 Ex-drinker (finding) [facility] Exposure to SARS-CoV-2 (event) 2022-11-12 00:00:00 2022-11-22 14:16:00 Not sure [facility] Tobacco use and exposure 2022-11-22 00:00:00 2022-11-22 00:00:00 Smokeless tobacco non-user [facility] Sex Ass[birth year] At 1945 00:00:00 1945 00:00:00 [facility] Smoking Status Start Date Stop Date Source Ex-smoker 2022-11-22 00:00:00 2022-11-22 00:00:00 [facility] [employer] Medications Ordered Medication Name Filled Medication Name Start Date Stop Date Current Medication? Ordering Clinician Indication Dosage Frequency Signature (SIG) Comments Components Source pramipexole (Mirapex) 0.25 MG tablet 06-10 10:29: 47 Yes .25mg [id number] 3D Take 0.25 mg by mouth in the morning and 0.25 mg at noon and 0.25 mg in the evening. [facility] Apoaequorin (PREVAGEN PO) 06-10 10:29: 47 Yes Take by mouth. [facility] ferrous gluconate (Fergon) 324 (38 Fe) MG tablet 06-10 10:27: 08 06-10 00:00 :00 No Take by mouth. [facility] lisinopril 40 MG tablet 06-10 10:26: 06 06-10 00:00 :00 No 20mg Take 20 mg by mouth. [facility] aspirin 81 MG chewable tablet 06-10 10:26: 04 Yes 81mg Chew 81 mg. [facility] atorvastati n (Lipitor) 40 MG tablet 06-10 10:26: 04 Yes 40mg Take 40 mg by mouth. [facility] doxazosin (Cardura) 2 MG tablet 06-10 10:26: 04 Yes 2mg Take 2 mg by mouth. [facility] gabapentin (Neurontin) 300 MG capsule 06-10 10:26: 04 Yes 300mg Take 300 mg by mouth. [facility] metoprolol succinate XL (Toprol-XL) 25 MG 24 hr tablet 4-13 00:00: 00 Yes 25mg Q.5D Take 25 mg by mouth in the morning and 25 mg before bedtime. [facility] rivaroxaban (Xarelto) 15 MG tablet 11-22 14:47: 44 11-22 00:00 :00 No 15mg Take 15 mg by mouth. [facility] aspirin 81 MG chewable tablet 11-22 14:47: 11 Yes 81mg Chew 81 mg. [facility] atorvastati n (Lipitor) 40 MG tablet 11-22 14:47: 11 Yes 40mg Take 40 mg by mouth. [facility] doxazosin (Cardura) 2 MG tablet 11-22 14:47: 11 Yes 2mg Take 2 mg by mouth. [facility] ferrous gluconate (Fergon) 324 (38 Fe) MG tablet 11-22 14:47: 11 Yes Take by mouth. [facility] gabapentin (Neurontin) 300 MG capsule 11-22 14:47: 11 Yes 300mg Take 300 mg by mouth. [facility] lisinopril 40 MG tablet 11-22 14:47: 11 Yes 20mg Take 20 mg by mouth. [facility] amLODIPine (Norvasc) 10 MG tablet 11-22 14:46: 10 11-22 00:00 :00 No 10mg Take 10 mg by mouth. [facility] allopurinol (Zyloprim) 300 MG tablet 11-22 14:45: 24 11-22 00:00 :00 No 300mg Take 300 mg by mouth. [facility] Eliquis 5 MG tablet 1-17 00:00: 00 Yes 5mg Q.5D Take 5 mg by mouth in the morning and 5 mg before bedtime. [facility] amiodarone (Pacerone) 200 MG tablet 202212-14 00:00: 00 11-22 00:00 :00 No 200mg 200 mg. [facility] furosemide (Lasix) 40 MG tablet 2021-10 00:00: 00 Yes 40mg 40 mg. [facility] Umeclibobu m-Vilantero l 62.5-25 MCG/ACT aerosol powder 2021-10 00:00: 00 Yes 1{puff} 1 puff. [facility] pantoprazol e (ProtoNix) 40 MG EC tablet 2021-10 00:00: 00 11-22 00:00 :00 No 40mg 40 mg. [facility] Insulin Glargine-Li xisenatide 100-33 UNT-MCG/ML solution pen-injecto r 2021-10 00:00: 00 Yes BEFORE MEALS AND AT BEDTIME [facility] sodium bicarbonate 325 MG tablet 2021-10 00:00: 00 Yes 650mg 650 mg. [facility] carbidopa-l evodopa (Sinemet) 25-100 MG tablet 07-01 00:00: 00 Yes 2{tbl} 2 tablets. [facility] hydrALAZINE (Apresoline ) 25 MG tablet 9-08 00:00: 00 Yes 25mg 25 mg. [facility] predniSONE (Deltasone) 20 MG tablet 6-16 00:00: 00 11-22 00:00 :00 No 20mg 20 mg. [facility] dapaglifloz in (Farxiga) 5 MG 6-15 00:00: 00 Yes 1{tbl} 1 tablet. [facility] pramipexole (Mirapex) 0.125 MG tablet 11-21 00:00: 00 11-22 00:00 :00 No 1{tbl} Q.[id number] 3D Take 1 tablet by mouth in the morning and 1 tablet at noon and 1 tablet in the evening. [facility] Vital Signs Vital Name Observation Time Observation Value Comments S sugar BMI 2023-06-10 15:20:00 35.51 kg/m2 [facility] Systolic blood pressure 2023-06-10 15:20:00 131 mm[Hg] [facility] Diastolic blood pressure 2023-06-10 15:20:00 75 mm[Hg] [facility] Heart rate 2023-06-10 15:20:00 69 /min [facility] height 2023-06-10 15:20:00 167.6 cm [facility] weight 2023-06-10 15:20:00 99.791 [facility] Systolic blood pressure 2022-11-22 20:43:00 95 mm[Hg] [facility] Diastolic blood pressure 2022-11-22 20:43:00 58 mm[Hg] [facility] Heart rate 2022-11-22 20:43:00 70 /min [facility] Body height 2022-11-22 20:43:00 172.7 cm [facility] Body weight 2022-11-22 20:43:00 92.987 [facility] BMI 2022-11-22 20:43:00 31.17 kg/m2 [facility] Procedures Procedure Date / Time Performed Performing Clinicia n Source ECG 12-LEAD 2023-06-10 16:05:51 Josee Plasencia [facility] [id number] 2023-01-30 00:00:00 RASSA [facility] ECG 12-LEAD 2022-11-22 20:51:00 [facility] [id number] 2022-[facility]-05 [facility] [id number] 2022-11-05 00:00:00 [facility] [id number] 2022-11-05 00:00:00 [facility] [id number] 2022-11-05 00:00:00 [facility] [id number] 2022-11-02 00:00:00 KYRPO [facility] Encounters Start Date/Time End Date/Time Encounter Type Admission Type Attending Clinicians Care Facility Care Department Encounter ID Source 2023-03-28 14:54:56 Outpatient [facility] [id number] [facility] 2023-01-17 15:36:04 Outpatient [facility] [id number] [facility] 2023-01-16 11:42:11 Outpatient [facility] [id number] [facility] 2022-11-23 14:44:00 Outpatient [facility] [id number] [facility] 2022-11-22 14:10:22 Outpatient [facility] [id number] [facility] 2022-11-21 14:02:07 Outpatient [facility] [id number] [facility] 2022-11-16 13:09:26 Outpatient [facility] [id number] [facility] 2022-11-08 13:33:42 Outpatient [facility] [id number] [facility] 2022-11-07 09:40:24 Outpatient [facility] [id number] [facility] 2022-11-06 09:33:34 Outpatient [facility] [id number] [facility] 2022-11-04 20:47:02 Outpatient [facility] [id number] [facility] 2024-03-26 13:44:29 2024-03-26 14:49:39 Outpatient Elective JENNIFER MARTINEZ [facility] [id number] EOUT 2024-03-26 13:30:00 2024-03-26 13:45:00 Office Visit Jennifer Martinez [facility] [id number] 2023-08-01 10:10:03 2023-08-01 23:59:00 Outpatient JOSEE KERN MDA MDA [id number] MD Sunil grider 2023-08-01 13:37:31 2023-08-01 14:10:02 Outpatient EH BUTCHER MDA MDA [id number] MD Sunil grider 2023-08-01 13:38:00 2023-08-01 13:38:00 Outpatient JOSEE KERN MDA MDA [id number] MD Sunil grider 2023-08-01 11:00:08 2023-08-01 11:00:08 Outpatient JOSEE KERN MDA MDA [id number] MD Sunil grider 2023-08-01 10:31:46 2023-08-01 10:31:46 Outpatient JOSEE KERN MDA MDA [id number] MD Sunil grider 2023-06-10 10:00:00 2023-06-10 10:58:48 Office Visit Josee Plasencia [facility] [id number] [facility] 2023-06-06 13:45:00 2023-06-06 13:45:00 Outpatient VAIBHAVBreanne TAMMYSHARON [facility] [id number] [facility] 2023-01-30 05:50:00 2023-01-30 17:37:00 Inpatient Mickey Gee [facility] CARD [id number] [facility] 2022-11-22 14:45:00 2022-11-22 15:17:29 Office Visit Tulio Aramis [facility] [id number] [facility] 2022-10-31 05:46:00 2022-11-06 12:48:00 Inpatient Kristina Retana [facility]ACL MEDI.01 [id number] [facility] 2022-08-02 10:40:58 2022-08-02 23:59:00 Outpatient EL MDA MDA [id number] MD Sunil grider 2022-08-02 13:29:31 2022-08-02 13:29:31 Outpatient JOSEE KERN MDA MDA [id number] MD Sunil grider 2022-08-02 12:59:37 2022-08-02 12:59:37 Outpatient EL MDA MDA [id number] MD Sunil grider 2022-08-02 11:29:26 2022-08-02 11:29:26 Outpatient EL MDA MDA [id number] MD Sunil grider 2022-08-02 09:12:03 2022-08-02 10:12:28 Outpatient EL CORBY, EH MDA MDA [id number] MD Sunil grider 2021-08-03 11:01:39 2021-08-03 23:59:00 Outpatient JONNY VÁSQUEZ MDA MDA [id number] MD Sunil grider 2021-08-03 13:29:14 2021-08-03 13:29:14 Outpatient JONNY VÁSQUEZ MDA MDA [id number] MD Sunil grider 2021-08-03 12:46:21 2021-08-03 13:24:31 Outpatient EH BUTCHER MDA MDA [id number] MD Sunil grider 2021-08-03 11:00:35 2021-08-03 11:00:35 Outpatient JONNY VÁSQUEZ MDA MDA [id number] MD Sunil grider 2021-08-03 09:18:41 2021-08-03 09:18:41 Outpatient JONNY VÁSQUEZ MDA MDA [id number] MD Sunil grider 2020-08-03 07:25:55 2020-08-04 06:29:04 Outpatient SHAWNEE LEON MDA MDA [id number] MD Sunil grider 2020-08-02 12:09:49 2020-08-02 23:59:00 Outpatient FADIA SPRINGER MDA MDA [id number] MD Sunil grider 2020-08-02 09:30:00 2020-08-02 12:08:00 Outpatient FADIA SPRINGER MDA MDA [id number] MD Sunli grider 2020-08-02 09:59:38 2020-08-02 09:59:38 Outpatient FADIA SPRINGER MDA MDA [id number] MD Sunil grider 2020-08-02 00:00:00 2020-08-02 00:00:00 Outpatient FADIA SPRINGER MDA MDA [id number] MD Sunil grider Results Test Description Test Time Test Comments Results Result Co mments Source [id number] 10:52:00* Test Item Value Reference Range Interpretation Comme nts ACT-ISTAT (test code = ACTI) 263 SEC 74-137 H Performed by cer tified boiler/chiller operator at [facility] GLUCOSE [id number] 08:49:00* Test Item Value Reference Range Interpretation Comme nts GLUCOSE BEDSIDE (test code = GLUBED) 134 MG/DL 70-110 H Performed by jerome ohara boiler/chiller operator at [facility] - XR CHEST 1 [id number] 00:00:00 [facility] 1945 Sex: M FAX: Manuel Gaxiola MD [phone] [place]: St: ADM FAX: Raoul Bowens MD [phone] ------ Name: ERMAROBE INOCNECIO [facility] : 1945 Age/S: 77/M [address] [place] [address] Unit #: [id number] Loc: [place] [address] Phys: Raoul Dailey MD Acct: [id number] Dis Date: Status: ADM IN PHONE #: Exam Date: 01/30/2023 1200 FAX #: [phone] Reason: S/P WATCHMAN EXAMS: CPT CODE: [id number] XR CHEST 1 V 42705 PROCEDURE INFORMATION: Exam: XR Chest Exam date and time: 01/30/2023 11:41 AMAge: 77 years old Clinical indication: Pre-operative exam; Respiratory screening exam; Additional info: S/P watchman TECHNIQUE: Imaging protocol: Radiologic exam of the chest. Views: 1 view. COMPARISON: DX XR CHEST 2 V 01/28/2023 12:16 PM FINDINGS: Tubes, catheters and devices: Pacemaker. Lungs: Hypodensity lungs. No consolidation. No interstitial edema. Pleural spaces: No pleural effusion. No pneumothorax. Heart/Mediastinum: Mild cardiomegaly. Bones/joints: Midline sternotomy wires. IMPRESSION: No acute cardiopulmonary process identified. at 1212 Reported and signed by: Ronald Escalante M.D. CC: Manuel Gandhi MD; Raoul Dailey MD Technologist: Eh Sampson RT(R) Trnscrd Date/Time/By: 01/30/2023 (1211) : By: [email or web address] Orig Print D/T: S: 01/30/2023 (1212) PAGE 1 Signed ReportBASIC METABOLIC [id number] 12:42:00* Test Item Value Reference Range Interpretation [...] code = CA) 9.2 mg/dL 8.0-10.5 N [id number] 12:42:00* Test Item Value Reference Range Interpretation Comme nts PREALBUMIN (test code = PREALB) 22.9 mg/dL 16.0-40.0 N PROTHROMBIN [id number] 12:24:00* Test Item Value Reference Range Interpretation [...] Infarction (to prevent recurrent infarct). CBC W/AUTO [id number] 12:20:00* Test Item Value Reference Range Interpretation [...] = MDIFF) NO - XR CHEST 2 [id number] 00:00:00 [facility] : 1945 Sex: M FAX: Manuel Gaxiola MD [phone] [place]: St: PRE FAX: Raoul Bowens MD [phone] ----- Name: ROBE RITCHIE [facility] : 1945 Age/S: 77/M [address] [place] [address] Unit #: [id number] Loc: [place] [address] Phys: Raoul Dailey MD Acct: [id number] Dis Date: Status: PRE IN PHONE #: [phone] Exam Date: 01/28/2023 1311 FAX #: [phone] Reason: PRE OP EXAMS: CPT CODE: [id number] CHEST 2 V 93722 PROCEDURE INFORMATION: Exam: XR Chest Exam date and time: 01/28/2023 12:16 PM Age: 77 years old Clinical indication: Pre-operative exam; Cardiovascular screening and respiratory screening exam; [...] Manuel Gandhi MD; Raoul Dailey MD Technologist: Sara Wolfe RT(R) Trnscrd Date/Time/By: 01/28/2023 (4536) : By: Altagracia Orig Print D/T: S: 01/28/2023 (0635) PAGE 1 Signed ReportGLUCOSE [id number] 11:50:00 * Test Item Value Reference Range Interpretation Comme nts GLUCOSE BEDSIDE (test code = GLUBED) 171 MG/DL 70-110 H Performed by jerome carson at [facility] CYTOLOGY NON [id number] 11:05:00* Test Item Value Reference Range Interpretation Comme nts CYTOLOGY NON FIELD TECHNICAL ASSISTANT (test code = CR) R UN DATE: 11/06/22 [place] - LAB PAGE 1 RUN TIME: 1106 Specimen Inquiry RUN USER: INTERFACE P ATIENT: ROBE RITCHIE JR [facility] [id number] AGE/SX: 77/M ROOM: [facility] RE10/31/22REG DR: Kristina Hodge MD : 43 BED: 1 DIS: STATUS: ADM IN TLOC: SPEC #: [id number] RECD: 11/05/22 STATUS: SHIVA VILLA #: [id number] JHON: 11/02/22- SUBM DR: Kristina Hodge MD ENTERED: 11/05/22 SP TYPE: CYTO NGYN OTHR DR: Beata Primary or Family Physician Sherly Gomes MD, Molham MD Barr, David T MD Dahdel, Maher MD Lakhani,Carlos Alberto Dailey,Raoul Thomas,Aramis NICOLSAORDERED: 23626, 89670, ANATOMIC SPEC COPIES TO: Beata Primary or Family Physician Sherly Gomes MD [address] [facility] [place] [address] Mickey Briggs MD [address] [place] [address] Kristina Hodge MD [address] [address] [place] [address] Manuel Gandhi MD [address] [place] [address] Taylor Lowery MD [address] [place] [address] [address] [place] [address] Carlos Alberto Barfield MD [address] [place] [address] CONTINUED ON NEXT PAGE R UN DATE: 11/06/22 [place] - LAB PAGE 2 RUN TIME: 1106 Specimen Inquiry RUN USER: INTERFACE S PEC #: [id number] PATIENT: ROBE RITCHIE JR #[id number] (Continued) COPIES TO: (Continued) Raoul Dailey MD [address] [facility] [address] [place], [place] [id number] [place] [address] [address], [address] [place], [place] [address] PROCEDURES: 27168 (11/05/22) 53765 (11/05/22) TISSUES: A. PLEURAL FLUID - RIGHT CLINICAL HISTORY SAME FINAL DIAGNOSIS Pleural effusion, right, cellblock and cytospin: No cells diagnostic of malignancy. GROSS DESCRIPTION Received right pleural effusion is 45 mL of yellow fluid without fixative for cytologicevaluation, cellblock and cytospin smears are prepared. Technical component performed at [address] [address] Unless gross only, the diagnosis is based [...] if clinicallyindicated. CONTINUED ON NEXT PAGE Eliseo SHEIKH DATE: 11/06/22 [place] - LAB PAGE 3 RUN TIME: 1106 Specimen Inquiry RUN USER: INTERFACE Poonam VIVEROS #: [id number] PATIENT: ROBE RITCHIE #[id number] (Continued) CLINICAL INFORMATION RIGHT PLEURAL EFFUSION ------- Signed _ Manuel Ybarra 11/06/22 1105 END OF REPORT BASIC METABOLIC [id number] 08:38:00* Test Item Value Reference Range Interpretation [...] code = CA) 9.2 mg/dL 8.0-10.5 N [id number] 08:38:00* Test Item Value Reference Range Interpretation Comme nts PHOSPHOROUS (test code = PHOS) 4.2 MG/DL 2.5-4.9 N [id number] 08:38:00* Test Item Value Reference Range Interpretation Comme nts MAGNESIUM (test code = MAG) 2.03 mg/dL 1.80-2.40 N CBC W/AUTO [id number] 08:26:00* Test Item Value Reference Range Interpretation [...] (test c ode = MDIFF) NO GLUCOSE [id number] 05:51:00* Test Item Value Reference Range Interpretation Comme nts GLUCOSE BEDSIDE (test code = GLUBED) 101 MG/DL 70-110 N Performed by jerome ohara boiler/chiller operator at [facility] - XR CHEST 1 [id number] 00:00:00 [facility] : 1945 Sex: M FAX: Kristina Adrian MD [phone] [place]: St: ADM FAX: Manuel Gaxiola MD [phone] FAX: Raoul Bowens MD [phone] FAX: Wade Altman [phone] Name: ROBE RITCHIE [facility] : 1945 Age/S: 77/M [address] [place] [address] Bl Unit #: [id number] Loc: G.4421 [place] [address] Phys: Wade Altman Acct: [id number] Dis Date: Status: ADM IN PHONE #: [phone] Exam Date: 11/06/2022 0950 FAX #: [phone] Reason: Post PM/ICD EXAMS: CPT CODE: [id number] XR CHEST 1 V 36024 PROCEDURE INFORMATION: Exam: XR Chest Exam date and time: 11/06/2022 8:30 AM Age: 77 years old Clinical indication: Other: Post pm/icd TECHNIQUE: Imaging protocol: Radiologic exam of the chest.Views: 1 view. COMPARISON: CR XR CHEST 1V 11/05/2022 2:06 PM FINDINGS: Tubes, catheters and devices:Stable surgical implants. Lungs: Interval slight worsening of the right mid/lower lung pulmonary infiltrate. No significant left pulmonary infiltrate. Pleural spaces: Small right pleural effusion, stable. No pneumothorax. No left pleural effusion. Heart/Mediastinum: Stable cardiomegaly. Bones/joints: Median sternotomy wires. IMPRESSION: 1. Stable small right pleural effusion. Interval slight worsening of the right mid/lower lung pulmonary infiltrate. 2. No significant left pulmonary infiltrate. at 1013 Reported and signed by: Alessandra Franks M.D. CC: Kristina Hodge MD; Manuel Gandhi MD; Raoul Dailey MD; Wade Altman Technologist: RT Mary(R) Trnscrd Date/Time/By: 11/06/2022 (1013) : By: [email or web address] PAGE 1 Signed ReportGLUCOSE [id number] 19:11:00* Test Item Value Reference Range Interpretation Comme nts GLUCOSE BEDSIDE (test code = GLUBED) 121 MG/DL 70-110 H Performed by cer pepeied boiler/chiller operator at [facility] GLUCOSE [id number] 16:47:00* Test Item Value Reference Range Interpretation Comme nts GLUCOSE BEDSIDE (test code = GLUBED) 122 MG/DL 70-110 H Performed by jerome ohara boiler/chiller operator at [facility] COVID 19 Asymptomatic IH [id number] 08:22:00* Test Item Value Reference Range Interpretation [...] moderate, high or waivedcomplexity tests. BASIC METABOLIC [id number] 08:13:00* Test Item Value Reference Range Interpretation [...] code = CA) 9.5 mg/dL 8.0-10.5 N [id number] 08:13:00* Test Item Value Reference Range Interpretation Comme nts PHOSPHOROUS (test code = PHOS) 5.1 MG/DL 2.5-4.9 H [id number] 08:13:00* Test Item Value Reference Range Interpretation Comme nts MAGNESIUM (test code = MAG) 2.11 mg/dL 1.80-2.40 N CBC W/AUTO [id number] 07:38:00* Test Item Value Reference Range Interpretation [...] c ode = MDIFF) NO THROMBOPLASTIN TIME [id number] 07:11:00* Test Item Value Reference Range Interpretation Comme [facility] THROMBOPLASTIN TIME PARTIAL (test code = PTT) 37.5 Seconds 25.0-39.5 N Therapeutic Rang e: 50.4 - 88.3 Seconds Effective 02/03/2019 GLUCOSE [id number] 06:09:00* Test Item Value Reference Range Interpretation Comme [facility] GLUCOSE BEDSIDE (test code = GLUBED) 118 MG/DL 70-110 H Performed by cer lev boiler/chiller operator at [facility] - XR CHEST 1 [id number] 00:00:00 [facility] 1945 Sex: M FAX: Kristina Adrian MD [phone] [place]: St: ADM FAX: Manuel Gaxiola MD [phone] FAX: Raoul Bowens MD [phone] FAX: Wade Altman [phone] Name: ROBE RITCHIE [facility] : 1945 Age/S: 77/M [address] [place] [address] Unit #: [id number] Loc: [address] [place] [address] Phys: Wade Altman STAFF FORESTER Acct: [id number] Dis Date: Status: ADM IN PHONE #: [phone] Exam Date: 11/05/2022 1408 FAX #: [phone] Reason: Post PM/ICD EXAMS: CPT CODE: [id number] XR CHEST 1 V 44596 PROCEDURE INFORMATION: Exam: XR Chest Exam date [...] Manuel Gandhi MD; Raoul Dailey MD; Wade Altman Technologist: RT Mary(R) Trnscrd Date/Time/By: 11/05/2022 (1535) : By: [email or web address] Orig Print D/T: S: 11/05/2022 (1345) PAGE 1 Signed ReportGLUCOSE [id number] 20:06:00* Test Item Value Reference Range Interpretation Comme nts GLUCOSE BEDSIDE (test code = GLUBED) 126 MG/DL 70-110 H Performed by [facility] tified boiler/chiller operator at [facility] GLUCOSE [id number] 17:05:00* Test Item Value Reference Range Interpretation Comme nts GLUCOSE BEDSIDE (test code = GLUBED) 157 MG/DL 70-110 H Performed by [facility] tified boiler/chiller operator at [facility] GLUCOSE [id number] 14:03:00* Test Item Value Reference Range Interpretation Comme nts GLUCOSE BEDSIDE (test code = GLUBED) 131 MG/DL 70-110 H Performed by cer tified boiler/chiller operator at [facility] GLUCOSE [id number] 08:26:00* Test Item Value Reference Range Interpretation Comme nts GLUCOSE BEDSIDE (test code = GLUBED) 106 MG/DL 70-110 N Performed by cer tified boiler/chiller operator at [facility] BASIC METABOLIC [id number] 07:56:00* Test Item Value Reference Range Interpretation [...] code = CA) 8.7 mg/dL 8.0-10.5 N [id number] 07:56:00* Test Item Value Reference Range Interpretation Comme nts PHOSPHOROUS (test code = PHOS) 5.5 MG/DL 2.5-4.9 H [id number] 07:56:00* Test Item Value Reference Range Interpretation Comme nts MAGNESIUM (test code = MAG) 2.07 mg/dL 1.80-2.40 N CBC W/AUTO [id number] 07:25:00* Test Item Value Reference Range Interpretation [...] (test c ode = MDIFF) NO GLUCOSE [id number] 17:07:00* Test Item Value Reference Range Interpretation Comme [facility] GLUCOSE BEDSIDE (test code = GLUBED) 129 MG/DL 70-110 H Performed by cer tified boiler/chiller operator at [facility] GLUCOSE [id number] 13:01:00* Test Item Value Reference Range Interpretation Comme [facility] GLUCOSE BEDSIDE (test code = GLUBED) 156 MG/DL 70-110 H Performed by Cempraied boiler/chiller operator at [facility] BASIC METABOLIC [id number] 08:11:00* Test Item Value Reference Range Interpretation [...] code = CA) 9.1 mg/dL 8.0-10.5 N [id number] 08:11:00* Test Item Value Reference Range Interpretation Comme nts PHOSPHOROUS (test code = PHOS) 6.1 MG/DL 2.5-4.9 H [id number] 08:11:00* Test Item Value Reference Range Interpretation Comme nts MAGNESIUM (test code = MAG) 2.10 mg/dL 1.80-2.40 N CBC W/AUTO [id number] 07:17:00* Test Item Value Reference Range Interpretation [...] (test c ode = MDIFF) NO GLUCOSE [id number] 05:45:00* Test Item Value Reference Range Interpretation Comme nts GLUCOSE BEDSIDE (test code = GLUBED) 150 MG/DL 70-110 H Performed by cer tified boiler/chiller operator at [facility] GLUCOSE [id number] 21:24:00* Test Item Value Reference Range Interpretation Comme nts GLUCOSE BEDSIDE (test code = GLUBED) 158 MG/DL 70-110 H Performed by cer tified boiler/chiller operator at [facility] GLUCOSE [id number] 18:20:00* Test Item Value Reference Range Interpretation Comme nts GLUCOSE BEDSIDE (test code = GLUBED) 179 MG/DL 70-110 H Performed by cer tified boiler/chiller operator at [facility] PLEURUAL FLD [id number] 17:00:00* Test Item Value Reference Range Interpretation Comme nts PLEURUAL FLD GLUCOSE (test c ode = GLUPL) 142 MG/DL PLERUAL FLD [id number] 17:00:00* Test Item Value Reference Range Interpretation [...] this result as normal/abnormal. PLEURAL FLD TOTAL [id number] 16:59:00* Test Item Value Reference Range Interpretation Comme nts PLEURAL FLD TOTAL PROTEIN (t est code = PROTPL) 2.8 GM/DL PLEURAL FLD [id number] 16:59:00* Test Item Value Reference Range Interpretation Comme nts PLEURAL FLD LDH (test code = LDHPL) 102 UNITS/L PLEURAL FLD TOTAL [id number] 16:59:00* Test Item Value Reference Range Interpretation [...] interpret this result as normal/abnormal. PLEURAL FLD [id number] 16:59:00* Test Item Value Reference Range Interpretation [...] interpret this result as normal/abnormal. PLEURAL FLD CELL CT/[id number] 16:13:00* Test Item Value Reference Range Interpretation [...] (len t code = MESPL) RARE GLUCOSE [id number] 12:19:00* Test Item Value Reference Range Interpretation Comme nts GLUCOSE BEDSIDE (test code = GLUBED) 166 MG/DL 70-110 H Performed by cer tified boiler/chiller operator at [facility] TOTAL IRON BINDING [id number] 10:08:00* Test Item Value Reference Range Interpretation Comme nts SERUM IRON (test code = IRON) 24 mcg/dL 35-150 L TOTAL IRON BINDING CAPACITY (test code = TIBC) 378 mcg/dL 260-445 N UIBC (test code = UIBC) 354 mcg/dL IRON SATURATION (test code = FESAT) 6.3 % 14-34 L [id number] 10:08:00* Test Item Value Reference Range Interpretation Comme nts FERRITIN (test code = BOB) 34.5 ng/mL 23.9-336.2 N BASIC METABOLIC [id number] 09:58:00* Test Item Value Reference Range Interpretation [...] code = CA) 9.7 mg/dL 8.0-10.5 N [id number] 09:58:00* Test Item Value Reference Range Interpretation Comme nts PHOSPHOROUS (test code = PHOS) 4.8 MG/DL 2.5-4.9 N [id number] 09:58:00* Test Item Value Reference Range Interpretation Comme nts MAGNESIUM (test code = MAG) 2.03 mg/dL 1.80-2.40 N CBC W/AUTO [id number] 09:38:00* Test Item Value Reference Range Interpretation [...] (test c ode = MDIFF) NO GLUCOSE [id number] 06:42:00* Test Item Value Reference Range Interpretation Comme nts GLUCOSE BEDSIDE (test code = GLUBED) 118 MG/DL 70-110 H Performed by cer tified boiler/chiller operator at [facility] - XR CHEST 1 [id number] 00:00:00 [facility] : 1945 Sex: M FAX: Kristina Adrian MD [phone] [place]: St: ADM FAX: Manuel Gaxiola MD [phone] FAX: Terri Matos FAX: Raoul Bowens MD [phone] Name: ROBE RITCHIE [facility] [place] : 1945 Age/S: 77/M [address] [place] [address] Unit #: [id number] Loc: [address] [place] [address] Phys: Terri Matos MD Acct: [id number] Dis Date: Status: ADM IN PHONE #: [phone] Exam Date: FAX #: [phone] Reason: POST RIGHT THORACENTESIS EXAMS: CPT CODE: [id number] XR CHEST 1 N11517 PROCEDURE INFORMATION: Exam: XR Chest Exam date and time: 11/02/2022 2:22 PM Age: 77 years oldClinical indication: Screening exam; Other screening; Additional info: [...] lower lobe infiltrate and pleural effusion. at 1457 Reported and signed by: Uriel Leon M.D. CC: Kristina Hodge MD; Manuel Gandhi MD; Terri Matos MD; Raoul Dailey MD Technologist: ANGE Banegas) Gerda Date/Time/By: 11/02/2022 (1456) : By: [email or web address] Orig Print D/T: S: 11/02/2022 (7534) PAGE 1 Signed Report- US THORACENTESIS [id number] 00:00:00 [facility] FOSTERName: ROBE RITCHIE : 1945 Sex: M Name: ROBE RITCHIE [facility] : 1945 Age/S: 77 / M [address] [place] [address] Unit #: [id number] Loc: T[place] [address] Phys: Taylor Lowery MD Acct: [id number] Dis Date: Status: ADM IN PHONE #: [phone] Exam Date: 11/02/2022 1410 FAX #: [phone] Reason: r effusion EXAMS: CPT CODE: [id number] US THORACENTESIS W/IMAG 49162 PROCEDURE INFORMATION: Exam: IR Thoracentesis, Aspiration With [...] for local anesthesia. Using ultrasound guidance, 5 Cuban sheathed needle was advanced into the pleural [...] and the patient had no complaints. IMPRESSION: Technicallysuccessful ultrasound guided right thoracentesis. PAGE 1 Signed Report (CONTINUED) Name: JOSIAH RITCHIE JR [facility] : 1945 Age/S: 77 / M [address] [place] [address] Unit #: [id number]: T[place]Y [place] [address] Phys: Taylor Lowery MD Acct: [id number] Dis Date: Status: ADM IN PHONE #: Exam Date: 11/02/2022 1410 FAX #: [phone] Reason: r effusion EXAMS: CPT CODE: [id number] US THORACENTESIS W/IMAG 17244 (Continued) at 1633 Reported and signed by: Terri Matos M.D. CC: Kristina Hodge MD; Manuel Gandhi MD; Taylor Lowery MD; Raoul Dailey MD Technologist: Daisy Tate [facility] Date/Time: 11/02/2022 (1632) PearlPK16 Orig Print D/T: S: 11/02/2022 (1632) Probe: PAGE 2 Signed ReportGLUCOSE [id number] 20:29:00* Test Item Value Reference Range Interpretation Comme nts GLUCOSE BEDSIDE (test code = GLUBED) 141 MG/DL 70-110 H Performed by cer tified boiler/chiller operator at [facility] GLUCOSE [id number] 17:38:00* Test Item Value Reference Range Interpretation Comme nts GLUCOSE BEDSIDE (test code = GLUBED) 176 MG/DL 70-110 H Performed by cer tified boiler/chiller operator at [facility] GLUCOSE [id number] 12:19:00* Test Item Value Reference Range Interpretation Comme nts GLUCOSE BEDSIDE (test code = GLUBED) 153 MG/DL 70-110 H Performed by [employer] tified boiler/chiller operator at [facility] BASIC METABOLIC [id number] 08:45:00* Test Item Value Reference Range Interpretation [...] code = CA) 9.4 mg/dL 8.0-10.5 N [id number] 08:45:00* Test Item Value Reference Range Interpretation Comme nts PHOSPHOROUS (test code = PHOS) 4.3 MG/DL 2.5-4.9 N [id number] 08:45:00* Test Item Value Reference Range Interpretation Comme nts MAGNESIUM (test code = MAG) 2.17 mg/dL 1.80-2.40 N B-TYPE NATRIURETIC [id number] 08:42:00* Test Item Value Reference Range Interpretation Comme nts B-TYPE NATRIURETIC PEPTIDE ( test code = BNP) 295.0 PG/ML 0-100 H CBC W/AUTO [id number] 08:20:00* Test Item Value Reference Range Interpretation [...] (test c ode = MDIFF) NO GLUCOSE [id number] 06:16:00* Test Item Value Reference Range Interpretation Comme nts GLUCOSE BEDSIDE (test code = GLUBED) 146 MG/DL 70-110 H Performed by jerome ohara boiler/chiller operator at [facility] - XR CHEST 1 [id number] 00:00:00 [facility] : 1945 Sex: M FAX: Kristina Adrian MD [phone] [place]: St: ADM FAX: Manuel Gaxiola MD [phone] FAX: Taylor Palacios MD [phone] FAX: Raoul Bowens MD [phone] Name: ROBE RITCHIE [facility] : 1945 Age/S: 77/M [address] [place] [address] Bl Unit #: [id number] Loc: G.[address] [place] [address] Phys: Taylor Lowery MD Acct: [id number] Dis Date: Status: ADM IN PHONE #: [phone] Exam Date: 11/01 1525 FAX #: [phone] Reason: sob EXAMS: CPT CODE: [id number] XR CHEST 1 V 56578 PROCEDUREINFORMATION: Exam: XR Chest Exam date and [...] and signed by: Ronald Escalante M.D. CC: Elías Hodge MD; Manuel Gandhi MD; Taylor Lowery MD; Raoul Dailey MD Technologist: Ck Lorenz Date/Time/By: 11/01/2022 (0521) : By: [email or web address] Orig Print D/T: S: 11/01/2022 (0636) PAGE 1 Signed Report- DUP VEIN MARIE 2022-11-01 00:00:00 [facility] : 1945 Sex: M Name: ROBE RITCHIE [facility] : 1945 Age/S: 77 / M [address] [place] [address] Unit #: [id number] Loc: [place] [address] Phys: Cynthia Silver [facility] Acct: [id number] DisDate: Status: ADM IN PHONE #: [phone] Exam Date: 11/01/2022 1058 FAX #: [phone] Reason: rule out DVT, LE edema, erythema EXAMS: CPT CODE: [id number] DUP VEIN MARIE [address] PROCEDURE INFORMATION: Exam: US Duplex Lower Extremity Veins, Bilateral Exam date and time: 11/01/2022 10:13 AM Age: 77 years old Clinical indication: Edema, localized; Lower extremity, bilateral; Additional info: Rule outdvt, le edema, erythema TECHNIQUE: Imaging protocol: Real-time duplex ultrasound of the bilateral extremities with 2-D jason scale, color Doppler flow and spectral waveform analysis with image document ation. Complete exam focused on the bilateral lower extremity veins. COMPARISON: No relevant prior studies available. FINDINGS: Right deep veins: Unremarkable. The common femoral, femoral, proximal profunda femoral and popliteal veins are patent without thrombus. Normal Doppler waveforms. Normal compressibility and/or augmentation response. Right superficial veins: Saphenofemoral junction is paten t without thrombus. Left deep veins: Unremarkable. The common femoral, femoral, proximal profunda femoral and popliteal veins are patent without thrombus. Normal Doppler waveforms. Normal compressibility and/or augmentation response. Left superficial veins: Saphenofemoral junction is patent withoutthrombus. Soft tissues: Right Mercedes's cyst measures 5.1 X 1.4 X 2.8 cm. Soft tissue edema. IMPRESSION: No evidence of deep vein thrombosis. at 1108 Reported and signed by: Uriel Leon M.D. CC: Kristina Hodge MD; Manuel Gandhi MD; Cynthia Silver; Raoul Dailey MD Technologist: Rosa Trujillo RDMS(AB)(OB) Trnscb Date/Time: 11/01/2022 (1108) tBAILEER.JT18 PAGE 1 Signed Report- RETROPERITONEAL [id number] 00:00:00 [facility] : 1945 Sex: M [facility] 1945 Age/S: 77 / M [address] [place] [address] Blvd Unit #: [id number] Loc: [place] [address] Phys: Sherly Gomes MD Acct: [id number] Dis Date: Status: ADM IN PHONE #: [phone] Exam Date: 11/01/2022 1100 FAX #: [phone] Reason: CKD EXAMS:CPT CODE: [id number] US RETROPERITONEAL COM [id number] PROCEDURE INFORMATION: Exam: US Retroperitoneal; C omplete; Kidneys and Bladder Exam date and time: 11/01/2022 10:05 AM Age: 77 years old Clinical indication: Abnormal findings; Abnormal lab test; Abnormal kidney function lab tests; Additional info: Ckd TECHNIQUE: Imaging protocol: Real-time ultrasound of the retroperitoneum with image documentation. Complete exam focused on the kidneys and bladder. COMPARISON: No relevant prior studies available.FINDINGS: Right kidney: The right kidney measures 9.5 cm. No stones. No hydronephrosis.The renal corticomedullary differentiation is maintained. Simple right renal cyst measures 1.9 cm. Left kidney: The left kidney measures 10.4 cm. No stones. No hydronephrosis.The renal corticomedullary differentiation is maintained. Aorta: Obscured aorta bifurcation by bowel gas. Intraperitoneal space: Ascites.Urinary bladder: Unremarkable. IMPRESSION: 1. No acute renal abnormality. 2. Ascites. at 1115 Reported and signed by: Uriel Leon M.D. CC: Sherly Gomes MD; Kristina Hodge MD; Manuel Gandhi MD; Raoul Dailey MD Technologist: Rosa Trujillo RDMS(AB)(OB) Trnscb Date/Time: 11/01/2022 (1115) [id number] Orig Print D/T: S: 11/01/2022 (1115) Probe: PAGE 1 Signed Report GLUCOSE [id number] 19:10:00* Test Item Value Reference Range Interpretation Comme nts GLUCOSE BEDSIDE (test code = GLUBED) 181 MG/DL 70-110 H Performed by cer tified boiler/chiller operator at [facility] GLUCOSE [id number] 09:03:00* Test Item Value Reference Range Interpretation Comme nts GLUCOSE BEDSIDE (test code = GLUBED) 114 MG/DL 70-110 H Performed by cer tified boiler/chiller operator at [facility] GLUCOSE [id number] 07:24:00* Test Item Value Reference Range Interpretation Comme nts GLUCOSE BEDSIDE (test code = GLUBED) 123 MG/DL 70-110 H Performed by cer tified boiler/chiller operator at [facility] BASIC METABOLIC [id number] 11:52:00* Test Item Value Reference Range Interpretation [...] code = CA) 9.5 mg/dL 8.0-10.5 N [id number] 11:52:00* Test Item Value Reference Range Interpretation Comme [facility] PREALBUMIN (test code = PREALB) 27.7 mg/dL 16.0-40.0 N PROTHROMBIN [id number] 11:46:00* Test Item Value Reference Range Interpretation Comme [facility] PROTHROMBIN TIME PATIENT (test code = PTP) [...] Infarction (to prevent recurrent infarct). CBC W/AUTO [id number] 11:33:00* Test Item Value Reference Range Interpretation [...] = MDIFF) NO - XR CHEST 2 [id number] 00:00:00 [facility] : 1945 Sex: M FAX: Manuel Gaxiola MD [phone] [place]: St: PRE FAX: Raoul Bowens MD [phone] ------ Name: ROBE RITCHIE JR [facility] Leonor Bautista : 1945 Age/S: 77/M [address] [place] [address] Unit #: [id number] Loc: [place] [address] Phys: Raoul Dailey MD Acct: [id number] Dis Date: Status: PRE IN PHONE #: [phone] Exam Date: 10/29/2022 1225 FAX #: [phone] Reason: PAT EXAMS: CPT CODE: [id number] XR C HEST 2 V 64607 PROCEDURE INFORMATION: Exam: XR Chest Exam date [...] CC: Manuel Gandhi MD; Raoul Dailey MD Technologist:Ashanti Stewart RT(R); Shauna Valdes Trnscrd Date/Time/By: 10/29/2022 (0076) : By: [email or web address] Orig Print D/T: S: 10/29/2022 (5652) PAGE 1 Signed Report Notes Date/Time Note Provider Source 2023-01-30 13:42:00 [id number]/[id number] ernQwaqkoeUdcyI41Ld1Why6uWGbu RVR9n8+gVcqPNgBcCFxKGRkXfVy1562-64-51S77:42:69961 2-[address] [place] [address] PATIENT NAME: ROBE RITCHIE JR ADMIT DATE: 01/30/23ACCOUNT NO: [id number] ROOM NO: [facility] AGE: 77 REPORT TYPE: eECHOCARDIOGRAM REPORT SEX: M ADMITTING PHYSICIAN:Raoul Dailey MD ATTENDING PHYSICIAN:Mickey Briggs MD *[address] [address]Szgzy: [phone]: [phone] Limited Transthoracic Echocardiogram Patient: Robe RitchieStudy Date: 01/30/2023 BP: [id number] 1945 Age: 77 Height: 65 in / 165.1 cmAccession#: [id number] Gender: M Weight: 216 lb / 98.2 kgBMI/BSA: 36 kg/m 2 / 2.16 m 2 *Ordering Physician: * Wade Altman *Interpreting Physician: * Mickey Briggs MD*Can Sealer: Mary Dennis RD Indications: R/O PERICARDIAL EFFUSION. Study data: Transthoracic echocardiogram, limited study. Limited 2Dand limited spectral Doppler. Location: Bedside. Patient room number:PACU. Findings Left ventricle: The estimated ejection fraction is 50-54%.Pericardium: There is no pericardial effusion. Measurements Left ventricle Value RefPATIENT NAME: ROBE RITCHIE JR FRANDY, LAX 4.8 cm 4.2 - 5.8 [...] 1342 PATIENT NAME: ROBE RITCHIE JR :42:0 0G.[id number] for patient xnycAXCUCHJWJLXXZS4567-50-15B67:43:01 [facility] 2023-01-30 11:38:00 [id number] UfiLajxvoHYfkgavExCtT66UZiZxf p5sa/BGOiIFrmmwE6tpPsQVDDrl6194-86-89Q49:38:00 [facility] ([facility])Discharge SummaryREPORT#:[id number] REPORT STATUS: SignedDATE:01/30/23 TIME: 1138 PATIENT: ROBE RITCHIE UNIT #: [id number]#: [id number] [address] [birth year] AGE: 77 SEX: M ATTEND: Mickey Briggs [facility] AUTHOR: Wade Altman [facility] * ALL edits or amendments must be made on the electronic/computer document * Wade Altman 01/30/23 1138:PCP PCPDischarge to: [place] General InformationDischarge date: 01/30/23Discharge diagnosis:AFIBHospital course:Patient with [...] stable. Right groin suture removed by this DIVISION SERVICE MANAGER. No infection, bleeding, or hematoma. Dermabond applied and intact. Patient was provided with post-Watchman discharge instructions. Patient is to follow up with PCP and clinical trial data manager in 1 to 2 weeks post discharge. Patient is to follow up with clinical trial data manager for the 45-day LETA, and for anticoagulation [...] of breath, lightheadedness, or dizziness to the clinical trial data manager. Dispo: It is medically necessary that patients undergoing percutaneous left atrial appendage occlusion are admitted as an inpatient. This patient had a recovery that was earlier than expected and can be discharged today. Med Rec PCPPCP:PCP: Manuel Gandhi MD Med RecDischarge meds:Continue taking these medications:ATORVASTATIN (LIPITOR) 40 MG TAB 40 MILLIGRAM ORAL BEDTIME. Comments: TAKES AT 5686-9848 DOXAZOSIN (CARDURA) 2 MG TAB 2 MILLIGRAM ORAL BEDTIME. Comments: TAKES 3093-0635 ASPIRIN (ASPIRIN) 81 MG TAB.CHEW 81 MILLIGRAM [...] 36.5 01/30 1118 Pulse Ox 96 01/30 09 B/P 138/65 01/30 0901 Pulse 69 01/30 0901 Resp 16 01/30 0901 PATIENT WEIGHT: Weight (lb): 216Weight (oz): 14.96Weight (kg): 98.400 General appearance: alert, awake, orientedCardiovascular: regular rate rhythmRespiratory: clear to auscultation, no distressGI: soft, non-tenderExtremities: moves allNeuro/SCALP TREATMENT SPECIALIST: alert, oriented X 3Skin: dryWound/incision: Location:Right groin suture removed by this DIVISION SERVICE MANAGER. No infection, bleeding, or hematoma. Dermabond applied [...] Wade Keating. at 1529 at 1717 RPT #:[id number] OF REPORTDSDischarge iskyxwe8706-48-75C33:38:00G.UZHI52901694-5287IWCt ailable for patient lsxoFZTQAZJYUNFTBA2695-25-04Y10:29:15 [facility] 2023-01-30 11:28:00 [id number] U1oaJwZ1prOGfXXLVn/nlRvvJqqrL DY0G0GoqRDWNPQ7Vgx5n/B+Atp35707-62-31D66:28:60253 2-0113 [place] [address] PATIENT NAME: ROBE RITCHIE JR ADMIT DATE: 01/30/23ACCOUNT NO: [id number] ROOM NO: [facility] AGE: 77 REPORT TYPE: eELECTROCARDIOGRAM REPORT SEX: M ADMITTING PHYSICIAN:Raoul Dailey MD ATTENDING PHYSICIAN:Mickey Briggs MD Order:[id number] Reason : S/P WATCHMAN Test Date/Time Stamp:SatJan [...] Raoul Dailey Confirmed by:OPAL CERVANTES MD at 1916 PATIENT NAME: ROBE RITCHIE .[id number] AVAvailable for patient mlywXLUWKVMFKPKTLK2559-45-88P54:16:42 [facility] 2023-01-30 10:59:00 [id number]/J4 6Ogw2+Lxla8D/npNWf6tTrXEubL7Y CPu9pC5JoAA/r23hJ8RD07OmZ614531-37-54G72:59:23939 2-0128 [place] [address] PATIENT NAME: ROBE RITCHIE JR ADMIT DATE: 01/30/23ACCOUNT NO: [id number] ROOM NO: [facility] AGE: 78 REPORT TYPE: OPERATIVE REPORT SEX: M ADMITTING PHYSICIAN:Raoul Dailey MD ATTENDING PHYSICIAN:Mickey Briggs MD OPERATION DATE: 01/30/2023 PREOPERATIVE DIAGNOSIS: POSTOPERATIVE DIAGNOSIS: PROCEDURE PERFORMED: Left atrial appendage closure using 24 mm Watchman FLX closure device. SURGEON: Raoul Dailey MD SHOP REPAIRER: ANESTHESIA: INDICATION: Atrial fibrillation, intolerance of anticoagulants and high risk ofstroke. ACCESS: Right femoral vein, 16-Cuban closed with afhhbx-ox-eoljt suture. COMPLICATIONS: None. BLEEDING: Less than 50 [...] accessed right femoral vein and then placed 8-Cuban [place] sheath. Gave partial dose of heparin and then upgraded to 16-Cuban [place] sheath and took SL1 sheath into the SVC over a wire and then the [place] needle inside that descended into the interatrial [...] inside of it and then removed the 16-Cuban [place] sheath and applied a hhupxh-kr-uwadl suture for closure with good hemostasis. The patient tolerated the procedure very well and was transferred to recovery in stable condition. CONCLUSION: Successful left atrial appendage closure using 24 mm Watchman FLX closure device. Dictated By: Raoul Dailey MD Date Dictated: 01/30/2023 10:59:18Date Transcribed: 01/30/2023 13:19:45/Jus #: [id number] ID: [id number] by Raoul Dailey MD On 04/30/2023 10:54:12 AM at 1054 PATIENT NAME: ROBE RITCHIE JR uroget1215-22-30Y19:19:00G.AWX34081431-8318VRRzsd lable for patient twavFTGAIGRVJBVUHV0122-96-94V75:54:56 [facility] 2023-01-28 11:52:00 [id number]+qGGBSa J9DY7iFokfzqcVNpB0Dxa1nylx13y q9+AE7vkQrwnCJmbTpFnnjlBjat2427-69-81E97:52:40479 0-0051 [place] [id number] PATIENT NAME: ROBE RITCHIE JR ADMIT DATE: ACCOUNT NO: [id number] ROOM NO: AGE: 77 REPORT TYPE: eELECTROCARDIOGRAM REPORT SEX: M ADMITTING PHYSICIAN:Raoul Dailey MD ATTENDING PHYSICIAN:Raoul Dailey MD Order:[id number] Reason : PREOP Test Date/Time Stamp:SatJan 28 [...] Raoul Dailey Confirmed by:OPAL CERVANTES MD at 1615 PATIENT NAME: ROBE RITCHIE .[id number] AVAvailable for patient nkcqVCBORYADGUMAKQ0485-82-23Q17:15:43 [facility] 2022-11-06 10:30:00 [id number] diVYVbVJzvxuX4St8xym2vetaF+Fj 4b6DBCOh0ZkegiUuextpnexKdpB9047-65-88A60:30:00 [facility]Hospital[facility] Discharge SummaryREPORT#:[id number] REPORT STATUS: SignedDATE:11/06/22 TIME: 1030 PATIENT: ROBE RITCHIE UNIT #: [id number]#: [id number] [address] AGE: 77 SEX: M ATTEND: [...] control now CKD-- nephrology consult DVTP-- on 11/01- he feel well -- tele -- [...] control now CKD-- nephrology consult DVTP-- on 11/01- he feel well -- tele -- [...] 40 MILLIGRAM ORAL BEDTIME. Comments: TAKES AT 3978-0771 DOXAZOSIN (CARDURA) 2 MG TAB 2 MILLIGRAM ORAL BEDTIME. Comments: TAKES 6119-1201 ASPIRIN (ASPIRIN) 81 MG TAB.CHEW 81 MILLIGRAM [...] Result Date Time Pulse Ox 98 11/06 075 B/P 165/83 11/06 0750 B/P Mean 110.5 11/06 0750 O2 Delivery Room air 11/06 749 Temp 36.3 11/06 075 Pulse 69 11/06 0750 Resp 18 11/06 075 O2 Flow Rate 2 11/02 2044 24 [...] distentionExtremities: moves all, no calf tenderness, no edemaNeuro/SCALP TREATMENT SPECIALIST: alert, oriented X 3, CNII-XII intact, normal [...] (Auto) (14.0 - 32.0 %) 13.3 L [place] % (Auto) (4.8 - 9.0 %) 8.7 Eos % (Auto) (0.3 - 3.7 %) 5.1 H Baso % (Auto) (0.0 - 2.0 %) 0.8 Neut # (Auto) (2.0 - 7.6 x10 3/uL) 4.35 Lymph # (Auto) (1.0 - 3.8 x10 3/uL) 0.81 L [place] # (Auto) (0.1 - 0.8 x10 3/uL) [...] to: Home/Self CareAdditional Discharge Routines: PCP Follow-Up, Copyright Expert Follow-UpDiet: CardiacActivity: As Tolerated Follow-up AppointmentsPCP follow-up: PCP: Manuel Gandhi MD PCP follow up timeframe: In 1-2 weeks Special instructions:CALL TO SCHEDULE APPOINTMENTAttending Physician: Attending Physician: Kristina Hodge MD Znqaeqzgww provider 1: Provider 1: Mickey Briggs MD Specialty: CardiologyInterventional Consult follow up timeframe: In 2-3 weeks Special instructions:CALL TO SCHEDULE APPOINTMENTConsulting provider 2: Provider 2: Aramis Thomas MD Specialty: CARDIOLOGY ELECTROPHYSIOLOGY Follow up timeframe: [...] .STK-MED ONE 10/31 07 DC IV Rocuronium [place] 0 .STK-MED ONE 10/31 07 DC IV [...] best of my knowledge. at 1039 RPT #:[id number] OF REPORTDSDischarge uegxmaf2003-97-58F98:30:00G.QBVC95512475-2804ARNc ailable for patient ctfnAQAWDXSKGIPDKS8094-46-28Z26:39:34 [facility] 2022-11-06 09:18:00 [id number] Oimu6ADGs3gymlrpVXBd54jWSw538 yzc6G/6Ypqyl/guUreIPg6DSIdg2999-12-45M03:18:00 [facility] ([facility])Cardiology Progress NoteREPORT#:[id number] REPORT STATUS: SignedDATE:11/06/22 TIME: 917 PATIENT: ROBE RITCHIE UNIT #: [id number]#: [id number] [address] AGE: 77 SEX: M ATTEND: Kristina Hodge MDADM AUTHOR: Cynthia Silver * ALL edits or [...] normal temperatureLower extremity: LE assessment: edemaMusculoskeletal: normal inspectionNeuro/SCALP TREATMENT SPECIALIST: alert, oriented X 3, normal speechSkin: dry, [...] (Auto) (14.0 - 32.0 %) 13.3 L [place] % (Auto) (4.8 - 9.0 %) 8.7 Eos % (Auto) (0.3 - 3.7 %) 5.1 H Baso % (Auto) (0.0 - 2.0 %) 0.8 Neut # (Auto) (2.0 - 7.6 x10 3/uL) 4.35 Lymph # (Auto) (1.0 - 3.8 x10 3/uL) 0.81 L [place] # (Auto) (0.1 - 0.8 x10 3/uL) [...] thoracentesis 1.2 L (11/02)per Pulm Kiley to DUSTY from cardiologyOutpatient follw-up with Dr. Dailey next weekDischarge meds discharged indepth with patient at 1529 at 2339 RPT #:[id number] OF REPORTPRProgress spse5118-89-77I17:18:00G.KVTN66611420-8210UJSjnrh able for patient ijtyQXSTXRDUITSRCU3759-71-49C43:30:08 [facility] 2022-11-06 08:23:00 [id number]/MT ZJTgZ9jjhJLOsIm0Ix0YGCnrxIOOF T1ZB7SerWfaOnlQWD3uxfqp6+ed1211-60-71J42:23:00 [facility] ([facility])EP Progress NoteREPORT#:[id number] REPORT STATUS: SignedDATE:11/06/22 TIME: 822 PATIENT: ROBE RITCHIE JR UNIT #: [id number]#: [id number] [address] AGE: 77 SEX: M ATTEND: NarenveroKristina Julito MDADM AUTHOR: Wade Altman STAFF FORESTER * ALL edits or amendments must be made on the electronic/computer document * Wade Altman 11/06/22822:Objective GeneralVS/I OLast Documented: Result Date Time Pulse Ox 98 11/06 0750 B/P 165/83 11/06 0750 B/P Mean 110.5 11/06 0750 O2 Delivery Room air 11/06 0750 Temp 36.3 11/06 0750 Pulse 69 11/06 0750 Resp 18 11/06 0750 O2 Flow Rate 2 11/02 2045 24 hour I O ending at 0700: [...] on oxygen, no distressAbdomen: soft, non-tenderExtremities: moves allNeuro/SCALP TREATMENT SPECIALIST: alert, oriented X 3Skin: dryWound/incision: Location:PPM site [...] 100mg bid x5 days-no lovenox or heparin tnlc-ia-ihsphi AC eliquis 48hrs post-op-ok to d/c from EP standpoint; outpt f/u, , 2 weeks 2. Afib-s/p aborted attempt for LAAO via WATCHMAN per -s/p [place], [place] thrombus-no AA therapy-AC eliquis 3. CHF-per cardio, LVEF nml Consultants: cardiology, nephrology at 1134 at 2148 RPT #:[id number] OF REPORTPRProgress fgbs8278-09-33B87:23:00G.OFRX01105184-3464QQHkjvg able for patient xzmgXAPTABETHZUMXY0699-56-64Y56:35:06 [facility] 2022-11-06 08:05:00 L87450431336C+pfcj2e D4z/KsmgWuQhHxW57NcWqWgBw2gfg jrZadG/sHd6OjFRnyf5Sd7QJNNM8862-33-88I89:05:00 [facility] CenterNephrology Progress NoteREPORT#:[id number] REPORT STATUS: SignedDATE:11/06/22 TIME: 0805 PATIENT: ROBE RITCHIE UNIT #: [id number]#: [id number] [address] AGE: 77 SEX: M ATTEND: Kristina Hodge AUTHOR: Sherly Gomes MD * ALL edits or amendments must be made on the electronic/computer document * SubjectiveChief complaint:For watchman deviceHPI:Patient seen and evaluated, discussed with care team, 77-year-old male with history of diabetes mellitus, hypertension, hyperlipidemia, chronic kidney disease followed by custodial operations manager in [place] and [place] who presented for watchman's [...] pitting edema, non-tenderMusculoskeletal: no CVA tenderness, no tendernessNeuro/SCALP TREATMENT SPECIALIST: alert, normal speechSkin: dry, intact ResultsFindings/Data:Laboratory Tests [...] (14.0 - 32.0 %) 12.0 L 16.3 [place] % (Auto) (4.8 - 9.0 %) 7.4 8.6 Eos % (Auto) (0.3 - 3.7 %) 3.9 H 8.2 H Baso % (Auto) (0.0 - 2.0 %) 0.6 1.1 Neut # (Auto) (2.0 - 7.6 x10 3/uL) 7.12 3.05 Lymph # (Auto) (1.0 - 3.8 x10 3/uL) 1.13 0.76 L [place] # (Auto) (0.1 - 0.8 x10 3/uL) [...] 2133 Occult Blood - COMP STOOL Recent Impressions:RADIOLOGY [...] 166, blood count 6.1Consultants: cardiology, nephrology at [address] [place] [address] #:[id number] OF REPORTPRProgress hyic6041-81-90J42:05:00G.ZXJT68994795-4262CRXptoj able for patient vjsbFGIMQYJRBQJSTN3793-66-85M59:02:49 [facility] 2022-11-05 16:16:00 N59441759190trjRrV0I vTRuzzzfzjpKZM/PIycTz4L/zex7F iwhaoSpQBST8ViFRwY+9+rvUIz32546-83-08L36:16:00 [facility] ([facility])DT Operative NoteREPORT#:[id number] REPORT STATUS: SignedDATE:11/05/22 TIME: 1615 PATIENT: ROBE RITCHIE UNIT #: [id number]#: [id number] [address] AGE: 77 SEX: M ATTEND: Kristina Hodge AUTHOR: Aramis Thomas MD * ALL edits or amendments must be made on the electronic/computer document * Operative Report Operative NoteNote:Permanent pacemaker implantation procedure note Procedure Date: 11/05/2022 Operators: Aramis Thomas MD. Referring: Dr. Mickey Conner MD. Pre-Op [...] great injury confirming adequate numbers on interrogation. FRISIAN showed septal position of the lead. Next [...] sponges, and a normal heart border on FRISIAN view. Thepatient tolerated the procedure well and was returned to a telemetry bed in stable condition. Device:St Mani Model [id number], Serial # [id number]: Model 2088TC/46, Serial # [id number].RV: Model 1948/52, Serial # [id number]. P wave: 1.4 mV A.fibRA pacing impedance: [...] No driving until follow-up. at 1619 RPT #:[id number] OF REPORTOPOperative yhydgh9281-28-33S95:16:00G.TNIO72991417-1414XKOmc ilable for patient uncwBXVIXMUEQXYFGG0688-60-50L58:20:19 [facility] 2022-11-05 14:59:00 Z13971304388hh7IlR06 K/Btu1+THEf+Kb/v+hmxAEaF0y0/M g3pZmvFLAmgCDKKjQp2Vx6iqUuR4916-37-31O25:59:00 [facility] ([facility])Pulmonology Progress NoteREPORT#:[id number] REPORT STATUS: SignedDATE:11/05/22 TIME: 1459 PATIENT: ROBE RITCHIE UNIT #: [id number]#: [id number] [address] AGE: 77 SEX: M ATTEND: Kristina Hodge MDA AUTHOR: Ricky Lassiter MD * ALL edits [...] no edema, no peripheral edemaMusculoskeletal: no muscle spasmNeuro/SCALP TREATMENT SPECIALIST: alert ResultsFindings/Data:Laboratory Tests 11/05/22 0510:[Embedded Image Not Available]Laboratory Tests 11/05 11/05 11/05 11/05 1859 1636 0558 0510 Chemistry Sodium (134 [...] (Auto) (14.0 - 32.0 %) 12.0 L [place] % (Auto) (4.8 - 9.0 %) 7.4 Eos % (Auto) (0.3 - 3.7 %) 3.9 H Baso % (Auto) (0.0 - 2.0 %) 0.6 Neut # (Auto) (2.0 - 7.6 x10 3/uL) 7.12 Lymph # (Auto) (1.0 - 3.8 x10 3/uL) 1.13 [place] # (Auto) (0.1 - 0.8 x10 3/uL) [...] code Consultants: cardiology, nephrology at 2033 RPT #:[id number] OF REPORTPRProgress kmaw5363-63-92Q37:59:00G.FNXU73237256-4399NHSwvgx able for patient ubktIFMGZTFUZCQHTI2344-46-71T35:34:01 [facility] 2022-11-05 11:42:00 [id number] UeX4wC2EBsH8dzNcHZmrPKZxxBhGX qTQRCOsG98RH5meKdjr6JHqoFkZ9697-31-86I61:42:00 [facility] ([facility])Juanjose/Oncology Progress NoteREPORT#:[id number] REPORT STATUS: SignedDATE:11/05/22 TIME: 1142 PATIENT: ROBE RITCHIE UNIT #: [id number]#: [id number] [address] AGE: 77 SEX: M ATTEND: [...] 11/05 719 O2 Delivery Room air 11/05 0600 O2 Flow Rate 2 11/02 2044 General appearance: alert, awake, orientedHEENT: anicteric, atraumaticCardiovascular: bradycardia, irregularly irregularRespiratory: crackles, decreased breath soundsAbdomen: non-tender, normal bowel sounds, softExtremities: pitting edemaNeuro/SCALP TREATMENT SPECIALIST: alert, oriented X 3skin dry, intactPsychiatry: normal [...] - 2.40 mg/dL) 2.11 Laboratory Tests 11/05 05 Coagulation PTT ([place]) (25.0 - 39.5 Seconds) 37.5 Laboratory Tests [...] (Auto) (14.0 - 32.0 %) 12.0 L [place] % (Auto) (4.8 - 9.0 %) 7.4 Eos % (Auto) (0.3 - 3.7 %) 3.9 H Baso % (Auto) (0.0 - 2.0 %) 0.6 Neut # (Auto) (2.0 - 7.6 x10 3/uL) 7.12 Lymph # (Auto) (1.0 - 3.8 x10 3/uL) 1.13 [place] # (Auto) (0.1 - 0.8 x10 3/uL) [...] Carlos Alberto Barfield MD at 1144 RPT #:[id number] OF REPORTPRProgress qdxp4726-55-73F32:42:00G.ZNIC44624781-3596PELgvqw able for patient encnCMYLQNZLWKFJWK4374-25-99W59:44:53 [facility] 2022-11-05 08:59:00 Y08094875104GWQYmCr9 3SmbPdeqk3fdvTdOMiG8R4Ei8gEHF XEVz2702taOVf7YLcs8icIVVgip8863-00-56Q05:59:00 [facility] ([facility])Cardiology Progress NoteREPORT#:[id number] REPORT STATUS: SignedDATE:11/05/22 TIME: 0859 PATIENT: ROBE RITCHIE UNIT #: [id number]#: [id number] [address] AGE: 77 SEX: M ATTEND: Kristina Hodge MDADM AUTHOR: Cynthia Silver * ALL edits or [...] normal temperatureLower extremity: LE assessment: edemaMusculoskeletal: normal inspectionNeuro/SCALP TREATMENT SPECIALIST: alert, oriented X 3, normal speechSkin: dry, [...] 2.11 Laboratory Tests 11/05 0510 Coagulation PTT ([place]) (25.0 - 39.5 Seconds) 37.5 Laboratory Tests [...] (Auto) (14.0 - 32.0 %) 12.0 L [place] % (Auto) (4.8 - 9.0 %) 7.4 Eos % (Auto) (0.3 - 3.7 %) 3.9 H Baso % (Auto) (0.0 - 2.0 %) 0.6 Neut # (Auto) (2.0 - 7.6 x10 3/uL) 7.12 Lymph # (Auto) (1.0 - 3.8 x10 3/uL) 1.13 [place] # (Auto) (0.1 - 0.8 x10 3/uL) [...] 0.1 x10 3/uL) 0.00 Laboratory Tests 11/05 07 Serology SARS-CoV-2 Ag (Rapid) (Negative) Negative Laboratory [...] (11/02)per Pulm at 1702 at 2338 RPT #:[id number] OF REPORTPRProgress hkxx5125-34-18Z68:59:00G.IVAX28159513-9770WXGvuqk able for patient imzjFRDKPYPSVPKHCL7111-48-94D80:02:55 [facility] 2022-11-05 08:55:00 P90431289667toLeKGXJ r8xSKoO+H8LHpD+HiAYeM+dig/e13 5pUhOiH+2ICd4864IMXTOEFuMQn9732-10-03F02:55:00 [facility])Clinical NoteREPORT#:[id number] REPORT STATUS: SignedDATE:11/05/22 TIME: 0855 PATIENT: ROBE RITCHIE UNIT #: [id number]#: [id number] [address] AGE: 77 SEX: M ATTEND: Kristina Hodge AUTHOR: Dionne Smith APRN * ALL edits or amendments must be made on the electronic/computer document * Clinical NoteNote:Chart reviewed, pt out room for procedure. Will see in AM. Labs in AM. at 0855 RPT #:[id number] OF REPORTCLClinical okdl2768-74-23E88:55:00G.EGFO55853525-2425YVMxism able for patient rhzkXSUDARBZHWSIMT7465-43-85A44:56:09 [facility] 2022-11-05 07:43:00 H34301427603d4b7yr3z JUbBBMSN3U/85hskF57vNcTDl7h3o fHYM0JLttqaxM8HmQdYL1acRdwX5359-06-09F37:43:00 [facility]ph[facility] Progress NoteREPORT#:[id number] REPORT STATUS: SignedDATE:11/05/22 TIME: 07 PATIENT: ORBE RITCHIE JR UNIT #: [id number]#: [id number] [address] AGE: 77 SEX: M ATTEND: Kristina Hodge MDADM AUTHOR: Sherly Gomes MD * ALL edits or amendments must be made on the electronic/computer document * SubjectiveChief complaint:For watchman deviceHPI:Patient seen and evaluated, discussed with care team, 77-year-old male with history of diabetes mellitus, hypertension, hyperlipidemia, chronic kidney disease followed by custodial operations manager in [place] and [place] who presented for watchman's [...] pitting edema, non-tenderMusculoskeletal: no CVA tenderness, no tendernessNeuro/SCALP TREATMENT SPECIALIST: alert, normal speechSkin: dry, intact ResultsFindings/Data:Laboratory Tests [...] Magnesium (1.80 - 2.40 mg/dL) 2.07 2.10 11/02 11/02 11/02 11/02 11/02 2031 1735 1111 0803 0803 Chemistry Sodium (134 [...] 34.5 Laboratory Tests 11/05 0510 Coagulation PTT ([place]) (25.0 - 39.5 Seconds) 37.5 Laboratory Tests [...] 32.0 %) 12.0 L 16.3 19.8 17.8 [place] % (Auto) (4.8 - 9.0 %) 7.4 [...] 1.13 0.76 L 0.90 L 0.90 L [place] # (Auto) (0.1 - 0.8 x10 3/uL) [...] 106 Laboratory Tests 11/05 0510 Coagulation PTT ([place]) (25.0 - 39.5 Seconds) 37.5 Laboratory Tests [...] (Auto) (14.0 - 32.0 %) 12.0 L [place] % (Auto) (4.8 - 9.0 %) 7.4 Eos % (Auto) (0.3 - 3.7 %) 3.9 H Baso % (Auto) (0.0 - 2.0 %) 0.6 Neut # (Auto) (2.0 - 7.6 x10 3/uL) 7.12 Lymph # (Auto) (1.0 - 3.8 x10 3/uL) 1.13 [place] # (Auto) (0.1 - 0.8 x10 3/uL) [...] 1700 cc.Consultants: cardiology, nephrology at 1034 RPT #:[id number] OF REPORTPRProgress gvew6210-87-69V16:43:00G.TYSB34459700-2637MIDagep able for patient cielURWXHUPQTEAJHZ4653-72-97K16:34:57 [facility] 2022-11-04 12:14:00 P77037298989rfvLcAjQ zZUZcFL7p+e36RPC99cLLxlpWQhS6 fqJnN/Tqp2k35MhJKS8J8HkgmSm1670-51-22D38:14:00 [facility]Hospital[facility] Progress NoteREPORT#:[id number] REPORT STATUS: SignedDATE:11/04/22 TIME: 1214 PATIENT: ROBE RITCHIE UNIT #: [id number]#: [id number] [address] AGE: 77 SEX: M ATTEND: [...] canceled . 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 he complaint of sob for 2 [...] distentionExtremities: moves all, no calf tenderness, no edemaNeuro/SCALP TREATMENT SPECIALIST: alert, oriented X 3, CNII-XII intact, normal [...] % (Auto) (14.0 - 32.0 %) 16.3 [place] % (Auto) (4.8 - 9.0 %) 8.6 Eos % (Auto) (0.3 - 3.7 %) 8.2 H Baso % (Auto) (0.0 - 2.0 %) 1.1 Neut # (Auto) (2.0 - 7.6 x10 3/uL) 3.05 Lymph # (Auto) (1.0 - 3.8 x10 3/uL) 0.76 L [place] # (Auto) (0.1 - 0.8 x10 3/uL) [...] -- manage as cardiology hematology consult -- exterminator helper AC start eliuis now DM-- hold metformin [...] .STK-MED ONE 10/31 07 DC IV Rocuronium [place] 0 .STK-MED ONE 10/31 07 DC IV Heparin Sodium 0 .STK-MED ONE 10/31 0558 DC 10/31 .ROUTE 0751 Heparin Sodium/ 2,000 ML .STK-MED ONE 10/31 0558 DC 10/31 Sodium Chloride IV 0751 Heparin Sodium/ 500 ML .STK-MED ONE 10/31 0558 DC 10/31 Sodium Chloride IV 0751 Bupivacaine HCl 0 .STK-MED ONE 10/31 0657 DC .ROUTE Acetaminophen 0 .STK-MED ONE 10/31 642 DC .ROUTE Gabapentin 0 .STK-MED ONE 10/31 642 DC .ROUTE Lidocaine HCl 0 .ST-MED ONE 10/31 642 DC .ROUTE Acetaminophen 1,000 [...] best of my knowledge. at 1757 RPT #:[id number] OF REPORTPRProgress nioe5035-39-39V21:14:00G.UXBD28686485-3679TFEless able for patient xctqGKKTWQXUYGTBTT4621-13-66L51:58:25 [facility] 2022-11-04 09:03:00 I437969804673jIBpi6f U0J/3ux9be/qOfwdrYEvrjG7grdhj MAGXJlVF6+jqUwtazo6veudW8To1068-22-35Z08:03:00 [facility] CenterCard[facility] Progress NoteREPORT#:[id number] REPORT STATUS: SignedDATE:11/04/22 TIME: 09 PATIENT: ROBE RITCHIE UNIT #: [id number]#: [id number] [address] AGE: 77 SEX: M ATTEND: Kristina Hodge AUTHOR: Erica Vaughan NP * ALL edits [...] normal temperatureLower extremity: LE assessment: edemaMusculoskeletal: normal inspectionNeuro/SCALP TREATMENT SPECIALIST: alert, oriented X 3, normal speechSkin: dry, [...] % (Auto) (14.0 - 32.0 %) 16.3 [place] % (Auto) (4.8 - 9.0 %) 8.6 Eos % (Auto) (0.3 - 3.7 %) 8.2 H Baso % (Auto) (0.0 - 2.0 %) 1.1 Neut # (Auto) (2.0 - 7.6 x10 3/uL) 3.05 Lymph # (Auto) (1.0 - 3.8 x10 3/uL) 0.76 L [place] # (Auto) (0.1 - 0.8 x10 3/uL) [...] in a.m. at 1226 at 1320 RPT #:[id number] OF REPORTPRProgress jckp8444-03-46Y50:03:00G.CBIU17219669-5255GEZwrgt able for patient rlnqQYIFHBMUVWNXRD2618-76-55L99:26:56 [facility] 2022-11-04 08:03:00 J89812105112rQiCq3N6 mOa70CyMLRweFjHahhBI8NOtI8kjG f2AIUJkBYzaL26i/KvMxYgVD+gF8444-08-25H94:03:00 [facility] ([facility])Nephrology Progress NoteREPORT#:[id number] REPORT STATUS: SignedDATE:11/04/22 TIME: 0803 PATIENT: ROBE RITCHIE JR UNIT #: [id number]#: [id number] ROOM/BED: G4421-1DOB: [birth year] AGE: 77 SEX: M ATTEND: Kristina Hodge MDADM AUTHOR: Sherly Gomes MD * ALL edits or amendments must be made on the electronic/computer document * SubjectiveChief complaint:For watchman deviceHPI:Patient seen and evaluated, discussed with care team, 77-year-old male with history of diabetes mellitus, hypertension, hyperlipidemia, chronic kidney disease followed by custodial operations manager in [place] and [place] who presented for watchman's [...] pitting edema, non-tenderMusculoskeletal: no CVA tenderness, no tendernessNeuro/SCALP TREATMENT SPECIALIST: alert, normal speechSkin: dry, intact ResultsFindings/Data:Laboratory Tests [...] (14.0 - 32.0 %) 16.3 19.8 17.8 [place] % (Auto) (4.8 - 9.0 %) 8.6 10.4 H 9.5 H Eos % (Auto) (0.3 - 3.7 %) 8.2 H 5.9 H 6.3 H Baso % (Auto) (0.0 - 2.0 %) 1.1 1.1 1.0 Neut # (Auto) (2.0 - 7.6 x10 3/uL) 3.05 2.84 3.29 Lymph # (Auto) (1.0 - 3.8 x10 3/uL) 0.76 L 0.90 L 0.90 L [place] # (Auto) (0.1 - 0.8 x10 3/uL) [...] % (Auto) (14.0 - 32.0 %) 16.3 [place] % (Auto) (4.8 - 9.0 %) 8.6 Eos % (Auto) (0.3 - 3.7 %) 8.2 H Baso % (Auto) (0.0 - 2.0 %) 1.1 Neut # (Auto) (2.0 - 7.6 x10 3/uL) 3.05 Lymph # (Auto) (1.0 - 3.8 x10 3/uL) 0.76 L [place] # (Auto) (0.1 - 0.8 x10 3/uL) [...] p.o. twice dailyConsultants: cardiology, nephrology at 0929 [facility] #:[id number] OF REPORTPRProgress tqma7015-12-49Y43:03:00G.[id number] able for patient zqgcDUYISDZFKRZJTN1505-14-83G13:30:01 [facility] 2022-11-03 15:06:00 [id number] B7MpP1EJ+uCZjDFXFokHMaTUSP5SX sH1fKPYf7nPW3AIMERwDV0GfzYF9458-62-58H30:06:00 [facility] Hospitalist Progress NoteREPORT#:[id number] REPORT STATUS: SignedDATE:11/03/22 TIME: 1506 PATIENT: ROBE RITCHIE UNIT #: [id number]#: [id number] [address] AGE: 77 SEX: M ATTEND: [...] canceled . 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 he complaint of sob for 2 [...] distentionExtremities: moves all, no calf tenderness, no edemaNeuro/SCALP TREATMENT SPECIALIST: alert, oriented X 3, CNII-XII intact, normal [...] % (Auto) (14.0 - 32.0 %) 19.8 [place] % (Auto) (4.8 - 9.0 %) 10.4 H Eos % (Auto) (0.3 - 3.7 %) 5.9 H Baso % (Auto) (0.0 - 2.0 %) 1.1 Neut # (Auto) (2.0 - 7.6 x10 3/uL) 2.84 Lymph # (Auto) (1.0 - 3.8 x10 3/uL) 0.90 L [place] # (Auto) (0.1 - 0.8 x10 3/uL) [...] -- manage as cardiology hematology consult -- exterminator helper AC start eliuis now DM-- hold metformin [...] .STK-MED ONE 10/31 07 DC IV Rocuronium [place] 0 .STK-MED ONE 10/31 0700 DC IV [...] ONE 10/31 642 DC .ROUTE Gabapentin 0 .ST-MED ONE 10/31 642 DC .ROUTE Lidocaine HCl 0 .[facility]-MED ONE 10/31 642 DC .ROUTE Acetaminophen 1,000 [...] the best of my knowledge. at 1658 RPT #:[id number] OF REPORTPRProgress qazv4639-62-81Q47:06:00G.[id number] able for patient wosqOLDXVZXNRDJWXS8790-04-70F32:59:08 [facility] 2022-11-03 08:55:00 [id number] HwJ2n6ItN2+6ELaPhg31MiD7wRLqT M00wGjdO1pCUDHB8/vfZ6CpSFq76830-42-01Y61:55:00 [facility] CenterCard[facility] Progress NoteREPORT#:[id number] REPORT STATUS: SignedDATE:11/03/22 TIME: 0855 PATIENT: ROBE RITCHIE UNIT #: [id number]#: [id number] [address] [birth year] AGE: 77 SEX: M ATTEND: Kristina Hodge AUTHOR: Erica Vaughan NP * ALL edits [...] normal temperatureLower extremity: LE assessment: edemaMusculoskeletal: normal inspectionNeuro/SCALP TREATMENT SPECIALIST: alert, oriented X 3, normal speechSkin: dry, [...] % (Auto) (14.0 - 32.0 %) 19.8 [place] % (Auto) (4.8 - 9.0 %) 10.4 H Eos % (Auto) (0.3 - 3.7 %) 5.9 H Baso % (Auto) (0.0 - 2.0 %) 1.1 Neut # (Auto) (2.0 - 7.6 x10 3/uL) 2.84 Lymph # (Auto) (1.0 - 3.8 x10 3/uL) 0.90 L [place] # (Auto) (0.1 - 0.8 x10 3/uL) [...] effusion. Impression By: [id number] Agus Leon M.D. Results: labs reviewed, vital signs [...] stable.Cont supportive care. at 1340 at 0653 [facility] #:[id number] OF REPORTPRProgress gidw2359-75-43C45:55:00G.IQWH28130955-9246OWGptrg able for patient voacGCAREMZSPUWGIN3549-91-29Z49:40:14 [facility] 2022-11-03 08:31:00 [id number]+hiF KLnZ87w23zGO/NP4vXIRz6w0vfTkf /4hPSvwh2X+Flu6aj62WpIyF1Ap7702-22-47O28:31:00 [facility] CenterNephrology Progress NoteREPORT#:[id number] REPORT STATUS: SignedDATE:11/03/22 TIME: 08 PATIENT: ROBE RITCHIE UNIT #: [id number]#: [id number] [address] AGE: 77 SEX: M ATTEND: Kristina Hodge [facility] AUTHOR: Sherly Gomes MD * ALL edits or amendments must be made on the electronic/computer document * SubjectiveChief complaint:For watchman deviceHPI:Patient seen and evaluated, discussed with care team, 77-year-old male with history of diabetes mellitus, hypertension, hyperlipidemia, chronic kidney disease followed by custodial operations manager in [place] and [place] who presented for watchman's device placement, [...] pitting edema, non-tenderMusculoskeletal: no CVA tenderness, no tendernessNeuro/SCALP TREATMENT SPECIALIST: alert, normal speechSkin: dry, intact ResultsFindings/Data:Laboratory Tests [...] 11/02 11/02 11/01 11/01 0803 0803 0533 1959 1716 Chemistry Sodium (134 - 147 mEq/L) [...] (14.0 - 32.0 %) 19.8 17.8 14.2 [place] % (Auto) (4.8 - 9.0 %) 10.4 H 9.5 H 7.6 Eos % (Auto) (0.3 - 3.7 %) 5.9 H 6.3 H 6.6 H Baso % (Auto) (0.0 - 2.0 %) 1.1 1.0 0.9 Neut # (Auto) (2.0 - 7.6 x10 3/uL) 2.84 3.29 3.83 Lymph # (Auto) (1.0 - 3.8 x10 3/uL) 0.90 L 0.90 L 0.77 L [place] # (Auto) (0.1 - 0.8 x10 3/uL) [...] lobe infiltrate and pleural effusion. Impression By: Ely Leon M.D. Laboratory Tests 11/03 11/03 11/02 [...] % (Auto) (14.0 - 32.0 %) 19.8 [place] % (Auto) (4.8 - 9.0 %) 10.4 H Eos % (Auto) (0.3 - 3.7 %) 5.9 H Baso % (Auto) (0.0 - 2.0 %) 1.1 Neut # (Auto) (2.0 - 7.6 x10 3/uL) 2.84 Lymph # (Auto) (1.0 - 3.8 x10 3/uL) 0.90 L [place] # (Auto) (0.1 - 0.8 x10 3/uL) [...] iron storesConsultants: cardiology, nephrology at 1008 RPT #:[id number] OF REPORTPRProgress ikrx9586-84-99U40:31:00G.VDTY83623951-0599TGQggob able for patient tppyBWNYBXHZBEMRCT7273-01-48N21:09:04 [facility] 2022-11-02 17:15:00 [id number] UClSzjviqXS1Azvtubq4Yb+Hj4pgN RM3tAsXSoa/l8qGBDZwlKjOtQF83191-89-20M76:15:00 [facility] ([facility])Pulmonology Progress NoteREPORT#:[id number] REPORT STATUS: SignedDATE:11/02/22 TIME: 1715 PATIENT: ROBE RITCHIE UNIT #: [id number]#: [id number] [address] [birth year] AGE: 77 SEX: M ATTEND: [...] Result Date Time Pulse Ox 95 11/02 111 B/P 147/68 11/02 1114 B/P Mean 94.5 11/02 111 O2 Delivery Room air 11/02 1113 Temp 36.4 11/02 1114 Pulse 40 11/02 [...] improvedPlan on pacemaker placement on Saturday Quality: [facility] Care Current MedicationsCurrent medication review: Current [...] .STK-MED ONE 10/31 699 DC IV Rocuronium [place] 0 .STK-MED ONE 10/31 699 DC IV [...] best of my knowledge. at 1716 RPT #:[id number] OF REPORTPRProgress bgdh7462-70-04O81:15:00G.SPUF29675434-4485TGQcxch able for patient mxsbQNRSDGLZTNFQWZ3664-15-95L44:16:25 [facility] 2022-11-02 16:50:00 [id number] 8O8XIlReWRzxweOvLcRdEZ1//uO5q VU/s6STsE14nw1kgPNSZgKCcfKY2663-22-23D07:50:00 [facility] ([facility])Juanjose/Oncology Progress NoteREPORT#:[id number] REPORT STATUS: SignedDATE:11/02/22 TIME: 1650 PATIENT: ERMAROBE MURPHYPRETTY ESCALONA UNIT #: [id number]#: [id number] [address] [birth year] AGE: 77 SEX: M ATTEND: [...] soundsAbdomen: non-tender, normal bowel sounds, softExtremities: pitting edemaNeuro/SCALP TREATMENT SPECIALIST: alert, oriented X 3skin dry, intactPsychiatry: normal [...] % (Auto) (14.0 - 32.0 %) 17.8 [place] % (Auto) (4.8 - 9.0 %) 9.5 H Eos % (Auto) (0.3 - 3.7 %) 6.3 H Baso % (Auto) (0.0 - 2.0 %) 1.0 Neut # (Auto) (2.0 - 7.6 x10 3/uL) 3.29 Lymph # (Auto) (1.0 - 3.8 x10 3/uL) 0.90 L [place] # (Auto) (0.1 - 0.8 x10 3/uL) [...] Carlos Alberto Barfield MD at 1652 RPT #:[id number] OF REPORTPRProgress rlje7742-49-34M81:50:00G.YDUK03109595-4264OWSuoer able for patient ldpdNGYYLOYLUPZNIC7251-38-00K78:53:01 [facility] 2022-11-02 15:38:00 [id number] auTBvQr1fUN+eOE5v8+Fh3vzdGeHo XU5XIgcs8EEdHdJ6CM8nntZRq1/1726-74-62J51:38:00 [facility] ([facility])EP Progress NoteREPORT#:[id number] REPORT STATUS: SignedDATE:11/02/22 TIME: 1538 PATIENT: ROBE RITCHIE JR UNIT #: [id number]#: [id number] [address] [birth year] AGE: 77 SEX: M ATTEND: Kristina Hodge MDADM AUTHOR: Wade Altman STAFF FORESTER * ALL edits or amendments must be made on the electronic/computer document * Wade Altman 11/02/22 1538:Objective GeneralVS/I OLast Documented: Result Date [...] on oxygen, no distressAbdomen: soft, non-tenderExtremities: moves allNeuro/SCALP TREATMENT SPECIALIST: alert, oriented X 3Findings/Data:Laboratory Tests: 11/02 11/02 [...] % (Auto) (14.0 - 32.0 %) 17.8 [place] % (Auto) (4.8 - 9.0 %) 9.5 H Eos % (Auto) (0.3 - 3.7 %) 6.3 H Baso % (Auto) (0.0 - 2.0 %) 1.0 Neut # (Auto) (2.0 - 7.6 x10 3/uL) 3.29 Lymph # (Auto) (1.0 - 3.8 x10 3/uL) 0.90 L [place] # (Auto) (0.1 - 0.8 x10 3/uL) [...] Report Impression - Status: SIGNED Entered: 11/02/2022 6854 IMPRESSION: Decreased but persistent right lower lobe infiltrate and pleural effusion. Impression By: [email or web address] - Uriel Leon M.D. Laboratory Tests 11/02 0803 Chemistry Magnesium (1.80 - 2.40 mg/dL) 2.03 Diagnosis, Assessment PlanFree Text A P:1. Bradycardia-currently Afib 30s-50s-no AVN-blocking meds-no reversible causes-plan for PPM implantation Saturday,11/05-899, per () 2. Afib-s/p aborted attempt for LAAO via WATCHMAN per -s/p [place], [place] thrombus-no AA therapy-AC eliquis; d/c per pulm 3. CHF-per cardio, LVEF nml Consultants: cardiology, nephrology at 1547 at 1309 RPT #:[id number] OF REPORTPRProgress fche1290-49-88U42:38:00G.WEBR45966303-8723ROPjqjn able for patient jzndSUQYZSIQMNPHOV5811-17-90A38:47:24 [facility] 2022-11-02 10:51:00 [id number] JbpIgBameXUg6rbnrKKCOoDWuzAjD bLTzmOsUe47tmeP7ZEpJ8OMALOz8634-91-59T15:51:00 [facility] CenterHospitalist Progress NoteREPORT#:[id number] REPORT STATUS: SignedDATE:11/02/22 TIME: 1051 PATIENT: ROBE RITCHIE UNIT #: [id number]#: [id number] [address] AGE: 77 SEX: M ATTEND: [...] canceled . 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 he complaint of sob for 2 [...] distentionExtremities: moves all, no calf tenderness, no edemaNeuro/SCALP TREATMENT SPECIALIST: alert, oriented X 3, CNII-XII intact, normal [...] % (Auto) (14.0 - 32.0 %) 17.8 [place] % (Auto) (4.8 - 9.0 %) 9.5 H Eos % (Auto) (0.3 - 3.7 %) 6.3 H Baso % (Auto) (0.0 - 2.0 %) 1.0 Neut # (Auto) (2.0 - 7.6 x10 3/uL) 3.29 Lymph # (Auto) (1.0 - 3.8 x10 3/uL) 0.90 L [place] # (Auto) (0.1 - 0.8 x10 3/uL) [...] .STK-MED ONE 10/31 07 DC IV Rocuronium [place] 0 .STK-MED ONE 10/31 07 DC IV [...] to the best of my knowledge. at 1726 RPT #:[id number] OF REPORTPRProgress mhdf5772-76-50I19:51:00G.BATL49995043-3023FFVkrdy able for patient stgfCXEXGJWNHOCOWO4610-66-70Z20:29:36 [facility] 2022-11-02 08:47:00 [id number] MG/tuNmzb5Sz+uM8awJ9CzlOjM8yA DzYV3FJXERN1KdFYpaunog5goEC2009-81-50G54:47:00 [facility] ([facility])Cardiology Progress NoteREPORT#:[id number] REPORT STATUS: SignedDATE:11/02/22 TIME: 08 PATIENT: ROBE RITCHIE UNIT #: [id number]#: [id number] [address]: [birth year] AGE: 77 SEX: M ATTEND: [...] 16 96/56 69.3 95 Room air 11/01 2000 36.5 45 16 146/64 91.0 93 Room [...] urinary catheterLower extremity: LE assessment: edemaMusculoskeletal: normal inspectionNeuro/SCALP TREATMENT SPECIALIST: alert, oriented X 3, normal speechSkin: dry, [...] Report Impression - Status: SIGNED Entered: 11/01/2022 0479 IMPRESSION: 1. Increased moderate right lower lobe pneumonia with small right pleural effusion. 2. Increased left base atelectasis/infiltrate. Impression By: [email or web address] - Ronald Escalante M.D. Results: labs reviewed, vital signs reviewedTelemetry Interpretation:slow atrial fibrillation Diagnosis, Assessment PlanProblem List/A P: 1. Atrial fibrillation 2. KRISTI (acute kidney injury) 3. Hx of CABG 4. Diastolic CHF Plan discussed with: patient, consultants (EP DIVISION SERVICE MANAGER), nurse Free Text DxA P NotesFree Text [...] for thoracentesis at 1100 at 2338 RPT #:[id number] OF REPORTPRProgress jmuk6590-85-26R62:47:00G.DXBE59813329-6162XLFwvtb able for patient krmbEWNTPNOOZWKLVA1846-36-42W26:00:24 [facility] 2022-11-02 06:42:00 [id number] Zs/WY16Buw4l8y+JIbx3bwjGM8Krz u0kt7xShh4sx14fvBQJl5sDaEPs2978-74-53W07:42:00 [facility] CenterNephrology Progress NoteREPORT#:[id number] REPORT STATUS: SignedDATE:11/02/22 TIME: 0642 PATIENT: ROBE RITCHIE UNIT #: [id number]#: [id number] [address] [birth year] AGE: 77 SEX: M ATTEND: Kristina Hodge AUTHOR: Sherly Gomes MD * ALL edits or amendments must be made on the electronic/computer document * SubjectiveChief complaint:For watchman deviceHPI:Patient seen and evaluated, discussed with care team, 77-year-old male with history of diabetes mellitus, hypertension, hyperlipidemia, chronic kidney disease followed by custodial operations manager in [place] and [place] who presented for watchman's [...] pitting edema, non-tenderMusculoskeletal: no CVA tenderness, no tendernessNeuro/SCALP TREATMENT SPECIALIST: alert, normal speechSkin: dry, intact ResultsFindings/Data:Laboratory Tests [...] % (Auto) (14.0 - 32.0 %) 14.2 [place] % (Auto) (4.8 - 9.0 %) 7.6 Eos % (Auto) (0.3 - 3.7 %) 6.6 H Baso % (Auto) (0.0 - 2.0 %) 0.9 Neut # (Auto) (2.0 - 7.6 x10 3/uL) 3.83 Lymph # (Auto) (1.0 - 3.8 x10 3/uL) 0.77 L [place] # (Auto) (0.1 - 0.8 x10 3/uL) [...] Report Impression - Status: SIGNED Entered: 11/01/2022 1100 IMPRESSION: No evidence of deep vein thrombosis. Impression By: PearlJJerrica Leon M.D.ULTRASOUND - US RETROPERITONEAL COM 11/01 [...] % (Auto) (14.0 - 32.0 %) 14.2 [place] % (Auto) (4.8 - 9.0 %) 7.6 Eos % (Auto) (0.3 - 3.7 %) 6.6 H Baso % (Auto) (0.0 - 2.0 %) 0.9 Neut # (Auto) (2.0 - 7.6 x10 3/uL) 3.83 Lymph # (Auto) (1.0 - 3.8 x10 3/uL) 0.77 L [place] # (Auto) (0.1 - 0.8 x10 3/uL) [...] 8 dosesConsultants: cardiology, nephrology at 1012 RPT #:[id number] OF REPORTPRProgress hwxi0763-23-56J74:42:00G.VSUE40469782-8152GXWvbds able for patient vcjxROMYUCDMMZTMAW9498-00-58N68:12:56 [facility] 2022-11-01 17:50:00 [id number] pqt8jdqQ68qnWBujsF5JFGY5PXitM J1+Rb8jvKZq4gMUBLxNNnN4a6uI1849-14-55D64:50:00 [facility] CenterJuanjose/Oncology Progress NoteREPORT#:[id number] REPORT STATUS: SignedDATE:11/01/22 TIME: 1750 PATIENT: ROBE RITCHIE UNIT #: [id number]#: [id number] [address]: [birth year] AGE: 77 SEX: M ATTEND: Kristina Hodge AUTHOR: Carlos Alberto Barfield MD * ALL edits or amendments must be made on the electronic/computer document * SubjectiveChief Complaint:Some improvement in breathing with diuresis- seen by cardio and pulmonary Objective Physical ExamVS:Vital SignsDate Temp Pulse Resp B/P B/P Mean Pulse Ox TeT787/-11/01 36.3-36.6 42-53 16-17 108-165/42-71 64.2-100.6 92-97 Last [...] soundsAbdomen: non-tender, normal bowel sounds, softExtremities: pitting edemaNeuro/SCALP TREATMENT SPECIALIST: alert, oriented X 3skin dry, intactPsychiatry: normal [...] % (Auto) (14.0 - 32.0 %) 14.2 [place] % (Auto) (4.8 - 9.0 %) 7.6 Eos % (Auto) (0.3 - 3.7 %) 6.6 H Baso % (Auto) (0.0 - 2.0 %) 0.9 Neut # (Auto) (2.0 - 7.6 x10 3/uL) 3.83 Lymph # (Auto) (1.0 - 3.8 x10 3/uL) 0.77 L [place] # (Auto) (0.1 - 0.8 x10 3/uL) [...] Increased left base atelectasis/infiltrate. Impression By: PearlBJM4 Agus Escalante M.D. Diagnosis, Assessment PlanConsultants: cardiology, nephrology [...] Carlos Alberto Barfield MD at 1753 RPT #:[id number] OF REPORTPRProgress dtwq0119-39-55L17:50:00G.GCGI11498699-1045TSWwexh able for patient vuywAGIPRNXUERWAXT9752-22-90W65:53:34 [facility] 2022-11-01 16:49:00 [id number] tHdVRopkUKOTEjL+V0nuHczQs3DYD QEwYlNART5gFB5GKPfXyewdbeOc9933-26-80T02:49:00 [facility] ([facility])Pulmonology Progress NoteREPORT#:[id number] REPORT STATUS: SignedDATE:11/01/22 TIME: 1649 PATIENT: ROBE RITCHIE UNIT #: [id number]#: [id number] [address] [birth year] AGE: 77 SEX: M ATTEND: [...] .STK-MED ONE 10/31 07 DC IV Rocuronium [place] 0 .STK-MED ONE 10/31 07 DC IV [...] best of my knowledge. at 1650 RPT #:[id number] OF REPORTPRProgress wubw4840-75-81U77:49:00G.TEAM87097064-5427FZGiabh able for patient tfccYGXNGUAXACRIYW0016-94-77I25:50:37 [facility] 2022-11-01 12:16:00 [id number] N530thjJWkjAwccf+1GkIsjqh8ZOi pbkcwqWjhtzW3VvCurKMmgByaEB4876-62-33L22:16:00 [facility] CenterHospitalist Progress NoteREPORT#:[id number] REPORT STATUS: SignedDATE:11/01/22 TIME: 1216 PATIENT: ROBE RITCHIE UNIT #: [id number]#: [id number] [address] [birth year] AGE: 77 SEX: M ATTEND: [...] canceled . 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 he complaint of sob for 2 [...] distentionExtremities: moves all, no calf tenderness, no edemaNeuro/SCALP TREATMENT SPECIALIST: alert, oriented X 3, CNII-XII intact, normal speech, no motor deficits, no sensory deficitsSkin: dry, intact ResultsFindings/Data:Laboratory Tests 11/012 0752 0500 1858 Chemistry Sodium (134 - [...] % (Auto) (14.0 - 32.0 %) 14.2 [place] % (Auto) (4.8 - 9.0 %) 7.6 Eos % (Auto) (0.3 - 3.7 %) 6.6 H Baso % (Auto) (0.0 - 2.0 %) 0.9 Neut # (Auto) (2.0 - 7.6 x10 3/uL) 3.83 Lymph # (Auto) (1.0 - 3.8 x10 3/uL) 0.77 L [place] # (Auto) (0.1 - 0.8 x10 3/uL) [...] .STK-MED ONE 10/31 07 DC IV Rocuronium [place] 0 .STK-MED ONE 10/31 07 DC IV [...] ONE 10/31 642 DC .ROUTE Gabapentin 0 .[facility]-MED ONE 10/31 642 DC .ROUTE Lidocaine HCl 0 .[facility]-MED ONE 10/31 642 DC .ROUTE Acetaminophen 1,000 [...] the best of my knowledge. at 1802 RPT #:[id number] OF REPORTPRProgress pqsj5768-15-59E99:16:00G.CTCR23218268-4234JRKpmiv able for patient zykmGHPHSJQNJHIPQC6752-64-26Q67:07:03 [facility] 2022-11-01 10:59:00 [id number] o7FF11tMhN3LA1WTuNXC4L15gILBJ 8gfZTwpKPVa0Z80fK/eAmNaTlYZ0530-18-29E23:59:00 [facility] ([facility])EP Progress NoteREPORT#:[id number] REPORT STATUS: SignedDATE:11/01/22 TIME: 1058 PATIENT: ROBE RITCHIE UNIT #: [id number]#: [id number] [address] [birth year] AGE: 77 SEX: M ATTEND: Kristina Hodge MDADM AUTHOR: Wade Altman * ALL edits or amendments must be made on the electronic/computer document * Wade Altman 11/01/22 1059:Objective GeneralVS/I OLast Documented: Result Date Time Pulse Ox 92 11/01 0811 B/P 165/68 11/01 810 B/P Mean 100.6 11/01 810 O2 Delivery Room air 11/01 810 Temp 36.6 11/01 810 Pulse 50 11/01 810 Resp 17 11/01 [...] on oxygen, no distressAbdomen: soft, non-tenderExtremities: moves allNeuro/SCALP TREATMENT SPECIALIST: alert, oriented X 3Findings/Data:Laboratory Tests: 11/01 11/01 [...] % (Auto) (14.0 - 32.0 %) 14.2 [place] % (Auto) (4.8 - 9.0 %) 7.6 Eos % (Auto) (0.3 - 3.7 %) 6.6 H Baso % (Auto) (0.0 - 2.0 %) 0.9 Neut # (Auto) (2.0 - 7.6 x10 3/uL) 3.83 Lymph # (Auto) (1.0 - 3.8 x10 3/uL) 0.77 L [place] # (Auto) (0.1 - 0.8 x10 3/uL) [...] Text A P:1. Bradycardia-currently Afib 30s-50s-no AVN-blocking vblw-dusmrqzqcwea-bq indication for PPM at this time-ok to d/c from EP standpoint 2. Afib-s/p aborted attempt for LAAO via WATCHMAN per -s/p [place], [place] thrombus-no AA therapy-AC eliquis 3. CHF-per cardio, LVEF nml Consultants: cardiology, nephrology Aramis Thomas 11/05/22 1309:Attestations Physician AttestationAgree w/findings plan:Patient with symptoms of SOB, fatigued, tiredness for the last weeks. 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 at 0655 at 1312 RPT #:[id number] OF REPORTPRProgress qkto6754-31-40X00:59:00G.XTBU26723922-6981GXJuced able for patient wtciATOFEYZEPYMQFJ4409-82-69G20:56:05 [facility] 2022-11-01 08:12:00 [id number]/Y7h +S4ioLmeFC9Qgwr7lXsoXBWLlVHMM SwzRSkrPyQpKMzNLF5K6wqK3eVE4352-52-19P52:12:00 [facility])Cardiology Progress NoteREPORT#:[id number] REPORT STATUS: SignedDATE:11/01/22 TIME: 811 PATIENT: ROBE RITCHIE UNIT #: [id number]#: [id number] [address] [birth year] AGE: 77 SEX: M ATTEND: [...] Flow FiO2 Mean Ox Delivery Rate 11/01 0811 36.6 50 17 165/68 100.6 [...] urinary catheterLower extremity: LE assessment: edemaMusculoskeletal: normal inspectionNeuro/SCALP TREATMENT SPECIALIST: alert, oriented X 3, normal speechSkin: dry, [...] in indepth with patient. at 1513 at 2338 RPT #:[id number] OF REPORTPRProgress zcxj0918-59-62L86:12:00G.XMDQ87748246-8533WBUulod able for patient xjemXZDYYKNYKBRNVR3089-49-70B15:15:08 [facility] 2022-11-01 07:34:00 [id number]/aW1zD7 VRaqYQ6wqgycqArF+9U9QS5qhqqBJ 77rJWqo3VAmKvWuBYULmEien9fi9826-88-89H05:34:00 [facility] ([facility])Nephrology Progress NoteREPORT#:[id number] REPORT STATUS: SignedDATE:11/01/22 TIME: 07 PATIENT: ROBE RITCHIE UNIT #: [id number]#: [id number] [address] [birth year] AGE: 77 SEX: M ATTEND: Kristina Hodge AUTHOR: Sherly Gomes MD * ALL edits or amendments must be made on the electronic/computer document * SubjectiveChief complaint:For watchman deviceHPI:Patient seen and evaluated, discussed with care team, 77-year-old male with history of diabetes mellitus, hypertension, hyperlipidemia, chronic kidney disease followed by custodial operations manager in [place] and [place] who presented for watchman's [...] pitting edema, non-tenderMusculoskeletal: no CVA tenderness, no tendernessNeuro/SCALP TREATMENT SPECIALIST: alert, normal speechSkin: dry, intact ResultsFindings/Data:Laboratory Tests [...] % (Auto) (14.0 - 32.0 %) 14.6 [place] % (Auto) (4.8 - 9.0 %) 8.2 Eos % (Auto) (0.3 - 3.7 %) 2.8 Baso % (Auto) (0.0 - 2.0 %) 0.9 Neut # (Auto) (2.0 - 7.6 x10 3/uL) 4.21 Lymph # (Auto) (1.0 - 3.8 x10 3/uL) 0.84 L [place] # (Auto) (0.1 - 0.8 x10 3/uL) [...] blood count 5.4Consultants: cardiology, nephrology at 0941 [facility] #:[id number] OF REPORTPRProgress defc3229-46-99O57:34:00G.LYSE74008602-0847WRFcmog able for patient rsolWEQTBGSHTGQPPJ4016-73-80T93:41:47 [facility] 2022-10-31 16:58:00 [id number] 4rmluetczynmnKXwCUEVrlCUJCf3j BwYcg4++eLTDTrUamucOZpsWwrX1223-59-41D08:58:03143 1-[address] [place] [address] PATIENT NAME: ROBE RITCHIE JR ADMIT DATE: 10/31/22ACCOUNT NO: [id number] ROOM NO: 4421 AGE: 77 REPORT TYPE: CONSULTATION REPORT SEX: [...] Irregularly irregular, bradycardic. PATIENT NAME: ROBE RITCHIE JR ABDOMEN: Soft, nontender, nondistended. Bowel sounds positive.EXTREMITIES: [...] MD Date Dictated: 10/31/2022 16:58:17Date Transcribed: 10/31/2022 17:21:47[facility] CITYYadira #: [id number] ID: [id number] by Carlos Alberto Barfield MD On 12/03/2022 06:50:11 PM at 0650 PATIENT NAME: ROBE RITCHIE JR :21:00G.[place] [id number] for patient zbgnPVOMMGRBMAQETM6913-40-87E88:50:44 [facility] 2022-10-31 16:54:00 [id number] aBbvcv1r3exIrN2s+uoZVJdBUaDmP HMhvuwZCajH2XREPT+00pvR+VEJ1101-01-40N64:54:00 [facility] ([facility])Pulmonary Consultation NoteREPORT#:[id number] REPORT STATUS: SignedDATE:10/31/22 TIME: 1653 PATIENT: ROBE RITCHIE UNIT #: [id number]#: [id number] [address] [birth year] AGE: 77 SEX: M ATTEND: [...] Atropine Sulfate 0.5 MG ASDIR PRN 10/31 08 AC (ATROPINE SULFATE IV 11/01 0822 0.1MG/ML SYR) Norepinephrine 0 .STK-MED ONE 10/31 0700 DC Bitartrate IV (LEVOPHED BITARTATE) Rocuronium [place] 0 .STK-MED ONE 10/31 07 DC (ZEMURON) IV Blood Formation,Coagulation Sig/Denice Start time Last Medication Dose Route Stop Time Status Admin Apixaban 2.5 MG BID 10/31 0900 AC (ELIQUIS 2.5MG PO 11/30 0859 TABLET) Heparin Sodium 0 .STK-MED ONE 10/31 0724 DC (HEPARIN SODIUM) .ROUTE Heparin Sodium 0 .STK-MED ONE 10/31 07 DC (HEPARIN SODIUM) .ROUTE Heparin Sodium 0 .STK-MED ONE 10/31 0658 DC 10/31 (HEPARIN SODIUM) .ROUTE 0751 Heparin Sodium/ 2,000 ML .STK-MED ONE 10/31 657 DC 10/31 Sodium Chloride IV 0751 (HEPARIN 2,000 UNITS/ NS 1,000mL) Heparin Sodium/ 500 ML .STK-MED ONE 10/31 0658 DC 10/31 Sodium Chloride IV 0751 (HEPARIN 1,000 UNITS/ NS 500ML) Cardiovascular Drugs Sig/Denice Start time Last Medication Dose Route Stop Time Status Admin Atorvastatin Calcium 40 MG BEDTIME 10/31 2100 AC (LIPITOR) PO 11/30 2058 Lidocaine HCl 0 .STK-MED ONE 10/31 06 DC (XYLOCAINE) .ROUTE Lidocaine HCl 2 ML PREOP ONCALL 10/29 1145 DC (LIDOCAINE HCL/PF) LOCAL 11/28 2358 Lidocaine HCl 2 ML PREOP ONCALL 10/29 1145 DC (LIDOCAINE HCL/PF) LOCAL 11/28 235 Central Nervous System Agents Sig/Denice Start time Last Medication Dose Route Stop Time Status Admin Aspirin 81 MG BEDTIME 10/31 2100 AC (ASPIRIN) PO 11/30 2058 Gabapentin 300 MG BEDTIME 10/31 2100 AC (NEURONTIN) PO 11/30 2058 Carbidopa/Levodopa 2 TAB TID 10/31 1500 AC 10/31 (SINEMET-25 100) PO 11/30 1459 1542 Pramipexole 0.25 MG TID 10/31 1500 AC 10/31 Dihydrochloride PO 11/30 1459 1543 (MIRAPEX) Propofol 20 ML .STK-MED ONE 10/31 07 DC (DIPRIVAN 200MG/20ML IV INJECTION) Acetaminophen 0 [...] 10/29 1145 DC (LACTATED RINGERS) IV 11/28 235 Sodium Chloride 500 ML PREOP ONCALL 10/29 1145 DC (SODIUM CHLORIDE IV 11/28 235 0.9%) Sodium Chloride 500 ML PREOP ONCALL 10/29 1145 DC (SODIUM CHLORIDE IV 11/28 235 0.9%) Sodium Chloride 1,000 ML PREOP ONCALL 10/29 1145 DC (SODIUM CHLORIDE IV 11/28 235 0.9%) Sodium Chloride 5 ML ASDIR PRN [...] 2 10/31 1449 Pulse Ox 100 10/31 0700 B/P 133/64 10/31 07 Temp 36.3 10/31 0700 Pulse 58 10/31 0700 Resp 20 10/31 07 ResultsResults: x-ray personally reviewed Free Text Obj [...] you for the consult at 1657 RPT #:[id number] OF REPORTBANlgkhwpmnhve2886-89-27S47:54:00G.PDOC2 [id number] for patient yypkILVJQVVBNUYDNL9874-51-14S50:57:30 [facility] 2022-10-31 13:24:00 [id number] 1hMPdmCCF1kN82BaiKcmrXNDfKU6G 2y7rOexFEl3azgj1wodxG/n7khd1148-75-69L53:24:00 [facility])Cardiology ConsultationREPORT#:[id number] REPORT STATUS: SignedDATE:10/31/22 TIME: 1324 PATIENT: ROBE RITCHIE UNIT #: [id number]#: [id number] [address] AGE: 77 SEX: M ATTEND: Kristina Hodge MDA AUTHOR: Cynthia Silver * ALL edits or [...] bilateral lower extremity, appear short of breath. color television console monitor showed slow atrial fibrillation down in the [...] 20 ML .STK-MED ONE IV (DC) Rocuronium [place] (ZEMURON) 0 .STK-MED ONE IV (DC) Heparin [...] urinary catheterLower extremity: LE assessment: edemaMusculoskeletal: normal inspectionNeuro/SCALP TREATMENT SPECIALIST: alert, oriented X 3, normal speechSkin: dry, some erythema of BLEPsychiatry: normal affect, normal mood ResultsFindings/Data:Laboratory Tests 10/31 10/31 0852 0632 Chemistry POC Glucose (70 - 110 MG/DL) 114 H 123 H Results: labs reviewed, vital signs reviewed, rhythm personally rev'dTelemetry Interpretation:slow atrial fibrillation Scores [id number] XcibkUQF5CS2-PMVq Score ZWX4WU6-EPWj Score Response Value CHF: Yes 1 HTN: Yes 1 age greater than 75 years: Yes 2 diabetes mellitus: Yes 1 Total 5 WSG-GHRW-RoikcHMX-BLED Score HAS-BLED Score Response Value uncontrolled HTN-SBP>160 [...] normalcould be 2/2 volume overloadPulmo consulted to eval for PNA Appreciate the referral. at 1556 at 2338 RPT #:[id number] OF REPORTHVLlsqeqwutcsi3709-50-69S79:24:00G.PDOC2 [id number] for patient mmjrZKDENSKYURERLE9959-52-21K18:56:47 [facility] 2022-10-31 11:38:00 [id number] tT8GR5zj/9bo5JlazfFQJEbtt2y1r jiVT3Fd0ukwAJ3vmt6J6Dg0vEt61584-37-09R57:38:00 [facility] ([facility])EP Progress NoteREPORT#:[id number] REPORT STATUS: SignedDATE:10/31/22 TIME: 1138 PATIENT: ROBE RITCHIE UNIT #: [id number]#: [id number] [address] AGE: 77 SEX: M ATTEND: Kristina Hodge MDADM AUTHOR: Wade Altman STAFF FORESTER * ALL edits or amendments must be made on the electronic/computer document * See AddendumWade Altman 10/31/22 1138:Objective GeneralVS/I OLast Documented: Result Date Time O2 Delivery Nasal cannula 10/31 0840 O2 Flow Rate 2 10/31 0840 Pulse Ox 100 01/11 0700 B/P 133/64 01/11 0700 Temp 36.3 10/31 699 Pulse 58 10/31 [...] 20 ML .STK-MED ONE IV (DC) Rocuronium [place] (ZEMURON) 0 .STK-MED ONE IV (DC) Heparin [...] on oxygen, no distressAbdomen: soft, non-tenderExtremities: moves allNeuro/SCALP TREATMENT SPECIALIST: alert, oriented X 3Findings/Data:Laboratory Tests: 10/31 10/31 0852 0632 Chemistry POC Glucose (70 - 110 MG/DL) 114 H 123 H Diagnosis, Assessment PlanFree Text A P:1. Afib-currently 40s-60s-s/p aborted attempt for LAAO via WATCHMAN per -s/p [place], [place] thrombus identified-AC eliquis at 1349 at 1312 at 1423 Addendum 1: 11/05/22 1615 by Aramis Thomas MD at 1616 Addendum 2: 11/07/22 2148 by Aramis Thomas MD at 2149 RPT #:[id number] OF REPORTPRProgress [id number]:38:00G.[id number] able for patient klttUBZOSDITYFDAQT5496-26-88V14:49:46 [facility] 2022-10-31 09:33:00 [id number] [id number] pxIJzQIVs/VB31TpIcwYiz7Wqo79839-45-96K85:33:00 [facility] ([facility])Nephrology Consultation NoteREPORT#:[id number] REPORT STATUS: SignedDATE:10/31/22 TIME: 932 PATIENT: ROBE RITCHIE UNIT #: [id number]#: [id number] [address] AGE: 77 SEX: M ATTEND: Kristina Hodge MDA AUTHOR: Sherly Gomes MD * ALL edits or amendments must be made on the electronic/computer document * History of Present IllnessRequesting clinician: Yasmani Hodge for consult:Elevated creatinineChief complaint:For watchman deviceHPI:Patient seen and evaluated, discussed with care team, 77-year-old male with history of diabetes mellitus, hypertension, hyperlipidemia, chronic kidney disease followed by custodial operations manager in [place] and [place] who presented for watchman's [...] BEDTIME 08/25/13 10/31/22Strength: 2 MG TAB 0930 06 ASPIRIN 81 MG PO BEDTIME 08/25/13 10/31/22Strength: 81 MG TAB.CHEW 0935 06 Dapagliflozin Propanediol 5 MG PO DAILY 10/29/22 [...] 0657[BALANCE FRUIT] 3 TAB PO DAILY 10/29/22 10/31/22Strengt: 1127 0657[BALANCE VEGGIES] 3 TAB PO DAILY [...] Admin Vancomycin HCl 0 .STK-MED ONE 10/31 07 DC 10/31 (VANCOMYCIN HCL) .ROUTE 075 Autonomic Drugs Sig/Denice Start time Last Medication Dose Route Stop Time Status Admin Atropine Sulfate 0.5 MG ASDIR PRN 10/31 829 AC (ATROPINE SULFATE IV 11/01 0822 0.1MG/ML SYR) Norepinephrine 0 .STK-MED ONE 10/31 699 DC Bitartrate IV (LEVOPHED BITARTATE) Rocuronium [place] 0 .STK-MED ONE 10/31 699 DC (ZEMURON) IV Blood Formation,Coagulation Sig/Denice Start time Last Medication Dose Route Stop Time Status Admin Apixaban 2.5 MG BID 10/31 09 AC (ELIQUIS 2.5MG PO 11/30 0859 TABLET) Heparin Sodium 0 .STK-MED ONE 10/31 07 DC (HEPARIN SODIUM) .ROUTE Heparin Sodium 0 .STK-MED ONE 10/31 699 DC (HEPARIN SODIUM) .ROUTE Heparin Sodium 0 .STK-MED ONE 10/31 657 DC 10/31 (HEPARIN SODIUM) .ROUTE 075 Heparin [...] IV INJECTION) Acetaminophen 0 .STK-MED ONE 10/31 642 DC (TYLENOL EXTRA .ROUTE STRENGTH) Gabapentin 0 .STK-MED ONE 10/31 642 DC (NEURONTIN) .ROUTE Acetaminophen 1,000 MG PREOP ONCALL 10/29 1145 CKD (TYLENOL EXTRA PO 11/28 2358 STRENGTH) Electrolytic, Caloric, And Myranda Sig/Denice Start time Last Medication Dose Route Stop Time Status Admin Sodium Chloride 500 ML ASDIR PRN 10/31 0830 AC (SODIUM CHLORIDE IV 11/01 08 0.9%) Sodium Chloride 250 ML .STK-MED ONE 10/31 0703 DC (SODIUM CHLORIDE IV 0.9%) Lactated Ringer's 1,000 ML PREOP ONCALL 10/29 1145 AC (LACTATED RINGERS) IV 11/28 2358 Sodium Chloride 500 ML PREOP ONCALL 10/29 1145 AC (SODIUM CHLORIDE IV 11/28 2358 0.9%) Sodium Chloride 500 ML PREOP ONCALL 10/29 1145 AC (SODIUM CHLORIDE IV 11/28 2358 0.9%) Sodium Chloride 1,000 ML PREOP ONCALL 10/29 1145 AC (SODIUM CHLORIDE IV 11/28 2358 0.9%) Sodium Chloride 5 ML ASDIR PRN 10/29 1145 AC (SODIUM CHLORIDE) IV 11/28 114 Sodium Chloride 10 ML ASDIR PRN 10/29 1145 AC (SODIUM CHLORIDE) IV 11/28 114 Sodium Chloride 250 ML ASDIR PRN 10/29 [...] 20 ML .STK-MED ONE IV (DC) Rocuronium [place] (ZEMURON) 0 .STK-MED ONE IV (DC) Heparin [...] pitting edema, non-tenderMusculoskeletal: no CVA tenderness, no tendernessNeuro/SCALP TREATMENT SPECIALIST: alert, normal speechSkin: dry, intact ResultsFindings/Data:Laboratory Tests [...] % (Auto) (14.0 - 32.0 %) 14.6 [place] % (Auto) (4.8 - 9.0 %) 8.2 Eos % (Auto) (0.3 - 3.7 %) 2.8 Baso % (Auto) (0.0 - 2.0 %) 0.9 Neut # (Auto) (2.0 - 7.6 x10 3/uL) 4.21 Lymph # (Auto) (1.0 - 3.8 x10 3/uL) 0.84 L [place] # (Auto) (0.1 - 0.8 x10 3/uL) [...] every 8 hours x3 doses. at 0942 [facility] #:[id number] OF REPORTZYGhsdhdrxzgit5957-61-99F69:33:00G.PDOC2 [id number] for patient jryhEWOZTJWGJUCCBA9039-47-00V02:42:18 [facility] 2022-10-31 09:18:00 [id number] nPWCBouhDccQfh5SwPoFyuII+FfkX B[id number]:18:00 [facility]ospital[facility] History PhysicalREPORT#:[id number] REPORT STATUS: SignedDATE:10/31/22 TIME: 917 PATIENT: ROBE RITCHIE UNIT #: [id number]#: [id number] [address] AGE: 77 SEX: M ATTEND: [...] canceled . 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 he complaint of sob for 2 [...] 2 10/31 704 Pulse Ox 100 10/31 0600 B/P 133/64 10/31 699 Temp 36.3 10/31 699 Pulse 58 10/31 0700 Resp 20 10/31 699 Patient Weight and BMI Weight (kg): 104.900 BMI: 35.2 General appearance: alert, awake, oriented, no acute distressHead/Eyes: atraumatic, normal conjunctiva/sclera, normal eyelids/periorb., normocephalicNeck: full range of motion, non-tender, no JVDCardiovascular: bradycardic, normal heart soundsRespiratory: aerating well, clear to auscultationAbdomen: non-tender, normal bowel sounds, soft, no distentionExtremities: moves all, no calf tenderness, no edemaNeuro/SCALP TREATMENT SPECIALIST: alert, oriented X 3, CNII-XII intact, normal [...] % (Auto) (14.0 - 32.0 %) 14.6 [place] % (Auto) (4.8 - 9.0 %) 8.2 Eos % (Auto) (0.3 - 3.7 %) 2.8 Baso % (Auto) (0.0 - 2.0 %) 0.9 Neut # (Auto) (2.0 - 7.6 x10 3/uL) 4.21 Lymph # (Auto) (1.0 - 3.8 x10 3/uL) 0.84 L [place] # (Auto) (0.1 - 0.8 x10 3/uL) [...] x10 3/uL) 0.00 Laboratory Tests: 10/31 10/31 6493 0844 Chemistry POC Glucose (70 - 110 MG/DL) [...] nephrology consult Consultants: cardiology, nephrology Quality: Gen Med Crit Care Current MedicationsCurrent [...] 0751 Heparin Sodium 0 .STK-MED ONE 10/31 0624 DC .ROUTE Sugammadex Sodium 0 .STK-MED ONE 10/31 0615 DC IV Sodium Chloride 250 ML .STK-MED ONE 10/31 702 DC IV Heparin Sodium 0 .STK-MED ONE 10/31 699 DC .ROUTE Norepinephrine 0 .STK-MED ONE 10/31 699 DC Bitartrate IV Propofol 20 ML .STK-MED ONE 10/31 699 DC IV Rocuronium [place] 0 .STK-MED ONE 10/31 699 DC IV [...] the best of my knowledge. at 1655 [facility] #:[id number] OF REPORTHPHistory and physical [id number]:18:00G.[id number] AVAvailable for patient fuzxBYYNAWIZVOMBSO3946-03-80Z27:55:39 [facility] 2022-10-29 11:18:00 [id number]+Qy/GY6vL APh/[id number]:18:97039 9-[address] [address] PATIENT NAME: ROBE RITCHIE JR ADMIT DATE: ACCOUNT NO: [id number] ROOM NO: AGE: 77 REPORT TYPE: eELECTROCARDIOGRAM REPORT SEX: M ADMITTING PHYSICIAN:Raoul Dailey MD ATTENDING PHYSICIAN:Raoul Dailey MD Order:[id number] Reason : PAT Test Date/Time Stamp:SatOct 29 2022 11:18:18Blood Pressure : / mmHGVent. Rate : 054 BPM Atrial Rate : 015 BPM P-R Int : 000 ms QRS Dur : 086 ms QT Int : 446 ms P-R-T Axes : 000 -44 087 degrees QTc Int : 422 ms Atrial fibrillation with slow ventricular responseLeft axis deviationNonspecific T wave abnormalityAbnormal ECGPRE_OPConfirmed by OPAL CERVANTES MD ([id number]) on 10/29/2022 12:06:18 PM Referred By: Raoul Dailey Confirmed by:OPAL CERVANTES MD at 1206 PATIENT NAME: ROBE RITCHIE .[id number] AVAvailable for patient [id number]:06:47 [facility]
[2024-04-11 15:58] LABS: Absolute Eosinophils 0.2 K/uL (0-0.5); Absolute Lymphocytes (CBC) 1.3 K/uL (0.7-4.9); Absolute Monocytes 0.5 K/uL (0.1-1.3); Absolute Neutrophil 5.3 K/uL (1.8-8.0); Basophils % 0.6 % (0-1.3); Eosinophils % 2.6 % (0-4.4); Hematocrit 38.3 % (39.6-49.0); Hemoglobin 12.4 g/dL (13.6-17.9); Lymphocytes % 17.5 % (15.3-44.8); MCH 24.7 pg (27.0-35.0); MCHC 32.3 g/dL (32.0-36.0); MCV 76.5 fL (80-100); MPV 8.2 fL (7.6-11.3); Monocytes % 6.5 % (3.3-12.3); Neutrophils % 72.8 % (41.7-73.7); Nucleated Red Blood Cells % 0.1 % (0-0); Platelets 172 thou/uL (152-406); RBC Red Blood Cell Count 5.01 M/uL (4.33-5.43); Red Cell Distribution Width 19.8 % (12.1-15.2)
[2024-04-11 16:01] LABS: PT Prothrombin Time 11.3 SECONDS (9.4-12.5); Protime INR 1.03
[2024-04-11 16:09] LABS: AST/SGOT 17 U/L (15-37); Albumin 3.5 g/dL (3.4-5.0); Albumin/Globulin Ratio 1.2 (1.1-1.8); Alkaline Phosphatase 219 U/L (45-117); Anion Gap 11.1 mEq/L (5.0-15.0); BUN Blood Urea Nitrogen 64 mg/dL (7-18); Bicarbonate 24 mEq/L (21-32); Bilirubin Direct 0.3 mg/dL (0-0.2); Bilirubin Indirect, Calculated 0.5 mg/dL (0.2-0.8); Bilirubin Total 0.8 mg/dL (0.2-1.0); Globulin 2.9 g/dL (2.3-3.5); Glomerular Filtration Rate 19 ml/min (=/>90); Glucose Level 217 mg/dL (74-106); Magnesium 2.5 mg/dL (1.6-2.4); NT PRO-BNP 2452 pg/mL (<450); Protein, Total 6.4 g/dL (6.4-8.2); Sodium Level 131 mEq/L (136-145)
[2024-04-11 16:19] LABS: ALT/SGPT < 14 U/L (16-61)
[2024-04-11 16:20] LABS: Potassium 6.1 mEq/L (3.5-5.1)
[2024-04-11] MEDS: HUMALOG MIX 75/25 100 UNITS/ML SQ SCH (17:00)
--- NOTE | 2024-04-11 17:02 | RAD REPORT ---
EXAM DESCRIPTION: RADChest Single View04/11/2024 4:18 pm CLINICAL HISTORY: hypotension COMPARISON: Chest Single View dated 03/12/2024; Chest Single View dated 02/29/2024; Chest Single View dated 10/02/2023; Chest Single View dated 09/30/2023 TECHNIQUE: Portable AP view of the chest. FINDINGS: The lungs are clear. Sequelae of CABG. Left pacer is clear No pneumothorax or effusion. T he cardiomediastinal contours are unremarkable. IMPRESSION: No acute cardiopulmonary process.
--- NOTE | 2024-04-11 18:10 | ER ---
Nurse's Notes [facility] Name: Spenser Swartz Jr Age: 79 yrs Sex: Male : 1945 Arrival Date: 04/11/2024 Time: 15:10 Bed 3 Private MD: Diagnosis: Hypotension;Generalized weakness;Hypokalemia;Acute kidney injury Presentation: 04/11 15:25 Chief complaint: EMS states: Pt could not stand up starting today and had began to le1 experience low blood pressures 2-3 days ago. Pt homehealth informed patient to stop taking bp medication but did not help. Coronavirus screen: Vaccine status: Patient reports receiving the 1st dose of the Covid vaccine. Ebola Screen: Patient negative for fever greater than or equal to 101.5 degrees Fahrenheit, and additional compatible Ebola Virus Disease symptoms. Initial Sepsis Screen: Does the patient meet any 2 criteria? No. Patient's initial sepsis screen is negative. Does the patient have a suspected source of infection? No. Patient's initial sepsis screen is negative. Risk Assessment: Do you want to hurt yourself or someone else? Patient reports no desire to harm self or others. Onset of symptoms was April 08, 2024. 15:25 Method Of Arrival: EMS: [facility] le1 15:25 Acuity: AMA 3 le1 15:25 Care prior to arrival: Medication(s) given: Normal saline infusion, 1000 mL, IV le1 initiated. 18 GA, in the left antecubital area. Triage Assessment: 15:29 General: Appears in no apparent distress. comfortable, Behavior is calm, cooperative, le1 drowsy. Pain: Denies pain. Neuro: No deficits noted. Miles Agitation-Sedation Scale (RASS): -1 Drowsy. Cardiovascular: Reports shortness of breath, since 04/08/2024 Rhythm is ventricular pacer. Respiratory: Reports shortness of breath at rest. GI: No deficits noted. : No deficits noted. Historical: - Allergies: 15:44 Codeine; le1 15:44 PENICILLINS; le1 - PMHx: 15:44 Atrial Fib; Diabetes - NIDDM; Hypertension; Parkinson's disease; le1 - PSHx: 15:44 achilles tendon SX; L shoulder rotator cuff; triple bypass; le1 - Immunization history:: Adult Immunizations up to date, Client reports receiving the 1st dose of the Covid vaccine. - Infectious Disease History:: Denies. - Family history:: not pertinent. - Social history:: Smoking status: Patient denies any tobacco usage or history of. Screenin:32 [facility] ED Fall Risk Assessment (Adult) History of falling in the last 3 months, le1 including since admission Yes- single mechanical fall (1 pt) Confusion or Disorientation No (0 pts) Intoxicated or Sedated Impaired Gait No (0 pts) Mobility Assist Device Used No (0 pt) Altered Elimination No (0 pt) Score/Fall Risk Level 0 - 2 = Low Risk Oriented to surroundings, Maintained a safe environment, Educated pt \T\ family on fall prevention, incl call for assistance when getting out of bed, Assessed \T\ reinforced patient's understanding of fall precautions, Hourly rounding (assess needs \T\ fall precautionary measures) done. Abuse screen: Denies threats or abuse. Nutritional screening: No deficits noted. Tuberculosis screening: No symptoms or risk factors identified. Assessment: 15:32 Reassessment: Refer to triage assessment. le1 Vital Signs: 15:25 BP 116 / 68 RA Supine (auto/reg); Pulse 70 MON; Resp 18; Temp 97.6(O); Pulse Ox 100% on le1 R/A; 15:31 BP 116 / 68 RA Supine (auto/reg); Pulse 70 MON; Resp 18 S; Temp 98.6(O); Pulse Ox 100% le1 on R/A; 18:55 BP 126 / 61 LA Supine (auto/reg); Pulse 71 MON; Resp 19 S; Pulse Ox 100% on R/A; le1 15:25 Paced le1 ED Course: 15:19 Patient arrived in ED. mb9 15:19 Arm band placed on. mb9 15:20 EKG done, by ED staff, reviewed by Dom Toscano MD. Maintain EMS IV. Dressing mb9 intact. Good blood return noted. Site clean \T\ dry. Gauge \T\ site: 18g left AC. 15:22 Dom Toscano MD is Attending Physician. rt 15:25 Klaus Deng RN is Primary Nurse. le1 15:25 First set of blood cultures drawn by ak. mb9 15:29 Triage completed. le1 15:32 Patient has correct armband on for positive identification. Placed in gown. Bed in low le1 position. Call light in reach. Side rails up X 1. Adult w/ patient. Provided Education on: Press call button to get help from Nurse. 15:32 Second set of blood cultures drawn by me. mb9 15:37 Initial lab(s) drawn, by me, sent to lab. Inserted saline lock: 20 gauge in right mb9 forearm, using aseptic technique. Blood collected. 15:37 No provider procedures requiring assistance completed. mb9 16:20 XRAY Chest (1 view) In Process Unspecified. EDMS 16:20 Notified ED physician of a critical lab result(s). K 6.1. le1 16:25 Patient requests liquids. mb9 16:36 Blood Culture Adult (2) Sent. le1 18:09 Celestino Le MD is Hospitalizing Provider. rt 19:33 Repositioned patient. Cleaned of incontinence. Linen changed. mb9 20:02 Patient admitted, IV remains in place. mb9 Administered Medications: 18:40 Drug: NS 0.9% IV 1000 ml IV at 1 bolus Per protocol; 1000 mL bolus Route: IV; Rate: 1 le1 bolus; Site: right forearm; 18:40 Drug: Calcium Gluconate IVPB 1 grams IVPB once over 60 mins; (mix in NS 100 mL) Route: le1 IVPB; Infused Over: 60 mins; Site: right forearm; 18:40 Drug: Insulin Regular Human IVP 10 units IVP once {Co-Signature: jose (Karrie Luna RN).} Route: IVP; Site: left antecubital; 18:49 Follow up: Response: No adverse reaction le1 18:40 Drug: D10 in Water IVP 250 ml IVP once Route: IVP; Site: left antecubital; le1 18:49 Drug: Kayexalate PO 45 grams PO once Route: PO; le1 Medication: 15:34 VIS not applicable for this client. le1 Outcome: 18:10 Decision to Hospitalize by Provider. rt 20:03 Admitted to Med/surg accompanied by tech, via wheelchair, jose 20:03 Condition: stable 20:03 Instructed on the need for admit, 20:03 Patient left the ED. jose Signatures: Dispatcher [employer] EDMS Karrie Luna RN RN mb9 Dom Toscano MD MD rt Klaus Deng RN RN le1 Karrie Luna RN mb9 Corrections: (The following items were deleted from the chart) 15:20 15:20 PSHx: achilles tendon SX; 9 mb9 15:50 15:20 Allergies: Codeine; mb9 le1 15:50 15:20 Allergies: PENICILLINS; mb9 le1 15:50 15:20 PMHx: Atrial Fib; mb9 le1 15:50 15:20 PMHx: Diabetes - NIDDM; mb9 le1 15:50 15:20 PMHx: Hypertension; mb9 le1 15:50 15:20 PMHx: Parkinson's disease; mb9 le1 15:50 15:20 PSHx: achilles tendon SX; mb9 le1 15:50 15:20 PSHx: L shoulder rotator cuff; mb9 le1 15:50 15:20 PSHx: triple bypass; mb9 le1
--- NOTE | 2024-04-11 18:10 | EDPHYS ---
Physician Documentation [facility] Name: Spenser Swartz Jr Age: 79 yrs Sex: Male : 1945 Arrival Date: 04/11/2024 Time: 15:10 Bed 3 Private MD: ED Physician Dom Toscano HPI: 04/11 16:13 This 79 yrs old Male presents to ER via EMS with complaints of weakness. rt 16:13 Patient presents to the ED with dizziness, described as lightheadedness as well as rt generalized weakness for 2 to 3 days. Patient noted that his blood pressure was low, as low as 70 systolic at home. Home health told the patient to stop taking his blood pressure medications. Patient states that the symptoms continued till today, states that his blood pressure, symptoms have improved upon arrival to the ED. Denies other acute complaints, symptoms are moderate in severity, no other aggravating or alleviating factors.. Historical: - Allergies: 15:44 Codeine; le1 15:44 PENICILLINS; le1 - PMHx: 15:44 Atrial Fib; Diabetes - NIDDM; Hypertension; Parkinson's disease; le1 - PSHx: 15:44 achilles tendon SX; L shoulder rotator cuff; triple bypass; le1 - Immunization history:: Adult Immunizations up to date, Client reports receiving the 1st dose of the Covid vaccine. - Infectious Disease History:: Denies. - Family history:: not pertinent. - Social history:: Smoking status: Patient denies any tobacco usage or history of. ROS: 16:13 Constitutional: Negative for fever, chills, and weight loss, Cardiovascular: Negative rt for chest pain, palpitations, and edema, Respiratory: Negative for shortness of breath, cough, wheezing, and pleuritic chest pain, Abdomen/GI: Negative for abdominal pain, nausea, vomiting, diarrhea, and constipation, MS/Extremity: Negative for injury and deformity, Skin: Negative for injury, rash, and discoloration, 16:13 Neuro: Positive for near syncope, weakness, Exam: 16:13 Constitutional: This is a well developed, well nourished patient who is awake, alert, rt and in no acute distress. Head/Face: Normocephalic, atraumatic. Chest/axilla: Normal chest wall appearance and motion. Nontender with no deformity. No lesions are appreciated. Cardiovascular: Regular rate and rhythm with a normal S1 and S2. No gallops, murmurs, or rubs. Normal PMI, no JVD. No pulse deficits. Respiratory: Lungs have equal breath sounds bilaterally, clear to auscultation and percussion. No rales, rhonchi or wheezes noted. No increased work of breathing, no retractions or nasal flaring. Abdomen/GI: Soft, non-tender, with normal bowel sounds. No distension or tympany. No guarding or rebound. No evidence of tenderness throughout. Neuro: Awake and alert, GCS 15, oriented to person, place, time, and situation. Cranial nerves II-XII grossly intact. Motor strength 5/5 in all extremities. Sensory grossly intact. Cerebellar exam normal. Normal gait. 16:13 ECG was reviewed by the Attending Physician. Vital Signs: 15:25 BP 116 / 68 RA Supine (auto/reg); Pulse 70 MON; Resp 18; Temp 97.6(O); Pulse Ox 100% on le1 R/A; 15:31 BP 116 / 68 RA Supine (auto/reg); Pulse 70 MON; Resp 18 S; Temp 98.6(O); Pulse Ox 100% le1 on R/A; 18:55 BP 126 / 61 LA Supine (auto/reg); Pulse 71 MON; Resp 19 S; Pulse Ox 100% on R/A; le1 15:25 Paced le1 MDM: 15:22 Patient medically screened. rt 18:10 Differential Diagnosis Electrolyte disturbance, dehydration, . Data reviewed: vital rt signs, nurses notes. Consideration of Admission/Observation Patient was admitted/placed on observation. Management of patient was discussed with the following: Hospitalist: Agrees to admit. I considered the following discharge prescriptions or medication management in the emergency department Medications were administered in the Emergency Department. See MAR. Independent interpretation of the following test(s) in the Emergency Department X-Ray: My interpretation is No pneumonia seen on interpretation of x-ray images. Care significantly affected by the following chronic conditions: Hypertension. Counseling: I had a detailed discussion with the patient and/or guardian regarding the historical points, exam findings, and any diagnostic results supporting the discharge/admit diagnosis, lab results, radiology results, the need for further work-up and treatment in the hospital. Response to treatment: the patient's symptoms have markedly improved after treatment. 04/11 15:23 Order name: Basic Metabolic Panel; Complete Time: 16:22 rt 04/11 15:23 Order name: CBC with Diff; Complete Time: 16:22 rt 04/11 15:23 Order name: LFT's; Complete Time: 16:22 rt 04/11 15:23 Order name: Magnesium; Complete Time: 16:22 rt 04/11 15:23 Order name: NT PRO-BNP; Complete Time: 16: rt 04/11 15:23 Order name: Troponin HS; Complete Time: 16: rt 04/11 15:23 Order name: Blood Culture Adult (2) rt 04/11 15:23 Order name: Lactate w/ 2H reflex if indic.; Complete Time: 16: rt 04/11 15:23 Order name: Protime (+inr); Complete Time: 16:22 rt 04/11 15:23 Order name: Ptt, Activated; Complete Time: 16:23 rt 04/11 15:52 Order name: Glucose, Ancillary Testing; Complete Time: 16:22 EDMS 04/11 18:22 Order name: Glucose, Ancillary Testing; Complete Time: 18:22 EDMS 04/11 18:37 Order name: CBC with Automated Diff EDMS 04/11 18:37 Order name: CBC with Automated Diff EDMS 04/11 18:37 Order name: Comprehensive Metabolic Panel EDMS 04/11 18:37 Order name: Comprehensive Metabolic Panel EDMS 04/11 18:42 Order name: Urinalysis w/ reflexes EDMS 04/11 18:43 Order name: Basic Metabolic Panel EDMS 04/11 15:23 Order name: XRAY Chest (1 view); Complete Time: 17:08 rt 04/11 18:42 Order name: Renal Ultrasound-Complete EDMS 04/11 15:23 Order name: EKG; Complete Time: 15:23 rt 04/11 18:37 Order name: CONS Physician Consult EDMS 04/11 15:23 Order name: Cardiac monitoring; Complete Time: 15:35 rt 04/11 15:23 Order name: EKG - Nurse/Tech; Complete Time: 15:35 rt 04/11 15:23 Order name: IV Saline Lock; Complete Time: 15:35 rt 04/11 15:23 Order name: Labs collected and sent; Complete Time: 15:35 rt 04/11 15:23 Order name: O2 Per Protocol; Complete Time: 15:35 rt 04/11 15:23 Order name: O2 Sat Monitoring; Complete Time: 15:35 rt 04/11 15:23 Order name: Accucheck; Complete Time: 15:37 rt 04/11 15:23 Order name: IV Saline Lock - Large Bore; Complete Time: 15:35 rt 04/11 15:23 Order name: Vital Signs; Complete Time: 15:35 rt EC:13 Rate is 70 beats/min. Rhythm is regular, Paced with No ectopy, ST, T waves, conduction rt consistent with ventricularly paced rhythm. QT interval is normal. No Q waves. Administered Medications: 18:40 Drug: NS 0.9% IV 1000 ml IV at 1 bolus Per protocol; 1000 mL bolus Route: IV; Rate: 1 le1 bolus; Site: right forearm; 18:40 Drug: Calcium Gluconate IVPB 1 grams IVPB once over 60 mins; (mix in NS 100 mL) Route: le1 IVPB; Infused Over: 60 mins; Site: right forearm; 18:40 Drug: Insulin Regular Human IVP 10 units IVP once {Co-Signature: jose (Karrie Luna RN).} Route: IVP; Site: left antecubital; 18:49 Follow up: Response: No adverse reaction le1 18:40 Drug: D10 in Water IVP 250 ml IVP once Route: IVP; Site: left antecubital; le1 18:49 Drug: Kayexalate PO 45 grams PO once Route: PO; le1 Disposition Summary: 04/11/24 18:10 Hospitalization Ordered Notes: Hospitalization Status: Inpatient Admission rt Provider: Celestino Le rt Location: Telemetry/MedSurg (Inpatient) rt Condition: Fair rt Problem: new rt Symptoms: have improved rt Bed/Room Type: Standard rt Room Assignment: 405(04/11/24 18:40) bc6 Diagnosis - Hypotension rt - Generalized weakness rt - Hypokalemia rt - Acute kidney injury rt Forms: - Medication Reconciliation Form rt - SBAR form rt - Leadership Thank You Letter rt Critical care time excluding procedures: 18:11 Critical care time: Bedside Care: 30 minutes, Consultation: 5 minutes. Total time: 35 rt minutes Signatures: Dispatcher [employer] EDMS Karrie Luna, RN RN mb9 Dom Toscano MD MD rt Nadira Hyde 6 Klaus Deng RN RN le1 Karrie Luna RN mb9 Corrections: (The following items were deleted from the chart) 15:20 15:20 PSHx: achilles tendon SX; mb9 mb9 15:23 15:23 BASIC METABOLIC PANEL+C.LAB.BRZ ordered. EDMS EDMS 15:23 15:23 CBC+H.LAB.BRZ ordered. EDMS EDMS 15:23 15:23 HEPATIC FUNCTION+C.LAB.BRZ ordered. EDMS EDMS 15:23 15:23 MAGNESIUM+C.LAB.BRZ ordered. EDMS EDMS 15:23 15:23 PROBNP+C.LAB.BRZ ordered. EDMS EDMS 15:23 15:23 Troponin High Sensitivity+C.LAB.BRZ ordered. EDMS EDMS 15:23 15:23 BLOOD CULTURE*+BA.LAB.BRZ ordered. EDMS EDMS 15:23 15:23 LACTATE+C.LAB.BRZ ordered. EDMS EDMS 15:23 15:23 PROTIME (+INR)+COAG.LAB.BRZ ordered. EDMS EDMS 15:23 15:23 PTT, ACTIVATED+COAG.LAB.BRZ ordered. EDMS EDMS 15:50 15:20 Allergies: Codeine; mb9 le1 15:50 15:20 Allergies: PENICILLINS; mb9 le1 15:50 15:20 PMHx: Atrial Fib; mb9 le1 15:50 15:20 PMHx: Diabetes - NIDDM; mb9 le1 15:50 15:20 PMHx: Hypertension; mb9 le1 15:50 15:20 PMHx: Parkinson's disease; mb9 le1 15:50 15:20 PSHx: achilles tendon SX; mb9 le1 15:50 15:20 PSHx: L shoulder rotator cuff; mb9 le1 15:50 15:20 PSHx: triple bypass; mb9 le1 18:40 18:10 rt bc6
[2024-04-11] MEDS ORDERED: INSULIN REGULAR (HUMAN) 100 UNIT/ML ONE (18:12)
[2024-04-11] MEDS ORDERED: NA CHLORIDE 0.9% 100 ML ONE (18:15)
[2024-04-11] MEDS ORDERED: NA CHLORIDE 0.9% 1,000 ML ONE (18:15)
[2024-04-11] MEDS ORDERED: SOD POLYSTYREN SUL 15 GM/60 ML UCUP ONE (18:15)
[2024-04-11] MEDS ORDERED: CALCIUM GLUCONATE 1 GM IVPB 1 GM/50 ML BAG IV ONE (18:16)
[2024-04-11] MEDS ORDERED: D10W 250 ML IV ONE (18:16)
[2024-04-11] MEDS ORDERED: ACETAMINOPHEN 500 MG TAB PO PRN (18:33)
[2024-04-11] MEDS ORDERED: D50W 25 GM/50 ML SYRINGE IV PRN (18:41)
[2024-04-11] MEDS ORDERED: GLUCAGON 1 MG/VIAL IM PRN (18:41)
--- NOTE | 2024-04-11 18:43 | P.HP ---
Certification for Inpatient With expected LOS: >2 Midnights Patient will require the following post-hospital care: None Practitioner: I am a practitioner with admitting privileges, knowledge of patient current condition, hospital course, and medical plan of care. Services: Services provided to patient in accordance with Admission requirements found in Title 42 Section 412.3 of the Code of Federal Regulations Patient History Date of Service: 04/11/24 Reason for admission: Hyperkalemia with acute on chronic renal failure History of Present Illness: Is 79 years of age admitted with feeling bad for the past 3 days denies any fever or chills he is at he has chronically loose stools poor historian just says that he has been feeling better denies any fever chills cough sputum hemoptysis chest pain with acute on chronic renal failure associated with hyperkalemia Allergies codeine Allergy (Verified 09/17/23 09:11) Itching Penicillins Allergy (Verified 09/17/23 09:11) Rash Home Medications: Atorvastatin Calcium [Lipitor] 40 mg PO BEDTIME 05/12/18 Aspirin 1 tab PO DAILY 10/10/20 Dapagliflozin Propanediol [Farxiga] 2 tab PO DAILY 04/05/22 Carbidopa/Levodopa 25-100 [Sinemet 25-100*] 2 tab PO TID 03/01/24 Hydralazine HCl 25 mg PO TID 03/01/24 Insulin Glargine/Lixisenatide [Soliqua 100 Unit-33 Mcg/ml Pen] 20 units SQ DAILY 03/01/24 Metoprolol Succinate [Toprol Xl] 25 mg PO BID 03/01/24 Potassium Chloride 20 meq PO DAILY 03/01/24 Pramipexole [Mirapex*] 1 mg PO TID 03/01/24 Spironolactone 25 mg PO DAILY 03/01/24 Furosemide [Lasix] 40 mg PO BIDL #60 tab 03/03/24 - Past Medical/Surgical History Diabetic: Yes -: Hypertension -: DM type 2 -: Chronic atrial fibrillation -: Coronary artery disease -: Benign Tremors -: CKD 4 -: CABG -: Rotator cuff surgery Psychosocial/ Personal History: Patient lives at home with his - Family History Sister -: Diabetes Father -: Lung disease Notes: emphysema - Social History Alcohol use: No CD- Drugs: No Caffeine use: Yes Review of Systems 10-point ROS is otherwise unremarkable General: Weakness Physical Examination - Vital Signs Temperature: 97.6 F Blood Pressure: 116/68 Pulse: 70 Respirations: 14 Pulse Ox (%): 100 - Physical Exam General: Alert, In no apparent distress, Oriented x3 Neck: 2+ carotid pulse no bruit Respiratory: Clear to auscultation bilaterally Cardiovascular: No edema, Regular rate/rhythm, Normal S1 S2 Gastrointestinal: Normal bowel sounds, Soft and benign Musculoskeletal: Other (Right leg is wrapped in a bandage) Integumentary: No rashes, No breakdown Neurological: Normal speech, Normal strength at 5/5 x4 extr - Studies Laboratory Data (last 24 hrs) 04/11/24 04/11/24 04/11/24 15:32 15:32 15:32 WBC 7.20 Hgb 12.4 L Hct 38.3 L Plt Count 172 PT 11.3 INR 1.03 APTT 32.0 Sodium 131 L Potassium 6.1 H* BUN 64 H Creatinine 3.10 H Glucose 217 H Magnesium 2.5 H Total Bilirubin 0.8 AST 17 ALT < 14 L Alkaline Phosphatase 219 H Assessment and Plan - Problems (Diagnosis) (1) Acute on chronic renal failure Current Visit: Yes Status: Acute Plan: And is 79 years of age with history of diabetes renal failure coronary artery disease status post CABG. With feeling bad he is found to be in acute on chronic renal failure with hyperkalemia likely is all prerenal his chest x-ray is clear take potassium spironolactone at home has a history of severe diastolic dysfunction with secondary pulmonary hypertension to admit hold spironolactone potassium and diuretics gentle hydration function should improve with IV fluid all nephrology add a small dose of insulin to correct hyperglycemia Qualifiers: Chronic kidney disease stage: stage 4 (severe) - Advance Directives Does patient have a Living Will: No Does patient have a Durable POA for Healthcare: No
[2024-04-11] MEDS ORDERED: D10W 125 ML IV PRN (19:50)
[2024-04-11 20:10] VITALS: O2SAT 100
[2024-04-11] MEDS: INSULIN REGULAR (HUMAN) 100 UNIT/ML SQ SCH (21:00)
--- NOTE | 2024-04-11 21:22 | RAD REPORT ---
EXAM DESCRIPTION: US - Renal Ultrasound-Complete - 04/11/2024 7:54 pm CLINICAL HISTORY: Return chronic renal failure COMPARISON: Abdomen Pelvis Wo Contrast dated 09/30/2023 TECHNIQUE: Sonographic grayscale and color flow images of the kidneys and bladder were obtained. FINDINGS: Both kidneys are normal in size, shape, and echotexture. The right kidney measures 10.4 cm in length. No hydronephrosis, focal mass, or echogenic calculi. The left kidney measures 10.7 cm in length. No hydronephrosis, focal mass, or echogenic calculi. Righ t lower pole 2.2 cm anechoic cyst, benign in appearance. The urinary bladder is without gross abnormality seen. IMPRESSION: No suspicious findings in the kidneys and bladder. Incidentally noted benign-appearing r ight lower pole 2.2 cm cyst.
[2024-04-11] MEDS: NA CHLORIDE 0.9% 1,000 ML ONE (21:55)
[2024-04-11] MEDS: NA CHLORIDE 0.9% 1,000 ML IV SCH (22:01)
[2024-04-11 22:45] LABS: Anion Gap 11.3 mEq/L (5.0-15.0); Potassium 5.3 mEq/L (3.5-5.1)
[2024-04-11 22:56] VITALS: BMI 33.0
[2024-04-11] MEDS: FERROUS SULFATE 325 MG TAB PO SCH (23:47)
[2024-04-11] MEDS: ASPIRIN EC 81 MG TAB PO SCH (23:47)
[2024-04-11] MEDS: SOD POLYSTYREN SUL 15 GM/60 ML UCUP PO ONE (23:48)
[2024-04-11] MEDS: GABAPENTIN 300 MG CAP PO SCH (23:48)
[2024-04-12 06:51] LABS: Absolute Eosinophils 0.2 K/uL (0-0.5); Absolute Lymphocytes (CBC) 1.2 K/uL (0.7-4.9); Absolute Monocytes 0.5 K/uL (0.1-1.3); Absolute Neutrophil 7.4 K/uL (1.8-8.0); Basophils % 0.5 % (0-1.3); Hematocrit 37.1 % (39.6-49.0); Hemoglobin 12.4 g/dL (13.6-17.9); Lymphocytes % 12.9 % (15.3-44.8); MCH 25.6 pg (27.0-35.0); MCHC 33.5 g/dL (32.0-36.0); MCV 76.4 fL (80-100); MPV 8.5 fL (7.6-11.3); Monocytes % 5.3 % (3.3-12.3); Neutrophils % 79.3 % (41.7-73.7); Platelets 159 thou/uL (152-406); RBC Red Blood Cell Count 4.86 M/uL (4.33-5.43); Red Cell Distribution Width 19.7 % (12.1-15.2)
[2024-04-12 07:25] LABS: AST/SGOT 16 U/L (15-37); Albumin 3.2 g/dL (3.4-5.0); Albumin/Globulin Ratio 1.2 (1.1-1.8); Alkaline Phosphatase 149 U/L (45-117); Anion Gap 11.2 mEq/L (5.0-15.0); BUN Blood Urea Nitrogen 58 mg/dL (7-18); Bicarbonate 22 mEq/L (21-32); Bilirubin Total 1.2 mg/dL (0.2-1.0); Globulin 2.6 g/dL (2.3-3.5); Glomerular Filtration Rate 26 ml/min (=/>90); Glucose Level 162 mg/dL (74-106); Potassium 5.2 mEq/L (3.5-5.1); Protein, Total 5.8 g/dL (6.4-8.2); Sodium Level 135 mEq/L (136-145)
[2024-04-12 07:45] LABS: ALT/SGPT < 14 U/L (16-61)
--- NOTE | 2024-04-12 08:13 | P.PN ---
Date of Service: 04/12/24 Subjective: feeling better reports lasix increased to TID (120mg daily) ~1 month ago, and noticed gradual weight loss down ~15-20lbs tolerating PO ROS: 10 point ROS as noted above, otherwise negative Physical Exam: GEN: Alert, oriented, NAD HEENT: Normal conjunctiva, sclera anicteric CV: Regular rate and rhythm (paced), no edema Pulm: Nonlabored respirations on room air, clear bilaterally Skin: Venous ulcers bilateral lower extremities with dressings in place Neuro: Normal speech, normal affect, mild hand tremors vitals reviewed Problem List: KRISTI on CKD4, prerenal / overdiuresis Hypotension Hyperkalemia, Hyponatremia Venous ulcers bilateral lower extremities chronic diastolic CHF hx CAD s/p CABG hx atrial-fibrillation, s/p watchman Iron deficiency anemia IDDM2 Hypertension Hyperlipidemia Parkinson's KRISTI on CKD4, prerenal / overdiuresis Hypotension Hyperkalemia, Hyponatremia Patient reports Dizziness, lightheadedness, generalized weakness for 2-3 days Blood pressure at home has been low for 2-3 days, systolic in 70s - was hold by home health to stop taking blood pressure medications steady weight loss since increased lasix ~3-4 weeks ago sounds like good target weight: ~210lb CXR negative ; renal U/S negative given kayexelate x1 and 1L NS bolus in ED. Nephrology consulted Continue IV fluids cautiously, avoid overloading, h/o CHF check uric acid, CPK Monitor and replete electrolytes as needed Renal function improving with IVF Venous ulcers bilateral lower extremities seeing Dr. Cheng [facility] weekly Wound culture (03/25): Serratia Marcescens, sensitive to Ciprofloxacin Was given 1 week prescription of oral Cirpo 03/[address] Cheng for possible cellulitis had subq debridement of right medial lower leg (04/07) venous u/s (04/07): no DVT. Small collections including a Mercedes cyst was told to follow up with vascular as outpatient keep legs elevated has a f/u appointment 8am Tues (04/14) at [facility], if still here, may benefit from consult chronic diastolic CHF hx CAD s/p CABG hx atrial-fibrillation, s/p watchman continue metoprolol, aspirin 81 mg Iron deficiency anemia Iron studies in 09/2023 consistent with iron deficiency anemia (iron 14, tsat%: 3.9%) continue ferrous sulfate IDDM2 accu-checks, SSI Humalog mix 75/25 15u with dinner Hypertension Hyperlipidemia confirm home meds Parkinson's resume sinemet Code: Full Dispo: Home, ~1-2 days Pending nephrology recs / renal function improve s
[2024-04-12] MEDS: CARBIDOPA/LEVODOPA 25/100 TAB PO SCH (08:16)
[2024-04-12] MEDS: METOPROLOL TAR 25 MG TAB PO SCH (08:16)
[2024-04-12 08:40] LABS: Uric Acid 10.8 mg/dL (3.5-7.2)
[2024-04-12] MEDS: Magnesium Sulfate 2gm IVPB 2 G/50 ML BAG IV ONE (08:44)
--- NOTE | 2024-04-12 13:29 | EKG ---
Test Date: 2024-04-11 Test Time: 15:17:19 Batterboard Setter: NICOLAS MEASUREMENT RESULTS: Intervals: Rate: 70 PA: QRSD: 188 QT: 448 QTc: 483 [place]: P: PA: QRS: -89 T: 102 INTERPRETIVE STATEMENTS: Ventricular-paced rhythm Abnormal ECG Compared to ECG 03/12/2024 15:59:11 Ventricular premature complex(es) no longer present Electronically Signed On 04-12-24 13:27:16 CDT by Raoul Dailey
[2024-04-12] MEDS: PNEUMOCOCCAL VACCINE 0.5 ML IMVAC ONE (13:32)
--- NOTE | 2024-04-12 13:49 | P.CNS ---
Date of Consult: 04/12/24 Reason for Consult: Elevation BUN/creatinine Chief Complaint: Hyperkalemia with acute on chronic renal failure History of Present Illness: 79-year-old gentleman with significant past medical history of hypertension since 2004, COPD, Parkinson disease since 2020, diabetes since 2009 complicated with retinopathy and neuropathy, CAD status post CABG, complicated with congestive heart failure, chronic kidney disease secondary to diabetes nephropathy, cardiorenal syndrome, baseline creatinine 1.6-1.8. Last seen in the office back in February 2024 patient at that time patient was on antibiotic by his PCP patient finished antibiotic few days ago apparently when we saw him we decreased the Lasix 40 mg 3 times daily as patient was fastly losing weight patient continues to lose weight according to him between 1 pound daily since I saw him back in March 17 patient lost 20 pounds so far patient had presyncope with the blurred vision for that reason brought to the ER upon arrival to the ER found to have elevation in BUN/creatinine for that reason we have been consulted Allergies codeine Allergy (Verified 09/17/23 09:11) Itching Penicillins Allergy (Verified 09/17/23 09:11) Rash Home medications list reviewed: Yes Home Medications: Aspirin [Aspirin EC 81 MG] 81 mg PO BEDTIME 04/12/24 Atorvastatin Calcium 40 mg PO DAILY 04/12/24 Carbidopa/Levodopa [Carbidopa-Levodopa 25-100 Tab] 2 tab PO TID 04/12/24 Dapagliflozin Propanediol [Farxiga] 10 mg PO DAILY 04/12/24 Ferrous Sulfate [Ferrous Sulfate*] 325 mg PO BEDTIME 04/12/24 Furosemide 40 mg PO TID 04/12/24 Gabapentin 300 mg PO BEDTIME 04/12/24 Hydralazine [Apresoline*] 25 mg PO TID 04/12/24 Levothyroxine [Synthroid*] 25 mcg PO DAILY 04/12/24 Metformin HCl 500 mg PO DAILY 04/12/24 Metoprolol Tartrate 25 mg PO BID 04/12/24 Potassium Chloride 20 meq PO DAILY 04/12/24 Pramipexole Di-HCl [Pramipexole Dihydrochloride] 1 mg PO TID 04/12/24 Spironolactone [Aldactone*] 25 mg PO DAILY 04/12/24 - Past Medical/Surgical History Diabetic: Yes -: Hypertension 2007 -: 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 -: Chronic atrial fibrillation A-fib status post ICD October 2022 -: Coronary artery disease status post CABG 2014 -: parkinsons -: CKD III/IV normal-sized kidney 10.2/10.6 nephrotic range proteinuria/diabet -: CHF -: Parkinson disease -: COPD exacerbationMonitor closely on telemetryStarted on bronchodilators -: CABG -: Rotator cuff surgery Psychosocial/ Personal History: Patient lives at home with his - Family History Sister Medical History: Diabetes Father Medical History: Lung disease Notes: emphysema - Social History Smoking Status: Former smoker Alcohol use: Yes CD- Drugs: No Caffeine use: Yes Place of Residence: Home Review of Systems 10-point ROS is otherwise unremarkable General: Malaise Eyes: Vision Change Respiratory: SOB with Excertion Cardiovascular: Orthopnea (Presyncope), Edema, Light Headedness Gastrointestinal: Nausea Neurological: Weakness, Other (Presyncope) Physical Examination Temp Pulse Resp BP Pulse Ox 97.2 F 74 20 120/57 L 98 04/12/24 12:00 04/12/24 12:00 04/12/24 12:00 04/12/24 12:00 04/12/24 12:00 General: Alert, Oriented x3 HEENT: Atraumatic, PERRLA Neck: Supple, JVD not distended, No LAD Respiratory: Clear to auscultation bilaterally Cardiovascular: Regular rate/rhythm, Normal S1 S2, Edema, Systolic murmur Capillary refill: <2 Seconds Gastrointestinal: Normal bowel sounds, Soft and benign, Non-distended Musculoskeletal: No clubbing, No swelling Neurological: Normal gait, Normal strength at 5/5 x4 extr, Cranial nerves 3-12 intact Laboratory Data (last 24 hrs) 04/11/24 04/11/24 04/11/24 15:32 15:32 15:32 WBC 7.20 Hgb 12.4 L Hct 38.3 L Plt Count 172 PT 11.3 INR 1.03 APTT 32.0 Sodium 131 L Potassium 6.1 H* BUN 64 H Creatinine 3.10 H Glucose 217 H Magnesium 2.5 H Total Bilirubin 0.8 AST 17 ALT < 14 L Alkaline Phosphatase 219 H 04/11/24 18:09: POC Glucose 157 H 04/11/24 15:39: POC Glucose 206 H 04/11/24 15:32: PT 11.3, INR 1.03, APTT 32.0 04/11/24 15:32: Lactic Acid 1.6 04/11/24 15:32: WBC 7.20, RBC 5.01, Hgb 12.4 L, Hct 38.3 L, MCV 76.5 L, MCH 24.7 L, MCHC 32.3, RDW 19.8 H, Plt Count 172, MPV 8.2, Neutrophils % 72.8, Lymphocytes % 17.5, Monocytes % 6.5, Eosinophils % 2.6, Basophils % 0.6, Absolute Neutrophils 5.3, Absolute Lymphocytes 1.3, Absolute Monocytes 0.5, Absolute Eosinophils 0.2, Absolute Basophils 0.0 04/11/24 15:32: Sodium 131 L, Potassium 6.1 H*, Chloride 102, Carbon Dioxide 24, Anion Gap 11.1, BUN 64 H, Creatinine 3.10 H, Est GFR (CKD-EPI) 19 L, Glucose 217 H, Calcium 9.0, Magnesium 2.5 H, Total Bilirubin 0.8, Direct Bilirubin 0.3 H, Indirect Bilirubin 0.5, AST 17, ALT < 14 L, Alkaline Phosphatase 219 H, Troponin I High Sens 22.0, NT-Pro-B Natriuret Pep 2452 H, Serum Total Protein 6.4, Albumin 3.5, Globulin 2.9, Albumin/Globulin Ratio 1.2 Acetaminophen (Acetaminophen 500 Mg Tab) 500 mg PO Q6H PRN PRN Reason: Pain scale 2-4 (Mild) Aspirin (Aspirin Ec 81 Mg Tab) 81 mg PO DAILY [facility] Last Admin: 04/12/24 08:15 Dose: 81 mg Carbidopa/Levodopa (Carbidopa/Levodopa 25/100 Tab) 2 tab PO TID [facility] Last Admin: 04/12/24 13:33 Dose: 2 tab Ferrous Sulfate (Ferrous Sulfate 325 Mg Tab) 325 mg PO DAILY [facility] Last Admin: 04/12/24 08:16 Dose: 325 mg Gabapentin (Gabapentin 300 Mg Cap) 300 mg PO BEDTIME [facility] Last Admin: 04/11/24 23:48 Dose: 300 mg Glucagon (Glucagon 1 Mg/Vial) 1 mg IM 1X PRN PRN Reason: HYPOGLYCEMIA Sodium Chloride (Ns 1000 Ml Ivbag) 1,000 mls @ 75 mls/hr IV .[id number] [facility] Last Admin: 04/12/24 10:15 Dose: 1,000 mls Dextrose (Dextrose 10% Water Iv Soln.) 125 mls @ 0 mls/hr IV PRN PRN; Protocol PRN Reason: HYPOGLYCEMIA Insulin Human Regular (Insulin Regular (Human) 100 Unit/Ml) 0 unit SQ ACHS [facility]; Protocol Last Admin: 04/12/24 12:52 Dose: 7 unit Insulin Lispro Protam/Lispro Human (Humalog Mix 75/25 100 Units/Ml) 15 units SQ DAILY AT SUPPER [facility] Last Admin: 04/11/24 17:00 Dose: Not Given Metoprolol Tartrate (Metoprolol Tar 25 Mg Tab) 25 mg PO BID [facility] Last Admin: 04/12/24 08:16 Dose: 25 mg Conclusions/Impression: Assessment and plan 1. Acute kidney injury on advanced chronic kidney disease, mostly secondary to prerenal secondary to overdiuresis : Agree with holding the diuresis Will send for basic workup Continue current hydration for 1 L total Will monitor the patient closely Please avoid any nonsteroidal or SHAHBAZ inhibitor/ARB for the time being Had long discussion with the patient regarding controlling the diuresis advised the patient to weigh himself every day and to take Lasix 80 mg daily if no weight gain more than 1 pound if weight gain happened more than 1 pound at that time patient can take extra 40 mg of the Lasix patient and son verbalized understanding 2. Hypertension, controlled, optimal. At the present of acute kidney injury hold diuresis we will continue to utilize blood pressure for more diuresis. 3. 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 Workup was done before serum protein electrophoresis was negative Serology also was negative . I am going to keep avoiding any SHAHBAZ inhibitor or ARB for the time being. 4. Hyponatremia, depletional: Hold diuresis Continue IV hydration 5. Presyncope mostly secondary to dehydration will follow-up with the primary 6. Congestive heart failure without any exacerbation with the present acute kidney injury hold diuresis as above 7. Anemia secondary to gastrointestinal bleed. Continue PPI. 8. Coronary artery disease with congestive heart failure by primary Time spent examining the patient [id number], reviewing data, lab and radiology, discussing the case with the patient, discussing the case with pilot steam yacht including nursing and hospitalist more than 75 minutes
[2024-04-12 16:18] LABS: Sqamous Epithelial <5 /HPF (None Seen); Urine Bacteria None Seen /HPF (<20); Urine Bilirubin NEGATIVE (Negative); Urine Blood Negative (Negative); Urine Clarity Clear (Clear); Urine Color Colorless (Yellow); Urine Culture Reflex Order NOT NEEDED; Urine Glucose 4+ (Over) (Negative); Urine Ketones NEGATIVE (Negative); Urine Microscopic Reflex YN ORDER UMIC; Urine Mucus Slight /HPF (None Seen); Urine Nitrite NEGATIVE (Negative); Urine Protein TRACE (Negative); Urine RBC <5 /HPF (None Seen); Urine Urobilinogen Normal (Normal); Urine WBC <5 /HPF (<5); Urine pH 5.5 (5.0-7.0)
[2024-04-13 07:00] LABS: Hematocrit 37.5 % (39.6-49.0); Hemoglobin 12.4 g/dL (13.6-17.9); MCH 25.2 pg (27.0-35.0); MCV 76.5 fL (80-100); MPV 8.3 fL (7.6-11.3); Platelets 152 thou/uL (152-406); RBC Red Blood Cell Count 4.91 M/uL (4.33-5.43); Red Cell Distribution Width 19.8 % (12.1-15.2)
[2024-04-13 07:26] LABS: Albumin 3.4 g/dL (3.4-5.0); Anion Gap 8.9 mEq/L (5.0-15.0); Phosphorus 3.7 mg/dL (2.5-4.9); Potassium 4.9 mEq/L (3.5-5.1)
[2024-04-13] MEDS: LEVOTHYROXINE SOD 0.025 MG TAB PO SCH (07:43)
[2024-04-13 07:48] LABS: Thyroid Stimulating Hormone 4.79 uIU/mL (0.358-3.740)
[2024-04-13 09:05] VITALS: BP 146/69
[2024-04-13 09:33] VITALS: TEMP 96.9
--- NOTE | 2024-04-13 10:08 | P.PN ---
Date of Service: 04/13/24 Subjective: feeling better down ~15-20lbs tolerating PO ROS: 10 point ROS as noted above, otherwise negative Physical Exam: GEN: Alert, oriented, NAD HEENT: Normal conjunctiva, sclera anicteric CV: Regular rate and rhythm (paced), no edema Pulm: Nonlabored respirations on room air, clear bilaterally Skin: Venous ulcers bilateral lower extremities with dressings in place Neuro: Normal speech, normal affect, mild hand tremors vitals reviewed Problem List: KRISTI on CKD4, prerenal / overdiuresis Hypotension Hyperkalemia, Hyponatremia Venous ulcers bilateral lower extremities chronic diastolic CHF hx CAD s/p CABG hx atrial-fibrillation, s/p watchman Iron deficiency anemia IDDM2 Hypertension Hyperlipidemia Parkinson's KRISTI on CKD4, prerenal / overdiuresis Hypotension Hyperkalemia, Hyponatremia Patient reports Dizziness, lightheadedness, generalized weakness for 2-3 days Blood pressure at home has been low for 2-3 days, systolic in 70s - was hold by home health to stop taking blood pressure medications Suspect prerenal KRISTI secondary to overdiuresis. steady weight loss since increased lasix increased to TID (120mg daily) ~3-4 weeks ago sounds like good target weight: ~210lb hold lasix for now CXR negative; renal U/S negative given kayexelate x1 and 1L NS bolus in ED. Nephrology consulted Continue IV fluids cautiously, avoid overloading, h/o CHF Monitor and replete electrolytes as needed Renal function improving with IVF Venous ulcers bilateral lower extremities seeing Dr. Cheng [facility] Wound culture (03/25): Serratia Marcescens, sensitive to Ciprofloxacin Was given 1 week prescription of oral Cirpo 03/[address] Cheng for possible cellulitis had subq debridement of right medial lower leg (04/07) venous u/s (04/07): no DVT. Small collections including a Mercedes cyst was told to follow up with vascular as outpatient keep legs elevated has a f/u appointment 8am Tues (04/14) [facility], if still here, may benefit from consult chronic diastolic CHF hx CAD s/p CABG hx atrial-fibrillation, s/p watchman continue metoprolol, aspirin 81 mg Iron deficiency anemia Iron studies in 09/2023 consistent with iron deficiency anemia (iron 14, tsat%: 3.9%) continue ferrous sulfate IDDM2 accu-checks, SSI Humalog mix 75/25 15u with dinner Hypertension Hyperlipidemia resume home statin Parkinson's resume sinemet Code: Full Dispo: Home, ~1-2 days Pending nephrology recs / renal function improve s
--- NOTE | 2024-04-13 10:50 | P.DS ---
Admission Date: 04/11/24 Discharge Date: 04/13/24 Disposition: DC HOME/HOME HEALTH CARE Discharge Condition: GOOD Reason for Admission: Hyperkalemia with acute on chronic renal failure Consultations: Nephrology - Dr. Donald Brief History of Present Illness: 79 yo M, PMH: Chronic diastolic CHF, hx CAD s/p CABG, hx a-fib s/p watchman, Iron deficiency anemia, IDDM, HTN, HLD, Parkinson's Patient presented to ED with Dizziness, lightheadedness, generalized weakness for 2-3 days. denies any fever or chills. he has chronically loose stools. poor historian just says that he hasn't been feeling well. denies any fever, chills, cough, sputum, hemoptysis, chest pain. Labwork in ED with acute on chronic renal failure associated with hyperkalemia. Hospital Course: Problem List: KRISTI on CKD4, prerenal / overdiuresis Hypotension secondary to dehydration Hyperkalemia, Hyponatremia secondary to dehydration, improved Venous ulcers bilateral lower extremities chronic diastolic CHF hx CAD s/p CABG hx atrial-fibrillation, s/p watchman Iron deficiency anemia IDDM2 Hypertension Hyperlipidemia Parkinson's Physician discharge instructions: Patient presented with dizziness, lightheadedness, generalized weakness for 2-3 days and was found to have an KRISTI on admission with serum creatinine of 3.10 Workup and treatment response were consistent with pre-renal etiology, patient was dehydrated secondary to overdiuresis. He reported a steady weight loss since increased lasix to TID (120mg daily) ~3-4 weeks ago. Patient had improvement with IV fluids and holding his home lasix. Renal function quickly improved and creatinine returned back near ~baseline between 1.6-1.8. He was feeling better, strength improved, ambulating without issue, renal function improved, and was deemed stable for discharge. Advised to repeat blood work in ~1 week to monitor renal function. Creatinine on discharge: 1.78 Discussed with nephrology/patient, advised patient to decrease lasix on discharge to 40 mg twice daily. Check weight around the same time each day. If you notice weight gain > 1 lb within 24 hours, advised to take 40 mg extra lasix that day. (120 mg Lasix total) After discussion with patient and son, it seems a good target weight at this time would be ~208-210lbs. Patient reported weighing in the 220s when he had swelling in legs, and was weighing in at 203-205lbs in the last 2 days, which seems to dry/dehydrated. Medications: Lasix decreased to 40 mg twice daily; take a 3rd pill as needed for weight gain > 1 lb within 24 hours Follow up: PCP 3-5 days Nephrology 1-2 weeks Please call to schedule / confirm appointments Physical Exam: GEN: Alert, oriented, NAD HEENT: Normal conjunctiva, sclera anicteric CV: Regular rate and rhythm (paced), no edema Pulm: Nonlabored respirations on room air, clear bilaterally Skin: Venous ulcers bilateral lower extremities with dressings in place Neuro: Normal speech, normal affect Vital Signs/Physical Exam: Temp Pulse Resp BP Pulse Ox 96.9 F 72 17 146/69 H 94 04/13/24 08:00 04/13/24 08:50 04/13/24 08:00 04/13/24 08:50 04/13/24 08:00 Laboratory Data at Discharge: WBC 6.80 thou/uL (4.3-10.9) 04/13/24 06:15 Hgb 12.4 g/dL (13.6-17.9) L 04/13/24 06:15 Hct 37.5 % (39.6-49.0) L 04/13/24 06:15 Plt Count 152 thou/uL (152-406) 04/13/24 06:15 PT 11.3 SECONDS (9.4-12.5) 04/11/24 15:32 INR 1.03 04/11/24 15:32 APTT 32.0 SECONDS (24.3-36.9) 04/11/24 15:32 Sodium 138 mEq/L (136-145) 04/13/24 06:15 Potassium 4.9 mEq/L (3.5-5.1) 04/13/24 06:15 BUN 46 mg/dL (7-18) H 04/13/24 06:15 Creatinine 1.78 mg/dL (0.70-1.30) H 04/13/24 06:15 Glucose 113 mg/dL (74-106) H 04/13/24 06:15 Uric Acid 10.8 mg/dL (3.5-7.2) H 04/12/24 05:42 Phosphorus 3.7 mg/dL (2.5-4.9) 04/13/24 06:15 Magnesium 2.5 mg/dL (1.6-2.4) H 04/11/24 15:32 Total Bilirubin 1.2 mg/dL (0.2-1.0) H 04/12/24 05:42 AST 16 U/L (15-37) 04/12/24 05:42 ALT < 14 U/L (16-61) L 04/12/24 05:42 Alkaline Phosphatase 149 U/L (45-117) H D 04/12/24 05:42 Home Medications: Aspirin [Aspirin EC 81 MG] 81 mg PO BEDTIME 04/12/24 Atorvastatin Calcium 40 mg PO DAILY 04/12/24 Carbidopa/Levodopa [Carbidopa-Levodopa 25-100 Tab] 2 tab PO TID 04/12/24 Dapagliflozin Propanediol [Farxiga] 10 mg PO DAILY 04/12/24 Ferrous Sulfate [Ferrous Sulfate*] 325 mg PO BEDTIME 04/12/24 Furosemide 40 mg PO TID 04/12/24 Gabapentin 300 mg PO BEDTIME 04/12/24 Hydralazine [Apresoline*] 25 mg PO TID 04/12/24 Levothyroxine [Synthroid*] 25 mcg PO DAILY 04/12/24 Metformin HCl 500 mg PO DAILY 04/12/24 Metoprolol Tartrate 25 mg PO BID 04/12/24 Potassium Chloride 20 meq PO DAILY 04/12/24 Pramipexole Di-HCl [Pramipexole Dihydrochloride] 1 mg PO TID 04/12/24 Spironolactone [Aldactone*] 25 mg PO DAILY 04/12/24 Physician Discharge Instructions: Physician discharge instructions: Patient presented with dizziness, lightheadedness, generalized weakness for 2-3 days and was found to have an KRISTI on admission with serum creatinine of 3.10 Workup and treatment response were consistent with pre-renal etiology, patient was dehydrated secondary to overdiuresis. He reported a steady weight loss since increased lasix to TID (120mg daily) ~3-4 weeks ago. Patient had improvement with IV fluids and holding his home lasix. Renal function quickly improved and creatinine returned back near ~baseline between 1.6-1.8. He was feeling better, strength improved, ambulating without issue, renal function improved, and was deemed stable for discharge. Advised to repeat blood work in ~1 week to monitor renal function. Creatinine on discharge: 1.78 Discussed with nephrology/patient, advised patient to decrease lasix on discharge to 40 mg twice daily. Check weight around the same time each day. If you notice weight gain > 1 lb within 24 hours, advised to take 40 mg extra lasix that day. (120 mg Lasix total) After discussion with patient and son, it seems a good target weight at this time would be ~208-210lbs. Patient reported weighing in the 220s when he had swelling in legs, and was weighing in at 203-205lbs in the last 2 days, which seems to dry/dehydrated. Medications: Lasix decreased to 40 mg twice daily; take a 3rd pill as needed for weight gain > 1 lb within 24 hours Follow up: PCP 3-5 days Nephrology 1-2 weeks Please call to schedule / confirm appointments Followup: Camacho Donald MD [ACTIVE - CAN ADMIT] - 1-2 Weeks Adrienne Sequeira [Primary Care Provider] - 1-2 Weeks Time spent managing pt's care (in minutes): 45
[2024-04-13 11:30] LABS: UR PROTEIN 60.8 mg/dL (<11.9); Urine Protein/Creatinine Ratio 1.74 ratio (<0.15)
[2024-04-13] MEDS ORDERED: GABAPENTIN 300 MG CAP PO SCH (21:00)
[2024-04-13] MEDS ORDERED: ATORVASTATIN 40 MG TAB PO SCH (21:00)
== END 2024-04-13 12:00 | disposition home health service (06) | DRG 683 ==
LOC: ER 15:10 → ERHOLD 18:33 → 4TH 20:00
PROVIDERS: ADMIT Internal Medicine Sleep Medicine; ATTEND Hospitalist
DX: N17.9 Acute kidney failure, unspecified (principal); E87.1 Hypo-osmolality and hyponatremia; I13.0 Hypertensive heart and chronic kidney disease with heart failure and stage 1 through stage 4 chronic kidney disease, or unspecified chronic kidney disease; I50.32 Chronic diastolic (congestive) heart failure; I48.20 Chronic atrial fibrillation, unspecified; L97.919 Non-pressure chronic ulcer of unspecified part of right lower leg with unspecified severity; L97.929 Non-pressure chronic ulcer of unspecified part of left lower leg with unspecified severity; E11.22 Type 2 diabetes mellitus with diabetic chronic kidney disease; E11.65 Type 2 diabetes mellitus with hyperglycemia; N18.4 Chronic kidney disease, stage 4 (severe); Z79.4 Long term (current) use of insulin; I25.10 Atherosclerotic heart disease of native coronary artery without angina pectoris; E11.319 Type 2 diabetes mellitus with unspecified diabetic retinopathy without macular edema; E11.40 Type 2 diabetes mellitus with diabetic neuropathy, unspecified; E87.6 Hypokalemia; Z28.311 Partially vaccinated for COVID-19; Z88.0 Allergy status to penicillin; Z79.01 Long term (current) use of anticoagulants; Z95.1 Presence of aortocoronary bypass graft; E78.5 Hyperlipidemia, unspecified; I27.20 Pulmonary hypertension, unspecified; M71.20 Synovial cyst of popliteal space [Baker], unspecified knee; J44.9 Chronic obstructive pulmonary disease, unspecified; D50.8 Other iron deficiency anemias; G20.A1 Parkinson's disease without dyskinesia, without mention of fluctuations
CPT/HCPCS: 36415; 71045; 76770; 80048; 80053; 80069; 80076; 81001; 82550; 82570; 82947; 83605; 83735; 83880; 84156; 84439; 84443; 84484; 84550; 85025; 85027; 85610; 85730; 87040; 90471; 90732; 93005; 99285; J0612; J1815; J7030

== ENCOUNTER 2024-05-24 15:29 | Emergency (ER) | payer OTHER ==
--- OUTSIDE RECORDS SUMMARY | 2024-05-24 15:35 | XMS REPORT | Continuity of Care Document ---
Author Name Unknown Address [address] [facility] [address] [place] [address] [facility] Address [address] [facility] [address] [place] [address] Care Team Providers Care Utility Manager Name Role Phone None, None Primary Care Physician Unavailab Satinder Vaz MD Attending Clinician [phone] JOSEE LI Attending Clinician Unavailab EH Burton [...] Expirati on Date Source [employer] MED[employer]ARE PPO [id number] 1 00:00:00 [employer] MED[employer] PPO [id number] 1 00:00:00 Problems Condition Name Condition Details Condition Category Status Onset Date Resolution Date Last Treatment Date Treating Clinician Comments Source Presence of Watchman left atrial appendage closure device Presence of Watchman left atrial appendage closure device Disease Active 8-21 00:00: 00 [facility] Pneumonia Pneumonia Disease Active 8-17 00:00: 00 [facility] Congestive heart failure Congestive heart failure Disease Active 8-17 00:00: 00 [facility] Bradycardi a Bradycardi a Disease Active 8-17 00:00: 00 [facility] Pacemaker Pacemaker Disease Active 8-17 00:00: 00 [facility] Melanoma Melanoma Disease Active 2-01 00:00: 00 [facility] Parkinson' s disease Parkinson' s disease Disease [...] continue to follow-up with his local provider. [facility] Chronic atrial fibrillati on Chronic atrial fibrillati on Disease Active 2020-10 0-14 00:00: 00 Overview: Formattin g of this note might be different from the original. Last Assessmen t & Plan: Formattin g of this note might be different from the original. He is currently in sinus rhythm. He continues to follow with his local cardiolog ist and takes Xarelto 15 mg daily. Continue cardiac medicatio ns, as above. [facility] Hyperkalem ia Hyperkalem ia Disease Active 2020-10 0-14 00:00: 00 Overview: Formattin g of this [...] to Dr. Gandhi with his recent labs. [facility] Hyperlipid emia Hyperlipid emia Disease Active 2020-10 [...] fatty and fried foods and increase activity. [facility] Neuropathy Neuropathy Disease Active 2020-10 00:00: 00 Overview: Formattin g of this note might be different from the original. Last Assessmen t & Plan: Formattin g of this note might be different from the original. The neuropath y is overall stable; continue gabapenti n 300 mg at bedtime. 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 Last Assessmen t & Plan: Formattin g of this note might be different from the original. Refer to plan under history of malignant melanoma of the skin. [facility] Tremor Tremor Disease Active 2020-10 00:00: 00 Overview: Formattin g of this note might be different from the original. Last Assessmen t & Plan: Formattin g of this note might be different from the original. He has a tremor for which she is being followed by a local neurologi st. He is being evaluated for Parkinson 's. [facility] Type 2 diabetes mellitus Type 2 diabetes mellitus Disease Recurre nce 2020-10 00:00: 00 Overview: Formattin g of this note might be different from the original. Last Assessmen t & Plan: Formattin g of this note might be different from the original. Blood glucose is 117 today; he continues with Farxiga 5 mg daily. His local PCP continues to manage his diabetes. [facility] History of malignant melanoma of skin History of malignant melanoma of skin Disease Active 2019-10 00:00: 00 Overview: Formattin g of this note might be different from the original. Last Assessmen t & Plan: Formattin g of this note might be different from the original. Robe Ritchie is a 77 y.o. 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 This was treated with a wide local excision and negative sentinel node biopsy. He developed local recurrenc e in the left ear in 2010. He has remained free of disease since this time and has been followed with active surveilla nce and in 07/2021 transitio michael to the [facility] Surviv[facility] hip [...] and educated on the importanc e of [facility]. Encourage d to continue with routine physical, ophthalmo logy and dental exams. [facility] Hypertensi on Hypertensi on Disease Recurre nce [...] and Lasix secondary to his kidney function. [facility] Serum creatinine raised Serum creatinine raised Disease [...] nephrotox ic agents that he should avoid. [facility] Fatty liver Fatty liver Disease Active 05-07 00:00: 00 [facility] Allergies, Adverse Reactions, Alerts Allergy Name Allergy Type Status Severity Reaction(s) Onset Date Inactive Date Treating Clinician Comments Source CODEINE SULFATE DRUG INGREDI Active 04-13 00:00: [...] reaction s Active Rash 04-13 00:00: 00 [facility] Penicill ins DA Active SV RASHES 2012-10 00:00: 00 [facility] codeine DA Active SV ITCHING 2012-10 00:00: 00 [facility] Social History Social Habit Start Date Stop Date Quantity Comments Source History of tobacco use Cigarette Smoker [facility] Alcohol intake 2023-06-10 00:00:00 2023-06-10 00:00:00 Ex-drinker (finding) [facility] Exposure to SARS-CoV-2 (event) 2022-11-12 00:00:00 2022-11-22 14:16:00 Not sure [facility] Tobacco use and exposure 2022-11-22 00:00:00 2022-11-22 00:00:00 Smokeless tobacco non-user [facility] Sex Ass[birth year] At 1945 00:00:00 1945 00:00:00 [facility] Smoking Status Start Date Stop Date Source Ex-smoker 2022-11-22 00:00:00 2022-11-22 00:00:00 [facility] Medications Ordered Medication Name Filled Medication Name Start Date Stop Date Current Medication? Ordering Clinician Indication Dosage Frequency Signature (SIG) Comments Components Source pramipexole (Mirapex) 0.25 MG tablet 06-10 10:29: 47 Yes .25mg [id number] 3D Take 0.25 mg by mouth in the morning and 0.25 mg at noon and 0.25 mg in the evening. [facility] Apoaequorin (PREVAGEN PO) 06-10 10:29: 47 Yes Take by mouth. [facility] ferrous gluconate (Fergon) 324 (38 Fe) MG tablet 06-10 10:27: 08 06-10 00:00 :00 No Take by mouth. [facility] lisinopril 40 MG tablet 06-10 10:26: 06 06-10 00:00 :00 No 20mg Take 20 mg by mouth. [facility] aspirin 81 MG chewable tablet 06-10 10:26: 04 Yes 81mg Chew 81 mg. [facility] atorvastati n (Lipitor) 40 MG tablet 06-10 10:26: 04 Yes 40mg Take 40 mg by mouth. [facility] doxazosin (Cardura) 2 MG tablet 06-10 10:26: 04 Yes 2mg Take 2 mg by mouth. [facility] gabapentin (Neurontin) 300 MG capsule 06-10 10:26: 04 Yes 300mg Take 300 mg by mouth. [facility] metoprolol succinate XL (Toprol-XL) 25 MG 24 hr tablet 4-13 00:00: 00 Yes 25mg Q.5D Take 25 mg by mouth in the morning and 25 mg before bedtime. [facility] rivaroxaban (Xarelto) 15 MG tablet 11-22 14:47: 44 11-22 00:00 :00 No 15mg Take 15 mg by mouth. [facility] aspirin 81 MG chewable tablet 11-22 14:47: 11 Yes 81mg Chew 81 mg. [facility] atorvastati n (Lipitor) 40 MG tablet 11-22 14:47: 11 Yes 40mg Take 40 mg by mouth. [facility] doxazosin (Cardura) 2 MG tablet 11-22 14:47: 11 Yes 2mg Take 2 mg by mouth. [facility] ferrous gluconate (Fergon) 324 (38 Fe) MG tablet 11-22 14:47: 11 Yes Take by mouth. [facility] gabapentin (Neurontin) 300 MG capsule 11-22 14:47: 11 Yes 300mg Take 300 mg by mouth. [facility] lisinopril 40 MG tablet 11-22 14:47: 11 Yes 20mg Take 20 mg by mouth. [facility] amLODIPine (Norvasc) 10 MG tablet 11-22 14:46: 10 11-22 00:00 :00 No 10mg Take 10 mg by mouth. [facility] allopurinol (Zyloprim) 300 MG tablet 11-22 14:45: 24 11-22 00:00 :00 No 300mg Take 300 mg by mouth. [facility] Eliquis 5 MG tablet -17 00:00: 00 Yes 5mg Q.5D Take 5 mg by mouth in the morning and 5 mg before bedtime. [facility] amiodarone (Pacerone) 200 MG tablet 2021-10- 00:00: 00 11-22 00:00 :00 No 200mg 200 mg. [facility] furosemide (Lasix) 40 MG tablet 2021-10- 00:00: 00 Yes 40mg 40 mg. [facility] Umeclidiniu m-Vilantero l 62.5-25 MCG/ACT aerosol powder 2021-10- 00:00: 00 Yes 1{puff} 1 puff. [facility] pantoprazol e (ProtoNix) 40 MG EC tablet 2021-10 00:00: 00 11-22 00:00 :00 No 40mg 40 mg. [facility] Insulin Glargine-Li xisenatide 100-33 UNT-MCG/ML solution pen-injecto r 2021-10 00:00: 00 Yes BEFORE MEALS AND AT BEDTIME [facility] sodium bicarbonate 325 MG tablet 2021-10 00:00: 00 Yes 650mg 650 mg. [facility] carbidopa-l evodopa (Sinemet) 25-100 MG tablet 07-01 00:00: 00 Yes 2{tbl} 2 tablets. [facility] hydrALAZINE (Apresoline ) 25 MG tablet 06-28 00:00: 00 Yes 25mg 25 mg. [facility] predniSONE (Deltasone) 20 MG tablet 6-16 00:00: 00 11-22 00:00 :00 No 20mg 20 mg. [facility] dapaglifloz in (Farxiga) 5 MG 6-15 00:00: 00 Yes 1{tbl} 1 tablet. [facility] pramipexole (Mirapex) 0.125 MG tablet 11-21 00:00: 00 11-22 00:00 :00 No 1{tbl} [id number] 3D Take 1 tablet by mouth in the morning and 1 tablet at noon and 1 tablet in the evening. [facility] Vital Signs Vital Name Observation Time Observation Value Comments S our Systolic blood pressure 2023-06-10 15:20:00 131 mm[Hg] [facility] Diastolic blood pressure 2023-06-10 15:20:00 75 mm[Hg] [facility] Heart rate 2023-06-10 15:20:00 69 /min [facility] Body height 2023-06-10 15:20:00 167.6 cm [facility] weight 2023-06-10 15:20:00 99.791 kg [facility] BMI 2023-06-10 15:20:00 35.51 kg/m2 [facility] ealt Systolic blood pressure 2022-11-22 20:43:00 95 mm[Hg] [facility] Diastolic blood pressure 2022-11-22 20:43:00 58 mm[Hg] [facility] Heart rate 2022-11-22 20:43:00 70 /min [facility] Body height 2022-11-22 20:43:00 172.7 cm [facility] Body weight 2022-11-22 20:43:00 92.987 [facility] BMI 2022-11-22 20:43:00 31.17 kg/m2 [facility] Procedures Procedure Date / Time Performed Performing Clinicia n Source ECG 12-LEAD 2023-06-10 16:05:51 Josee Plasencia [facility] [id number] 2023-01-30 00:00:00 RASSA [facility] ECG 12-LEAD 2022-11-22 20:51:00 [facility] [id number] [id number] 2022-[facility]-05 [facility] [id number] 2022-11-05 [facility] [id number] 2022-11-02 00:00:00 KYRPO [facility] Encounters Start Date/Time End Date/Time Encounter Type Admission Type Attending Clinicians Care Facility Care Department Encounter ID Source 2023-03-28 14:54:56 Outpatient [facility] [id number] [facility] 2023-01-17 15:36:04 Outpatient [facility] [id number] [facility] 2023-01-16 11:42:11 Outpatient [facility] [id number] [facility] 2022-11-23 14:44:00 Outpatient [facility] [id number] [facility] 2022-11-22 14:10:22 Outpatient [facility] [id number] [facility] 2022-11-21 14:02:07 Outpatient [facility] [id number] [facility] 2022-11-16 13:09:26 Outpatient [facility] [id number] [facility] 2022-11-08 13:33:42 Outpatient [facility] [id number] [facility] 2022-11-07 09:40:24 Outpatient [facility] [id number] [facility] 2022-11-06 09:33:34 Outpatient [facility] [id number] [facility] 2022-11-04 20:47:02 Outpatient [facility] [id number] [facility] 2024-03-26 13:30:00 2024-03-26 13:45:00 Office Visit Satinder Martinez Sherrill [id number] 2023-08-01 10:10:03 2023-08-01 23:59:00 Outpatient ESME BHUPENDRARASHEEDA EASTMANELLE MDA MDA [id number] MD Sunil grider 2023-08-01 13:37:31 2023-08-01 14:10:02 Outpatient ESME EH TAVAREZ MDA MDA [id number] MD Sunil grider 2023-08-01 13:38:00 2023-08-01 13:38:00 Outpatient ESME REYJOSEE JUAREZ MDA MDA [id number] MD Sunil grider 2023-08-01 11:00:08 2023-08-01 11:00:08 Outpatient JOSEE KERN MDA MDA [id number] MD Sunil grider 2023-08-01 10:31:46 2023-08-01 10:31:46 Outpatient JOSEE KERN MDA MDA [id number] MD Sunil grider 2023-06-10 10:00:00 2023-06-10 10:58:48 Office Visit Josee Plasencia [facility] [id number] [facility] 2023-06-06 13:45:00 2023-06-06 13:45:00 Outpatient ARAMIS THOMAS [facility] [id number] [facility] 2023-01-30 05:50:00 2023-01-30 17:37:00 Inpatient Mickey Gee [facility] CARD [id number] [facility] 2022-11-22 14:45:00 2022-11-22 15:17:29 Office Visit Aramis Thomas [facility] [id number] [facility] 2022-10-31 05:46:00 2022-11-06 12:48:00 [facility] [id number] [facility] 2022-08-02 10:40:58 2022-08-02 23:59:00 Outpatient EL MDA MDA [id number] MD Sunil grider 2022-08-02 13:29:31 2022-08-02 13:29:31 Outpatient EL RASHEEDA LIELLE MDA MDA [id number] MD Sunil grider 2022-08-02 12:59:37 2022-08-02 12:59:37 Outpatient EL MDA MDA [id number] MD Sunil grider 2022-08-02 11:29:26 2022-08-02 11:29:26 Outpatient EL MDA MDA [id number] MD Sunil grider 2022-08-02 09:12:03 2022-08-02 10:12:28 Outpatient EL EH TAVAREZ MDA MDA [id number] MD Sunil grider 2021-08-03 11:01:39 2021-08-03 23:59:00 Outpatient EL JONNY TODD MDA MDA [id number] MD Sunil grider 2021-08-03 13:29:14 2021-08-03 13:29:14 Outpatient EL JONNY TODD MDA MDA [id number] MD Sunil grider 2021-08-03 12:46:21 2021-08-03 13:24:31 Outpatient EH BUTCHER MDA MDA [id number] MD Sunil grider 2021-08-03 11:00:35 2021-08-03 11:00:35 Outpatient JONNY VÁSQUEZ MDA MDA [id number] MD Sunil grider 2021-08-03 09:18:41 2021-08-03 09:18:41 Outpatient JONNY VÁSQUEZ MDA MDA [id number] MD Sunil grider 2020-08-03 07:25:55 2020-08-04 06:29:04 Outpatient SHAWNEE LEON MDA MDA [id number] MD Sunil grider 2020-08-02 12:09:49 2020-08-02 23:59:00 Outpatient FADIA SPRINGER MDA MDA [id number] MD Sunil grider 2020-08-02 09:30:00 2020-08-02 12:08:00 Outpatient FADIA SPRINGER MDA MDA [id number] MD Sunil girder 2020-08-02 09:59:38 2020-08-02 09:59:38 Outpatient FADIA SPRINGER MDA MDA [id number] MD Sunil grider 2020-08-02 00:00:00 2020-08-02 00:00:00 Outpatient FADIA SPRINGER MDA MDA [id number] MD Sunil grider Results Test Description Test Time Test Comments Results Result Co mments Source [id number] 10:52:00* Test Item Value Reference Range Interpretation Comme nts ACT-ISTAT (test code = ACTI) 263 SEC 74-137 H Performed by cer tified maintainer operator at [facility] GLUCOSE [id number] 08:49:00* Test Item Value Reference Range Interpretation Comme nts GLUCOSE BEDSIDE (test code = GLUBED) 134 MG/DL 70-110 H Performed by [facility] tifEQ works maintainer operator at [facility] - XR CHEST 1 [id number] 00:00:00 [facility] LEONOR BAUTISTAName: ROBE RITCHIE : 1945 Sex: M FAX: Manuel Gaxiola MD [phone] [place]: St: ADM FAX: Raoul Bowens MD [phone] ----- Name: [facility]IE[facility] [place] : 1945 Age/S: 77/M [address] [place] [address] Blvd Unit #: [id number] Loc: [place] [address] Phys: Raoul Dailey MD Acct: [id number] Dis Date: Status: ADM IN PHONE #: [phone] Exam Date: 01/30/2023 1200 FAX #: [phone] Reason: S/P WATCHMAN EXAMS: CPT CODE: [id number] XR CHEST 1 V 53161 PROCEDURE INFORMATION: Exam: XR Chest Exam date [...] Gandhi MD; Raoul Dailey MD Technologist: RT Alayna(R) Trnscrd Date/Time/By: 01/30/2023 (1212) : By: [email or web address] Orig Print D/T: S: 01/30/2023 (1212) PAGE 1 Signed ReportBASIC METABOLIC [id number] 12:42:00* Test Item Value Reference Range Interpretation [...] code = CA) 9.2 mg/dL 8.0-10.5 N [id number] 12:42:00* Test Item Value Reference Range Interpretation Comme nts PREALBUMIN (test code = PREALB) 22.9 mg/dL 16.0-40.0 N PROTHROMBIN [id number] 12:24:00* Test Item Value Reference Range Interpretation [...] Infarction (to prevent recurrent infarct). CBC W/AUTO [id number] 12:20:00* Test Item Value Reference Range Interpretation [...] = MDIFF) NO - XR CHEST 2 [id number] 00:00:00 [facility] ROBE RITCHIE : 1945 Sex: M FAX: Manuel Gaxiola MD [phone] [place]: St: PRE FAX: Raoul Bowens MD [phone] ------ Name: ROBE RITCHIE JR [facility] Leonor Bautista : 1945 Age/S: 77/M [address] [place] [address] Unit #: [id number] Loc: [place] [address] Phys: Raoul Dailey MD Acct: [id number] Dis Date: Status: PRE IN PHONE #: [phone] Exam Date: 01/28/2023 1311 FAX #: [phone] Reason: PRE OP EXAMS: CPT CODE: [id number] XRCHEST 2 V 69768 PROCEDURE INFORMATION: Exam: XR Chest Exam date [...] No pneumothorax. Heart/Mediastinum: Mild cardiomegaly is unchanged.Calcifications andtortuosity of the aorta is noted.. Bones/joints: Median sternotomy wires are identified. IMPRESSION: No acute cardiopulmonary findings. at 1349 Reported and signed by: Sherry Marroquin M.D. CC: Manuel Gandhi MD; Raoul Dailey MD Technologist: Sara Wolfe RT(R) Trnscrd Date/Time/By: 01/28/2023 (1348) : By: Altagracia Kessler Print D/T: S: 01/28/2023 (306) PAGE 1 Signed ReportGLUCOSE [id number] 11:50:00* Test Item Value Reference Range Interpretation Comme nts GLUCOSE BEDSIDE (test code = GLUBED) 171 MG/DL 70-110 H Performed by jerome carson at [facility] CYTOLOGY NON [id number] 11:05:00* Test Item Value Reference Range Interpretation Comme nts CYTOLOGY NON LABELLING MACHINE OPERATOR (test code = CR) R UN DATE: 11/06/22 [place] - LAB PAGE 1 RUN TIME: 1106 Specimen Inquiry RUN USER: INTERFACE P ATIENT: ERMAROBELizbeth PAINTER JR [facility] [id number] AGE/SX: 77/M ROOM: [facility] RE10/31/22REG DR: Kristina Hodge MD : 41 BED: 1 DIS: STATUS: ADM IN TLOC: SPEC #: [id number] RECD: 11/05/22 STATUS: SHIVA REQ #: [id number] JHON: 11/02/22- SUBM DR: Kristina Hodge MD ENTERED: 11/05/22 SP TYPE: CYTO NGYN OTHR DR: No Primary or Family Physician Sherly Gomes MD, Molham MD Barr, David T MD Dahdel, Maher MD Lakhani, Asif MD Raslan,Aramis Narayanan MD, MDORDERED: [id number], [id number], ANATOMIC SPEC COPIES TO: No Primary or Family Physician Sherly Gomes MD [address] [facility] [place] [address] [place] [address] Mickey Briggs MD [address] [id number] Kristina Hodge MD [address] [facility] [place] [address] Manuel Gandhi MD [address] [place] [phone] Taylor Lowery MD [address] [facility] [address] [place] [address] Carlos Alberto Barfield MD [address] [place] [address] CONTINUED ON NEXT PAGE R UN DATE: 11/06/22 [place] - LAB PAGE 2 RUN TIME: 1106 Specimen Inquiry RUN USER: INTERFACE S PEC #: [id number] PATIENT: ERMAROBELizbeth PAINTER JR #[id number] (Continued) COPIES TO: (Continued) Raoul Dailey MD [address] [place], [place] [id number] [place] [address] [address], [address] [place], [place] [id number] PROCEDURES: 38106 (11/05/22) 96227 (11/05/22) TISSUES: A. PLEURAL FLUID - RIGHT CLINICAL HISTORY SAME FINAL DIAGNOSIS Pleural effusion, right, cellblock and cytospin: No cells diagnostic of malignancy. GROSS DESCRIPTION Received right pleural effusion is 45 mL of yellow fluid without fixative for cytologicevaluation, cellblock and cytospin smears are prepared. Technical component performed at [facility],[address] [place] [address] Unless gross only, the diagnosis is based [...] recommended if clinicallyindicated. CONTINUED ON NEXT PAGE R UN DATE: 11/06/22 [place] - LAB PAGE 3 RUN TIME: 1106 Specimen Inquiry RUN USER: INTERFACE S PEC #: [id number] PATIENT: ROBE RITCHIE #[id number] (Continued) CLINICAL INFORMATION RIGHT PLEURAL EFFUSION ------- Signed _ Manuel Ybarra 11/06/22 1105 END OF REPORT BASIC METABOLIC [id number] 08:38:00* Test Item Value Reference Range Interpretation [...] code = CA) 9.2 mg/dL 8.0-10.5 N [id number] 08:38:00* Test Item Value Reference Range Interpretation Comme nts PHOSPHOROUS (test code = PHOS) 4.2 MG/DL 2.5-4.9 N [id number] 08:38:00* Test Item Value Reference Range Interpretation Comme nts MAGNESIUM (test code = MAG) 2.03 mg/dL 1.80-2.40 N CBC W/AUTO [id number] 08:26:00* Test Item Value Reference Range Interpretation [...] (test c ode = MDIFF) NO GLUCOSE [id number] 05:51:00* Test Item Value Reference Range Interpretation Comme nts GLUCOSE BEDSIDE (test code = GLUBED) 101 MG/DL 70-110 N Performed by jerome carson at [facility] - XR CHEST 1 [id number] 00:00:00 [facility] IN[facility] : 1945 Sex: M FAX: Kristina Adrian MD [phone] [place]: St: ADM FAX: Manuel Gaxiola MD [phone] FAX: Raoul Bowens MD [phone] FAX: Wade Altman [phone] Name: ROBE RITCHIE [facility] :1945 Age/S: 77/M [address] [place] [address] Unit #: [id number] Loc: G.4421 DavidTONY [address] Phys: Wade AltmanP Acct: [id number] Dis Date: Status: ADM IN PHONE #: [phone] Exam Date: 11/06/2022 0950 FAX #: [phone] Reason: Post PM/ICD EXAMS: CPT CODE: [id number] XR CHEST 1 V 20901 PROCEDURE INFORMATION: Exam: XR Chest Exam date [...] left pulmonary infiltrate. at 1013 Reported and signedby: Alessandra Franks M.D. CC: Kristina Hodge MD; Manuel Gandhi MD; Raoul Dailey MD; Wade Altman Technologist: RT Mary(R) Trnscrd Date/Time/By: 11/06/2022 (1013) : By: [id number] 1 Signed ReportGLUCOSE [id number] 19:11:00* Test Item Value Reference Range Interpretation Comme nts GLUCOSE BEDSIDE (test code = GLUBED) 121 MG/DL 70-110 H Performed by cer tified maintainer operator at [facility] GLUCOSE [id number] 16:47:00* Test Item Value Reference Range Interpretation Comme nts GLUCOSE BEDSIDE (test code = GLUBED) 122 MG/DL 70-110 H Performed by Right Skillsied maintainer operator at [facility] COVID 19 Asymptomatic IH [id number] 08:22:00* Test Item Value Reference Range Interpretation [...] moderate, high or waivedcomplexity tests. BASIC METABOLIC [id number] 08:13:00* Test Item Value Reference Range Interpretation [...] code = CA) 9.5 mg/dL 8.0-10.5 N [id number] 08:13:00* Test Item Value Reference Range Interpretation Comme nts PHOSPHOROUS (test code = PHOS) 5.1 MG/DL 2.5-4.9 H [id number] 08:13:00* Test Item Value Reference Range Interpretation Comme nts MAGNESIUM (test code = MAG) 2.11 mg/dL 1.80-2.40 N CBC W/AUTO [id number] 07:38:00* Test Item Value Reference Range Interpretation [...] c ode = MDIFF) NO THROMBOPLASTIN TIME [id number] 07:11:00* Test Item Value Reference Range Interpretation Comme nts THROMBOPLASTIN TIME PARTIAL (test code = PTT) 37.5 Seconds 25.0-39.5 N Therapeutic Rang e: 50.4 - 88.3 Seconds Effective 02/03/2019 GLUCOSE [id number] 06:09:00* Test Item Value Reference Range Interpretation Comme nts GLUCOSE BEDSIDE (test code = GLUBED) 118 MG/DL 70-110 H Performed by jerome carson at [facility] - XR CHEST 1 [id number] 00:00:00 [facility] 1945 Sex: M FAX: Kristina Adrian MD [phone] [place]: St: ADM FAX: Manuel Gaxiola MD [phone] FAX: Raoul Bowens MD [phone] FAX: Wade Altman [phone] Name: ROBE RITCHIE JR [facility] Leonor Bautista :1945 Age/S: 77/M [address] [place] [address] Bl Unit #: [id number] Loc: G.4421 [place] [address] Phys: Wade Altman Acct: [id number] Dis Date: Status: ADM IN PHONE #: [phone] Exam Date: 11/05/2022 1408 FAX #: [phone] Reason: Post PM/ICD EXAMS: CPT CODE: [id number] XR CHEST 1 V 70524 PROCEDURE INFORMATION: Exam: XR Chest Exam date and time: 11/05/2022 2:06 PM Age: 77 years old Clinical indication: Other: Post pm/icd TECHNIQUE: Imaging protocol: Radiologic exam of the chest. Views: 1 view. COMPARISON: CR XR CHEST 1V 11/02/2022 2:22 PM FINDINGS: Left chest cardiac device with leads projecting over the expected regions of the right atrium and ventricle. Lungs: Low lung volumesare present bilaterally. Bilateral multifocal airspace opacities. Pleural spaces: Small right pleural effusion. No pneumothorax. Heart/Mediastinum: Heart size is within normal limits. Atheroscleroticcalcifications. Bones/joints: No displaced fracture. Median sternotomy wires. IMPRESSION: Bilateralmultifocal airspace opacities may represent developing pneumonia. Small right pleural effusion. at 1533 Reported and signed by: Brady Santizo M.D. CC: Kristina Hodge MD; Manuel Gandhi MD; Raoul Dailey MD; Wade Altman Technologist: RT Mary(Eliseo) Trnscrd Date/Time/By: 11/05/2022 (1533) : By: [email or web address] Orig Print D/T: S:11/05/2022 (1473) PAGE 1 Signed ReportGLUCOSE [id number] 20:06:00* Test Item Value Reference Range Interpretation Comme nts GLUCOSE BEDSIDE (test code = GLUBED) 126 MG/DL 70-110 H Performed by cer tified maintainer operator at [facility] GLUCOSE [id number] 17:05:00* Test Item Value Reference Range Interpretation Comme nts GLUCOSE BEDSIDE (test code = GLUBED) 157 MG/DL 70-110 H Performed by [facility] tified maintainer operator at [facility] GLUCOSE [id number] 14:03:00* Test Item Value Reference Range Interpretation Comme nts GLUCOSE BEDSIDE (test code = GLUBED) 131 MG/DL 70-110 H Performed by cer tified maintainer operator at [facility] GLUCOSE [id number] 08:26:00* Test Item Value Reference Range Interpretation Comme nts GLUCOSE BEDSIDE (test code = GLUBED) 106 MG/DL 70-110 N Performed by [facility] tified maintainer operator at [facility] BASIC METABOLIC [id number] 07:56:00* Test Item Value Reference Range Interpretation [...] code = CA) 8.7 mg/dL 8.0-10.5 N [id number] 07:56:00* Test Item Value Reference Range Interpretation Comme nts PHOSPHOROUS (test code = PHOS) 5.5 MG/DL 2.5-4.9 H [id number] 07:56:00* Test Item Value Reference Range Interpretation Comme nts MAGNESIUM (test code = MAG) 2.07 mg/dL 1.80-2.40 N CBC W/AUTO [id number] 07:25:00* Test Item Value Reference Range Interpretation [...] (test c ode = MDIFF) NO GLUCOSE [id number] 17:07:00* Test Item Value Reference Range Interpretation Comme [facility] GLUCOSE BEDSIDE (test code = GLUBED) 129 MG/DL 70-110 H Performed by cer tified maintainer operator at [facility] GLUCOSE [id number] 13:01:00* Test Item Value Reference Range Interpretation Comme [facility] GLUCOSE BEDSIDE (test code = GLUBED) 156 MG/DL 70-110 H Performed by [email or web address] maintainer operator at [facility] BASIC METABOLIC [id number] 08:11:00* Test Item Value Reference Range Interpretation Comme [facility] SODIUM (test code = NA) 137 mEq/L [...] code = CA) 9.1 mg/dL 8.0-10.5 N [id number] 08:11:00* Test Item Value Reference Range Interpretation Comme nts PHOSPHOROUS (test code = PHOS) 6.1 MG/DL 2.5-4.9 H [id number] 08:11:00* Test Item Value Reference Range Interpretation Comme nts MAGNESIUM (test code = MAG) 2.10 mg/dL 1.80-2.40 N CBC W/AUTO [id number] 07:17:00* Test Item Value Reference Range Interpretation [...] (test c ode = MDIFF) NO GLUCOSE [id number] 05:45:00* Test Item Value Reference Range Interpretation Comme nts GLUCOSE BEDSIDE (test code = GLUBED) 150 MG/DL 70-110 H Performed by cer tified maintainer operator at [facility] GLUCOSE [id number] 21:24:00* Test Item Value Reference Range Interpretation Comme nts GLUCOSE BEDSIDE (test code = GLUBED) 158 MG/DL 70-110 H Performed by cer tified maintainer operator at [facility] GLUCOSE [id number] 18:20:00* Test Item Value Reference Range Interpretation Comme nts GLUCOSE BEDSIDE (test code = GLUBED) 179 MG/DL 70-110 H Performed by cer tified maintainer operator at [facility] PLERUAL FLD [id number] 17:00:00* Test Item Value Reference Range Interpretation [...] interpret this result as normal/abnormal. PLEURUAL FLD [id number] 17:00:00* Test Item Value Reference Range Interpretation Comme nts PLEURUAL FLD GLUCOSE (test c ode = GLUPL) 142 MG/DL PLEURAL FLD TOTAL [id number] 16:59:00* Test Item Value Reference Range Interpretation [...] interpret this result as normal/abnormal. PLEURAL FLD [id number] 16:59:00* Test Item Value Reference Range Interpretation [...] this result as normal/abnormal. PLEURAL FLD TOTAL [id number] 16:59:00* Test Item Value Reference Range Interpretation Comme nts PLEURAL FLD TOTAL PROTEIN (t est code = PROTPL) 2.8 GM/DL PLEURAL FLD [id number] 16:59:00* Test Item Value Reference Range Interpretation Comme nts PLEURAL FLD LDH (test code = LDHPL) 102 UNITS/L PLEURAL FLD CELL [id number] 16:13:00* Test Item Value Reference Range Interpretation [...] (len t code = MESPL) RARE GLUCOSE [id number] 12:19:00* Test Item Value Reference Range Interpretation Comme nts GLUCOSE BEDSIDE (test code = GLUBED) 166 MG/DL 70-110 H Performed by cer tified maintainer operator at [facility] TOTAL IRON BINDING [id number] 10:08:00* Test Item Value Reference Range Interpretation Comme nts SERUM IRON (test code = IRON) 24 mcg/dL 35-150 L TOTAL IRON BINDING CAPACITY (test code = TIBC) 378 mcg/dL 260-445 N UIBC (test code = UIBC) 354 mcg/dL IRON SATURATION (test code = FESAT) 6.3 % 14-34 L [id number] 10:08:00* Test Item Value Reference Range Interpretation Comme nts FERRITIN (test code = BOB) 34.5 ng/mL 23.9-336.2 N BASIC METABOLIC [id number] 09:58:00* Test Item Value Reference Range Interpretation [...] code = CA) 9.7 mg/dL 8.0-10.5 N [id number] 09:58:00* Test Item Value Reference Range Interpretation Comme nts PHOSPHOROUS (test code = PHOS) 4.8 MG/DL 2.5-4.9 N [id number] 09:58:00* Test Item Value Reference Range Interpretation Comme nts MAGNESIUM (test code = MAG) 2.03 mg/dL 1.80-2.40 N CBC W/AUTO [id number] 09:38:00* Test Item Value Reference Range Interpretation [...] (test c ode = MDIFF) NO GLUCOSE [id number] 06:42:00* Test Item Value Reference Range Interpretation Comme nts GLUCOSE BEDSIDE (test code = GLUBED) 118 MG/DL 70-110 H Performed by jerome ohara maintainer operator at [facility] - XR CHEST 1 [id number] 00:00:00 [facility] : 1945 Sex: M FAX: Kristina Adrian MD [phone] [place]: St: ADM FAX: Manuel Gaxiola MD [phone] FAX: Terri Matos FAX: Raoul Bowens MD [phone] Name: ERMAROBE INOCENCIO [facility] : 1945 Age/S: 77/M [address] [place] [address] Unit #: [id number] Loc: G.[address] [place] [address] Phys: Terri Matos MD Acct: [id number] Dis Date: Status: ADM IN PHONE #: [phone] Exam Date: 11/02/2022 1425 FAX #: [phone] Reason: POST RIGHT THORACENTESIS EXAMS: CPT CODE: [id number] XR CHEST 1 V 80516 PROCEDURE INFORMATION: Exam: XR Chest Exam date [...] pleural effusion. at 1457 Reported and signed by:Uriel Leon M.D. CC: Kristina Hodge MD; Manuel Gandhi MD; Terri Matos MD; Raoul Dailey MD Technologist: ANGE Banegas) Trnscrd Date/Time/By: 11/02/2022 (8697) : By: [email or web address] Orig Print D/T: S: 11/02/2022 (1736) PAGE 1 Signed Report- US THORACENTESIS [id number] 00:00:00[facility] : 1945 Sex: M Name: ROBE RITCHIE [facility] : 1945 Age/S: 77 / M [address] [place] [address] Unit #: [id number] Loc: [place] [address] Phys: Taylor Lowery MD Acct: [id number] Dis Date: Status: ADM IN PHONE #: [phone] Exam Date: 11/02/2022 1410 FAX #: [phone] Reason: r effusion EXAMS: CPT CODE: [id number] US THORACENTESIS W/IMAG 27051 PROCEDURE INFORMATION: Exam: IR Thoracentesis, Aspiration With Image Guidance Exam date and time: 11/02/2022 1:20 PM Age: 77 years old Clinical indication: Condition or disease; Additional info: R effusion TECHNIQUE: Imaging protocol: RadiologyProcedure. Thoracentesis, needle or catheter, aspiration of the pleural space with imaging guidance. Concurrent real time US visualization of vascular needle entry. Permanent recording and reporting.COMPARISON: CR XR CHEST 1V 11/01/2022 2:50 PM [...] for local anesthesia. Using ultrasound guidance, 5 Vietnamese sheathed needle was advanced into the pleural [...] 1 Signed Report (CONTINUED) Name: ROBE RITCHIE [facility] : 1945 Age/S: 77 / M [address] [place] [address] Unit #: [id number] Loc: [place] [address] Phys: Taylor Lowery MD Acct: [id number] Dis Date: Status: ADM IN PHONE #: [phone] Exam Date: 11/02/2022 1410 FAX #: [phone] Reason: r effusion EXAMS: CPT CODE: [id number] US THORACENTESIS W/IMAG 76872 (Continued) at 1633 Reported and signed by: Terri Matos M.D. CC: Kristina Maldonado; Manuel Gandhi MD; Taylor Lowery MD; Raoul Dailey MD Technologist: Daisy Tate [facility] Date/Time: 11/02/2022 (1633) PearlPK16 Orig Print D/T: S: 11/02/2022 (9653) Probe: PAGE 2 Signed ReportGLUCOSE [id number] 20:29:00* Test Item Value Reference Range Interpretation Comme nts GLUCOSE BEDSIDE (test code = GLUBED) 141 MG/DL 70-110 H Performed by cer tified maintainer operator at [facility] GLUCOSE [id number] 17:38:00* Test Item Value Reference Range Interpretation Comme nts GLUCOSE BEDSIDE (test code = GLUBED) 176 MG/DL 70-110 H Performed by cer tified maintainer operator at [facility] GLUCOSE [id number] 12:19:00* Test Item Value Reference Range Interpretation Comme nts GLUCOSE BEDSIDE (test code = GLUBED) 153 MG/DL 70-110 H Performed by [facility] tified maintainer operator at [facility] BASIC METABOLIC [id number] 08:45:00* Test Item Value Reference Range Interpretation [...] code = CA) 9.4 mg/dL 8.0-10.5 N [id number] 08:45:00* Test Item Value Reference Range Interpretation Comme nts PHOSPHOROUS (test code = PHOS) 4.3 MG/DL 2.5-4.9 N [id number] 08:45:00* Test Item Value Reference Range Interpretation Comme nts MAGNESIUM (test code = MAG) 2.17 mg/dL 1.80-2.40 N B-TYPE NATRIURETIC [id number] 08:42:00* Test Item Value Reference Range Interpretation Comme nts B-TYPE NATRIURETIC PEPTIDE ( test code = BNP) 295.0 PG/ML 0-100 H CBC W/AUTO [id number] 08:20:00* Test Item Value Reference Range Interpretation [...] (test c ode = MDIFF) NO GLUCOSE [id number] 06:16:00* Test Item Value Reference Range Interpretation Comme nts GLUCOSE BEDSIDE (test code = GLUBED) 146 MG/DL 70-110 H Performed by jerome ohara maintainer operator at [facility] - XR CHEST 1 [id number] 00:00:00 [facility] : 1945 Sex: M FAX: Kristina Adrian MD [phone] [place]: St: ADM FAX: Manuel Gaxiola MD [phone] FAX: Taylor Palacios MD [phone] FAX: Raoul Bowens MD [phone] Name: ROBE RITCHIE JR [facility] : 1945 Age/S: 77/M [address] [place] [address] Unit #: [id number] Loc: G.[address] [place] [address] Phys:Taylor Lowery MD Acct: [id number] Dis Date: Status: ADM IN PHONE #: [phone] Exam Date: 11/01/2022 1525 FAX #: [phone] Reason: sob EXAMS: CPT CODE: [id number] XR CHEST 1 V 02066 PROCEDURE INFORMATION: Exam: XR Chest Exam date [...] Dailey MD Technologist: Ck Lorenz Date/Time/By: 11/01/2022 (5529) : By: [email or web address] [facility] Print D/T: S: 11/01/2022 (9131) PAGE 1 Signed Report- JUANY VEIN MARIE 2022-11-01 00:00:00 [facility] : 1945 Sex: M Name: ROBE RITCHIE [facility] : 1945 Age/S: 77 / M [address] [place] [address] Blvd Unit #: [id number] Loc: [place] [address] Phys: Cynthia Silver AGACN Acct: [id number] Dis Date: Status: ADM IN PHONE #: [phone] Exam Date: 11/01/2022 1058 FAX #: [phone] Reason: rule out DVT, LE edema, erythema EXAMS: CPT CODE: [id number] DUP VEIN MARIE 71375 PROCEDURE INFORMATION:Exam: US Duplex Lower Extremity Veins, Bilateral Exam date and time: 11/01/2022 10:13 AM Age: 77 years old Clinical indication: Edema, localized; Lower extremity, bilateral; Additional info: Rule out dvt, le edema, erythema TECHNIQUE: Imaging protocol: Real-time duplex ultrasound of the bilateral extremities with 2-D jason scale, color Doppler flow and spectral waveform analysis with image documenta tion. Complete exam focused on the bilateral lower [...] 11/01/2022 (1108) [email or web address] PAGE 1 Signed Report- US RETROPERITONEAL [id number] 00:00:00 [facility] : 1945 Sex: M Name: ROBE RITCHIE [facility] : 1945 Age/S: 77 / M [address] [place] [address] Unit #: [id number] Loc: [place] [address] Phys: Sherly Gomes MD Acct: [id number] Dis Date: Status: ADM IN PHONE #: [phone] Exam Date: 11/01/[address] [facility] FAX #: [phone] Reason: CKD EXAMS: CPT CODE: [id number] US RETROPERITONEAL COM 68201 PROCEDURE INFORMATION: Exam: US Retroperitoneal; Com plete; [...] MD; Manuel Gandhi MD; Raoul Dailey MD Technologist:Rosa Trujillo RDMS(AB)(OB) Trnscb Date/Time: 11/01/2022 (1115) ErikR.JT18 Orig Print D/T: S: 11/01/2022 (1115) Probe: PAGE 1 Signed Report GLUCOSE [id number] 19:10:00* Test Item Value Reference Range Interpretation Comme nts GLUCOSE BEDSIDE (test code = GLUBED) 181 MG/DL 70-110 H Performed by cer [employer] maintainer operator at [facility] GLUCOSE [id number] 09:03:00* Test Item Value Reference Range Interpretation Comme nts GLUCOSE BEDSIDE (test code = GLUBED) 114 MG/DL 70-110 H Performed by [employer] maintainer operator at [facility] GLUCOSE [id number] 07:24:00* Test Item Value Reference Range Interpretation Comme nts GLUCOSE BEDSIDE (test code = GLUBED) 123 MG/DL 70-110 H Performed by cer tified maintainer operator at [facility] BASIC METABOLIC [id number] 11:52:00* Test Item Value Reference Range Interpretation [...] code = CA) 9.5 mg/dL 8.0-10.5 N [id number] 11:52:00* Test Item Value Reference Range Interpretation Comme nts PREALBUMIN (test code = PREALB) 27.7 mg/dL 16.0-40.0 N PROTHROMBIN [id number] 11:46:00* Test Item Value Reference Range Interpretation [...] Infarction (to prevent recurrent infarct). CBC W/AUTO [id number] 11:33:00* Test Item Value Reference Range Interpretation [...] = MDIFF) NO - XR CHEST 2 [id number] 00:00:00 [facility] ERMA ROBELizbeth PAINTER : 1945 Sex: M FAX: Manuel Gaxiola MD [phone] [place]: St: PRE FAX: Raoul Bowens MD [phone] ------ Name: ROBE RITCHIE [facility] : 1945 Age/S: 77/M [address] [place] [address] Unit #: [id number] Loc: G.[place] [id number] Phys: Raoul Dailey MD Acct: [id number] Dis Date: Status: PRE IN PHONE #: [phone] Exam Date: 10/29/2022 1225 FAX #: [phone] Reason: PAT EXAMS: CPT CODE: [id number] XR C HEST 2 V 97719 PROCEDURE INFORMATION: Exam: XR Chest Exam date [...] effusion. at 1252 Reported and signed by: Rnoald Escalante M.D. CC: Manuel Gandhi MD; Raoul Dailey MD Technologist: RT Jose(R); Shauna Valdes Trnscrd Date/Time/By: 10/29/2022 (2651) : By: [email or web address] Orig Print D/T: S: 10/29/2022 (0325) PAGE 1 Signed Report Notes Date/Time Note Provider Source 2023-01-30 13:42:00 [id number] [place] [address] PATIENT NAME: ROBE RITCHIE JR ADMIT DATE: 01/30/23 ACCOUNT NO: [id number] ROOM NO: [facility] AGE: 77 REPORT TYPE: eECHOCARDIOGRAM REPORT SEX: M ADMITTING PHYSICIAN:Raoul Dailey MD ATTENDING PHYSICIAN:Mickey Briggs MD *[place] [address] Limited Transthoracic Echocardiogram Patient: Robe Ritchie Study Date: 01/30/2023 BP: Location: [facility] URN: [id number] : 1945 Age: 77 Height: 65 in / 165.1 cm Gender: M Weight: 216 lb / 98.2 kg BMI/BSA: 36 kg/m 2 / 2.16 m 2 *Ordering Physician: * Wade Altman *Interpreting Physician: * Mickey Briggs MD *[employer] Maintainer: Mary Dennis [facility] Indications: R/O PERICARDIAL EFFUSION. Study data: Transthoracic echocardiogram, limited study. Limited 2D and limited spectral Doppler. Location: Bedside. Patient room number: PACU. Findings Left ventricle: The estimated ejection fraction is 50-54%. Pericardium: There is no pericardial effusion. Measurements Left ventricle Value Ref PATIENT NAME: ROBE RITCHIE JR [place], LAX 4.8 [...] Prepared and electronically signed by Mickey Briggs MD 01/30/2023 13:42 at 1342 PATIENT NAME: ROBE RITCHIE JR [facility] 2023-01-30 11:38:00 [facility] ([facility]) Discharge Summary REPORT#:[id number] REPORT STATUS: Signed DATE:01/30/23 TIME: 1138 PATIENT: ROBE RITCHIE JR UNIT #: [id number] ROOM/BED: [place] [address] : [birth year] AGE: 77 SEX: M ATTEND: Mickey Briggs MD ADM AUTHOR: Wade Altman * ALL edits or amendments must be made on the electronic/computer document * Wade Altman 01/30/23 1138: PCP PCP Discharge to: home General Information Discharge date: 01/30/23 Discharge diagnosis: AFIB Hospital course: Patient with paroxysmal atrial fibrillation, CHADSVASC score of 6, and intolerance to long-term anticoagulation due to bleeding risk. Patient is s/p successful implantation of a 24mm Watchman device in the left atrial appendage. Patient tolerated the procedure without post-op complications. No thrombus was identified in the pre-/intra-op LETA. Postoperatively, chest x-ray is negative for any acute process. Post-op echo did not show a pericardial effusion. Patient ambulated without any difficulty, and heart rate and blood pressure are stable. Right groin suture removed by this MOLD BREAKER. No infection, bleeding, or hematoma. Dermabond applied and intact. Patient was provided with post-Watchman discharge instructions. Patient is to follow up with PCP and light rail transit operator in 1 to 2 weeks post discharge. Patient is to follow up with light rail transit operator for the 45-day LETA, and for anticoagulation recommendation. Patient is to continue Eliquis for 6 weeks, then transition to aspirin and Plavix. Duration of aspirin is lifelong. Duration of Plavix is 6 months post 45-day LETA. Post-Watchman discharge instructions given to the patient who verbalized understanding, and patient was instructed to report any complaints of chest pain , shortness of breath, lightheadedness, or dizziness to the light rail transit operator. Dispo: It is medically necessary that patients undergoing percutaneous left atrial appendage occlusion are admitted as an inpatient. This patient had a recovery that was earlier than expected and can be discharged today. Med Rec PCP PCP: PCP: Manuel Gandhi MD Med Rec Discharge meds: Continue taking these medications: ATORVASTATIN (LIPITOR) 40 MG TAB 40 MILLIGRAM ORAL BEDTIME. Comments: TAKES AT 8037-9532 DOXAZOSIN (CARDURA) 2 MG TAB 2 MILLIGRAM ORAL BEDTIME. Comments: TAKES 4158-5125 ASPIRIN (ASPIRIN) 81 MG TAB.CHEW 81 MILLIGRAM [...] (ANORO ELLIPTA 62.5-25 MCG INH) 62.5 MCG-25 MCG/ ACTUATION INHALER 1 PUFF INHALATION RT - DAILY. [...] ORAL THREE TIMES A DAY. [INSULIN PEN] Objective VS/I O Last Documented: Result Date Time O2 Delivery Simple mask 01/30 113 O2 Flow Rate 14 01/30 1135 Temp 36.5 01/30 1118 Pulse Ox 96 01/30 09 B/P 138/65 01/30 0901 Pulse 69 01/30 0901 Resp 16 01/30 0901 PATIENT WEIGHT: Weight (lb): 216 Weight (oz): 14.96 Weight (kg): 98.400 General appearance: alert, awake, oriented Cardiovascular: regular rate rhythm Respiratory: clear to auscultation, no distress GI: soft, non-tender Extremities: moves all Neuro/FLOOR COVERING LAYER: alert, oriented X 3 Skin: dry Wound/incision: Location: Right groin suture removed by this MOLD BREAKER. No infection, bleeding, or hematoma. Dermabond applied and intact. Results Findings/Data: Laboratory Tests: 01/30 01/30 01/30 1123 1047 0838 Chemistry POC Glucose (70 - 110 MG/DL) 140 H 134 H Coagulation Activated Coag Time (74 - 137 SEC) 263 H Treatments Procedures Treatments Procedures: Left atrial appendage closure using 24 mm Watchman FLX closure device. Imaging: Recent Impressions: RADIOLOGY - XR CHEST 2 V 01/28 1311 Report Impression - Status: SIGNED Entered: 01/28/2023 1349 IMPRESSION: No acute cardiopulmonary findings. Impression By: Altagracia Marroquin M.D. Discharge Instructions PCP PCP: PCP: Manuel Gandhi MD )( Discharge to: Home/Self Care Discharge Instructions Additional Discharge Routines: Attending Follow-Up )( Diet: Cardiac )( Activity: As Tolerated Follow-up Appointments Attending Physician: Attending Physician: Raoul Dailey MD Attending physician follow up timeframe: In 1-2 weeks Mickey Briggs 01/30/23 1716: Attestations Physician Attestation Agree w/findings plan: I have seen the pt, I Agree with the findings and plan as documented by Wade Altman. at 1529 at 1717 RPT #:[id number] END OF REPORT [facility] 2023-01-30 11:28:00 [id number] [place] [address] PATIENT NAME: ROBE RITCHIE JR ADMIT DATE: 01/30/23 ACCOUNT NO: [id number] ROOM NO: [facility] AGE: 77 REPORT TYPE: eELECTROCARDIOGRAM REPORT SEX: M ADMITTING PHYSICIAN:Raoul Dailey MD ATTENDING PHYSICIAN:Mickey Briggs MD Order: [id number] Test Reason : S/P WATCHMAN Test Date/Time Stamp: SatJan 30 2023 11:28:33 Blood Pressure : / mmHG Vent. Rate : 070 BPM Atrial Rate : 037 BPM P-R Int : 000 ms QRS Dur : 190 ms QT Int : 466 ms P-R-T Axes : 000 -79 097 degrees QTc Int : 503 ms Ventricular-paced rhythm with occasional premature ventricular complexes Abnormal ECG PRE_OP Confirmed by OPAL CERVANTES MD ([id number]) on 01/30/2023 7:16:23 PM Referred By: Raoul Raslan Confirmed by:OPAL CERVANTES MD at 1916 PATIENT NAME: ROBE RITCHIE JR [facility] 2023-01-30 10:59:00 [id number] [address] PATIENT NAME: ROBE RITCHIE JR ADMIT DATE: 01/30/23 ACCOUNT NO: [id number] ROOM NO: [facility] AGE: 78 REPORT TYPE: OPERATIVE REPORT SEX: M ADMITTING PHYSICIAN:Raoul Dailey MD ATTENDING PHYSICIAN:Mickey Briggs MD OPERATION DATE: 01/30/2023 PREOPERATIVE DIAGNOSIS: POSTOPERATIVE DIAGNOSIS: PROCEDURE PERFORMED: Left atrial appendage closure using 24 mm Watchman FLX closure device. SURGEON: Raoul Dailey MD AUTO TECHNICIAN: ANESTHESIA: INDICATION: Atrial fibrillation, intolerance of anticoagulants and high risk of stroke. ACCESS: Right femoral vein, 16-Vietnamese closed with [id number]-ib-cvyhp suture. COMPLICATIONS: None. BLEEDING: Less than 50 mL PROCEDURE IN DETAIL: After risks, benefits and alternatives were explained, the patient agreed to proceed and signed informed consent. The patient was brought into the cardiac Catheterization Laboratory, prepped and draped in sterile fashion. Then anesthesia was applied and LETA probe was inserted by anesthesia team and there was no thrombus in the appendage as such I used a micropuncture kit with ultrasound guidance and accessed right femoral vein and then placed 8-Vietnamese [place] sheath. Gave partial dose of heparin and then upgraded to 16-Vietnamese Cook sheath and took SL1 sheath into the SVC over a wire and then the Nabb needle inside that descended into the interatrial [...] Watchman sheath over it into the appendage and performed appendage angiogram and determined 24 mm device [...] all the way to the appendage and secured in place and then under fluoroscopy and LETA guidance, the Watchman was deployed successfully. PASS criteria were evaluated and met and then device was released in position. Subsequently removed the Watchman sheath and delivery system inside of it and then removed the 16-Vietnamese Cook sheath and applied a [id number]-as-gxazb suture for closure with good hemostasis. The patient tolerated the procedure very well and was transferred to recovery in stable condition. CONCLUSION: Successful left atrial appendage closure using 24 mm Watchman FLX closure device. Dictated By: Raoul Dailey MD Date Dictated: 01/30/2023 10:59:18 Date Transcribed: 01/30/2023 13:19:45 /TAMMIE Receipt ID: [id number] Authenticated by Raoul Dailey MD On 04/30/2023 10:54:12 AM at 1054 PATIENT NAME: ROBE RITCHIE JR [facility] 2023-01-28 11:52:00 [id number] [address] PATIENT NAME: ROBE RITCHIE JR ADMIT DATE: ACCOUNT NO: [id number] ROOM NO: AGE: 77 REPORT TYPE: eELECTROCARDIOGRAM REPORT SEX: M ADMITTING PHYSICIAN:Raoul Dailey MD ATTENDING PHYSICIAN:Raoul Dailey MD Order: [id number] Test Reason : PREOP Test Date/Time Stamp: SatJan 28 2023 11:52:40 Blood Pressure : / mmHG Vent. Rate : 075 BPM Atrial Rate : 086 BPM P-R Int : 000 ms QRS Dur : 186 ms QT Int : 478 ms P-R-T Axes : 000 263 104 degrees QTc Int : 533 ms Sinus rhythm with complete heart block and Ventricular-paced rhythm with frequent premature ventricular complexes Abnormal ECG PRE_OP Confirmed by OPAL CERVANTES MD ([id number]) on 01/28/2023 4:15:17 PM Referred By: Raoul Dailey Confirmed by:OPAL CERVANTES MD at 1615 PATIENT NAME: ROBE RITCHIE JR [facility] 2022-11-06 10:30:00 [facility] Hospitalist Discharge Summary REPORT#:[id number] REPORT STATUS: Signed DATE:11/06/22 TIME: 1030 PATIENT: ROBE RITCHIE JR UNIT #: [id number] ROOM/BED: [place] [id number] : 43 AGE: 77 SEX: M ATTEND: Kristina Hodge MD ADM AUTHOR: Lis Benson MD * ALL edits or amendments must be made on the electronic/computer document * General Information Date of admission: Observation Start Date: Date of admission: 10/31/22 Discharge date: 11/06/22 Admission diagnosis: atrial thrombus afib bradycardia SSS DM HTN CKD parkinson's disease Hx of bleeding 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 HTN CKD parkinson's disease Hx of bleeding Hospital course: atrial thrombus afib bradycardia SSS DM HTN CKD parkinson's disease Hx of bleeding atrial thrombus /afib/ bradycardia tele HR -- 40 -- manage as cardiology hematology consult -- longterm AC start eliuis now DM-- hold metformin [...] Consultants: cardiology, nephrology Free Text DxA P Notes Free text DxA P notes: atrial thrombus afib bradycardia SSS DM HTN CKD parkinson's disease Hx of bleeding atrial thrombus /afib/ bradycardia tele HR -- 40 -- manage as cardiology hematology consult -- watermelon inspector AC start eliuis now DM-- hold metformin [...] bradycrdiac --pacemaker -- AM Med Rec Med Rec Discharge meds: Stop taking the following medications: FUROSEMIDE (LASIX) 40 MG TAB 20 MILLIGRAM ORAL DAILY. as needed for EDEMA hydrALAZINE (APRESOLINE) 25 MG TAB 25 MILLIGRAM ORAL THREE TIMES A DAY. LISINOPRIL (ZESTRIL) 40 MG TAB 20 MILLIGRAM ORAL DAILY. AMIODARONE (PACERONE) 200 MG TAB 200 MILLIGRAM ORAL DAILY. Continue taking these medications: ATORVASTATIN (LIPITOR) 40 MG TAB 40 MILLIGRAM ORAL BEDTIME. Comments: TAKES AT [id number] DOXAZOSIN (CARDURA) 2 MG TAB 2 MILLIGRAM ORAL BEDTIME. Comments: TAKES 7757-8790 ASPIRIN (ASPIRIN) 81 MG TAB.CHEW 81 MILLIGRAM [...] (ANORO ELLIPTA 62.5-25 MCG INH) 62.5 MCG-25 MCG/ ACTUATION INHALER 1 PUFF INHALATION RT - DAILY. [PREVAGEN EXT STRENGT] 1 ORAL DAILY. [BALANCE FRUIT] 3 TABLET ORAL DAILY. [BALANCE VEGGIES] 3 TABLET ORAL DAILY. [MINERALS IMMUNO 150] 3 TABLET ORAL DAILY. UBIDECARENONE (CO Q-10) (Unknown Strength) CAP Unknown Dose ORAL DAILY. DOCUSATE SODIUM (COLACE) 100 MG CAP 100 MILLIGRAM ORAL DAILY. Start taking the following new medications: DOXYCYCLINE MONOHYDRATE (MONODOX) 100 MG CAP 100 MILLIGRAM ORAL EVERY 12 HOURS. Qty = 8 No Refills FUROSEMIDE (LASIX) 40 MG TAB 40 MILLIGRAM ORAL DAILY. Qty = 30 No Refills APIXABAN (ELIQUIS) 5 MG TAB 5 MILLIGRAM ORAL TWICE DAILY. Qty = 60 No Refills METOPROLOL TARTRATE (LOPRESSOR) 25 MG TAB 25 MILLIGRAM ORAL TWICE DAILY. Qty = 60 No Refills Objective VS/I O Last Documented: Result Date Time Pulse Ox [...] Output, Urine 700 General appearance: alert, awake, oriented Head/Eyes: atraumatic, normal conjunctiva/sclera, normal eyelids/periorb., normocephalic Neck: full range of motion, non-tender, no JVD Cardiovascular: bradycardic, normal heart sounds Respiratory: aerating well, clear to auscultation Abdomen: non-tender, normal bowel sounds, soft, no distention Extremities: moves all, no calf tenderness, no edema Neuro/FLOOR COVERING LAYER: alert, oriented X 3, CNII-XII intact, normal speech, no motor deficits, no sensory deficits Skin: dry, intact Results Findings/Data: Laboratory Tests: 11/06 11/06 11/05 11/05 0811 0540 [...] (Auto) (14.0 - 32.0 %) 13.3 L [place] % (Auto) (4.8 - 9.0 %) 8.7 Eos % (Auto) (0.3 - 3.7 %) 5.1 H Baso % (Auto) (0.0 - 2.0 %) 0.8 Neut # (Auto) (2.0 - 7.6 x10 3/uL) 4.35 Lymph # (Auto) (1.0 - 3.8 x10 3/uL) 0.81 L [place] # (Auto) (0.1 - 0.8 x10 3/uL) [...] - 0.1 x10 3/uL) 0.00 Discharge Instructions PCP Discharge to: Home/Self Care Additional Discharge Routines: PCP Follow-Up, Fish Liver Sorter Follow-Up Diet: Cardiac Activity: As Tolerated Follow-up Appointments PCP follow-up: PCP: Manuel Gandhi MD PCP follow up timeframe: In 1-2 weeks Special instructions: CALL TO SCHEDULE APPOINTMENT Attending Physician: Attending Physician: Kristina Hodge MD Consulting provider 1: Provider 1: Mickey Briggs MD Specialty: CardiologyInterventional Consult follow up timeframe: In 2-3 weeks Special instructions: CALL TO SCHEDULE APPOINTMENT Consulting provider 2: Provider 2: Aramis Thomas MD Specialty: CARDIOLOGY ELECTROPHYSIOLOGY Follow up timeframe: In 1-2 weeks Special instructions: CALL TO SCHEDULE APPOINTMENT Consulting provider 3: Provider 3: Sherly Gomes MD Specialty: NEPHROLOGY Follow up timeframe: ADVISED Special instructions: CALL TO SCHEDULE APPOINTMENT Consulting provider 4: Provider 4: Taylor Lowery MD Specialty: PULMONARY Follow up timeframe: IF ADVISED Quality: Discharge Current Medications Current medication review: Current Medications Sig/Denice Start time [...] .STK-MED ONE 10/31 07 DC IV Rocuronium [place] 0 .STK-MED ONE 10/31 07 DC IV Heparin Sodium 0 .STK-MED ONE 10/31 0658 DC 10/31 .ROUTE 0751 Heparin Sodium/ 2,000 ML .STK-MED ONE 10/31 0558 DC 10/31 Sodium Chloride IV 0751 Heparin Sodium/ 500 ML .STK-MED ONE 10/31 657 DC 10/31 Sodium Chloride IV 0751 Bupivacaine HCl 0 .STK-MED ONE 10/31 06 DC .ROUTE Acetaminophen 0 .STK-MED ONE 10/31 [...] 10/29 1145 DC IV 11/28 1144 Home Medications: ATORVASTATIN (LIPITOR) 40 MG PO BEDTIME DOXAZOSIN (CARDURA) [...] best of my knowledge. at 1039 RPT #:[id number] END OF REPORT [facility] 2022-11-06 09:18:00 [facility] Cardiology Progress Note REPORT#:[id number] REPORT STATUS: Signed DATE:11/06/22 TIME: 917 PATIENT: ROBE RITCHIE UNIT #: [id number] ROOM/BED: [place] [id number] : 43 AGE: 77 SEX: M ATTEND: Kristina Hodge MD ADM AUTHOR: Cynthia Silver * ALL edits or amendments must be made on the electronic/computer document * Subjective Comments: s/p PPM, doing well. Objective General VS/I O: 24 hour I O ending at 0700: [...] 132/74 0.0 90 PATIENT WEIGHT: Weight (lb): 212 Weight (oz): 3.82 Weight (kg): 96.270 Medications: Active Meds + DC'd Last 24 Hrs Doxycycline Monohydrate (DOXYCYCLINE MONOHYDRATE) 100 MG Q12HR PO Ferric Sodium Gluconate Complex (FERRLECIT) 125 MG DAILY IV Sodium Chloride (SODIUM CHLORIDE 0.9%) 100 ML Fentanyl Citrate (SUBLIMAZE) 0 .STK-MED ONE .ROUTE (DC) [...] (DC) Sodium Chloride (SODIUM CHLORIDE 0.9%) 100 ML Furosemide (LASIX) 40 MG BID 9A 5P PO [...] 0.9%) 250 ML ASDIR PRN IV Physical Exam General appearance: alert, awake, oriented Head/Eyes: atraumatic ENT: moist mucosal membranes Neck: non-tender, no JVD Cardiovascular: CV assessment: regular rate and rhythm, no murmur Respiratory: decreased breath sounds, no distress Abdomen: soft, non-tender Genitourinary: no flank pain, no urinary catheter Upper extremity: UE assessment: normal temperature Lower extremity: LE assessment: edema Musculoskeletal: normal inspection Neuro/FLOOR COVERING LAYER: alert, oriented X 3, normal speech Skin: dry, some erythema of BLE Wound/incision: Location: Left upper chest covered with dressing Psychiatry: normal affect, normal mood Results Findings/Data: Laboratory Tests 11/06 11/06 11/05 11/05 0811 0540 [...] (Auto) (14.0 - 32.0 %) 13.3 L [place] % (Auto) (4.8 - 9.0 %) 8.7 Eos % (Auto) (0.3 - 3.7 %) 5.1 H Baso % (Auto) (0.0 - 2.0 %) 0.8 Neut # (Auto) (2.0 - 7.6 x10 3/uL) 4.35 Lymph # (Auto) (1.0 - 3.8 x10 3/uL) 0.81 L [place] # (Auto) (0.1 - 0.8 x10 3/uL) [...] Magnesium (1.80 - 2.40 mg/dL) 2.03 Radiology data: Recent Impressions: RADIOLOGY - XR CHEST 1 V 11/05 1408 Report Impression - Status: SIGNED Entered: 11/05/2022 1533 IMPRESSION: Bilateral multifocal airspace opacities may represent developing pneumonia. Small right pleural effusion. Impression By: [email or web address] - Brady Santizo M.D. Telemetry Interpretation: paced Diagnosis, Assessment Plan Problem List/A P: 1. Atrial fibrillation 2. KRISTI (acute kidney injury) 3. Hx of CABG 4. Diastolic CHF Plan discussed with: patient, nurse Free Text DxA P Notes Free Text DxA P Notes: 77 YO male with PMHx of CAD s/p [...] Chronic atrial fibrillation - with SSS s/p PPM Watchman halted due to left atrial thrombus 11/05/22: s/p SJ PPM start metoprolol artrate 25 mg BID no need for amiodarone since this is chronic afib resume Eliquis 48 post PPM which will be on 11/07/22 2. Left atrial thrombus resume Eliquis tomorrow repeat Echo in a month to eval LA clot 3. KRISTI on CKD unclear baseline kidney function creatinine 3.4->3.0->3.1 ->3.4->3->2.5 Nephrology following On Lasix 40 mg IV twice daily 4. Acute on chronic diastolic CHF Echo with normal EF, mild BNP 295 Diuresis per nephrology, currently on PO Lasix 40 mg bid 5. CAD with prior 3V CABG continue ASA, statin, add BB 6. Lower extremity edema d/t fluid overload diuresis per nephro LE venous doppler no DVT 7. Hypertension normotensive hold ACEI/ARBs d/t KRISTI start Metoprolol tartrate 25 mg BID 8. History of GIB bleed hgb 9.2->9->9.4-> 9.1-> 9.3->9.6 9. CXR showed RLL opacity/pleural effusion WBC normal, no fever on PO Lasix s/p rt thoracentesis 1.2 L (11/02) per Deon Cao to DUSTY from cardiology Outpatient follw-up with Dr. Dailey next week Discharge meds discharged indepth with patient at 1529 at 233 RPT #:[id number] END OF REPORT [facility] 2022-11-06 08:23:00 [facility] ([facility]) Progress Note REPORT#:[id number] REPORT STATUS: Signed DATE:11/06/22 TIME: 822 PATIENT: ROBE RITCHIE JR UNIT #: [id number] ROOM/BED: [place] [id number] : 43 AGE: 77 SEX: M ATTEND: Kristina Hodge MD ADM AUTHOR: Wade AltmanP * ALL edits or amendments must be made on the electronic/computer document * Wade Altman 11/06/22 0823: Objective General VS/I O Last Documented: Result Date Time Pulse Ox [...] Output, Urine 700 PATIENT WEIGHT: Weight (lb): 212 Weight (oz): 3.82 Weight (kg): 96.270 Medications: Active Meds + DC'd Last 24 Hrs Doxycycline Monohydrate (DOXYCYCLINE MONOHYDRATE) 100 MG Q12HR PO Ferric Sodium Gluconate Complex (FERRLECIT) 125 MG DAILY IV Sodium Chloride (SODIUM CHLORIDE 0.9%) 100 ML Fentanyl Citrate (SUBLIMAZE) 0 .STK-MED ONE .ROUTE (DC) [...] (DC) Sodium Chloride (SODIUM CHLORIDE 0.9%) 100 ML Furosemide (LASIX) 40 MG BID 9A 5P PO [...] 0.9%) 250 ML ASDIR PRN IV Physical Exam General appearance: alert, awake, oriented Cardiovascular: CV assessment: regular rate and rhythm, no murmur Respiratory: on oxygen, no distress Abdomen: soft, non-tender Extremities: moves all Neuro/FLOOR COVERING LAYER: alert, oriented X 3 Skin: dry Wound/incision: Location: PPM site clean, dry; no sign of infection Findings/Data: Laboratory Tests: 11/06 11/05 11/05 0540 1859 1636 Chemistry POC Glucose (70 - 110 MG/DL) 101 121 H 122 H Recent Impressions: RADIOLOGY - XR CHEST 1 V 11/05 1408 Report Impression - Status: SIGNED Entered: 11/05/2022 1533 IMPRESSION: Bilateral multifocal airspace opacities may represent developing pneumonia. Small right pleural effusion. Impression By: [email or web address] - Brady Santizo M.D. Diagnosis, Assessment Plan Free Text A P: 1. Bradycardia -currently VPaced 70 -s/p PPM implantation per () -monitored overnight -hemodynamically stable -PPM site clean, dry; no sign of infection -device interrogation completed; normal function -CXR: no pneumothorax -L arm sling in place -instructions given for wound care, mobility, driving, and moisture -Rx: minocycline 100mg bid x5 days -no lovenox or heparin post-op -resume AC eliquis 48hrs post-op -ok to d/c from EP standpoint; outpt f/u, , 2 weeks 2. Afib -s/p aborted attempt for LAAO via WATCHMAN per -s/p LETA, [place] thrombus -no AA therapy -AC eliquis 3. CHF -per cardio, LVEF nml Consultants: cardiology, nephrology at 1134 at 2[address] [facility] #:[id number] END OF REPORT [facility] 2022-11-06 08:05:00 [facility] ([facility]) Nephrology Progress Note REPORT#:[id number] REPORT STATUS: Signed DATE:11/06/22 TIME: 08 PATIENT: ROBE RITCHIE JR UNIT #: [id number] ROOM/BED: [place] [id number] : 43 AGE: 77 SEX: M ATTEND: Kristina Hodge MD ADM AUTHOR: Sherly Gomes MD * ALL edits or amendments must be made on the electronic/computer document * Subjective Chief complaint: For watchman device HPI: Patient seen and evaluated, discussed with care team, 77-year-old male with history of diabetes mellitus, hypertension, hyperlipidemia, chronic kidney disease followed by [facility] in [place] and [facility] [place] who presented for watchman's [...] management of his elevated BUN and creatinine. Patient reports: Yes: complaints. Comments: Patient seen and evaluated, HPI no change from initial, feels okay. Review of Systems Constitutional: Reports: fatigue. Denies: chills, fever. Skin: Reports: swelling. Denies: rash. Allergy/Immun: Denies: hives, itching. Eyes: Denies: redness, discharge. ENT: Denies: ear drainage, ear ringing. Respiratory: Denies: hemoptysis, SOB. Cardiovascular: Denies: chest pain. Objective General VS/I O: Vital Signs: Date Time Temp Pulse Resp [...] Output, Urine 700 PATIENT WEIGHT: Weight (lb): 212 Weight (oz): 3.82 Weight (kg): 96.270 Medications Active Meds + DC'd Last 24 Hrs Doxycycline Monohydrate (DOXYCYCLINE MONOHYDRATE) 100 MG Q12HR PO Ferric Sodium Gluconate Complex (FERRLECIT) 125 MG DAILY IV Sodium Chloride (SODIUM CHLORIDE 0.9%) 100 ML Fentanyl Citrate (SUBLIMAZE) 0 .STK-MED ONE .ROUTE (DC) [...] (DC) Sodium Chloride (SODIUM CHLORIDE 0.9%) 100 ML Furosemide (LASIX) 40 MG BID 9A 5P PO [...] 0.9%) 250 ML ASDIR PRN IV Physical Exam General appearance: alert, no acute distress Head/eyes: atraumatic, normocephalic ENT: normal nose Neck: non-tender, supple/no meningismus Cardiovascular: normal heart sounds, no rub Respiratory: aerating well, symmetric expansion Abdomen: non-tender, soft Genitourinary: no flank pain, no urinary catheter Extremities: pitting edema, non-tender Musculoskeletal: no CVA tenderness, no tenderness Neuro/FLOOR COVERING LAYER: alert, normal speech Skin: dry, intact Results Findings/Data: Laboratory Tests 11/06 11/05 11/05 11/05 11/05 0540 [...] (14.0 - 32.0 %) 12.0 L 16.3 [place] % (Auto) (4.8 - 9.0 %) 7.4 8.6 Eos % (Auto) (0.3 - 3.7 %) 3.9 H 8.2 H Baso % (Auto) (0.0 - 2.0 %) 0.6 1.1 Neut # (Auto) (2.0 - 7.6 x10 3/uL) 7.12 3.05 Lymph # (Auto) (1.0 - 3.8 x10 3/uL) 1.13 0.76 L [place] # (Auto) (0.1 - 0.8 x10 3/uL) [...] 2134 Occult Blood - COMP STOOL Recent Impressions: RADIOLOGY - XR CHEST 1 V 11/05 1408 Report Impression - Status: SIGNED Entered: 11/05/2022 1533 IMPRESSION: Bilateral multifocal airspace opacities may represent developing pneumonia. Small right pleural effusion. Impression By: [email or web address] - Brady Santizo M.D. Laboratory Tests 11/06 11/05 11/05 0540 8679 1636 Chemistry POC Glucose (70 - 110 MG/DL) 101 121 H 122 H Diagnosis, Assessment Plan Free Text A P: Patient seen and evaluated, discussed with care team, images and laboratories reviewed. History of hypertension: On doxazosin/hydralazine and lisinopril: We will hold lisinopril: Multiple pressure closely and adjust medications as needed History of diabetes mellitus: On Farxiga at, will DC due to low GFR. History of hyperlipidemia History of A. fib: On amiodarone, presented for watchman's device, however LETA showed atrial thrombus, procedure was aborted and patient will receive anticoagulation with Eliquis. 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 Possible acute kidney injury component, will check urinalysis, check urine protein creatinine ratio, check renal bladder ultrasound. Shortness of breath with lower extremity edema: We will give Lasix 60 mg IV every 8 hours x3 doses. 11/01/2022 laboratories this morning not done yet, will check results when available, will give 3 more doses of IV Lasix 60 mg every 8 hours. Sodium 139, potassium 5, CO2 24, BUN 63, creatinine 3 down from 3.4 improving, hemoglobin 9, platelet 179, blood count 5.4 11/02/2022 laboratory this morning showed hemoglobin 9.4, platelet 181, blood count 5.1, sodium 138, potassium 4.9, CO2 25, BUN 68, creatinine 3.1 relatively stable, will give 3 more doses of IV Lasix 40 mg every 8 hours, iron saturation 6.3%, ferritin 34, will give Ferrlecit 125 mg IV daily for 8 doses 11/03/2022 laboratory this morning showed sodium 137, potassium 5.1, CO2 24, BUN 70, creatinine 3.4 up from 3.1, phosphorus 6.1 we will start PhosLo 1 p.o. with each meal, hemoglobin 9.1, platelet 147, blood count 4.5, will start Lasix 40 mg p.o. twice daily, will check fecal occult blood since patient had low iron stores 11/04/2022 laboratory this morning showed sodium 136, potassium 5.1, CO2 21, BUN 63 down from 70, creatinine 3.1 down from 3.4 better, phosphorus 5.5 was started on PhosLo yesterday, hemoglobin 9.3, platelet 174, blood count 4.7, continue Lasix 40 mg p.o. twice daily 11/05/2022 laboratory this morning showed sodium 137, potassium 5, CO2 23, BUN 77 , creatinine 3 down from 3.1, hemoglobin 10, platelet 177, blood count 9.4, output reported 1700 cc. 11/06/2022 weight down to 96 kg, laboratory this morning showed sodium 138, potassium 5, CO2 26, BUN 58, creatinine 2.5 down from 3 continues to improve, hemoglobin 9.6, platelet 166, blood count 6.1 Consultants: cardiology, nephrology at [address] [facility] #:[id number] END OF REPORT [facility] 2022-11-05 16:16:00 [facility] ([facility]) DT Operative Note REPORT#:[id number] REPORT STATUS: Signed DATE:11/05/22 TIME: 1616 PATIENT: ROBE RITCHIE JR UNIT #: [id number] ROOM/BED: [place] [id number] : 43 AGE: 77 SEX: M ATTEND: Kristina Hodge MD ADM AUTHOR: Aramis Thomas MD * ALL edits or amendments must be made on the electronic/computer document * Operative Report Operative Note Note: Permanent pacemaker implantation procedure note Procedure Date: 11/05/2022 Operators: Aramis Thomas MD. Referring: Dr. Mickey Conner MD. Pre-Op Diagnosis: Irreversible symptomatic bradycardia, atrial fibrillation with slow ventricular response. Post-Op Diagnosis: Same. Procedure: 1. Implantation of dual-chamber pacemaker. 2. Left arm venogram. Procedure Summary/Findings: The risks, benefits, alternatives of the device implant with sedation were explained before the procedure. Risks explained include cardiac tamponade, pneumothorax, bleeding, infection, vascular injury, DC, CVA, emergent sternotomy , intubation, . Written informed consent was obtained. The patient was reassessed prior to the procedure, including airway, physical status vitals. The patient was deemed appropriate to proceed with moderate conscious sedation. IV antibiotics were given at the beginning of the procedure as standard protocol. Moderate conscious sedation was provided under my direct supervision by an independent sedation-trained nurse who monitored the patient vitals throughout the procedure. About 45 minutes were spent directly [...] technique with micropuncture technique under fluoroscopic guidance and a wire was advanced to the inferior vena [...] great injury confirming adequate numbers on interrogation. BELIZEAN showed septal position of the lead. Next [...] diaphragmatic stimulation. Optimal lead slack was confirmed. The leads were secured to the muscle with Ethibond. [...] the procedure, fluoroscopy revealed good lead position with no pneumothorax or retained sponges, and a normal heart border on BELIZEAN view. The patient tolerated the procedure well and was returned to a telemetry bed in stable condition. Device: [employer] Model [id number], Serial # [id number] RA: Model 2088TC/46, Serial # [id number]. RV: Model 1948/52, Serial # [id number]. P wave: 1.4 mV A.fib RA pacing impedance: 460 ohms RA threshold: A fib R wave: 7.4 mV RV pacing impedance: 460 ohms RV threshold: 0.5 V @ 0.4 ms Settings: DDD 60/120 Estimated Blood Loss: Minimal Blood Administered: None Grafts or Implants: Device as above Any Specimen Removed: None Complications: None Anesthesia: Moderate conscious sedation Medications: Versed, Fentanyl, Ancef Conclusion: 1. Successful implantation of a dual-chamber pacemaker 2. No apparent immediate complications Post-Procedure Plan: 1. _Observe patient overnight as outpatient with extended recovery. 2. Bedrest for 6 hours. 3. Resume cardiac diet. 4. EKG after procedure. 5. Portable CXR now 2-view CXR tomorrow morning if possible. 6. Device interrogation tomorrow morning. 7. Hold anticoagulants x 48 hours. 8. Pain control: Tylenol Tylenol #3 as needed. 9. Antibiotics: Minocycline 100mg BID x7 days. 10. Follow-up in 2 weeks in EP Clinic. Device/Wound Care Instructions: 1. Keep wound completely dry for at least 1 week. 2. Not to elevate device-side arm past horizontal for at least 2 weeks. 3. Use sling for at least 2 weeks. 4. No lifting over 10 lbs with device arm for 2 weeks. 5. Remove dressings the day after procedure. Can re-apply fresh dressing as needed. 6. Do not remove Steri-strips or glue. They will come off by itself. 7. No driving until follow-up. at 1619 RPT #:[id number] END OF REPORT [facility] 2022-11-05 14:59:00 [facility] Pulmonology Progress Note REPORT#:[id number] REPORT STATUS: Signed DATE:11/05/22 TIME: 1459 PATIENT: ROBE RITCHIE UNIT #: [id number] ROOM/BED: [place] [id number] : 43 AGE: 77 SEX: M ATTEND: Kristina Hodge MD ADM AUTHOR: Ricky Lassiter MD * ALL edits or amendments must be made on the electronic/computer document * Subjective Chief complaint: No acute events overnight This morning had pacemaker placement Doing well postprocedure on room air Review of Systems ROS Constitutional: Denies: fatigue, fever, lethargy. Respiratory: Denies: hemoptysis, pleuritic pain, pneumonia. Cardiovascular: Denies: GONZALEZ (dyspnea on exertion), palpitations, parox nocturnal dyspnea. GI: Denies: anorexia, diarrhea, hematochezia. Heme: Denies: adenopathy, bleeding, bruising, petechiae, other. Objective General VS/I O: Last Documented: Result Date Time Pulse Ox 98 11/05 719 B/P 133/52 11/05 719 B/P Mean 78.9 11/05 719 Temp 36.6 11/05 719 Pulse 44 11/05 0720 Resp 20 11/05 719 O2 Delivery Room air 11/05 599 O2 Flow Rate 2 11/02 2044 24 hour I O ending at 0700: 11/05 0700 11/04 1900 Intake Total 100.00 Output Total 1700 Balance -1700 100.00 Intake, IV 100.00 Output, Urine 1700 PATIENT WEIGHT: Weight (lb): 220 Weight (oz): 7.4 Weight (kg): 100.000 Medications: Active Meds + DC'd Last 24 Hrs Ferric Sodium Gluconate Complex (FERRLECIT) 125 MG DAILY IV Sodium Chloride (SODIUM CHLORIDE 0.9%) 100 ML Fentanyl Citrate (SUBLIMAZE) 0 .STK-MED ONE .ROUTE (DC) [...] (DC) Sodium Chloride (SODIUM CHLORIDE 0.9%) 100 ML Furosemide (LASIX) 40 MG BID 9A 5P PO [...] 0.9%) 250 ML ASDIR PRN IV Physical Exam General appearance: alert, awake, oriented, no acute distress, pleasant, conversational, mental status normal, no respiratory distress Head/eyes: atraumatic, normocephalic, PERRL, PERRLA Neck: full range of motion, non-tender Cardiovascular: normal heart sounds, normal S1/S2, regular rate rhythm, no murmur, no rub, no gallop Respiratory/chest: aerating well, clear to auscultation, symmetric expansion, no distress, no tenderness Abdomen: soft, non-tender, no distention, no guarding Extremities: no cyanosis, no edema, no peripheral edema Musculoskeletal: no muscle spasm Neuro/FLOOR COVERING LAYER: alert Results Findings/Data: Laboratory Tests 11/05/22 0510: [Embedded Image Not Available] Laboratory Tests 11/05 11/05 11/05 11/05 1859 1636 [...] 2.11 Laboratory Tests 11/05 0510 Coagulation PTT (Carteret) (25.0 - 39.5 Seconds) 37.5 Laboratory Tests [...] (Auto) (14.0 - 32.0 %) 12.0 L [place] % (Auto) (4.8 - 9.0 %) 7.4 Eos % (Auto) (0.3 - 3.7 %) 3.9 H Baso % (Auto) (0.0 - 2.0 %) 0.6 Neut # (Auto) (2.0 - 7.6 x10 3/uL) 7.12 Lymph # (Auto) (1.0 - 3.8 x10 3/uL) 1.13 [place] # (Auto) (0.1 - 0.8 x10 3/uL) [...] Serology SARS-CoV-2 Ag (Rapid) (Negative) Negative Radiology data: Recent Impressions: RADIOLOGY - XR CHEST 1 V 11/05 1408 Report Impression - Status: SIGNED Entered: 11/05/2022 1533 IMPRESSION: Bilateral multifocal airspace opacities may represent developing pneumonia. Small right pleural effusion. Impression By: [email or web address] Agus Santizo M.D. Diagnosis, Assessment Plan Free Text A P: Impressions: 1. Pleural effusion #2 pulmonary edema #3 CHF exacerbation #4 CKD #5 atrial thrombosis #6 history of GI bleed Recommendations: On room air saturating well Status post pacemaker placement Postprocedure chest x-ray reviewed no consolidations, mild atelectasis Thoracentesis 1.2 L drained DVT prophylaxis Full code Consultants: cardiology, nephrology at 2033 RPT #:[id number] END OF REPORT [facility] 2022-11-05 11:42:00 [facility] ([facility]) Juanjose/Oncology Progress Note REPORT#:[id number] REPORT STATUS: Signed DATE:11/05/22 TIME: 1142 PATIENT: ROBE RITCHIE UNIT #: [id number] ROOM/BED: [place] [id number] : 43 AGE: 77 SEX: M ATTEND: Kristnia Hodge MD ADM AUTHOR: Carlos Alberto Barfield MD * ALL edits or amendments must be made on the electronic/computer document * Subjective Chief Complaint: For PPM placement today- eliquis on hold Objective Physical Exam VS: Vital Signs Date Temp Pulse Resp B/P B/P Mean Pulse Ox FiO2 11/04-11/05 36.3-36.6 38-47 16-20 125-145/50-70 75.0-93.1 94-99 Last Documented: Result Date Time Pulse Ox 98 11/05 0720 B/P 133/52 11/05 0720 B/P Mean 78.9 11/05 0720 Temp 36.6 11/05 0720 Pulse 44 11/05 0720 Resp 20 11/05 0720 O2 Delivery Room air 11/05 0600 O2 Flow Rate 2 11/02 2044 General appearance: alert, awake, oriented HEENT: anicteric, atraumatic Cardiovascular: bradycardia, irregularly irregular Respiratory: crackles, decreased breath sounds Abdomen: non-tender, normal bowel sounds, soft Extremities: pitting edema Neuro/FLOOR COVERING LAYER: alert, oriented X 3 skin dry, intact Psychiatry: normal affect Current Medications Medications: Active Meds + DC'd Last 24 Hrs Hydrocodone Bitart/Acetaminophen (NORCO 5/325) 2 TAB Q4H PRN PRN PO Calcium Acetate (CALCIUM ACETATE) 667 MG C MEALS PO Ferric Sodium Gluconate Complex (FERRLECIT) 125 MG DAILY IV Sodium Chloride (SODIUM CHLORIDE 0.9%) 100 ML Furosemide (LASIX) 40 MG BID 9A 5P PO [...] CHLORIDE 0.9%) 250 ML ASDIR PRN IV Results Findings/Data: Laboratory Tests 11/05/22 0510: [Embedded Image Not Available] Laboratory Tests 11/05 11/05 11/04 11/04 11/04 0558 [...] (Auto) (14.0 - 32.0 %) 12.0 L [place] % (Auto) (4.8 - 9.0 %) 7.4 Eos % (Auto) (0.3 - 3.7 %) 3.9 H Baso % (Auto) (0.0 - 2.0 %) 0.6 Neut # (Auto) (2.0 - 7.6 x10 3/uL) 7.12 Lymph # (Auto) (1.0 - 3.8 x10 3/uL) 1.13 [place] # (Auto) (0.1 - 0.8 x10 3/uL) [...] SARS-CoV-2 Ag (Rapid) (Negative) Negative Diagnosis, Assessment Plan Consultants: cardiology, nephrology Free Text DxA P Notes Free Text DxA P Notes: ASSESSMENT: 1. 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 2. Previous history of anticoagulation with recent GI bleed. Suspect underlying acute iron deficiency anemia. 3. Acute on chronic kidney disease. 4. Acute on chronic diastolic congestive heart failure. 5. History of coronary artery disease status post coronary artery bypass graft. 6. Hypertension. PLAN: -Continue anticoagulation recommendations as per cardiology. Suspect left atrial thrombus secondary to underlying atrial fibrillation. No necessity for hypercoagulable workup. Currently, started on Eliquis 2.5 mg oral twice daily given renal insufficiency- on hold for PPM today -Iron panel with iron deficiency- ferrlecit x 8 ordered- dose 12/26 today- Hb 10 -Nephrology consultation appreciated. Creatinine 3 Currently receiving Lasix 40 mg po BID now -Bilateral lower extremity ultrasound to rule out deep vein thrombosis- negative -Pulm consult and f/u appreciated- s/ rt thoracentesis 1200mL removed 11/02 -Other medical management as per primary team. Stable from heme end. Carlos Alberto Barfield MD at 1144 RPT #:[id number] END OF REPORT [facility] 2022-11-05 08:59:00 [facility] Cardiology Progress Note REPORT#:[id number] REPORT STATUS: Signed DATE:11/05/22 TIME: 08 PATIENT: ROBE RITCHEI UNIT #: [id number] ROOM/BED: [place] [id number] : 43 AGE: 77 SEX: M ATTEND: Kristina Hodge MD ADM AUTHOR: Cynthia Silver * ALL edits or amendments must be made on the electronic/computer document * Subjective Patient reports: No: complaints. Objective General VS/I O: 24 hour I O ending at 0700: [...] 99 Nasal cannula PATIENT WEIGHT: Weight (lb): 220 Weight (oz): 7.4 Weight (kg): 100.000 Medications: Active Meds + DC'd Last 24 Hrs Hydrocodone Bitart/Acetaminophen (NORCO 5/325) 2 TAB Q4H PRN PRN PO Calcium Acetate (CALCIUM ACETATE) 667 MG C MEALS PO Ferric Sodium Gluconate Complex (FERRLECIT) 125 MG DAILY IV Sodium Chloride (SODIUM CHLORIDE 0.9%) 100 ML Furosemide (LASIX) 40 MG BID 9A 5P PO [...] 0.9%) 250 ML ASDIR PRN IV Physical Exam General appearance: alert, awake Head/Eyes: atraumatic ENT: moist mucosal membranes Neck: non-tender, no JVD Cardiovascular: CV assessment: bradycardia, irregularly irregular, no murmur Respiratory: decreased breath sounds, no distress Abdomen: soft, non-tender Genitourinary: no flank pain, no urinary catheter Upper extremity: UE assessment: normal temperature Lower extremity: LE assessment: edema Musculoskeletal: normal inspection Neuro/FLOOR COVERING LAYER: alert, oriented X 3, normal speech Skin: dry, some erythema of BLE Psychiatry: normal affect, normal mood Results Findings/Data: Laboratory Tests 11/05 11/05 11/04 11/04 11/04 0558 [...] 2.11 Laboratory Tests 11/05 0510 Coagulation PTT (Carteret) (25.0 - 39.5 Seconds) 37.5 Laboratory Tests [...] (Auto) (14.0 - 32.0 %) 12.0 L [place] % (Auto) (4.8 - 9.0 %) 7.4 Eos % (Auto) (0.3 - 3.7 %) 3.9 H Baso % (Auto) (0.0 - 2.0 %) 0.6 Neut # (Auto) (2.0 - 7.6 x10 3/uL) 7.12 Lymph # (Auto) (1.0 - 3.8 x10 3/uL) 1.13 [place] # (Auto) (0.1 - 0.8 x10 3/uL) [...] Magnesium (1.80 - 2.40 mg/dL) 2.11 Radiology data: Recent Impressions: RADIOLOGY - XR CHEST 1 V 11/05 1408 Report Impression - Status: SIGNED Entered: 11/05/2022 1533 IMPRESSION: Bilateral multifocal airspace opacities may represent developing pneumonia. Small right pleural effusion. Impression By: [email or web address] - Brady Santizo M.D. Results: labs reviewed, vital signs reviewed Diagnosis, Assessment Plan Free Text DxA P Notes Free Text DxA P Notes: 77 YO male with PMHx of CAD s/p [...] atrial fibrillation - slow A. fib/AFLT. Per EPS. Watchman halted due to left atrial thrombus Hold Eliquis -PPM planned today not on BB, CCB or AA d/t bradycardia continue telemetry - monitor for sick sinus syndrome Repeat Echo in a month to eval LA clot PPM today 2. Left atrial thrombus Eliquis 2.5 mg BID - on hold in prep for Saturday 3. KRISTI on CKD unclear baseline kidney function creatinine 3.4->3.0->3.1 ->3.4->3 Nephrology following On Lasix 40 mg IV twice daily 4. Acute on chronic diastolic CHF Echo with normal EF, mild BNP 295 Diuresis per nephrology, currently on PO Lasix 40 mg bid 5. CAD with prior 3V CABG no BB due to bradycardia continue ASA and statin 6. Lower extremity edema d/t fluid overload diuresis per nephro LE venous doppler no DVT 7. Hypertension normotensive monitor off BP meds hold ACEI/ARBs d/t KRISTI, no BB d/t bradycardia 8. History of GIB bleed hgb 9.2->9->9.4-> 9.1-> 9.3 9. CXR showed RLL opacity/pleural effusion WBC normal, no fever on PO Lasix s/p rt thoracentesis 1.2 L (11/02) per Pulm at 1702 at 2338 RPT #:[id number] END OF REPORT [facility] 2022-11-05 08:55:00 [facility] ([facility]) Clinical Note REPORT#:[id number] REPORT STATUS: Signed DATE:11/05/22 TIME: 0855 PATIENT: ROBE RITCHIE UNIT #: [id number] ROOM/BED: [place] [id number] : 43 AGE: 77 SEX: M ATTEND: Kristina Hodge MD ADM AUTHOR: Dionne Smith APRN * ALL edits or amendments must be made on the electronic/computer document * Clinical Note Note: Chart reviewed, pt out room for procedure. Will see in AM. Labs in AM. at 0855 RPT #:[id number] END OF REPORT [facility] 2022-11-05 07:43:00 [facility] ([facility]) Nephrology Progress Note REPORT#:[id number] REPORT STATUS: Signed DATE:11/05/22 TIME: 07 PATIENT: ROBE RITCHIE JR UNIT #: [id number] ROOM/BED: [place] [id number] : 43 AGE: 77 SEX: M ATTEND: Kristina Hodge MD ADM AUTHOR: Sherly Gomes MD * ALL edits or amendments must be made on the electronic/computer document * Subjective Chief complaint: For watchman device HPI: Patient seen and evaluated, discussed with care team, 77-year-old male with history of diabetes mellitus, hypertension, hyperlipidemia, chronic kidney disease followed by [facility] in [place] and [facility] [place] who presented for watchman's [...] management of his elevated BUN and creatinine. Patient reports: Yes: complaints. Comments: Patient seen and evaluated, HPI no change from initial, feels okay. Review of Systems Constitutional: Reports: fatigue. Denies: chills, fever. Skin: Denies: abrasion, bruising. Allergy/Immun: Denies: hives, itching. Eyes: Denies: redness, discharge. ENT: Denies: ear drainage, ear ringing. Respiratory: Denies: hemoptysis, SOB. Cardiovascular: Denies: chest pain. Objective General VS/I O: Vital Signs: Date Time Temp Pulse Resp B/P B/P Pulse O2 O2 Flow FiO2 Mean Ox Delivery Rate 11/05 0720 36.6 44 20 133/52 78.9 98 11/05 0600 36.6 46 18 125/50 75.0 94 Room air 11/049 36.4 47 16 145/59 87.8 94 Room air 11/04 1955 36.6 44 16 145/67 93.1 94 Room [...] Output, Urine 1700 PATIENT WEIGHT: Weight (lb): 220 Weight (oz): 7.4 Weight (kg): 100.000 Medications Active Meds + DC'd Last 24 Hrs Hydrocodone Bitart/Acetaminophen (NORCO 5/325) 2 TAB Q4H PRN PRN PO Calcium Acetate (CALCIUM ACETATE) 667 MG C MEALS PO Ferric Sodium Gluconate Complex (FERRLECIT) 125 MG DAILY IV Sodium Chloride (SODIUM CHLORIDE 0.9%) 100 ML Furosemide (LASIX) 40 MG BID 9A 5P PO [...] 0.9%) 250 ML ASDIR PRN IV Physical Exam General appearance: alert, no acute distress Head/eyes: atraumatic, normocephalic ENT: normal nose Neck: non-tender, supple/no meningismus Cardiovascular: normal heart sounds, no rub Respiratory: aerating well, symmetric expansion Abdomen: non-tender, soft Genitourinary: no flank pain, no urinary catheter Extremities: pitting edema, non-tender Musculoskeletal: no CVA tenderness, no tenderness Neuro/FLOOR COVERING LAYER: alert, normal speech Skin: dry, intact Results Findings/Data: Laboratory Tests 11/05 11/04 11/04 11/04 11/04 [...] 34.5 Laboratory Tests 11/05 0510 Coagulation PTT (Carteret) (25.0 - 39.5 Seconds) 37.5 Laboratory Tests [...] 32.0 %) 12.0 L 16.3 19.8 17.8 [place] % (Auto) (4.8 - 9.0 %) 7.4 [...] 1.13 0.76 L 0.90 L 0.90 L [place] # (Auto) (0.1 - 0.8 x10 3/uL) [...] 106 Laboratory Tests 11/05 0510 Coagulation PTT (Carteret) (25.0 - 39.5 Seconds) 37.5 Laboratory Tests [...] (Auto) (14.0 - 32.0 %) 12.0 L [place] % (Auto) (4.8 - 9.0 %) 7.4 Eos % (Auto) (0.3 - 3.7 %) 3.9 H Baso % (Auto) (0.0 - 2.0 %) 0.6 Neut # (Auto) (2.0 - 7.6 x10 3/uL) 7.12 Lymph # (Auto) (1.0 - 3.8 x10 3/uL) 1.13 [place] # (Auto) (0.1 - 0.8 x10 3/uL) [...] - 0.1 x10 3/uL) 0.00 Diagnosis, Assessment Plan Free Text A P: Patient seen and evaluated, discussed with care team, images and laboratories reviewed. History of hypertension: On doxazosin/hydralazine and lisinopril: We will hold lisinopril: Multiple pressure closely and adjust medications as needed History of diabetes mellitus: On Farxiga at, will DC due to low GFR. History of hyperlipidemia History of A. fib: On amiodarone, presented for watchman's device, however LETA showed atrial thrombus, procedure was aborted and patient will receive anticoagulation with Eliquis. 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 Possible acute kidney injury component, will check urinalysis, check urine protein creatinine ratio, check renal bladder ultrasound. Shortness of breath with lower extremity edema: We will give Lasix 60 mg IV every 8 hours x3 doses. 11/01/2022 laboratories this morning not done yet, will check results when available, will give 3 more doses of IV Lasix 60 mg every 8 hours. Sodium 139, potassium 5, CO2 24, BUN 63, creatinine 3 down from 3.4 improving, hemoglobin 9, platelet 179, blood count 5.4 11/02/2022 laboratory this morning showed hemoglobin 9.4, platelet 181, blood count 5.1, sodium 138, potassium 4.9, CO2 25, BUN 68, creatinine 3.1 relatively stable, will give 3 more doses of IV Lasix 40 mg every 8 hours, iron saturation 6.3%, ferritin 34, will give Ferrlecit 125 mg IV daily for 8 doses 11/03/2022 laboratory this morning showed sodium 137, potassium 5.1, CO2 24, BUN 70, creatinine 3.4 up from 3.1, phosphorus 6.1 we will start PhosLo 1 p.o. with each meal, hemoglobin 9.1, platelet 147, blood count 4.5, will start Lasix 40 mg p.o. twice daily, will check fecal occult blood since patient had low iron stores 11/04/2022 laboratory this morning showed sodium 136, potassium 5.1, CO2 21, BUN 63 down from 70, creatinine 3.1 down from 3.4 better, phosphorus 5.5 was started on PhosLo yesterday, hemoglobin 9.3, platelet 174, blood count 4.7, continue Lasix 40 mg p.o. twice daily 11/05/2022 laboratory this morning showed sodium 137, potassium 5, CO2 23, BUN 77 , creatinine 3 down from 3.1, hemoglobin 10, platelet 177, blood count 9.4, output reported 1700 cc. Consultants: cardiology, nephrology at 1034 RPT #:[id number] END OF REPORT [facility] 2022-11-04 12:14:00 [facility] ([facility]) Hospitalist Progress Note REPORT#:[id number] REPORT STATUS: Signed DATE:11/04/22 TIME: 1214 PATIENT: ROBE RITCHIE JR UNIT #: [id number] ROOM/BED: [place] [id number] : 43 AGE: 77 SEX: M ATTEND: Kristina Hodge MD ADM AUTHOR: Lis Benson MD * ALL edits or amendments must be made on the electronic/computer document * Subjective Chief complaint: he feel well . no cp no sob pacemaker -- saturday HPI: 77 years old male with PMH of parkinson disease , CAD with CABG, afib , DM , HTN and CKD had watchman placement today . LETA show atrial thrombus . procedure was canceled . 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 he complaint of sob for 2 weeks . he had internal bleeding few weeks ago . xarelto stoped . he is on ASA. no cp no fever no cough no nausea no vomiting Review of Systems Constitutional: Denies: generalized weakness, lethargy. Respiratory: Denies: pneumonia, productive cough (sputum), SOB. Cardiovascular: Denies: chest pain, edema. GI: Denies: abdominal pain, nausea, vomiting. : Denies: flank pain. Neuro: Denies: dizziness. Objective General VS/I O: Vital Signs: Date Time Temp Pulse Resp [...] scale Measurement Method PATIENT WEIGHT: Weight (lb): 220 Weight (oz): 7.4 Weight (kg): 100.000 Medications: Active Meds + DC'd Last 24 Hrs Calcium Acetate (CALCIUM ACETATE) 667 MG C MEALS PO Ferric Sodium Gluconate Complex (FERRLECIT) 125 MG DAILY IV Sodium Chloride (SODIUM CHLORIDE 0.9%) 100 ML Furosemide (LASIX) 40 MG BID 9A 5P PO [...] 0.9%) 250 ML ASDIR PRN IV Physical Exam General appearance: alert, awake, oriented Head/Eyes: atraumatic, normal conjunctiva/sclera, normal eyelids/periorb., normocephalic Neck: full range of motion, non-tender, no JVD Cardiovascular: bradycardic, normal heart sounds Respiratory: aerating well, clear to auscultation Abdomen: non-tender, normal bowel sounds, soft, no distention Extremities: moves all, no calf tenderness, no edema Neuro/FLOOR COVERING LAYER: alert, oriented X 3, CNII-XII intact, normal speech, no motor deficits, no sensory deficits Skin: dry, intact Results Findings/Data: Laboratory Tests 11/04 11/04 11/03 11/03 0804 0450 [...] % (Auto) (14.0 - 32.0 %) 16.3 [place] % (Auto) (4.8 - 9.0 %) 8.6 Eos % (Auto) (0.3 - 3.7 %) 8.2 H Baso % (Auto) (0.0 - 2.0 %) 1.1 Neut # (Auto) (2.0 - 7.6 x10 3/uL) 3.05 Lymph # (Auto) (1.0 - 3.8 x10 3/uL) 0.76 L [place] # (Auto) (0.1 - 0.8 x10 3/uL) [...] Occult Blood - COMP STOOL Diagnosis, Assessment Plan Consultants: cardiology, nephrology Free Text DxA P Notes Free text DxA P notes: atrial thrombus afib bradycardia SSS DM HTN CKD parkinson's disease Hx of bleeding atrial thrombus /afib/ bradycardia tele HR -- 40 -- manage as cardiology hematology consult -- longterm AC start eliuis now DM-- hold metformin [...] AM Quality: Gen Med Crit Care Current Medications Current medication review: Current Medications Sig/Denice Start time [...] .STK-MED ONE 10/31 07 DC IV Rocuronium [place] 0 .STK-MED ONE 10/31 07 DC IV [...] 10/29 1145 DC IV 11/28 1144 Home Medications: ATORVASTATIN (LIPITOR) 40 MG PO BEDTIME DOXAZOSIN (CARDURA) [...] best of my knowledge. at 1757 RPT #:[id number] END OF REPORT [facility] 2022-11-04 09:03:00 [facility] Cardiology Progress Note REPORT#:[id number] REPORT STATUS: Signed DATE:11/04/22 TIME: 09 PATIENT: ROBE RITCHIE JR UNIT #: [id number] ROOM[place]BED: [facility] [place] : 43 AGE: 77 SEX: M ATTEND: Kristina Hodge MD ADM AUTHOR: Erica Vaughan NP * ALL edits or amendments must be made on the electronic/computer document * Subjective Chief complaint: Want to walk around nursing station Patient reports: No: chest pain, palpitations, shortness of breath. Nursing reports: No: complaints. Comments: Patient is on room air, NAD. Telemetry shows atrial fibrillation. Objective General VS/I O: 24 hour I O ending at 0700: 11/03 [...] 94 Room air PATIENT WEIGHT: Weight (lb): 220 Weight (oz): 7.4 Weight (kg): 100.000 Medications: Active Meds + DC'd Last 24 Hrs Calcium Acetate (CALCIUM ACETATE) 667 MG C MEALS PO Ferric Sodium Gluconate Complex (FERRLECIT) 125 MG DAILY IV Sodium Chloride (SODIUM CHLORIDE 0.9%) 100 ML Furosemide (LASIX) 40 MG BID 9A 5P PO [...] 0.9%) 250 ML ASDIR PRN IV Status post: 11/02 right thoracentesis drained 1.2 L Physical Exam General appearance: alert, awake, oriented, no acute distress, pleasant, conversational, mental status normal, no respiratory distress Head/Eyes: atraumatic ENT: moist mucosal membranes Neck: non-tender, no JVD Cardiovascular: CV assessment: bradycardia, irregularly irregular, no murmur Respiratory: decreased breath sounds, no distress Abdomen: soft, non-tender Genitourinary: no flank pain, no urinary catheter Upper extremity: UE assessment: normal temperature Lower extremity: LE assessment: edema Musculoskeletal: normal inspection Neuro/FLOOR COVERING LAYER: alert, oriented X 3, normal speech Skin: dry, some erythema of BLE Psychiatry: normal affect, normal mood Results Findings/Data: Laboratory Tests 11/03 11/03 11/04 11/04 1225 1656 [...] % (Auto) (14.0 - 32.0 %) 16.3 [place] % (Auto) (4.8 - 9.0 %) 8.6 Eos % (Auto) (0.3 - 3.7 %) 8.2 H Baso % (Auto) (0.0 - 2.0 %) 1.1 Neut # (Auto) (2.0 - 7.6 x10 3/uL) 3.05 Lymph # (Auto) (1.0 - 3.8 x10 3/uL) 0.76 L [place] # (Auto) (0.1 - 0.8 x10 3/uL) [...] stable, rhythm personally rev'd, current med profile rev'd Telemetry Interpretation: Atrial fibrillation Diagnosis, Assessment Plan Problem List/A P: 1. Atrial fibrillation 2. KRISTI (acute kidney injury) 3. Hx of CABG 4. Diastolic CHF Consultants: cardiology, nephrology Plan discussed with: patient, nurse Free Text DxA P Notes Free Text DxA P Notes: 77 YO male with PMHx of CAD s/p [...] atrial fibrillation - slow A. fib/AFLT. Per EPS. Watchman halted due to left atrial thrombus Hold Eliquis - plan PPM in a.m 11/05. not on BB, CCB or AA d/t bradycardia continue telemetry - monitor for sick sinus syndrome Repeat Echo in a month to eval LA clot plan PPM on Saturday, 11/05. No dizziness. 2. Left atrial thrombus Eliquis 2.5 mg BID - on hold for PPM on Saturday, 11/05. 3. KRISTI on CKD unclear baseline kidney function creatinine 3.4->3.0->3.1 ->3.4 Nephrology following On Lasix 40 mg IV twice daily 4. Acute on chronic diastolic CHF Echo with normal EF, mild BNP 295 Diuresis per nephrology, currently on IV Lasix 40 mg bid 5. CAD with prior 3V CABG no BB due to bradycardia continue ASA and statin 6. Lower extremity edema d/t fluid overload diuresis per nephro LE venous doppler no DVT 7. Hypertension normotensive monitor off BP meds hold ACEI/ARBs d/t KRISTI, no BB d/t bradycardia 8. History of GIB bleed hgb 9.2->9->9.4-> 9.1-> 9.3 9. CXR showed RLL opacity/pleural effusion WBC normal, no fever could be 2/2 volume overload, on IV Lasix s/p rt thoracentesis 1.2 L (11/02) per Pulm Okay ambulate around nursing station with physical therapy CV stable. Cont supportive care. plan pacemaker in a.m. at 1226 at 1320 [facility] #:[id number] END OF REPORT [facility] 2022-11-04 08:03:00 [facility] ([facility] Nephrology Progress Note REPORT#:[id number] REPORT STATUS: Signed DATE:11/04/22 TIME: 0803 PATIENT: ROBE RITCHIE UNIT #: [id number] ROOM/BED: [place] [id number] : 43 AGE: 77 SEX: M ATTEND: Kristina Hodge MD ADM AUTHOR: Sherly Gomes MD * ALL edits or amendments must be made on the electronic/computer document * Subjective Chief complaint: For watchman device HPI: Patient seen and evaluated, discussed with care team, 77-year-old male with history of diabetes mellitus, hypertension, hyperlipidemia, chronic kidney disease followed by [facility] in [place] and [place] who presented for watchman's [...] management of his elevated BUN and creatinine. Patient reports: Yes: complaints. Comments: Patient seen and evaluated, HPI no change from initial, feels okay. Review of Systems Constitutional: Reports: fatigue. Denies: chills, fever. Skin: Denies: abrasion, bruising. Allergy/Immun: Denies: hives, itching. Eyes: Denies: redness, discharge. ENT: Denies: ear drainage, ear ringing. Respiratory: Denies: hemoptysis, SOB. Cardiovascular: Denies: chest pain. Objective General VS/I O: Vital Signs: Date Time Temp Pulse Resp [...] scale Measurement Method PATIENT WEIGHT: Weight (lb): 220 Weight (oz): 7.4 Weight (kg): 100.000 Medications Active Meds + DC'd Last 24 Hrs Calcium Acetate (CALCIUM ACETATE) 667 MG C MEALS PO Ferric Sodium Gluconate Complex (FERRLECIT) 125 MG DAILY IV Sodium Chloride (SODIUM CHLORIDE 0.9%) 100 ML Furosemide (LASIX) 40 MG BID 9A 5P PO [...] 0.9%) 250 ML ASDIR PRN IV Physical Exam General appearance: alert, no acute distress Head/eyes: atraumatic, normocephalic ENT: normal nose Neck: non-tender, supple/no meningismus Cardiovascular: normal heart sounds, no rub Respiratory: aerating well, symmetric expansion Abdomen: non-tender, soft Genitourinary: no flank pain, no urinary catheter Extremities: pitting edema, non-tender Musculoskeletal: no CVA tenderness, no tenderness Neuro/FLOOR COVERING LAYER: alert, normal speech Skin: dry, intact Results Findings/Data: Laboratory Tests 11/04 11/03 11/03 11/03 11/03 0450 [...] ng/mL) 34.5 11/02 11/01 11/01 11/01 0533 9 1716 1159 Chemistry POC Glucose (70 - [...] (14.0 - 32.0 %) 16.3 19.8 17.8 [place] % (Auto) (4.8 - 9.0 %) 8.6 10.4 H 9.5 H Eos % (Auto) (0.3 - 3.7 %) 8.2 H 5.9 H 6.3 H Baso % (Auto) (0.0 - 2.0 %) 1.1 1.1 1.0 Neut # (Auto) (2.0 - 7.6 x10 3/uL) 3.05 2.84 3.29 Lymph # (Auto) (1.0 - 3.8 x10 3/uL) 0.76 L 0.90 L 0.90 L [place] # (Auto) (0.1 - 0.8 x10 3/uL) [...] Microbiology Date/Time Procedure - Status Source Growth 11/034 Occult Blood - COMP STOOL Recent Impressions: ULTRASOUND - US THORACENTESIS W/IMAG 11/02 1410 Report Impression - Status: SIGNED Entered: 11/02/2022 1633 IMPRESSION: Technically successful ultrasound guided right thoracentesis. Impression By: [email or web address] - Terri Matos M.D. RADIOLOGY - XR CHEST 1 V 11/02 1415 [...] % (Auto) (14.0 - 32.0 %) 16.3 [place] % (Auto) (4.8 - 9.0 %) 8.6 Eos % (Auto) (0.3 - 3.7 %) 8.2 H Baso % (Auto) (0.0 - 2.0 %) 1.1 Neut # (Auto) (2.0 - 7.6 x10 3/uL) 3.05 Lymph # (Auto) (1.0 - 3.8 x10 3/uL) 0.76 L [place] # (Auto) (0.1 - 0.8 x10 3/uL) [...] Occult Blood - COMP STOOL Diagnosis, Assessment Plan Free Text A P: Patient seen and evaluated, discussed with care team, images and laboratories reviewed. History of hypertension: On doxazosin/hydralazine and lisinopril: We will hold lisinopril: Multiple pressure closely and adjust medications as needed History of diabetes mellitus: On Farxiga at, will DC due to low GFR. History of hyperlipidemia History of A. fib: On amiodarone, presented for watchman's device, however LETA showed atrial thrombus, procedure was aborted and patient will receive anticoagulation with Eliquis. 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 Possible acute kidney injury component, will check urinalysis, check urine protein creatinine ratio, check renal bladder ultrasound. Shortness of breath with lower extremity edema: We will give Lasix 60 mg IV every 8 hours x3 doses. 11/01/2022 laboratories this morning not done yet, will check results when available, will give 3 more doses of IV Lasix 60 mg every 8 hours. Sodium 139, potassium 5, CO2 24, BUN 63, creatinine 3 down from 3.4 improving, hemoglobin 9, platelet 179, blood count 5.4 11/02/2022 laboratory this morning showed hemoglobin 9.4, platelet 181, blood count 5.1, sodium 138, potassium 4.9, CO2 25, BUN 68, creatinine 3.1 relatively stable, will give 3 more doses of IV Lasix 40 mg every 8 hours, iron saturation 6.3%, ferritin 34, will give Ferrlecit 125 mg IV daily for 8 doses 11/03/2022 laboratory this morning showed sodium 137, potassium 5.1, CO2 24, BUN 70, creatinine 3.4 up from 3.1, phosphorus 6.1 we will start PhosLo 1 p.o. with each meal, hemoglobin 9.1, platelet 147, blood count 4.5, will start Lasix 40 mg p.o. twice daily, will check fecal occult blood since patient had low iron stores 11/04/2022 laboratory this morning showed sodium 136, potassium 5.1, CO2 21, BUN 63 down from 70, creatinine 3.1 down from 3.4 better, phosphorus 5.5 was started on PhosLo yesterday, hemoglobin 9.3, platelet 174, blood count 4.7, continue Lasix 40 mg p.o. twice daily Consultants: cardiology, nephrology at 0929 RPT #:[id number] END OF REPORT [facility] 2022-11-03 15:06:00 [facility] ([facility] Hospitalist Progress Note REPORT#:[id number] REPORT STATUS: Signed DATE:11/03/22 TIME: 1506 PATIENT: ROBE RITCHIE UNIT #: [id number] ROOM/BED: [place] [id number] : 43 AGE: 77 SEX: M ATTEND: Kristina Hodge MD ADM AUTHOR: Lis Benson MD * ALL edits or amendments must be made on the electronic/computer document * Subjective Chief complaint: less sob after thoracentesis pacemaker -- saturday HPI: 77 years old male with PMH of parkinson disease , CAD with CABG, afib , DM , HTN and CKD had watchman placement today . LETA show atrial thrombus . procedure was canceled . 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 he complaint of sob for 2 weeks . he had internal bleeding few weeks ago . xarelto stoped . he is on ASA. no cp no fever no cough no nausea no vomiting Review of Systems Constitutional: Denies: fatigue, fever, generalized weakness, lethargy. Respiratory: Denies: productive cough (sputum), SOB, wheezing. Cardiovascular: Denies: chest pain, GONZALEZ (dyspnea on exertion), edema, palpitations. GI: Denies: abdominal pain, nausea, vomiting. Neuro: Denies: dizziness, headache. Objective General VS/I O: Vital Signs: Date Time Temp Pulse Resp B/P B/P Pulse O2 O2 Flow FiO2 Mean Ox Delivery Rate 11/03 1228 36.2 47 18 115/49 70.9 94 Room air 11/03 0709 36.4 39 18 110/37 0.0 99 Room air 11/03 0501 36.4 42 16 104/65 78.0 97 Room air 11/03 0056 36.5 40 16 105/51 69.1 98 Room air 11/025 Nasal 2 cannula 11/02 2032 36.5 43 16 110/49 69.7 95 Room air 11/02 1738 36.4 37 17 157/55 88.6 98 Room air PATIENT WEIGHT: Weight (lb): 220 Weight (oz): 7.4 Weight (kg): 100.000 Medications: Active Meds + DC'd Last 24 Hrs Calcium Acetate (CALCIUM ACETATE) 667 MG C MEALS PO Ferric Sodium Gluconate Complex (FERRLECIT) 125 MG DAILY IV Sodium Chloride (SODIUM CHLORIDE 0.9%) 100 ML Furosemide (LASIX) 40 MG BID 9A 5P PO [...] 0.9%) 250 ML ASDIR PRN IV Physical Exam General appearance: alert, awake, oriented Head/Eyes: atraumatic, normal conjunctiva/sclera, normal eyelids/periorb., normocephalic Neck: full range of motion, non-tender, no JVD Cardiovascular: bradycardic, normal heart sounds Respiratory: aerating well, clear to auscultation Abdomen: non-tender, normal bowel sounds, soft, no distention Extremities: moves all, no calf tenderness, no edema Neuro/FLOOR COVERING LAYER: alert, oriented X 3, CNII-XII intact, normal speech, no motor deficits, no sensory deficits Skin: dry, intact Results Findings/Data: Laboratory Tests 11/0313 1225 0505 0500 2031 1735 Chemistry Sodium [...] % (Auto) (14.0 - 32.0 %) 19.8 [place] % (Auto) (4.8 - 9.0 %) 10.4 H Eos % (Auto) (0.3 - 3.7 %) 5.9 H Baso % (Auto) (0.0 - 2.0 %) 1.1 Neut # (Auto) (2.0 - 7.6 x10 3/uL) 2.84 Lymph # (Auto) (1.0 - 3.8 x10 3/uL) 0.90 L [place] # (Auto) (0.1 - 0.8 x10 3/uL) [...] - 0.1 x10 3/uL) 0.00 Diagnosis, Assessment Plan Consultants: cardiology, nephrology Free Text DxA P Notes Free text DxA P notes: atrial thrombus afib bradycardia SSS DM HTN CKD parkinson's disease Hx of bleeding atrial thrombus /afib/ bradycardia tele HR -- 40 -- manage as cardiology hematology consult -- longterm AC start eliuis now DM-- hold metformin [...] cardiology Quality: Gen Med Crit Care Current Medications Current medication review: Current Medications Sig/Denice Start time Last Medication Dose Route Stop Time Status Admin Docusate Sodium 100 MG DAILY 11/01 0900 AC PO 12/01 858 Aspirin 81 MG BEDTIME 10/31 2100 AC PO 11/30 2058 Atorvastatin Calcium 40 MG BEDTIME 10/31 2100 AC PO 11/30 2058 Gabapentin 300 MG BEDTIME 10/31 2100 AC PO 11/30 2058 Insulin Human Lispro 0 AC HS 10/31 1630 AC SUBQ 11/30 162 Carbidopa/Levodopa 2 TAB TID 10/31 1500 AC [...] .STK-MED ONE 10/31 07 DC IV Rocuronium [place] 0 .STK-MED ONE 10/31 0700 DC IV [...] 10/31 642 DC .ROUTE Lidocaine HCl 0 .[facility] ONE 10/31 642 DC .ROUTE Acetaminophen 1,000 [...] 10/29 1145 DC IV 11/28 1144 Home Medications: ATORVASTATIN (LIPITOR) 40 MG PO BEDTIME DOXAZOSIN (CARDURA) [...] best of my knowledge. at 1658 RPT #:[id number] END OF REPORT [facility] 2022-11-03 08:55:00 [facility] ([facility]) Cardiology Progress Note REPORT#:[id number] REPORT STATUS: Signed DATE:11/03/22 TIME: 0855 PATIENT: ROBE RITCHIE UNIT #: [id number] ROOM/BED: [place] [id number] : 43 AGE: 77 SEX: M ATTEND: Kristina Hodge MD ADM AUTHOR: Erica Vaughan NP * ALL edits or amendments must be made on the electronic/computer document * Subjective Chief complaint: doing better Patient reports: No: chest pain, palpitations, shortness of breath. Nursing reports: No: complaints. Comments: Pt is sitting on the edge of bed, eating breakfast. Telemetry shows atrial flutter with slow rate 40-50's, occasional heart rate dropped to 30 not sustained. Plan for pacemaker insertion on Saturday Bilateral lower leg edema. Objective General VS/I O: Vital Signs: Date Time Temp Pulse Resp [...] 98 Room air PATIENT WEIGHT: Weight (lb): 220 Weight (oz): 7.4 Weight (kg): 100.000 Medications: Active Meds + DC'd Last 24 Hrs Calcium Acetate (CALCIUM ACETATE) 667 MG C MEALS PO Ferric Sodium Gluconate Complex (FERRLECIT) 125 MG DAILY IV Sodium Chloride (SODIUM CHLORIDE 0.9%) 100 ML Furosemide (LASIX) 40 MG BID 9A 5P PO [...] 0.9%) 250 ML ASDIR PRN IV Status post: 11/02 right thoracentesis drained 1.2 L Physical Exam General appearance: alert, awake, oriented, no acute distress, pleasant, conversational, mental status normal, no respiratory distress Head/Eyes: atraumatic ENT: moist mucosal membranes Neck: non-tender, no JVD Cardiovascular: CV assessment: bradycardia, irregularly irregular, no murmur Respiratory: decreased breath sounds, no distress Abdomen: soft, non-tender Genitourinary: no flank pain, no urinary catheter Upper extremity: UE assessment: normal temperature Lower extremity: LE assessment: edema Musculoskeletal: normal inspection Neuro/FLOOR COVERING LAYER: alert, oriented X 3, normal speech Skin: dry, some erythema of BLE Psychiatry: normal affect, normal mood Results Findings/Data: Laboratory Tests 11/02 11/02 11/03 11/03 11/03 1735 [...] % (Auto) (14.0 - 32.0 %) 19.8 [place] % (Auto) (4.8 - 9.0 %) 10.4 H Eos % (Auto) (0.3 - 3.7 %) 5.9 H Baso % (Auto) (0.0 - 2.0 %) 1.1 Neut # (Auto) (2.0 - 7.6 x10 3/uL) 2.84 Lymph # (Auto) (1.0 - 3.8 x10 3/uL) 0.90 L [place] # (Auto) (0.1 - 0.8 x10 3/uL) [...] Magnesium (1.80 - 2.40 mg/dL) 2.10 Radiology data: Recent Impressions: ULTRASOUND - US THORACENTESIS W/IMAG 11/02 1410 Report Impression - Status: SIGNED Entered: 11/02/2022 1633 IMPRESSION: Technically successful ultrasound guided right thoracentesis. Impression By: [email or web address] - Terri Matos M.D. RADIOLOGY - XR CHEST 1 V 11/02 1415 Report Impression - Status: SIGNED Entered: 11/02/2022 1457 IMPRESSION: Decreased but persistent right lower lobe infiltrate and pleural effusion. Impression By: [id number] - Uriel Leon M.D. Results: labs reviewed, vital signs reviewed, vital signs stable, rhythm personally rev'd, current med profile rev'd Telemetry Interpretation: Atrial flutter Diagnosis, Assessment Plan Problem List/A P: 1. Atrial fibrillation 2. KRISTI (acute kidney injury) 3. Hx of CABG 4. Diastolic CHF Consultants: cardiology, nephrology Plan discussed with: patient, nurse Free Text DxA P Notes Free Text DxA P Notes: 77 YO male with PMHx of CAD s/p [...] atrial fibrillation - slow A. fib/AFLT. Per EPS. Watchman halted due to left atrial thrombus Hold Eliquis - plan PPM on Saturday. not on BB, CCB or AA d/t bradycardia continue telemetry - monitor for sick sinus syndrome Repeat Echo in a month to eval LA clot plan PPM on Saturday No dizziness. 2. Left atrial thrombus Eliquis 2.5 mg BID - on hold for PPM on Saturday. 3. KRISTI on CKD unclear baseline kidney function creatinine 3.4->3.0->3.1 ->3.4 Nephrology following 4. Acute on chronic diastolic CHF Echo with normal EF, mild BNP 295 Diuresis per nephrology, currently on IV Lasix 40 mg bid 5. CAD with prior 3V CABG no BB due to bradycardia continue ASA and statin 6. Lower extremity edema d/t fluid overload diuresis per nephro LE venous doppler no DVT 7. Hypertension normotensive monitor off BP meds hold ACEI d/t KRISTI, no BB d/t bradycardia 8. History of GIB bleed hgb 9.2->9->9.4-> 9.1 9. CXR showed RLL opacity/pleural effusion WBC normal, no fever could be 2/2 volume overload, on IV Lasix s/p rt thoracentesis 1.2 L (11/02) per Pulm CV stable. Cont supportive care. at 1340 at 0653 RPT #:[id number] END OF REPORT [facility] 2022-11-03 08:31:00 [facility] Nephrology Progress Note REPORT#:[id number] REPORT STATUS: Signed DATE:11/03/22 TIME: 830 PATIENT: ROBE RITCHIE UNIT #: [id number] ROOM/BED: [place] [id number] : 43 AGE: 77 SEX: M ATTEND: Kristina Hodge MD ADM AUTHOR: Sherly Gomes MD * ALL edits or amendments must be made on the electronic/computer document * Subjective Chief complaint: For watchman device HPI: Patient seen and evaluated, discussed with care team, 77-year-old male with history of diabetes mellitus, hypertension, hyperlipidemia, chronic kidney disease followed by [facility] in [place] and [place] who presented for watchman's [...] management of his elevated BUN and creatinine. Patient reports: Yes: complaints. Comments: Patient seen and evaluated, HPI no change from initial, feels okay. Review of Systems Constitutional: Reports: fatigue. Denies: chills, fever. Skin: Denies: abrasion, bruising. Allergy/Immun: Denies: hives, itching. Eyes: Denies: redness, discharge. ENT: Denies: ear drainage, ear ringing. Respiratory: Denies: hemoptysis, SOB. Cardiovascular: Denies: chest pain. Objective General VS/I O: Vital Signs: Date Time Temp Pulse Resp [...] 106/61 76.0 93 PATIENT WEIGHT: Weight (lb): 220 Weight (oz): 7.4 Weight (kg): 100.000 Medications Active Meds + DC'd Last 24 Hrs Ferric Sodium Gluconate Complex (FERRLECIT) 125 MG DAILY IV Sodium Chloride (SODIUM CHLORIDE 0.9%) 100 ML Furosemide (LASIX 40 mg/4 mL INJECTION) 40 [...] 0.9%) 250 ML ASDIR PRN IV Physical Exam General appearance: alert, no acute distress Head/eyes: atraumatic, normocephalic ENT: normal nose Neck: non-tender, supple/no meningismus Cardiovascular: normal heart sounds, no rub Respiratory: aerating well, symmetric expansion Abdomen: non-tender, soft Genitourinary: no flank pain, no urinary catheter Extremities: pitting edema, non-tender Musculoskeletal: no CVA tenderness, no tenderness Neuro/FLOOR COVERING LAYER: alert, normal speech Skin: dry, intact Results Findings/Data: Laboratory Tests 11/03 11/03 11/02 11/02 11/02 [...] (14.0 - 32.0 %) 19.8 17.8 14.2 [place] % (Auto) (4.8 - 9.0 %) 10.4 H 9.5 H 7.6 Eos % (Auto) (0.3 - 3.7 %) 5.9 H 6.3 H 6.6 H Baso % (Auto) (0.0 - 2.0 %) 1.1 1.0 0.9 Neut # (Auto) (2.0 - 7.6 x10 3/uL) 2.84 3.29 3.83 Lymph # (Auto) (1.0 - 3.8 x10 3/uL) 0.90 L 0.90 L 0.77 L [place] # (Auto) (0.1 - 0.8 x10 3/uL) [...] 102 Pleural Glucose (() MG/DL) 142 Recent Impressions: ULTRASOUND - DUP VEIN MARIE 11/01 1058 Report Impression - Status: SIGNED Entered: 11/01/2022 1109 IMPRESSION: No evidence of deep vein thrombosis. Impression By: Ely Leon M.D. ULTRASOUND - US RETROPERITONEAL COM 11/01 1100 Report Impression - Status: SIGNED Entered: 11/01/2022 1115 IMPRESSION: 1. No acute renal abnormality. 2. Ascites. Impression By: Ely Leon M.D. RADIOLOGY - XR CHEST 1 V 11/01 1525 Report Impression - Status: SIGNED Entered: 11/01/2022 1557 IMPRESSION: 1. Increased moderate right lower lobe pneumonia with small right pleural effusion. 2. Increased left base atelectasis/infiltrate. Impression By: [email or web address] - Ronald Escalante M.D. ULTRASOUND - US THORACENTESIS W/IMAG 11/02 1410 Report Impression - Status: SIGNED Entered: 11/02/2022 1633 IMPRESSION: Technically successful ultrasound guided right thoracentesis. Impression By: [email or web address] Agus Matos M.D. RADIOLOGY - XR CHEST 1 V 11/02 1415 Report Impression - Status: SIGNED Entered: 11/02/2022 1457 IMPRESSION: Decreased but persistent right lower lobe infiltrate and pleural effusion. Impression By: Ely Leon M.D. Laboratory Tests 11/03/13 0505 0500 2031 1735 1111 Chemistry Sodium [...] % (Auto) (14.0 - 32.0 %) 19.8 [place] % (Auto) (4.8 - 9.0 %) 10.4 H Eos % (Auto) (0.3 - 3.7 %) 5.9 H Baso % (Auto) (0.0 - 2.0 %) 1.1 Neut # (Auto) (2.0 - 7.6 x10 3/uL) 2.84 Lymph # (Auto) (1.0 - 3.8 x10 3/uL) 0.90 L [place] # (Auto) (0.1 - 0.8 x10 3/uL) [...] Pleural Macrophages % (%) 5 Diagnosis, Assessment Plan Free Text A P: Patient seen and evaluated, discussed with care team, images and laboratories reviewed. History of hypertension: On doxazosin/hydralazine and lisinopril: We will hold lisinopril: Multiple pressure closely and adjust medications as needed History of diabetes mellitus: On Farxiga at, will DC due to low GFR. History of hyperlipidemia History of A. fib: On amiodarone, presented for watchman's device, however LETA showed atrial thrombus, procedure was aborted and patient will receive anticoagulation with Eliquis. 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 Possible acute kidney injury component, will check urinalysis, check urine protein creatinine ratio, check renal bladder ultrasound. Shortness of breath with lower extremity edema: We will give Lasix 60 mg IV every 8 hours x3 doses. 11/01/2022 laboratories this morning not done yet, will check results when available, will give 3 more doses of IV Lasix 60 mg every 8 hours. Sodium 139, potassium 5, CO2 24, BUN 63, creatinine 3 down from 3.4 improving, hemoglobin 9, platelet 179, blood count 5.4 11/02/2022 laboratory this morning showed hemoglobin 9.4, platelet 181, blood count 5.1, sodium 138, potassium 4.9, CO2 25, BUN 68, creatinine 3.1 relatively stable, will give 3 more doses of IV Lasix 40 mg every 8 hours, iron saturation 6.3%, ferritin 34, will give Ferrlecit 125 mg IV daily for 8 doses 11/03/2022 laboratory this morning showed sodium 137, potassium 5.1, CO2 24, BUN 70, creatinine 3.4 up from 3.1, phosphorus 6.1 we will start PhosLo 1 p.o. with each meal, hemoglobin 9.1, platelet 147, blood count 4.5, will start Lasix 40 mg p.o. twice daily, will check fecal occult blood since patient had low iron stores Consultants: cardiology, nephrology at 1008 RPT #:[id number] END OF REPORT [facility] 2022-11-02 17:15:00 [facility] Pulmonology Progress Note REPORT#:[id number] REPORT STATUS: Signed DATE:11/02/22 TIME: 1715 PATIENT: ROBE RITCHIE UNIT #: [id number] ROOM/BED: [place] [id number] : 43 AGE: 77 SEX: M ATTEND: Kristina Hodge MD ADM AUTHOR: Taylor Lowery MD * ALL edits or amendments must be made on the electronic/computer document * Review of Systems ROS Constitutional: Denies: fatigue, fever, lethargy. Respiratory: Denies: hemoptysis, pleuritic pain, pneumonia. Cardiovascular: Denies: GONZALEZ (dyspnea on exertion), palpitations, parox nocturnal dyspnea. GI: Denies: anorexia, diarrhea, hematochezia. Heme: Denies: adenopathy, bleeding, bruising, petechiae, other. Objective General VS/I O: Last Documented: Result Date Time Pulse Ox [...] Output, Urine 500 PATIENT WEIGHT: Weight (lb): 231 Weight (oz): 4.24 Weight (kg): 104.900 Medications: Active Meds + DC'd Last 24 Hrs Ferric Sodium Gluconate Complex (FERRLECIT) 125 MG DAILY IV Sodium Chloride (SODIUM CHLORIDE 0.9%) 100 ML Furosemide (LASIX 40 mg/4 mL INJECTION) 40 [...] ML ASDIR PRN IV Free Text Obj Notes Free Text Obj Notes: General appearance: alert, awake, oriented Head/Eyes: atraumatic, normocephalic, PERRLA Neck: full range of motion, non-tender, normal thyroid Cardiovascular: normal heart sounds, normal S1/S2, regular rate rhythm Respiratory/chest: aerating well, clear to auscultation, symmetric expansion Abdomen: soft, non-tender, normal bowel sounds Genitourinary: no bladder distention, no flank pain Extremities: No edema, moves all, normal capillary refill, no calf tenderness Musculoskeletal: full range of motion, normal inspection, painless range of motion, straight leg raise neg Skin: dry, intact, normal color Diagnosis, Assessment Plan Free Text A P: 1. Pleural effusion #2 pulmonary edema #3 CHF exacerbation #4 CKD #5 atrial thrombosis #6 history of GI bleed Should is volume overloaded CKD Lasix 40 IV every 8 hours S/p right-sided thoracentesis removed 1200 cc of fluid Chest x-ray has much improved Plan on pacemaker placement on Saturday Quality: Gen Med Crit Care Current Medications Current medication review: Current Medications Sig/Denice Start time [...] .STK-MED ONE 10/31 07 DC IV Rocuronium [place] 0 .STK-MED ONE 10/31 699 DC IV Heparin Sodium 0 .STK-MED ONE 10/31 0658 DC 10/31 .ROUTE 0751 Heparin Sodium/ 2,000 ML .STK-MED ONE 10/31 0658 DC 10/31 Sodium Chloride IV 0751 Heparin Sodium/ 500 ML .STK-MED ONE 10/31 06 DC 10/31 Sodium Chloride IV 0751 Bupivacaine HCl 0 .K-MED ONE 10/31 0657 DC .ROUTE Acetaminophen 0 .K-MED ONE 10/31 06 DC .ROUTE Gabapentin [address] ONE 10/31 642 DC .ROUTE Lidocaine HCl [address] ONE 10/31 642 DC .ROUTE Acetaminophen 1,000 [...] 10/29 1145 DC IV 11/28 1144 Home Medications: ATORVASTATIN (LIPITOR) 40 MG PO BEDTIME DOXAZOSIN (CARDURA) [...] best of my knowledge. at 1716 RPT #:[id number] END OF REPORT [facility] 2022-11-02 16:50:00 [facility] Juanjose/Oncology Progress Note REPORT#:[id number] REPORT STATUS: Signed DATE:11/02/22 TIME: 1650 PATIENT: ROBE RITCHIE UNIT #: [id number] ROOM/BED: [place] [id number] : 43 AGE: 77 SEX: M ATTEND: Kristina Hodge MD ADM AUTHOR: Carlos Alberto Barfield MD * ALL edits or amendments must be made on the electronic/computer document * Subjective Chief Complaint: S/p Rt thoracenetesis this AM Objective Physical Exam VS: Vital Signs Date Temp Pulse Resp B/P B/P [...] 2 10/31 1449 General appearance: alert, awake, oriented HEENT: anicteric, atraumatic Cardiovascular: bradycardia, irregularly irregular Respiratory: crackles, decreased breath sounds Abdomen: non-tender, normal bowel sounds, soft Extremities: pitting edema Neuro/FLOOR COVERING LAYER: alert, oriented X 3 skin dry, intact Psychiatry: normal affect Current Medications Medications: Active Meds + DC'd Last 24 Hrs Ferric Sodium Gluconate Complex (FERRLECIT) 125 MG DAILY IV Sodium Chloride (SODIUM CHLORIDE 0.9%) 100 ML Furosemide (LASIX 40 mg/4 mL INJECTION) 40 [...] CHLORIDE 0.9%) 250 ML ASDIR PRN IV Results Findings/Data: Laboratory Tests 11/02/22 0803: [Embedded Image Not Available] Laboratory Tests 11/02 11/02 11/02 11/02 11/01 1111 [...] % (Auto) (14.0 - 32.0 %) 17.8 [place] % (Auto) (4.8 - 9.0 %) 9.5 H Eos % (Auto) (0.3 - 3.7 %) 6.3 H Baso % (Auto) (0.0 - 2.0 %) 1.0 Neut # (Auto) (2.0 - 7.6 x10 3/uL) 3.29 Lymph # (Auto) (1.0 - 3.8 x10 3/uL) 0.90 L [place] # (Auto) (0.1 - 0.8 x10 3/uL) [...] 26 Pleural Macrophages % (%) 5 Radiology data: Recent Impressions: ULTRASOUND - US THORACENTESIS W/IMAG 11/02 1410 Report Impression - Status: SIGNED Entered: 11/02/2022 1633 IMPRESSION: Technically successful ultrasound guided right thoracentesis. Impression By: [email or web address] - Terri Matos M.D. RADIOLOGY - XR CHEST 1 V 11/02 1415 Report Impression - Status: SIGNED Entered: 11/02/2022 1457 IMPRESSION: Decreased but persistent right lower lobe infiltrate and pleural effusion. Impression By: [email or web address] - Uriel Leon M.D. Diagnosis, Assessment Plan Consultants: cardiology, nephrology Free Text DxA P Notes Free Text DxA P Notes: ASSESSMENT: 1. 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 2. Previous history of anticoagulation with recent GI bleed. Suspect underlying acute iron deficiency anemia. 3. Acute on chronic kidney disease. 4. Acute on chronic diastolic congestive heart failure. 5. History of coronary artery disease status post coronary artery bypass graft. 6. Hypertension. PLAN: -Continue anticoagulation recommendations as per cardiology. Suspect left atrial thrombus secondary to underlying atrial fibrillation. No necessity for hypercoagulable workup. Currently, started on Eliquis 2.5 mg oral twice daily given renal insufficiency -Iron panel with iron deficiency- ferrlecit x 8 ordered -Nephrology consultation appreciated. Creatinine 3.1 Currently receiving Lasix 40 mg IV q. 8 hours -Bilateral lower extremity ultrasound to rule out deep vein thrombosis- negative -Pulm consult and f/u appreciated- s/ rt thoracentesis 1200mL removed 11/02 -Other medical management as per primary team. Will follow next week, Dr. Sherron head if needed. Carlos Alberto Barfield MD at 1652 RPT #:[id number] END OF REPORT [facility] 2022-11-02 15:38:00 [facility] ([facility]) EP Progress Note REPORT#:[id number] REPORT STATUS: Signed DATE:11/02/22 TIME: 1537 PATIENT: ROBE RITCHIE UNIT #: [id number] ROOM/BED: [place] [id number] : 43 AGE: 77 SEX: M ATTEND: Kristina Hodge MD ADM AUTHOR: Wade Altman SENIOR PRODUCT ENGINEER * ALL edits or amendments must be made on the electronic/computer document * Wade Altman 11/02/22 1538: Objective General VS/I O Last Documented: Result Date Time Pulse Ox [...] Output, Urine 500 PATIENT WEIGHT: Weight (lb): 231 Weight (oz): 4.24 Weight (kg): 104.900 Medications: Active Meds + DC'd Last 24 Hrs Ferric Sodium Gluconate Complex (FERRLECIT) 125 MG DAILY IV Sodium Chloride (SODIUM CHLORIDE 0.9%) 100 ML Furosemide (LASIX 40 mg/4 mL INJECTION) 40 [...] TABLET) 2.5 MG BID PO (DC) Physical Exam General appearance: alert, awake, oriented Cardiovascular: CV assessment: bradycardia, irregular rhythm Respiratory: on oxygen, no distress Abdomen: soft, non-tender Extremities: moves all Neuro/FLOOR COVERING LAYER: alert, oriented X 3 Findings/Data: Laboratory Tests: 11/02 11/02 11/02 11/02 1345 1111 [...] % (Auto) (14.0 - 32.0 %) 17.8 [place] % (Auto) (4.8 - 9.0 %) 9.5 H Eos % (Auto) (0.3 - 3.7 %) 6.3 H Baso % (Auto) (0.0 - 2.0 %) 1.0 Neut # (Auto) (2.0 - 7.6 x10 3/uL) 3.29 Lymph # (Auto) (1.0 - 3.8 x10 3/uL) 0.90 L [place] # (Auto) (0.1 - 0.8 x10 3/uL) [...] 500 cells/uL) 221 11/02 11/01 11/01 0533 1951 1712 Chemistry POC Glucose (70 - 110 MG/DL) [...] Bacilli Smear - ORD PLEURAL FL Recent Impressions: RADIOLOGY - XR CHEST 1 V 11/02 1415 Report Impression - Status: SIGNED Entered: 11/02/2022 1457 IMPRESSION: Decreased but persistent right lower lobe infiltrate and pleural effusion. Impression By: [email or web address] Agus Leon M.D. Laboratory Tests 11/02 0803 Chemistry Magnesium (1.80 - 2.40 mg/dL) 2.03 Diagnosis, Assessment Plan Free Text A P: 1. Bradycardia -currently Afib 30s-50s -no AVN-blocking meds -no reversible causes -plan for PPM implantation Saturday,11/05-899, per () 2. Afib -s/p aborted attempt for LAAO via WATCHMAN per -s/p LETA, [place] thrombus -no AA therapy -AC eliquis; d/c per pulm 3. CHF -per cardio, LVEF nml Consultants: cardiology, nephrology at 1547 at 1309 RPT #:[id number] END OF REPORT [facility] 2022-11-02 10:51:00 [facility] Hospitalist Progress Note REPORT#:[id number] REPORT STATUS: Signed DATE:11/02/22 TIME: 1051 PATIENT: ROBE RITCHIE UNIT #: [id number] ROOM/BED: [place] [id number] : 43 AGE: 77 SEX: M ATTEND: Kristina Hodge MD ADM AUTHOR: Lis Benson MD * ALL edits or amendments must be made on the electronic/computer document * Subjective Chief complaint: he feel well . no cp no sob. thorancentesis today HPI: 77 years old male with PMH of parkinson disease , CAD with CABG, afib , DM , HTN and CKD had watchman placement today . LETA show atrial thrombus . procedure was canceled . 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 he complaint of sob for 2 weeks . he had internal bleeding few weeks ago . xarelto stoped . he is on ASA. no cp no fever no cough no nausea no vomiting Review of Systems Constitutional: Denies: generalized weakness, lethargy. Respiratory: Denies: productive cough (sputum), SOB, wheezing. Cardiovascular: Denies: chest pain, GONZALEZ (dyspnea on exertion), edema, orthopnea. GI: Denies: abdominal pain, nausea, vomiting. Neuro: Denies: dizziness. Objective General VS/I O: Vital Signs: Date Time Temp Pulse Resp [...] Output, Urine 500 PATIENT WEIGHT: Weight (lb): 231 Weight (oz): 4.24 Weight (kg): 104.900 Medications: Active Meds + DC'd Last 24 Hrs Ferric Sodium Gluconate Complex (FERRLECIT) 125 MG DAILY IV Sodium Chloride (SODIUM CHLORIDE 0.9%) 100 ML Furosemide (LASIX 40 mg/4 mL INJECTION) 40 [...] 0.9%) 250 ML ASDIR PRN IV Physical Exam General appearance: alert, awake, oriented Head/Eyes: atraumatic, normal conjunctiva/sclera, normal eyelids/periorb., normocephalic Neck: full range of motion, non-tender, no JVD Cardiovascular: bradycardic, normal heart sounds Respiratory: aerating well, clear to auscultation Abdomen: non-tender, normal bowel sounds, soft, no distention Extremities: moves all, no calf tenderness, no edema Neuro/FLOOR COVERING LAYER: alert, oriented X 3, CNII-XII intact, normal speech, no motor deficits, no sensory deficits Skin: dry, intact Results Findings/Data: Laboratory Tests 11/02 11/02 11/02 11/02 11/01 1111 [...] % (Auto) (14.0 - 32.0 %) 17.8 [place] % (Auto) (4.8 - 9.0 %) 9.5 H Eos % (Auto) (0.3 - 3.7 %) 6.3 H Baso % (Auto) (0.0 - 2.0 %) 1.0 Neut # (Auto) (2.0 - 7.6 x10 3/uL) 3.29 Lymph # (Auto) (1.0 - 3.8 x10 3/uL) 0.90 L [place] # (Auto) (0.1 - 0.8 x10 3/uL) [...] 26 Pleural Macrophages % (%) 5 Radiology data: Recent Impressions: ULTRASOUND - US THORACENTESIS W/IMAG 11/02 1410 Report Impression - Status: SIGNED Entered: 11/02/2022 1633 IMPRESSION: Technically successful ultrasound guided right thoracentesis. Impression By: [email or web address] Agus Matos M.D. RADIOLOGY - XR CHEST 1 V 11/02 1415 Report Impression - Status: SIGNED Entered: 11/02/2022 1457 IMPRESSION: Decreased but persistent right lower lobe infiltrate and pleural effusion. Impression By: [email or web address] Agus Leon M.D. Diagnosis, Assessment Plan Consultants: cardiology, nephrology Free Text DxA P Notes Free text DxA P notes: atrial thrombus afib bradycardia DM HTN CKD parkinson's disease Hx of bleeding atrial thrombus /afib/ bradycardia tele HR -- 40 -- manage as cardiology hematology consult -- watermelon inspector AC start eliuis now DM-- hold metformin [...] pulmon Quality: Gen Med Crit Care Current Medications Current medication review: Current Medications Sig/Denice Start time [...] .STK-MED ONE 10/31 07 DC IV Rocuronium [place] 0 .STK-MED ONE 10/31 0700 DC IV [...] 10/29 1145 DC IV 11/28 1144 Home Medications: ATORVASTATIN (LIPITOR) 40 MG PO BEDTIME DOXAZOSIN (CARDURA) [...] best of my knowledge. at 1729 RPT #:[id number] END OF REPORT [facility] 2022-11-02 08:47:00 [facility] ([facility]) Cardiology Progress Note REPORT#:[id number] REPORT STATUS: Signed DATE:11/02/22 TIME: 08 PATIENT: ROBE RITCHIE JR UNIT #: [id number] ROOM/BED: [place] [id number] : 43 AGE: 77 SEX: M ATTEND: Kristina Hodge MD ADM AUTHOR: Cynthia Sliver * ALL edits or amendments must be made on the electronic/computer document * Subjective Comments: slow afib at night, HR goes up to 50-60 with activity/ambulation Objective General VS/I O: 24 hour I O ending at 0700: [...] 97 Room air PATIENT WEIGHT: Weight (lb): 231 Weight (oz): 4.24 Weight (kg): 104.900 Medications: Active Meds + DC'd Last 24 Hrs Docusate Sodium (COLACE) 100 MG DAILY PO [...] TABLET) 2.5 MG BID PO (DC) Physical Exam General appearance: obese, alert, awake, oriented, no acute distress Neck: non-tender, no JVD Cardiovascular: CV assessment: bradycardia, irregular rhythm Respiratory: decreased breath sounds, no distress Abdomen: soft, non-tender Genitourinary: no flank pain, no urinary catheter Lower extremity: LE assessment: edema Musculoskeletal: normal inspection Neuro/FLOOR COVERING LAYER: alert, oriented X 3, normal speech Skin: dry, some erythema of BLE Psychiatry: normal affect, normal mood Results Findings/Data: Laboratory Tests 11/02 11/01 11/01 11/01 0533 1959 1716 1159 Chemistry POC Glucose (70 - 110 MG/DL) 118 H 141 H 176 H 153 H Laboratory Tests 11/02/22 0803: [Embedded Image Not Available] 11/01/22 0752: [Embedded Image Not Available] Radiology data: Recent Impressions: ULTRASOUND - DUP VEIN MARIE 11/01 1058 Report Impression - Status: SIGNED Entered: 11/01/2022 1109 IMPRESSION: No evidence of deep vein thrombosis. Impression By: Ely Leon M.D. ULTRASOUND - US RETROPERITONEAL COM 11/01 1100 Report Impression - Status: SIGNED Entered: 11/01/2022 1115 IMPRESSION: 1. No acute renal abnormality. 2. Ascites. Impression By: Ely Leon M.D. RADIOLOGY - XR CHEST 1 V 11/01 1525 Report Impression - Status: SIGNED Entered: 11/01/2022 1557 IMPRESSION: 1. Increased moderate right lower lobe pneumonia with small right pleural effusion. 2. Increased left base atelectasis/infiltrate. Impression By: [email or web address] - Ronald Escalante M.D. Results: labs reviewed, vital signs reviewed Telemetry Interpretation: slow atrial fibrillation Diagnosis, Assessment Plan Problem List/A P: 1. Atrial fibrillation 2. KRISTI (acute kidney injury) 3. Hx of CABG 4. Diastolic CHF Plan discussed with: patient, consultants (EP MOLD BREAKER), nurse Free Text DxA P Notes Free Text DxA P Notes: 77 YO male with PMHx of CAD s/p [...] 1. Chronic atrial fibrillation - slow A. fib Watchman halted due to left atrial thrombus continue Eliquis 2.5 mg twice a day Hold amiodarone due to bradycardia not on BB or CCB therapy continue telemetry - monitor for sick sinus syndrome Repeat Echo in a month to eval LA clot EP consult for slow afib - EP did not recommend PPM at this time walked patient out of the room for several feet and HR goes up to 50-60s with stable blood pressure 2. Left atrial thrombus Eliquis 2.5 mg BID - on hold in prep for thoracentesis 3. KRISTI on CKD unclear baseline kidney function creatinine 3.4->3.0->3.1 Nephrology following 4. Acute on chronic diastolic CHF Echo with normal EF, mild BNP 295 Diuresis per nephrology, currently on IV Lasix 40 mg Q8H 5. CAD with prior 3V CABG no BB due to bradycardia continue ASA and statin 6. Lower extremity edema d/t fluid overload on IV lasix LE venous doppler no DVT 7. Hypertension normotensive monitor off BP meds hold ACEI d/t KRISTI, no BB d/t bradycardia 8. History of GIB bleed hgb 9.2->9->9.4 9. CXR showed RLL opacity/pleural effusion WBC normal, no fever could be 2/2 volume overload, on IV Lasix Pulmo following with planned for thoracentesis at 1100 at 2338 RPT #:[id number] END OF REPORT [facility] 2022-11-02 06:42:00 [facility] ([facility]) Nephrology Progress Note REPORT#:[id number] REPORT STATUS: Signed DATE:11/02/22 TIME: 0642 PATIENT: ROBE RITCHIE JR UNIT #: [id number] ROOM/BED: 4421-1 : 43 AGE: 77 SEX: M ATTEND: Kristina Hodge MD ADM AUTHOR: Sherly Gomes MD * ALL edits or amendments must be made on the electronic/computer document * Subjective Chief complaint: For watchman device HPI: Patient seen and evaluated, discussed with care team, 77-year-old male with history of diabetes mellitus, hypertension, hyperlipidemia, chronic kidney disease followed by [facility] in [place] and [facility] [place] who presented for watchman's [...] management of his elevated BUN and creatinine. Patient reports: Yes: complaints. Comments: Patient seen and evaluated, HPI no change from initial, feels okay. Review of Systems Constitutional: Reports: fatigue. Denies: chills, fever. Skin: Denies: abrasion, bruising. Allergy/Immun: Denies: hives, itching. Eyes: Denies: redness, discharge. ENT: Denies: ear drainage, ear ringing. Respiratory: Denies: hemoptysis, SOB. Cardiovascular: Denies: chest pain. Objective General VS/I O: Vital Signs: Date Time Temp Pulse Resp [...] Output, Urine 500 PATIENT WEIGHT: Weight (lb): 231 Weight (oz): 4.24 Weight (kg): 104.900 Medications Active Meds + DC'd Last 24 Hrs Docusate Sodium (COLACE) 100 MG DAILY PO [...] 0.1MG/ML SYR) 0.5 MG ASDIR PRN IV (DC ) Sodium Chloride (SODIUM CHLORIDE 0.9%) 500 ML ASDIR PRN IV (DC) Physical Exam General appearance: alert, no acute distress Head/eyes: atraumatic, normocephalic ENT: normal nose Neck: non-tender, supple/no meningismus Cardiovascular: normal heart sounds, no rub Respiratory: aerating well, symmetric expansion Abdomen: non-tender, soft Genitourinary: no flank pain, no urinary catheter Extremities: pitting edema, non-tender Musculoskeletal: no CVA tenderness, no tenderness Neuro/FLOOR COVERING LAYER: alert, normal speech Skin: dry, intact Results Findings/Data: Laboratory Tests 11/02 11/01 11/01 11/01 11/01 0533 1959 1716 1159 0752 Chemistry POC Glucose (70 - 110 MG/DL) 118 H 141 H 176 H 153 H B-Natriuretic Peptide (0 - 100 PG/ML) 295.0 H 11/01 0500 1858 3087 1322 Chemistry Sodium (134 - 147 mEq/L) 139 [...] (1.80 - 2.40 mg/dL) 2.17 Laboratory Tests 11/012 Hematology WBC (4.5 - 11.0 x10 3/uL) [...] % (Auto) (14.0 - 32.0 %) 14.2 [place] % (Auto) (4.8 - 9.0 %) 7.6 Eos % (Auto) (0.3 - 3.7 %) 6.6 H Baso % (Auto) (0.0 - 2.0 %) 0.9 Neut # (Auto) (2.0 - 7.6 x10 3/uL) 3.83 Lymph # (Auto) (1.0 - 3.8 x10 3/uL) 0.77 L [place] # (Auto) (0.1 - 0.8 x10 3/uL) [...] (0.0 - 0.1 x10 3/uL) 0.00 Recent Impressions: ULTRASOUND - DUP VEIN MARIE 11/01 1058 Report Impression - Status: SIGNED Entered: 11/01/2022 1109 IMPRESSION: No evidence of deep vein thrombosis. Impression By: Ely Leon M.D. ULTRASOUND - US RETROPERITONEAL COM 11/01 1100 Report Impression - Status: SIGNED Entered: 11/01/2022 1115 IMPRESSION: 1. No acute renal abnormality. 2. Ascites. Impression By: Ely Leon M.D. RADIOLOGY - XR CHEST 1 V 11/01 1525 [...] H B-Natriuretic Peptide (0 - 100 295.0 H PG/ML) 11/01 0752 Chemistry Sodium (134 - 147 mEq/L) 139 [...] % (Auto) (14.0 - 32.0 %) 14.2 [place] % (Auto) (4.8 - 9.0 %) 7.6 Eos % (Auto) (0.3 - 3.7 %) 6.6 H Baso % (Auto) (0.0 - 2.0 %) 0.9 Neut # (Auto) (2.0 - 7.6 x10 3/uL) 3.83 Lymph # (Auto) (1.0 - 3.8 x10 3/uL) 0.77 L [place] # (Auto) (0.1 - 0.8 x10 3/uL) [...] - 0.1 x10 3/uL) 0.00 Diagnosis, Assessment Plan Free Text A P: Patient seen and evaluated, discussed with care team, images and laboratories reviewed. History of hypertension: On doxazosin/hydralazine and lisinopril: We will hold lisinopril: Multiple pressure closely and adjust medications as needed History of diabetes mellitus: On Farxiga at, will DC due to low GFR. History of hyperlipidemia History of A. fib: On amiodarone, presented for watchman's device, however LETA showed atrial thrombus, procedure was aborted and patient will receive anticoagulation with Eliquis. 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 Possible acute kidney injury component, will check urinalysis, check urine protein creatinine ratio, check renal bladder ultrasound. Shortness of breath with lower extremity edema: We will give Lasix 60 mg IV every 8 hours x3 doses. 11/01/2022 laboratories this morning not done yet, will check results when available, will give 3 more doses of IV Lasix 60 mg every 8 hours. Sodium 139, potassium 5, CO2 24, BUN 63, creatinine 3 down from 3.4 improving, hemoglobin 9, platelet 179, blood count 5.4 11/02/2022 laboratory this morning showed hemoglobin 9.4, platelet 181, blood count 5.1, sodium 138, potassium 4.9, CO2 25, BUN 68, creatinine 3.1 relatively stable, will give 3 more doses of IV Lasix 40 mg every 8 hours, iron saturation 6.3%, ferritin 34, will give Ferrlecit 125 mg IV daily for 8 doses Consultants: cardiology, nephrology at 1012 RPT #:[id number] END OF REPORT [facility] 2022-11-01 17:50:00 [facility] Juanjose/Oncology Progress Note REPORT#:[id number] REPORT STATUS: Signed DATE:11/01/22 TIME: 1750 PATIENT: ROBE RITCHIE JR UNIT #: [id number] ROOM/BED: [place] [address] : 43 AGE: 77 SEX: M ATTEND: Kristina Hodge MD ADM AUTHOR: Carlos Alberto Barfield MD * ALL edits or amendments must be made on the electronic/computer document * Subjective Chief Complaint: Some improvement in breathing with diuresis- seen by cardio and pulmonary Objective Physical Exam VS: Vital Signs Date Temp Pulse Resp B/P B/P Mean Pulse Ox FiO2 10/31-11/01 36.3-36.6 42-53 16-17 108-165/42-71 64.2-100.6 92-97 Last Documented: Result Date Time Pulse Ox 96 11/01 1723 B/P 126/65 11/01 1723 B/P Mean 85.5 11/01 1723 O2 Delivery Room air 11/01 1723 Temp 36.3 11/01 1723 Pulse 42 11/01 1723 Resp 17 11/01 1723 O2 Flow Rate 2 10/31 1449 General appearance: alert, awake, oriented HEENT: anicteric, atraumatic Cardiovascular: bradycardia, irregularly irregular Respiratory: crackles, decreased breath sounds Abdomen: non-tender, normal bowel sounds, soft Extremities: pitting edema Neuro/FLOOR COVERING LAYER: alert, oriented X 3 skin dry, intact Psychiatry: normal affect Current Medications Medications: Active Meds + DC'd Last 24 Hrs Docusate Sodium (COLACE) 100 MG DAILY PO [...] 0.1MG/ML SYR) 0.5 MG ASDIR PRN IV (DC ) Sodium Chloride (SODIUM CHLORIDE 0.9%) 500 ML ASDIR PRN IV (DC) Results Findings/Data: Laboratory Tests 11/01/22 075: [Embedded Image Not Available] Laboratory Tests 11/01 11/01 11/01 11/01 11/01 1716 [...] % (Auto) (14.0 - 32.0 %) 14.2 [place] % (Auto) (4.8 - 9.0 %) 7.6 Eos % (Auto) (0.3 - 3.7 %) 6.6 H Baso % (Auto) (0.0 - 2.0 %) 0.9 Neut # (Auto) (2.0 - 7.6 x10 3/uL) 3.83 Lymph # (Auto) (1.0 - 3.8 x10 3/uL) 0.77 L [place] # (Auto) (0.1 - 0.8 x10 3/uL) [...] (0.0 - 0.1 x10 3/uL) 0.00 Radiology data: Recent Impressions: ULTRASOUND - DUP VEIN MARIE 11/01 1058 Report Impression - Status: SIGNED Entered: 11/01/2022 1109 IMPRESSION: No evidence of deep vein thrombosis. Impression By: Ely Leon M.D. ULTRASOUND - US RETROPERITONEAL COM 11/01 1100 Report Impression - Status: SIGNED Entered: 11/01/2022 1115 IMPRESSION: 1. No acute renal abnormality. 2. Ascites. Impression By: Ely Leon M.D. RADIOLOGY - XR CHEST 1 V 11/01 1525 Report Impression - Status: SIGNED Entered: 11/01/2022 1557 IMPRESSION: 1. Increased moderate right lower lobe pneumonia with small right pleural effusion. 2. Increased left base atelectasis/infiltrate. Impression By: [email or web address] - Ronald Escalante M.D. Diagnosis, Assessment Plan Consultants: cardiology, nephrology Free Text DxA P Notes Free Text DxA P Notes: ASSESSMENT: 1. 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 2. Previous history of anticoagulation with recent GI bleed. Suspect underlying acute iron deficiency anemia. 3. Acute on chronic kidney disease. 4. Acute on chronic diastolic congestive heart failure. 5. History of coronary artery disease status post coronary artery bypass graft. 6. Hypertension. PLAN: -Continue anticoagulation recommendations as per cardiology. Suspect left atrial thrombus secondary to underlying atrial fibrillation. No necessity for hypercoagulable workup. Currently, started on Eliquis 2.5 mg oral twice daily given renal insufficiency- on hold tonight for thoracenetesis by IR in AM -Check iron panel/ferritin. Can provide parenteral iron if need be. -Nephrology consultation appreciated. Creatinine elevated 3.4, baseline unknown. Currently receiving Lasix 60 mg IV q. 8 hours- creatinine today 3 -Bilateral lower extremity ultrasound to rule out deep vein thrombosis- negative -Pulm consult and f/u appreciated -Other medical management as per primary team. Carlos Alberto Barfield MD at 1753 RPT #:[id number] END OF REPORT [facility] 2022-11-01 16:49:00 [facility] Pulmonology Progress Note REPORT#:[id number] REPORT STATUS: Signed DATE:11/01/22 TIME: 1649 PATIENT: ROBE RITCHIE UNIT #: [id number] ROOM/BED: [place] [id number] : 43 AGE: 77 SEX: M ATTEND: Kristina Hodge MD ADM AUTHOR: Taylor Lowery MD * ALL edits or amendments must be made on the electronic/computer document * Review of Systems ROS Constitutional: Denies: fatigue, fever, lethargy. Respiratory: Denies: hemoptysis, pleuritic pain, pneumonia. Cardiovascular: Denies: GONZALEZ (dyspnea on exertion), palpitations, parox nocturnal dyspnea. GI: Denies: anorexia, diarrhea, hematochezia. Heme: Denies: adenopathy, bleeding, bruising, petechiae, other. Objective General VS/I O: Last Documented: Result Date Time Pulse Ox 97 [...] Urine 390 400 PATIENT WEIGHT: Weight (lb): 231 Weight (oz): 4.24 Weight (kg): 104.900 Medications: Active Meds + DC'd Last 24 Hrs Docusate Sodium (COLACE) 100 MG DAILY PO [...] 0.1MG/ML SYR) 0.5 MG ASDIR PRN IV (DC ) Sodium Chloride (SODIUM CHLORIDE 0.9%) 500 ML ASDIR PRN IV (DC) Free Text Obj Notes Free Text Obj Notes: General appearance: alert, awake, oriented Head/Eyes: atraumatic, normocephalic, PERRLA Neck: full range of motion, non-tender, normal thyroid Cardiovascular: normal heart sounds, normal S1/S2, regular rate rhythm Respiratory/chest: aerating well, clear to auscultation, symmetric expansion Abdomen: soft, non-tender, normal bowel sounds Genitourinary: no bladder distention, no flank pain Extremities: No edema, moves all, normal capillary refill, no calf tenderness Musculoskeletal: full range of motion, normal inspection, painless range of motion, straight leg raise neg Skin: dry, intact, normal color Diagnosis, Assessment Plan Free Text A P: 1. Pleural effusion #2 pulmonary edema #3 CHF exacerbation #4 CKD #5 atrial thrombosis #6 history of GI bleed Patient presented for watchman procedure LETA revealed atrial thrombosis, the procedure was canceled He is in CHF exacerbation with volume overload status, secondary to CKD as well Chest x-ray showed right-sided pleural effusion with atelectasis, There is bilateral infiltrates most consistent with pulm edema Pneumonia is unlikely he has no respiratory symptoms to suggest pneumonia and he has no fever, no leukocytosis or left shift Has been on diuresis with clinical improvement Chest x-ray has slightly improved, still with right-sided pleural effusion Stop Eliquis Ultrasound-guided thoracentesis tomorrow morning by IR Quality: Gen Med Crit Care Current Medications Current medication review: Current Medications Sig/Denice Start time [...] 11/30 0944 Apixaban 2.5 MG BID 10/31 899 AC PO 11/30 0859 Atropine Sulfate 0.5 MG ASDIR PRN 10/31 0830 AC IV 11/01 0822 Sodium Chloride 500 ML ASDIR PRN 10/31 0830 AC IV 11/01 0822 Vancomycin HCl 0 .STK-MED ONE 10/31 0635 DC 10/31 .ROUTE 0751 Heparin Sodium 0 .STK-MED ONE 10/31 723 DC .ROUTE Sugammadex Sodium 0 .STK-MED ONE 10/31 714 DC IV Sodium Chloride 250 ML .STK-MED ONE 10/31 702 DC IV Heparin Sodium 0 .STK-MED ONE 10/31 699 DC .ROUTE Norepinephrine 0 .STK-MED ONE 10/31 699 DC Bitartrate IV Propofol 20 ML .STK-MED ONE 10/31 699 DC IV Rocuronium [place] 0 .STK-MED ONE 10/31 699 DC IV [...] 10/29 1145 DC IV 11/28 1144 Home Medications: ATORVASTATIN (LIPITOR) 40 MG PO BEDTIME DOXAZOSIN (CARDURA) [...] best of my knowledge. at 1650 RPT #:[id number] END OF REPORT [facility] 2022-11-01 12:16:00 [facility] Hospitalist Progress Note REPORT#:[id number] REPORT STATUS: Signed DATE:11/01/22 TIME: 1216 PATIENT: ROBE RITCHIE UNIT #: [id number] ROOM/BED: [place] [id number] : 43 AGE: 77 SEX: M ATTEND: Kristina Hodge MD ADM AUTHOR: Lsi Benson MD * ALL edits or amendments must be made on the electronic/computer document * Subjective Chief complaint: he feel well . no cp no sob HPI: 77 years old male with PMH of parkinson disease , CAD with CABG, afib , DM , HTN and CKD had watchman placement today . LETA show atrial thrombus . procedure was canceled . 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 he complaint of sob for 2 weeks . he had internal bleeding few weeks ago . xarelto stoped . he is on ASA. no cp no fever no cough no nausea no vomiting Review of Systems Constitutional: Denies: fatigue, fever, generalized weakness, lethargy. Respiratory: Denies: pneumonia, productive cough (sputum), SOB, wheezing. Cardiovascular: Denies: chest pain, GONZALEZ (dyspnea on exertion), edema, orthopnea, palpitations. GI: Denies: abdominal pain, nausea, vomiting. Neuro: Denies: confusion, dizziness. Objective General VS/I O: Vital Signs: Date Time Temp Pulse Resp [...] Urine 390 400 PATIENT WEIGHT: Weight (lb): 231 Weight (oz): 4.24 Weight (kg): 104.900 Medications: Active Meds + DC'd Last 24 Hrs Docusate Sodium (COLACE) 100 MG DAILY PO [...] 0.1MG/ML SYR) 0.5 MG ASDIR PRN IV (DC ) Sodium Chloride (SODIUM CHLORIDE 0.9%) 500 ML ASDIR PRN IV (DC) Sodium Chloride (SODIUM CHLORIDE) 5 ML ASDIR PRN IV (DC) Sodium Chloride (SODIUM CHLORIDE) 10 ML ASDIR PRN IV (DC) Physical Exam General appearance: alert, awake, oriented Head/Eyes: atraumatic, normal conjunctiva/sclera, normal eyelids/periorb., normocephalic Neck: full range of motion, non-tender, no JVD Cardiovascular: bradycardic, normal heart sounds Respiratory: aerating well, clear to auscultation Abdomen: non-tender, normal bowel sounds, soft, no distention Extremities: moves all, no calf tenderness, no edema Neuro/FLOOR COVERING LAYER: alert, oriented X 3, CNII-XII intact, normal speech, no motor deficits, no sensory deficits Skin: dry, intact Results Findings/Data: Laboratory Tests 11/01 11/01 11/01 10/31 0752 0752 [...] % (Auto) (14.0 - 32.0 %) 14.2 [place] % (Auto) (4.8 - 9.0 %) 7.6 Eos % (Auto) (0.3 - 3.7 %) 6.6 H Baso % (Auto) (0.0 - 2.0 %) 0.9 Neut # (Auto) (2.0 - 7.6 x10 3/uL) 3.83 Lymph # (Auto) (1.0 - 3.8 x10 3/uL) 0.77 L [place] # (Auto) (0.1 - 0.8 x10 3/uL) [...] (0.0 - 0.1 x10 3/uL) 0.00 Radiology data: Recent Impressions: ULTRASOUND - DUP VEIN MARIE 11/01 1058 Report Impression - Status: SIGNED Entered: 11/01/2022 1109 IMPRESSION: No evidence of deep vein thrombosis. Impression By: Ely Leon M.D. ULTRASOUND - US RETROPERITONEAL COM 11/01 1100 Report Impression - Status: SIGNED Entered: 11/01/2022 1115 IMPRESSION: 1. No acute renal abnormality. 2. Ascites. Impression By: Ely Leon M.D. Diagnosis, Assessment Plan Consultants: cardiology, nephrology Free Text DxA P Notes Free text DxA P notes: atrial thrombus afib bradycardia DM HTN CKD parkinson's disease Hx of bleeding atrial thrombus /afib/ bradycardia tele HR -- 40 -- manage as cardiology hematology consult -- longterm AC start eliuis now DM-- hold metformin [...] tele Quality: Gen Med Crit Care Current Medications Current medication review: Current Medications Sig/Denice Start time [...] .STK-MED ONE 10/31 07 DC IV Rocuronium [place] 0 .STK-MED ONE 10/31 0700 DC IV [...] 10/29 1145 DC IV 11/28 1144 Home Medications: ATORVASTATIN (LIPITOR) 40 MG PO BEDTIME DOXAZOSIN (CARDURA) [...] best of my knowledge. at 1802 RPT #:[id number] END OF REPORT [facility] 2022-11-01 10:59:00 [facility] ([facility]) EP Progress Note REPORT#:[id number] REPORT STATUS: Signed DATE:11/01/22 TIME: 1058 PATIENT: ROBE RITCHIE JR UNIT #: [id number] ROOM/BED: [place] [id number] : 43 AGE: 77 SEX: M ATTEND: Kristina Hodge MD ADM AUTHOR: Wade Altman * ALL edits or amendments must be made on the electronic/computer document * Wade Altman 11/01/22 1059: Objective General VS/I O Last Documented: Result Date Time Pulse Ox 92 [...] Urine 390 400 PATIENT WEIGHT: Weight (lb): 231 Weight (oz): 4.24 Weight (kg): 104.900 Medications: Active Meds + DC'd Last 24 Hrs Docusate Sodium (COLACE) 100 MG DAILY PO [...] 0.1MG/ML SYR) 0.5 MG ASDIR PRN IV (DC ) Sodium Chloride (SODIUM CHLORIDE 0.9%) 500 ML [...] 250 ML ASDIR PRN IV (DC) Physical Exam General appearance: alert, awake, oriented Cardiovascular: CV assessment: bradycardia, irregular rhythm Respiratory: on oxygen, no distress Abdomen: soft, non-tender Extremities: moves all Neuro/FLOOR COVERING LAYER: alert, oriented X 3 Findings/Data: Laboratory Tests: 11/01 11/01 11/01 10/31 0752 0752 [...] % (Auto) (14.0 - 32.0 %) 14.2 [place] % (Auto) (4.8 - 9.0 %) 7.6 Eos % (Auto) (0.3 - 3.7 %) 6.6 H Baso % (Auto) (0.0 - 2.0 %) 0.9 Neut # (Auto) (2.0 - 7.6 x10 3/uL) 3.83 Lymph # (Auto) (1.0 - 3.8 x10 3/uL) 0.77 L [place] # (Auto) (0.1 - 0.8 x10 3/uL) [...] x10 3/uL) 0.00 Laboratory Tests 11/01 11/01 9442 9780 Chemistry Magnesium (1.80 - 2.40 mg/dL) 2.17 B-Natriuretic Peptide (0 - 100 PG/ML) 295.0 H Diagnosis, Assessment Plan Free Text A P: 1. Bradycardia -currently Afib 30s-50s -no AVN-blocking meds -asymptomatic -no indication for PPM at this time -ok to d/c from EP standpoint 2. Afib -s/p aborted attempt for LAAO via WATCHMAN per -s/p LETA, RICO thrombus -no AA therapy -AC eliquis 3. CHF -per cardio, LVEF nml Consultants: cardiology, nephrology Aramis Thomas 11/05/22 1309: Attestations Physician Attestation Agree w/findings plan: Patient with symptoms of SOB, fatigued, tiredness for the last weeks. HR has been in 30s-40s even at home, no AVN blocking agents. 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 He is a candidate for PPM pacement EF in 03/2022 was preserved> 50%. at 0655 at 1312 RPT #:[id number] END OF REPORT [facility] 2022-11-01 08:12:00 [facility] Cardiology Progress Note REPORT#:[id number] REPORT STATUS: Signed DATE:11/01/22 TIME: 811 PATIENT: ROBE RITCHIE UNIT #: [id number] ROOM/BED: [address] : [address] AGE: 77 SEX: M ATTEND: Kristina Hodge MD ADM AUTHOR: Cynthia Silver * ALL edits or amendments must be made on the electronic/computer document * Subjective Comments: Slow afib at night low 30s, 40-50s when awake Objective General VS/I O: 24 hour I O ending at 0700: [...] Nasal 2 cannula PATIENT WEIGHT: Weight (lb): 231 Weight (oz): 4.24 Weight (kg): 104.900 Medications: Active Meds + DC'd Last 24 Hrs Docusate Sodium (COLACE) 100 MG DAILY PO [...] 250 ML ASDIR PRN IV (DC) Physical Exam General appearance: obese, alert, awake, oriented Neck: non-tender, no JVD Cardiovascular: CV assessment: bradycardia, irregular rhythm, pedal edema Respiratory: decreased breath sounds, no distress Abdomen: soft, non-tender Genitourinary: no flank pain, no urinary catheter Lower extremity: LE assessment: edema Musculoskeletal: normal inspection Neuro/FLOOR COVERING LAYER: alert, oriented X 3, normal speech Skin: dry, some erythema of BLE Psychiatry: normal affect, normal mood Results Findings/Data: Laboratory Tests 11/01 10/31 10/31 0500 1858 0852 Chemistry POC Glucose (70 - 110 MG/DL) 146 H 181 H 114 H Laboratory Tests 11/01/22 0752: [Embedded Image Not Available] Results: labs reviewed, vital signs reviewed Telemetry Interpretation: afib with slow ventricular rate Diagnosis, Assessment Plan Problem List/A P: 1. Atrial fibrillation 2. KRISTI (acute kidney injury) 3. Hx of CABG 4. Diastolic CHF Plan discussed with: patient, consultants (EP), nurse Free Text DxA P Notes Free Text DxA P Notes: 77 YO male with PMHx of CAD s/p [...] 1. Chronic atrial fibrillation - slow A. fib Watchman halted due to left atrial thrombus on Eliquis 2.5 mg twice a day Hold amiodarone due to bradycardia telemetry - monitor for sick sinus syndrome Repeat Echo in a month to eval LA clot EP consult for slow afib 2. Left atrial thrombus Eliquis 2.5 mg BID 3. KRISTI on CKD creatinine 3.4->3.0, unclear baseline kidney function Nephrology following 4. Acute on chronic diastolic CHF Echo with normal EF, mild BNP 295 Diuresis per nephrology, currently in IV Lasix 60 mg Q8H 5. CAD with prior 3V CABG no BB due to bradycardia continue ASA and statin 6. Lower extremity edema d/t fluid overload on IV lasix will also get LE venous doppler to r/o DVT 7. Hypertension normotensive monitor off BP meds hold ACEI d/t KRISTI, no BB d/t bradycardia 8. History of GIB bleed hgb 9.2->9 9. CXR showed RLL opacity/pleural effusion WBC normal, no fever could be 2/2 volume overload, on IV Lasix Pulmo with planned for thoracentesis Tx plan discussed in indepth with patient. at 1513 at 2338 RPT #:[id number] END OF REPORT [facility] 2022-11-01 07:34:00 [facility] Nephrology Progress Note REPORT#:[id number] REPORT STATUS: Signed DATE:11/01/22 TIME: 733 PATIENT: ROBE RITCHIE UNIT #: [id number] ROOM/BED: [place] [id number] : 43 AGE: 77 SEX: M ATTEND: Kristina Hodge MD ADM AUTHOR: Sherly Gomes MD * ALL edits or amendments must be made on the electronic/computer document * Subjective Chief complaint: For watchman device HPI: Patient seen and evaluated, discussed with care team, 77-year-old male with history of diabetes mellitus, hypertension, hyperlipidemia, chronic kidney disease followed by [facility] in [place] and [facility] [place] who presented for watchman's [...] management of his elevated BUN and creatinine. Patient reports: Yes: complaints. Comments: Patient seen and evaluated, HPI no change from initial, feels better. Review of Systems Constitutional: Reports: fatigue. Denies: chills, fever. Skin: Reports: swelling. Denies: rash. Allergy/Immun: Denies: hives, itching. Eyes: Denies: redness, discharge. ENT: Denies: ear drainage, ear ringing. Respiratory: Reports: SOB. Denies: hemoptysis. Cardiovascular: Denies: chest pain. Objective General VS/I O: Vital Signs: Date Time Temp Pulse Resp [...] Urine 390 400 PATIENT WEIGHT: Weight (lb): 231 Weight (oz): 4.24 Weight (kg): 104.900 Medications Active Meds + DC'd Last 24 Hrs Docusate Sodium (COLACE) 100 MG DAILY PO [...] 250 ML ASDIR PRN IV (DC) Physical Exam General appearance: alert, no acute distress Head/eyes: atraumatic, normocephalic ENT: normal nose Neck: non-tender, supple/no meningismus Cardiovascular: normal heart sounds, no rub Respiratory: aerating well, symmetric expansion Abdomen: non-tender, soft Genitourinary: no flank pain, no urinary catheter Extremities: pitting edema, non-tender Musculoskeletal: no CVA tenderness, no tenderness Neuro/FLOOR COVERING LAYER: alert, normal speech Skin: dry, intact Results Findings/Data: Laboratory Tests 11/01 10/31 10/31 10/31 10/29 0500 [...] % (Auto) (14.0 - 32.0 %) 14.6 [place] % (Auto) (4.8 - 9.0 %) 8.2 Eos % (Auto) (0.3 - 3.7 %) 2.8 Baso % (Auto) (0.0 - 2.0 %) 0.9 Neut # (Auto) (2.0 - 7.6 x10 3/uL) 4.21 Lymph # (Auto) (1.0 - 3.8 x10 3/uL) 0.84 L [place] # (Auto) (0.1 - 0.8 x10 3/uL) [...] H 181 H 114 H Diagnosis, Assessment Plan Free Text A P: Patient seen and evaluated, discussed with care team, images and laboratories reviewed. History of hypertension: On doxazosin/hydralazine and lisinopril: We will hold lisinopril: Multiple pressure closely and adjust medications as needed History of diabetes mellitus: On Farxiga at, will DC due to low GFR. History of hyperlipidemia History of A. fib: On amiodarone, presented for watchman's device, however LETA showed atrial thrombus, procedure was aborted and patient will receive anticoagulation with Eliquis. 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 Possible acute kidney injury component, will check urinalysis, check urine protein creatinine ratio, check renal bladder ultrasound. Shortness of breath with lower extremity edema: We will give Lasix 60 mg IV every 8 hours x3 doses. 11/01/2022 laboratories this morning not done yet, will check results when available, will give 3 more doses of IV Lasix 60 mg every 8 hours. Sodium 139, potassium 5, CO2 24, BUN 63, creatinine 3 down from 3.4 improving, hemoglobin 9, platelet 179, blood count 5.4 Consultants: cardiology, nephrology at 0941 RPT #:[id number] END OF REPORT [facility] 2022-10-31 16:58:00 [id number] [place], [place] [address] PATIENT NAME: ROBE RITCHIE JR ADMIT DATE: 10/31/22 ACCOUNT NO: [id number] ROOM NO: [id number] AGE: 77 REPORT TYPE: [...] as well as atrial fibrillation. PAST MEDICAL HISTORY: 1. Chronic atrial fibrillation, previously on anticoagulation with Xarelto. 2. Coronary artery disease, status post CABG. 3. Diabetes type 2. 4. Hypertension. 5. CKD. PAST SURGICAL HISTORY: CABG. SOCIAL HISTORY: No smoking, alcohol or illicit drug use. FAMILY HISTORY: No history of malignancies or hematologic disorders. ALLERGIES: PENICILLIN AND CODEINE. REVIEW OF SYSTEMS: A 14-point review of systems noted to be negative unless otherwise mentioned in HPI. PHYSICAL EXAMINATION: VITAL SIGNS: Blood pressure 133/64, pulse 58, respiratory rate 14, temperature 36.3 degrees, O2 saturation 100% on 2 liters nasal cannula. GENERAL: Pleasant elderly gentleman, in no acute distress. HEENT: Normocephalic, atraumatic. NECK: Supple, no JVD, no carotid bruit. LUNGS: Decreased breath sounds bilaterally. HEART: S1, S2 positive. Irregularly irregular, bradycardic. PATIENT NAME: ROBE RITCHIE JR ABDOMEN: Soft, nontender, nondistended. Bowel sounds positive. EXTREMITIES: +2 pitting edema in bilateral lower extremities. NEUROLOGIC: Grossly nonfocal. SKIN: No rash or bruising seen. PSYCHIATRIC: The patient is awake and oriented to time, person, and place. LABORATORY DATA AND DIAGNOSTIC STUDIES: Sodium 141, potassium 5, chloride 105, bicarbonate 25, BUN 69, creatinine 3.4, glucose 107, calcium 9.5. CBC: WBC 5.0, hemoglobin 9.2, hematocrit 30.3, platelets 191,000, MCV 81.9, RDW 16.3. PT 13.6, INR 1.2. Chest x-ray on 10/29/2022, moderate right lower lobe opacity, possibly pneumonia. Small right pleural effusion. ASSESSMENT: 1. 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 2. Previous history of anticoagulation with recent GI bleed. Suspect underlying acute iron deficiency anemia. 3. Acute on chronic kidney disease. 4. Acute on chronic diastolic congestive heart failure. 5. History of coronary artery disease status post coronary artery bypass graft. 6. Hypertension. 7. Question of a right lower lobe pneumonia. PLAN: 1. Continue anticoagulation recommendations as per cardiology. Suspect left atrial thrombus secondary to underlying atrial fibrillation. No necessity for hypercoagulable workup. Currently, started on Eliquis 2.5 mg oral twice daily given renal insufficiency. 2. Check iron panel/ferritin. Can provide parenteral iron if need be. 3. Nephrology consultation appreciated. Creatinine elevated 3.4, baseline unknown. Currently receiving Lasix 60 mg IV q. 8 hours. 4. Bilateral lower extremity ultrasound to rule out deep vein thrombosis. 5. Other medical management as per primary team. Thank you for the consultation. We will follow along side as the patient remains hospitalized. Dictated By: Carlos Alberto Barfield MD Date Dictated: 10/31/2022 16:58:17 Date Transcribed: 10/31/2022 17:21:47 PR/[facility] Receipt ID: [id number] Authenticated by Carlos Alberto Barfield MD On 12/03/2022 06:50:11 PM at 0650 PATIENT NAME: ROBE RITCHIE JR [facility] 2022-10-31 16:54:00 [facility] ([facility]) Pulmonary Consultation Note REPORT#:[id number] REPORT STATUS: Signed DATE:10/31/22 TIME: 1653 PATIENT: ROBE RITCHIE UNIT #: [id number] ROOM/BED: [place] [id number] : 43 AGE: 77 SEX: M ATTEND: Kristina Hodge MD ADM AUTHOR: Taylor Lowery MD * ALL edits or amendments must be made on the electronic/computer document * History of Present Illness HPI HPI: Patient is a 77-year-old male with Parkinson, coronary disease, CABG, A. fib Presented today for evaluation for watchman procedure LETA showed arterial thrombosis, procedure was canceled, he has been off Xarelto for 3 weeks He developed internal GI bleed and since then he had not have the Xarelto He denies any fever or chills, no coughing, no wheezing No recent sick contact or travel He had pulmonary edema in the past, pleural effusion but he never had thoracentesis Chest x-ray looks abnormal He admitted to have lower extremity edema, orthopnea, and PND History - Adult longitudinal Past medical history: Reports: Atrial fibrillation, Coronary artery disease, Diabetes mellitus, Hypertension, Kidney disease/stones, GI bleed. Denies: Ischemic stroke. Additional medical history: Cardioversion Past surgical history: Reports: CABG. Alcohol use: Denies EtOH use Drug use: Denies recreational drugs Smoking status for patients 13 years old or older: Never Smoker Medications: Home Medications: Medication Dose/Rte/Freq Days Qty Entered Last Max Daily Dose Reviewed ATORVASTATIN (LIPITOR) 40 MG PO BEDTIME 08/25/13 10/31/22 Strength: 40 MG TAB 0929 0657 DOXAZOSIN (CARDURA) 2 MG PO BEDTIME 08/25/13 10/31/22 Strength: 2 MG TAB 0930 0657 ASPIRIN 81 MG PO BEDTIME 08/25/13 10/31/22 Strength: 81 MG TAB.CHEW 0935 0657 Dapagliflozin Propanediol 5 MG PO DAILY 10/29/22 10/31/22 (FARXIGA) 1102 0657 Strength: 5 MG TAB FUROSEMIDE (LASIX) 20 MG PO 10/29/22 10/31/22 Strength: 40 MG TAB DAILY PRN EDEMA 1103 0657 hydrALAZINE (APRESOLINE) 25 MG PO TID 10/29/22 10/31/22 Strength: 25 MG TAB 1103 0657 LISINOPRIL (ZESTRIL) 20 MG PO DAILY 10/29/22 10/31/22 Strength: 40 MG TAB 1103 0657 GABAPENTIN (NEURONTIN) 300 MG PO BEDTIME 10/29/22 10/31/22 Strength: 300 MG CAP 1103 0657 PRAMIPEXOLE DI-HCL 0.25 MG PO TID 10/29/22 10/31/22 (MIRAPEX) 1104 0657 Strength: 0.25 MG TAB [AREDS N2 EYES] 1 CAP PO BID 10/29/22 10/31/22 Strength: 1105 0657 CARBIDOPA/LEVODOPA 2 TAB PO TID 10/29/22 10/31/22 (SINEMET 25/100 MG) 1105 0657 Strength: 25 MG-100 MG TAB SODIUM BICARBONATE 650 MG PO BID 10/29/22 10/31/22 Strength: 650 MG TAB 1106 0657 UMECLIDINIUM 1 PUFF INH RTDAILY 10/29/22 10/31/22 BRM/VILANTEROL TR 1124 0657 (ANORO ELLIPTA 62.5-25 MCG INH) Strength: 62.5 MCG-25 MCG/ACTUATION INHALER AMIODARONE (PACERONE) 200 MG PO DAILY 10/29/22 10/31/22 Strength: 200 MG TAB 1124 0657 [PREVAGEN EXT STRENGT] 1 PO DAILY 10/29/22 10/31/22 Strength: 1126 0657 [BALANCE FRUIT] 3 TAB PO DAILY 10/29/22 10/31/22 Strength: 1127 0657 [BALANCE VEGGIES] 3 TAB PO DAILY 10/29/22 10/31/22 Strength: 1127 0657 [MINERALS IMMUNO 150] 3 TAB PO DAILY 10/29/22 10/31/22 Strength: 1127 0657 UBIDECARENONE (CO Q-10) (Unknown Dose) PO 10/29/22 10/31/22 Strength: (Unknown DAILY 1127 0657 Strength) CAP DOCUSATE SODIUM 100 MG PO DAILY 10/29/22 10/31/22 (COLACE) 1251 0657 Strength: 100 MG CAP Current Hospital Medications: Anti-Infective Agents Sig/Denice Start time Last Medication Dose Route Stop Time Status Admin Vancomycin HCl 0 .STK-MED ONE 10/31 734 DC 10/31 (VANCOMYCIN HCL) .ROUTE 0751 Autonomic Drugs Sig/Denice Start time Last Medication Dose Route Stop Time Status Admin Atropine Sulfate 0.5 MG ASDIR PRN 10/31 0830 AC (ATROPINE SULFATE IV 11/01 821 0.1MG/ML SYR) Norepinephrine 0 .STK-MED ONE 10/31 699 DC Bitartrate IV (LEVOPHED BITARTATE) Rocuronium [place] 0 .STK-MED ONE 10/31 699 DC (ZEMURON) IV Blood Formation,Coagulation Sig/Denice Start time Last Medication Dose Route Stop Time Status Admin Apixaban 2.5 MG BID 10/31 09 AC (ELIQUIS 2.5MG PO 11/30 0859 TABLET) Heparin Sodium 0 .STK-MED ONE 10/31 07 DC (HEPARIN SODIUM) .ROUTE Heparin Sodium [address] ONE 10/31 699 DC (HEPARIN SODIUM) .ROUTE Heparin Sodium [address] ONE 10/31 06 DC 10/31 (HEPARIN SODIUM) .ROUTE 0751 Heparin [...] (LIPITOR) PO 11/30 2058 Lidocaine HCl 0 .ST-MED ONE 10/31 0643 DC (XYLOCAINE) .ROUTE Lidocaine [...] 10/31 1500 AC 10/31 (SINEMET-25 100) PO 02/10 1459 1542 Pramipexole 0.25 MG TID 10/31 1500 AC 10/31 Dihydrochloride PO 11/30 1459 1543 (MIRAPEX) Propofol [address] ONE 10/31 0700 DC (DIPRIVAN 200MG/20ML IV INJECTION) Acetaminophen 0 .[facility] ONE 10/31 0643 DC (TYLENOL EXTRA .ROUTE STRENGTH) Gabapentin [address] ONE 10/31 0643 DC (NEURONTIN) .ROUTE Acetaminophen [...] IN IV 11/30 1159 WATER) Furosemide [address] ONE 10/31 1045 DC (LASIX 20MG INJ) .ROUTE Furosemide 0 .[facility] ONE 10/31 1043 DC (LASIX 20MG INJ) .ROUTE Furosemide 60 MG Q8HR 10/31 0945 AC 10/31 (LASIX 40 mg/4 mL IV 10/31 2201 1542 INJECTION) Sodium Chloride 250 ML ASDIR PRN 10/31 0945 AC (SODIUM CHLORIDE IV 11/30 0944 0.9%) Sodium Chloride 500 ML ASDIR PRN 10/31 0830 AC (SODIUM CHLORIDE IV 11/01 0822 0.9%) Sodium Chloride [address] ONE 10/31 0703 DC (SODIUM CHLORIDE IV [...] .STK-MED ONE 10/31 0715 DC (BRIDION) IV Allergies: Coded Allergies: Penicillins (Severe, RASHES 08/28/13) codeine (Severe, ITCHING 08/28/13) Ambulatory status: Independent Review of Systems All systems rev neg: except as marked Objective Physical Exam Vitals: Last Documented: Result Date Time O2 Delivery Nasal cannula 10/31 1449 O2 Flow Rate 2 10/31 1449 Pulse Ox 100 10/31 0700 B/P 133/64 10/31 699 Temp 36.3 10/31 699 Pulse 58 10/31 07 Resp 20 10/31 699 Results Results: x-ray personally reviewed Free Text Obj Notes Free Text Obj Notes: General appearance: alert, awake, oriented Head/Eyes: atraumatic, normocephalic, PERRLA Neck: full range of motion, non-tender, normal thyroid Cardiovascular: normal heart sounds, normal S1/S2, regular rate rhythm Respiratory/chest: aerating well, clear to auscultation, symmetric expansion Abdomen: soft, non-tender, normal bowel sounds Genitourinary: no bladder distention, no flank pain Extremities: No edema, moves all, normal capillary refill, no calf tenderness Musculoskeletal: full range of motion, normal inspection, painless range of motion, straight leg raise neg Skin: dry, intact, normal color Diagnosis, Assessment Plan Diagnosis, Assessment Plan Consultants: cardiology, nephrology Free Text DxA P Notes Free Text DxA P Notes: 1. Pleural effusion #2 pulmonary edema #3 CHF exacerbation #4 CKD #5 atrial thrombosis #6 history of GI bleed Patient presented for watchman procedure LETA revealed atrial thrombosis, the procedure was canceled He is in CHF exacerbation with volume overload status, secondary to CKD as well Chest x-ray showed right-sided pleural effusion with atelectasis, There is bilateral infiltrates most consistent with pulm edema Pneumonia is unlikely he has no respiratory symptoms to suggest pneumonia and he has no fever, no leukocytosis or left shift We will plan right-sided thoracentesis I recommend diuresis Repeat chest x-ray tomorrow Thank you for the consult at 1657 RPT #:[id number] END OF REPORT [facility] 2022-10-31 13:24:00 [facility] ([facility]) Cardiology Consultation REPORT#:[id number] REPORT STATUS: Signed DATE:10/31/22 TIME: 1324 PATIENT: ROBE RITCHIE UNIT #: [id number] ROOM/BED: [place] [id number] : 43 AGE: 77 SEX: M ATTEND: Kristina Hodge MD ADM AUTHOR: Cynthia Silver AGACNP * ALL edits or amendments must be made on the electronic/computer document * History of Present Illness HPI Requesting Clinician: Dr. Dailey Reason for consult: Atrial fibrillation intolerant of anticoagulation Chief complaint: Atrial fibrillation PCP: PCP: Manuel Gandhi MD HPI: 77 YO male with PMHx of CAD s/p [...] bilateral lower extremity, appear short of breath. playground monitor showed slow atrial fibrillation down in the 30-40s range during sleep, when awake HR is in the 50s. Blood pressure is stable. History - Adult longitudinal Past medical history: Reports: Atrial fibrillation, Coronary artery disease, Diabetes mellitus, Hypertension, Kidney disease/stones, GI bleed. Denies: Ischemic stroke. Additional medical history: Cardioversion Past surgical history: Reports: CABG. Alcohol use: Denies EtOH use Drug use: Denies recreational drugs Smoking status for patients 13 years old or older: Never Smoker Home medications: Home Medications: ATORVASTATIN (LIPITOR) 40 MG PO BEDTIME DOXAZOSIN (CARDURA) [...] DOCUSATE SODIUM (COLACE) 100 MG PO DAILY Allergies: Coded Allergies: Penicillins (Severe, RASHES 08/28/13) codeine (Severe, ITCHING 08/28/13) Ambulatory status: Independent Review of Systems Respiratory: Reports: SOB. Cardiovascular: Denies: chest pain. GI: Denies: abdominal pain, nausea. Musculoskeletal: extremity swelling. Neuro: Denies: change in LOC, confusion, dizziness, syncope, weakness. Objective General VS/I O: Vital Signs: Date Time Temp Pulse Resp B/P B/P Pulse O2 O2 Flow FiO2 Mean Ox Delivery Rate 10/31 0840 Nasal 2 cannula 10/31 0705 Nasal 2 cannula 10/31 0700 36.3 58 20 133/64 100 Nasal 2 cannula PATIENT WEIGHT: Weight (lb): 231 Weight (oz): 4.24 Weight (kg): 104.900 Medications: Active Meds + DC'd Last 24 Hrs Docusate Sodium (COLACE) 100 MG DAILY PO [...] 20 ML .STK-MED ONE IV (DC) Rocuronium [place] (ZEMURON) 0 .STK-MED ONE IV (DC) Heparin Sodium (HEPARIN SODIUM) 0 .STK-MED ONE .ROUTE (DC) Heparin Sodium/Sodium Chloride (HEPARIN 2,000 UNITS/NS 1,000mL) 2,000 ML .STK-MED ONE IV (DC) Heparin Sodium/Sodium Chloride (HEPARIN 1,000 UNITS/NS 500ML) 500 ML .STK- MED ONE IV (DC) Bupivacaine HCl (MARCAINE 0.5%) [...] 250 ML ASDIR PRN IV (DC) Physical Exam General appearance: alert, awake, oriented, no acute distress Neck: non-tender, no JVD Cardiovascular: CV assessment: bradycardia, irregular rhythm, pedal edema Respiratory: decreased breath sounds, no distress Abdomen: soft, non-tender Genitourinary: no flank pain, no urinary catheter Lower extremity: LE assessment: edema Musculoskeletal: normal inspection Neuro/FLOOR COVERING LAYER: alert, oriented X 3, normal speech Skin: dry, some erythema of BLE Psychiatry: normal affect, normal mood Results Findings/Data: Laboratory Tests 10/31 10/31 0852 0632 Chemistry POC Glucose (70 - 110 MG/DL) 114 H 123 H Results: labs reviewed, vital signs reviewed, rhythm personally rev'd Telemetry Interpretation: slow atrial fibrillation Scores [id number] Score [id number] Score [id number] Score Response Value CHF: Yes 1 HTN: Yes 1 age greater than 75 years: Yes 2 diabetes mellitus: Yes 1 Total 5 [id number] HAS-BLED Score HAS-BLED Score Response Value uncontrolled HTN-SBP>160 Yes 1 abn renal fxn/creat>=2.6 No 0 age 65 yrs or greater: Yes 1 bleeding: Yes 1 use of drugs w/bleed risk: Antiplatelet/ASA 325mg 1 Total 4 Diagnosis, Assessment Plan Problem List/A P: 1. Atrial fibrillation 2. KRISTI (acute kidney injury) 3. Hx of CABG 4. Diastolic CHF Plan discussed with: patient, nurse Free Text DxA P Notes Free Text DxA P Notes: 77 YO male with PMHx of CAD s/p [...] 1. Chronic atrial fibrillation - slow A. fib Watchman halted due to left atrial thrombus on Eliquis 2.5 mg twice a day Hold amiodarone due to bradycardia telemetry - monitor for sick sinus syndrome Repeat Echo in a month 2. Left atrial thrombus Eliquis 2.5 mg BID 3. KRISTI on CKD creatinine 3.4, unclear baseline kidney function Nephrology consulted 4. Acute on chronic diastolic CHF Echo with normal EF, mild Check BNP Diuresis per nephrology, currently in IV Lasix 60 mg Q8H 5. CAD with prior 3V CABG no BB due to bradycardia continue ASA and statin 6. Lower extremity edema d/t fluid overload on IV lasix will also get LE venous doppler to r/o DVT 7. Hypertension normotensive monitor off BP meds hold ACEI d/t KRISTI, no BB d/t bradycardia 8. History of GIB bleed hgb 9.2 9. CXR showed RLL opacity WBC normal could be 2/2 volume overload Pulmo consulted to armani for PNA Appreciate the referral. at 1556 at 6150 RPT #:[id number] END OF REPORT [facility] 2022-10-31 11:38:00 [facility] ([facility]) EP Progress Note REPORT#:[id number] REPORT STATUS: Signed DATE:10/31/22 TIME: 1138 PATIENT: ROBE RITCIHE UNIT #: [id number] ROOM/BED: [place] [id number] : 43 AGE: 77 SEX: M ATTEND: Kristina Hodge MD ADM AUTHOR: Wade Altman SENIOR PRODUCT ENGINEER * ALL edits or amendments must be made on the electronic/computer document * See Addendum Wade Altman 10/31/22 1138: Objective General VS/I O Last Documented: Result Date Time O2 Delivery Nasal cannula 10/31 0840 O2 Flow Rate 2 10/31 0840 Pulse Ox 100 10/31 0700 B/P 133/64 10/31 0700 Temp 36.3 10/31 0700 Pulse 58 10/31 0700 Resp 20 10/31 0700 PATIENT WEIGHT: Weight (lb): 231 Weight (oz): 4.24 Weight (kg): 104.900 Medications: Active Meds + DC'd Last 24 Hrs Furosemide (LASIX 20MG INJ) 0 .STK-MED ONE [...] 20 ML .STK-MED ONE IV (DC) Rocuronium [place] (ZEMURON) 0 .STK-MED ONE IV (DC) Heparin Sodium (HEPARIN SODIUM) 0 .STK-MED ONE .ROUTE (DC) Heparin Sodium/Sodium Chloride (HEPARIN 2,000 UNITS/NS 1,000mL) 2,000 ML .STK-MED ONE IV (DC) Heparin Sodium/Sodium Chloride (HEPARIN 1,000 UNITS/NS 500ML) 500 ML .STK- MED ONE IV (DC) Bupivacaine HCl (MARCAINE 0.5%) [...] 0.9%) 250 ML ASDIR PRN IV Physical Exam General appearance: alert, awake, oriented Cardiovascular: CV assessment: irregular rhythm Respiratory: on oxygen, no distress Abdomen: soft, non-tender Extremities: moves all Neuro/FLOOR COVERING LAYER: alert, oriented X 3 Findings/Data: Laboratory Tests: 10/31 10/31 0852 0632 Chemistry POC Glucose (70 - 110 MG/DL) 114 H 123 H Diagnosis, Assessment Plan Free Text A P: 1. Afib -currently 40s-60s -s/p aborted attempt for LAAO via WATCHMAN per -s/p LETA, [place] thrombus identified -AC elodia at 1349 at 1312 at 1423 Addendum 1: 11/05/22 1615 by rAamis Thomas MD at 1616 Addendum 2: 11/07/22 2148 by Aramis Thomas MD at 2149 RPT #:[id number] END OF REPORT [facility] 2022-10-31 09:33:00 [facility] Nephrology Consultation Note REPORT#:[id number] REPORT STATUS: Signed DATE:10/31/22 TIME: 932 PATIENT: ROBE RITCHIE UNIT #: [id number] ROOM/BED: [place] [address] : 43 AGE: 77 SEX: M ATTEND: Kristina Hodge MD ADM AUTHOR: Sherly Gomes MD * ALL edits or amendments must be made on the electronic/computer document * History of Present Illness Requesting clinician: Kristina Hodge Reason for consult: Elevated creatinine Chief complaint: For watchman device HPI: Patient seen and evaluated, discussed with care team, 77-year-old male with history of diabetes mellitus, hypertension, hyperlipidemia, chronic kidney disease followed by [facility] in [place] and [place] who presented for watchman's [...] elevated BUN and creatinine. History - Adult longitudinal Past medical history: Reports: Diabetes mellitus, Hypertension, Kidney disease/stones. Smoking status for patients 13 years old or older: Never Smoker Medications: Home Medications: Medication Dose/Rte/Freq Days Qty Entered Last Max Daily Dose Reviewed ATORVASTATIN (LIPITOR) 40 MG PO BEDTIME 08/25/13 10/31/22 Strength: 40 MG TAB 0929 0657 DOXAZOSIN (CARDURA) 2 MG PO BEDTIME 08/25/13 10/31/22 Strength: 2 MG TAB 0930 0657 ASPIRIN 81 MG PO BEDTIME 08/25/13 10/31/22 Strength: 81 MG TAB.CHEW 0935 0657 Dapagliflozin Propanediol 5 MG PO DAILY 10/29/22 10/31/22 (FARXIGA) 1102 0657 Strength: 5 MG TAB FUROSEMIDE (LASIX) 20 MG PO 10/29/22 10/31/22 Strength: 40 MG TAB DAILY PRN EDEMA 1103 0657 hydrALAZINE (APRESOLINE) 25 MG PO TID 10/29/22 10/31/22 Strength: 25 MG TAB 1103 0657 LISINOPRIL (ZESTRIL) 20 MG PO DAILY 10/29/22 10/31/22 Strength: 40 MG TAB 1103 0657 GABAPENTIN (NEURONTIN) 300 MG PO BEDTIME 10/29/22 10/31/22 Strength: 300 MG CAP 1103 0657 PRAMIPEXOLE DI-HCL 0.25 MG PO TID 10/29/22 10/31/22 (MIRAPEX) 1104 0657 Strength: 0.25 MG TAB [AREDS N2 EYES] 1 CAP PO BID 10/29/22 10/31/22 Strength: 1105 0657 CARBIDOPA/LEVODOPA 2 TAB PO TID 10/29/22 10/31/22 (SINEMET 25/100 MG) 1105 0657 Strength: 25 MG-100 MG TAB SODIUM BICARBONATE 650 MG PO BID 10/29/22 10/31/22 Strength: 650 MG TAB 1106 0657 UMECLIDINIUM 1 PUFF INH RTDAILY 10/29/22 10/31/22 BRM/VILANTEROL TR 1124 0657 (ANORO ELLIPTA 62.5-25 MCG INH) Strength: 62.5 MCG-25 MCG/ACTUATION INHALER AMIODARONE (PACERONE) 200 MG PO DAILY 10/29/22 10/31/22 Strength: 200 MG TAB 1124 0657 [PREVAGEN EXT STRENGT] 1 PO DAILY 10/29/22 10/31/22 Strength: 1126 0657 [BALANCE FRUIT] 3 TAB PO DAILY 10/29/22 10/31/22 Strength: 1127 0657 [BALANCE VEGGIES] 3 TAB PO DAILY 10/29/22 10/31/22 Strength: 1127 0657 [MINERALS IMMUNO 150] 3 TAB PO DAILY 10/29/22 10/31/22 Strength: 1127 0657 UBIDECARENONE (CO Q-10) (Unknown Dose) PO 10/29/22 10/31/22 Strength: (Unknown DAILY 1127 0657 Strength) CAP DOCUSATE SODIUM 100 MG PO DAILY 10/29/22 10/31/22 (COLACE) 1251 0657 Strength: 100 MG CAP Current Hospital Medications: Anti-Infective Agents Sig/Denice Start time Last Medication Dose Route Stop Time Status Admin Vancomycin HCl 0 .STK-MED ONE 10/31 734 DC 10/31 (VANCOMYCIN HCL) .ROUTE 075 Autonomic Drugs Sig/Denice Start time Last Medication Dose Route Stop Time Status Admin Atropine Sulfate 0.5 MG ASDIR PRN 10/31 829 AC (ATROPINE SULFATE IV 11/01 08 0.1MG/ML SYR) Norepinephrine 0 .STK-MED ONE 10/31 699 DC Bitartrate IV (LEVOPHED BITARTATE) Rocuronium [place] 0 .STK-MED ONE 10/31 699 DC (ZEMURON) [...] Stop Time Status Admin Lidocaine HCl [address] ONE 10/31 0643 DC (XYLOCAINE) .ROUTE Lidocaine HCl 2 ML PREOP ONCALL 10/29 1145 AC (LIDOCAINE HCL/PF) LOCAL 11/28 235 Lidocaine HCl 2 ML PREOP ONCALL 10/29 1145 AC (LIDOCAINE HCL/PF) LOCAL 11/28 235 Central Nervous System Agents Sig/Denice Start time Last Medication Dose Route Stop Time Status Admin Propofol [address] ONE 10/31 0700 DC (DIPRIVAN 200MG/20ML IV INJECTION) Acetaminophen [address] ONE 10/31 0643 DC (TYLENOL EXTRA .ROUTE STRENGTH) Gabapentin [address] ONE 10/31 0543 DC (NEURONTIN) .ROUTE Acetaminophen 1,000 MG PREOP ONCALL 10/29 1145 CKD (TYLENOL EXTRA PO 11/28 2358 STRENGTH) Electrolytic, Caloric, And Myranda Sig/Denice Start time Last Medication Dose Route Stop Time Status Admin Sodium Chloride 500 ML ASDIR PRN 10/31 0830 AC (SODIUM CHLORIDE IV 11/01 0822 0.9%) Sodium Chloride [address] ONE 10/31 0703 DC (SODIUM CHLORIDE IV [...] 10/29 1145 AC (SODIUM CHLORIDE IV 11/28 1144 0.9%) Local Anesthetics (Parenteral) Sig/Denice Start time Last Medication Dose Route Stop Time Status Admin Bupivacaine HCl 0 .STK-MED ONE 10/31 0657 DC (MARCAINE 0.5%) .ROUTE Miscellaneous Therapeutic Agen Sig/Denice Start time Last Medication Dose Route Stop Time Status Admin Sugammadex Sodium 0 .STK-MED ONE 10/31 0715 DC (BRIDION) IV Allergies: Coded Allergies: Penicillins (Severe, RASHES 08/28/13) codeine (Severe, ITCHING 08/28/13) Review of Systems Constitutional: Reports: fatigue. Denies: chills, fever. Skin: Reports: swelling. Denies: rash. Allergy/Immun: Denies: hives, itching. Eyes: Denies: redness, discharge. ENT: Denies: ear drainage, ear ringing. Respiratory: Reports: SOB. Denies: hemoptysis. Cardiovascular: Denies: chest pain, palpitations. GI: Denies: abdominal pain, nausea, vomiting. : Denies: dysuria, flank pain. Musculoskeletal: Denies: extremity pain. Heme: Denies: bleeding. Endocrine: Denies: cold intolerance, heat intolerance. Neuro: Denies: change in LOC, syncope. Psych: Denies: agitation, anxiety. Objective General VS/I O: Vital Signs: Date Time Temp Pulse Resp B/P B/P Pulse O2 O2 Flow FiO2 Mean Ox Delivery Rate 10/31 0840 Nasal 2 cannula 10/31 07 Nasal 2 cannula 10/31 07 36.3 58 20 133/64 100 Nasal 2 cannula PATIENT WEIGHT: Weight (lb): 231 Weight (oz): 4.24 Weight (kg): 104.900 Medications: Active Meds + DC'd Last 24 Hrs Apixaban (ELIQUIS 2.5MG TABLET) 2.5 MG BID [...] 20 ML .STK-MED ONE IV (DC) Rocuronium [place] (ZEMURON) 0 .STK-MED ONE IV (DC) Heparin Sodium (HEPARIN SODIUM) 0 .STK-MED ONE .ROUTE (DC) Heparin Sodium/Sodium Chloride (HEPARIN 2,000 UNITS/NS 1,000mL) 2,000 ML .STK-MED ONE IV (DC) Heparin Sodium/Sodium Chloride (HEPARIN 1,000 UNITS/NS 500ML) 500 ML .STK- MED ONE IV (DC) Bupivacaine HCl (MARCAINE 0.5%) [...] 0.9%) 250 ML ASDIR PRN IV Physical Exam General appearance: alert, no acute distress Head/eyes: atraumatic, normocephalic ENT: normal nose Neck: non-tender, supple/no meningismus Cardiovascular: normal heart sounds, no rub Respiratory: aerating well, symmetric expansion Abdomen: non-tender, soft Genitourinary: no flank pain, no urinary catheter Extremities: pitting edema, non-tender Musculoskeletal: no CVA tenderness, no tenderness Neuro/FLOOR COVERING LAYER: alert, normal speech Skin: dry, intact Results Findings/Data: Laboratory Tests 10/31 10/31 10/29 0852 0632 1050 [...] % (Auto) (14.0 - 32.0 %) 14.6 [place] % (Auto) (4.8 - 9.0 %) 8.2 Eos % (Auto) (0.3 - 3.7 %) 2.8 Baso % (Auto) (0.0 - 2.0 %) 0.9 Neut # (Auto) (2.0 - 7.6 x10 3/uL) 4.21 Lymph # (Auto) (1.0 - 3.8 x10 3/uL) 0.84 L [place] # (Auto) (0.1 - 0.8 x10 3/uL) [...] (0.0 - 0.1 x10 3/uL) 0.00 Recent Impressions: RADIOLOGY - XR CHEST 2 V 10/29 1225 Report Impression - Status: SIGNED Entered: 10/29/2022 1252 IMPRESSION: 1. Moderate right lower lobe opacity, possibly pneumonia. 2. Small right pleural effusion. Impression By: [email or web address] - Ronald Escalante M.D. Laboratory Tests 10/31 10/31 0852 0632 Chemistry POC Glucose (70 - 110 MG/DL) 114 H 123 H Diagnosis, Assessment Plan Free Text DxA P Notes Free text DxA P notes: Patient seen and evaluated, discussed with care team, images and laboratories reviewed. History of hypertension: On doxazosin/hydralazine and lisinopril: We will hold lisinopril: Multiple pressure closely and adjust medications as needed History of diabetes mellitus: On Farxiga at, will DC due to low GFR. History of hyperlipidemia History of A. fib: On amiodarone, presented for watchman's device, however LETA showed atrial thrombus, procedure was aborted and patient will receive anticoagulation with Eliquis. 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 Possible acute kidney injury component, will check urinalysis, check urine protein creatinine ratio, check renal bladder ultrasound. Shortness of breath with lower extremity edema: We will give Lasix 60 mg IV every 8 hours x3 doses. at 0942 [facility] #:[id number] END OF REPORT [facility] 2022-10-31 09:18:00 [facility] ([facility]) Hospitalist History Physical REPORT#:[id number] REPORT STATUS: Signed DATE:10/31/22 TIME: 917 PATIENT: ROBE RITCHIE UNIT #: [id number] ROOM/BED: [place] [id number] : 43 AGE: 77 SEX: M ATTEND: Kristina Hodge MD ADM AUTHOR: Lis Benson MD * ALL edits or amendments must be made on the electronic/computer document * History of Present Illness HPI Chief complaint: atrial thrombus HPI: 77 years old male with PMH of parkinson disease , CAD with CABG, afib , DM , HTN and CKD had watchman placement today . LETA show atrial thrombus . procedure was canceled . 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 he complaint of sob for 2 weeks . he had internal bleeding few weeks ago . xarelto stoped . he is on ASA. no cp no fever no cough no nausea no vomiting History Social History Smoking status for patients 13 years old or older: Never Smoker Medication/Allergy-Vaccine Hx Allergies: Coded Allergies: Penicillins (Severe, RASHES 08/28/13) codeine (Severe, ITCHING 08/28/13) Review of Systems Constitutional: Denies: fatigue, fever, lethargy. Respiratory: Reports: GONZALEZ (dyspnea on exertion), SOB. Denies: non productive cough, wheezing. Cardiovascular: Denies: chest pain, GONZALEZ (dyspnea on exertion), edema, orthopnea, palpitations. GI: Denies: abdominal pain, nausea, vomiting. : Denies: dysuria, flank pain. Neuro: Denies: confusion, dizziness. Physical Exam VS/I O: Vital Signs Date Temp Pulse Resp B/P B/P [...] General appearance: alert, awake, oriented, no acute distress Head/Eyes: atraumatic, normal conjunctiva/sclera, normal eyelids/periorb., normocephalic Neck: full range of motion, non-tender, no JVD Cardiovascular: bradycardic, normal heart sounds Respiratory: aerating well, clear to auscultation Abdomen: non-tender, normal bowel sounds, soft, no distention Extremities: moves all, no calf tenderness, no edema Neuro/FLOOR COVERING LAYER: alert, oriented X 3, CNII-XII intact, normal speech, no motor deficits, no sensory deficits Skin: dry, intact Results Findings/Data: Laboratory Tests 10/31 10/31 10/29 0852 0632 1050 [...] % (Auto) (14.0 - 32.0 %) 14.6 [place] % (Auto) (4.8 - 9.0 %) 8.2 Eos % (Auto) (0.3 - 3.7 %) 2.8 Baso % (Auto) (0.0 - 2.0 %) 0.9 Neut # (Auto) (2.0 - 7.6 x10 3/uL) 4.21 Lymph # (Auto) (1.0 - 3.8 x10 3/uL) 0.84 L [place] # (Auto) (0.1 - 0.8 x10 3/uL) [...] 123 H Diagnosis, Assessment Plan Free Text A P: atrial thrombus afib bradycardia DM HTN CKD parkinson's disease Hx of bleeding atrial thrombus /afib/ bradycardia tele HR -- 40 -- manage as cardiology hematology consult -- longterm AC start eliuis now DM-- hold metformin now -- sliding scale HTN -- stop lisinopril-- due to CKD -- hold hydralazine -- monitor BP -- well control now CKD-- nephrology consult Consultants: cardiology, nephrology Quality: Gen Med Crit Care Current Medications Current medication review: Current Medications Sig/Denice Start time [...] .STK-MED ONE 10/31 699 DC IV Rocuronium [place] 0 .STK-MED ONE 10/31 699 DC IV Heparin Sodium 0 .STK-MED ONE 10/31 0658 DC 10/31 .ROUTE 0751 Heparin Sodium/ 2,000 ML .STK-MED ONE 10/31 0658 DC 10/31 Sodium Chloride IV 0751 Heparin Sodium/ 500 ML .STK-MED ONE 10/31 0658 DC 10/31 Sodium Chloride IV 0751 Bupivacaine HCl 0 .STK-MED ONE 10/31 06 DC .ROUTE Acetaminophen 0 .STK-MED ONE 10/31 [...] 10/29 1145 DC IV 11/28 1144 Home Medications: ATORVASTATIN (LIPITOR) 40 MG PO BEDTIME DOXAZOSIN (CARDURA) [...] to the best of my knowledge. at 1654 RPT #:[id number] END OF REPORT [facility] 2022-10-29 11:18:00 [id number] [place] [address] PATIENT NAME: ROBE RITCHIE ADMIT DATE: ACCOUNT NO: [id number] ROOM NO: AGE: 77 REPORT TYPE: eELECTROCARDIOGRAM REPORT SEX: M ADMITTING PHYSICIAN:Raoul Dailey MD ATTENDING PHYSICIAN:Raoul Dailey MD Order: [id number] Test Reason : PAT Test Date/Time Stamp: SatOct 29 2022 11:18:18 Blood Pressure : / mmHG Vent. Rate : 054 BPM Atrial Rate : 015 BPM P-R Int : 000 ms QRS Dur : 086 ms QT Int : 446 ms P-R-T Axes : 000 -44 087 degrees QTc Int : 422 ms Atrial fibrillation with slow ventricular response Left axis deviation Nonspecific T wave abnormality Abnormal ECG PRE_OP Confirmed by OPAL CERVANTES MD ([id number]) on 10/29/2022 12:06:18 PM Referred By: Raoul Dailey Confirmed by:OPAL CERVANTES MD at 1206 PATIENT NAME: ROBE RITCHIETON [facility]
[2024-05-24 16:00] LABS: Absolute Basophils 0.1 K/uL (0-0.5); Absolute Eosinophils 0.2 K/uL (0-0.5); Absolute Monocytes 0.5 K/uL (0.1-1.3); Absolute Neutrophil 6.1 K/uL (1.8-8.0); Basophils % 0.7 % (0-1.3); Hematocrit 38.7 % (39.6-49.0); Hemoglobin 12.2 g/dL (13.6-17.9); Lymphocytes % 13.1 % (15.3-44.8); MCH 25.6 pg (27.0-35.0); MCHC 31.6 g/dL (32.0-36.0); MPV 7.9 fL (7.6-11.3); Monocytes % 6.5 % (3.3-12.3); Neutrophils % 77.7 % (41.7-73.7); Nucleated Red Blood Cells % 0.4 % (0-0); Platelets 164 thou/uL (152-406); RBC Red Blood Cell Count 4.78 M/uL (4.33-5.43); Red Cell Distribution Width 22.2 % (12.1-15.2)
[2024-05-24 16:16] LABS: Albumin 3.8 g/dL (3.4-5.0); Albumin/Globulin Ratio 1.2 (1.1-1.8); Anion Gap 11.5 mEq/L (5.0-15.0); Bilirubin Total 0.9 mg/dL (0.2-1.0); Globulin 3.1 g/dL (2.3-3.5); Potassium 5.5 mEq/L (3.5-5.1); Protein, Total 6.9 g/dL (6.4-8.2)
[2024-05-24] MEDS ORDERED: NA CHLORIDE 0.9% 1,000 ML ONE (17:09)
[2024-05-24 17:11] LABS: C.diff Antigen/Toxin Ag neg : Tox neg (NEG : NEG); CDIFF INTERNAL NEG CONTROL White Background (WHITE BKGD); STOOL CONSISTENCY Liquid/Semi-Solid
--- NOTE | 2024-05-24 17:48 | RAD REPORT ---
EXAM DESCRIPTION: CT - Abdomen Pelvis Wo Contrast - 05/24/2024 4:37 pm CLINICAL HISTORY: ABD PAIN COMPARISON: Abdomen Pelvis Wo Contrast dated 09/30/2023 TECHNIQUE: Thin cut axial CT imaging of the abdomen and pelvis was performed without IV contrast. Mu ltiplanar reformats were generated and reviewed. All CT scans are performed using dose optimization technique as appropriate and may include automated exposure control or mA/KV adjustment according to patient size. FINDINGS: No suspicious findings in the lung bases. The liver, spleen, adrenal glands, and pancreas show no suspicious findings. Gallbladder and biliary tree are also without suspicious finding. Symmetric renal contour, without suspicious parenchymal findings within limits of noncontrast techniq ue. No evidence of radiopaque calculi or hydroureteronephrosis. Fluid filling of nondistended distal small bowel, as well as throughout the large bowel. No air-fluid levels. No dilated bowel loops or bowel wall thickening. No free air, free fluid or inflammatory str anding. No hernia, mass or bulky lymphadenopathy. Moderate prostatomegaly. The urinary bladder is wit hout significant finding. No suspicious bony findings. IMPRESSION: Fluid filling of nondistended distal small bowel and large bowel, nonspecific and may re late to diarrheal state. No other acute intra-abdominal process.
--- NOTE | 2024-05-24 17:55 | EDPHYS ---
Physician Documentation [facility] Name: Spenser Swartz Jr Age: 79 yrs Sex: Male : 1945 Arrival Date: 05/24/2024 Time: 15:29 Bed 8 Private MD: ED Physician Mitch May HPI: 05/24 17:09 This 79 yrs old Male presents to ER via EMS with complaints of Diarrhea. kb 17:09 Pt is an 79 year old male who presents for diarrhea that started this morning. Reports kb 6 episodes total. Denies nausea, vomiting, fever, abd pain. States he has taken 4 immodium without relief. . Historical: - Allergies: 15:36 Codeine; rs5 15:36 PENICILLINS; rs5 - PMHx: 15:36 Atrial Fib; Diabetes - NIDDM; Hypertension; Parkinson's disease; rs5 - PSHx: 15:36 L shoulder rotator cuff; achilles tendon SX; achilles tendon SX; triple bypass; rs5 - Immunization history:: Adult Immunizations up to date. - Infectious Disease History:: Denies. - Social history:: Smoking status: Patient denies any tobacco usage or history of. ROS: 17:08 Constitutional: As per HPI kb Exam: 17:08 Constitutional: This is a well developed, well nourished patient who is awake, alert, kb and in no acute distress. Head/Face: Normocephalic, atraumatic. ENT: Moist Mucous membranes Cardiovascular: Regular rate Respiratory: Respirations even and unlabored. No increased work of breathing. Talking in full sentences Abdomen/GI: Soft, non-tender. No distention Skin: Warm, dry with normal turgor. Normal color. MS/ Extremity: Pulses equal, no cyanosis. Neurovascular intact. Full, normal range of motion. Neuro: Awake and alert, GCS 15, oriented to person, place, time, and situation. Moves all extremities. Normal gait. 17:23 ECG was reviewed by the Attending Physician. kb Vital Signs: 15:37 BP 106 / 66; Pulse 83; Resp 17; Temp 97.8(O); Pulse Ox 98% on R/A; rs5 17:30 BP 128 / 76; Pulse 69; Resp 16; Pulse Ox 100% ; db 18:18 BP 122 / 78; Pulse 73; Resp 17; Pulse Ox 98% on R/A; rs5 18:59 BP 126 / 77; Pulse 75; Resp 17; Pulse Ox 98% on R/A; rs5 MDM: 15:36 Patient medically screened. kb 17:08 Differential diagnosis: viral gastroenteritis, dehydration, abnormal electrolytes, kb c.diff, diverticulitis. Data reviewed: vital signs, nurses notes. Historians other than the Patient: EMS: [facility]. 17:54 Management of patient was discussed with the following: Dr May, recommends outpatient treatment/followup. Counseling: I had a detailed discussion with the patient and/or guardian regarding the historical points, exam findings, and any diagnostic results supporting the discharge/admit diagnosis, lab results, radiology results, the need for outpatient follow up, a family practitioner, to return to the emergency department if symptoms worsen or persist or if there are any questions or concerns that arise at home. 05/24 15:37 Order name: CBC with Diff; Complete Time: 16:05 kb 05/24 15:37 Order name: CMP; Complete Time: 16:20 kb 05/24 15:37 Order name: Lipase; Complete Time: 16:20 kb 05/24 15:37 Order name: Urinalysis w/ reflexes kb 05/24 15:37 Order name: C.difficile; Complete Time: 17:14 kb 05/24 16:23 Order name: Abdomen ; Complete Time: 17:49 EDMS 05/24 16:41 Order name: EKG; Complete Time: 16:41 kb 05/24 15:37 Order name: IV Saline Lock; Complete Time: 17:07 kb 05/24 15:37 Order name: Labs collected and sent; Complete Time: 17:07 kb 05/24 16:41 Order name: EKG - Nurse/Tech; Complete Time: 17:21 kb EC:23 Rate is 70 beats/min. Rhythm is regular. QRS interval is normal at 196 msec. QT kb interval is normal at 494 msec. Administered Medications: 17:10 Drug: NS 0.9% IV 1000 ml IV at 100 ml/hr once; may complete 1L that was initiated by [facility] EMS Route: IV; Rate: 100 ml/hr; Site: right antecubital; 19:00 Follow up: Response: No adverse reaction [facility] 19:00 Follow up: IV Status: Completed infusion; IV converted to saline lock; IV Intake: [id number] Disposition Summary: 05/24/24 17:55 Discharge Ordered Notes: Location: Home kb Condition: Stable kb Diagnosis - Diarrhea, unspecified kb Followup: kb - With: Emergency Department - When: As needed - Reason: Worsening of condition Followup: kb - With: Private Physician - When: 2 - 3 days - Reason: Recheck today's complaints, Continuance of care, Re-evaluation by your physician Discharge Instructions: - Discharge Summary Sheet kb - Food Choices to Help Relieve Diarrhea, Adult kb - Diarrhea, Adult, [id number] kb Forms: - Medication Reconciliation Form kb - Antibiotic Education kb - Prescription Opioid Use kb - Patient Portal Instructions kb - Leadership Thank You Letter kb Signatures: Dispatcher [employer] EDJami Mcintyre, GAUGE MACHINE OPERATOR-C LEAH-Dalton Jaime, RN RN rs5 Corrections: (The following items were deleted from the chart) 16:23 15:50 Abdomen Pelvis W Con+CT.RAD.BRZ ordered. EDMS EDMS
--- NOTE | 2024-05-24 17:55 | ER ---
Nurse's Notes [facility] Name: Spenser Swartz Jr Age: 79 yrs Sex: Male : 1945 Arrival Date: 05/24/2024 Time: 15:29 Bed 8 Private MD: Diagnosis: Diarrhea, unspecified Presentation: 05/24 15:35 Chief complaint: EMS states: Diarrhea started this morning. Coronavirus screen: At this rs5 time, the client does not indicate any symptoms associated with coronavirus-19. Ebola Screen: No symptoms or risks identified at this time. Initial Sepsis Screen: Does the patient meet any 2 criteria?. Risk Assessment: Do you want to hurt yourself or someone else? Patient reports no desire to harm self or others. Onset of symptoms was June 09, 2024. 15:35 Method Of Arrival: EMS: [facility] rs5 15:35 Acuity: AMA 3 rs5 15:40 Initial Sepsis Screen: Does the patient have a suspected source of infection? No. rs5 Patient's initial sepsis screen is negative. Triage Assessment: 17:30 General: Appears in no apparent distress. comfortable, Behavior is calm, cooperative. db Neuro: Level of Consciousness is awake, alert, obeys commands, Oriented to person, place, time, situation. Respiratory: Airway is patent Respiratory effort is even, unlabored, Respiratory pattern is regular, symmetrical. GI:. Historical: - Allergies: 15:36 Codeine; rs5 15:36 PENICILLINS; rs5 - PMHx: 15:36 Atrial Fib; Diabetes - NIDDM; Hypertension; Parkinson's disease; rs5 - PSHx: 15:36 L shoulder rotator cuff; achilles tendon SX; achilles tendon SX; triple bypass; rs5 - Immunization history:: Adult Immunizations up to date. - Infectious Disease History:: Denies. - Social history:: Smoking status: Patient denies any tobacco usage or history of. Screenin:36 [facility] ED Fall Risk Assessment (Adult) History of falling in the last 3 months, rs5 including since admission No falls in past 3 months (0 pts) Confusion or Disorientation No (0 pts) Intoxicated or Sedated No (0 pts) Impaired Gait Yes (1 pt) Mobility Assist Device Used Yes (1 pt) Altered Elimination No (0 pt) Score/Fall Risk Level 0 - 2 = Low Risk Oriented to surroundings, Maintained a safe environment. Abuse screen: Denies threats or abuse. Nutritional screening: No deficits noted. Tuberculosis screening: No symptoms or risk factors identified. Assessment: 15:35 General: Appears in no apparent distress. uncomfortable, Behavior is calm, cooperative. rs5 Pain: Denies pain. Neuro: Level of Consciousness is awake, alert, obeys commands, Oriented to person, place, time, situation. Cardiovascular: Patient's skin is warm and dry. Respiratory: Airway is patent Respiratory effort is even, unlabored, Respiratory pattern is regular, symmetrical. GI: Abdomen is round non-distended, Abd is soft and non tender X 4 quads. GI: Reports diarrhea. : No signs and/or symptoms were reported regarding the genitourinary system. EENT: No signs and/or symptoms were reported regarding the EENT system. Derm: Skin is intact, Skin is pink, warm \\T\\ dry. Musculoskeletal: Range of motion: intact in all extremities. 15:35 GI: Reports Patient currently denies nausea. rs5 16:41 Reassessment: Patient and/or family updated on plan of care and expected duration. Pain rs5 level reassessed. Patient is alert, oriented x 3, equal unlabored respirations, skin warm/dry/pink. 17:35 Reassessment: No changes from previously documented assessment. rs5 18:17 Reassessment: Patient and/or family updated on plan of care and expected duration. Pain rs5 level reassessed. Patient is alert, oriented x 3, equal unlabored respirations, skin warm/dry/pink. 18:18 Reassessment: to bedside, discharge papers provided to pt. Pt states "I will call my rs5 family right now so that they can come and pick me up". 18:59 Reassessment: Patient and/or family updated on plan of care and expected duration. Pain rs5 level reassessed. Patient is alert, oriented x 3, equal unlabored respirations, skin warm/dry/pink. Vital Signs: 15:37 BP 106 / 66; Pulse 83; Resp 17; Temp 97.8(O); Pulse Ox 98% on R/A; rs5 17:30 BP 128 / 76; Pulse 69; Resp 16; Pulse Ox 100% ; db 18:18 BP 122 / 78; Pulse 73; Resp 17; Pulse Ox 98% on R/A; rs5 18:59 BP 126 / 77; Pulse 75; Resp 17; Pulse Ox 98% on R/A; rs5 ED Course: 15:34 Patient arrived in ED. db 15:34 Dalton Rush, RN is Primary Nurse. rs5 15:36 Jami Gregg FNP-C is PHCP. kb 15:36 Mitch May MD is Attending Physician. kb 15:36 Triage completed. rs5 15:36 Patient has correct armband on for positive identification. Placed in gown. Bed in low rs5 position. Call light in reach. Side rails up X2. 15:36 No provider procedures requiring assistance completed. rs5 16:39 Abdomen In Process Unspecified. EDMS 19:00 IV discontinued, intact, bleeding controlled, No redness/swelling at site. Pressure rs5 dressing applied. 19:00 Inserted saline lock: 20 gauge in right antecubital area, using aseptic technique. rs5 Blood collected. Flushed with 10 mL NS. Administered Medications: 17:10 Drug: NS 0.9% IV 1000 ml IV at 100 ml/hr once; may complete 1L that was initiated by rs5 EMS Route: IV; Rate: 100 ml/hr; Site: right antecubital; 19:00 Follow up: Response: No adverse reaction rs5 19:00 Follow up: IV Status: Completed infusion; IV converted to saline lock; IV Intake: [id number] Medication: 18:18 VIS not applicable for this client. rs5 Intake: 19:00 IV: 1200ml; Total: 1200ml. rs5 Outcome: 17:55 Discharge ordered by . kb 18:59 Discharged to home via wheelchair, with family, rs5 18:59 Condition: stable 18:59 Discharge instructions given to patient, family, Instructed on discharge instructions, follow up and referral plans. Demonstrated understanding of instructions, follow-up care, 19:01 Patient left the ED. rs5 Signatures: Dispatcher [employer] EDMS Jami Gregg FNP-C FNP-Ckb Benton, Danielle RN RN Dalton Flores, RN RN rs5
[2024-05-24 17:58] LABS: Specific Gravity 1.011 (1.005-1.030); Sqamous Epithelial <5 /HPF (None Seen); Urine Bacteria None Seen /HPF (<20); Urine Bilirubin NEGATIVE (Negative); Urine Blood Negative (Negative); Urine Clarity Clear (Clear); Urine Color Light-Yellow (Yellow); Urine Crystals Unidentified Few /HPF (None Seen); Urine Culture Reflex Order NOT NEEDED; Urine Glucose 4+ (Over) (Negative); Urine Ketones NEGATIVE (Negative); Urine Microscopic Reflex YN ORDER UMIC; Urine Mucus Slight /HPF (None Seen); Urine Nitrite NEGATIVE (Negative); Urine Protein 1+ (Negative); Urine RBC None Seen /HPF (None Seen); Urine Urobilinogen Normal (Normal); Urine WBC <5 /HPF (<5)
[2024-05-24 22:38] VITALS: TEMP 97.8
[2024-05-24 22:53] VITALS: O2SAT 98
[2024-05-24 22:54] VITALS: BP 126/77
--- NOTE | 2024-05-25 16:58 | EKG ---
Test Date: 2024-05-24 Test Time: 17:16:54 Shoe Cobbler: MARIAA MEASUREMENT RESULTS: Intervals: Rate: 70 WV: QRSD: 196 QT: 458 QTc: 494 Lapaz: P: WV: QRS: -83 T: 97 INTERPRETIVE STATEMENTS: Electronic ventricular pacemaker Compared to ECG 04/11/2024 15:17:19 No significant changes Electronically Signed On 05-25-24 16:56:49 CDT by Raoul Dailey
== END 2024-05-24 19:01 | disposition home or self-care (01) ==
LOC: ER 15:29
DX: R19.7 Diarrhea, unspecified (principal)
CPT/HCPCS: 93005; 85025; 81001; 36415; 87324; 83690; 80053; 74176; J7030; 96360; 96361; 99284

== ENCOUNTER 2024-06-04 14:48 | Inpatient (IN) | payer OTHER ==
[2024-06-04 15:42] LABS: Absolute Eosinophils 0.2 K/uL (0-0.5); Absolute Lymphocytes (CBC) 1.1 K/uL (0.7-4.9); Absolute Monocytes 0.7 K/uL (0.1-1.3); Absolute Neutrophil 5.6 K/uL (1.8-8.0); Basophils % 0.5 % (0-1.3); Eosinophils % 2.5 % (0-4.4); Hematocrit 36.6 % (39.6-49.0); Hemoglobin 12.2 g/dL (13.6-17.9); Lymphocytes % 14.2 % (15.3-44.8); MCH 26.7 pg (27.0-35.0); MCHC 33.3 g/dL (32.0-36.0); MCV 80.4 fL (80-100); MPV 8.3 fL (7.6-11.3); Neutrophils % 73.8 % (41.7-73.7); PT Prothrombin Time 12.5 SECONDS (9.4-12.5); Platelets 166 thou/uL (152-406); Protime INR 1.12; RBC Red Blood Cell Count 4.55 M/uL (4.33-5.43); Red Cell Distribution Width 23.4 % (12.1-15.2)
[2024-06-04 16:05] LABS: Albumin 4.1 g/dL (3.4-5.0); Albumin/Globulin Ratio 1.5 (1.1-1.8); Anion Gap 13.8 mEq/L (5.0-15.0); Bilirubin Total 0.8 mg/dL (0.2-1.0); Globulin 2.8 g/dL (2.3-3.5); Potassium 3.8 mEq/L (3.5-5.1); Protein, Total 6.9 g/dL (6.4-8.2); Troponin High Sensitivity 37.2 pg/mL (<58.9)
[2024-06-04 16:19] LABS: White Blood Cell Scan OK (OK)
[2024-06-04 16:20] LABS: Anisocytosis 2+; Blood Morphology Comment NOTED (NOT SEEN); Hypochromasia 1+; Ovalocytes 1+; Platelet Estimate ADEQ
--- NOTE | 2024-06-04 16:23 | RAD REPORT ---
EXAM DESCRIPTION: US - Extrem Venous W Compress Chong - 06/04/2024 4:17 pm CLINICAL HISTORY: SWELLING Bilateral leg edema and swelling. COMPARISON: Extremity Venous Uni Ltd dated 04/07/2024 TECHNIQUE: Real-time sonographic interrogation of the left and right lower extremity deep venous sys tems was performed. FINDINGS: Normal compressibility, flow augmentation, phasic flow and spontaneous flow is identified in both the left and right lower extremity deep venous systems. IMPRESSION: No sonographic evidence of left or right lower extremity deep venous thrombosis.
--- NOTE | 2024-06-04 16:45 | EDPHYS ---
Physician Documentation [facility] Name: Spenser Swartz Jr Age: 79 yrs Sex: Male : 1945 Arrival Date: 06/04/2024 Time: 14:48 Bed 2 Private MD: ED Physician Jamil Ceja HPI: 06/04 15:12 This 79 yrs old Male presents to ER via EMS with complaints of General Weakness. sp3 15:12 79-year-old male with history of Parkinson disease, hypertension, diabetes, atrial sp3 fibrillation now presents to the ED for generalized weakness and bilateral lower extremity swelling and erythema. Patient was referred by PCP for possible cellulitis. Patient was seen recently for diarrhea and was subsequently discharged and followed up to the PCP. On that PCP follow-up visit, patient was referred back to the ED for the above findings. History, physical and ROS somewhat limited secondary to Parkinson's disease and difficulty speaking for the patient however patient denies any headache, fever, chest pain, shortness of breath, abdominal pain, continued diarrhea, or any other concerning signs or symptoms on ROS at this time.. 19:52 WEAK, NOT ABLE TO GET AROUND, SENT BY DYAN JULIAN. Onset: The symptoms/episode shelly began/occurred 3 day(s) ago. Severity of symptoms: in the emergency department the symptoms are unchanged. The patient has experienced similar episodes in the past, several times. Historical: - Allergies: 14:59 Codeine; rs5 14:59 PENICILLINS; rs5 - PMHx: 14:59 Atrial Fib; Diabetes - NIDDM; Hypertension; Parkinson's disease; rs5 - PSHx: 14:59 achilles tendon SX; L shoulder rotator cuff; triple bypass; rs5 - Immunization history:: Adult Immunizations up to date. - Infectious Disease History:: Denies. - Social history:: Smoking status: Patient denies any tobacco usage or history of. ROS: 15:13 Unable to obtain ROS due to Parkinson's disease. See HPI for limited ROS., sp3 Exam: 15:13 Constitutional: This is a well developed, well nourished patient who is awake, alert, sp3 and in no acute distress. Head/Face: Normocephalic, atraumatic. Eyes: Pupils equal round and reactive to light, extra-ocular motions intact. Lids and lashes normal. Conjunctiva and sclera are non-icteric and not injected. Cornea within normal limits. Periorbital areas with no swelling, redness, or edema. ENT: Nares patent. No nasal discharge, no septal abnormalities noted. External auditory canals are clear. Oropharynx with no redness, swelling, or masses, exudates, or evidence of obstruction, uvula midline. Mucous membranes moist. Neck: Trachea midline, no thyromegaly or masses palpated, and no cervical lymphadenopathy. Supple, full range of motion without nuchal rigidity, or vertebral point tenderness. No Meningismus. Chest/axilla: Normal chest wall appearance and motion. Nontender with no deformity. No lesions are appreciated. Cardiovascular: Regular rate and rhythm with a normal S1 and S2. No gallops, murmurs, or rubs. Normal PMI, no JVD. No pulse deficits. Respiratory: Lungs have equal breath sounds bilaterally, clear to auscultation and percussion. No rales, rhonchi or wheezes noted. No increased work of breathing, no retractions or nasal flaring. Abdomen/GI: Soft, non-tender, with normal bowel sounds. No distension or tympany. No guarding or rebound. No evidence of tenderness throughout. Back: No spinal tenderness. No costovertebral tenderness. Full range of motion. Neuro: Awake and alert, GCS 15, oriented to person, place, time, and situation. Cranial nerves II-XII grossly intact. Motor strength 5/5 in all extremities. Sensory grossly intact. Cerebellar exam normal. Normal gait. Psych: Awake, alert, with orientation to person, place and time. Behavior, mood, and affect are within normal limits. 15:13 Skin: Bilateral lower extremity swelling and erythema noted circumferential on both sp3 legs from the messina distally.. 15:28 ECG was reviewed by the Attending Physician. Paced rhythm with adequate capture at 70 sp3 bpm 19:53 Abdomen/GI: Inspection: distension, that is mild, Bowel sounds: normal, Liver: no shelly appreciated palpable abnormalities, Hernia: not appreciated, 19:53 Musculoskeletal/extremity: ROM: full active range of motion, full passive range of motion, Circulation is intact in all extremities. Sensation intact. Compartment Syndrome exam of affected extremity: is normal. Weight bearing: is unable to bear weight, DVT Exam: negative Homans' sign noted on exam, no appreciated bluish discoloration, pain, swelling, tenderness, erythema, increased warmth, that is mild, of the right leg and left leg, 19:53 Neuro: Orientation: is normal, appropriate for stated age, no acute changes, Mentation: slow to respond, Memory: appropriate for stated age, no acute changes, Cranial nerves: grossly normal, is grossly normal based on the patient's age, no acute changes, Cerebellar function: is grossly normal based on the patient's age, no acute changes, Motor: moves all fours, strength is normal, Sensation: no obvious gross deficits, appropriate no acute changes, Gait: not tested. Babinski testing is normal, seizure activity, is not displayed by the patient, Vital Signs: 14:56 BP 130 / 62; Pulse 67; Resp 18; Temp 98.4(O); Pulse Ox 99% on R/A; rs5 15:00 BP 121 / 6; Pulse 70; Resp 16; Pulse Ox 100% on R/A; me1 15:45 BP 130 / 69; Pulse 70; Resp 16; Pulse Ox 100% on R/A; me1 16:30 BP 134 / 96; Pulse 75; Resp 17; Pulse Ox 100% on R/A; me1 17:15 BP 121 / 69; Pulse 70; Resp 15; Temp 98.1; Pulse Ox 100% ; me1 17:58 BP 125 / 73; Pulse 73; Resp 16; Pulse Ox 98% on R/A; rs5 20:00 BP 134 / 79; Pulse 70; Resp 18; Pulse Ox 100% on R/A; pc2 21:15 BP 104 / 59; Pulse 70; Resp 18; Pulse Ox 100% on R/A; pc2 22:30 BP 122 / 66; Pulse 71; Resp 18; Pulse Ox 100% on R/A; pc2 23:45 BP 135 / 66; Pulse 73; Resp 18; Pulse Ox 100% on R/A; pc2 NIH Stroke Scale Scores: 19:53 NIHSS Score: 0 shelly MDM: 14:58 Patient medically screened. sp3 15:14 Data reviewed: vital signs, nurses notes, old medical records, lab test result(s), sp3 radiologic studies. ED course: 79-year-old male with PMH above now with generalized weakness and bilateral lower extremity swelling and edema and erythema. Differential diagnosis includes cellulitis, DVT, peripheral edema, CHF, electrolyte abnormality, among others. Workup will include general laboratory values, ultrasound bilateral lower extremity and general supportive care with disposition pending workup and patient course.. 16:44 ED course: Laboratory values demonstrate no significant abnormality. Clinically patient sp3 has cellulitis which we will treat with oral antibiotics. Bilateral ultrasounds negative for DVT. We will safely discharge patient home at this time.. 06/04 15:03 Order name: Blood Culture Adult (2) [facility] 06/04 15:03 Order name: CBC with Diff; Complete Time: 16:24 [facility] 06/04 15:03 Order name: CMP; Complete Time: 16:24 [facility] 06/04 15:03 Order name: Lactate w/ 2H reflex if indic.; Complete Time: 16:24 [facility] 06/04 15:03 Order name: Protime (+inr); Complete Time: 16:24 [facility] 06/04 15:03 Order name: Urinalysis w/ reflexes [facility] 06/04 15:03 Order name: Troponin High Sensitivity; Complete Time: 16:24 [facility] 06/04 15:15 Order name: BNP [facility] 06/04 15:49 Order name: CBC Smear Scan; Complete Time: 16:24 [facility] 06/04 19:47 Order name: Basic Metabolic Panel [facility] 06/04 19:47 Order name: LFT's [facility] 06/04 19:47 Order name: Magnesium [facility] 06/04 20:12 Order name: Uric Acid [facility] 06/04 20:37 Order name: CBC with Automated Diff [facility] 06/04 20:37 Order name: CBC with Automated Diff [facility] 06/04 20:37 Order name: Comprehensive Metabolic Panel [facility] 06/04 20:37 Order name: Comprehensive Metabolic Panel [facility] 06/04 22:49 Order name: NT PRO-BNP [facility] 06/04 15:03 Order name: US Extremity Venous W Compression Chong; Complete Time: 16:24 [facility] 06/04 19:47 Order name: CT Stone Protocol [facility] 06/04 19:47 Order name: XRAY Chest (1 view) [facility] 06/04 21:06 Order name: CT [facility] 06/04 15:03 Order name: EKG; Complete Time: 15:04 [facility] 06/04 20:37 Order name: CONS Physician Consult [facility] 06/04 15:03 Order name: Cardiac monitoring; Complete Time: 15:25 [facility] 06/04 15:03 Order name: EKG - Nurse/Tech; Complete Time: 15:25 3 06/04 15:03 Order name: Labs collected and sent; Complete Time: 15: 3 06/04 15:03 Order name: O2 Sat Monitoring; Complete Time: 15: 3 06/04 15:03 Order name: Vital Signs; Complete Time: 15:22 [facility] 06/04 19:47 Order name: Pepe; Complete Time: 22:46 [facility] 06/04 19:47 Order name: IV Saline Lock; Complete Time: 21:43 [facility] 06/04 19:47 Order name: O2 Per Protocol; Complete Time: 21:43 shelly Administered Medications: 22:15 Drug: Famotidine IVP 20 mg IVP once; dilute with 10 mL 0.9% NaCl; give over 2 minutes pc2 Route: IVP; Site: left forearm; 22:45 Follow up: Response: No adverse reaction pc2 22:20 Drug: NS 0.9% IV 1000 ml IV at 1 bolus Per protocol; 1000 mL bolus Route: IV; Rate: 1 pc2 bolus; Site: left forearm; 23:00 Follow up: Response: No adverse reaction; IV Status: Completed infusion; IV Intake: pc2 1000ml 22:22 Drug: ceFAZolin IVPB 1 grams IVPB once Route: IVPB; Site: left forearm; pc2 23:00 Follow up: Response: No adverse reaction; IV Status: Completed infusion pc2 22:47 Not Given (med not availablee): viscous lidocaineliquid (4 %) 5 ml Mucous Membrane once pc2 23:06 Not Given (Physician Discretion; verified with hospitalist not to give): [id number] ml, pc2 sodium bicarbonate ivp 100 meq IV at 100 ml/hr continuous Disposition Summary: 06/04/24 19:58 Hospitalization Ordered Notes: Hospitalization Status: Inpatient Admission shelly Provider: Celestino Le cha Location: Telemetry/MedSurg (Inpatient)(06/04/24 19:58) shelly Condition: Fair(06/04/24 19:58) shelly Problem: new shelly Symptoms: have improved shelly Bed/Room Type: Standard shelly Room Assignment: 229(06/04/24 22:03) rv1 Diagnosis - Acute kidney failure, unspecified - ON CHRONIC shelly - Weakness shelly - Parkinson's disease shelly - Type 2 diabetes mellitus with hyperglycemia shelly - Cellulitis and acute lymphangitis of other parts of limb - BILATERAL LOWER shelly EXTREMITIES Forms: - Medication Reconciliation Form shelly - SBAR form shelly - Leadership Thank You Letter [facility] NIH Stroke Scale - NIH Stroke Score Date: 06/04/2024 Time: 19:53 Total Score = 0 10. Dysarthria (speech clarity - read or repeat words) - 0(Normal) 11. Extinction and Inattention (visual/tactile/auditory/spatial/personal) - 0(No abnormality) 1a. Level of Consciousness (LOC) - 0(Alert) 1b. Level of Consciousness (LOC) (Month \T\ Age) - 0(Both) 1c. LOC Commands (Open \T\ Closes Eyes/Carbonation Equipment Tender) - 0(Both) 2. Best Gaze (Lateral Gaze Paresis) - 0(Normal) 3. Visual Field Loss - 0(No visual loss) 4. Facial Palsy - 0(Normal) 5a. Left Arm: Motor (10-second hold) - 0(No drift) 5b. Right Arm: Motor (10-second hold) - 0(No drift) 6a. Left Leg: Motor (5-second hold - always test supine) - 0(No drift) 6b. Right Leg: Motor (5-second hold - always test supine) - 0(No drift) 7. Limb Ataxia (finger/nose \T\ heel/messina - test with eyes open) - 0(Absent) 8. Sensory Loss (pinprick arms/legs/face) - 0(Normal) 9. Best Language: Aphasia (description/naming/reading) - 0(No aphasia) Initials: [facility] Signatures: Dispatcher [employer] EDMS Jamil Ceja MD MD cha Patel, Setul, MD MD sp3 Villegas, Rebecca rv1 Dalton Rush, RN RN rs5 Mayi Martinez, RN RN pc2 Corrections: (The following items were deleted from the chart) 14:59 14:59 PSHx: achilles tendon SX; rs5 rs5 14:59 14:59 PSHx: achilles tendon SX; rs5 rs5 19:45 16:44 Home sp3 shelly 19:45 16:44 Stable sp3 shelly 19:45 16:44 Cellulitis, peripheral edema sp3 shelly 19:48 19:47 BASIC METABOLIC PANEL+C.LAB.BRZ ordered. EDMS EDMS :48 19:47 HEPATIC FUNCTION+C.LAB.BRZ ordered. EDMS EDMS :48 19:47 MAGNESIUM+C.LAB.BRZ ordered. EDMS EDMS 22:03 19:58 [facility] rv1
--- NOTE | 2024-06-04 16:45 | ER ---
Nurse's Notes [facility] Name: Spenser Swartz Jr Age: 79 yrs Sex: Male : 1945 Arrival Date: 06/04/2024 Time: 14:48 Bed 2 Private MD: Diagnosis: Acute kidney failure, unspecified-ON CHRONIC;Weakness;Parkinson's disease;Type 2 diabetes mellitus with hyperglycemia;Cellulitis and acute lymphangitis of other parts of limb-BILATERAL LOWER EXTREMITIES Presentation: 06/04 14:56 Chief complaint: EMS states: Generalized weakness and possible cellulitis of lower rs5 extremities. Instructed to go to the ER by primary care via EMS. Coronavirus screen: At this time, the client does not indicate any symptoms associated with coronavirus-19. Ebola Screen: No symptoms or risks identified at this time. Initial Sepsis Screen: Does the patient meet any 2 criteria? No. Patient's initial sepsis screen is negative. Does the patient have a suspected source of infection? No. Patient's initial sepsis screen is negative. Risk Assessment: Do you want to hurt yourself or someone else? Patient reports no desire to harm self or others. Onset of symptoms was June 04, 2024. 14:56 Method Of Arrival: EMS: [facility] rs5 14:56 Acuity: AMA 3 rs5 Triage Assessment: 14:59 General: Appears in no apparent distress. uncomfortable, Behavior is calm, cooperative. rs5 Pain: Denies pain. Historical: - Allergies: 14:59 Codeine; rs5 14:59 PENICILLINS; rs5 - PMHx: 14:59 Atrial Fib; Diabetes - NIDDM; Hypertension; Parkinson's disease; rs5 - PSHx: 14:59 achilles tendon SX; L shoulder rotator cuff; triple bypass; rs5 - Immunization history:: Adult Immunizations up to date. - Infectious Disease History:: Denies. - Social history:: Smoking status: Patient denies any tobacco usage or history of. Screenin:00 [facility] ED Fall Risk Assessment (Adult) History of falling in the last 3 months, rs5 including since admission No falls in past 3 months (0 pts) Confusion or Disorientation No (0 pts) Intoxicated or Sedated No (0 pts) Impaired Gait Yes (1 pt) Mobility Assist Device Used Yes (1 pt) Altered Elimination No (0 pt) Score/Fall Risk Level 0 - 2 = Low Risk Oriented to surroundings, Maintained a safe environment. Abuse screen: Denies threats or abuse. Nutritional screening: No deficits noted. Tuberculosis screening: No symptoms or risk factors identified. Assessment: 14:57 General: Appears in no apparent distress. uncomfortable, Behavior is calm, cooperative, rs5 Reports generalized weakness. Pain: Complains of pain in right leg and left leg Pain currently is 2 out of 10 on a pain scale. Quality of pain is described as aching, Is continuous. Neuro: Level of Consciousness is awake, alert, obeys commands, Oriented to person, place, time, situation. Cardiovascular: Patient's skin is warm and dry. Respiratory: Airway is patent Respiratory effort is even, unlabored, Respiratory pattern is regular, symmetrical. GI: Abdomen is round non-distended, Abd is soft and non tender X 4 quads. : No signs and/or symptoms were reported regarding the genitourinary system. EENT: No signs and/or symptoms were reported regarding the EENT system. Derm: Skin is intact, Skin is pink, warm \T\ dry. redness and swelling to lower extremities bilat. Musculoskeletal: Range of motion: intact in all extremities, Reports generalized weakness. 16:01 Reassessment: Patient and/or family updated on plan of care and expected duration. Pain rs5 level reassessed. Patient is alert, oriented x 3, equal unlabored respirations, skin warm/dry/pink. 17:10 Reassessment: Patient and/or family updated on plan of care and expected duration. Pain rs5 level reassessed. Patient is alert, oriented x 3, equal unlabored respirations, skin warm/dry/pink. Patient denies pain at this time. Patient states feeling better. 17:58 Reassessment: No changes from previously documented assessment. rs5 22:00 Reassessment: Patient appears in no apparent distress at this time. No changes from pc2 previously documented assessment. Patient is alert, oriented x 3, equal unlabored respirations, skin warm/dry/pink. 23:00 Reassessment: Patient appears in no apparent distress at this time. pc2 06/05 00:00 Reassessment: No changes from previously documented assessment. Patient and/or family pc2 updated on plan of care and expected duration. Pain level reassessed. Vital Signs: 06/04 14:56 BP 130 / 62; Pulse 67; Resp 18; Temp 98.4(O); Pulse Ox 99% on R/A; rs5 15:00 BP 121 / 6; Pulse 70; Resp 16; Pulse Ox 100% on R/A; me1 15:45 BP 130 / 69; Pulse 70; Resp 16; Pulse Ox 100% on R/A; me1 16:30 BP 134 / 96; Pulse 75; Resp 17; Pulse Ox 100% on R/A; me1 17:15 BP 121 / 69; Pulse 70; Resp 15; Temp 98.1; Pulse Ox 100% ; me1 17:58 BP 125 / 73; Pulse 73; Resp 16; Pulse Ox 98% on R/A; rs5 20:00 BP 134 / 79; Pulse 70; Resp 18; Pulse Ox 100% on R/A; pc2 21:15 BP 104 / 59; Pulse 70; Resp 18; Pulse Ox 100% on R/A; pc2 22:30 BP 122 / 66; Pulse 71; Resp 18; Pulse Ox 100% on R/A; pc2 23:45 BP 135 / 66; Pulse 73; Resp 18; Pulse Ox 100% on R/A; pc2 NIH Stroke Scale Scores: 19:53 NIHSS Score: 0 shelly ED Course: 14:56 Patient arrived in ED. rs5 14:58 Damaris Marshall MD is Attending Physician. sp3 14:59 Triage completed. rs5 15:00 Patient has correct armband on for positive identification. Placed in gown. Bed in low rs5 position. Call light in reach. Side rails up X2. 15:00 No provider procedures requiring assistance completed. rs5 15:10 Inserted saline lock: 20 gauge in right forearm, using aseptic technique. Blood rs5 collected. Flushed with 10 mL NS. 15:15 Accessed peripheral vein via ultrasound, utilizing dynamic ultrasound technique Good ha1 blood return. Flushes easily. 20 G RFA. 15:43 Dalton Rush, RN is Primary Nurse. rs5 16:19 US Extremity Venous W Compression Chong In Process Unspecified. EDMS 17:59 IV discontinued, intact, bleeding controlled, No redness/swelling at site. Pressure rs5 dressing applied. 19:44 Attending Physician role handed off by Damaris Marshall MD jb4 19:44 Jamil Ceja MD is Attending Physician. shelly 19:56 Celsetino Le MD is Hospitalizing Provider. shelly 20:06 XRAY Chest (1 view) In Process Unspecified. EDMS 21:43 Uric Acid Sent. pc2 21:43 Basic Metabolic Panel Sent. pc2 21:43 LFT's Sent. pc2 21:43 Magnesium Sent. pc2 21:45 Inserted saline lock: 22 gauge in left forearm, using aseptic technique. Blood pc2 collected. Flushed with 10 mL NS. 22:45 Pepe cath inserted, using sterile technique, 16 Fr., by ny, balloon inflated, to kmf gravity drainage, returned clear yellow urine. Patient tolerated well. 23:48 Arm band placed on right wrist. pc2 23:48 Provided Education on: POC and time frame. pc2 Administered Medications: 22:15 Drug: Famotidine IVP 20 mg IVP once; dilute with 10 mL 0.9% NaCl; give over 2 minutes pc2 Route: IVP; Site: left forearm; 22:45 Follow up: Response: No adverse reaction pc2 22:20 Drug: NS 0.9% IV 1000 ml IV at 1 bolus Per protocol; 1000 mL bolus Route: IV; Rate: 1 pc2 bolus; Site: left forearm; 23:00 Follow up: Response: No adverse reaction; IV Status: Completed infusion; IV Intake: pc2 1000ml 22:22 Drug: ceFAZolin IVPB 1 grams IVPB once Route: IVPB; Site: left forearm; pc2 23:00 Follow up: Response: No adverse reaction; IV Status: Completed infusion pc2 22:47 Not Given (med not availablee): viscous lidocaineliquid (4 %) 5 ml Mucous Membrane once pc2 23:06 Not Given (Physician Discretion; verified with hospitalist not to give): [id number] ml, pc2 sodium bicarbonate ivp 100 meq IV at 100 ml/hr continuous Medication: 15:00 VIS not applicable for this client. rs5 Intake: 23:00 IV: 1000ml; Total: 1000ml. pc2 Outcome: 16:44 Discharge ordered by . sp3 17:58 Discharged to home ambulatory, with family, rs5 17:58 Condition: stable 17:58 Discharge instructions given to patient, family, Instructed on discharge instructions, follow up and referral plans. medication usage, Demonstrated understanding of instructions, follow-up care, medications, Prescriptions given X 1, 17:59 Patient left the ED. rs5 19:58 Decision to Hospitalize by Provider. shelly 06/05 00:28 Admitted to Med/surg accompanied by tech, via stretcher, room 229, with chart, pc2 Condition: stable Instructed on the need for admit, Demonstrated understanding of instructions, 00:29 Patient left the ED. pc2 NIH Stroke Scale - NIH Stroke Score Date: 06/04/2024 Time: 19:53 Total Score = 0 10. Dysarthria (speech clarity - read or repeat words) - 0(Normal) 11. Extinction and Inattention (visual/tactile/auditory/spatial/personal) - 0(No abnormality) 1a. Level of Consciousness (LOC) - 0(Alert) 1b. Level of Consciousness (LOC) (Month \T\ Age) - 0(Both) 1c. LOC Commands (Open \T\ Closes Eyes/Data Processing Equipment Repairer) - 0(Both) 2. Best Gaze (Lateral Gaze Paresis) - 0(Normal) 3. Visual Field Loss - 0(No visual loss) 4. Facial Palsy - 0(Normal) 5a. Left Arm: Motor (10-second hold) - 0(No drift) 5b. Right Arm: Motor (10-second hold) - 0(No drift) 6a. Left Leg: Motor (5-second hold - always test supine) - 0(No drift) 6b. Right Leg: Motor (5-second hold - always test supine) - 0(No drift) 7. Limb Ataxia (finger/nose \T\ heel/messina - test with eyes open) - 0(Absent) 8. Sensory Loss (pinprick arms/legs/face) - 0(Normal) 9. Best Language: Aphasia (description/naming/reading) - 0(No aphasia) Initials: [facility] Signatures: Dispatcher [employer] EDPA Jamil Ceja MD MD cha Bryson, James, RN RN jb4 Damaris Marshall MD MD sp3 Lili Loaiza, RN RN ha1 Dalton Rush RN RN rs5 Chelsea Davalos RN RN me1 Leandra Otto [facility] Mayi Martinez, RN RN pc2 Corrections: (The following items were deleted from the chart) 06/04 14:59 14:59 PSHx: achilles tendon SX; rs5 rs5 14:59 14:59 PSHx: achilles tendon SX; rs5 rs5 15:00 14:56 Chief complaint: EMS states: Generalized weakness and possible cellulitis rs5 of lower extremities. Instructed to go to the ER by primary care via EMS rs5 15:48 14:57 General: Appears in no apparent distress. uncomfortable, Behavior is rs5 calm, cooperative, rs5 15:48 14:57 Derm: Skin is intact, Skin is pink, warm \T\ dry. rs5 rs5 22:46 22:45 Pepe cath inserted, using sterile technique, 16 Fr., by ny, balloon kmf inflated, to gravity drainage, kmf
--- NOTE | 2024-06-04 20:14 | RAD REPORT ---
EXAM DESCRIPTION: RAD - Chest Single View - 06/04/2024 8:05 pm CLINICAL HISTORY: COUGH Chest pain. COMPARISON: Chest Single View dated 04/11/2024; Chest Single View dated 03/12/2024; Chest Single View dated 02/29/2024; Chest Single View dated 10/02/2023 FINDINGS: Portable technique limits examination quality. The lungs are grossly clear. The heart is mildly prominent in size. No displaced fractures.Sternotomy wires. Dual lead pacer device. IMPRESSION: No acute intrathoracic process suspected.
[2024-06-04] MEDS ORDERED: ACETAMINOPHEN 500 MG TAB PO PRN (20:33)
[2024-06-04] MEDS ORDERED: ONDANSETRON 4 MG/2 ML VIAL IV PRN (20:33)
[2024-06-04] MEDS ORDERED: MORPHINE 2 MG/ML SYR IV PRN (20:33)
--- NOTE | 2024-06-04 20:41 | P.HP ---
Certification for Inpatient With expected LOS: >2 Midnights Practitioner: I am a practitioner with admitting privileges, knowledge of patient current condition, hospital course, and medical plan of care. Services: Services provided to patient in accordance with Admission requirements found in Title 42 Section 412.3 of the Code of Federal Regulations Patient History Date of Service: 06/04/24 Reason for admission: Progressive weakness acute on chronic renal failure History of Present Illness: Patient is 79 years of age with a history of Parkinson's disease son at the bedside apparently he lives with a caregiver been very weak for the past 2 weeks he immobile and the ambulance brought him to the emergency room is a very poor historian he has end-stage Parkinson's disease so been battling with diarrhea denies any fever chills cough congestion Allergies codeine Allergy (Verified 09/17/23 09:11) Itching Penicillins Allergy (Verified 09/17/23 09:11) Rash Home Medications: Aspirin [Aspirin EC 81 MG] 81 mg PO BEDTIME 04/12/24 Atorvastatin Calcium 40 mg PO DAILY 04/12/24 Carbidopa/Levodopa [Carbidopa-Levodopa 25-100 Tab] 2 tab PO TID 04/12/24 Dapagliflozin Propanediol [Farxiga] 10 mg PO DAILY 04/12/24 Ferrous Sulfate [Ferrous Sulfate*] 325 mg PO BEDTIME 04/12/24 Furosemide 40 mg PO TID 04/12/24 Gabapentin 300 mg PO BEDTIME 04/12/24 Hydralazine [Apresoline*] 25 mg PO TID 04/12/24 Levothyroxine [Synthroid*] 25 mcg PO DAILY 04/12/24 Metformin HCl 500 mg PO DAILY 04/12/24 Metoprolol Tartrate 25 mg PO BID 04/12/24 Potassium Chloride 20 meq PO DAILY 04/12/24 Pramipexole Di-HCl [Pramipexole Dihydrochloride] 1 mg PO TID 04/12/24 Spironolactone [Aldactone*] 25 mg PO DAILY 04/12/24 - Past Medical/Surgical History Diabetic: Yes -: Hypertension 2007 -: 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 -: Chronic atrial fibrillation A-fib status post ICD October 2022 -: Coronary artery disease status post CABG 2014 -: parkinsons -: CKD III/IV normal-sized kidney 10.2/10.6 nephrotic range proteinuria/diabet -: CHF -: Parkinson disease -: COPD exacerbationMonitor closely on telemetryStarted on bronchodilators -: CABG -: Rotator cuff surgery Psychosocial/ Personal History: Patient lives at home with his - Family History Sister -: Diabetes Father -: Lung disease Notes: emphysema - Social History Alcohol use: Yes CD- Drugs: No Caffeine use: Yes Review of Systems 10-point ROS is otherwise unremarkable General: Weakness Physical Examination - Vital Signs Temperature: 98.1 F Blood Pressure: 125/73 Pulse: 73 Respirations: 16 - Physical Exam General: Alert, Oriented x3 Neck: Supple Cardiovascular: No edema, Normal S1 S2 Gastrointestinal: Normal bowel sounds, Soft and benign Musculoskeletal: No clubbing Integumentary: Other (Minimal redness on lower extremity doubt cellulitis) Neurological: Abnormal speech - Studies Laboratory Data (last 24 hrs) 06/04/24 06/04/24 06/04/24 15:30 15:30 15:30 WBC 7.50 Hgb 12.2 L Hct 36.6 L Plt Count 166 PT 12.5 INR 1.12 Sodium 139 Potassium 3.8 BUN 89 H Creatinine 2.49 H Glucose 140 H Total Bilirubin 0.8 AST 13 L ALT 19 Alkaline Phosphatase 141 H Assessment and Plan - Problems (Diagnosis) (1) Acute on chronic renal failure Status: Acute Plan: Patient is 79 years of age admitted with acute on chronic renal failure he appears to have a mild acidosis have a prerenal component has been recently battling diarrhea and and is 2.49 mildly hyponatremic plan to admit start on IV fluids blood cultures are pending chest x-ray is negative no evidence of DVT alkaline phosphatase is mildly elevated patient's vital signs are stable afebrile urinalysis is pending white count is normal start patient on Rocephin for now Qualifiers: Chronic kidney disease stage: stage 2 (mild) - Advance Directives Does patient have a Living Will: No Does patient have a Durable POA for Healthcare: No
--- NOTE | 2024-06-04 21:06 | RAD REPORT ---
EXAM DESCRIPTION: CT - Stone Protocol - 06/04/2024 8:46 pm CLINICAL HISTORY: Flank pain. FLANK PAIN COMPARISON: Abdomen Pelvis Wo Contrast dated 05/24/2024 TECHNIQUE: Axial images were obtained without oral or IV contrast. Lack of contrast limits solid org an and vascular assessment. The [id number] spans the entirety of the system partially obscuring uppermost abdomen and lung bases. Coronal reformatted images were obtained and reviewed. All CT scans are performed using dose optimization technique as appropriate and may include automated exposure control or mA/KV adjustment according to patient size. FINDINGS: The lower lung cheema are clear. Imaged portions of the liver and spleen show no suspicious findings on non-contrast imaging. The panc reas and adrenal glands are normal. No pathologic lymphadenopathy in the abdomen or pelvis. No urinary tract stones or obstructive uropathy. No bowel obstruction, free air, free fluid or abscess. Normal appendix noted.Sigmoid diverticulosis c ray without diverticulitis. No significant bony abnormality. IMPRESSION: No urinary tract stones or obstructive uropathy.
[2024-06-04 22:18] LABS: Albumin/Globulin Ratio 1.5 (1.1-1.8); Anion Gap 10.8 mEq/L (5.0-15.0); Bilirubin Direct 0.3 mg/dL (0-0.2); Bilirubin Indirect, Calculated 0.7 mg/dL (0.2-0.8); Globulin 2.7 g/dL (2.3-3.5); Potassium 3.8 mEq/L (3.5-5.1); Protein, Total 6.7 g/dL (6.4-8.2)
[2024-06-04] MEDS ORDERED: CEFAZOLIN SODIUM 1 GM/VIAL ONE (22:24)
[2024-06-04] MEDS ORDERED: FAMOTIDINE 20 MG/2 ML VIAL IV ONE (22:24)
[2024-06-04] MEDS ORDERED: NA CHLORIDE 0.9% 0 ML ONE (22:25)
[2024-06-04] MEDS ORDERED: NA CHLORIDE 0.9% 1,000 ML ONE (22:25)
[2024-06-04] MEDS ORDERED: NA CHLORIDE 0.9% 100 ML ONE (22:32)
[2024-06-04 22:49] LABS: Uric Acid 14.1 mg/dL (3.5-7.2)
[2024-06-05] MEDS: NA CHLORIDE 0.9% 1,000 ML IV SCH (01:19)
[2024-06-05] MEDS: CEFTRIAXONE 1,000 MG in NA CHLORIDE 0.9% 50 ML IVPB SCH (01:31)
[2024-06-05 03:33] LABS: Specific Gravity 1.013 (1.005-1.030); Urine Bilirubin NEGATIVE (Negative); Urine Blood 2+ (Negative); Urine Clarity Turbid (Clear); Urine Color Light-Yellow (Yellow); Urine Glucose NEGATIVE (Negative); Urine Ketones NEGATIVE (Negative); Urine Nitrite NEGATIVE (Negative); Urine Protein 2+ (Negative); Urine Urobilinogen Normal mg/dL (0.2-1.0); Urine pH 5.5 (5.0-7.0)
[2024-06-05 03:34] LABS: Sqamous Epithelial <5 /HPF (None Seen); Urine Bacteria None Seen /HPF (<20); Urine Culture Reflex Order REFLEXED; Urine Microscopic Reflex YN ORDER UMIC; Urine Mucus Slight /HPF (None Seen); Urine RBC >50 /HPF (None Seen); Urine WBC Clump Rare /HPF (None Seen)
[2024-06-05 05:27] LABS: Absolute Eosinophils 0.2 K/uL (0-0.5); Absolute Lymphocytes (CBC) 1.1 K/uL (0.7-4.9); Absolute Monocytes 0.8 K/uL (0.1-1.3); Absolute Neutrophil 5.4 K/uL (1.8-8.0); Basophils % 0.6 % (0-1.3); Eosinophils % 2.3 % (0-4.4); Hematocrit 36.3 % (39.6-49.0); Hemoglobin 11.8 g/dL (13.6-17.9); Lymphocytes % 14.4 % (15.3-44.8); MCH 26.5 pg (27.0-35.0); MCHC 32.4 g/dL (32.0-36.0); MCV 81.6 fL (80-100); MPV 8.3 fL (7.6-11.3); Monocytes % 10.5 % (3.3-12.3); Neutrophils % 72.2 % (41.7-73.7); Platelets 137 thou/uL (152-406); RBC Red Blood Cell Count 4.45 M/uL (4.33-5.43)
[2024-06-05 05:31] LABS: Red Cell Distribution Width 22.6 % (12.1-15.2)
[2024-06-05 05:43] LABS: Albumin 3.6 g/dL (3.4-5.0); Albumin/Globulin Ratio 1.3 (1.1-1.8); Anion Gap 14.6 mEq/L (5.0-15.0); Bilirubin Total 0.6 mg/dL (0.2-1.0); Globulin 2.7 g/dL (2.3-3.5); Potassium 3.6 mEq/L (3.5-5.1); Protein, Total 6.3 g/dL (6.4-8.2)
--- NOTE | 2024-06-05 09:54 | P.PN ---
Subjective Date of Service: 06/05/24 Chief Complaint: Progressive weakness acute on chronic renal failure <Yumiko Ramon - Last Filed: 06/05/24 18:51> Date of Service: 06/05/24 Subjective: No new changes, No C/O voiced, Improving <Yovani Schmid - Last Filed: 06/07/24 04:42> Review of Systems 10-point ROS is otherwise unremarkable General: Weakness Neurological: Weakness, Incoordination <Yumiko Ramon Jean Claude - Last Filed: 06/05/24 18:51> Physical Examination - Vital Signs Temperature: 97.4 F Blood Pressure: 111/59 Pulse: 69 Respirations: 14 Pulse Ox (%): 100 - Physical Exam General: Alert, In no apparent distress, Oriented x3 HEENT: Atraumatic, Normocephalic Neck: Supple Respiratory: Normal air movement Cardiovascular: Normal pulses, Regular rate/rhythm, Normal S1 S2 Capillary refill: <2 Seconds Gastrointestinal: Normal bowel sounds Musculoskeletal: No clubbing Integumentary: No rashes Neurological: Other (Parkinsonian movements) Lymphatics: No axilla or inguinal lymphadenopathy External genitalia: Deferred Rectal: Deferred - Studies Laboratory Data (last 24 hrs) 06/04/24 06/04/24 06/04/24 15:30 15:30 15:30 WBC 7.50 Hgb 12.2 L Hct 36.6 L Plt Count 166 PT 12.5 INR 1.12 Sodium 139 Potassium 3.8 BUN 89 H Creatinine 2.49 H Glucose 140 H Total Bilirubin 0.8 AST 13 L ALT 19 Alkaline Phosphatase 141 H <Yumiko Ramonlen - Last Filed: 06/05/24 18:51> Assessment And Plan - Plan Assessment and Plan - Problems (Diagnosis) (1) Acute on chronic renal failure Status: Acute Plan: Patient is 79 years of age admitted with acute on chronic renal failure he appears to have a mild acidosis have a prerenal component has been recently battling diarrhea and and is 2.49 mildly hyponatremic plan to admit start on IV fluids blood cultures are pending chest x-ray is negative no evidence of DVT alkaline phosphatase is mildly elevated patient's vital signs are stable afebrile urinalysis is pending white count is normal start patient on Rocephin for now Qualifiers: Chronic kidney disease stage: stage 2 (mild) CHF hx gentle diuresis Diarrhea negative Cdiff on 05/24/24 check TSH Hypothyroidism TSH prior to resuming home med HTN HLD atorvastatin 40mg daily (creatinine more toward baseline) Parkinson's/Weakness restart Carbidopa/levodopa 25-100 restart Pramipexole PT eval for going home alone - Advance Directives Does patient have a Living Will: No Does patient have a Durable POA for Healthcare: No <Yumiko Ramon - Last Filed: 06/05/24 18:51> Date of Service: 06/05/24 Chart has been reviewed. Events of the last 24 hours have been noted. Case discussed with REBECCA. I performed a substantial part of the MDM during this patient's care today. I personally made or approved the documented management plan and acknowledge its risk of complications. I agree with the findings and documentation provided in the REBECCA's notes Patient with Parkinson's disease. Patient's family wanted patient to go to long-term facility. <Yovani Schmid - Last Filed: 06/07/24 04:42>
[2024-06-05] MEDS: PRAMIPEXOLE 1 MG TAB PO SCH (13:44)
[2024-06-05] MEDS: CARBIDOPA/LEVODOPA 25/100 TAB PO SCH (13:44)
[2024-06-05] MEDS: PNEUMOCOCCAL VACCINE 0.5 ML IMVAC ONE (17:29)
[2024-06-05] MEDS: METOPROLOL TAR 25 MG TAB PO SCH (17:35)
[2024-06-05] MEDS: ATORVASTATIN 40 MG TAB PO SCH (20:53)
[2024-06-06] MEDS: D5W 1,000 ML with NA BICARB 8.4% 150 MEQ IV SCH (00:11)
[2024-06-06] MEDS: D5W 1,000 ML IV ONE (01:01)
[2024-06-06] MEDS: SODIUM BICARB 50 MEQ/50ML VIAL ONE (01:03)
[2024-06-06 01:52] LABS: Anion Gap 11.1 mEq/L (5.0-15.0); Magnesium 1.7 mg/dL (1.6-2.4); Phosphorus 2.6 mg/dL (2.5-4.9); Potassium 4.1 mEq/L (3.5-5.1)
[2024-06-06 03:15] LABS: UR PROTEIN 84.5 mg/dL (<11.9); Urine Protein/Creatinine Ratio 1.34 ratio (<0.15)
--- NOTE | 2024-06-06 04:09 | CON ---
Date of Consultation: 06/05/2024 Chief Complaint: Progressive weakness, altered mental status, acute on chronic kidney injury. History Of Present Illness: The patient is an 79-year-old man with history of Parkinson's disease, hypertension, hyperlipidemia, congestive heart failure, chronic legs edema, diabetes mellitus with renal manifestation. The patient has hypertensive heart and kidney disease. He has been taking multiple medications, including metoprolol for congestive heart failure along with potassium chloride, spironolactone and hydralazine for blood pressure control and hypertension. Apparently, he was taking metformin for diabetes mellitus. He is not a very good historian. He has end-stage Parkinson's disease. He denies diarrhea, fever, congestion. 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 Family History: Sister, diabetes. Father, lung disease and emphysema. Social History: Negative for drugs but the patient has history of alcohol. Currently, he denies alcohol. Review of Systems: General: Denies fever, chills. Eyes: Denies vision changes. Ears, Nose, Mouth, and Throat: Denies sore throat, earache. Respiratory: Denies PND, orthopnea. Cardiovascular: Denies palpitation, syncope. : Denies dysuria, hematuria, incomplete voiding. All other systems are reviewed and all are negative. Physical Examination: General: The patient is oriented x3, alert. Neck: Supple. No bruits. Lungs: Equal chest expansion. Few rhonchi. Heart: S1, S2. No pericardial friction rub. Abdomen: Soft, benign, nontender. Extremities: No edema. Laboratory Data: Hemoglobin 12.2, WBC 7.5, platelet count 156,000. INR 1.12. Sodium 139, potassium 3.8, BUN 89, creatinine 2.49, glucose 140, AST 13, ALT 19, AP 141. Impression And Plan: 1. Acute on chronic kidney injury. The patient is admitted to the hospital because of elevated BUN and creatinine. The patient had some prerenal azotemia due to volume depletion in setting of gastrointestinal fluid loss. He was having diarrhea with loose bowel movements. Creatinine level was up to 2.49. The patient has underlying chronic kidney disease with diabetic nephropathy and proteinuria. The patient will continue IV fluids for hydration and to prevent prerenal azotemia. Plan is to check renal ultrasound to rule out hydronephrosis, obstructive uropathy, and urinary retention. The patient denies difficulty with urination. 2. Workup was initiated to rule out colitis and blood cultures were checked to rule out bacteremia and sepsis. Chest x-ray is negative for pneumonia. The patient will have workup to rule out deep venous thrombosis. 3. Avoid nephrotoxic medication. Avoid exposure to IV contrast. 4. Hypertension. Avoid SHAHBAZ inhibitor in setting of acute kidney injury. 5. Recommend cardiac workup to assess ejection fraction. MARA/TIFFANIE Voice ID: [id number] Report ID: [id number] MTDD
[2024-06-06] MEDS: LEVOTHYROXINE SOD 0.025 MG TAB PO SCH (06:16)
--- NOTE | 2024-06-06 07:48 | RAD REPORT ---
EXAM DESCRIPTION: US - Renal Ultrasound-Complete - 06/06/2024 6:55 am CLINICAL HISTORY: hari COMPARISON: Stone Protocol dated 06/04/2024 FINDINGS: Both kidneys are normal in size, shape and echotexture. The right kidney measures 10.5 cm. Right interpolar renal cyst measuring 2 cm. No hydronephrosis . The left kidney measures 10.5 cm. No hydronephrosis, focal mass or perinephric fluid. Pepe catheter within a partially decompressed bladder. IMPRESSION: No hydronephrosis. Benign right renal cyst.
[2024-06-06] MEDS: POTASSIUM CL SA 10 MEQ TAB PO SCH (08:46)
[2024-06-06] MEDS ORDERED: lisinopriL 10 MG TAB PO SCH (09:00)
[2024-06-06] MEDS ORDERED: SPIRONOLACTONE 25 MG TABLET PO SCH (09:00)
--- NOTE | 2024-06-06 10:13 | P.PN ---
Date of Service: 06/06/24 Subjective no new complaints. BM q am. awaiting PT and SNF eval Review of Systems 10-point ROS is otherwise unremarkable General: Weakness Neurological: Weakness, Incoordination Physical Examination - Vital Signs reviewed - Physical Exam General: Alert, In no apparent distress, Oriented x3 HEENT: Atraumatic, Normocephalic Neck: Supple Respiratory: Normal air movement Cardiovascular: Normal pulses, Regular rate/rhythm, Normal S1 S2 Capillary refill: <2 Seconds Gastrointestinal: Normal bowel sounds Musculoskeletal: No clubbing Integumentary: No rashes Neurological: Other (Parkinsonian movements) Lymphatics: No axilla or inguinal lymphadenopathy External genitalia: Deferred Rectal: Deferred Assessment and Plan - Problems (Diagnosis) (1) Acute on chronic renal failure Status: Acute Plan: Patient is 79 years of age admitted with acute on chronic renal failure he appears to have a mild acidosis have a prerenal component has been recently battling diarrhea and and is 2.49 mildly hyponatremic plan to admit start on IV fluids blood cultures are pending chest x-ray is negative no evidence of DVT alkaline phosphatase is mildly elevated patient's vital signs are stable afebrile urinalysis is pending white count is normal start patient on Rocephin for now Qualifiers: Chronic kidney disease stage: stage 2 (mild) CHF hx gentle diuresis Diarrhea negative Cdiff on 05/24/24 check TSH - 1.9 Hypothyroidism resume home med HTN continue home medications as appropriate HLD atorvastatin 40mg daily (creatinine more toward baseline) Parkinson's/Weakness Carbidopa/levodopa 25-100 Pramipexole PT eval for SNF - Advance Directives Does patient have a Living Will: No Does patient have a Durable POA for Healthcare: No <Yumiko Ramon - Last Filed: 06/06/24 10:14> Pt seen and examined. I agree with the note by the AFTER SCHOOL PROGRAM ASSISTANT. He is feeling better. Pt denies any diarrhea this am. KRISTI is improving ( cr is 1.96 <- 2.06). Will continue NS IVF and monitor renal function. Continue home meds for other chronic medical problems. <Omkar Ty - Last Filed: 06/06/24 11:56>
[2024-06-06 11:09] LABS: Anion Gap 11.2 mEq/L (5.0-15.0); Potassium 4.2 mEq/L (3.5-5.1)
--- NOTE | 2024-06-06 12:10 | P.PN ---
Subjective Date of Service: 06/06/24 Chief Complaint: Progressive weakness acute on chronic renal failure Subjective: No new changes Physical Examination - Vital Signs Temperature: 98.7 F Blood Pressure: 161/73 Pulse: 70 Respirations: 18 Pulse Ox (%): 99 - Physical Exam General: Other (chronically ill-appearing) HEENT: Atraumatic, Normocephalic Neck: Supple, JVD not distended Respiratory: Other (symmetric chest expansion) Cardiovascular: No rubs, No murmurs Gastrointestinal: Soft and benign, No guarding Musculoskeletal: No clubbing Integumentary: No warmth Neurological: Other (nonfocal) Urinary: Other (no bladder distention) External genitalia: Deferred Rectal: Deferred Assessment And Plan - Plan # KRISTI ssecondary to prerenal state +/- ATN from prolonged prerenal Serum creatinine decreased to/plateaued at 2.1 [place] by mouth fluid intake at least 2 L per day # CKD 3 patient to be secondary to hypertensive nephrosclerosis Baseline Suprane 1.5-1.8 Monitor renal panel # Severe pulmonary hypertension TTE in September 2023 showed normal LVEF 69%, severe pulmonary hypertension with RVSP more than 80 mmHg BNP significantly elevated at 9784 Hold diuretics, resume prior to hospital discharge # Hypertension Continue current medication regimen # Acidosis Received IV bicarb
[2024-06-07 04:42] LABS: Absolute Eosinophils 0.3 K/uL (0-0.5); Absolute Lymphocytes (CBC) 0.9 K/uL (0.7-4.9); Absolute Monocytes 0.6 K/uL (0.1-1.3); Absolute Neutrophil 6.2 K/uL (1.8-8.0); Basophils % 0.4 % (0-1.3); Eosinophils % 3.7 % (0-4.4); Hematocrit 31.1 % (39.6-49.0); Hemoglobin 10.8 g/dL (13.6-17.9); Lymphocytes % 11.5 % (15.3-44.8); MCH 27.3 pg (27.0-35.0); MCHC 34.7 g/dL (32.0-36.0); MCV 78.7 fL (80-100); Monocytes % 7.7 % (3.3-12.3); Neutrophils % 76.7 % (41.7-73.7); Platelets 138 thou/uL (152-406); RBC Red Blood Cell Count 3.94 M/uL (4.33-5.43); Red Cell Distribution Width 22.2 % (12.1-15.2)
[2024-06-07 04:55] LABS: Anion Gap 11.1 mEq/L (5.0-15.0); Potassium 3.1 mEq/L (3.5-5.1)
[2024-06-07 05:02] LABS: Anisocytosis 2+; Blood Morphology Comment NOTED (NOT SEEN); Ovalocytes 1+; Platelet Estimate DECR; Poikilocytosis 1+; White Blood Cell Scan OK (OK)
[2024-06-07] MEDS: POTASSIUM 25 MEQ EFFERV TAB PO ONE (06:41)
--- NOTE | 2024-06-07 08:26 | P.DS ---
Admission Date: 06/04/24 Discharge Date: 06/07/24 Reason for Admission: Progressive weakness acute on chronic renal failure Consultations: Dr. Mauricio Brief History of Present Illness: Mr. Swartz is an 79-year-old gentleman with a history of Parkinson's, chronic kidney disease, hypertension, hyperlipidemia, and hypothyroidism. He presented to the emergency department with a 2-week history of increased weakness after a diarrheal illness. Earlier this month he did have a C. difficile exam that was negative. He will be admitted to the hospital for gentle hydration, PT evaluation, and consultation with nephrology Hospital Course: On assessment in the emergency room on 06/04/2024 Mr. Swartz had a bicarb of 11, a creatinine of 2.49 with a GFR of 25. He received gentle hydration with bicarb and his diuretics were placed on hold. Mr. Swartz had formed stools every morning but otherwise no significant diarrhea. He was restarted on his Parkinson's medications. 06/07/2024 Mr. Swartz's bicarb has improved to 23, his creatinine to 1.5 with a GFR of 46. PT continued to work with Mr. Swartz and in speaking with the family he was evaluated for SNF placement. He was accepted to [facility], [place]. Nephrology recommends restarting diuretics upon discharge. <Yumiko Ramon - Last Filed: 06/07/24 08:21> Admission Date: 06/04/24 Discharge Date: 06/07/24 Hospital Course: Pt seen and examined. I agree with the note by the ORACLE ERP DEVELOPER. Pt is feeling bettre. No diarrhea. KRISTI and bicarbonate level improved with IVF. Ok to discharge pt to [facility]. <Omkar Ty - Last Filed: 06/07/24 11:39> Disposition: TRANSFER TO PRISON Discharge Condition: GOOD Vital Signs/Physical Exam: Temp Pulse Resp BP Pulse Ox 98.7 F 70 18 161/73 H 99 06/07/24 07:40 06/07/24 07:40 06/07/24 07:40 06/07/24 07:40 06/07/24 07:40 General: Alert, In no apparent distress, Oriented x3 HEENT: Atraumatic, Normocephalic Neck: Supple Respiratory: Normal air movement Cardiovascular: Normal pulses, Regular rate/rhythm, Normal S1 S2 Capillary refill: <2 Seconds Gastrointestinal: Soft and benign, No tenderness Musculoskeletal: No clubbing Integumentary: No rashes Neurological: Normal speech, Other (Parkinsonian movements), Abnormal strength Lymphatics: No axilla or inguinal lymphadenopathy External genitalia: Deferred Rectal: Deferred Laboratory Data at Discharge: WBC 8.10 thou/uL (4.3-10.9) 06/07/24 04:26 Hgb 10.8 g/dL (13.6-17.9) L 06/07/24 04:26 Hct 31.1 % (39.6-49.0) L 06/07/24 04:26 Plt Count 138 thou/uL (152-406) L 06/07/24 04:26 PT 12.5 SECONDS (9.4-12.5) 06/04/24 15:30 INR 1.12 06/04/24 15:30 Sodium 139 mEq/L (136-145) 06/07/24 04:26 Potassium 3.1 mEq/L (3.5-5.1) L D 06/07/24 04:26 BUN 40 mg/dL (7-18) H 06/07/24 04:26 Creatinine 1.50 mg/dL (0.70-1.30) H 06/07/24 04:26 Glucose 161 mg/dL (74-106) H 06/07/24 04:26 Uric Acid 14.1 mg/dL (3.5-7.2) H 06/04/24 21:18 Phosphorus 2.6 mg/dL (2.5-4.9) 06/06/24 01:13 Magnesium 1.7 mg/dL (1.6-2.4) 06/06/24 01:13 Total Bilirubin 0.6 mg/dL (0.2-1.0) 06/05/24 05:09 AST 16 U/L (15-37) 06/05/24 05:09 ALT 18 U/L (16-61) 06/05/24 05:09 Alkaline Phosphatase 121 U/L (45-117) H 06/05/24 05:09 <Ramon,Yumiko Jean Claude - Last Filed: 06/07/24 08:21> Vital Signs/Physical Exam: Temp Pulse Resp BP Pulse Ox 98.2 F 71 23 H 142/73 H 97 06/07/24 11:19 06/07/24 11:19 06/07/24 11:19 06/07/24 11:19 06/07/24 11:19 Laboratory Data at Discharge: WBC 8.10 thou/uL (4.3-10.9) 06/07/24 04:26 Hgb 10.8 g/dL (13.6-17.9) L 06/07/24 04:26 Hct 31.1 % (39.6-49.0) L 06/07/24 04:26 Plt Count 138 thou/uL (152-406) L 06/07/24 04:26 PT 12.5 SECONDS (9.4-12.5) 06/04/24 15:30 INR 1.12 06/04/24 15:30 Sodium 139 mEq/L (136-145) 06/07/24 04:26 Potassium 3.1 mEq/L (3.5-5.1) L D 06/07/24 04:26 BUN 40 mg/dL (7-18) H 06/07/24 04:26 Creatinine 1.50 mg/dL (0.70-1.30) H 06/07/24 04:26 Glucose 161 mg/dL (74-106) H 06/07/24 04:26 Uric Acid 14.1 mg/dL (3.5-7.2) H 06/04/24 21:18 Phosphorus 2.6 mg/dL (2.5-4.9) 06/06/24 01:13 Magnesium 1.7 mg/dL (1.6-2.4) 06/06/24 01:13 Total Bilirubin 0.6 mg/dL (0.2-1.0) 06/05/24 05:09 AST 16 U/L (15-37) 06/05/24 05:09 ALT 18 U/L (16-61) 06/05/24 05:09 Alkaline Phosphatase 121 U/L (45-117) H 06/05/24 05:09 <Omkar Ty - Last Filed: 06/07/24 11:39> Diet: AHA Activity: With PT <Ramon,Yumiko Jean Claude - Last Filed: 06/07/24 08:21> <Omkar Ty - Last Filed: 06/07/24 11:39> Home Medications: Atorvastatin Calcium [Lipitor] 40 mg PO DAILY 06/05/24 Carbidopa/Levodopa 25-100 [Sinemet 25-100*] 1 tab PO TID 06/05/24 Ferrous Sulfate [Ferrous Sulfate*] 325 mg PO DAILY 06/05/24 Levothyroxine Sodium 25 mcg PO DAILY 06/05/24 Lisinopril [Zestril] 10 mg PO DAILY 06/05/24 Metformin HCl [Glucophage*] 500 mg PO DAILY WITH BREAKFAST 06/05/24 Metoprolol Succinate [Toprol Xl*] 25 mg PO BID 06/05/24 Pramipexole Di-HCl [Pramipexole Dihydrochloride] 1 mg PO TID 06/05/24 Spironolactone [Aldactone*] 25 mg PO DAILY 06/05/24 Physician Discharge Instructions: On assessment in the emergency room on 06/04/2024 Mr. Swartz had a bicarb of 11, a creatinine of 2.49 with a GFR of 25. He received gentle hydration with bicarb and his diuretics were placed on hold. Mr. Swartz had formed stools every morning but otherwise no significant diarrhea. He was restarted on his Parkinson's medications. 06/07/2024 Mr. Swartz's bicarb has improved to 23, his creatinine to 1.5 with a GFR of 46. PT continued to work with Mr. Swartz and in speaking with the family he was evaluated for SNF placement. He was accepted to [facility] [place]. Nephrology recommends restarting diuretics upon discharge. Followup: Adrienne Sequeira [Primary Care Provider] -
--- NOTE | 2024-06-07 11:19 | P.PN ---
Subjective Date of Service: 06/07/24 Chief Complaint: Progressive weakness acute on chronic renal failure Subjective: No new changes Physical Examination - Vital Signs Temperature: 98.2 F Blood Pressure: 142/73 Pulse: 71 Respirations: 23 Pulse Ox (%): 97 - Physical Exam General: Other (chronically ill-appearing) HEENT: Atraumatic, Normocephalic Neck: Supple, JVD not distended Respiratory: Other (symmetric chest expansion) Cardiovascular: No rubs, No murmurs Gastrointestinal: Soft and benign, No guarding Musculoskeletal: No clubbing Integumentary: No warmth Neurological: Other (nonfocal) Urinary: Other (no bladder distention) External genitalia: Deferred Rectal: Deferred Assessment And Plan - Plan # KRISTI ssecondary to prerenal state +/- ATN from prolonged prerenal Serum creatinine decreased to 1.5 [place] by mouth fluid intake at least 2 L per day # CKD 3 patient to be secondary to hypertensive nephrosclerosis Baseline Suprane 1.5-1.8 Monitor renal panel # Hypokalemia KCl repletion prn # Severe pulmonary hypertension TTE in September 2023 showed normal LVEF 69%, severe pulmonary hypertension with RVSP more than 80 mmHg BNP significantly elevated at 9784 Resume [place] at 50 mg po daily # Hypertension Continue current medication regimen # Acidosis Received IV bicarb, monitor
[2024-06-07] MEDS: SPIRONOLACTONE 25 MG TABLET PO SCH (12:19)
--- NOTE | 2024-06-07 18:02 | P.PN ---
Date of Service: 06/07/24 Subjective no new complaints. BM q am. awaiting PT and SNF placement Review of Systems 10-point ROS is otherwise unremarkable General: Weakness Neurological: Weakness, Incoordination Physical Examination - Vital Signs reviewed - Physical Exam General: Alert, In no apparent distress, Oriented x3 HEENT: Atraumatic, Normocephalic Neck: Supple Respiratory: Normal air movement Cardiovascular: Normal pulses, Regular rate/rhythm, Normal S1 S2 Capillary refill: <2 Seconds Gastrointestinal: Normal bowel sounds Musculoskeletal: No clubbing Integumentary: No rashes Neurological: Other (Parkinsonian movements) Lymphatics: No axilla or inguinal lymphadenopathy External genitalia: Deferred Rectal: Deferred Assessment and Plan - Problems (Diagnosis) (1) Acute on chronic renal failure Status: Acute Plan: Patient is 79 years of age admitted with acute on chronic renal failure he appears to have a mild acidosis have a prerenal component has been recently battling diarrhea and and is 2.49 mildly hyponatremic plan to admit start on IV fluids blood cultures are pending chest x-ray is negative no evidence of DVT alkaline phosphatase is mildly elevated patient's vital signs are stable afebrile urinalysis is pending white count is normal start patient on Rocephin for now Qualifiers: Chronic kidney disease stage: stage 2 (mild) CHF hx gentle diuresis Diarrhea negative Cdiff on 05/24/24 check TSH - 1.9 Hypothyroidism resume home med HTN continue home medications as appropriate HLD atorvastatin 40mg daily (creatinine more toward baseline) Parkinson's/Weakness Carbidopa/levodopa 25-100 Pramipexole PT eval for SNF Awaiting SNF placement - Advance Directives Does patient have a Living Will: No Does patient have a Durable POA for Healthcare: No <Yumiko Ramon - Last Filed: 06/07/24 18:01> Pt seen and examined. I agree with the note by the WRAPPER SIZER. Will monitor renal function and continue home meds for other chronic medical problems. <Omkar Ty - Last Filed: 06/07/24 22:06>
--- NOTE | 2024-06-08 07:45 | P.PN ---
Date of Service: 06/08/24 Subjective awaiting PT and SNF placement Pepe catheter discontinued Review of Systems 10-point ROS is otherwise unremarkable Physical Examination - Vital Signs reviewed - Physical Exam General: Alert, In no apparent distress, Oriented x3 HEENT: Atraumatic, Normocephalic Neck: Supple Respiratory: Normal air movement Cardiovascular: Normal pulses, Regular rate/rhythm, Normal S1 S2 Capillary refill: <2 Seconds Gastrointestinal: Normal bowel sounds Musculoskeletal: No clubbing Integumentary: No rashes Neurological: Other (Parkinsonian movements) Lymphatics: No axilla or inguinal lymphadenopathy External genitalia: Deferred Rectal: Deferred Assessment and Plan - Problems (Diagnosis) Plan: Acute on chronic renal failure stage II CHF hx gentle diuresis Patient is 79 years of age admitted with acute on chronic renal failure he appears to have a mild acidosis have a prerenal component has been recently battling diarrhea and and is 2.49 mildly hyponatremic plan to admit start on IV fluids blood cultures are pending chest x-ray is negative no evidence of DVT alkaline phosphatase is mildly elevated patient's vital signs are stable afebrile urinalysis is pending white count is normal start patient on Rocephin for now DC Pepe catheter, monitor LUPE Diarrhea negative Cdiff on 05/24/24 check TSH - 1.9 Hypothyroidism resume home med HTN continue home medications as appropriate HLD atorvastatin 40mg daily (creatinine more toward baseline) Parkinson's/Weakness Carbidopa/levodopa 25-100 Pramipexole PT eval for SNF Awaiting SNF placement Time spent with patient 35 minutes - Advance Directives Does patient have a Living Will: No Does patient have a Durable POA for Healthcare: No <Monik Leblanc - Last Filed: 06/08/24 18:57> Pt seen and examined. I agree with the note by the [employer] DRIVER. Pt is medically stable for discharge. Waiting for SNF placement. <Omkar Ty - Last Filed: 06/08/24 21:45>
[2024-06-08 07:51] VITALS: BMI 31.2
--- NOTE | 2024-06-08 08:01 | P.DS ---
Admission Date: 06/04/24 Discharge Date: 06/08/24 Reason for Admission: Progressive weakness acute on chronic renal failure Brief History of Present Illness: Mr. Swartz is an 79-year-old gentleman with a history of Parkinson's, chronic kidney disease, hypertension, hyperlipidemia, and hypothyroidism. He presented to the emergency department with a 2-week history of increased weakness after a diarrheal illness. Earlier this month he did have a C. difficile exam that was negative. Noted to have dehydration, he will be admitted to the hospital for gentle hydration, PT evaluation, and consultation with nephrology General: Alert, In no apparent distress, Oriented x3 HEENT: Atraumatic, Normocephalic Neck: Supple Respiratory: Normal air movement Cardiovascular: Normal pulses, Regular rate/rhythm, Normal S1 S2 Capillary refill: <2 Seconds Gastrointestinal: Soft and benign, No tenderness Musculoskeletal: No clubbing Integumentary: No rashes Neurological: Normal speech, Other (Parkinsonian movements), Abnormal strength Lymphatics: No axilla or inguinal lymphadenopathy Hospital Course: Mr. Swartz presented with past medical history CKD, diarrhea, congestive heart failure. 06/04/2024 Mr. Swartz had a abnormal labs, nephrology was consulted. Bicarb of 11, a creatinine of 2.49 with a GFR of 25. He received gentle hydration with bicarb and his diuretics were placed on hold. Mr. Swartz had formed stools every morning but otherwise no significant diarrhea. He was restarted on his Parkinson's medications. 06/07/2024 Mr. Swartz's bicarb has improved to 23, his creatinine to 1.5 with a GFR of 46. PT continued to work with Mr. Swartz and in speaking with the family he was evaluated for SNF placement. He was accepted to [facility]. Nephrology recommends restarting diuretics upon discharge. He is tolerating diet, stable to discharge to [facility], follow-up with nephrology after discharge, follow-up with PCP after discharge. He was accepted to [facility]. Nephrology recommends restarting diuretics upon discharge. Patient tolerating diet, stable for discharge to care home facility. PROBLEM: hypokalemia, replaced as needed, Diarrhea, C. difficile negative Parkinson's, resume home meds, Restart diuretics when dehydration, improved, Continue home medicines as previously prescribed GOAL: Clear understanding of disease process INSTRUCTIONS: Physician Discharge Instructions: -Follow-up with PCP in 1 to 2 weeks -Please call at [phone] if any questions regarding hospital stay -Please call nursing station at [phone] if any nursing or medication qu estions -Return to the emergency room if symptoms worsen Diet: ADA, low sodium Activity: Fall precautions <Monik Leblanc - Last Filed: 06/08/24 07:57> Admission Date: 06/04/24 Discharge Date: 06/08/24 Hospital Course: Pt seen and examined. I agree with the note by the SINTER MACHINE OPERATOR. Pt is feeling better and ready to go back to SNF. No diarrhea. KRISTI and bicarbonate level improved with IVF. Ok to discharge pt to [facility]. <Omkar Ty - Last Filed: 06/08/24 11:12> Disposition: TRANSFER TO HALFWAY Discharge Condition: GOOD Vital Signs/Physical Exam: Temp Pulse Resp BP Pulse Ox 98.2 F 71 23 H 142/73 H 97 06/08/24 07:12 06/08/24 07:12 06/08/24 07:12 06/08/24 07:12 06/08/24 07:12 Laboratory Data at Discharge: WBC 8.10 thou/uL (4.3-10.9) 06/07/24 04:26 Hgb 10.8 g/dL (13.6-17.9) L 06/07/24 04:26 Hct 31.1 % (39.6-49.0) L 06/07/24 04:26 Plt Count 138 thou/uL (152-406) L 06/07/24 04:26 PT 12.5 SECONDS (9.4-12.5) 06/04/24 15:30 INR 1.12 06/04/24 15:30 Sodium 139 mEq/L (136-145) 06/07/24 04:26 Potassium 3.1 mEq/L (3.5-5.1) L D 06/07/24 04:26 BUN 40 mg/dL (7-18) H 06/07/24 04:26 Creatinine 1.50 mg/dL (0.70-1.30) H 06/07/24 04:26 Glucose 161 mg/dL (74-106) H 06/07/24 04:26 Uric Acid 14.1 mg/dL (3.5-7.2) H 06/04/24 21:18 Phosphorus 2.6 mg/dL (2.5-4.9) 06/06/24 01:13 Magnesium 1.7 mg/dL (1.6-2.4) 06/06/24 01:13 Total Bilirubin 0.6 mg/dL (0.2-1.0) 06/05/24 05:09 AST 16 U/L (15-37) 06/05/24 05:09 ALT 18 U/L (16-61) 06/05/24 05:09 Alkaline Phosphatase 121 U/L (45-117) H 06/05/24 05:09 <Monik Leblanc - Last Filed: 06/08/24 07:57> Vital Signs/Physical Exam: Temp Pulse Resp BP Pulse Ox 97.6 F 70 16 189/86 H 98 06/08/24 08:00 06/08/24 08:00 06/08/24 08:00 06/08/24 08:00 06/08/24 08:00 Laboratory Data at Discharge: WBC 8.10 thou/uL (4.3-10.9) 06/07/24 04:26 Hgb 10.8 g/dL (13.6-17.9) L 06/07/24 04:26 Hct 31.1 % (39.6-49.0) L 06/07/24 04:26 Plt Count 138 thou/uL (152-406) L 06/07/24 04:26 PT 12.5 SECONDS (9.4-12.5) 06/04/24 15:30 INR 1.12 06/04/24 15:30 Sodium 139 mEq/L (136-145) 06/07/24 04:26 Potassium 3.1 mEq/L (3.5-5.1) L D 06/07/24 04:26 BUN 40 mg/dL (7-18) H 06/07/24 04:26 Creatinine 1.50 mg/dL (0.70-1.30) H 06/07/24 04:26 Glucose 161 mg/dL (74-106) H 06/07/24 04:26 Uric Acid 14.1 mg/dL (3.5-7.2) H 06/04/24 21:18 Phosphorus 2.6 mg/dL (2.5-4.9) 06/06/24 01:13 Magnesium 1.7 mg/dL (1.6-2.4) 06/06/24 01:13 Total Bilirubin 0.6 mg/dL (0.2-1.0) 06/05/24 05:09 AST 16 U/L (15-37) 06/05/24 05:09 ALT 18 U/L (16-61) 06/05/24 05:09 Alkaline Phosphatase 121 U/L (45-117) H 06/05/24 05:09 <Omkar Ty - Last Filed: 06/08/24 11:12> Diet: AHA Activity: With PT <Monik Leblanc - Last Filed: 06/08/24 07:57> <Omkar Ty - Last Filed: 06/08/24 11:12> Home Medications: Atorvastatin Calcium [Lipitor] 40 mg PO DAILY 06/05/24 Carbidopa/Levodopa 25-100 [Sinemet 25-100*] 1 tab PO TID 06/05/24 Ferrous Sulfate [Ferrous Sulfate*] 325 mg PO DAILY 06/05/24 Levothyroxine Sodium 25 mcg PO DAILY 06/05/24 Lisinopril [Zestril] 10 mg PO DAILY 06/05/24 Metformin HCl [Glucophage*] 500 mg PO DAILY WITH BREAKFAST 06/05/24 Metoprolol Succinate [Toprol Xl*] 25 mg PO BID 06/05/24 Pramipexole Di-HCl [Pramipexole Dihydrochloride] 1 mg PO TID 06/05/24 Spironolactone [Aldactone*] 25 mg PO DAILY 06/05/24 Physician Discharge Instructions: Mr. Swartz presented with CKD, diarrhea, congestive heart failure. He is tolerating diet, stable to discharge to [facility], follow-up with nephrology after discharge, follow-up with PCP after discharge. He was accepted to [facility]. Nephrology recommends restarting diuretics upon discharge. Patient tolerating diet, stable for discharge to care home facility. PROBLEM: hypokalemia, replaced as needed, Diarrhea, C. difficile negative Parkinson's, resume home meds, Restart diuretics when dehydration, improved, Continue home medicines as previously prescribed GOAL: Clear understanding of disease process INSTRUCTIONS: Physician Discharge Instructions: -Follow-up with PCP in 1 to 2 weeks -Please call at [phone] if any questions regarding hospital stay -Please call nursing station at [phone] if any nursing or medication questions -Return to the emergency room if symptoms worsen Diet: ADA, low sodium Activity: Fall precautions Followup: Camacho Donald MD [ACTIVE - CAN ADMIT] - 1-2 Weeks Adrienne Sequeira [Primary Care Provider] - 1-2 Weeks
[2024-06-08] MEDS ORDERED: ATORVASTATIN 40 MG TAB PO SCH (21:00)
[2024-06-08] MEDS ORDERED: CARBIDOPA/LEVODOPA 25/100 TAB PO SCH (21:00)
[2024-06-08] MEDS ORDERED: PRAMIPEXOLE DI HCL 1 MG PO SCH (21:00)
[2024-06-08] MEDS: POTASSIUM CL SA 10 MEQ TAB PO ONE (21:23)
[2024-06-08] MEDS: METOPROLOL XL 25 MG TAB PO SCH (21:24)
[2024-06-08] MEDS: PRAMIPEXOLE 1 MG TAB PO SCH (21:26)
[2024-06-08 23:37] VITALS: O2SAT 97
--- NOTE | 2024-06-09 00:57 | PN ---
Date of Progress Note: 06/08/2024 Chief Complaint: Acute on chronic kidney injury, progressive weakness, deconditioning. Subjective: The patient denies complaints today. Denies PND, orthopnea. Physical Examination: Lungs: Diminished breath sounds at bases. Heart: S1, S2. Abdomen: Soft. Extremities: Minimal edema. Impression And Plan: 1.Acute kidney injury secondary to prerenal state, associated with acute tubular necrosis from prolo nged prerenal state. Serum creatinine level is improving to 1.5. The patient will continue p.o. flu id intake. Monitor fluid balance. 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 Baseline creatinine lev el ranging from 1.5 to 1.8. Monitor renal panel. 3.Hypokalemia. Potassium chloride repletion as needed. Monitor lab work and check magnesium level. 4.Severe pulmonary hypertension. TTE in September 2023 showed ejection fraction of left ventricular ejection fraction 69. Severe pulmonary hypertension with RVSP more than 18 mmHg. BNP remains signif icantly elevated. Resume spironolactone at 50 mg p.o. daily. 5.Hypertension. Continue current medication regimen. 6.Acidosis. The patient received IV bicarbonate. Monitor labs. EB/MODL Voice ID: [id number] Report ID: [id number]
[2024-06-09 06:29] LABS: Anion Gap 5.9 mEq/L (5.0-15.0); Potassium 3.9 mEq/L (3.5-5.1)
--- NOTE | 2024-06-09 07:46 | P.DS ---
Admission Date: 06/04/24 Discharge Date: 06/09/24 Disposition: TRANSFER TO PRISON Discharge Condition: GOOD Reason for Admission: Progressive weakness acute on chronic renal failure Brief History of Present Illness: Mr. Swartz is an 79-year-old gentleman with a history of Parkinson's, chronic kidney disease, hypertension, hyperlipidemia, and hypothyroidism. He presented to the emergency department with a 2-week history of increased weakness after a diarrheal illness. Earlier this month he did have a C. difficile exam that was negative. Noted to have dehydration, he will be admitted to the hospital for gentle hydration, PT evaluation, and consultation with nephrology General: Alert, In no apparent distress, Oriented x3 HEENT: Atraumatic, Normocephalic Neck: Supple Respiratory: Normal air movement Cardiovascular: Normal pulses, Regular rate/rhythm, Normal S1 S2 Capillary refill: <2 Seconds Gastrointestinal: Soft and benign, No tenderness Musculoskeletal: No clubbing Integumentary: No rashes Neurological: Normal speech, Other (Parkinsonian movements), Abnormal strength Lymphatics: No axilla or inguinal lymphadenopathy Hospital Course: Mr. Swartz presented with past medical history CKD, diarrhea, congestive heart failure. 06/04/2024 Mr. Swartz had a abnormal labs, nephrology was consulted. Bicarb of 11, a creatinine of 2.49 with a GFR of 25. He received gentle hydration with bicarb and his diuretics were placed on hold. Mr. Swartz had formed stools every morning but otherwise no significant diarrhea. He was restarted on his Parkinson's medications. 06/07/2024 Mr. Swartz's bicarb has improved to 23, his creatinine to 1.5 with a GFR of 46. PT continued to work with Mr. Swartz and in speaking with the family he was evaluated for SNF placement. He was accepted to [facility]. Nephrology recommends restarting diuretics upon discharge. He is tolerating diet, stable to discharge to [facility], follow-up with nephrology after discharge, follow-up with PCP after discharge. He was accepted to [facility]. Nephrology recommends restarting diuretics upon discharge. Patient tolerating diet, stable for discharge to long term facility. PROBLEM: hypokalemia, replaced as needed, Diarrhea, C. difficile negative Parkinson's, resume home meds, Restart diuretics when dehydration, improved, Continue home medicines as previously prescribed GOAL: Clear understanding of disease process INSTRUCTIONS: Physician Discharge Instructions: -Follow-up with PCP in 1 to 2 weeks -Please call at [phone] if any questions regarding hospital stay -Please call nursing station at [phone] if any nursing or medication questions -Return to the emergency room if symptoms worsen Diet: ADA, low sodium Activity: Fall precautions Vital Signs/Physical Exam: Temp Pulse Resp BP Pulse Ox 98.2 F 69 18 144/76 H 96 06/09/24 04:00 06/09/24 04:00 06/09/24 04:00 06/09/24 04:00 06/09/24 04:00 Laboratory Data at Discharge: WBC 8.10 thou/uL (4.3-10.9) 06/07/24 04:26 Hgb 10.8 g/dL (13.6-17.9) L 06/07/24 04:26 Hct 31.1 % (39.6-49.0) L 06/07/24 04:26 Plt Count 138 thou/uL (152-406) L 06/07/24 04:26 PT 12.5 SECONDS (9.4-12.5) 06/04/24 15:30 INR 1.12 06/04/24 15:30 Sodium 137 mEq/L (136-145) 06/09/24 06:00 Potassium 3.9 mEq/L (3.5-5.1) 06/09/24 06:00 BUN 19 mg/dL (7-18) H 06/09/24 06:00 Creatinine 1.44 mg/dL (0.70-1.30) H 06/09/24 06:00 Glucose 178 mg/dL (74-106) H 06/09/24 06:00 Uric Acid 14.1 mg/dL (3.5-7.2) H 06/04/24 21:18 Phosphorus 2.6 mg/dL (2.5-4.9) 06/06/24 01:13 Magnesium 1.7 mg/dL (1.6-2.4) 06/06/24 01:13 Total Bilirubin 0.6 mg/dL (0.2-1.0) 06/05/24 05:09 AST 16 U/L (15-37) 06/05/24 05:09 ALT 18 U/L (16-61) 06/05/24 05:09 Alkaline Phosphatase 121 U/L (45-117) H 06/05/24 05:09 Home Medications: Atorvastatin Calcium [Lipitor] 40 mg PO DAILY 06/05/24 Carbidopa/Levodopa 25-100 [Sinemet 25-100*] 1 tab PO TID 06/05/24 Ferrous Sulfate [Ferrous Sulfate*] 325 mg PO DAILY 06/05/24 Levothyroxine Sodium 25 mcg PO DAILY 06/05/24 Lisinopril [Zestril] 10 mg PO DAILY 06/05/24 Metformin HCl [Glucophage*] 500 mg PO DAILY WITH BREAKFAST 06/05/24 Metoprolol Succinate [Toprol Xl*] 25 mg PO BID 06/05/24 Pramipexole Di-HCl [Pramipexole Dihydrochloride] 1 mg PO TID 06/05/24 Spironolactone [Aldactone*] 25 mg PO DAILY 06/05/24 Physician Discharge Instructions: Mr. Swartz presented with CKD, diarrhea, congestive heart failure. He is tolerating diet, stable to discharge to [facility], follow-up with nephrology after discharge, follow-up with PCP after discharge. He was accepted to [facility]. Nephrology recommends restarting diuretics upon discharge. Patient tolerating diet, stable for discharge to long term facility. PROBLEM: hypokalemia, replaced as needed, Diarrhea, C. difficile negative Parkinson's, resume home meds, Restart diuretics when dehydration, improved, Continue home medicines as previously prescribed GOAL: Clear understanding of disease process INSTRUCTIONS: Physician Discharge Instructions: -Follow-up with PCP in 1 to 2 weeks -Please call at [phone] if any questions regarding hospital stay -Please call nursing station at [phone] if any nursing or medication questions -Return to the emergency room if symptoms worsen Diet: ADA, low sodium Activity: Fall precautions Diet: AHA Activity: With PT Followup: Camacho Donald MD [ACTIVE - CAN ADMIT] - 1-2 Weeks Adrienne Sequeira [Primary Care Provider] - 1-2 Weeks
--- NOTE | 2024-06-09 08:39 | ECHO ---
HEIGHT: 5 ft 7 in WEIGHT: 199 lb 8 oz DATE OF STUDY: 06/08/[address]: Yumiko Ramon TRACK REPAIRER-BC 2-DIMENSIONAL: YES M.MODE: YES DOPPLER: YES COLOR FLOW: YES TDS: PORTABLE: YES DEFINITY: BUBBLE STUDY: DIAGNOSIS: ASSESSMENT OF EJECTION FRACTION CARDIAC HISTORY: CATHERIZATION: YES SURGERY: YES PROSTHETIC VALVE: PACEMAKER: YES MEASUREMENTS (cm) DIASTOLIC (NORMALS) SYSTOLIC (NORMALS) IVSd 1.4 (0.6-1.2) LA Diam 4.3 (1.9-4.0) LVEF 20-25% LVIDd 4.0 (3.5-5.7) LVIDs 2.9 (2.0-3.5) %FS LVPWd 1.0 (0.6-1.2) Ao Diam 2.8 (2.0-3.7) 2 DIMENSIONAL ASSESSMENT: RIGHT ATRIUM: NORMAL LEFT ATRIUM: NORMAL RIGHT VENTRICLE: NORMAL LEFT VENTRICLE: NORMAL TRICUSPID VALVE: MILD TRICUSPID REGURGITATION MITRAL VALVE: MILD MITRAL REGURGITATION PULMONIC VALVE: NORMAL AORTIC VALVE: NOT WELL VISUALIZED, MEAN GRADIENT 24 mmHg PERICARDIAL EFFUSION: NONE AORTIC ROOT: NORMAL LEFT VENTRICULAR WALL MOTION: SEVERE GLOBAL HYPOKINESIS DOPPLER/COLOR FLOW: DIASTOLIC DYSFUNCTION COMMENTS: 1. SEVERE REDUCED LEFT VENTRICULAR SYSTOLIC FUCNTION, EJECTION FRACTION 20-25%, SEVERE GLOBAL HYPOKINESIS 2. DIASTOLIC HYPOKINESIS 3. SEVERE PULMONARY HYPERTENSION (RIGHT VENTRICULAR SYSTOLIC PRESSURE GREATER THAN 60 mmHg) 4. ELEVATED FILLING PRESSURE (RIGHT ATRIUM PRESSURE GREATER THAN 20 mmHg) TECHNOLOGIST: VENESSA JOHNSON [facility]
[2024-06-09] MEDS ORDERED: LEVOTHYROXINE SOD 0.025 MG TAB PO SCH (09:00)
[2024-06-09] MEDS ORDERED: SPIRONOLACTONE 25 MG TABLET PO SCH (09:00)
[2024-06-09] MEDS: lisinopriL 10 MG TAB PO SCH (09:38)
[2024-06-09] MEDS ORDERED: FERROUS SULFATE 325 MG TAB PO SCH (12:00)
[2024-06-09 12:33] VITALS: BP 153/87; TEMP 97.8
--- NOTE | 2024-06-09 18:02 | EKG ---
Test Date: 2024-06-04 Test Time: 15:18:25 [employer] Registrar: MARIAA MEASUREMENT RESULTS: Intervals: Rate: 70 NV: QRSD: 200 QT: 456 QTc: 492 [place]: P: NV: QRS: -81 T: 102 INTERPRETIVE STATEMENTS: Electronic ventricular pacemaker Compared to ECG 05/24/2024 17:16:54 No significant changes Electronically Signed On 06-09-24 17:52:16 CDT by Constantin Blount
== END 2024-06-09 12:48 | DRG 682 ==
LOC: ER 14:48 → ERHOLD 20:33 → 2ND 06-05 00:15
PROVIDERS: ADMIT Internal Medicine Sleep Medicine; ATTEND Hospitalist
PROC: 0T9B70Z Drainage of Bladder with Drainage Device, Via Natural or Artificial Opening (ICD-10-PCS; principal; 2024-06-08)
DX: N17.0 Acute kidney failure with tubular necrosis (principal); I50.33 Acute on chronic diastolic (congestive) heart failure; E87.20 Acidosis, unspecified; E87.1 Hypo-osmolality and hyponatremia; I13.0 Hypertensive heart and chronic kidney disease with heart failure and stage 1 through stage 4 chronic kidney disease, or unspecified chronic kidney disease; N18.30 Chronic kidney disease, stage 3 unspecified; E11.65 Type 2 diabetes mellitus with hyperglycemia; E11.40 Type 2 diabetes mellitus with diabetic neuropathy, unspecified; E86.0 Dehydration; I27.20 Pulmonary hypertension, unspecified; I48.91 Unspecified atrial fibrillation; E87.6 Hypokalemia; E03.9 Hypothyroidism, unspecified; E78.5 Hyperlipidemia, unspecified; G20.A1 Parkinson's disease without dyskinesia, without mention of fluctuations; I25.10 Atherosclerotic heart disease of native coronary artery without angina pectoris; Z88.0 Allergy status to penicillin; Z88.5 Allergy status to narcotic agent; Z95.1 Presence of aortocoronary bypass graft; Z79.82 Long term (current) use of aspirin; Z79.890 Hormone replacement therapy; Z79.899 Other long term (current) drug therapy
CPT/HCPCS: 36415; 51702; 71045; 74176; 76377; 76770; 80048; 80053; 80076; 81001; 82550; 82570; 83605; 83735; 83880; 83935; 84100; 84132; 84156; 84300; 84443; 84484; 84550; 85025; 85610; 86021; 87040; 87086; 87088; 93005; 93306; 93970; 96365; 96375; 97116; 97161; 97530; 99285; J0690; J0696; J7030; J7050

== ENCOUNTER 2024-10-31 04:45 | Emergency (ER) | payer OTHER ==
--- NOTE | 2024-10-31 06:09 | ER ---
Nurse's Notes [facility] Name: Spenser Swartz Jr Age: 79 yrs Sex: Male : 1945 Arrival Date: 10/31/2024 Time: 04:45 Bed 5 Private MD: Diagnosis: Scalp Laceration/ Open wound of scalp Presentation: 10/31 05:00 Chief complaint: Patient states: got tangled and fell out of bed hitting my head on vc1 some wooden furniture. Coronavirus screen: Client denies travel out of the [place] in the last 14 days. At this time, the client does not indicate any symptoms associated with coronavirus-19. Ebola Screen: Patient negative for fever greater than or equal to 101.5 degrees Fahrenheit, and additional compatible Ebola Virus Disease symptoms Patient denies exposure to infectious person. Patient denies travel to an Ebola-affected area in the 21 days before illness onset. No symptoms or risks identified at this time. Complicating Factors: There are no complicating factors for this patient. Initial Sepsis Screen: Does the patient meet any 2 criteria? No. Patient's initial sepsis screen is negative. Does the patient have a suspected source of infection? No. Patient's initial sepsis screen is negative. Risk Assessment: Do you want to hurt yourself or someone else? Patient reports no desire to harm self or others. Note No LOC no blood thinners. Onset of symptoms was October 31, 2024. 05:00 Method Of Arrival: Ambulatory vc1 05:00 Acuity: AMA 3 vc1 Triage Assessment: 05:05 General: Appears in no apparent distress. comfortable, Behavior is calm, cooperative, vc1 appropriate for age. Pain: Denies pain. EENT: No deficits noted. No signs and/or symptoms were reported regarding the EENT system. Neuro: Level of Consciousness is awake, alert, obeys commands, Oriented to person, place, time, situation, Appropriate for age Denies headache. Cardiovascular: Capillary refill < 3 seconds Patient's skin is warm and dry. Respiratory: Airway is patent Respiratory effort is even, unlabored, Respiratory pattern is regular, symmetrical, Breath sounds are clear bilaterally. GI: No deficits noted. No signs and/or symptoms were reported involving the gastrointestinal system. : No deficits noted. No signs and/or symptoms were reported regarding the genitourinary system. Derm: Skin is thin, Wound noted occipital area. Musculoskeletal: No deficits noted. No signs and/or symptoms reported regarding the musculoskeletal system. Injury Description: Laceration sustained to occipital area. Historical: - Allergies: 05:02 Codeine; vc1 05:02 PENICILLINS; vc1 - PMHx: 05:02 Atrial Fib; Diabetes - NIDDM; Hypertension; Parkinson's disease; vc1 - PSHx: 05:02 L shoulder rotator cuff; triple bypass; achilles tendon SX; vc1 - Immunization history:: Client reports receiving the 2nd dose of the Covid vaccine, Last tetanus immunization: < 5 years ago Flu vaccine is not up to date. - Infectious Disease History:: Denies. - Social history:: Smoking status: Patient/guardian denies using tobacco, but has a distant history of tobacco abuse. Screenin:03 [facility] ED Fall Risk Assessment (Adult) History of falling in the last 3 months, vc1 including since admission Yes- single mechanical fall (1 pt) Confusion or Disorientation No (0 pts) Intoxicated or Sedated No (0 pts) Impaired Gait No (0 pts) Mobility Assist Device Used Yes (1 pt) Altered Elimination No (0 pt) Score/Fall Risk Level 0 - 2 = Low Risk Oriented to surroundings, Maintained a safe environment, Educated pt \T\ family on fall prevention, incl call for assistance when getting out of bed, Hourly rounding (assess needs \T\ fall precautionary measures) done. Abuse screen: Denies threats or abuse. Nutritional screening: No deficits noted. Tuberculosis screening: No symptoms or risk factors identified. Assessment: 05:20 General: Appears in no apparent distress. comfortable. Pain: Complains of pain in al5 scalp. Neuro: Level of Consciousness is awake, alert, obeys commands, Oriented to person, place, time, situation. Cardiovascular: Capillary refill < 3 seconds Patient's skin is warm and dry. Respiratory: Airway is patent Respiratory effort is even, unlabored, Respiratory pattern is regular, symmetrical. GI: No signs and/or symptoms were reported involving the gastrointestinal system. : No signs and/or symptoms were reported regarding the genitourinary system. EENT: No signs and/or symptoms were reported regarding the EENT system. Derm: laceration to scalp. Musculoskeletal: use of walker. 05:20 Injury Description: Laceration sustained to occipital area is clean, 2.6 to 7.5 cm al5 long, bleeding moderately. Vital Signs: 05:00 BP 139 / 73; Pulse 73; Resp 14; Temp 97; Pulse Ox 97% ; Weight 83.91 kg; Height 5 ft. 6 vc1 in. ; Pain 0/10; 05:36 BP 136 / 65; Pulse 76; Resp 14; Pulse Ox 97% on R/A; al5 06:17 BP 119 / 64; Pulse 72; Resp 16; Pulse Ox 97% on R/A; al5 05:00 Body Mass Index 29.86 (83.91 kg, 167.64 cm) vc1 05:00 Pain Scale: Adult vc1 ED Course: 04:48 Patient arrived in ED. [email or web address] 04:48 Mitch May MD is Attending Physician. ec2 04:51 Ashanti Marina, RN is Primary Nurse. al5 05:02 Triage completed. vc1 05:03 Arm band placed on right wrist. vc1 05:07 Patient has correct armband on for positive identification. Bed in low position. Call vc1 light in reach. Provided Education on: CT. Pulse ox on. NIBP on. 05:14 CT Head Brain wo Cont In Process Unspecified. EDMS 05:46 Assist provider with laceration repair on scalp and occipital area that was between 2.6 al5 to 7.5 cm using amna. Set up tray. Performed by Mitch May MD Patient tolerated well. Patient did not have IV access during this emergency room visit. Administered Medications: No medications were administered Medication: 05:07 VIS not applicable for this client. vc1 Outcome: 06:09 Discharge ordered by . ec2 06:17 Discharged to home ambulatory, with family, al5 06:17 Condition: good 06:17 Discharge instructions given to patient, family, Instructed on discharge instructions, follow up and referral plans. 06:17 Patient left the ED. al5 Signatures: Dispatcher [employer] EDMS Cynthia Long [email or web address] Juliet Rodriguez, RN RN vc1 Mitch May MD MD ec2 Ashanti Marina RN RN al5 Corrections: (The following items were deleted from the chart) 05:03 05:02 PSHx: achilles tendon SX; vc1 vc1 05:03 05:02 PSHx: achilles tendon SX; vc1 vc1
--- NOTE | 2024-10-31 06:09 | EDPHYS ---
Physician Documentation [facility] Name: Spenser Swartz Jr Age: 79 yrs Sex: Male : 1945 Arrival Date: 10/31/2024 Time: 04:45 Bed 5 Private MD: ED Physician Mitch May HPI: 10/31 04:55 This 79 yrs old Male presents to ER via Unassigned with complaints of ec2 Laceration To Head. 04:55 Patient arrives today for evaluation of a fall after falling out of bed. Reports no ec2 LOC, not on blood thinners. Has sustained a laceration however family member had wrapped it up. Up-to-date on his tetanus shot, states that was definitely within the past 5 years. Denies any prodromal symptoms, no chest pain, no shortness of breath, no abdominal pain.. Historical: - Allergies: 05:02 Codeine; vc1 05:02 PENICILLINS; vc1 - PMHx: 05:02 Atrial Fib; Diabetes - NIDDM; Hypertension; Parkinson's disease; vc1 - PSHx: 05:02 L shoulder rotator cuff; triple bypass; achilles tendon SX; vc1 - Immunization history:: Client reports receiving the 2nd dose of the Covid vaccine, Last tetanus immunization: < 5 years ago Flu vaccine is not up to date. - Infectious Disease History:: Denies. - Social history:: Smoking status: Patient/guardian denies using tobacco, but has a distant history of tobacco abuse. ROS: 04:55 Constitutional: as per hpi ec2 Exam: 04:55 Constitutional: GEN: NAD Head: atraumatic Eyes: EOMI Ears: External ears are ec2 normal. CV: regular rate LUNGS: no respiratory distress ABD: non-distended SKIN: Laceration to the back of the head. MSK: no evidence of trauma Vital Signs: 05:00 BP 139 / 73; Pulse 73; Resp 14; Temp 97; Pulse Ox 97% ; Weight 83.91 kg; Height 5 ft. 6 vc1 in. ; Pain 0/10; 05:36 BP 136 / 65; Pulse 76; Resp 14; Pulse Ox 97% on R/A; al5 06:17 BP 119 / 64; Pulse 72; Resp 16; Pulse Ox 97% on R/A; al5 05:00 Body Mass Index 29.86 (83.91 kg, 167.64 cm) vc1 05:00 Pain Scale: Adult vc1 Laceration: 05:38 Wound Repair of 5cm ( 2.0in ) subcutaneous laceration to scalp. Distal ec2 neuro/vascular/tendon intact. Skin closed with 7 1-0 Dianna using staple gun. Patient tolerated well. MDM: 04:48 Medical Screening Exam initiated ec2 04:55 Data reviewed: vital signs, nurses notes. ED course: Patient arrives today for ec2 evaluation of a scalp injury. Examination yields scalp findings as above. Will obtain CT scan of the head to evaluate for intracranial injury. Differential diagnosis considered includes scalp laceration, intracranial brain bleed, C-spine fracture.. 05:38 ED course: Wound clean, laceration exposed approximately 5 cm in size, I placed 7 ec2 dianna in it without issue.. 06:08 ED course: CT scan of the head shows no acute intracranial abnormality. Will discharge ec2 home. Return precautions given.. 10/31 04:51 Order name: CT Head Brain wo Cont ec2 10/31 04:55 Order name: Wound Care; Complete Time: 05:31 ec2 Administered Medications: No medications were administered Disposition Summary: 10/31/24 06:09 Discharge Ordered Notes: You need to have your dianna removed in the next 7-10 days
Location: Home ec2 Condition: Stable ec2 Diagnosis - Scalp Laceration/ Open wound of scalp ec2 Followup: ec2 - With: Private Physician - When: - Reason: Re-evaluation by your physician Discharge Instructions: - Discharge Summary Sheet ec2 - Sutures, Dianna, or Adhesive Wound Closure, [id number] ec2 Forms: - Medication Reconciliation Form ec2 - Antibiotic Education ec2 - Prescription Opioid Use ec2 - Patient Portal Instructions ec2 - Leadership Thank You Letter ec2 Signatures: Dispatcher [employer] EDMS Juliet Rodriguez RN RN vc1 Mitch May MD MD ec2 Corrections: (The following items were deleted from the chart) 04:52 04:52 Head Brain Wo Cont+[id number].RAD.BRZ ordered. EDMS EDMS 04:57 04:55 Constitutional: GEN: NAD Head: atraumatic Eyes: EOMI Ears: External ears are ec2 normal. CV: regular rate LUNGS: no respiratory distress ABD: non-distended SKIN: no evidence of rashes MSK: no evidence of trauma ec2 05:03 05:02 PSHx: achilles tendon SX; vc1 vc1 05:03 05:02 PSHx: achilles tendon SX; vc1 vc1
--- NOTE | 2024-10-31 06:17 | RAD REPORT ---
PROCEDURE: CT Head Without Intravenous Contrast CLINICAL INDICATION: The patient is 79 years old and is Male; head injury Bed Name: 5 TECHNIQUE: Axial computed tomography images of the head/brain without intravenous contrast. Sagittal and coron al reformatted images were created and reviewed. This CT exam was performed using one or more of the following dose reduction techniques: automated exposure control, adjustment of the mA and/or kV according to patient size, and/or use of iterative reconstruction technique. COMPARISON: No relevant prior studies available. FINDINGS: BRAIN: Mild to moderate global cerebral atrophy with commensurate sulcal and ventricular enlargemen t, not greater than expected for patient age. No extra-axial fluid collection. No intracranial hemorrhage. No transtentorial herniation. No focal jason-white matter differentiation abnormality. MIDLINE SHIFT: No midline shift. VENTRICLES: See above. BONES/JOINTS: Right orbital floor blowout fracture with mesh placement. No fracture of the calvarium or acute fracture of the visualized facial bones. SOFT TISSUES: Small right of midline occipital scalp contusion with overlying bandage material. SINUSES: No masses, bony erosion or evidence of acute sinusitis. MASTOID AIR CELLS: Unremarkable as visualized. No mastoid effusion. IMPRESSION: 1. Small right of midline occipital scalp contusion with overlying bandage material. 2. Chronic and senescent changes with no acute intracranial abnormality. No acute fracture of the c alvarium or visualized facial bones. 3. Right orbital floor blowout fracture with mesh placement. Electronically signed by: Zach Gallardo MD 10/31/2024 06:05 AM [facility] Due to temporary technical issues with the PACS/[employer] reporting system, reports are being jorge luis d by the in-house radiologist without review as a courtesy to ensure prompt reporting the interpreting radiologist is fully responsible for the content of the report. Transcribed Date/Time: 10/31/2024 6:17 AM
[2024-11-03 15:04] VITALS: BP 119/64; TEMP 97; O2SAT 97
== END 2024-10-31 06:17 | disposition home or self-care (01) ==
LOC: ER 04:45
PROC: 0JQ00ZZ Repair Scalp Subcutaneous Tissue and Fascia, Open Approach (ICD-10-PCS; principal; 2024-10-31)
DX: S01.01XA Laceration without foreign body of scalp, initial encounter (principal); I48.91 Unspecified atrial fibrillation; E11.9 Type 2 diabetes mellitus without complications; I10 Essential (primary) hypertension; G20.A1 Parkinson's disease without dyskinesia, without mention of fluctuations; W06.XXXA Fall from bed, initial encounter
CPT/HCPCS: 12002; 70450; 99283

== ENCOUNTER 2024-11-08 20:26 | Inpatient (IN) | payer OTHER ==
[2024-11-08 21:19] LABS: SARS-CoV-2 Antigen CONTROL BLUE LINE VIS/BG OK; SARS-CoV-2 Antigen Rapid Res Negative (Negative)
[2024-11-08 21:23] LABS: Absolute Lymphocytes (CBC) 0.7 K/uL (0.7-4.9); Absolute Monocytes 0.9 K/uL (0.1-1.3); Absolute Neutrophil 10.2 K/uL (1.8-8.0); Basophils % 0.4 % (0-1.3); Eosinophils % 0.1 % (0-4.4); Hematocrit 30.8 % (39.6-49.0); Hemoglobin 9.9 g/dL (13.6-17.9); Lymphocytes % 5.8 % (15.3-44.8); MCH 25.7 pg (27.0-35.0); MCHC 32.3 g/dL (32.0-36.0); MCV 79.7 fL (80-100); MPV 7.7 fL (7.6-11.3); Monocytes % 7.2 % (3.3-12.3); Neutrophils % 86.5 % (41.7-73.7); Platelets 202 thou/uL (152-406); RBC Red Blood Cell Count 3.86 M/uL (4.33-5.43); Red Cell Distribution Width 18.9 % (12.1-15.2)
[2024-11-08 21:30] LABS: Barbiturates NEGATIVE (NEGATIVE); Benzodiazepines NEGATIVE (NEGATIVE); Cocaine NEGATIVE (NEGATIVE); METHAMPHETAM NEGATIVE (NEGATIVE); Methadone NEGATIVE (NEGATIVE); Opiates NEGATIVE (NEGATIVE); Phencyclidine NEGATIVE (NEGATIVE); Specific Gravity 1.007 (1.005-1.030); Sqamous Epithelial <5 /HPF (None Seen); THC Cannibis NEGATIVE (NEGATIVE); Urine Bacteria None Seen /HPF (<20); Urine Bilirubin NEGATIVE (Negative); Urine Blood Negative (Negative); Urine Clarity Clear (Clear); Urine Color Colorless (Yellow); Urine Culture Reflex Order NOT NEEDED; Urine Glucose 4+ (Over) (Negative); Urine Ketones NEGATIVE (Negative); Urine Microscopic Reflex YN ORDER UMIC; Urine Mucus Slight /HPF (None Seen); Urine Nitrite NEGATIVE (Negative); Urine Protein TRACE (Negative); Urine RBC <5 /HPF (None Seen); Urine Urobilinogen Normal (Normal); Urine WBC <5 /HPF (<5); Urine pH 5.5 (5.0-7.0)
[2024-11-08 21:33] LABS: PT Prothrombin Time 15.5 SECONDS (9.4-12.5); Protime INR 1.48
[2024-11-08 21:47] LABS: PTT, Activated Partial Thromb 31.9 SECONDS (24.3-36.9)
[2024-11-08 21:49] LABS: AST/SGOT 14 U/L (15-37); Albumin 3.1 g/dL (3.4-5.0); Albumin/Globulin Ratio 0.9 (1.1-1.8); Alkaline Phosphatase 149 U/L (45-117); Anion Gap 12.3 mEq/L (5.0-15.0); BUN Blood Urea Nitrogen 48 mg/dL (7-18); Bicarbonate 24 mEq/L (21-32); Bilirubin Direct 0.4 mg/dL (0-0.2); Bilirubin Indirect, Calculated 0.8 mg/dL (0.2-0.8); Bilirubin Total 1.2 mg/dL (0.2-1.0); Globulin 3.5 g/dL (2.3-3.5); Glomerular Filtration Rate 37 ml/min (=/>90); Glucose Level 240 mg/dL (74-106); NT PRO-BNP 14290 pg/mL (<450); Potassium 4.3 mEq/L (3.5-5.1); Protein, Total 6.6 g/dL (6.4-8.2); Sodium Level 135 mEq/L (136-145)
[2024-11-08 21:50] LABS: ALT/SGPT < 14 U/L (16-61)
[2024-11-08 21:51] LABS: Troponin High Sensitivity 84.8 pg/mL (<58.9)
--- NOTE | 2024-11-08 22:15 | ER ---
Nurse's Notes [facility] Name: Spenser Swartz Jr Age: 79 yrs Sex: Male : 1945 Arrival Date: 11/08/2024 Time: 20:26 Bed 16 Private MD: Diagnosis: Weakness;Elevated troponin Presentation: 11/08 20:27 Chief complaint: EMS states: family member called due to shortness of breath, altered ha1 mental status, and weakness. AO x 4. O2 98 in room air. 20:27 Coronavirus screen: Vaccine status: Patient reports being unvaccinated. Client denies ha1 travel out of the [place] in the last 14 days. Ebola Screen: No symptoms or risks identified at this time. Initial Sepsis Screen: Does the patient meet any 2 criteria? No. Patient's initial sepsis screen is negative. Does the patient have a suspected source of infection? No. Patient's initial sepsis screen is negative. Risk Assessment: Do you want to hurt yourself or someone else? Patient reports no desire to harm self or others. Onset of symptoms was November 08, 2024. 20:27 Method Of Arrival: EMS: [facility] ha1 20:27 Acuity: AMA 3 ha1 Triage Assessment: 20:27 General: Appears comfortable, Behavior is cooperative. Pain: Complains of pain in left ha1 shoulder Pain does not radiate. Pain currently is 8 out of 10 on a pain scale. Quality of pain is described as aching, Pain began years ago. Is chronic, Alleviated by rest, Aggravated by repositioning. Neuro: Level of Consciousness is awake, alert, obeys commands, Oriented to person, place, time, situation. Cardiovascular: Capillary refill < 3 seconds Patient's skin is warm and dry. Respiratory: Airway is patent Respiratory effort is even, unlabored, Respiratory pattern is regular, symmetrical. GI: Abdomen is round non-distended, obese. : Urine is clear. Derm: Skin is pink, warm \T\ dry. Musculoskeletal: Circulation, motion, and sensation intact. Historical: - Allergies: 20:27 PENICILLINS; ha1 20:27 Codeine; ha1 - PMHx: 20:27 Parkinson's disease; Hypertensive disorder; Congestive heart failure; Atrial ha1 fibrillation; Anemia; - PSHx: 20:27 L shoulder rotator cuff; triple bypass; achilles tendon SX; ha1 - Immunization history:: Adult Immunizations not up to date. - Infectious Disease History:: Denies. - Social history:: Smoking status: Patient denies any tobacco usage or history of. Screenin:42 [facility] ED Fall Risk Assessment (Adult) History of falling in the last 3 months, ha1 including since admission Yes- single mechanical fall (1 pt) Confusion or Disorientation No (0 pts) Intoxicated or Sedated No (0 pts) Impaired Gait Yes (1 pt) Mobility Assist Device Used Yes (1 pt) Altered Elimination No (0 pt) Score/Fall Risk Level 3 or more points = High Risk Oriented to surroundings, Maintained a safe environment, Educated pt \T\ family on fall prevention, incl call for assistance when getting out of bed, Hourly rounding (assess needs \T\ fall precautionary measures) done. Abuse screen: Denies threats or abuse. Denies injuries from another. Nutritional screening: No deficits noted. Tuberculosis screening: No symptoms or risk factors identified. Assessment: 21:40 Reassessment: Patient and/or family updated on plan of care and expected duration. Pain ha1 level reassessed. Patient is alert, oriented x 3, equal unlabored respirations, skin warm/dry/pink. 22:25 Reassessment: Patient and/or family updated on plan of care and expected duration. Pain ha1 level reassessed. Patient is alert, oriented x 3, equal unlabored respirations, skin warm/dry/pink. Vital Signs: 20:27 BP 144 / 69; Pulse 70; Resp 19 S; Temp 98.5(O); Pulse Ox 96% on R/A; Weight 87 kg; ha1 Height 5 ft. 7 in. ; 21:21 BP 114 / 61; Pulse 70; Resp 16; Pulse Ox 97% on R/A; dd2 21:40 BP 133 / 69; Pulse 69; Resp 17 S; Pulse Ox 98% on R/A; ha1 22:25 BP 129 / 66; Pulse 69; Resp 17 S; Pulse Ox 98% on R/A; ha1 20:27 Body Mass Index 30.04 (87.00 kg, 170.18 cm) ha1 [place] Coma Score: 21:21 Eye Response: spontaneous(4). Motor Response: obeys commands(6). Verbal Response: dd2 oriented(5). Total: 15. ED Course: 20:26 Patient arrived in ED. [email or web address] 20:27 Patient has correct armband on for positive identification. Placed in gown. Bed in low ha1 position. Call light in reach. Side rails up X2. 20:29 Margie Stephen PA-C is PHCP. sb4 20:29 Burak Borden MD is Attending Physician. sb4 20:37 Triage completed. ha1 20:38 MARINO BUSH, RN is Primary Nurse. dd2 21:07 Inserted saline lock: 20 gauge in right forearm, using aseptic technique. Blood mm11 collected. Flushed with 10 mL NS. 21:07 Flu Sent. mm11 21:07 SARS RAPID Sent. mm11 21:07 Troponin High Sensitivity Sent. mm11 21:07 BNP Sent. mm11 21:08 ETOH Level Sent. mm11 21:08 Acetaminophen Sent. mm11 21:08 Basic Metabolic Panel Sent. mm11 21:08 CBC with Diff Sent. mm11 21:08 Hepatic Function Sent. mm11 21:08 PT-INR Sent. mm11 21:08 Ptt, Activated Sent. mm11 21:08 Salicylate Sent. mm11 21:08 Urinalysis w/ reflexes Sent. mm11 21:08 Urine Drug Screen Sent. mm11 21:21 Client placed on continuous cardiac and pulse oximetry monitoring. NIBP monitoring dd2 applied. Door closed. Noise minimized. Warm blanket given. Pillow given. Verbal reassurance given. 21:21 No provider procedures requiring assistance completed. Initial lab(s) drawn, by ED dd2 staff, sent to lab. Urine collected: clean catch specimen, cloudy, EKG done, by ED staff, reviewed by Margie Stephen PA-C. Patient maintains SpO2 saturation greater than 95% on room air. 22:14 Juanjo Renee MD is Hospitalizing Provider. sb4 22:30 RSV Sent. dd2 22:37 Chest Single View XRAY In Process Unspecified. EDMS 22:54 Provided Education on: need for admit . ha1 22:54 Patient admitted, IV remains in place. ha1 22:55 Arm band placed on right wrist. ha1 11/09 07:14 Primary Nurse role handed off by MARINO BUSH, LYDIA bd Administered Medications: No medications were administered Medication: 11/08 20:43 VIS not applicable for this client. ha1 Outcome: 22:15 Decision to Hospitalize by Provider. sb4 22:54 Admitted to ER Hold. Please see [facility] for further documentation. ha1 22:54 Condition: stable 22:54 Instructed on the need for admit, Demonstrated understanding of instructions, 11/09 08:02 Patient left the ED. ld1 Signatures: Dispatcher [employer] EDMS Angie Yu Lauren RN RN ld1 Cynthia Longj6 Lili Loaiza RN RN ha1 Margie Stephen PA-C PARoopa sb4 MARINO BUSH RN RN dd2 crissy diaz mm11 Corrections: (The following items were deleted from the chart) 11/08 20:40 20:27 Allergies: Codeine; ha1 ha1 20:40 20:27 Allergies: PENICILLINS; ha1 ha1 20:40 20:27 PMHx: Atrial Fib; ha1 ha1 20:40 20:27 PMHx: Diabetes - NIDDM; ha1 ha1 20:40 20:27 PMHx: Hypertension; ha1 ha1 20:40 20:27 PMHx: Parkinson's disease; ha1 ha1 20:40 20:27 PSHx: achilles tendon SX; ha1 ha1 20:40 20:27 PSHx: achilles tendon SX; ha1 ha1 20:40 20:27 PSHx: achilles tendon SX; ha1 ha1
--- NOTE | 2024-11-08 22:15 | EDPHYS ---
Physician Documentation [facility] [place] [place] Name: Spenser Swartz Jr Age: 79 yrs Sex: Male : 1945 Arrival Date: 11/08/2024 Time: 20:26 Bed 16 Private MD: ED Physician Burak Borden HPI: 11/08 20:29 This 79 yrs old Male presents to ER via Unassigned with complaints of General Weakness. sb4 22:12 Patient states that he has been sick with cough and congestion for the past few days sb4 and has been weaker than usual. His home health nurse called EMS because he seemed more confused and short of breath than his baseline. Son states that he has not able to get around the house like he normally does and is concerned about that. Patient states that he feels generally ill but has no other complaints. Denies any chest pain, nausea, vomiting, diarrhea, abdominal pain, urinary symptoms. Historical: - Allergies: 20:27 PENICILLINS; ha1 20:27 Codeine; ha1 - PMHx: 20:27 Parkinson's disease; Hypertensive disorder; Congestive heart failure; Atrial ha1 fibrillation; Anemia; - PSHx: 20:27 L shoulder rotator cuff; triple bypass; achilles tendon SX; ha1 - Immunization history:: Adult Immunizations not up to date. - Infectious Disease History:: Denies. - Social history:: Smoking status: Patient denies any tobacco usage or history of. ROS: 22:12 Cardiovascular: Negative for chest pain, palpitations, and edema, sb4 22:12 Constitutional: Positive for malaise, 22:12 Respiratory: Positive for cough, chest congestion, 22:12 All other systems are negative, Exam: 22:12 Head/Face: Normocephalic, atraumatic. Eyes: Extra-ocular motions intact. Periorbital sb4 areas with no swelling, redness, or edema. ENT: Mucous membranes moist. Cardiovascular: Regular rate and rhythm with a normal S1 and S2. Respiratory: No increased work of breathing, no retractions or nasal flaring. Abdomen/GI: Soft, non-tender, no distension. Skin: Warm, dry with normal turgor. Normal color with no rashes, no lesions, and no evidence of cellulitis. 22:12 Constitutional: The patient appears in no acute distress, alert, awake, Vital Signs: 20:27 BP 144 / 69; Pulse 70; Resp 19 S; Temp 98.5(O); Pulse Ox 96% on R/A; Weight 87 kg; ha1 Height 5 ft. 7 in. ; 21:21 BP 114 / 61; Pulse 70; Resp 16; Pulse Ox 97% on R/A; dd2 21:40 BP 133 / 69; Pulse 69; Resp 17 S; Pulse Ox 98% on R/A; ha1 22:25 BP 129 / 66; Pulse 69; Resp 17 S; Pulse Ox 98% on R/A; ha1 20:27 Body Mass Index 30.04 (87.00 kg, 170.18 cm) ha1 [place] Coma Score: 21:21 Eye Response: spontaneous(4). Motor Response: obeys commands(6). Verbal Response: dd2 oriented(5). Total: 15. MDM: 20:29 Medical Screening Exam initiated sb4 22:13 Data reviewed: vital signs, nurses notes, EMS record, lab test result(s), EKG, sb4 radiologic studies, and as a result, I will admit patient. Consideration of Admission/Observation Patient was admitted/placed on observation. Care significantly affected by the following chronic conditions: Hypertension, Congestive Heart Failure. Counseling: I had a detailed discussion with the patient and/or guardian regarding the historical points, exam findings, and any diagnostic results supporting the discharge/admit diagnosis, lab results, radiology results, the need for further work-up and treatment in the hospital. 11/08 20:30 Order name: Acetaminophen; Complete Time: 21:54 [facility] 11/08 20:30 Order name: Basic Metabolic Panel; Complete Time: 21:54 4 11/08 20:30 Order name: CBC with Diff; Complete Time: 22:56 4 11/08 20:30 Order name: ETOH Level; Complete Time: 21:32 sb4 11/08 20:30 Order name: Hepatic Function; Complete Time: 21:54 4 11/08 20:30 Order name: PT-INR; Complete Time: 21:51 sb4 11/08 20:30 Order name: Ptt, Activated; Complete Time: 21:51 4 11/08 20:30 Order name: Salicylate; Complete Time: 21:32 4 11/08 20:30 Order name: Urinalysis w/ reflexes; Complete Time: 21:32 sb4 11/08 20:30 Order name: Urine Drug Screen; Complete Time: 21:32 sb4 11/08 20:30 Order name: BNP; Complete Time: 21:54 sb4 11/08 20:30 Order name: Troponin High Sensitivity; Complete Time: 21:54 sb4 11/08 20:30 Order name: SARS RAPID; Complete Time: 21:20 sb4 11/08 20:30 Order name: Flu; Complete Time: 21:22 sb4 11/08 21:27 Order name: Manual Differential; Complete Time: 22:56 EDMS 11/08 22:15 Order name: RSV; Complete Time: 23:08 sb4 11/08 22:46 Order name: Urinalysis w/ reflexes EDWI 11/08 22:46 Order name: CBC with Automated Diff EDMS 11/08 22:46 Order name: CBC with Automated Diff EDMS 11/08 22:46 Order name: Comprehensive Metabolic Panel EDWI 11/08 22:46 Order name: Comprehensive Metabolic Panel EDWI 11/08 22:46 Order name: Troponin High Sensitivity EDWI 11/08 22:46 Order name: Troponin High Sensitivity; Complete Time: 00:39 EDMS 11/08 22:46 Order name: Troponin High Sensitivity EDWI 11/08 22:46 Order name: Troponin High Sensitivity EDWI 11/08 21:26 Order name: Chest Single View XRAY; Complete Time: 22:51 sb4 11/08 22:46 Order name: CONS Physician Consult EDWI 11/08 20:30 Order name: EKG - Nurse/Tech; Complete Time: 21:20 sb4 11/08 20:30 Order name: IV Saline Lock; Complete Time: 21:09 sb4 11/08 20:30 Order name: Labs collected and sent; Complete Time: 21:09 sb4 EC:22 Rate is 74 beats/min. Rhythm is irregular, Paced. QRS interval is normal at 190 msec. sb4 QT interval is normal at 452 msec. No Q waves. T waves are Normal. No ST changes noted. Clinical impression: No evidence of ischemia. Interpreted by me. Reviewed by me. Administered Medications: No medications were administered Disposition: 11/09 02:15 Co-signature as Attending Physician, Burak Borden MD I agree with the assessment sp4 and plan of care. I reviewed the patient's care provided by Advanced Practice Provider \T\ agree w/ the diagnosis \T\ care plan. I personally saw the pt \T\ performed a substantive portion of the visit, incldng all aspects of the (History/Exam/Medical Decision Making). Disposition Summary: 11/08/24 22:15 Hospitalization Ordered Notes: Hospitalization Status: Observation sb4 Provider: Juanjo Renee sb4 Condition: Fair sb4 Problem: new sb4 Symptoms: are unchanged sb4 Bed/Room Type: Standard sb4 Location: Telemetry/MedSurg (observation)(11/09/24 07:28) bd Room Assignment: 409(11/09/24 07:28) bd Diagnosis - Weakness sb4 - Elevated troponin sb4 Forms: - Medication Reconciliation Form sb4 - SBAR form sb4 - Leadership Thank You Letter sb4 Signatures: Dispatcher [employer] EDMS Angie Yu Vanessa, RN RN vc1 Lili Loaiza RN RN ha1 Margie Stephen PA-C PARoopa sb4 Burak Borden MD MD sp4 Corrections: (The following items were deleted from the chart) 11/08 20:30 20:30 ACETAMINOPHEN+C.LAB.BRZ ordered. EDMS EDMS 20:30 20:30 BASIC METABOLIC PANEL+C.LAB.BRZ ordered. EDMS EDMS 20:30 20:30 CBC+H.LAB.BRZ ordered. EDMS EDMS 20:30 20:30 ETHANOL+C.LAB.BRZ ordered. EDMS EDMS 20:30 20:30 HEPATIC FUNCTION+C.LAB.BRZ ordered. EDMS EDMS 20:30 20:30 PROTIME (+INR)+COAG.LAB.BRZ ordered. EDMS EDMS 20:30 20:30 PTT, ACTIVATED+COAG.LAB.BRZ ordered. EDMS EDMS 20:31 20:30 SALICYLATE+C.LAB.BRZ ordered. EDMS EDMS 20:31 20:30 Urinalysis+U.LAB.BRZ ordered. EDMS EDMS 20:31 20:30 URINE DRUG SCREEN+UC.LAB.BRZ ordered. EDMS EDMS 20:31 20:31 PROBNP+C.LAB.BRZ ordered. EDMS EDMS 20:31 20:31 Troponin High Sensitivity+C.LAB.BRZ ordered. EDMS EDMS 20:31 20:31 SARS-COV-2 Antigen Rapid+I.LAB.BRZ ordered. EDMS EDMS 20:31 20:31 Influenza Screen (A \T\ B)+BA.LAB.BRZ ordered. EDMS EDMS 20:40 20:27 Allergies: Codeine; ha1 ha1 20:40 20:27 Allergies: PENICILLINS; ha1 ha1 20:40 20:27 PMHx: Atrial Fib; ha1 ha1 20:40 20:27 PMHx: Diabetes - NIDDM; ha1 ha1 20:40 20:27 PMHx: Hypertension; ha1 ha1 20:40 20:27 PMHx: Parkinson's disease; ha1 ha1 20:40 20:27 PSHx: achilles tendon SX; ha1 ha1 20:40 20:27 PSHx: achilles tendon SX; ha1 ha1 20:40 20:27 PSHx: achilles tendon SX; ha1 ha1 22:37 22:15 Telemetry/MedSurg (observation) sb4 vc1 22:37 22:15 sb4 vc1 11/09 07:28 11/08 22:37 [facility] ER HOLD vc1 bd 11/09 07:11/08 22:37 ERHOLD- vc1 bd
--- NOTE | 2024-11-08 22:39 | P.HP ---
Certification for Inpatient Patient admitted to: Inpatient With expected LOS: >2 Midnights Practitioner: I am a practitioner with admitting privileges, knowledge of patient current condition, hospital course, and medical plan of care. Services: Services provided to patient in accordance with Admission requirements found in Title 42 Section 412.3 of the Code of Federal Regulations Patient History Date of Service: 11/09/24 Reason for admission: Cough, congestion, generalized weakness History of Present Illness: 79 yrs old Male with past medical history of Parkinson's disease, hypertension, CHF, atrial fibrillation status post pacemaker, anemia, CAD status post CABG, who came to ER with generalized weakness. Patient states that he has been sick with cough and congestion for the past few days and has been weaker than usual. His home health nurse called EMS because he seemed more confused and short of breath than his baseline.Denies any chest pain or shortness of breath. Denies any nausea or vomiting Denies any dysuria Patient was assessed in the ER and noted to have leukocytosis, hyponatremia, elevated troponin and acute kidney injury and was admitted for further management Allergies codeine Allergy (Verified 09/17/23 09:11) Itching metformin Allergy (Verified 06/06/24 06:13) Hives/Rash Penicillins Allergy (Verified 09/17/23 09:11) Rash Home medications list reviewed: Yes Home Medications: Atorvastatin Calcium [Lipitor] 40 mg PO DAILY 06/05/24 Carbidopa/Levodopa 25-100 [Sinemet 25-100*] 1 tab PO TID 06/05/24 Ferrous Sulfate [Ferrous Sulfate*] 325 mg PO DAILY 06/05/24 Levothyroxine Sodium 25 mcg PO DAILY 06/05/24 Lisinopril [Zestril] 10 mg PO DAILY 06/05/24 Metformin HCl [Glucophage*] 500 mg PO DAILY WITH BREAKFAST 06/05/24 Metoprolol Succinate [Toprol Xl*] 25 mg PO BID 06/05/24 Pramipexole Di-HCl [Pramipexole Dihydrochloride] 1 mg PO TID 06/05/24 Spironolactone [Aldactone*] 25 mg PO DAILY 06/05/24 - Past Medical/Surgical History Diabetic: Yes Past Medical History: Reviewed- Non-Contributory -: Hypertension 2007 -: 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 -: Chronic atrial fibrillation A-fib status post ICD October 2022 -: Coronary artery disease status post CABG 2014 -: parkinsons -: CKD III/IV normal-sized kidney 10.2/10.6 nephrotic range proteinuria/diabet -: CHF -: Parkinson disease -: COPD exacerbationMonitor closely on telemetryStarted on bronchodilators Past Surgical History: Reviewed- Non-Contributory -: CABG -: Rotator cuff surgery Psychosocial/ Personal History: Patient lives at home with his - Family History Sister -: Diabetes Father -: Lung disease Notes: emphysema - Social History Smoking Status: Former smoker Alcohol use: No CD- Drugs: No Caffeine use: Yes Review of Systems 10-point ROS is otherwise unremarkable Physical Examination - Vital Signs Temperature: 98.2 F Blood Pressure: 132/78 Pulse: 82 Respirations: 18 Pulse Ox (%): 94 - Physical Exam General: Alert, In no apparent distress, Oriented x2 HEENT: Atraumatic, Normocephalic Neck: Supple, 2+ carotid pulse no bruit Respiratory: Normal air movement, Crackles/rales Cardiovascular: Normal pulses, Regular rate/rhythm Capillary refill: <2 Seconds Gastrointestinal: Soft and benign, W/out hepatosplenomegaly Musculoskeletal: No clubbing Integumentary: No rashes, No breakdown Neurological: Other (Alert, Awake ) Lymphatics: No axilla or inguinal lymphadenopathy - Studies Laboratory Data (last 24 hrs) 11/08/24 11/08/24 11/08/24 20:50 20:50 20:50 WBC 11.80 H Hgb 9.9 L Hct 30.8 L Plt Count 202 PT 15.5 H INR 1.48 APTT 31.9 Sodium 135 L Potassium 4.3 BUN 48 H Creatinine 1.81 H Glucose 240 H Total Bilirubin 1.2 H AST 14 L ALT < 14 L Alkaline Phosphatase 149 H Microbiology Data (last 24 hrs): 11/08/24 20:53 Nasopharnyx Influenza Type A Antigen Screen - Final 11/08/24 20:53 Nasopharnyx Influenza Type B Antigen Screen - Final Assessment and Plan - Plan NSTEMI Has a h/o CAD Will trend cardiac enzymes Will monitor telemetry Started on aspirin and statin Patient denies any chest pain Cardiology consult Bronchitis Started on antibiotic empirically Will add on Zithromax Acute on chronic CHF possibly systolic/diastolic Monitor closely on telemetry Started on diuresis X-ray findings consistent with CHF Oxygen supplementation as needed Will try to wean down oxygen requirement Continue home medications Titrate as needed Will obtain an echocardiogram Cardiology consult Hypertension Antihypertensives titrated Continue home medications and titrate as needed Hyperlipidemia Continue statin Acute Kidney Injury Monitor renal parameters Electrolytes monitor and replace accordingly Diabetes Insulin sliding scale Accu-Chek before every meal and at bedtime Anemia of chronic disease Monitor H&H closely No overt bleeding at this time GI/DVT prophylaxis Advanced directive full code Discharge Plan: Group Home Plan to discharge in: 48 Hours - Advance Directives Does patient have a Living Will: No Does patient have a Durable POA for Healthcare: No - Code Status/Comfort Care Code Status: Full Code Time Spent Managing Pts Care (In Minutes): 48
[2024-11-08] MEDS ORDERED: ONDANSETRON 4 MG/2 ML VIAL IV PRN (22:41)
[2024-11-08] MEDS ORDERED: ACETAMINOPHEN 325 MG TABLET PO PRN (22:41)
--- NOTE | 2024-11-08 22:50 | RAD REPORT ---
EXAMINATION: ONE VIEW CHEST XR CLINICAL INDICATION: Male, 79 years old.,DYSPNEA TECHNIQUE: Frontal chest projection is submitted. Examination is limited by patient positioning and t echnique. COMPARISON: 06/04/2024 FINDINGS: Central interstitial prominence. No focal airspace opacities. No pneumothorax or sizable effusion. Th e heart is upper limit of normal in size. Mediastinal contours are unchanged, with sequelae of CABG and left chest wall pacer placement.. IMPRESSION: Central interstitial prominence, suggesting central congestion or CHF.
[2024-11-08 22:52] LABS: Band Neutrophils 7 % (0-1); Blood Morphology Comment NOT SEEN (NOT SEEN); Differential Total Cells Count 100; Eosinophils 1 % (0-3); Lymphocytes 10 % (15-42); Monocytes 5 % (0-10); Platelet Estimate ADEQ; Segmented Neutrophils 77 % (40-80)
[2024-11-09] MEDS: ZOLPIDEM TARTRATE 10 MG TABLET PO ONE (01:38)
[2024-11-09] MEDS ORDERED: ZOLPIDEM TARTRATE 10 MG TABLET ONE (01:40)
[2024-11-09 01:53] VITALS: BMI 28.2
[2024-11-09] MEDS: HEPARIN 5000 UNIT/ML 1 ML VIAL SQ SCH (03:00)
[2024-11-09] MEDS ORDERED: HEPARIN 5000 UNIT/ML 1 ML VIAL ONE (03:06)
[2024-11-09] MEDS ORDERED: FUROSEMIDE 20 MG/ 2ML VIAL ONE (03:06)
[2024-11-09] MEDS: FUROSEMIDE 20 MG/ 2ML VIAL IV SCH (03:09)
[2024-11-09 05:14] LABS: Absolute Eosinophils 0.1 K/uL (0-0.5); Absolute Lymphocytes (CBC) 0.8 K/uL (0.7-4.9); Absolute Monocytes 0.7 K/uL (0.1-1.3); Absolute Neutrophil 8.2 K/uL (1.8-8.0); Basophils % 0.3 % (0-1.3); Eosinophils % 0.5 % (0-4.4); Hematocrit 28.9 % (39.6-49.0); Hemoglobin 9.5 g/dL (13.6-17.9); MCHC 32.8 g/dL (32.0-36.0); MCV 79.4 fL (80-100); MPV 7.6 fL (7.6-11.3); Monocytes % 7.1 % (3.3-12.3); Neutrophils % 84.1 % (41.7-73.7); Platelets 201 thou/uL (152-406); RBC Red Blood Cell Count 3.64 M/uL (4.33-5.43)
[2024-11-09] MEDS: LEVOTHYROXINE SOD 0.025 MG TAB PO SCH (06:00)
[2024-11-09 06:10] LABS: AST/SGOT 15 U/L (15-37); Albumin 2.9 g/dL (3.4-5.0); Albumin/Globulin Ratio 0.9 (1.1-1.8); Alkaline Phosphatase 106 U/L (45-117); Anion Gap 11.8 mEq/L (5.0-15.0); BUN Blood Urea Nitrogen 50 mg/dL (7-18); Bicarbonate 23 mEq/L (21-32); Bilirubin Total 1.2 mg/dL (0.2-1.0); Globulin 3.2 g/dL (2.3-3.5); Glomerular Filtration Rate 8 ml/min (=/>90); Glucose Level 171 mg/dL (74-106); Potassium 3.8 mEq/L (3.5-5.1); Protein, Total 6.1 g/dL (6.4-8.2); Sodium Level 135 mEq/L (136-145)
[2024-11-09 06:13] LABS: ALT/SGPT < 14 U/L (16-61)
[2024-11-09] MEDS: FLU (Fluarix Triv) TS24-25(6MOS UP)/PF 45 MCG/0.5 ML Syringe IM ONE (07:45)
[2024-11-09] MEDS ORDERED: PNEUMOCOCCAL VACCINE 0.5 ML IMVAC ONE (08:00)
[2024-11-09] MEDS: PRAMIPEXOLE 1 MG TAB PO SCH (09:08)
[2024-11-09] MEDS: CEFTRIAXONE 1,000 MG in NA CHLORIDE 0.9% 50 ML IVPB SCH (09:08)
[2024-11-09] MEDS: AZITHROMYCIN 250 MG TAB PO SCH (09:09)
[2024-11-09] MEDS: METOPROLOL XL 25 MG TAB PO SCH (09:10)
[2024-11-09] MEDS: ATORVASTATIN 40 MG TAB PO SCH (09:10)
[2024-11-09] MEDS: CARBIDOPA/LEVODOPA 25/100 TAB PO SCH (09:10)
[2024-11-09] MEDS: lisinopriL 10 MG TAB PO SCH (09:10)
[2024-11-09] MEDS: METFORMIN HCL 500 MG TAB PO SCH (09:10)
[2024-11-09 12:22] LABS: Absolute Lymphocytes (CBC) 0.5 K/uL (0.7-4.9); Absolute Monocytes 0.6 K/uL (0.1-1.3); Absolute Neutrophil 9.7 K/uL (1.8-8.0); Basophils % 0.3 % (0-1.3); Eosinophils % 0.1 % (0-4.4); Hemoglobin 10.9 g/dL (13.6-17.9); Lymphocytes % 4.8 % (15.3-44.8); MCH 25.5 pg (27.0-35.0); MCV 79.6 fL (80-100); MPV 7.6 fL (7.6-11.3); Monocytes % 5.8 % (3.3-12.3); Nucleated Red Blood Cells % 0.1 % (0-0); Platelets 233 thou/uL (152-406); RBC Red Blood Cell Count 4.27 M/uL (4.33-5.43); Red Cell Distribution Width 19.7 % (12.1-15.2)
--- NOTE | 2024-11-09 12:27 | P.CNS ---
Date of Consult: 11/09/24 Chief Complaint: Cough, congestion, generalized weakness History of Present Illness: Patient with PMH of CAD s/p CABG, heart failure reduced EF, pacemaker, presented with generalized weakness, AMS, patient is sleepy and hard to arouse, but he denies chest pain, no palpitations, no GONZALEZ, no syncope. Allergies codeine Allergy (Verified 09/17/23 09:11) Itching metformin Allergy (Verified 06/06/24 06:13) Hives/Rash Penicillins Allergy (Verified 09/17/23 09:11) Rash Home medications list reviewed: Yes Home Medications: Atorvastatin Calcium [Lipitor] 40 mg PO DAILY 06/05/24 Carbidopa/Levodopa 25-100 [Sinemet 25-100*] 1 tab PO TID 06/05/24 Ferrous Sulfate [Ferrous Sulfate*] 325 mg PO DAILY 06/05/24 Levothyroxine Sodium 25 mcg PO DAILY 06/05/24 Lisinopril [Zestril] 10 mg PO DAILY 06/05/24 Metformin HCl [Glucophage*] 500 mg PO DAILY WITH BREAKFAST 06/05/24 Metoprolol Succinate [Toprol Xl*] 25 mg PO BID 06/05/24 Pramipexole Di-HCl [Pramipexole Dihydrochloride] 1 mg PO TID 06/05/24 Spironolactone [Aldactone*] 25 mg PO DAILY 06/05/24 - Past Medical/Surgical History Diabetic: Yes -: Hypertension 2007 -: 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 -: Chronic atrial fibrillation A-fib status post ICD October 2022 -: Coronary artery disease status post CABG 2014 -: parkinsons -: CKD III/IV normal-sized kidney 10.2/10.6 nephrotic range proteinuria/diabet -: CHF -: Parkinson disease -: COPD exacerbationMonitor closely on telemetryStarted on bronchodilators -: CABG -: Rotator cuff surgery Psychosocial/ Personal History: Patient lives at home with his - Family History Sister Medical History: Diabetes Father Medical History: Lung disease Notes: emphysema - Social History Smoking Status: Former smoker Alcohol use: No CD- Drugs: No Caffeine use: Yes Review of Systems 10-point ROS is otherwise unremarkable Physical Examination Temp Pulse Resp BP Pulse Ox 98.5 F 68 20 137/58 L 98 11/09/24 08:00 11/09/24 09:11 11/09/24 08:00 11/09/24 09:11 11/09/24 08:00 General: Alert, In no apparent distress HEENT: Atraumatic, PERRLA, Mucous membr. moist/pink, EOMI, Sclerae nonicteric Neck: Supple, 2+ carotid pulse no bruit, No LAD, Without JVD or thyroid abnormality Respiratory: Clear to auscultation bilaterally, Normal air movement Cardiovascular: Regular rate/rhythm, Normal S1 S2 Gastrointestinal: Normal bowel sounds, No tenderness Musculoskeletal: No tenderness Integumentary: No rashes Neurological: Normal gait, Normal speech, Normal tone, Normal affect Lymphatics: No axilla or inguinal lymphadenopathy Laboratory Data (last 24 hrs) 11/08/24 11/08/24 11/08/24 20:50 20:50 20:50 WBC 11.80 H Hgb 9.9 L Hct 30.8 L Plt Count 202 PT 15.5 H INR 1.48 APTT 31.9 Sodium 135 L Potassium 4.3 BUN 48 H Creatinine 1.81 H Glucose 240 H Total Bilirubin 1.2 H AST 14 L ALT < 14 L Alkaline Phosphatase 149 H - Problems (1) NSTEMI (non-ST elevated myocardial infarction) Current Visit: Yes Status: Acute Plan: Patient with PMH of CAD s/p CABG, recent coronary angiogram shows patent OBREGON- LAD and SVG-RPDA. patient enzymes leak is mild and trended back to normal, most likely type 2 SD from KRISTI. continue ASA 81 mg daily continue Lipitor 40 mg daily
[2024-11-09 12:40] LABS: AST/SGOT 17 U/L (15-37); Albumin 3.2 g/dL (3.4-5.0); Albumin/Globulin Ratio 0.8 (1.1-1.8); Alkaline Phosphatase 147 U/L (45-117); Anion Gap 13.6 mEq/L (5.0-15.0); BUN Blood Urea Nitrogen 45 mg/dL (7-18); Bicarbonate 23 mEq/L (21-32); Bilirubin Total 1.2 mg/dL (0.2-1.0); Glomerular Filtration Rate 37 ml/min (=/>90); Glucose Level 212 mg/dL (74-106); Potassium 3.6 mEq/L (3.5-5.1); Protein, Total 7.2 g/dL (6.4-8.2); Sodium Level 134 mEq/L (136-145)
[2024-11-09 12:42] LABS: ALT/SGPT < 14 U/L (16-61)
[2024-11-09 13:01] LABS: Specific Gravity 1.008 (1.005-1.030); Sqamous Epithelial <5 /HPF (None Seen); Urine Bacteria None Seen /HPF (<20); Urine Bilirubin NEGATIVE (Negative); Urine Blood Negative (Negative); Urine Clarity Turbid (Clear); Urine Color Colorless (Yellow); Urine Culture Reflex Order NOT NEEDED; Urine Glucose 3+ (Negative); Urine Ketones NEGATIVE (Negative); Urine Microscopic Reflex YN ORDER UMIC; Urine Nitrite NEGATIVE (Negative); Urine Protein NEGATIVE (Negative); Urine RBC <5 /HPF (None Seen); Urine Urobilinogen Normal (Normal); Urine WBC <5 /HPF (<5)
[2024-11-09] MEDS: POTASSIUM 25 MEQ EFFERV TAB PO ONE (13:48)
--- NOTE | 2024-11-10 00:44 | CON ---
Date of Consultation: 11/09/2024 Chief Complaint: Acute kidney injury. History Of Present Illness: The patient is admitted to the hospital because of cough, congestion, ge neralized weakness. He is 79-year-old man with past medical history of hypertension, congestive hear t failure with diastolic dysfunction, atrial fibrillation, Parkinson disease, history of coronary art giovana disease, status post CABG, chronic anemia. The patient came into the emergency room because of g eneralized weakness, severe fatigue, and shortness of breath. The patient was found to have fluid ov erload. He was complaining of congestion in his chest and productive cough for at least a few days p rior to this admission. The patient was transferred to emergency room because his home health nurse found him to be more confused and short of breath. He denies chest pain, and he denies nausea, vomit ing. Denies dysuria, hematuria. ER workup showed leukocytosis, hyponatremia, elevated troponin and elevated creatinine and BUN level. The patient is admitted to the hospital. Nephrology is consulted for acute kidney injury. The patient has history of hypothyroid, hypertension, diabetes mellitus, a nd congestive heart failure. He was taking multiple medication including metformin, lisinopril, spir onolactone, metoprolol, atorvastatin, and levothyroxine. Past Medical History: Hypertension, diabetes mellitus complicated with neuropathy, chronic atrial fi brillation, status post ICD October 2022, coronary artery disease, status post CABG 2014, Parkinson d isease, CKD 3/4, normal-sized kidneys, nephrotic range proteinuria, diabetic kidney disease, congesti ve heart failure, COPD on bronchodilators. Past Surgical History: CABG, Family History: Sister, diabetes mellitus. Father, lung disease. Social History: He is a former smoker. Denies alcohol. Denies caffeine and drugs. Review of Systems: General: Complains of shortness of breath with activities. Denies PND, orthopnea. Eyes: Denies vision changes. Ears, Nose, Mouth, And Throat: Denies sore throat or earache. Respiratory: Shortness of breath and productive cough. Congestion is in his chest. GI: Denies nausea, vomiting. : Denies dysuria, hematuria. All other systems reviewed and all are negative. Physical Examination: General: The patient is alert, oriented x2. HEENT: Atraumatic, normocephalic. Neck: Supple. Respiratory: Normal air movement. Crackles and rales present bilaterally. Heart: S1, S2. No pericardial friction rub. Abdomen: Soft, benign, nontender. Extremities: Slight edema. Skin: Warm and dry. No skin rashes. Laboratory Data: Hemoglobin is 9.9, WBC 11.8, platelet count 202,000. Sodium 135, potassium 4.3, BU N 48, creatinine 1.81, glucose 240, total bilirubin 1.2, ALT 149. Impression And Plan: 1.Non-ST elevation myocardial infarction. History of coronary artery disease. 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 Acute kidney injury is due to cardio renal syndrome. The patient has acute on chronic congestive heart failure with systolic and diastoli c dysfunction. Continue low-sodium diet. Advance diuretic for volume control and congestive heart f ailure. 2.Diabetes mellitus. The patient cannot take metformin due to risk of lactic acidosis secondary to metformin. The patient has history of congestive heart failure and chronic kidney disease. He canno t take metformin due to multiple risk of precipitation of lactic acidosis by medication. 3.Continue to adjust blood pressure medication and continue low-sodium diet for congestive heart jovany lure. Adjust blood pressure medication. SHAHBAZ inhibitor is on hold due to acute kidney injury. The p atient may benefit from beta zhao for congestive heart failure. 4.Diabetes mellitus with proteinuria. Re-evaluate urine protein-creatinine ratio. EB/MODL Voice ID: [id number] Report ID: [id number]
[2024-11-10 07:28] LABS: Anion Gap 10.6 mEq/L (5.0-15.0); Magnesium 2.1 mg/dL (1.6-2.4); Potassium 3.6 mEq/L (3.5-5.1)
[2024-11-10] MEDS: POTASSIUM 25 MEQ EFFERV TAB PO ONE (09:41)
[2024-11-10] MEDS: ALOGLIPTIN BENZOATE 12.5 MG TABLET PO SCH (13:35)
[2024-11-10] MEDS: predniSONE 20 MG TAB PO SCH (13:35)
--- NOTE | 2024-11-10 15:07 | RAD REPORT ---
EXAMINATION: US RETROPERITONEUM CLINICAL INDICATION: ckd TECHNIQUE: Real-time ultrasonography of the abdomen was performed. COMPARISON: 06/06/2024 FINDINGS: RIGHT KIDNEY: Right renal length measurement: 10.9 cm. Normal in echogenicity and size. No calculus, solid mass or hydronephrosis. Benign right lower pole renal cyst measuring 1.6 cm. LEFT KIDNEY: Left renal length measurement: 9.6 cm. Normal in echogenicity and size. No calculus, raymond id mass or hydronephrosis. ADDITIONAL FINDINGS: Underdistended bladder which is otherwise unremarkable. IMPRESSION: No hydronephrosis. Benign right lower pole renal cyst.
[2024-11-10] MEDS: GLIMEPIRIDE 2 MG TABLET PO SCH (16:56)
[2024-11-10] MEDS: NA CHLORIDE 0.9% 1,000 ML IV SCH (18:35)
[2024-11-10 23:49] VITALS: O2SAT 95
[2024-11-11 00:35] LABS: Specific Gravity 1.012 (1.005-1.030); Sqamous Epithelial <5 /HPF (None Seen); Urine Bacteria <20 /HPF (<20); Urine Bilirubin NEGATIVE (Negative); Urine Blood 3+ (OVER) (Negative); Urine Clarity Extremely Turbid (Clear); Urine Color Light-Yellow (Yellow); Urine Culture Reflex Order NOT NEEDED; Urine Glucose 2+ (Negative); Urine Ketones NEGATIVE (Negative); Urine Micro Reflex YN NO BILL MICROSCOPIC; Urine Mucus Slight /HPF (None Seen); Urine Nitrite NEGATIVE (Negative); Urine Protein TRACE (Negative); Urine RBC >50 /HPF (None Seen); Urine Urobilinogen Normal (Normal); Urine WBC <5 /HPF (<5)
[2024-11-11 07:01] LABS: Anion Gap 10.9 mEq/L (5.0-15.0); Magnesium 2.1 mg/dL (1.6-2.4); Potassium 3.9 mEq/L (3.5-5.1)
--- NOTE | 2024-11-11 08:36 | ECHO ---
HEIGHT: 5 ft 9 in WEIGHT: 191 lb 0 oz DATE OF STUDY: 11/09/[address]: Vito Renee DO 2-DIMENSIONAL: YES M.MODE: YES DOPPLER: YES COLOR FLOW: YES TDS: NO PORTABLE: YES DEFINITY: NO BUBBLE STUDY: NO DIAGNOSIS: CONGESTIVE HEART FAILURE CARDIAC HISTORY: CATHERIZATION: NO SURGERY: NO PROSTHETIC VALVE: NO PACEMAKER: YES MEASUREMENTS (cm) DIASTOLIC (NORMALS) SYSTOLIC (NORMALS) IVSd 1.1 (0.6-1.2) LA Diam 4.1 (1.9-4.0) LVEF 40-45% LVIDd 4.7 (3.5-5.7) LVIDs 3.2 (2.0-3.5) %FS 33% LVPWd 1.1 (0.6-1.2) Ao Diam 2.5 (2.0-3.7) 2 DIMENSIONAL ASSESSMENT: RIGHT ATRIUM: NORMAL LEFT ATRIUM: MILDLY DILATED RIGHT VENTRICLE: NORMAL LEFT VENTRICLE: NORMAL TRICUSPID VALVE: MILD TRICUSPID REGURGITATION MITRAL VALVE: MILD MITRAL REGURGITATION PULMONIC VALVE: NORMAL AORTIC VALVE: CALCIFIED PERICARDIAL EFFUSION: NONE AORTIC ROOT: NORMAL LEFT VENTRICULAR WALL MOTION: MILD GLOBAL HYPOKINESIS WITH APICAL AKINESIS. DOPPLER/COLOR FLOW: DIASTOLIC DYSFUNCTION. COMMENTS: 1. MILDLY REDUCED LEFT VENTRICULAR SYSTOLIC FUNCTION (EJECTION FRACTION 40-45%), APICAL HYPOKINESIS. 2. SEVERE AORTIC STENOSIS (AORTIC VALVE AREA 0.8 CENTIMETERS SQUARED, MEAN GRADIENT 38mmHg) 3. DIASTOLIC DYSFUNCTION 4. SEVERE PULMONARY HYPERTENSION (RIGHT VENTRICULAR SYSTOLIC PRESSURE GREATER THAN 60mmHg). 5. ELEVATED FILLING PRESSURE. TECHNOLOGIST: VENESSA ARCHER
[2024-11-11 13:02] VITALS: BP 113/61; TEMP 98.2
--- NOTE | 2024-11-12 13:05 | EKG ---
Test Date: 2024-11-08 Test Time: 21:17:47 Fast Brim Pouncer: SAGE MEASUREMENT RESULTS: Intervals: Rate: 74 SD: QRSD: 190 QT: 452 QTc: 501 [place]: P: SD: QRS: -83 T: 112 INTERPRETIVE STATEMENTS: Ventricular-paced rhythm with occasional premature ventricular complexes Abnormal ECG Compared to ECG 06/04/2024 15:18:25 Ventricular premature complex(es) now present Electronically Signed On 11-12-24 13:00:37 METAL ROASTER by Constantin Blount
== END 2024-11-11 14:04 | disposition home or self-care (01) | DRG 280 ==
LOC: ER 20:26 → ERHOLD 22:41 → 4TH 11-09 07:44
PROVIDERS: ADMIT Family Medicine; ATTEND Hospitalist
DX: I13.0 Hypertensive heart and chronic kidney disease with heart failure and stage 1 through stage 4 chronic kidney disease, or unspecified chronic kidney disease (principal); I50.23 Acute on chronic systolic (congestive) heart failure; I21.A1 Myocardial infarction type 2; E87.1 Hypo-osmolality and hyponatremia; N17.9 Acute kidney failure, unspecified; I48.20 Chronic atrial fibrillation, unspecified; N18.4 Chronic kidney disease, stage 4 (severe); E11.22 Type 2 diabetes mellitus with diabetic chronic kidney disease; E11.40 Type 2 diabetes mellitus with diabetic neuropathy, unspecified; D63.1 Anemia in chronic kidney disease; E78.5 Hyperlipidemia, unspecified; J40 Bronchitis, not specified as acute or chronic; G20.A1 Parkinson's disease without dyskinesia, without mention of fluctuations; I25.10 Atherosclerotic heart disease of native coronary artery without angina pectoris; R79.89 Other specified abnormal findings of blood chemistry; Z88.5 Allergy status to narcotic agent; Z88.0 Allergy status to penicillin; Z95.0 Presence of cardiac pacemaker; Z95.1 Presence of aortocoronary bypass graft; Z88.8 Allergy status to other drugs, medicaments and biological substances; Z79.890 Hormone replacement therapy; Z79.899 Other long term (current) drug therapy; Z87.891 Personal history of nicotine dependence; Z79.02 Long term (current) use of antithrombotics/antiplatelets; Z79.84 Long term (current) use of oral hypoglycemic drugs; Z11.52 Encounter for screening for COVID-19
CPT/HCPCS: 36415; 71045; 76770; 80048; 80053; 80076; 80143; 80179; 80307; 81001; 82077; 82947; 83735; 83880; 84484; 85025; 85610; 85730; 87804; 87807; 87811; 93005; 93306; 94760; 99285; J0696; J1644; J1940; J7030; J7512

== ENCOUNTER 2024-11-22 15:18 | Emergency (ER) | payer OTHER ==
[2024-11-22 16:18] LABS: Absolute Eosinophils 0.1 K/uL (0-0.5); Absolute Lymphocytes (CBC) 1.1 K/uL (0.7-4.9); Absolute Monocytes 0.6 K/uL (0.1-1.3); Absolute Neutrophil 10.1 K/uL (1.8-8.0); Basophils % 0.3 % (0-1.3); Hemoglobin 11.5 g/dL (13.6-17.9); Lymphocytes % 8.9 % (15.3-44.8); MCH 25.2 pg (27.0-35.0); MCHC 31.9 g/dL (32.0-36.0); MCV 78.9 fL (80-100); Monocytes % 5.3 % (3.3-12.3); Neutrophils % 84.5 % (41.7-73.7); Platelets 263 thou/uL (152-406); RBC Red Blood Cell Count 4.56 M/uL (4.33-5.43); Red Cell Distribution Width 19.6 % (12.1-15.2)
[2024-11-22 16:20] LABS: Specific Gravity 1.008 (1.005-1.030); Sqamous Epithelial None Seen /HPF (None Seen); Urine Bacteria None Seen /HPF (<20); Urine Bilirubin NEGATIVE (Negative); Urine Blood Negative (Negative); Urine Clarity Clear (Clear); Urine Color Colorless (Yellow); Urine Culture Reflex Order NOT NEEDED; Urine Glucose 4+ (Over) (Negative); Urine Ketones NEGATIVE (Negative); Urine Microscopic Reflex YN ORDER UMIC; Urine Mucus Slight /HPF (None Seen); Urine Nitrite NEGATIVE (Negative); Urine Protein NEGATIVE (Negative); Urine RBC None Seen /HPF (None Seen); Urine Urobilinogen Normal (Normal); Urine WBC None Seen /HPF (<5)
--- NOTE | 2024-11-22 16:23 | RAD REPORT ---
EXAM: Chest Single View HISTORY: DYSPNEA COMPARISON: 11/08/2024 FINDINGS: LUNGS/PLEURA: Similar prominence of the pulmonary vascular tree. No pleural effusions or pneumothorax . No pulmonary edema. MEDIASTINUM: The mediastinal silhouette is within normal limits. CARDIAC: Mild cardiomegaly UPPER ABDOMEN: No significant abnormality. BONES: No acute abnormality. Sternotomy. Soft tissue anchors in the left humeral head. LINES/TUBES/OTHER: Pacemaker present. IMPRESSION: Pulmonary vascular congestion without evidence of alveolar edema or consolidative airspace disease.
[2024-11-22 16:38] LABS: Potassium 4.4 mEq/L (3.5-5.1)
[2024-11-22 16:39] LABS: Albumin 3.2 g/dL (3.4-5.0); Albumin/Globulin Ratio 0.9 (1.1-1.8); Bilirubin Direct 0.3 mg/dL (0-0.2); Bilirubin Indirect, Calculated 0.5 mg/dL (0.2-0.8); Bilirubin Total 0.8 mg/dL (0.2-1.0); Globulin 3.6 g/dL (2.3-3.5); Protein, Total 6.8 g/dL (6.4-8.2)
--- NOTE | 2024-11-22 16:54 | RAD REPORT ---
EXAMINATION: CT HEAD WITHOUT CONTRAST CLINICAL INDICATION: Male, 79 years old.weakness, subacute head injury TECHNIQUE: Axial CT images from the skull base to the vertex without intravenous contrast. Coronal an d sagittal reformatted images were created from the data set. One or more of the following dose reduction techniques were used: Automated exposure control, adjustment of the mA and/or kV according to patient size, and/or iterative reconstruction. Unless otherwise specified, incidental findings do not require dedicated imaging follow-up. [id number]. COMPARISON: No prior exam. FINDINGS: INTRACRANIAL: No acute intracranial hemorrhage. No hydrocephalus. No mass effect or midline shift. Mi ld chronic small vessel ischemic changes.Age advanced cerebral atrophy. VASCULATURE: No visualized abnormalities in the arteries or dural venous sinuses. SCALP/SKULL: No significant soft tissue or osseous abnormalities. Prior right orbital floor repair. SINUSES: The visualized paranasal sinuses and mastoid air cells are predominantly clear. IMPRESSION: No acute intracranial abnormality.
[2024-11-22] MEDS ORDERED: NA CHLORIDE 0.9% 250 ML ONE (17:39)
[2024-11-22 17:51] LABS: Anion Gap 12.4 mEq/L (5.0-15.0)
--- NOTE | 2024-11-22 18:30 | ER ---
Nurse's Notes [facility] Name: Spenser Swartz Jr Age: 79 yrs Sex: Male : 1945 Arrival Date: 11/22/2024 Time: 15:18 Bed 4 Private MD: Diagnosis: Dehydration;Muscle weakness (generalized) Presentation: 11/22 15:21 Chief complaint: EMS states: GEN WEAKNESS x"DAYS", RECENT H/O PARKINSON'S DX. bp Coronavirus screen: At this time, the client does not indicate any symptoms associated with coronavirus-19. Ebola Screen: No symptoms or risks identified at this time. Initial Sepsis Screen: Does the patient meet any 2 criteria? No. Patient's initial sepsis screen is negative. Does the patient have a suspected source of infection? No. Patient's initial sepsis screen is negative. Risk Assessment: Do you want to hurt yourself or someone else? Patient reports no desire to harm self or others. Onset of symptoms is unknown. 15:21 Method Of Arrival: EMS: [facility] bp 15:21 Acuity: AMA 3 bp Triage Assessment: 15:22 General: Appears in no apparent distress. Behavior is calm, cooperative, appropriate bp for age. Pain: Denies pain. Historical: - Allergies: 15:22 Codeine; bp 15:22 PENICILLINS; bp - PMHx: 15:22 Anemia; Atrial fibrillation; Congestive heart failure; Hypertensive disorder; bp Parkinson's disease; - PSHx: 15:22 L shoulder rotator cuff; achilles tendon SX; triple bypass; bp - Immunization history:: Adult Immunizations up to date. - Infectious Disease History:: Denies. - Social history:: Smoking status: Patient denies any tobacco usage or history of. - Family history:: not pertinent. - Hospitalizations: : No recent hospitalization is reported. Screenin:30 [facility] ED Fall Risk Assessment (Adult) History of falling in the last 3 months, bp including since admission No falls in past 3 months (0 pts) Confusion or Disorientation No (0 pts) Intoxicated or Sedated No (0 pts) Impaired Gait No (0 pts) Mobility Assist Device Used No (0 pt) Altered Elimination No (0 pt) Score/Fall Risk Level 0 - 2 = Low Risk Oriented to surroundings. Abuse screen: Denies threats or abuse. Denies injuries from another. Nutritional screening: No deficits noted. Tuberculosis screening: No symptoms or risk factors identified. Assessment: 15:30 General: Appears in no apparent distress. Behavior is calm, cooperative, appropriate bp for age. 17:30 Reassessment: Patient appears in no apparent distress at this time. Patient is alert, bp oriented x 3, equal unlabored respirations, skin warm/dry/pink. Vital Signs: 15:21 BP 160 / 76; Pulse 70; Resp 15; Temp 98; Pulse Ox 98% ; bp 17:30 BP 140 / 69; Pulse 69; Resp 16; Pulse Ox 100% ; bp 17:58 BP 140 / 69; Pulse 70; Resp 18; Pulse Ox 100% on R/A; ld1 ED Course: 15:20 Patient arrived in ED. bp 15:22 Triage completed. bp 15:23 Moisés Irving MD is Attending Physician. rn 15:24 Arm band placed on. bp 15:26 Ronald Morel, LYDIA is Primary Nurse. bp 16:04 Initial lab(s) drawn, by ar, sent to lab. Urine collected: clean catch specimen, clear, bp EKG done, by ED staff, reviewed by Moisés Irving MD. Inserted saline lock: 22 gauge in left forearm, using aseptic technique. Blood collected. Flushed with 10 mL NS. 16:18 XRAY Chest (1 view) In Process Unspecified. EDMS 16:33 CT Head Brain wo Cont In Process Unspecified. EDMS 17:30 Patient has correct armband on for positive identification. bp 19:15 Provided Education on: D/C EDUCATION. dd2 19:15 No provider procedures requiring assistance completed. IV discontinued, intact, dd2 bleeding controlled, No redness/swelling at site. Pressure dressing applied. Administered Medications: 17:57 Drug: NS 0.9% IV 250 ml IV at bolus once; to be given as a bolus over 30 minutes Route: ld1 IV; Rate: bolus; Site: left forearm; Medication: 15:25 VIS not applicable for this client. bp Outcome: 18:30 Discharge ordered by MD. rn 19:15 Discharged to home via wheelchair, with significant other, dd2 19:15 Condition: stable 19:15 Discharge instructions given to patient, significant other, Instructed on discharge instructions, follow up and referral plans. Demonstrated understanding of instructions, follow-up care, 19:16 Patient left the ED. dd2 Signatures: Dispatcher [employer] EDMoisés Villalobos MD MD rn Peltier, Brian, RN RN bp Sims, Lauren, RN RN ld1 MARINO BUSH RN RN dd2
--- NOTE | 2024-11-22 18:30 | EDPHYS ---
Physician Documentation [facility] Name: Spenser Swartz Jr Age: 79 yrs Sex: Male : 1945 Arrival Date: 11/22/2024 Time: 15:18 Bed 4 Private MD: ED Physician Moisés Irving HPI: 11/22 17:26 This 79 yrs old Male presents to ER via EMS with complaints of General Weakness. rn 17:26 Patient reports generalized weakness and thirst for the last few days. Reports subacute rn fall and has mild headache. No focal weakness or numbness. No chest pain or shortness of breath. States overall his swelling in his legs have gotten better since recent admission and discharge. Denies any abdominal pain or vomiting or diarrhea. No blood in stool.. Onset: The symptoms/episode began/occurred 3 day(s) ago. Severity of symptoms: At their worst the symptoms were mild in the emergency department the symptoms are unchanged. The patient has experienced similar episodes in the past. The patient has been recently been admitted at [facility]. Historical: - Allergies: 15:22 Codeine; bp 15:22 PENICILLINS; bp - PMHx: 15:22 Anemia; Atrial fibrillation; Congestive heart failure; Hypertensive disorder; bp Parkinson's disease; - PSHx: 15:22 L shoulder rotator cuff; achilles tendon SX; triple bypass; bp - Immunization history:: Adult Immunizations up to date. - Infectious Disease History:: Denies. - Social history:: Smoking status: Patient denies any tobacco usage or history of. - Family history:: not pertinent. - Hospitalizations: : No recent hospitalization is reported. ROS: 17:26 Constitutional: Negative for fever, chills, and weight loss, Neck: Negative for injury, rn pain, and swelling, Cardiovascular: Negative for chest pain, palpitations, and edema, Respiratory: Negative for shortness of breath, cough, wheezing, and pleuritic chest pain, Abdomen/GI: Negative for abdominal pain, nausea, vomiting, diarrhea, and constipation, Back: Negative for injury and pain, : Negative for injury, bleeding, discharge, and swelling, MS/Extremity: Negative for injury and deformity, Skin: Negative for injury, rash, and discoloration, Neuro: Positive for generalized weakness Exam: 17:26 Constitutional: This is a well developed, well nourished patient who is awake, alert, rn and in no acute distress. ENT: Dry mucous membranes Cardiovascular: Regular rate and rhythm. No pulse deficits. Respiratory: Speaking full sentences, unlabored. Abdomen/GI: Soft, nontender, nondistended MS/ Extremity: Pulses equal, no cyanosis. Neuro: Awake and alert, GCS 15, oriented to person, place, time, and situation. Cranial nerves II-XII grossly intact. Motor strength 4/5 in all extremities. Sensory grossly intact. Coarse tremor noted Vital Signs: 15:21 BP 160 / 76; Pulse 70; Resp 15; Temp 98; Pulse Ox 98% ; bp 17:30 BP 140 / 69; Pulse 69; Resp 16; Pulse Ox 100% ; bp 17:58 BP 140 / 69; Pulse 70; Resp 18; Pulse Ox 100% on R/A; ld1 MDM: 15:23 Medical Screening Exam initiated rn 18:27 Differential Diagnosis Dehydration, Parkinson's, urinary tract infection, viral rn illness, electrolyte disorder. Data reviewed: vital signs, nurses notes, lab test result(s), EKG, radiologic studies, CT scan, plain films, and as a result, I will discharge patient. Counseling: I had a detailed discussion with the patient and/or guardian regarding the historical points, exam findings, and any diagnostic results supporting the discharge/admit diagnosis, lab results, radiology results, the need for outpatient follow up, to return to the emergency department if symptoms worsen or persist or if there are any questions or concerns that arise at home. Response to treatment: the patient's symptoms have mildly improved after treatment, and as a result, I will discharge patient. Special discussion: I discussed with the patient/guardian in detail that at this point there is no indication for admission to the hospital. It is understood, however, that if the symptoms persist or worsen the patient needs to return immediately for re-evaluation. Based on the history and exam findings, there is no indication for further emergent testing or inpatient evaluation. I discussed with the patient/guardian the need to see the primary care provider for further evaluation of the symptoms. ED course: Patient with improvement after drinking fluids and small bolus. No acute changes compared to most recent hospitalization. CT head negative. Chest x-ray images negative for pulmonary edema per my interpretation. Patient states feels better and wants to go home. No indication found at this time for emergent admission to the hospital. I have personally reviewed all of the results, including but not limited to blood tests and imaging deemed necessary to safely discharge this patient at this time. All results given to and printed out for patient. I personally went over all the results with the patient and answered all questions. Patient will follow-up with PCP and or specialist as discussed. Return precautions given and understood.. 11/22 15:30 Order name: Basic Metabolic Panel; Complete Time: 17:53 rn 11/22 15:30 Order name: CBC with Diff; Complete Time: 16: rn 11/22 15:30 Order name: LFT's; Complete Time: 17:53 rn 11/22 15:30 Order name: NT PRO-BNP; Complete Time: 17:53 rn 11/22 15:31 Order name: Urinalysis w/ reflexes; Complete Time: 16: rn 11/22 15:30 Order name: XRAY Chest (1 view); Complete Time: 16: rn 11/22 15:30 Order name: CT Head Brain wo Cont; Complete Time: 17: rn 11/22 15:30 Order name: EKG; Complete Time: 15:31 rn 11/22 15:30 Order name: Cardiac monitoring; Complete Time: 16:04 rn 11/22 15:30 Order name: EKG - Nurse/Tech; Complete Time: 16: rn 11/22 15:30 Order name: IV Saline Lock; Complete Time: 16:04 rn 11/22 15:30 Order name: Labs collected and sent; Complete Time: 16:04 rn 11/22 15:30 Order name: O2 Per Protocol; Complete Time: 15:32 rn 11/22 15:30 Order name: O2 Sat Monitoring; Complete Time: 15:32 rn EC:21 Rate is 70 beats/min. Rhythm is regular. QRS [place] is Normal. QT interval is normal. No rn Q waves. T waves are Normal. No ST changes noted. Clinical impression: paced rhythm. Interpreted by me. Reviewed by me. Administered Medications: 17:57 Drug: NS 0.9% IV 250 ml IV at bolus once; to be given as a bolus over 30 minutes Route: ld1 IV; Rate: bolus; Site: left forearm; Disposition Summary: 11/22/24 18:30 Discharge Ordered Notes: Location: Home rn Problem: an ongoing problem rn Symptoms: have improved rn Condition: Stable rn Diagnosis - Dehydration rn - Muscle weakness (generalized) rn Followup: rn - With: Private Physician - When: 2 - 3 days - Reason: Recheck today's complaints, Re-evaluation by your physician Discharge Instructions: - Discharge Summary Sheet rn - Dehydration, Adult rn - Weakness rn Forms: - Medication Reconciliation Form rn - Antibiotic travel journalist - Prescription Opioid Use rn - Patient Portal Instructions rn - Leadership Thank You Letter rn Signatures: Dispatcher [employer] EDMS Moisés Irving MD MD rn Peltier, Brian, RN RN Sarahy Gaytan RN RN ld1 Corrections: (The following items were deleted from the chart) 15:31 15:31 Head Brain Wo Cont+CT.RAD.BRZ ordered. EDID EDMS
[2024-11-22 19:32] VITALS: TEMP 98
[2024-11-22 19:33] VITALS: BP 140/69; O2SAT 100
--- NOTE | 2024-11-24 12:18 | EKG ---
Test Date: 2024-11-22 Test Time: 16:02:32 Hydrometer Calibrator: BP MEASUREMENT RESULTS: Intervals: Rate: 70 DC: QRSD: 194 QT: 468 QTc: 505 [place]: P: DC: QRS: -79 T: 101 INTERPRETIVE STATEMENTS: Ventricular-paced rhythm Abnormal ECG Compared to ECG 11/08/2024 21:17:47 Ventricular premature complex(es) no longer present Electronically Signed On 11-24-24 12:15:16 SALES RECRUITER by Constantin Blount
== END 2024-11-22 19:16 | disposition home or self-care (01) ==
LOC: ER 15:18
DX: E86.0 Dehydration (principal); M62.81 Muscle weakness (generalized); I10 Essential (primary) hypertension; G20.A1 Parkinson's disease without dyskinesia, without mention of fluctuations; Z95.1 Presence of aortocoronary bypass graft
CPT/HCPCS: 93005; 85025; 81001; 80048; 36415; 80076; 83880; 70450; 71045; 96374; 99284; J7050

== ENCOUNTER 2025-08-01 19:20 | Emergency (ER) | payer OTHER ==
[2025-08-01] MEDS ORDERED: BISACODYL 10 MG RECTAL SUPP ONE (20:25)
[2025-08-01] MEDS ORDERED: NA CHLORIDE 0.9% 500 ML ONE (20:25)
[2025-08-01] MEDS ORDERED: LACTULOSE 20 GM/30 ML UCUP ONE (20:26)
[2025-08-01 21:06] LABS: Absolute Lymphocytes (CBC) 0.7 K/uL (0.7-4.9); Hematocrit 44.9 % (39.6-49.0); Hemoglobin 15.1 g/dL (13.6-17.9); MCH 29.2 pg (27.0-35.0); MCHC 33.6 g/dL (32.0-36.0); MCV 87.1 fL (80-100); MPV 7.8 fL (7.6-11.3); Nucleated RBC Absolute Count 0.0 (0-0); Nucleated Red Blood Cells % 0.1 % (0-0); RBC Red Blood Cell Count 5.16 M/uL (4.33-5.43); White Blood Count 13.30 thou/uL (4.3-10.9)
[2025-08-01 21:22] LABS: ALT/SGPT 18.0 U/L (16-61); AST/SGOT 25.0 U/L (15-37); Albumin 4.0 g/dL (3.4-5.0); Albumin/Globulin Ratio 1.2 (1.1-1.8); Alkaline Phosphatase 229.0 U/L (45-117); Anion Gap 14.3 mEq/L (5.0-15.0); BUN Blood Urea Nitrogen 58.0 mg/dL (7-18); Globulin 3.3 g/dL (2.3-3.5); Glucose Level 237.0 mg/dL (74-106); Lipase 138.0 U/L (13-75); Potassium 4.3 mEq/L (3.5-5.1)
--- NOTE | 2025-08-01 22:23 | RAD REPORT ---
EXAMINATION: CT ABDOMEN AND PELVIS WITHOUT CONTRAST CLINICAL INDICATION: CONSTIPATION TECHNIQUE: CT abdomen and pelvis was performed, without IV contrast, as per department protocol. Axia l, sagittal and coronal reconstructions were obtained. One or more of the following dose reduction techniques were used: Automated exposure control, adjustment of the mA and kV according to the patien t size, and iterative reconstruction. Unless otherwise specified, incidental findings do not require dedicated imaging follow-up. COMPARISON: 06/04/2024 FINDINGS: The lack of intravenous contrast limits the sensitivity of this exam for evaluation of solid visceral organs, vascular structures, and retroperitoneum. LOWER CHEST: The visualized lung bases are clear. Small hiatal hernia. Pacer wires are noted. LIVER:Normal in size and contour. No focal lesion. Grossly unremarkable gallbladder. SPLEEN: Normal size. No focal lesion. PANCREAS: No mass, ductal dilation, or ruby-pancreatic fluid. ADRENALS: Normal; no mass. KIDNEYS AND URETERS: Normal size and contour. No hydronephrosis. 17 mm cyst anterior right kidney. URINARY BLADDER: Normal contour. GASTROINTESTINAL TRACT: No evidence of bowel obstruction, significant free fluid, free air or abscess . Moderate stool retention is present notable in the rectum. Moderate sigmoid diverticulosis coli without. APPENDIX: Normal appendix. LYMPH NODES: No lymphadenopathy. MUSCULOSKELETAL: Mild multilevel spinal degenerative changes. Mild degenerative dextroscoliosis. ADDITIONAL FINDINGS: Aortoiliac atherosclerosis. IMPRESSION: Moderate stool retention with possible impaction in the rectum. Sigmoid diverticulosis coli without diverticulitis.
[2025-08-01] MEDS ORDERED: FLEET ENEMA ADULT PR ONE (23:25)
[2025-08-02 00:01] LABS: Sqamous Epithelial <5 /HPF (None Seen); Urine Culture Reflex Order NOT NEEDED; Urine Microscopic Reflex YN ORDER UMIC
--- NOTE | 2025-08-02 00:10 | ER ---
Nurse's Notes [facility] Name: Spenser Swartz Jr Age: 80 yrs Sex: Male : 1945 Arrival Date: 08/01/2025 Time: 19:20 Bed 15 Private MD: Diagnosis: Constipation, unspecified;Fecal impaction;Retention of urine, unspecified Presentation: 08/01 19:30 Chief complaint: EMS states: constipated since yesterday. He feels like he has to have kj2 a bowel movement but can not. Coronavirus screen: Client denies travel out of the [place] in the last 14 days. Ebola Screen: No symptoms or risks identified at this time. Initial Sepsis Screen: Does the patient meet any 2 criteria? No. Patient's initial sepsis screen is negative. Does the patient have a suspected source of infection? No. Patient's initial sepsis screen is negative. Risk Assessment: Do you want to hurt yourself or someone else? Patient reports no desire to harm self or others. Onset of symptoms was August 01, 2025. 19:30 Method Of Arrival: EMS: [facility] kj2 19:30 Acuity: AMA 3 kj2 Triage Assessment: 19:33 General: Appears in no apparent distress. Behavior is calm, cooperative. Pain: kj2 Complains of pain in buttocks Pain currently is 5 out of 10 on a pain scale. Neuro: Level of Consciousness is awake, alert, obeys commands, Oriented to person, place, time, situation. Cardiovascular: Patient's skin is warm and dry. Respiratory: Airway is patent Respiratory effort is even, unlabored. GI: Reports constipation. : No signs and/or symptoms were reported regarding the genitourinary system. Historical: - Allergies: 19:32 Codeine; kj2 19:32 PENICILLINS; kj2 - PMHx: 19:32 Anemia; Atrial fibrillation; Congestive heart failure; Hypertensive disorder; kj2 Parkinson's disease; - PSHx: 19:32 achilles tendon SX; achilles tendon SX; L shoulder rotator cuff; triple bypass; kj2 - Immunization history:: Adult Immunizations unknown. - Infectious Disease History:: Denies. - Social history:: Smoking status: unknown. Screenin:[facility] ED Fall Risk Assessment (Adult) History of falling in the last 3 months, kj2 including since admission No falls in past 3 months (0 pts) Confusion or Disorientation No (0 pts) Intoxicated or Sedated No (0 pts) Impaired Gait No (0 pts) Mobility Assist Device Used No (0 pt) Altered Elimination No (0 pt) Score/Fall Risk Level 0 - 2 = Low Risk Maintained a safe environment, Hourly rounding (assess needs \T\ fall precautionary measures) done. Abuse screen: Denies threats or abuse. Denies injuries from another. Nutritional screening: No deficits noted. Tuberculosis screening: No symptoms or risk factors identified. Assessment: 19:34 General: see triage assessment. kj2 20:30 Reassessment: Patient appears in no apparent distress at this time. Patient and/or kj2 family updated on plan of care and expected duration. Pain level reassessed. Patient is alert, oriented x 3, equal unlabored respirations, skin warm/dry/pink. 21:29 Reassessment: Patient appears in no apparent distress at this time. Patient and/or 2 family updated on plan of care and expected duration. Pain level reassessed. Patient is alert, oriented x 3, equal unlabored respirations, skin warm/dry/pink. patient refusing straight cath to obtain urine for UA. 21:31 Reassessment: bladder [id number]. kj2 22:30 Reassessment: Patient appears in no apparent distress at this time. Patient and/or kj2 family updated on plan of care and expected duration. Pain level reassessed. Patient is alert, oriented x 3, equal unlabored respirations, skin warm/dry/pink. 23:30 Reassessment: Patient appears in no apparent distress at this time. Patient and/or kj2 family updated on plan of care and expected duration. Pain level reassessed. Patient is alert, oriented x 3, equal unlabored respirations, skin warm/dry/pink. 08/02 00:33 General: Pt cleaned of incontinence. fresh brief and pads are in place. Pt is up for kd3 discharge and is awaiting his ride. Pt is being kept on monitoring while awaiting his ride. VSS. pt is alert and oriented x 4, respirations are even and unlabored, skin is warm and dry. pt has no further requests at this time. . Neuro: Level of Consciousness is awake, alert, obeys commands, Oriented to person, place, time, situation. Cardiovascular: Capillary refill < 3 seconds Patient's skin is warm and dry. Respiratory: Airway is patent Trachea midline Respiratory effort is even, unlabored, Respiratory pattern is regular, symmetrical. GI: Stools are reported to be normal. Vital Signs: 08/01 19:30 BP 154 / 77; Pulse 70; Resp 18; Pulse Ox 97% on R/A; kj2 20:30 BP 152 / 75; Pulse 70; Resp 18; Pulse Ox 99% on R/A; kj2 21:16 BP 134 / 94; Pulse 69; Resp 18; Pulse Ox 100% ; kj2 23:45 BP 176 / 81; Pulse 70; Resp 16; Pulse Ox 100% on R/A; kj2 08/02 00:35 BP 147 / 83; Pulse 72; Resp 19; Pulse Ox 97% on R/A; kd3 ED Course: 08/01 19:20 Patient arrived in ED. rk3 19:29 Ivet Sutherland RN is Primary Nurse. kj2 19:30 Patient has correct armband on for positive identification. Bed in low position. Call kj2 light in reach. Side rails up X2. Provided Education on: call light. 19:31 Jamil Amaro PA-C is PHCP. cp 19:31 Jamil Ceja MD is Attending Physician. cp 19:32 Triage completed. kj2 20:55 Inserted saline lock: 20 gauge in right forearm, using aseptic technique. Blood cp4 collected. Flushed with 10 mL NS. 22:06 Abdomen In Process Unspecified. EDMS 08/02 00:08 Report given to LYDIA Gonzalez. kj2 00:36 No provider procedures requiring assistance completed. IV discontinued, intact, kd3 bleeding controlled, No redness/swelling at site. Pressure dressing applied. 00:36 Arm band placed on right wrist. kd3 Administered Medications: 08/01 20:47 Drug: Lactulose PO 30 grams 45 ml PO once Volume: 45 ml; Route: PO; kj2 23:57 Follow up: Response: No adverse reaction kj2 20:48 Drug: Dulcolax NE Suppository 10 mg NE once Route: NE; kj2 23:57 Follow up: Response: No adverse reaction kj2 21:02 Drug: NS 0.9% IV 500 ml IV at calculated rate once; to be given as a bolus over 90 kj2 minutes Route: IV; Rate: calculated rate; Site: right antecubital; 23:57 Follow up: IV Status: Completed infusion; IV Intake: 500ml kj2 23:57 Drug: Fleet Enema NE 133 ml NE once; may repeat once Route: NE; kj2 23:57 Follow up: Response: No adverse reaction kj2 Medication: 08/02 00:36 VIS not applicable for this client. kd3 Intake: 08/01 23:57 IV: 500ml; Total: 500ml. kj2 Outcome: 08/02 00:10 Discharge ordered by MD. bright 00:36 Condition: stable kd3 01:08 Discharged to home via wheelchair, with friend, kd3 01:08 Discharge instructions given to patient, Instructed on discharge instructions, follow up and referral plans. Demonstrated understanding of instructions, follow-up care, 01:08 Patient left the ED. kd3 Signatures: Dispatcher [employer] EDMS Jamil Amaro PA-C PA-C cp Doucette, Kyli RN RN kd3 Nazia Kevin cp4 Ivet Sutherland RN RN kj2 Dino Dubon rk3
--- NOTE | 2025-08-02 00:10 | EDPHYS ---
[facility] Name: Spenser Swartz Jr Age: 80 yrs Sex: Male : 1945 Arrival Date: 08/01/2025 Time: 19:20 Bed 15 Private MD: ED Physician Jamil Ceja HPI: 08/01 19:55 This 80 yrs old Male presents to ER via EMS with complaints of Constipation. cp 19:55 The patient presents with constipation. cp 19:55 Onset: The symptoms/episode began/occurred yesterday. Associated signs and symptoms: cp Pertinent positives: difficulty urinating, Pertinent negatives: blood in stools, chest pain, diarrhea, fever, testicular pain, vomiting. The symptoms are described as constant. Severity of pain: in the emergency department the pain is unchanged despite home interventions. Historical: - Allergies: 19:32 Codeine; kj2 19:32 PENICILLINS; kj2 - PMHx: 19:32 Anemia; Atrial fibrillation; Congestive heart failure; Hypertensive disorder; kj2 Parkinson's disease; - PSHx: 19:32 achilles tendon SX; achilles tendon SX; L shoulder rotator cuff; triple bypass; kj2 - Immunization history:: Adult Immunizations unknown. - Infectious Disease History:: Denies. - Social history:: Smoking status: unknown. ROS: 20:00 Constitutional: Negative for body aches, chills, fever, cp 20:00 Eyes: Negative for injury, pain, redness, and discharge, cp 20:00 ENT: Negative for drainage from ear(s), ear pain, sore throat, difficulty swallowing, difficulty handling secretions, 20:00 Cardiovascular: Negative for chest pain, palpitations, 20:00 Respiratory: Negative for cough, shortness of breath, wheezing, 20:00 Abdomen/GI: Positive for abdominal pain, nausea, constipation, abdominal distension, Negative for vomiting, diarrhea, 20:00 : Positive for difficulty urinating, Negative for hematuria, testicular pain 20:00 All other systems are negative, Exam: 20:05 Constitutional: The patient appears in no acute distress, alert, awake, cp non-diaphoretic, non-toxic, well developed, well nourished, uncomfortable, 20:05 Head/Face: Normocephalic, atraumatic. cp 20:05 Eyes: Periorbital structures: appear normal, Conjunctiva: normal, no exudate, no injection, Sclera: no appreciated abnormality, Lids and lashes: appear normal, bilaterally, 20:05 ENT: External ear(s): are unremarkable, Nose: is normal, Mouth: Lips: moist, Oral mucosa: moist, Posterior pharynx: Airway: no evidence of obstruction, patent, 20:05 Neck: ROM/movement: is normal, is supple, without pain, no range of motions limitations, 20:05 Chest/axilla: Inspection: normal, Palpation: is normal, no crepitus, no tenderness, 20:05 Cardiovascular: Rate: normal, Edema: is not appreciated, JVD: is not appreciated, 20:05 Respiratory: the patient does not display signs of respiratory distress, Respirations: normal, no use of accessory muscles, no retractions, labored breathing, is not present, Breath sounds: are clear throughout, no decreased breath sounds, no stridor, no wheezing, 20:05 Abdomen/GI: Inspection: distension, that is mild, obese Bowel sounds: active, all quadrants, Palpation: soft, in all quadrants, mild abdominal tenderness, in all quadrants, 20:05 Back: CVA tenderness, is absent, 20:05 Skin: cellulitis, is not appreciated, no rash present. 20:05 Neuro: Orientation: to person, place \T\ time. Mentation: is normal, Motor: moves all fours, Sensation: no obvious gross deficits, Vital Signs: 19:30 BP 154 / 77; Pulse 70; Resp 18; Pulse Ox 97% on R/A; kj2 20:30 BP 152 / 75; Pulse 70; Resp 18; Pulse Ox 99% on R/A; kj2 21:16 BP 134 / 94; Pulse 69; Resp 18; Pulse Ox 100% ; kj2 23:45 BP 176 / 81; Pulse 70; Resp 16; Pulse Ox 100% on R/A; kj2 08/02 00:35 BP 147 / 83; Pulse 72; Resp 19; Pulse Ox 97% on R/A; kd3 MDM: 08/01 19:31 Medical Screening Exam initiated cp 08/02 00:10 Data reviewed: vital signs, nurses notes, lab test result(s), radiologic studies, CT cp scan, and as a result, I will discharge patient. 00:10 I considered the following discharge prescriptions or medication management in the emergency department Medications were administered in the Emergency Department. See MAR. Care significantly affected by the following chronic conditions: Hypertension, Congestive Heart Failure. Counseling: I had a detailed discussion with the patient and/or guardian regarding the historical points, exam findings, and any diagnostic results supporting the discharge/admit diagnosis, lab results, radiology results. Response to treatment: the patient's symptoms have markedly improved after treatment, patient observed to have large bowel movement and observed urinating. 08/01 19:46 Order name: CBC with Diff; Complete Time: 22:50 cp 08/01 19:46 Order name: CMP; Complete Time: 22:50 cp 08/01 22:51 Interpretation: Normal except: NA 131; CL 97; GLUC 237; BUN 58; CRE 1.94; GFR 34; ALK cp 229. 08/01 19:46 Order name: Lipase; Complete Time: 22:50 cp 08/01 19:46 Order name: UA Rfx Javier Cult if indicated; Complete Time: 00:07 cp 08/02 00:07 Interpretation: UGLUC 4+ (Over); UPROT TRACE; Reviewed. 08/01 21:45 Order name: Abdomen ; Complete Time: 22:50 EDMS 08/01 19:46 Order name: IV Saline Lock; Complete Time: 21:02 cp 08/01 19:46 Order name: Labs collected and sent; Complete Time: 21:03 cp 08/01 19:46 Order name: Bladder Scanner; Complete Time: 21:32 cp Administered Medications: 08/01 20:47 Drug: Lactulose PO 30 grams 45 ml PO once Volume: 45 ml; Route: PO; kj2 23:57 Follow up: Response: No adverse reaction kj2 20:48 Drug: Dulcolax WV Suppository 10 mg WV once Route: WV; kj2 23:57 Follow up: Response: No adverse reaction kj2 21:02 Drug: NS 0.9% IV 500 ml IV at calculated rate once; to be given as a bolus over 90 kj2 minutes Route: IV; Rate: calculated rate; Site: right antecubital; 23:57 Follow up: IV Status: Completed infusion; IV Intake: 500ml kj2 23:57 Drug: Fleet Enema WV 133 ml WV once; may repeat once Route: WV; kj2 23:57 Follow up: Response: No adverse reaction kj2 Disposition Summary: 08/02/25 00:10 Discharge Ordered Notes: Location: Home cp Problem: new cp Symptoms: have improved cp Condition: Stable cp Diagnosis - Constipation, unspecified cp - Fecal impaction cp - Retention of urine, unspecified cp Followup: cp - With: Private Physician - When: 2 - 3 days - Reason: Worsening of condition Discharge Instructions: - Discharge Summary Sheet cp - Constipation, Adult cp - Acute Urinary Retention, Male cp - Fecal Impaction cp Forms: - Medication Reconciliation Form cp - Antibiotic Education cp - Prescription Opioid Use cp - Patient Portal Instructions cp - Leadership Thank You Letter cp Addendum: 08/04/2025 07:52 Co-signature as Attending Physician, Jamil Ceja MD I agree with the assessment and c hall plan of care. Signatures: Dispatcher [employer] [facility] Jamil Ceja MD MD cha Page, Corey, PA-C PA-C Ivet Garcia, RN RN kj2 Corrections: (The following items were deleted from the chart) 08/01 21:45 19:46 Abdomen Pelvis W Con+[id number].[id number] ordered. [facility] 08/02 00:07 00:07 Reviewed. cp cp
[2025-08-02 06:27] VITALS: BP 147/83; O2SAT 97
== END 2025-08-02 01:08 | disposition home or self-care (01) ==
LOC: ER 19:20
DX: K56.41 Fecal impaction (principal); R33.9 Retention of urine, unspecified; I48.11 Longstanding persistent atrial fibrillation; I50.9 Heart failure, unspecified; G20.A1 Parkinson's disease without dyskinesia, without mention of fluctuations; Z88.0 Allergy status to penicillin; Z88.5 Allergy status to narcotic agent
CPT/HCPCS: 96361; 85025; 81001; 36415; 83690; 80053; 74176; 96360; 99284; J7040